=== PATIENT | male | born 1945 | race Caucasian/White ===

== ENCOUNTER 2022-01-02 10:42 | Outpatient (CLI) | payer MEDICARE, BC, SELFPAY ==
[2022-01-02] MEDS: TETRACAINE 0.5% OPHTH 1 DROP EYE-BOTH ×3 (11:01→11:33)
[2022-01-02] MEDS: BRIMONIDINE TARTRATE 0.2% OPHTH 1 DROP EYE-BOTH ×2 (11:02→11:42)
[2022-01-02 11:13] VITALS: BP 165/79; RESP 16; O2SAT 98
--- NOTE | 2022-01-02 15:15 | PM.PROC ---
Procedure Note Will [facility] bill your pro fee for this procedure?: Yes Procedure: SURGEON: Kia Mendenhall MD PREOPERATIVE DIAGNOSIS: Posterior capsular opacity, right and left eye POSTOPERATIVE DIAGNOSIS: Posterior capsular opacity, right and left eye PROCEDURE: YAG laser capsulotomy, both eyes ANESTHESIA: Topical. ESTIMATED BLOOD LOSS: None PATHOLOGY SPECIMEN: None COMPLICATIONS: None INDICATIONS: See consult note for details. The risks, benefits and alternatives of the procedure were explained to the patient, who elected to proceed and signed informed consent to do so. PROCEDURE: The patient was brought to the pre-holding area where the right and left eyes were identified as the operative eyes. I placed my initials above the eyes. The following was given in both eyes: The patient received 2 sets of 1 drop of 0.5% tetracaine and 1 drop of 1% tropicamide. They also received 1 drop of 0.2% brimonidine. They received 1 drop of 0.5% tetracaine immediately prior to bringing them back for the procedure. The patient was then brought to the procedure room where the right and left eyes were again identified as the operative eyes. A YAG Daniel capsulotomy lens was placed on the right eye. The laser was administered using a total number of 8 shots with an energy of 2.4 mJ per shot for a total energy of 19 mJ. The patient tolerated the procedure well. A YAG Daniel capsulotomy lens was placed on the left eye. The laser was administered using a total number of 11 shots with an energy of 2.4 mJ per shot for a total energy of 26 mJ. The patient tolerated the procedure well. DISPOSITION: The patient was taken back to the pre-holding area and given 1 drop of 0.2% brimonidine in both eyes. They were discharged to home in stable condition. The patient was instructed to call me or go to the emergency department with any sudden change, including dramatic loss of vision, severe pain in the eye or eyebrow region, nausea, or vomiting. The patient was instructed to use the 0.2% brimonidine 1 drop 2 times a day in both eyes for 1 week. The patient will follow up in the clinic in 1-2 weeks.
== END 2022-01-02 11:45 | disposition home or self-care (01) ==
PROVIDERS: Visit Provider Ophthalmology
DX: H26.9 Unspecified cataract (principal)
CPT/HCPCS: 66821; A9270

== ENCOUNTER 2022-07-15 09:20 | Outpatient (CLI) | payer MEDICARE, BC, SELFPAY ==
[2022-07-15 12:37] LABS: Albumin* 4.1 g/dL (3.3-5.0)
[2022-07-15 12:38] LABS: Chloride* 106 mmol/L (96-114); Potassium* 4.5 mmol/L (3.6-5.1); Sodium* 141 mmol/L (135-149)
[2022-07-15 12:40] LABS: Carbon Dioxide* 32 mmol/L (20-32); Cholesterol* 214 mg/dL (90-199); Creatinine* 0.9 mg/dL (0.5-1.5); Estimated Glomerular Filt Rate 87 ml/min; Total Protein* 6.7 g/dL (6.0-8.3)
[2022-07-15 12:41] LABS: Alanine Aminotransferase* 22 U/L (4-50); Alkaline Phosphatase* 67 U/L (40-150); Aspartate Amino Transferase* 22 U/L (12-35); Blood Urea Nitrogen* 25 mg/dL (7-30); Glucose* 110 mg/dL (60-115); HDL Cholesterol* 71 mg/dL (>=40); LDL Cholesterol Calculated 129 mg/dL (<100); Triglycerides* 68 mg/dL (40-149)
[2022-07-15 13:11] LABS: PSA Screen* 3.04 ng/mL (0.10-4.00)
== END 2022-07-15 09:21 | disposition home or self-care (01) ==
PROVIDERS: PCP Internal Medicine; Visit Provider Internal Medicine
DX: Z00.00 Encounter for general adult medical examination without abnormal findings (principal); I42.9 Cardiomyopathy, unspecified; N40.0 Benign prostatic hyperplasia without lower urinary tract symptoms; I10 Essential (primary) hypertension; Z12.5 Encounter for screening for malignant neoplasm of prostate
CPT/HCPCS: 80053; 80061; 84153

== ENCOUNTER 2023-05-07 14:05 | Outpatient (CLI) | payer MEDICARE, BC, SELFPAY | END 2023-05-07 14:06 | disposition home or self-care (01) | PROVIDERS: PCP Internal Medicine; Visit Provider Internal Medicine Cardiovascular Disease | DX: I42.9 Cardiomyopathy, unspecified (principal); I77.810 Thoracic aortic ectasia; I34.0 Nonrheumatic mitral (valve) insufficiency; I51.7 Cardiomegaly; I10 Essential (primary) hypertension; R73.03 Prediabetes | CPT/HCPCS: 80048; 80076; 84443; 93306 ==

== ENCOUNTER 2023-06-14 05:52 | Outpatient (CLI) | payer MEDICARE, BC, SELFPAY | END 2023-06-14 05:53 | disposition home or self-care (01) | LOC: AMB 06-16 09:37 | PROVIDERS: PCP Internal Medicine; Visit Provider Internal Medicine | DX: R10.9 Unspecified abdominal pain (principal) | CPT/HCPCS: A0425; A0427 ==

== ENCOUNTER 2023-06-14 06:36 | Observation (INO) | payer MEDICARE, BC, SELFPAY ==
[2023-06-14] VITALS (56 sets, daily range): BP systolic 121–169; BP diastolic 76–114; PULSE 67–96; RESP 16–18; TEMP 36.1–37.1; O2SAT 92–100
--- NOTE | 2023-06-14 | CRLHL7_ITS ---
For Patients: As a result of the 21st Century Cures Act, medical imaging exams and procedure reports are released immediately into your electronic medical record. You may view this report before your referring provider. If you have questions, please contact your health care provider. Indication: Left-sided temporal mass, right leg weakness Technique: High-resolution sagittal and coronal, pre and postcontrast T1 weighted sequences through the pituitary gland, axial diffusion, T2 FLAIR sequences are provided. A total of 15 mL Dotarem IV contrast was administered. Comparison: Earlier same day CT head and MRA head Findings: There is artifact from patient motion, degrading image quality. Mild prominence of the ventricles and cortical sulci, compatible with generalized cerebral volume loss. Patchy areas of FLAIR hyperintensity throughout the supratentorial white matter, typical of chronic microangiopathy. No acute/subacute ischemic, intracranial hemorrhage or abnormal extra-axial fluid collection. No midline shift, hydrocephalus, or herniation. There is a lobulated homogeneously enhancing extra-axial mass centered along the right anterior clinoid process and extending along the sphenoid wing. Oblique orthogonal dimensions in axial plane are estimated at 2.8 x 1.4 cm (series 23, image 74), and approximately 2.3 cm craniocaudal the coronal plane (series 24 image 117). Allowing for artifact from patient motion, suspect up to 270 degree encasement of the right supraclinoid ICA/terminus, without evidence of luminal narrowing. Also suspect encroachment upon the pre chiasmatic right optic nerve. No evidence suspicious regions of abnormal contrast enhancement within the sella. The optic chiasm and infundibulum are midline and within normal limits. Mild mucosal thickening throughout the maxillary sinuses and ethmoid air cells. No paranasal sinus air-fluid level. Nonspecific right mastoid effusion. Bilateral lens implants. Impression: 1. Lobulated homogeneously enhancing extra-axial mass centered along the right anterior clinoid process and sphenoid wing, most suggestive of meningioma. 2. 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 3. Unremarkable MR appearance of the sella/pituitary gland. No acute intracranial abnormality. 4. Mild generalized cerebral volume loss and moderate chronic microangiopathy changes. Dictated by Jaylin Wooten MD @ 06/14/2023 1:47:42 PM (Electronically Signed)
--- NOTE | 2023-06-14 | CRLHL7_ITS ---
For Patients: As a result of the Century Cures Act, medical imaging exams and procedure reports are released immediately into your electronic medical record. You may view this report before your referring provider. If you have questions, please contact your health care provider. Indication: Left-sided temporal mass, right leg weakness Technique: 3D [id number] MR angiogram of the [id number] with 3-dimensional MIP projections were submitted. Axial DWI/ADC sequences were also obtained through the brain. Comparison: No prior studies available for comparison at this institution. Findings: The visualized first and second order intracranial vessels are unremarkable. No occlusion/filling defect or acquired arterial stenosis identified. No aneurysm or vascular malformation seen. No abnormal restricted diffusion. Impression: 1. Unremarkable MRA of the head as far as visualized. 2. No evidence of acute/subacute ischemia. Dictated by Jaylin Wooten MD @ 06/14/2023 11:52:02 AM (Electronically Signed)
--- NOTE | 2023-06-14 06:57 | CRLHL7_ITS ---
For Patients: As a result of the Century Cures Act, medical imaging exams and procedure reports are released immediately into your electronic medical record. You may view this report before your referring provider. If you have questions, please contact your health care provider. INDICATION: Vertigo. TECHNIQUE: CT head without contrast. COMPARISON: None. FINDINGS: CSF spaces: Within normal limits for age. Brain parenchyma and extra-axial spaces: A 2 cm partially calcified right parasellar mass is seen for example on axial series 2, image 26. No mass seen elsewhere. No intracranial hemorrhage and no sign of acute ischemia. No mass effect or midline shift. There are moderate chronic microvascular changes. Skull base and calvarium: Trace effusion in the right mastoid air cells and middle ear. The visualized orbits are grossly unremarkable. No skull fractures. IMPRESSION: 1. No acute abnormality evident. 2. 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 This should be further evaluated with contrast-enhanced brain MRI. 3. Trace effusion in the right mastoid air cells and middle ear. 4. No other finding to explain vertigo. Please note that all CT scans at this facility use dose modulation, iterative reconstruction, and/or weight-based dosing when appropriate to reduce radiation dose to as low as reasonably achievable. Dictated by Drew Corrales MD @ 06/14/2023 7:29:25 AM (Electronically Signed)
--- NOTE | 2023-06-14 06:59 | ED_ITS ---
HPI - General Adult General Chief complaint: Nausea/Vomiting <Vitaliy Solo MD - Last Filed: 06/14/23 07:07> Stated complaint: nausea, abdominal pain, dizziness <Vitaliy Solo MD - Last Filed: 06/14/23 07:07> Time Seen by Provider: 06/14/23 06:57 <Vitaliy Solo MD - Last Filed: 06/14/23 07:07> History of Present Illness HPI narrative: Patient is a 78-year-old gentleman who woke up during the night to go the restroom and feels like he moved his head too fast. As result he has developed dizziness which is worsened with head movement. He has never had vertigo like this in the past. He has had no other neurologic symptoms. He has had no chest pain shortness a breath orthopnea no PND. He has been up vomiting with tonight but has had no blood in his vomitus. He has had no change in his bowels. He has no pain. Patient id due to his symptoms alerted EMS who brought to the emergency room. <Vitaliy Solo MD - Last Filed: 06/14/23 07:07> Related Data Home medications: Home Medications Medication Instructions Recorded Confirmed amiodarone 200 mg tablet 200 mg PO QDAY 07/15/22 05/21/23 apixaban 5 mg tablet (Eliquis) 5 mg PO BID 07/15/22 05/21/23 metoprolol succinate 50 mg tab PO 07/15/22 05/21/23 tablet,extended release 24 hr lisinopril 20 mg tablet 40 mg PO QDAY 01/03/23 05/21/23 spironolactone 25 mg tablet 25 mg PO QDAY 06/09/23 <Vitaliy Solo MD - Last Filed: 06/14/23 07:07> Allergies/adverse reactions: Allergies Allergy/AdvReac Type Severity Reaction Status Date / Time No Known Drug Allergies Allergy Verified 05/21/23 08:40 <Vitaliy Solo MD - Last Filed: 06/14/23 07:07> Review of Systems Status of ROS: Reports: 10 or more systems reviewed and unremarkable except as noted in History and below <Vitaliy Solo MD - Last Filed: 06/14/23 07:07> PFSH PFSH Medical History: Medical History Nausea ?R11.0 - Nausea (ICD-10) Chronic neck and back pain ?M54.2 - Cervicalgia (ICD-10) ?M54.9 - Dorsalgia, unspecified (ICD-10) ?G89.29 - Other chronic pain (ICD-10) Neck Pain ?M54.2 - Cervicalgia (ICD-10) Lyme disease ?A69.20 - Lyme disease, unspecified (ICD-10) Sciatica ?M54.30 - Sciatica, unspecified side (ICD-10) Prediabetes ?R73.03 - Prediabetes (ICD-10) Ascending aorta dilation ?I77.810 - Thoracic aortic ectasia (ICD-10) Cardiomyopathy ?I42.9 - Cardiomyopathy, unspecified (ICD-10) Prostate enlargement ?N40.0 - Benign prostatic hyperplasia without lower urinary tract symptoms (ICD-10) Adrenal abnormality (09/21/21) ?E27.9 - Disorder of adrenal gland, unspecified (ICD-10) History of nephrolithiasis ?Z87.442 - Personal history of urinary calculi (ICD-10) PAF (paroxysmal atrial fibrillation) ?I48.0 - Paroxysmal atrial fibrillation (ICD-10) Mitral regurgitation ?I34.0 - Nonrheumatic mitral (valve) insufficiency (ICD-10) Memory loss, short term ?R41.3 - Other amnesia (ICD-10) History of elevated prostate specific antigen (PSA) ?Z87.898 - Personal history of other specified conditions (ICD-10) Hypertension ?I10 - Essential (primary) hypertension (ICD-10) <Vitaliy Solo MD - Last Filed: 06/14/23 07:07> Surgical History: Surgical History History of cardioversion ?Z92.89 - Personal history of other medical treatment (ICD-10) History of cataract surgery (2016) ?Z98.49 - Cataract extraction status, unspecified eye (ICD-10) <Vitaliy Solo MD - Last Filed: 06/14/23 07:07> Family History: Family History Father Coronary artery disease High cholesterol Mother Diabetes High cholesterol High blood pressure <Vitaliy Solo MD - Last Filed: 06/14/23 07:07> Social History: Social History Smoking Status: Never smoker Non-prescribed substance use: denies use Little interest or pleasure in doing things: not at all Feeling down, depressed, or hopeless: not at all <Vitaliy Solo MD - Last Filed: 06/14/23 07:07> Exam Narrative: Exam Narrative: EXAM GENERAL: Patient appears comfortable and well. EYES: No scleral icterus. ENT: Tympanic membranes and oropharynx normal. THYROID: no thyroid nodules or thyromegaly. LYMPH: No supraclavicular or cervical lymphadenopathy. SKIN: Visible skin seen during exam normal or with benign process only. EXT: No dependent lower extremity pedal edema. HEART: Regular rate and rhythm with no murmurs, rubs, or gallops. LUNGS: Clear to auscultation bilaterally with no crackles or wheezes. ABD: Soft, non tender, non distended. PSYCH: Good eye contact, speech is not pressured. Neurologic cranial nerves 2-12 grossly intact no focal defects. <Vitaliy Solo MD - Last Filed: 06/14/23 07:07> Const: Vital Signs, click to edit/add: Vital Signs - 24 hr 06/14/23 06:49 06/14/23 06:56 06/14/23 07:00 Temperature 97.0 F L Pulse Rate 71 72 Pulse Rate [Right Pulse Oximeter] 72 Respiratory Rate 16 Blood Pressure Blood Pressure [Ri ght Upper Arm] 121/94 H Pulse Oximetry 100 100 100 Oxygen Delivery Me thod Room Air 06/14/23 07:03 06/14/23 07:27 06/14/23 07:29 Temperature Pulse Rate 68 72 73 Pulse Rate [Right Pulse Oximeter] Respiratory Rate Blood Pressure 161/87 H 163/93 H Blood Pressure [Ri ght Upper Arm] Pulse Oximetry 100 100 100 Oxygen Delivery Me thod 06/14/23 07:30 06/14/23 07:32 06/14/23 07:45 Temperature Pulse Rate 73 70 67 Pulse Rate [Right Pulse Oximeter] Respiratory Rate Blood Pressure 160/105 H Blood Pressure [Ri ght Upper Arm] Pulse Oximetry 100 99 [facility] 07:47 06/14/23 08:00 06/14/23 08:02 Temperature Pulse Rate 70 70 68 Pulse Rate [Right Pulse Oximeter] Respiratory Rate Blood Pressure 142/84 H 148/84 H Blood Pressure [Ri ght Upper Arm] Pulse Oximetry 95 92 94 [facility] 06[facility]23 08:17 06/14/23 08:32 06/14/23 08:47 Temperature Pulse Rate Pulse Rate [Right Pulse Oximeter] Respiratory Rate Blood Pressure 166/94 H 157/95 H 143/80 H Blood Pressure [Ri ght Upper Arm] Pulse Oximetry [facility] 06/[facility]/23 09:02 06/14/23 09:08 06/14/23 09:17 Temperature Pulse Rate 71 Pulse Rate [Right Pulse Oximeter] Respiratory Rate Blood Pressure 137/90 H 146/82 H Blood Pressure [Ri ght Upper Arm] Pulse Oximetry 98 [facility] 06/[facility]/23 09:25 06/14/23 09:30 06/14/23 09:32 Temperature Pulse Rate 76 71 71 Pulse Rate [Right Pulse Oximeter] Respiratory Rate Blood Pressure 153/91 H Blood Pressure [Ri ght Upper Arm] Pulse Oximetry 99 95 96 [facility] 06/14/23 09:45 06/14/23 09:47 06/14/23 09:48 Temperature Pulse Rate 71 74 71 Pulse Rate [Right Pulse Oximeter] Respiratory Rate Blood Pressure 162/99 H Blood Pressure [Ri ght Upper Arm] Pulse Oximetry 98 100 97 [facility] 06/14/23 10:00 06/14/23 12:18 06/14/23 12:30 Temperature Pulse Rate 79 77 72 Pulse Rate [Right Pulse Oximeter] Respiratory Rate Blood Pressure Blood Pressure [Ri ght Upper Arm] Pulse Oximetry 99 99 100 [facility] 06/14/23 12:32 06/14/23 12:45 06/14/23 12:47 Temperature Pulse Rate 71 75 72 Pulse Rate [Right Pulse Oximeter] Respiratory Rate Blood Pressure 158/89 H 153/96 H Blood Pressure [Ri ght Upper Arm] Pulse Oximetry 97 100 96 Oxygen Delivery Me thod 06/14/23 13:00 06/14/23 13:02 06/14/23 13:03 Temperature Pulse Rate 73 74 73 Pulse Rate [Right Pulse Oximeter] Respiratory Rate Blood Pressure 152/86 H Blood Pressure [Ri ght Upper Arm] Pulse Oximetry 99 100 100 Oxygen Delivery Me thod 06/14/23 13:15 06/14/23 13:17 06/14/23 13:30 Temperature Pulse Rate 77 75 73 Pulse Rate [Right Pulse Oximeter] Respiratory Rate Blood Pressure 137/81 Blood Pressure [Ri ght Upper Arm] Pulse Oximetry 99 99 97 Oxygen Delivery Me thod 06/14/23 13:32 06/14/23 13:45 06/14/23 13:47 Temperature Pulse Rate 74 77 74 Pulse Rate [Right Pulse Oximeter] Respiratory Rate Blood Pressure 148/82 H 153/86 H Blood Pressure [Ri ght Upper Arm] Pulse Oximetry 96 100 97 Oxygen Delivery Me thod 06/14/23 14:00 06/14/23 14:02 06/14/23 14:17 Temperature Pulse Rate 72 74 Pulse Rate [Right Pulse Oximeter] Respiratory Rate Blood Pressure 145/84 H 158/95 H Blood Pressure [Ri ght Upper Arm] Pulse Oximetry 97 96 Oxygen Delivery Me thod 06/14/23 14:26 06/14/23 14:30 06/14/23 14:32 Temperature Pulse Rate 79 80 75 Pulse Rate [Right Pulse Oximeter] Respiratory Rate Blood Pressure 169/87 H Blood Pressure [Ri ght Upper Arm] Pulse Oximetry 99 98 98 Oxygen Delivery Me thod 06/14/23 14:45 06/14/23 14:47 06/14/23 15:00 Temperature Pulse Rate 73 76 75 Pulse Rate [Right Pulse Oximeter] Respiratory Rate Blood Pressure 160/86 H Blood Pressure [Ri ght Upper Arm] Pulse Oximetry 98 94 99 Oxygen Delivery Me thod 06/14/23 15:02 06/14/23 15:15 06/14/23 15:17 Temperature Pulse Rate 75 78 79 Pulse Rate [Right Pulse Oximeter] Respiratory Rate Blood Pressure 156/93 H 149/89 H Blood Pressure [Ri ght Upper Arm] Pulse Oximetry 94 98 97 Oxygen Delivery Me thod <Vitaliy Solo MD - Last Filed: 06/14/23 07:07> Vital Signs, click to edit/add: Vital Signs - 24 hr 06/14/23 06:49 06/14/23 06:56 06/14/23 07:00 Temperature 97.0 F L Pulse Rate 71 72 Pulse Rate [Right Pulse Oximeter] 72 Respiratory Rate 16 Blood Pressure Blood Pressure [Ri ght Upper Arm] 121/94 H Pulse Oximetry 100 100 100 Oxygen Delivery Me od Room Air 06/14/23 07:03 06/14/23 07:27 06/14/23 07:29 Temperature Pulse Rate 68 72 73 Pulse Rate [Right Pulse Oximeter] Respiratory Rate Blood Pressure 161/87 H 163/93 H Blood Pressure [Ri ght Upper Arm] Pulse Oximetry 100 100 100 Oxygen Delivery Me thod 06/14/23 07:30 06/14/23 07:32 06/14/23 07:45 Temperature Pulse Rate 73 70 67 Pulse Rate [Right Pulse Oximeter] Respiratory Rate Blood Pressure 160/105 H Blood Pressure [Ri ght Upper Arm] Pulse Oximetry 100 99 98 [facility] 06[facility] 07:47 06/14/23 08:00 06/14/23 08:02 Temperature Pulse Rate 70 70 68 Pulse Rate [Right Pulse Oximeter] Respiratory Rate Blood Pressure 142/84 H 148/84 H Blood Pressure [Ri ght Upper Arm] Pulse Oximetry 95 92 94 [facility] 06[facility]23 08:17 06/14/23 08:32 06/14/23 08:47 Temperature Pulse Rate Pulse Rate [Right Pulse Oximeter] Respiratory Rate Blood Pressure 166/94 H 157/95 H 143/80 H Blood Pressure [Ri ght Upper Arm] Pulse Oximetry Oxygen Delivery Tx thod 06/14/23 09:02 06/14/23 09:08 06/14/23 09:17 Temperature Pulse Rate 71 Pulse Rate [Right Pulse Oximeter] Respiratory Rate Blood Pressure 137/90 H 146/82 H Blood Pressure [Ri ght Upper Arm] Pulse Oximetry 98 Oxygen Delivery Tx thod 06/14/23 09:25 06/14/23 09:30 06/14/23 09:32 Temperature Pulse Rate 76 71 71 Pulse Rate [Right Pulse Oximeter] Respiratory Rate Blood Pressure 153/91 H Blood Pressure [Ri ght Upper Arm] Pulse Oximetry 99 95 96 [facility] 06[facility]/23 09:45 06/14/23 09:47 06/14/23 09:48 Temperature Pulse Rate 71 74 71 Pulse Rate [Right Pulse Oximeter] Respiratory Rate Blood Pressure 162/99 H Blood Pressure [Ri ght Upper Arm] Pulse Oximetry 98 100 97 Oxygen Delivery Me thod 06/14/23 10:00 06/14/23 12:18 06/14/23 12:30 Temperature Pulse Rate 79 77 72 Pulse Rate [Right Pulse Oximeter] Respiratory Rate Blood Pressure Blood Pressure [Ri ght Upper Arm] Pulse Oximetry 99 99 100 Oxygen Delivery Me thod 06/14/23 12:32 06/14/23 12:45 06/14/23 12:47 Temperature Pulse Rate 71 75 72 Pulse Rate [Right Pulse Oximeter] Respiratory Rate Blood Pressure 158/89 H 153/96 H Blood Pressure [Ri ght Upper Arm] Pulse Oximetry 97 100 96 Oxygen Delivery Me thod 06/14/23 13:00 06/14/23 13:02 06/14/23 13:03 Temperature Pulse Rate 73 74 73 Pulse Rate [Right Pulse Oximeter] Respiratory Rate Blood Pressure 152/86 H Blood Pressure [Ri ght Upper Arm] Pulse Oximetry 99 100 100 Oxygen Delivery Me thod 06/14/23 13:15 06/14/23 13:17 06/14/23 13:30 Temperature Pulse Rate 77 75 73 Pulse Rate [Right Pulse Oximeter] Respiratory Rate Blood Pressure 137/81 Blood Pressure [Ri ght Upper Arm] Pulse Oximetry 99 99 97 Oxygen Delivery Me thod 06/14/23 13:32 06/14/23 13:45 06/14/23 13:47 Temperature Pulse Rate 74 77 74 Pulse Rate [Right Pulse Oximeter] Respiratory Rate Blood Pressure 148/82 H 153/86 H Blood Pressure [Ri ght Upper Arm] Pulse Oximetry 96 100 97 Oxygen Delivery Me thod 06/14/23 14:00 06/14/23 14:02 06/14/23 14:17 Temperature Pulse Rate 72 74 Pulse Rate [Right Pulse Oximeter] Respiratory Rate Blood Pressure 145/84 H 158/95 H Blood Pressure [Ri ght Upper Arm] Pulse Oximetry 97 96 Oxygen Delivery Me thod 06/14/23 14:26 06/14/23 14:30 06/14/23 14:32 Temperature Pulse Rate 79 80 75 Pulse Rate [Right Pulse Oximeter] Respiratory Rate Blood Pressure 169/87 H Blood Pressure [Ri ght Upper Arm] Pulse Oximetry 99 98 98 Oxygen Delivery Me thod 06/14/23 14:45 06/14/23 14:47 06/14/23 15:00 Temperature Pulse Rate 73 76 75 Pulse Rate [Right Pulse Oximeter] Respiratory Rate Blood Pressure 160/86 H Blood Pressure [Ri ght Upper Arm] Pulse Oximetry 98 94 99 Oxygen Delivery Me thod 06/14/23 15:02 06/14/23 15:15 06/14/23 15:17 Temperature Pulse Rate 75 78 79 Pulse Rate [Right Pulse Oximeter] Respiratory Rate Blood Pressure 156/93 H 149/89 H Blood Pressure [Ri ght Upper Arm] Pulse Oximetry 94 98 97 Oxygen Delivery Me thod <Leonel Gonzalez MD - Last Filed: 06/14/23 16:13> Course Course ED Course: Patient seen and examined. CT of the head CBC basic metabolic panel UA troponin EKG ordered. Patient given 4 mg of Zofran in route by EMS will give 1 L of normal saline. <Vitaliy Solo MD - Last Filed: 06/14/23 07:07> Reevaluation(s) Time of Reevaluation #1: 08:23 <Leonel Gonzalez MD - Last Filed: 06/14/23 16:13> Reevaluation #1: Patient is signed over to me from going provider. I went in met with the patient, he still feels weak, says he is not really dizzy and unless he moves his head. Denies any numbness tingling weakness in the hands or the feet. Still feels that he may vomit, despite getting Zofran in the ambulance. He is able to smile for me, his vital signs are reasonable. He is able to move all of his extremities, with no evidence of any weakness. Chest is good air entry heart sounds are normal, he does have nystagmus horizontally, a [address], his ears are otherwise normal. And his external canals are normal. Will try some more fluids, along with the some Ativan, he does have a finding on his CT, on the left parasellar region. Consistent with this calcified, abnormality will need an MRI with and without contrast with this can be done as an outpatient if he improves. The outgoing ER physician was actually his primary care physician, and agreed to see him in follow-up. <Leonel Gonzalez MD - Last Filed: 06/14/23 16:13> Time of Reevaluation #2: 10:12 <Leonel Gonzalez MD - Last Filed: 06/14/23 16:13> Reevaluation #2: Patient's was in attendance, I was able to talk to her, he has a history of approximately 4-6 weeks of right-sided proximal leg weakness, to the point now that he normally walk 2 miles that he is unable to walk more than 50 ft. He has fallen a couple times associated with this, they think it might be from her previous skin cancer surgery there. I also have the option of an MRI, MRA of the head, as 1 of my x-ray techs is doubly trained. Given the above findings, I have counseled the family, inpatient that we will proceed with an MRI, MRA of the head with and without contrast, to further delineate what is going on, with the left-sided temporal sellar mass. <Leonel Gonzalez MD - Last Filed: 06/14/23 16:13> Time of Reevaluation #3: 14:43 <Leonel Gonzalez MD - Last Filed: 06/14/23 16:13> Reevaluation #3: I spoke to from Neurology at [facility], she reviewed the MRI, CT, CTA. She does not think that any of this could be causing, vertigo, and agrees with me given the normality of the blood flow of the MRA MRI. That this is unlikely to be stroke. We tried to sit up, and stand Jeronimo, but clearly this is not happening, I think he needs to be admitted to the hospital, his he has had a high risk for falls and injury, for his vertigo and nausea vomiting. I will speak to the hospitalist <Leonel Gonzalez MD - Last Filed: 06/14/23 16:13> Additional Reevaluation(s): Spoke to the hospitalist Soham, I did not connect with Neurosurgery, this will need to be done for this patient, to see which can follow-up and how soon needed. <Leonel Gonzalez MD - Last Filed: 06/14/23 16:13> Vital Signs Vital signs: Initial Vital Signs Temperature 97.0 F L 06/14/23 06:49 Temperature Source Temporal Artery Scan 06/14/23 06:49 Pulse Rate 72 06/14/23 06:49 Pulse Rhythm Regular 06/14/23 06:49 Respiratory Rate 16 06/14/23 06:49 Blood Pressure 121/94 H 06/14/23 06:49 Blood Pressure Mean 103 06/14/23 06:49 Blood Pressure Position Semi-Fowlers 06/14/23 06:49 Pulse Oximetry 100 06/14/23 06:49 Oxygen Delivery Method Room Air 06/14/23 06:49 Vital Signs Temperature 97.0 F L 06/14/23 06:49 Pulse Rate 72 06/14/23 06:49 Respiratory Rate 16 06/14/23 06:49 Blood Pressure 121/94 H 06/14/23 06:49 Pulse Oximetry 100 06/14/23 06:49 Oxygen Delivery Method Room Air 06/14/23 06:49 Temperature 97.0 F L 06/14/23 06:49 Pulse Rate 79 06/14/23 15:17 Respiratory Rate 16 06/14/23 06:49 Blood Pressure 149/89 H 06/14/23 15:17 Pulse Oximetry 97 06/14/23 15:17 Oxygen Delivery Method Room Air 06/14/23 06:49 <Vitaliy Solo MD - Last Filed: 06/14/23 07:07> Initial Vital Signs Temperature 97.0 F L 06/14/23 06:49 Temperature Source Temporal Artery Scan 06/14/23 06:49 Pulse Rate 72 06/14/23 06:49 Pulse Rhythm Regular 06/14/23 06:49 Respiratory Rate 16 06/14/23 06:49 Blood Pressure 121/94 H 06/14/23 06:49 Blood Pressure Mean 103 06/14/23 06:49 Blood Pressure Position Semi-Fowlers 06/14/23 06:49 Pulse Oximetry 100 06/14/23 06:49 Oxygen Delivery Method Room Air 06/14/23 06:49 Vital Signs Temperature 97.0 F L 06/14/23 06:49 Pulse Rate 72 06/14/23 06:49 Respiratory Rate 16 06/14/23 06:49 Blood Pressure 121/94 H 06/14/23 06:49 Pulse Oximetry 100 06/14/23 06:49 Oxygen Delivery Method Room Air 06/14/23 06:49 Temperature 97.0 F L 06/14/23 06:49 Pulse Rate 79 06/14/23 15:17 Respiratory Rate 16 06/14/23 06:49 Blood Pressure 149/89 H 06/14/23 15:17 Pulse Oximetry 97 06/14/23 15:17 Oxygen Delivery Method Room Air 06/14/23 06:49 <Leonel Gonzalez MD - Last Filed: 06/14/23 16:13> Medications Administered Medications: Discontinued Medications Generic Name Dose Route Start Last Admin Trade Name Thaddeusq PRN Reason Stop Dose Admin Acetaminophen 1,000 mg 06/14/23 08:39 06/14/23 08:51 Acetaminophen 500 Mg Tablet PO 06/14/23 08:40 1,000 mg ONCE ONE Administration Sodium Chloride 1,000 mls @ 1,000 mls/hr 06/14/23 06:58 06/14/23 09:47 0.9 % Sodium Chloride 1000 Ml IV 06/14/23 07:57 Infused .Q1H JOSE J Infusion Sodium Chloride 1,000 mls @ 1,000 mls/hr 06/14/23 08:15 06/14/23 08:22 0.9 % Sodium Chloride 1000 Ml IV 06/14/23 09:14 Infused .Q1H JOSE J Infusion Lorazepam 1 mg 06/14/23 08:13 06/14/23 08:35 Lorazepam 2 Mg/Ml Inj IVP 06/14/23 08:14 1 mg ONCE ONE Administration Metoclopramide HCl 5 mg 06/14/23 12:22 06/14/23 12:26 Metoclopramide Hcl 5 Mg/Ml Inj IVP 06/14/23 12:23 5 mg ONCE ONE Administration Ondansetron HCl 4 mg 06/14/23 06:58 06/14/23 15:42 Ondansetron 2 Mg/Ml Inj IVP 06/14/23 06:59 Not Given ONCE ONE Promethazine HCl 12.5 mg 06/14/23 14:55 06/14/23 15:12 Promethazine 25 Mg/Ml Inj IVP 06/14/23 14:56 12.5 mg ONCE ONE Administration <Vitaliy Solo MD - Last Filed: 06/14/23 07:07> Discontinued Medications Generic Name Dose Route Start Last Admin Trade Name Emily PRN Reason Stop Dose Admin Acetaminophen 1,000 mg 06/14/23 08:39 06/14/23 08:51 Acetaminophen 500 Mg Tablet PO 06/14/23 08:40 1,000 mg ONCE ONE Administration Sodium Chloride 1,000 mls @ 1,000 mls/hr 06/14/23 06:58 06/14/23 09:47 0.9 % Sodium Chloride 1000 Ml IV 06/14/23 07:57 Infused .Q1H JOSE J Infusion Sodium Chloride 1,000 mls @ 1,000 mls/hr 06/14/23 08:15 06/14/23 08:22 0.9 % Sodium Chloride 1000 Ml IV 06/14/23 09:14 Infused .Q1H JOSE J Infusion Lorazepam 1 mg 06/14/23 08:13 06/14/23 08:35 Lorazepam 2 Mg/Ml Inj IVP 06/14/23 08:14 1 mg ONCE ONE Administration Metoclopramide HCl 5 mg 06/14/23 12:22 06/14/23 12:26 Metoclopramide Hcl 5 Mg/Ml Inj IVP 06/14/23 12:23 5 mg ONCE ONE Administration Ondansetron HCl 4 mg 06/14/23 06:58 06/14/23 15:42 Ondansetron 2 Mg/Ml Inj IVP 06/14/23 06:59 Not Given ONCE ONE Promethazine HCl 12.5 mg 06/14/23 14:55 06/14/23 15:12 Promethazine 25 Mg/Ml Inj IVP 06/14/23 14:56 12.5 mg ONCE ONE Administration <Leonel Gonzalez MD - Last Filed: 06/14/23 16:13> Medical Decision Making MDM Narrative Medical decision making narrative: Life-threatening differential diagnosis considered include, CVA, other differential diagnosis include BPPV, labyrinthitis, Meniere's disease, vestibular neuronitis, migraine, multiple sclerosis, otitis media, viral syndrome as well as other etiologies <Leonel Gonzalez MD - Last Filed: 06/14/23 16:13> Medical Records Medical records reviewed: Yes I reviewed the patient's medical records <Leonel Gonzalez MD - Last Filed: 06/14/23 16:13> Lab Data Lab results reviewed: Yes I reviewed the patient's lab results <Leonel Gonzlaez MD - Last Filed: 06/14/23 16:13> Labs: Lab Results 06/14/23 06/14/23 06/14/23 Range/Units 06:57 07:50 09:34 WBC 6.27 (4.50-11.00) K/uL RBC 4.57 (4.30-5.90) m/uL Hgb 14.2 (13.5-17.5) gm/dL Hct 42.6 (37.0-53.0) % MCV 93 (80-100) fL MCH 31 (26-34) pg MCHC 33 (32-36) gm/dL RDW Coeff of Shivani 12.2 (11.5-15.5) % Plt Count 185 (140-440) K/uL Neut % (Auto) 87.1 H (42.0-72.0) % Lymph % (Auto) 9.3 L (20-44) % [place] % (Auto) 3.0 (0.0-11.0) % Eos % (Auto) 0.2 (0.0-7.0) % Baso % (Auto) 0.2 (0.0-3.0) % Neut # (Auto) 5.50 (1.7-7.0) K/uL Lymph # (Auto) 0.60 L (0.90-2.90) K/uL [place] # (Auto) 0.20 (0.00-0.90) K/UL Eos # (Auto) 0.01 (0.00-0.50) K/uL Baso # (Auto) 0.01 (0.00-0.30) K/uL Abs Immat Gran (auto) 0.01 (0.00-0.30) K/uL Imm/Tot Granulo (auto) 0.2 % INR 1.07 (0.91-1.10) APTT 28 (23-33) Seconds Sodium 136 (135-149) mmol/L Potassium 4.6 (3.6-5.1) mmol/L Chloride 103 (96-114) mmol/L Carbon Dioxide 24 (20-32) mmol/L Anion Gap 9 (7-15) mEq/L BUN 24 (7-30) mg/dL Creatinine 0.7 (0.5-1.5) mg/dL Estimated GFR 94 ml/min Glucose 196 H (60-115) mg/dL Calcium 8.7 (8.4-10.6) mg/dL Troponin I < 0.01 L (0.01-0.04) ng/mL Urine Color Dark yellow (Yellow) Urine Appearance Clear (Clear) Urine pH 8.0 (5.0-8.5) Ur Specific [place] 1.020 (1.000-1.030) Urine Protein Negative (Negative) Urine Glucose (UA) 1+ A (Negative) Urine Ketones 3+ A (Negative) Urine Blood Negative (Negative) Urine Nitrite Negative (Negative) Urine Bilirubin Negative (Negative) Urine Urobilinogen 2.0 A (0.2-1.0) Ur Leukocyte Esterase Negative (Negative) Urine Opiates Screen Negative (Negative) Ur Oxycodone Screen Negative (Negative) Urine Methadone Screen Negative (Negative) Ur Propoxyphene Screen TNP Ur Barbiturates Screen Negative (Negative) U Tricyclic Antidepress Negative (Negative) Ur Phencyclidine Scrn Negative (Negative) Ur Amphetamines Screen Negative (Negative) U Methamphetamines Scrn Negative (Negative) U Benzodiazepines Scrn Negative (Negative) Urine Cocaine Screen Negative (Negative) U Marijuana (THC) Screen Negative (Negative) Ur Drug Screen Comment See Note SARS-CoV-2 (PCR) Negative SARS-CoV-2 (Negative) Influenza Type A (PCR) Negative PCR FLU A (Negative) Influenza Type B (PCR) Negative PCR FLU B (Negative) RSV (PCR) Negative PCR RSV (Negative) Lab Acknowledgement POC Troponin I (0.01-0.04) ng/ml 06/14/23 06/14/23 Range/Units 09:40 09:45 WBC (4.50-11.00) K/uL RBC (4.30-5.90) m/uL Hgb (13.5-17.5) gm/dL Hct (37.0-53.0) % MCV (80-100) fL MCH (26-34) pg MCHC (32-36) gm/dL RDW Coeff of Shivani (11.5-15.5) % Plt Count (140-440) K/uL Neut % (Auto) (42.0-72.0) % Lymph % (Auto) (20-44) % [place] % (Auto) (0.0-11.0) % Eos % (Auto) (0.0-7.0) % Baso % (Auto) (0.0-3.0) % Neut # (Auto) (1.7-7.0) K/uL Lymph # (Auto) (0.90-2.90) K/uL [place] # (Auto) (0.00-0.90) K/UL Eos # (Auto) (0.00-0.50) K/uL Baso # (Auto) (0.00-0.30) K/uL Abs Immat Gran (auto) (0.00-0.30) K/uL Imm/Tot Granulo (auto) % INR (0.91-1.10) APTT (23-33) Seconds Sodium (135-149) mmol/L Potassium (3.6-5.1) mmol/L Chloride (96-114) mmol/L Carbon Dioxide (20-32) mmol/L Anion Gap (7-15) mEq/L BUN (7-30) mg/dL Creatinine (0.5-1.5) mg/dL Estimated GFR ml/min Glucose (60-115) mg/dL Calcium (8.4-10.6) mg/dL Troponin I (0.01-0.04) ng/mL Urine Color (Yellow) Urine Appearance (Clear) Urine pH (5.0-8.5) Ur Specific [place] (1.000-1.030) Urine Protein (Negative) Urine Glucose (UA) (Negative) Urine Ketones (Negative) Urine Blood (Negative) Urine Nitrite (Negative) Urine Bilirubin (Negative) Urine Urobilinogen (0.2-1.0) Ur Leukocyte Esterase (Negative) Urine Opiates Screen (Negative) Ur Oxycodone Screen (Negative) Urine Methadone Screen (Negative) Ur Propoxyphene Screen Ur Barbiturates Screen (Negative) U Tricyclic Antidepress (Negative) Ur Phencyclidine Scrn (Negative) Ur Amphetamines Screen (Negative) U Methamphetamines Scrn (Negative) U Benzodiazepines Scrn (Negative) Urine Cocaine Screen (Negative) U Marijuana (THC) Screen (Negative) Ur Drug Screen Comment SARS-CoV-2 (PCR) (Negative) Influenza Type A (PCR) (Negative) Influenza Type B (PCR) (Negative) RSV (PCR) (Negative) Lab Acknowledgement Test Added POC Troponin I 0.02 (0.01-0.04) ng/ml <Vitaliy Solo MD - Last Filed: 06/14/23 07:07> Lab Results 06/14/23 06/14/23 06/14/23 Range/Units 06:57 07:50 09:34 WBC 6.27 (4.50-11.00) K/uL RBC 4.57 (4.30-5.90) m/uL Hgb 14.2 (13.5-17.5) gm/dL Hct 42.6 (37.0-53.0) % MCV 93 (80-100) fL MCH 31 (26-34) pg MCHC 33 (32-36) gm/dL RDW Coeff of Shivani 12.2 (11.5-15.5) % Plt Count 185 (140-440) K/uL Neut % (Auto) 87.1 H (42.0-72.0) % Lymph % (Auto) 9.3 L (20-44) % [place] % (Auto) 3.0 (0.0-11.0) % Eos % (Auto) 0.2 (0.0-7.0) % Baso % (Auto) 0.2 (0.0-3.0) % Neut # (Auto) 5.50 (1.7-7.0) K/uL Lymph # (Auto) 0.60 L (0.90-2.90) K/uL [place] # (Auto) 0.20 (0.00-0.90) K/UL Eos # (Auto) 0.01 (0.00-0.50) K/uL Baso # (Auto) 0.01 (0.00-0.30) K/uL Abs Immat Gran (auto) 0.01 (0.00-0.30) K/uL Imm/Tot Granulo (auto) 0.2 % INR 1.07 (0.91-1.10) APTT 28 (23-33) Seconds Sodium 136 (135-149) mmol/L Potassium 4.6 (3.6-5.1) mmol/L Chloride 103 (96-114) mmol/L Carbon Dioxide 24 (20-32) mmol/L Anion Gap 9 (7-15) mEq/L BUN 24 (7-30) mg/dL Creatinine 0.7 (0.5-1.5) mg/dL Estimated GFR 94 ml/min Glucose 196 H (60-115) mg/dL Calcium 8.7 (8.4-10.6) mg/dL Troponin I < 0.01 L (0.01-0.04) ng/mL Urine Color Dark yellow (Yellow) Urine Appearance Clear (Clear) Urine pH 8.0 (5.0-8.5) Ur Specific [place] 1.020 (1.000-1.030) Urine Protein Negative (Negative) Urine Glucose (UA) 1+ A (Negative) Urine Ketones 3+ A (Negative) Urine Blood Negative (Negative) Urine Nitrite Negative (Negative) Urine Bilirubin Negative (Negative) Urine Urobilinogen 2.0 A (0.2-1.0) Ur Leukocyte Esterase Negative (Negative) Urine Opiates Screen Negative (Negative) Ur Oxycodone Screen Negative (Negative) Urine Methadone Screen Negative (Negative) Ur Propoxyphene Screen TNP Ur Barbiturates Screen Negative (Negative) U Tricyclic Antidepress Negative (Negative) Ur Phencyclidine Scrn Negative (Negative) Ur Amphetamines Screen Negative (Negative) U Methamphetamines Scrn Negative (Negative) U Benzodiazepines Scrn Negative (Negative) Urine Cocaine Screen Negative (Negative) U Marijuana (THC) Screen Negative (Negative) Ur Drug Screen Comment See Note SARS-CoV-2 (PCR) Negative SARS-CoV-2 (Negative) Influenza Type A (PCR) Negative PCR FLU A (Negative) Influenza Type B (PCR) Negative PCR FLU B (Negative) RSV (PCR) Negative PCR RSV (Negative) Lab Acknowledgement POC Troponin I (0.01-0.04) ng/ml 06/14/23 06/14/23 Range/Units 09:40 09:45 WBC (4.50-11.00) K/uL RBC (4.30-5.90) m/uL Hgb (13.5-17.5) gm/dL Hct (37.0-53.0) % MCV (80-100) fL MCH (26-34) pg MCHC (32-36) gm/dL RDW Coeff of Shivani (11.5-15.5) % Plt Count (140-440) K/uL Neut % (Auto) (42.0-72.0) % Lymph % (Auto) (20-44) % [place] % (Auto) (0.0-11.0) % Eos % (Auto) (0.0-7.0) % Baso % (Auto) (0.0-3.0) % Neut # (Auto) (1.7-7.0) K/uL Lymph # (Auto) (0.90-2.90) K/uL [place] # (Auto) (0.00-0.90) K/UL Eos # (Auto) (0.00-0.50) K/uL Baso # (Auto) (0.00-0.30) K/uL Abs Immat Gran (auto) (0.00-0.30) K/uL Imm/Tot Granulo (auto) % INR (0.91-1.10) APTT (23-33) Seconds Sodium (135-149) mmol/L Potassium (3.6-5.1) mmol/L Chloride (96-114) mmol/L Carbon Dioxide (20-32) mmol/L Anion Gap (7-15) mEq/L BUN (7-30) mg/dL Creatinine (0.5-1.5) mg/dL Estimated GFR ml/min Glucose (60-115) mg/dL Calcium (8.4-10.6) mg/dL Troponin I (0.01-0.04) ng/mL Urine Color (Yellow) Urine Appearance (Clear) Urine pH (5.0-8.5) Ur Specific [place] (1.000-1.030) Urine Protein (Negative) Urine Glucose (UA) (Negative) Urine Ketones (Negative) Urine Blood (Negative) Urine Nitrite (Negative) Urine Bilirubin (Negative) Urine Urobilinogen (0.2-1.0) Ur Leukocyte Esterase (Negative) Urine Opiates Screen (Negative) Ur Oxycodone Screen (Negative) Urine Methadone Screen (Negative) Ur Propoxyphene Screen Ur Barbiturates Screen (Negative) U Tricyclic Antidepress (Negative) Ur Phencyclidine Scrn (Negative) Ur Amphetamines Screen (Negative) U Methamphetamines Scrn (Negative) U Benzodiazepines Scrn (Negative) Urine Cocaine Screen (Negative) U Marijuana (THC) Screen (Negative) Ur Drug Screen Comment SARS-CoV-2 (PCR) (Negative) Influenza Type A (PCR) (Negative) Influenza Type B (PCR) (Negative) RSV (PCR) (Negative) Lab Acknowledgement Test Added POC Troponin I 0.02 (0.01-0.04) ng/ml <Leonel Gonzalez MD - Last Filed: 06/14/23 16:13> ECG Data Attestation: I personally reviewed and interpreted this ECG as follows: <Leonel Gonzalez MD - Last Filed: 06/14/23 16:13> Interpretation: EKGs x2, reviewed by myself shows sinus rhythm with occasional PVCs. There is some lateral ST wave changes, but these are unchanged from the serial EKGs, and the troponins are negative. I know that he does have a cardiomyopat hy, and decreased EF. <Leonel Gonzalez MD - Last Filed: 06/14/23 16:13> Discharge Plan Discharge Clinical Impression: Suprasellar mass, Vertigo, Weakness <Vitaliy Solo MD - Last Filed: 06/14/23 07:07> Patient Disposition: Admitted As Observation <Vitaliy Solo MD - Last Filed: 06/14/23 07:07>
[2023-06-14 07:23] LABS: Chloride* 103 mmol/L (96-114); Potassium* 4.6 mmol/L (3.6-5.1); Sodium* 136 mmol/L (135-149)
[2023-06-14 07:25] LABS: Basophils Absolute Auto 0.01 K/uL (0.00-0.30); Basophils Percent Auto 0.2 % (0.0-3.0); Eosinophils Absolute Auto 0.01 K/uL (0.00-0.50); Eosinophils Percent Auto 0.2 % (0.0-7.0); Hematocrit 42.6 % (37.0-53.0); Hemoglobin* 14.2 gm/dL (13.5-17.5); Immature Granulocytes Abs Auto 0.01 K/uL (0.00-0.30); Immature Granulocytes Pct Auto 0.2 %; Lymphocytes Percent Auto 9.3 % (20-44); Mean Corpuscular HGB Conc 33 gm/dL (32-36); Mean Corpuscular Hemoglobin 31 pg (26-34); Mean Corpuscular Volume 93 fL (80-100); Neutrophils Percent Auto 87.1 % (42.0-72.0); Platelet Count* 185 K/uL (140-440); RDW Coefficient of Variation % 12.2 % (11.5-15.5); Red Blood Count 4.57 m/uL (4.30-5.90); White Blood Count* 6.27 K/uL (4.50-11.00)
[2023-06-14 07:26] LABS: Anion Gap 9 mEq/L (7-15); Blood Urea Nitrogen* 24 mg/dL (7-30); Carbon Dioxide* 24 mmol/L (20-32); Creatinine* 0.7 mg/dL (0.5-1.5); Estimated Glomerular Filt Rate 94 ml/min; Glucose* 196 mg/dL (60-115); Slide Review Reflex No
[2023-06-14 07:27] LABS: Calcium* 8.7 mg/dL (8.4-10.6)
[2023-06-14 07:41] LABS: Troponin I* < 0.01 ng/mL (0.01-0.04)
[2023-06-14 08:19] LABS: Appearance Urine Clear (Clear); Bilirubin Urine Negative (Negative); Blood Urine Negative (Negative); Color Urine Dark yellow (Yellow); Glucose Urine 1+ (Negative); Ketones Urine 3+ (Negative); Leukocyte Esterase Urine Negative (Negative); Nitrite Urine Negative (Negative); Protein Urine Negative (Negative)
[2023-06-14] MEDS: 0.9 % SODIUM CHLORIDE 1000 ml 1,000 ML IV ×2 (08:20→08:21)
[2023-06-14 08:29] LABS: Amphetamine Screen Urine Negative (Negative); Barbiturate Screen Urine Negative (Negative); Benzodiazepines Screen Urine Negative (Negative); Cannabinoid Screen Urine Negative (Negative); Cocaine Screen Urine Negative (Negative); Methadone Screen Urine Negative (Negative); Methamphetamines Screen Urine Negative (Negative); Opiate Screen Urine Negative (Negative); Oxycodone Screen Urine Negative (Negative); Phencyclidine Screen Urine Negative (Negative); Tricyclic Antidepressant Urine Negative (Negative)
[2023-06-14] MEDS: LORazepam 2 MG/ML inj 1 MG IVP (08:35)
[2023-06-14] MEDS: ACETAMINOPHEN 500 MG TABLET 1000 MG PO (08:51)
--- NOTE | 2023-06-14 09:41 | CRLHL7_ITS ---
For Patients: As a result of the Cures Act, medical imaging exams and procedure reports are released immediately into your electronic medical record. You may view this report before your referring provider. If you have questions, please contact your health care provider. INDICATION: WEAKNESS, COUGH INDICATION: Weakness, cough. TECHNIQUE: Chest 2 views. COMPARISON: 05/07/2023. FINDINGS: Cardiovascular and mediastinum: Heart size and vasculature are normal in caliber and appearance. Mediastinum is within normal limits. Lungs and pleural spaces: Lungs are clear. No sign of infiltrate or mass. No sign of pleural effusion. No pneumothorax. Bones and soft tissues: No significant findings. IMPRESSION: There is no acute airspace disease or significant change. Dictated by Ricardo Lama MD @ 06/14/2023 1:06:43 PM Dictated by: Ricardo Lama MD @ 06/14/2023 13:06:49 (Electronically Signed)
[2023-06-14 09:56] LABS: Troponin, Point-of-Care* 0.02 ng/ml (0.01-0.04)
[2023-06-14 10:05] LABS: INR 1.07 (0.91-1.10); Prothrombin Time 14.6 Seconds
[2023-06-14 10:06] LABS: Partial Thromboplastin Time* 28 Seconds (23-33)
[2023-06-14 10:40] LABS: PCR FLU A Negative PCR FLU A (Negative); PCR FLU B Negative PCR FLU B (Negative); PCR RSV Negative PCR RSV (Negative)
[2023-06-14 10:53] LABS: SARS PCR* Negative SARS-CoV-2 (Negative)
--- NOTE | 2023-06-14 12:15 | ED.NURSE ---
Pt back from MRI
[2023-06-14] MEDS: METOCLOPRAMIDE HCL 5 MG/ML INJ IVP (12:26)
--- NOTE | 2023-06-14 14:27 | ED.NURSE ---
Attempted to ambulate patient. Unsuccessful. Patient was able to stand up at edge of bed but then became dizzy, swaying side to side and had to sit back down in the bed. MD notified. No further orders.
[2023-06-14] MEDS: PROMETHAZINE 25 MG/ML INJ 12.5 MG IVP (15:12)
--- NOTE | 2023-06-14 15:33 | ED.NURSE ---
Pt's daughter states she has noticed increased confusion over the last half hour after this last medication that was administered. Provider is updated.
--- NOTE | 2023-06-14 18:04 | PM.IMHP1 ---
Hospitalist- H&P: HPI History of Present Illness Date Seen: 06/14/23 Chief complaint: nausea, abdominal pain, dizziness Narrative: Justin Mendez is a 78 year old male past medical history significant for hypertension, paroxysmal atrial fibrillation on chronic anticoagulation status post cardioversion 2020, mitral regurgitation, Lyme disease October 2022, chronic neck and back pain is admitted to the medical floor from the ED for unrelenting vertigo. Patient is seen with , Erin, at bedside. Reports waking in the middle the night to go to the bathroom as is usual for him, believing he sat up too quickly and became very dizzy with the room spinning. He did vomit. Reports otherwise feeling his normal self before bed last night. Reports cold symptoms with runny nose and mild cough approximately 2 weeks ago, mostly now resolved. Denies nasal congestion or ear fullness or pain. Denies headache. Denies recent fevers or chills. Denies chest pain or shortness of breath. Denies abdominal pain, diarrhea, constipation. No change in urination. 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 He has had significant knee pain and weakness causing buckling and falls. He was recently started on spironolactone and his thinks that the falls have increased since this time. He denies hitting his head during any of these falls. He is on anticoagulation for atrial fibrillation. No recent vaccinations. No recent travel, flying, water recreation. In the ED, patient had minimal response to Zofran, Ativan, Reglan, unable to safely sit or stand without recurrence of symptoms. Review of Systems Narrative: REVIEW OF SYSTEMS: Complete review of systems performed and negative unless otherwise stated in HPI or below. [facility] Medical History Nausea ?R11.0 - Nausea (ICD-10) Chronic neck and back pain ?M54.2 - Cervicalgia (ICD-10) ?M54.9 - Dorsalgia, unspecified (ICD-10) ?G89.29 - Other chronic pain (ICD-10) Neck Pain ?M54.2 - Cervicalgia (ICD-10) Lyme disease ?A69.20 - Lyme disease, unspecified (ICD-10) Sciatica ?M54.30 - Sciatica, unspecified side (ICD-10) Prediabetes ?R73.03 - Prediabetes (ICD-10) Ascending aorta dilation ?I77.810 - Thoracic aortic ectasia (ICD-10) Cardiomyopathy ?I42.9 - Cardiomyopathy, unspecified (ICD-10) Prostate enlargement ?N40.0 - Benign prostatic hyperplasia without lower urinary tract symptoms (ICD-10) Adrenal abnormality (09/21/21) ?E27.9 - Disorder of adrenal gland, unspecified (ICD-10) History of nephrolithiasis ?Z87.442 - Personal history of urinary calculi (ICD-10) PAF (paroxysmal atrial fibrillation) ?I48.0 - Paroxysmal atrial fibrillation (ICD-10) Mitral regurgitation ?I34.0 - Nonrheumatic mitral (valve) insufficiency (ICD-10) Memory loss, short term ?R41.3 - Other amnesia (ICD-10) History of elevated prostate specific antigen (PSA) ?Z87.898 - Personal history of other specified conditions (ICD-10) Hypertension ?I10 - Essential (primary) hypertension (ICD-10) Surgical History History of cardioversion ?Z92.89 - Personal history of other medical treatment (ICD-10) History of cataract surgery (2017) ?Z98.49 - Cataract extraction status, unspecified eye (ICD-10) Family History Father Coronary artery disease High cholesterol Mother Diabetes High cholesterol High blood pressure Social History Smoking Status: Never smoker Non-prescribed substance use: denies use Little interest or pleasure in doing things: not at all Feeling down, depressed, or hopeless: not at all Meds Home Medications and Allergies Home Medications Medication Instructions Recorded Confirmed Type amiodarone 200 mg tablet 200 mg PO QDAY 07/15/22 05/21/23 History apixaban 5 mg tablet (Eliquis) 5 mg PO BID 07/15/22 05/21/23 History metoprolol succinate 50 mg tab PO 07/15/22 05/21/23 History tablet,extended release 24 hr lisinopril 20 mg tablet 40 mg PO QDAY 01/03/23 05/21/23 History spironolactone 25 mg tablet 25 mg PO QDAY 06/09/23 History Allergies Allergy/AdvReac Type Severity Reaction Status Date / Time No Known Drug Allergies Allergy Verified 05/21/23 08:40 Exam Narrative: Exam Narrative: PHYSICAL EXAM General: Lying in bed on left side, very pleasant, conversant, NAD HEENT: Normocephalic, atraumatic, sclera white, EOMI, oral mucosa moist. Horizontal nystagmus present Cardiovascular: RRR, S1S2. No pitting edema Pulmonary: CTA bilaterally without rhonchi, rales, expiratory wheezes. No dyspnea Abdominal: Soft, nondistended, NTTP Neurological: Alert, answering questions appropriately, cranial nerves intact, no focal findings Extremities: No gross joint deformity or swelling. AROMI. Neurovascularly intact Skin: Warm, dry. Const: Vital Signs, click to edit/add: Vital Signs - 24 hr 06/14/23 06:49 06/14/23 06:56 06/14/23 07:00 Temperature 97.0 F L Pulse Rate 71 72 Pulse Rate [Pulse Oximeter] Pulse Rate [Right Pulse Oximeter] 72 Respiratory Rate 16 Blood Pressure Blood Pressure [Le ft Arm] Blood Pressure [Ri ght Upper Arm] 121/94 H Pulse Oximetry 100 100 [facility] 06/14/23 07:03 06/14/23 07:27 06/14/23 07:29 Temperature Pulse Rate 68 72 73 Pulse Rate [Pulse Oximeter] Pulse Rate [Right Pulse Oximeter] Respiratory Rate Blood Pressure 161/87 H 163/93 H Blood Pressure [Le ft Arm] Blood Pressure [Ri ght Upper Arm] Pulse Oximetry 100 100 100 [facility] 06/14/23 07:30 06/14/23 07:32 06/14/23 07:45 Temperature Pulse Rate 73 70 67 Pulse Rate [Pulse Oximeter] Pulse Rate [Right Pulse Oximeter] Respiratory Rate Blood Pressure 160/105 H Blood Pressure [Le ft Arm] Blood Pressure [Ri ght Upper Arm] Pulse Oximetry 100 99 98 [facility] 06/14/23 07:47 06/14/23 08:00 06/14/23 08:02 Temperature Pulse Rate 70 70 68 Pulse Rate [Pulse Oximeter] Pulse Rate [Right Pulse Oximeter] Respiratory Rate Blood Pressure 142/84 H 148/84 H Blood Pressure [Le ft Arm] Blood Pressure [Ri ght Upper Arm] Pulse Oximetry 95 92 94 [facility] 06/14/23 08:17 06/14/23 08:32 06/14/23 08:47 Temperature Pulse Rate Pulse Rate [Pulse Oximeter] Pulse Rate [Right Pulse Oximeter] Respiratory Rate Blood Pressure 166/94 H 157/95 H 143/80 H Blood Pressure [Le ft Arm] Blood Pressure [Ri ght Upper Arm] Pulse Oximetry Oxygen Delivery [facility] 06/14/23 09:02 06/14/23 09:08 06/14/23 09:17 Temperature Pulse Rate 71 Pulse Rate [Pulse Oximeter] Pulse Rate [Right Pulse Oximeter] Respiratory Rate Blood Pressure 137/90 H 146/82 H Blood Pressure [Le ft Arm] Blood Pressure [Ri ght Upper Arm] Pulse Oximetry 98 Oxygen Delivery [facility] 06/14/23 09:25 06/14/23 09:30 06/14/23 09:32 Temperature Pulse Rate 76 71 71 Pulse Rate [Pulse Oximeter] Pulse Rate [Right Pulse Oximeter] Respiratory Rate Blood Pressure 153/91 H Blood Pressure [Le ft Arm] Blood Pressure [Ri ght Upper Arm] Pulse Oximetry 99 95 96 Oxygen Delivery [facility] 06/14/23 09:45 06/14/23 09:47 06/14/23 09:48 Temperature Pulse Rate 71 74 71 Pulse Rate [Pulse Oximeter] Pulse Rate [Right Pulse Oximeter] Respiratory Rate Blood Pressure 162/99 H Blood Pressure [Le ft Arm] Blood Pressure [Ri ght Upper Arm] Pulse Oximetry 98 100 97 [facility] 06/14/23 10:00 06/14/23 12:18 06/14/23 12:30 Temperature Pulse Rate 79 77 72 Pulse Rate [Pulse Oximeter] Pulse Rate [Right Pulse Oximeter] Respiratory Rate Blood Pressure Blood Pressure [Le ft Arm] Blood Pressure [Ri ght Upper Arm] Pulse Oximetry 99 99 100 [facility] 06/14/23 12:32 06/14/23 12:45 06/14/23 12:47 Temperature Pulse Rate 71 75 72 Pulse Rate [Pulse Oximeter] Pulse Rate [Right Pulse Oximeter] Respiratory Rate Blood Pressure 158/89 H 153/96 H Blood Pressure [Le ft Arm] Blood Pressure [Ri ght Upper Arm] Pulse Oximetry 97 100 96 Oxygen Delivery [facility] 06/14/23 13:00 06/14/23 13:02 06/14/23 13:03 Temperature Pulse Rate 73 74 73 Pulse Rate [Pulse Oximeter] Pulse Rate [Right Pulse Oximeter] Respiratory Rate Blood Pressure 152/86 H Blood Pressure [Le ft Arm] Blood Pressure [Ri ght Upper Arm] Pulse Oximetry 99 100 100 Oxygen Delivery [facility] 06/14/23 13:15 06/14/23 13:17 06/14/23 13:30 Temperature Pulse Rate 77 75 73 Pulse Rate [Pulse Oximeter] Pulse Rate [Right Pulse Oximeter] Respiratory Rate Blood Pressure 137/81 Blood Pressure [Le ft Arm] Blood Pressure [Ri ght Upper Arm] Pulse Oximetry 99 99 97 [facility] 06/14/23 13:32 06/14/23 13:45 06/14/23 13:47 Temperature Pulse Rate 74 77 74 Pulse Rate [Pulse Oximeter] Pulse Rate [Right Pulse Oximeter] Respiratory Rate Blood Pressure 148/82 H 153/86 H Blood Pressure [Le ft Arm] Blood Pressure [Ri ght Upper Arm] Pulse Oximetry 96 100 97 [facility] 06/14/23 14:00 06/14/23 14:02 06/14/23 14:17 Temperature Pulse Rate 72 74 Pulse Rate [Pulse Oximeter] Pulse Rate [Right Pulse Oximeter] Respiratory Rate Blood Pressure 145/84 H 158/95 H Blood Pressure [Le ft Arm] Blood Pressure [Ri ght Upper Arm] Pulse Oximetry 97 96 [facility] 06/14/23 14:26 06/14/23 14:30 06/14/23 14:32 Temperature Pulse Rate 79 80 75 Pulse Rate [Pulse Oximeter] Pulse Rate [Right Pulse Oximeter] Respiratory Rate Blood Pressure 169/87 H Blood Pressure [Le ft Arm] Blood Pressure [Ri ght Upper Arm] Pulse Oximetry 99 98 98 Oxygen Delivery [facility] 06/14/23 14:45 06/14/23 14:47 06/14/23 15:00 Temperature Pulse Rate 73 76 75 Pulse Rate [Pulse Oximeter] Pulse Rate [Right Pulse Oximeter] Respiratory Rate Blood Pressure 160/86 H Blood Pressure [Le ft Arm] Blood Pressure [Ri ght Upper Arm] Pulse Oximetry 98 94 99 Oxygen Delivery [facility] 06/14/23 15:02 06/14/23 15:15 06/14/23 15:17 Temperature Pulse Rate 75 78 79 Pulse Rate [Pulse Oximeter] Pulse Rate [Right Pulse Oximeter] Respiratory Rate Blood Pressure 156/93 H 149/89 H Blood Pressure [Le ft Arm] Blood Pressure [Ri ght Upper Arm] Pulse Oximetry 94 98 97 Oxygen Delivery [facility] 06/14/23 16:15 Temperature Pulse Rate Pulse Rate [Pulse Oximeter] 96 Pulse Rate [Right Pulse Oximeter] Respiratory Rate 18 Blood Pressure Blood Pressure [Le ft Arm] 132/114 H Blood Pressure [Ri ght Upper Arm] Pulse Oximetry 99 Oxygen Delivery [facility] Room [facility] Hospitalist - H&P: Result Labs Labs: Short CBC 06/14/23 Range/Units 06:57 WBC 6.27 (4.50-11.00) K/uL Hgb 14.2 (13.5-17.5) gm/dL Hct 42.6 (37.0-53.0) % Plt Count 185 (140-440) K/uL BMP 06/14/23 06:57 Sodium 136 Potassium 4.6 Chloride 103 Carbon Dioxide 24 BUN 24 Creatinine 0.7 Glucose 196 H Calcium 8.7 Cardiac Enzymes 06/14/23 Range/Units 06:57 Troponin I < 0.01 L (0.01-0.04) ng/mL Urine 06/14/23 Range/Units 07:50 Urine Color Dark yellow (Yellow) Urine Appearance Clear (Clear) Urine pH 8.0 (5.0-8.5) Ur Specific [place] 1.020 (1.000-1.030) Urine Protein Negative (Negative) Urine Glucose (UA) 1+ A (Negative) Imaging CT scan - head: Attestation: I have reviewed the pertinent imaging results. Radiologist's impression: CT head without contrast. COMPARISON: None. FINDINGS: CSF spaces: Within normal limits for age. Brain parenchyma and extra-axial spaces: A 2 cm partially calcified right parasellar mass is seen for example on axial series 2, image 26. No mass seen elsewhere. No intracranial hemorrhage and no sign of acute ischemia. No mass effect or midline shift. There are moderate chronic microvascular changes. Skull base and calvarium: Trace effusion in the right mastoid air cells and middle ear. The visualized orbits are grossly unremarkable. No skull fractures. IMPRESSION: 1. No acute abnormality evident. 2. 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 This should be further evaluated with contrast-enhanced brain MRI. 3. Trace effusion in the right mastoid air cells and middle ear. 4. No other finding to explain vertigo. MR Brain: Attestation: I have reviewed the pertinent imaging results. Radiologist's impression: 3D [id number] MR angiogram of the [id number] with 3-dimensional MIP projections were submitted. Axial DWI/ADC sequences were also obtained through the brain. Comparison: No prior studies available for comparison at this institution. Findings: The visualized first and second order intracranial vessels are unremarkable. No occlusion/filling defect or acquired arterial stenosis identified. No aneurysm or vascular malformation seen. No abnormal restricted diffusion. Impression: 1. Unremarkable MRA of the head as far as visualized. 2. No evidence of acute/subacute ischemia. MRI - head: Attestation: I have reviewed the pertinent imaging results. Radiologist's impression: Findings: There is artifact from patient motion, degrading image quality. Mild prominence of the ventricles and cortical sulci, compatible with generalized cerebral volume loss. Patchy areas of FLAIR hyperintensity throughout the supratentorial white matter, typical of chronic microangiopathy. No acute/subacute ischemic, intracranial hemorrhage or abnormal extra-axial fluid collection. No midline shift, hydrocephalus, or herniation. There is a lobulated homogeneously enhancing extra-axial mass centered along the right anterior clinoid process and extending along the sphenoid wing. Oblique orthogonal dimensions in axial plane are estimated at 2.8 x 1.4 cm (series 23, image 74), and approximately 2.3 cm craniocaudal the coronal plane (series 24 image 117). Allowing for artifact from patient motion, suspect up to 270 degree encasement of the right supraclinoid ICA/terminus, without evidence of luminal narrowing. Also suspect encroachment upon the pre chiasmatic right optic nerve. No evidence suspicious regions of abnormal contrast enhancement within the sella. The optic chiasm and infundibulum are midline and within normal limits. Mild mucosal thickening throughout the maxillary sinuses and ethmoid air cells. No paranasal sinus air-fluid level. Nonspecific right mastoid effusion. Bilateral lens implants. Impression: 1. Lobulated homogeneously enhancing extra-axial mass centered along the right anterior clinoid process and sphenoid wing, most suggestive of meningioma. 2. 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 3. Unremarkable MR appearance of the sella/pituitary gland. No acute intracranial abnormality. 4. Mild generalized cerebral volume loss and moderate chronic microangiopathy changes. Chest x-ray: Attestation: I have reviewed the pertinent imaging results. Radiologist's impression: Chest 2 views. COMPARISON: 05/07/2023. FINDINGS: Cardiovascular and mediastinum: Heart size and vasculature are normal in caliber and appearance. Mediastinum is within normal limits. Lungs and pleural spaces: Lungs are clear. No sign of infiltrate or mass. No sign of pleural effusion. No pneumothorax. Bones and soft tissues: No significant findings. IMPRESSION: There is no acute airspace disease or significant change Assessment and Plan Assessment and plan (1) Vertigo: Problem comment: -first episode, with vomiting, no previous history. No evidence cerebellar stroke. Labs unremarkable. TSH ordered. CT shows mild mucosal thickening throughout the maxillary sinuses and ethmoid air cells. No paranasal sinus air-fluid level. -recent URI sxs, mostly resolved. Lyme disease was back in October 2022 -recently added spironolactone to medication regimen- will hold and follow up with PCP -in ED, minimal response to zofran, reglan, or ativan. Phenergan caused mild mental status change -trial meclizine, compazine, hydroxyzine -PT consult for eval and treatment -Teleneurology may have further suggestions in follow up tomorrow (for brain mass) Status: Acute (2) Suprasellar mass: Problem comment: -incidental finding as reported in CT/MR -ED provider discussed with [facility], reviewing films, thought not to be cause of current symptoms, unlikely to be a stroke -will need to reconnect with [facility] tomorrow for recommended follow up course Status: Acute (3) PAF (paroxysmal atrial fibrillation): Problem comment: -continue metoprolol -eliquis bid (discussed risks with recent falls) -telemetry Status: Chronic (4) Hypertension: Problem comment: -continue home medications. Hold spironolactone for dizziness Status: Chronic (5) Falls: Problem comment: -thought to be related to knee pain/weakness. Increased with start of spironolactone -hold spironolactone and discuss with PCP -also on anticoagulation. Has not hit head thus far. Will need to discuss with PCP/Cardiology if falls continue Status: Acute Plan CODE: Full as discussed with patient VTE PPX: Torsten holcomb Disposition: Observation
[2023-06-14 18:54] LABS: Thyroid Stimulating Hormone* 0.895 uIU/mL (0.270-4.20)
[2023-06-14] MEDS: MECLIZINE HCL 25 MG TABLET PO (18:59)
[2023-06-14] MEDS: PROCHLORPERAZINE 5 MG/ML VIAL IV (18:59)
[2023-06-14] MEDS: AMIODARONE 200 MG TABLET PO (19:26)
[2023-06-14] MEDS: lisinopriL 20 MG TABLET 40 MG PO (19:30)
[2023-06-14] MEDS: APIXABAN 5 MG TABLET PO (21:25)
[2023-06-14] MEDS: SODIUM CHLORIDE 0.9 % (FLUSH) 10 ML SYRINGE 5 ML IVF (21:25)
--- NOTE | 2023-06-14 22:16 | PC.NURSE ---
Shift [id number]- Patient arrives to unit at approximately 1550 via wheelchair with daughter. He answers most intake questions confidently and seemingly appropriately, though a couple answers trigger input from daughter. After, he was not oriented to place and seemed to be hallucinating (grabbing at things in the air) and disoriented. He was also very impulsive, initially, trying quickly to get out of bed. He is very unsteady in upright or standing positions. He mostly denies nausea throughout, is agreeable to eating. Ate about half of meal after meclizine and Compazine administration- see eMAR. He is also slightly less unsteady this evening, though unsteadiness is still significant. No facial droop, extremity strengths are equal, denies headache. Mentation also seems more clear this evening. He is somnolent between nursing cares. Gait belt, A/2 for pivot to BSC or standing at bedside for urinal use.
[2023-06-15 03:00] VITALS: BP 152/98; PULSE 74; RESP 18; TEMP 36.9; O2SAT 97
[2023-06-15 06:00] VITALS: BP 119/81; BP 122/81; BP 126/85; PULSE 75; PULSE 76
[2023-06-15 06:41] LABS: Hematocrit 41.5 % (37.0-53.0); Hemoglobin* 13.4 gm/dL (13.5-17.5); Mean Corpuscular HGB Conc 32 gm/dL (32-36); Mean Corpuscular Hemoglobin 30 pg (26-34); Mean Corpuscular Volume 94 fL (80-100); Platelet Count* 187 K/uL (140-440); Red Blood Count 4.42 m/uL (4.30-5.90); White Blood Count* 7.99 K/uL (4.50-11.00)
--- NOTE | 2023-06-15 06:55 | PC.NURSE ---
Shift note: Pt has been sleeping very well, only asked to use the BSC 1x. Appears steady on standing but has problem with movement. Orthostatic Bp this morning was done and pt complained of mild dizziness when standing. No pain, neurological deficit observed. Answered questions appropriately. Vitally stable.
[2023-06-15 07:02] LABS: Slide Review Reflex No
[2023-06-15 07:18] LABS: Chloride* 108 mmol/L (96-114); Potassium* 3.8 mmol/L (3.6-5.1); Sodium* 139 mmol/L (135-149)
[2023-06-15 07:20] LABS: Creatinine* 0.9 mg/dL (0.5-1.5); Estimated Glomerular Filt Rate 87 ml/min
[2023-06-15 07:21] LABS: Anion Gap 4 mEq/L (7-15); Blood Urea Nitrogen* 21 mg/dL (7-30); Calcium* 8.6 mg/dL (8.4-10.6); Carbon Dioxide* 27 mmol/L (20-32); Glucose* 115 mg/dL (60-115)
[2023-06-15 07:46] VITALS: PULSE 65
[2023-06-15 08:47] VITALS: BP 140/89; PULSE 81; RESP 18; TEMP 37.4; O2SAT 95
[2023-06-15] MEDS: METOPROLOL SUCCINATE (XL) 50 MG TAB PO (09:26)
[2023-06-15] MEDS: AMIODARONE 200 MG TABLET PO (09:26)
[2023-06-15] MEDS: APIXABAN 5 MG TABLET PO (09:26)
[2023-06-15] MEDS: lisinopriL 20 MG TABLET 40 MG PO (09:26)
[2023-06-15] MEDS: SODIUM CHLORIDE 0.9 % (FLUSH) 10 ML SYRINGE 5 ML IVF (09:27)
--- NOTE | 2023-06-15 16:00 | PM.DS1 ---
DS: Providers Provider Time Seen by Provider: 09:40 Date Seen: 06/15/23 Date of admission: 06/14/23 18:07 Primary care physician: Vitaliy Solo MD Admitting Clinician: Danna Ramirez MD Consults: 06/14/23 17:48 Consult to Physical Therapy [CONS] Routine Comment: Reason(s) for PT Consult:: Evaluate and Treat Any Restrictions?:: No Restrictions Comment: Vertigo - eval and treat please 06/15/23 09:45 Consult to Physical Therapy [CONS] Routine Comment: Reason(s) for PT Consult:: Evaluate and Treat Any Restrictions?:: No Restrictions Attending Physician on discharge: Leonie Pool MD Date of Discharge: 06/15/23 DS: Diagnosis Discharge Diagnosis (1) Vertigo: Status: Acute Problem details: -first episode, with vomiting, no previous history. No evidence cerebellar stroke. Labs unremarkable. TSH ordered. CT shows mild mucosal thickening throughout the maxillary sinuses and ethmoid air cells. No paranasal sinus air-fluid level. -recent URI sxs, mostly resolved. Lyme disease was back in October 2022 -recently added spironolactone to medication regimen- will hold and follow up with PCP -in ED, minimal response to zofran, reglan, or ativan. Phenergan caused mild mental status change -Meclizine, compazine, hydroxyzine worked well overnight -PT evaluated -06/[address] Chester (neuro) and Dr. Roe (neurosurgery) today. 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 Will need outpatient f/u with neurosurgery. (2) Hypertension: Status: Chronic Problem details: -continue home medications. Hold spironolactone for dizziness, f/u with PCP (3) Falls: Status: Acute Problem details: -thought to be related to knee pain/weakness. Increased with start of spironolactone -hold spironolactone and discuss with PCP -also on anticoagulation. Has not hit head thus far. Will need to discuss with PCP/Cardiology if falls continue (4) Suprasellar mass: Status: Acute Problem details: -incidental finding as reported in CT/MR -ED provider discussed with [facility], reviewing films, thought not to be cause of current symptoms, unlikely to be a stroke -f/u with neurosurgery as outpatient. (5) PAF (paroxysmal atrial fibrillation): Status: Chronic Problem details: -continue metoprolol -eliquis bid (discussed risks with recent falls), patient will continue this medication and talk with PCP as he gets further evaluation of right knee weakness, which maybe causing falls. (6) Weakness: Status: Acute Problem details: R knee weakness, giving out. Use walker. Outpatient w/u through PCP - may benefit from lumbar imaging, knee imaging, ortho referral? Continue outpatient PT. DS: Summary Hospital Course Hospital Course: This is a 78-year-old male with a history of hypertension, paroxysmal atrial fibrillation for which he has on chronic anticoagulation with Eliquis, mitral regurgitation, history of Lyme disease in October 2022 who presented with vertigo. He did not have any auditory symptoms. He did feel the room was spinning around and had 1 emesis. He reports a URI with a runny nose and mild cough approximately 2 weeks prior to this. 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 He was started on spironolactone around that time and his thinks this may have contributed to this. In the ER he had a workup including head CT and brain MRI. No stroke was found. 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 The neurologist recommended talking with Neurosurgery and thought that the symptoms the patient is having are not related to this mass. He was given Zofran, Ativan and Reglan in the ER and admitted for further treatment. Overnight he did well and improved on meclizine, Compazine, and hydroxyzine. He is much better today. He was evaluated by PT and does have some right knee weakness. He is doing well with a walker. I spoke with him and his after talking with a neurosurgeon. I gave him the recommendation that he follow up with a neurosurgeon as an outpatient for the suprasellar mass. They demonstrated understanding. Discharged home in stable condition today. Will have him follow-up with his PCP. Time Spent with Patient Time attestation: Total time spent providing and/or coordinating discharge services: Exam Narrative: Exam Narrative: General: No acute distress. Awake, alert, oriented x3. No pallor. No jaundice. No nystagmus. Moves all extremities equally. Oropharynx: Clear. Mucous membranes moist. Cardiovascular: Regular rate and rhythm. No murmurs, gallops, or rubs. Respiratory: Clear to auscultation bilaterally. No wheezes or crackles. Const: Vital Signs, click to edit/add: Vital Signs - 24 hr 06/14/23 16:15 06/14/23 18:38 06/14/23 18:48 Temperature Pulse Rate 96 Pulse Rate [Pulse Oximeter] 96 Pulse Rate [orthos tatic lying Right Pulse Oximeter] Pulse Rate [orthos tatic sitting Righ t Pulse Oximeter] Pulse Rate [orthos tatic standing Rig ht Pulse Oximeter] Respiratory Rate 18 Blood Pressure [Le ft Arm] 132/114 H Blood Pressure [or thostatic lying Le ft Arm] Blood Pressure [or thostatic sitting Left Arm] Blood Pressure [or thostatic standing Left Arm] Pulse Oximetry 99 99 Oxygen Delivery Me thod Room Air Room Air 06/14/23 18:49 06/14/23 23:00 06/14/23 23:00 Temperature 98.5 F 98.7 F Pulse Rate Pulse Rate [Pulse Oximeter] 73 71 Pulse Rate [orthos tatic lying Right Pulse Oximeter] Pulse Rate [orthos tatic sitting Righ t Pulse Oximeter] Pulse Rate [orthos tatic standing Rig ht Pulse Oximeter] Respiratory Rate 18 18 Blood Pressure [Le ft Arm] 156/80 H 126/76 Blood Pressure [or thostatic lying Le ft Arm] Blood Pressure [or thostatic sitting Left Arm] Blood Pressure [or thostatic standing Left Arm] Pulse Oximetry 97 Oxygen Delivery Me thod Room Air 06/15/23 03:00 06/15/23 06:00 06/15/23 07:46 Temperature 98.5 F Pulse Rate 65 Pulse Rate [Pulse Oximeter] 74 Pulse Rate [orthos tatic lying Right Pulse Oximeter] 76 Pulse Rate [orthos tatic sitting Righ t Pulse Oximeter] 76 Pulse Rate [orthos tatic standing Rig ht Pulse Oximeter] 75 Respiratory Rate 18 Blood Pressure [Le ft Arm] 152/98 H Blood Pressure [or thostatic lying Le ft Arm] 122/81 Blood Pressure [or thostatic sitting Left Arm] 126/85 Blood Pressure [or thostatic standing Left Arm] 119/81 Pulse Oximetry 97 Oxygen Delivery Me thod Room Air 06/15/23 08:47 Temperature 99.4 F Pulse Rate Pulse Rate [Pulse Oximeter] 81 Pulse Rate [orthos tatic lying Right Pulse Oximeter] Pulse Rate [orthos tatic sitting Righ t Pulse Oximeter] Pulse Rate [orthos tatic standing Rig ht Pulse Oximeter] Respiratory Rate 18 Blood Pressure [Le ft Arm] 140/89 H Blood Pressure [or thostatic lying Le ft Arm] Blood Pressure [or thostatic sitting Left Arm] Blood Pressure [or thostatic standing Left Arm] Pulse Oximetry 95 Oxygen Delivery Me thod Room Air DS: Data Data Completed and Pending Completed studies during hospitalization: Ordering Physician: Leonel Gonzalez M.D. Date of Service: 06/14/23 Procedure(s): MR head/brain wo/w con Accession Number(s): [id number] cc: Vitaliy Solo M.D.; Leonel Gonzalez M.D.~ For Patients: As a result of the Cures Act, medical imaging exams and procedure reports are released immediately into your electronic medical record. You may view this report before your referring provider. If you have questions, please contact your health care provider. Indication: Left-sided temporal mass, right leg weakness Technique: High-resolution sagittal and coronal, pre and postcontrast T1 weighted sequences through the pituitary gland, axial diffusion, T2 FLAIR sequences are provided. A total of 15 mL Dotarem IV contrast was administered. Comparison: Earlier same day CT head and MRA head Findings: There is artifact from patient motion, degrading image quality. Mild prominence of the ventricles and cortical sulci, compatible with generalized cerebral volume loss. Patchy areas of FLAIR hyperintensity throughout the supratentorial white matter, typical of chronic microangiopathy. No acute/subacute ischemic, intracranial hemorrhage or abnormal extra-axial fluid collection. No midline shift, hydrocephalus, or herniation. There is a lobulated homogeneously enhancing extra-axial mass centered along the right anterior clinoid process and extending along the sphenoid wing. Oblique orthogonal dimensions in axial plane are estimated at 2.8 x 1.4 cm (series 23, image 74), and approximately 2.3 cm craniocaudal the coronal plane (series 24 image 117). Allowing for artifact from patient motion, suspect up to 270 degree encasement of the right supraclinoid ICA/terminus, without evidence of luminal narrowing. Also suspect encroachment upon the pre chiasmatic right optic nerve. No evidence suspicious regions of abnormal contrast enhancement within the sella. The optic chiasm and infundibulum are midline and within normal limits. Mild mucosal thickening throughout the maxillary sinuses and ethmoid air cells. No paranasal sinus air-fluid level. Nonspecific right mastoid effusion. Bilateral lens implants. Impression: 1. Lobulated homogeneously enhancing extra-axial mass centered along the right anterior clinoid process and sphenoid wing, most suggestive of meningioma. 2. 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 3. Unremarkable MR appearance of the sella/pituitary gland. No acute intracranial abnormality. 4. Mild generalized cerebral volume loss and moderate chronic microangiopathy changes. Dictated by Jaylin Wooten MD @ 06/14/2023 1:47:42 PM (Electronically Signed) Ordering Physician: Leonel Gonzalez M.D. Date of Service: 06/14/23 Procedure(s): MR angio head wo con Accession Number(s): [id number] cc: Vitaliy Solo M.D.; Leonel Gonzalez M.D.~ For Patients: As a result of the 21st Century Cures Act, medical imaging exams and procedure reports are released immediately into your electronic medical record. You may view this report before your referring provider. If you have questions, please contact your health care provider. Indication: Left-sided temporal mass, right leg weakness Technique: 3D Fshh-nq-aredvy MR angiogram of the jsalsb-ji-Rrztad with 3-dimensional MIP projections were submitted. Axial DWI/ADC sequences were also obtained through the brain. Comparison: No prior studies available for comparison at this institution. Findings: The visualized first and second order intracranial vessels are unremarkable. No occlusion/filling defect or acquired arterial stenosis identified. No aneurysm or vascular malformation seen. No abnormal restricted diffusion. Impression: 1. Unremarkable MRA of the head as far as visualized. 2. No evidence of acute/subacute ischemia. Dictated by Jaylin Wooten MD @ 06/14/2023 11:52:02 AM (Electronically Signed) Ordering Physician: Vitaliy Solo M.D. Date of Service: 06/14/23 Procedure(s): CT head/brain wo con Accession Number(s): [id number] cc: Vitaliy Solo M.D.~ For Patients: As a result of the Cures Act, medical imaging exams and procedure reports are released immediately into your electronic medical record. You may view this report before your referring provider. If you have questions, please contact your health care provider. INDICATION: Vertigo. TECHNIQUE: CT head without contrast. COMPARISON: None. FINDINGS: CSF spaces: Within normal limits for age. Brain parenchyma and extra-axial spaces: A 2 cm partially calcified right parasellar mass is seen for example on axial series 2, image 26. No mass seen elsewhere. No intracranial hemorrhage and no sign of acute ischemia. No mass effect or midline shift. There are moderate chronic microvascular changes. Skull base and calvarium: Trace effusion in the right mastoid air cells and middle ear. The visualized orbits are grossly unremarkable. No skull fractures. IMPRESSION: 1. No acute abnormality evident. 2. 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 This should be further evaluated with contrast-enhanced brain MRI. 3. Trace effusion in the right mastoid air cells and middle ear. 4. No other finding to explain vertigo. Please note that all CT scans at this facility use dose modulation, iterative reconstruction, and/or weight-based dosing when appropriate to reduce radiation dose to as low as reasonably achievable. Dictated by Drew Corrales MD @ 06/14/2023 7:29:25 AM (Electronically Signed) Ordering Physician: Leonel Gonzalez M.D. Date of Service: 06/14/23 Procedure(s): XR chest 2V Accession Number(s): [id number] cc: Vitaliy Solo M.D.; Leonel Gonzalez M.D.~ For Patients: As a result of the Cures Act, medical imaging exams and procedure reports are released immediately into your electronic medical record. You may view this report before your referring provider. If you have questions, please contact your health care provider. INDICATION: WEAKNESS, COUGH INDICATION: Weakness, cough. TECHNIQUE: Chest 2 views. COMPARISON: 05/07/2023. FINDINGS: Cardiovascular and mediastinum: Heart size and vasculature are normal in caliber and appearance. Mediastinum is within normal limits. Lungs and pleural spaces: Lungs are clear. No sign of infiltrate or mass. No sign of pleural effusion. No pneumothorax. Bones and soft tissues: No significant findings. IMPRESSION: There is no acute airspace disease or significant change. Dictated by Ricardo Lama MD @ 06/14/2023 1:06:43 PM Dictated by: Ricardo Lama MD @ 06/14/2023 13:06:49 (Electronically Signed) Labs on day of discharge: Labs from last 24 hours 06/15/23 06/14/23 06/14/23 06:26 17:55 06:57 WBC 7.99 RBC 4.42 Hgb 13.4 L Hct 41.5 MCV 94 MCH 30 MCHC 32 Plt Count 187 Sodium 139 Potassium 3.8 Chloride 108 Carbon Dioxide 27 Anion Gap 4 L BUN 21 Creatinine 0.9 Estimated GFR 87 Glucose 115 Calcium 8.6 TSH 0.895 Lab Acknowledgement Test Added Discharge Plan Discharge Disposition: Home, Self-Care Date of Admission: 06/14/23 18:07 Attending Provider on Discharge: Leonie Pool Primary Care Provider: Vitaliy Solo Condition: Improved Anticipated Discharge Date/Time: 06/15/23 16:39 Discharge Medications: New meclizine 25 mg Tablet 12.5 - 25 mg PO TID PRN (Reason: dizziness) Qty: 10 0RF Continued amiodarone 200 mg tablet 200 mg PO QDAY Eliquis 5 mg tablet 5 mg PO BID Patient Comments: TAKE 1 TABLET (5 MG) BY MOUTH 2 TIMES DAILY metoprolol succinate 50 mg tablet extended release 24 hr 50 mg PO DAILY lisinopril 40 mg tablet 40 mg PO DAILY Chewable Vitamin C 3 tab PO DAILY Rx Instructions: 3 CHEWABLE VIT C TABLETS DAILY, DOSE UNKNOW CALCIUM+D CHEW 2 tab PO DAILY Rx Instructions: CALCIUM + D - 2 CHEW TABS DAILY, DOSE UNKNOWN Discontinued spironolactone 25 mg tablet 25 mg PO QDAY Discharge Orders: Discharge Order (Routine); Ordered 06/15/23 Ordered By: Leonie Pool Patient Education: Meclizine (By mouth), Vertigo (DC) Additional Instructions: Neurosurgery at [facility] in 2 weeks. Activity Level: No Restrictions Discharge Diet: Regular Follow Up Appointments: Vitaliy Solo MD [Primary Care Provider] - (call for a follow up appointment in 3-5 days) Forms: [facility] Info Instructions
== END 2023-06-15 17:15 | disposition home or self-care (01) ==
LOC: ED 15:29 → MEDSURG 15:52
PROVIDERS: Physician Assistant; Admitting Provider Family Medicine; Emergency Provider Family Medicine; PCP Internal Medicine; Visit Provider Family Medicine
DX: R42 Dizziness and giddiness (principal); R53.1 Weakness; G93.89 Other specified disorders of brain; M25.561 Pain in right knee; I48.0 Paroxysmal atrial fibrillation; I42.9 Cardiomyopathy, unspecified; M54.2 Cervicalgia; M54.9 Dorsalgia, unspecified; G89.29 Other chronic pain; I34.0 Nonrheumatic mitral (valve) insufficiency; H55.00 Unspecified nystagmus; I10 Essential (primary) hypertension; W19.XXXA Unspecified fall, initial encounter; R11.0 Nausea; R11.10 Vomiting, unspecified; R29.6 Repeated falls; R22.0 Localized swelling, mass and lump, head; N40.0 Benign prostatic hyperplasia without lower urinary tract symptoms; Z79.01 Long term (current) use of anticoagulants; Z98.49 Cataract extraction status, unspecified eye; Z86.19 Personal history of other infectious and parasitic diseases; Z87.440 Personal history of urinary (tract) infections; Z87.442 Personal history of urinary calculi; Z87.898 Personal history of other specified conditions; Z92.89 Personal history of other medical treatment
CPT/HCPCS: 36415; 70450; 70544; 70553; 71046; 80048; 80306; 81003; 84443; 84484; 85025; 85027; 85610; 85730; 87631; 93005; 96361; 96374; 96375; 97116; 97161; 99284; 99285; G0378; A9270; A9575; J0780; J2060; J2550; J2765; J7030

== ENCOUNTER 2023-07-30 13:26 | Outpatient (CLI) | payer MEDICARE, BC, SELFPAY ==
--- OUTSIDE RECORDS SUMMARY | 2023-07-30 13:36 | XMS_ITS | Referral Summary ---
Author Name Unknown Organization [facility] Address [address] [place] [address] Care Team Providers Care Spreader Operator Name Role Phone Franny Shrestha PA-C Unavailable Vitaliy Solo MD Primary Care Provider Bryon Bell MD Unavailable [phone] Anyi Broderick MD Unavailable Franny Shrestha PA-C Unavailable Amanda Ibrahim MD Unavailable [phone] Allergies No known active allergies Medications Medication Sig Dispensed Refills Start Date End Date Status vitamin D3 (CHOLECALCIFEROL) 50 mcg (2000 units) tablet Take 1 tablet (50 mcg) by mouth daily 100 tablet 0 03/21/2021 Active vitamin C (ASCORBIC ACID) 1000 MG TABS Take 1 tablet (1,000 mg) by mouth daily 100 tablet 0 03/21/2021 Active zinc gluconate 50 MG tablet Take 1 tablet (50 mg) by mouth daily 100 tablet 0 03/21/2021 Active amiodarone (PACERONE) 200 MG tabletIndications:Atr ial fibrillation, unspecified type (H) Take 1 tablet (200 mg) by mouth daily 90 tablet 3 07/19/2022 Active apixaban ANTICOAGULANT (ELIQUIS) 5 MG tabletIndications:Atr ial fibrillation, unspecified type (H) Take 1 tablet (5 mg) by mouth 2 times daily 180 tablet 3 07/19/2022 Active metoprolol succinate ER (TOPROL XL) 50 MG 24 hr tabletIndications:Atr ial fibrillation, unspecified type (H) Take 1 tablet (50 mg) by mouth daily 90 tablet 3 07/19/2022 Active lisinopril (ZESTRIL) 40 MG tabletIndications:Sec ondary cardiomyopathy (H) Take 1 tablet (40 mg) by mouth daily 90 tablet 3 07/19/2022 Active mupirocin (BACTROBAN) 2 % external ointmentIndications:P ostoperative state Apply topically 4 times daily 22 g 1 10/10/2022 Active sodium chloride (OCEAN) 0.65 % nasal sprayIndications:Nasa l obstruction Tyrone 2 sprays in nostril 4 times daily as needed for congestion 60 mL 4 10/17/2022 Active Active Problems Problem Noted Date Diagnosed Date Paroxysmal atrial fibrillation 12/24/2021 Benign essential hypertension 12/24/2021 Mitral regurgitation 12/24/2021 Memory loss, short term 11/04/2020 Elevated prostate specific antigen (PSA) 019 Resolved Problems Problem Noted Date Diagnosed Date Resolved Date Acute pain of right shoulder 03/26/2021 05/14/2021 Immunizations Name Administration Dates Next Due Influenza (High Dose) 3 [place] nt vaccine 05/16/2016,06/06/2015,2014,2012,04/27/2012,05/02/2011 Influenza (intradermal) 05/12/2017,04/05/2010, Pneumo Conj 13-V (2010&after) 08/21/2018, 015 Pneumococcal 23 valent 05/02/2011 TD,PF 7+ (Tenivac) 11/17/2001 TDAP Vaccine (Adacel) 2014 Zoster vaccine, live 04/27/2012 Social History Tobacco Use Types Packs/Day Years Used Date Smoking Tobacco: Never Smokeless Tobacco: Never Alcohol Use Standard Drinks/Week Comments Yes 0 (1 standard drink = 0.6 oz pur e alcohol) occ PHQ-2 Answer Date Recorded PHQ-2 Score 0 12/24/2021 Adolescent Education Answer Date Record ed Getting School Help Needed Not on file 04/04 Sex and Gender Information Value Date Recorded Sex Assigned at Male 03/03/2021 2:33 PM CDT Gender Identity Male 03/03/2021 2:33 PM CDT Sexual Orientation Straight 03/03/2021 2: 33 PM CDT Last Filed Vital Signs Vital Sign Reading Time Taken Comments Blood Pressure 160/85 11/19/2022 2:07 PM CDT Pulse 63 11/19/2022 2:07 PM CDT Temperature 36 ??C (96.8 ??F) 09/06/2021 10:26 AM PHP WEBSITE DEVELOPER Respiratory Rate 14 09/06/2021 10:26 AM PHP WEBSITE DEVELOPER Oxygen Saturation 98% 07/19/2022 2:28 PM PHP WEBSITE DEVELOPER Inhaled Oxygen Concentration - - Weight 88.9 kg (196 lb) 11/19/2022 2:07 PM CDT Height 182.9 cm (6') 11/19/2022 2:07 PM CDT Body Mass Index 26.58 11/19/2022 2:07 PM CDT Plan of Treatment Not on file Care Teams Spreader Operator Relationship Specialty Start Date End Date Vitaliy Solo MD [facility] [address] [place] [address] PCP - General Emergency Medicine 07/19/22 Franny Shrestha PA-C [address] [place] [address] Physician Shaker Repairer Urology 10/01/21 [place] [address] [place] [address] Family Medicine 08/27/22 [place] [address] [place] [address] Assigned PCP 08/31/22 Franny Shrestha PA-C [address] [place] [address] Assigned Surgical Provider 12/21/22 Amanda Ibrahim MD [address] [facility] [address] [place] [id number] Assigned Heart and Vascular Provider 01/18/23
--- OUTSIDE RECORDS SUMMARY | 2023-07-30 13:36 | XMS_ITS | Encounter Summary ---
Author Name Unknown Organization [facility] Address [address] [place] [address] Care Team Providers Care Leather Production Worker Name Role Phone Laureen Dye APRN ENGINE INSPECTOR Unavailable [phone] Franny Shrestha PA-C Unavailable [phone] Franny Shrestha PA-C Unavailable [phone] Vitaliy Solo MD Primary Care Provider Bryon eBll MD Unavailable [phone] Anyi Broderick MD Unavailable Encounter Details Date Type Department Care Team (Latest Contact Info) Description 11/14/2022 Travel Social History Tobacco Use Types Packs/Day Years Used Date Smoking Tobacco: Never Smokeless Tobacco: Never Alcohol Use Standard Drinks/Week Comments Yes 0 (1 standard drink = 0.6 oz pur e alcohol) occ PHQ-2 Answer Date Recorded PHQ-2 Score 0 12/24/2021 Sex and Gender Information Value Date Recorded Sex Assigned at Male 03/03/2021 2:33 PM CDT Gender Identity Male 03/03/2021 2:33 PM CDT Sexual Orientation Straight 03/03/2021 2: 33 PM CDT COVID-19 Exposure Response Date Recorded In the last 10 days, have yo u been in contact with someone who was confirmed or suspected to have Coronavirus/COVID-19? No / Unsure 11/14/2022 10:31 AM CDT documented as of this encounter Plan of Treatment Not on file documented as of this encounter Visit Diagnoses Not on filedocumented in this encounter Care Teams Leather Production Worker Relationship Specialty Start Date End Date Vitaliy Solo MD [facility] [address] [place] [address] PCP - General Emergency Medicine 07/19/22 Laureen Dye, CLAMP CARRIER OPERATOR ENGINE INSPECTOR [address] [place] [address] Assigned Heart and Vascular Provider 05/27/21 01/17/23 Franny Shrestha PA-C [address] [place] [address] Physician Office Lead Urology 10/01/21 Franny Shrestha PA-C [address] [place] [address] Assigned Surgical Provider 12/29/21 11/22/22 [place] [address] [place] [address] Family Medicine 08/27/22 [place] [address] [place] [address] Assigned PCP 08/31/22 documented as of this encounter
--- OUTSIDE RECORDS SUMMARY | 2023-07-30 13:36 | XMS_ITS | Encounter Summary ---
Author Name Unknown Organization [facility] Address [address] [place] [address]. [place] [address] Care Team Providers Care Tamale Machine Feeder Name Role Phone Laureen Dye APRN INFORMATION ARCHITECT Unavailable [phone] Franny Shrestha PA-C Unavailable Franny Shrestha PA-C Unavailable Vitaliy Solo MD Primary Care Provider Bryon Bell MD Unavailable [phone] Anyi Broderick MD Unavailable Encounter Details Date Type Department Care Team (Late st Contact Info) Description 11/06/2022 Orders Only [facility] Nose [facility] Th[facility] [address] [facility] [address] 4th [place] [address] Aimee Mascorro MD [address], [address] [place] [address] Postoperative state (Primary Dx) Social History Tobacco Use Types Packs/Day Years [...] suspected to have Coronavirus/COVID-19? No / Unsure 10/17/2022 1:08 PM CDT documented as of this encounter Plan of Treatment Not on file documented as of this encounter Visit Diagnoses Diagnosis Postoperative state- Primary Other postprocedural status documented in this encounter Care Teams Tamale Machine Feeder Relationship Specialty Start Date End Date Vitaliy Solo MD [facility] [address] [place] [address] PCP - General Emergency Medicine 07/19/22 Laureen Dye, GUS INFORMATION ARCHITECT [address] [place] [address] Assigned Heart and Vascular Provider 05/27/21 01/17/23 Franny Shrestha PA-C [address] [place] [address] Physician Tray Drier Operator Urology 10/01/21 Franny Shrestha PA-C [address] [place] [address] Assigned Surgical Provider 12/29/21 11/22/22 [place] [address] [place] [address] Family Medicine 08/27/22 [place] [address] [place] [address] Assigned PCP 08/31/22 documented as of this encounter
--- OUTSIDE RECORDS SUMMARY | 2023-07-30 13:36 | XMS_ITS | Encounter Summary ---
Author Name Unknown Organization [place] Address [address] [place] [address] Care Team Providers Care Receptionist/Telephone Operator Name Role Phone Laureen Dye APRN [employer] Unavailable [phone] Franny Shrestha PA-C Unavailable [phone] Franny Shrestha PA-C Unavailable [phone] Vitaliy Solo MD Primary Care Provider Bryon Bell MD Unavailable [phone] Anyi Broderick MD Unavailable Encounter Details Date Type Department Care Team (Latest Contact Info) Description 11/13/2022 Travel Social History Tobacco Use Types Packs/Day [...] suspected to have Coronavirus/COVID-19? No / Unsure 11/13/2022 10:14 AM CDT documented as of this encounter Plan of Treatment Not on file documented as of this encounter Visit Diagnoses Not on filedocumented in this encounter Care Teams Receptionist/Telephone Operator Relationship Specialty Start Date End Date Vitaliy Solo MD [facility] [address] [place] [address] PCP - General Emergency Medicine 07/19/22 Laureen Dye, MEDICAL LAB TECHNOLOGIST [employer] [address] [place] [address] Assigned Heart and Vascular Provider 05/27/21 01/17/23 Franny Shrestha PA-C [address] [place] [address] Physician Funnel Coater Urology 10/01/21 Franny Shrestha PA-C [address] [place] [address] Assigned Surgical Provider 12/29/21 11/22/22 [place] [address] [place] [address] Family Medicine 08/27/22 [place] [address] [place] [address] Assigned PCP 08/31/22 documented as of this encounter
--- OUTSIDE RECORDS SUMMARY | 2023-07-30 13:36 | XMS_ITS | Encounter Summary ---
Author Name Unknown Organization [place] Address [facility] [place] [address] Care Team Providers Care Medical Office Administrator Name Role Phone Laureen Dye APRN SERVICES ADVISOR Unavailable [phone] Franny Shrestha PA-C Unavailable [phone] Franny Shrestha PA-C Unavailable Vitaliy Solo MD Primary Care Provider Bryon Bell MD Unavailable [phone] Anyi Broderick MD Unavailable Reason for Referral * Diagnostic Imaging CT Scan (Routine) - Authorized Specialty Diagnoses / Procedures Referred By Margarita t Referred To Contact Radiology. Diagnoses Microscopic hematuria Lesion of adrenal gland (H24) Procedures CT Abdomen Pelvis w/o & w Contrast [[id number]] Franny Shrestha PA-C [address] [address] Referral ID Status Reason Start Date Expiration Date V isits Requested Visits Authorized [id number] Authorized 11/19/2022 11/19/2023 1 1 Reason for Visit * Reason Comments Microscopic hematuria Encounter Details Date Type Department Care Team ([facility] st Contact Info) Description 11/19/2022 2:00 PM CDT Office Visit [facility] [address] [place] [address] Franny Shrestha PA-C [address] [facility] [address] [place] [address] Microscopic hematuria (Primary Dx); Nocturia; Lesion of adrenal gland (H) Social History Tobacco Use Types Packs/Day Years [...] suspected to have Coronavirus/COVID-19? No / Unsure 11/19/2022 1:53 PM CDT documented as of this encounter Last Filed Vital Signs Vital Sign Reading Time Taken Comments Blood Pressure 160/85 11/19/2022 2:07 PM CDT Pulse 63 11/19/2022 2:07 PM CDT Temperature - - Respiratory Rate - - Oxygen Saturation - - Inhaled Oxygen Concentration - - Weight 88.9 kg (196 lb) 11/19/2022 2:07 PM CDT Height 182.9 cm (6') 11/19/2022 2:07 PM CDT Body Mass Index 26.58 11/19/2022 2:07 PM CDT documented in this encounter Patient Instructions * Patient Instructions* Franny Shrestha PA-C - 11/19/2022 2:00 PM CDT Would recommend cystoscopy to complete microscopic blood in the urine evaluation. CT adrenal to evaluate the adrenal lesion. Continue to restrict fluid prior to bedtime (3-4 hours) Nighttime urination of 2 times is normal atyour age. Will monitor urinary symptoms. If they worsen, would consider trial of Flomax 0.4 mg once daily. Follow up in 1 year with UA, post void residual, and symptom assessment. Contact us in the interim with questions, concerns, or changes in symptomatology. [phone] documented in this encounter Progress Notes * Franny Shrestha PA-C - 11/19/2022 2:00 PM CDT Subjective REQUESTING PROVIDER No ref. provider found REASON FOR CONSULT Microscopic hematuria and nocturia HISTORY OF PRESENT ILLNESS Mr. Mendez is a 77 year old male seen today in the urology clinic in consultation for evaluationof microscopic hematuria. This was first detected in September 2021. Patient denies any gross hematuria, dysuria, or incomplete emptying. He does endorse occasional urge incontinence, urgency, frequency, and nocturia 2-3 times. He stops drinking fluids at approximately 7 PM and goes to bed at 9 PM. He denies any snoring or startling himself awake. He has been told that he talks in his sleep. Postvoid residual today is 54 mL. He does feel like he empties his bladder better when he stands. He does have trouble urinating when he sits. He would categorize his streamis medium to weak. Patient has never smoked. He denies any significant chemical exposure. No history urinary tract infections or nephrolithiasis. He did undergo a CT urogram in September 2021 which showed a 5 mm stone in the right kidney, right renal cyst, which appeared simple, and a 1.3 cm adrenal nodule. PSA up to date: yes Blood thinners: Eliquis Retention or clots: Neither Hematuria Risk Factors: Age >40: Yes Smoking history: No Occupational exposure to chemicals or dyes (ie, benzenes, aromatic amines): no History of urologic disorder or disease: no History of irritative voiding symptoms: yes History of urinary tract infection: no Analgesic abuse: no History of pelvic irradiation: no The following portions of the patient's history were reviewed and updated as appropriate: allergies, current medications, past family history, past medical history, past social history, past surgicalhistory and problem list. REVIEW OF SYSTEMS Review of Systems Constitutional: Negative for chills and fever. Respiratory: Negative for shortness of breath. Cardiovascular: Negative for chest pain. Gastrointestinal: Positive for constipation (Occasional). Negative for nausea and vomiting. Genitourinary: Positive for difficulty urinating, frequency, hematuria and urgency. Musculoskeletal: Positive for arthralgias. Per HPI. Patient Active Problem List Diagnosis ??? Elevated prostate specific antigen (PSA) ??? Memory loss, short term ??? Paroxysmal atrial fibrillation (H) ??? Benign essential hypertension ??? Mitral regurgitation Past Medical History: Diagnosis Date ??? Benign essential hypertension 12/24/2021 ??? Chronic atrial fibrillation (H) 12/24/2021 ??? Palpitations Past Surgical History: Procedure Laterality Date ??? ANESTHESIA CARDIOVERSION N/A 05/10/2021 Procedure: ANESTHESIA, FOR CARDIOVERSION; Surgeon: GENERIC ANESTHESIA PROVIDER; Location: OR ??? ANESTHESIA CARDIOVERSION N/A 06/12/2021 Procedure: ANESTHESIA, FOR CARDIOVERSION; Surgeon: GENERIC ANESTHESIA PROVIDER; Location: OR Social History: . [place]. Family History: No known family history of nephrolithiasis or malignancy. Family history of his father having prostate surgery. He is uncertain if this is for prostate cancer or BPH. Objective PHYSICAL EXAM BP (!) 160/85 Pulse 63 Ht 1.829 m (6') Wt 88.9 kg (196 lb) BMI 26.58 kg/m?? Physical Exam Constitutional: Appearance: Normal appearance. HENT: Head: Normocephalic. Nose: Nose normal. Eyes: General: No scleral icterus. Pulmonary: Effort: Pulmonary effort is normal. Abdominal: General: There is no distension. Musculoskeletal: General: Normal range of motion. Cervical back: Normal range of motion. Right lower leg: No edema. Left lower leg: No edema. Skin: General: Skin is warm and dry. Findings: Rash present. Neurological: General: No focal deficit present. Mental Status: He is alert and oriented to person, place, and time. Psychiatric: Mood and Affect: Mood normal. Behavior: Behavior normal. LABORATORY Recent Labs Lab Test 11/19/22 1403 09/06/21 1020 COLOR Yellow Yellow APPEARANCE Clear Clear URINEGLC Negative Negative URINEBILI Negative Negative URINEKETONE Trace* Negative SG 1.025 1.025 UBLD Negative Trace* URINEPH 6.0 6.0 PROTEIN Negative Negative UROBILINOGEN 2.0* 1.0 NITRITE Negative Negative LEUKEST Negative Negative RBCU -- 5-10* WBCU -- None Seen Lab Results Component Value Date PSA 4.79 (H) 09/06/2021 PSA 5.16 (H) 03/06/2021 PSA 5.06 (H) 02/28/2020 PSA 4.74 (H) 08/21/2018 IMAGING I personally reviewed the images. CT UROGRAM WITHOUT AND WITH CONTRAST 09/21/2021 10:48 AM ?? HISTORY: Microscopic hematuria. ?? TECHNIQUE: CT urogram protocol was performed. Volumetric helical sections were acquired from the lung bases through the ischial tuberosities prior to administration of IV contrast. 98mL Isovue-370 IV were administered using a split bolus technique. After contrast administration, volumetric helical sections were again acquired from the lung bases to the ischial tuberosities. Coronal images were also reconstructed. Radiation dose for this scan was reduced using automated exposure control, adjustment of the mA and/or kV according to patient size, or iterative reconstruction technique. ?? COMPARISON: None. ?? FINDINGS: Right urinary tract: Nonobstructing stone in the lower pole of the right kidney measures 0.5 cm. No ureteral calculi. No hydronephrosis. No solid renal masses. A 3.3 cm cystic lesion in the lower pole of the right kidney contains a small amount of calcified debris layering dependently. A few smaller renal cortical cysts on the right are also noted. These right renal cystic lesions would typically require no routine follow-up. The collecting system and proximal ureter are moderately well opacified, and no filling defects are identified. ?? Left urinary tract: No urinary calculi. No hydronephrosis. No solid renal masses. The collecting system and proximal ureter are moderately well opacified, and no filling defects are identified. ?? Urinary bladder: No bladder stones or masses are identified. Mild prostatic enlargement. ?? Other findings: The visualized lung bases are clear. A small right hepatic cyst would typically require no routine follow-up. There is an indeterminate 1.3 cm left adrenal nodule. The liver, gallbladder, pancreas, spleen, and adrenal glands are otherwise unremarkable. No bowel obstruction. No free fluid in the pelvis. No lymphadenopathy. Moderate atherosclerotic aortoiliac calcification. ?? IMPRESSION: 1. Nonobstructing stone in the lower pole of the right kidney measures 0.5 cm. 2. Mild prostatic enlargement. 3. Indeterminate 1.3 cm left adrenal nodule. Consider adrenal protocol CT for further characterization. ?? LARA MUSA MD TESTING PVR: 54 mL Assessment & Plan 1. Microscopic hematuria 2. Nocturia 3. Lesion of adrenal gland (H) I had the pleasure today of meeting with Mr. Mendez to discuss microscopic hematuria. The differential diagnosis at this point includes stone disease, infection, urothelial malignancy, renal disorder versus another yet unknown diagnosis. Many times, we do not find a cause, but we should rule outbad causes. At this time, recommend proceeding with comprehensive hematuria evaluation to include: - CT urogram for upper tract imaging--already completed and shows a stone and adrenal nodule. - Cystoscopy with the first available urologist to evaluate the interior of the bladder. Follow up for hematuria as recommended by urologist performing cystoscopic evaluation. -PSA up to date-we did discuss that this appears elevated when looking at the labs, but using age-adjusted PSA grading, this is appropriate given his age. Additionally, he is actually out of prostatecancer screening age. -CT adrenal to evaluate the adrenal lesion. -Continue to restrict fluid prior to bedtime (3-4 hours) Nighttime urination of 2 times is normal at your age. -Will monitor urinary symptoms. If they worsen, would consider trial of Flomax 0.4 mg once daily. -Follow up in 1 year with UA, post void residual, and symptom assessment. Contact us in the interim with questions, concerns, or changes in symptomatology. [phone] Signed by: Franny Shrestha PA-C 11/19/2022 2:31 PM documented in this encounter Nursing Notes * Idalia Loyola CMA - 11/19/2022 2:00 PM CDT Chief Complaint Patient presents with ??? Microscopic hematuria Pt states he has not seen visible blood. Pt states he is waking 2-3 times a night to urinate PVR: 54 mL Idalia Loyola CMA documented in this encounter Plan of Treatment Scheduled Orders Name Type Priority Associated Diagnoses Orde r Schedule CT Abdomen Pelvis w/o & w Contrast [[id number]] Imaging Routine Microscopic hematuria Lesion of adrenal gland (H) Expected: 11/19/2022 (Approximate), Expires: 11/20/2023 documented as of this encounter Procedures Procedure Name Priority Date/Time Associated Diagnosis Comments URINALYSIS MACROSCOPIC Routine 11/19/2022 2:03 PM CDT Microscopic hematuria UT MEASURE POST-VOID RESIDUAL URINE/BLADDER CAPACITY, US NON-IMAGING Routine 11/19/2022 Nocturia documented in this encounter Results * (ABNORMAL) UA without Microscopic [[id number]] (11/19/2022 2:03 PM CDT) Color Urine Yellow Colorless, Straw, Light Yellow, Yellow 11/19/2022 2:12 PM CDT [facility] Appearance Urine Clear Clear 11/20/19 23 2:12 PM CDT [facility] Glucose Urine Negative Negative mg/dL 11/19/2022 2:12 PM CDT [facility] Bilirubin Urine Negative Negative 3 2:12 PM CDT [facility] Ketones Urine Trace(A) Negative mg/dL 11/19/2022 2:12 PM CDT [facility] Specific [place] Urine 1.025 1.003 - 1.035 11/19/2022 2:12 PM CDT [facility] Blood Urine Negative Negative 11/19/2022 2:12 PM CDT [facility] pH Urine 6.0 5.0 - 7.0 11/19/2022 2:12 PM CDT [facility] Protein Albumin Urine Negative Negative mg/dL 11/19/2022 2:12 PM CDT [facility] Urobilinogen Urine 2.0(A) 0.2, 1.0 E.U./dL 11/19/2022 2:12 PM CDT [facility] Nitrite Urine Negative Negative 11/19/2022 2:12 PM CDT [facility] Leukocyte Esterase Urine Negative Negative 11/19/2022 2:12 PM CDT [facility] Urine MID-STREAM URINE SPECIMEN / Unknown Non-blood Collection / Unknown 11/19/2022 2:03 PM CDT 11/19/2022 2:04 PM CDT Franny Shrestha PA-C LAB - URINE O RDERABLES [facility] [address] [facility] [place] [address], [facility] [phone] * MEASURE POST-VOID RESIDUAL URINE/BLADDER CAPACITY, US NON-IMAGING ([id number]) (11/19/2022) Residual Volume (RV) (External) 54 Franny Shrestha PA-C PROCEDURES documented in this encounter Visit Diagnoses Diagnosis Microscopic hematuria- Primary Nocturia Lesion of adrenal gland (H24) documented in this encounter Care Teams Medical Office Administrator Relationship Specialty Start Date End Date Vitaliy Solo MD [facility] [address] [place] [address] PCP - General Emergency Medicine 07/19/22 Laureen Dye, SUPERVISOR REFINING SERVICES ADVISOR [address] [place] [address] Assigned Heart and Vascular Provider 05/27/21 01/17/23 Franny Shrestha PA-C [address] [place] [address] Physician Linesperson Urology 10/01/21 Franny Shrestha PA-C [address] [place] [address] Assigned Surgical Provider 12/29/21 11/22/22 [place] [address] [place] [address] Family Medicine 08/27/22 [place] [address] [place] [address] Assigned PCP 08/31/22 documented as of this encounter
--- OUTSIDE RECORDS SUMMARY | 2023-07-30 13:36 | XMS_ITS | Encounter Summary ---
Author Name Unknown Organization [place] Address [address] [place] [address]. [place] [address] Care Team Providers Care Steamboat Captain Name Role Phone Laureen Dye APRN FIELD SERVICE TECHNICIAN POULTRY Unavailable [phone] Franny Shrestha PA-C Unavailable Franny Shrestha PA-C Unavailable [phone] Vitaliy Solo MD Primary Care Provider Bryon Bell MD Unavailable Anyi Broderick MD Unavailable iAmee Mascorro MD Unavailable [phone] Franny Shrestha PA-C Unavailable Amanda Ibrahim MD Unavailable Encounter Details Date Type Department Care Team (Late st Contact Info) Description 11/03/2022 [facility] Medical Advice [facility] [place] [address] [facility] [address] [place] [address] Amanda Ibrahim MD [address] [facility] [address] [place] [address] Social History Tobacco Use Types Packs/Day Years [...] on filedocumented in this encounter Care Teams Steamboat Captain Relationship Specialty Start Date End Date Vitaliy Solo MD [facility] [address] [place] [address] PCP - General Emergency Medicine 07/19/22 Laureen Dye, AIRCRAFT SHEET METAL MECHANIC FIELD SERVICE TECHNICIAN POULTRY [address] [place] [address] Assigned Heart and Vascular Provider 05/27/21 01/17/23 Franny Shrestha PA-C [address] [place] [address] Physician Administrative Supervisor Urology 10/01/21 Franny Shrestha PA-C [address] [place] [address] Assigned Surgical Provider 12/29/21 11/22/22 [place] [address] [place] [address] Family Medicine 08/27/22 [place] [address] [place] [address] Assigned PCP 08/31/22 Aimee Mascorro MD [facility] [address] [place] [address] Assigned Surgical Provider 11/23/22 12/20/22 Franny Shrestha PA-C [address] [place] [id number] Assigned Surgical Provider 12/21/22 Amanda Ibrahim MD [address] [facility] [address] [place] [id number] Assigned Heart and Vascular Provider 01/18/23 documented as of this encounter
--- OUTSIDE RECORDS SUMMARY | 2023-07-30 13:36 | XMS_ITS | Clinical Summary ---
Author Name Unknown Organization [facility] Address [address] [place] [address] Care Team Providers Care Indoor Landscape Architect Name Role Phone Franny Shrestha PA-C Unavailable Vitaliy Solo MD Primary Care Provider Bryon Bell MD Unavailable [phone] Anyi Broderick MD Unavailable Franny Shrestha PA-C Unavailable Amanda Ibrahim MD Unavailable [phone] Allergies No known active allergies Medications Medication [...] (OCEAN) 0.65 % nasal sprayIndications:Nasa l obstruction Winn 2 sprays in nostril 4 times daily [...] Vaccine (Adacel) 2014 Zoster vaccine, live 04/27/2012 Family History Medical History Relation Comments Heart Disease Father Hyperlipidemia Father Diabetes Mother Hyperlipidemia Mother Hypertension Mother Relation Status Comments Father Mother Social History Tobacco Use Types Packs/Day Years [...] 36 ??C (96.8 ??F) 09/06/2021 10:26 AM PLACING JUDGE Respiratory Rate 14 09/06/2021 10:26 AM PLACING JUDGE Oxygen Saturation 98% 07/19/2022 2:28 PM PLACING JUDGE Inhaled Oxygen Concentration - - Weight 88.9 kg (196 lb) 11/19/2022 2:07 PM CDT Height 182.9 cm (6') 11/19/2022 2:07 PM CDT Body Mass Index 26.58 11/19/2022 2:07 PM CDT Plan of Treatment Health Maintenance Due Date Last Done Comments ANNUAL REVIEW OF HM ORDERS 1944 HF ACTION PLAN 1944 RSV VACCINE ( & 60+) (1 - 1-dose 60+ series) 2004 ZOSTER IMMUNIZATION (2 of 3) 06/22/2012 04/27/2012 LIPID 02/27/2021 02/28/2020, 08/07, 08/28/2017, Additional history exists CBC 03/06/2022 03/06/2021 FALL RISK ASSESSMENT 03/06/2022 03/06/2021, 02/28/2020, 08/21/2018 MEDICARE ANNUAL WELLNESS VISIT 03/06/2022 03/06/2021, 02/28/2020, 08/21/2018 BMP 01/29/2023 08/01/2022, 08/08, 05/10/2021, Additional history exists COVID-19 Vaccine ( season) 2023 02/19/2021, 01/22/2021 INFLUENZA VACCINE (#1) 2023 7, 05/16/2016, 06/06/2015, Additional history exists PHQ-2 (once per calendar year) 2023 12/24/2021, 09/06/2021, 08/29/2021, Additional history exists ALT 07/19/2023 07/19/2022, 09/04, 03/06/2021, Additional history exists ADVANCE CARE PLANNING 03/06/2026 03/06/2021, 020 DTAP/TDAP/TD IMMUNIZATION (3 - Td or Tdap) 07/15/2032 07/15/2022, 2014, 11/17/2001 COLONOSCOPY Discontinued 03/10/2014, 03/10/2014 COLORECTAL CANCER SCREENING Discontinued Pneumococcal Vaccine: 65+ Years Completed 08/21/2018, 06/06/2015, 05/02/2011 HEPATITIS C SCREENING Completed 03/06/2021 TSH W/FREE T4 REFLEX Completed 07/19/2022, 09/18/2021, 03/06/2021, Additional history exists CT COLONOGRAPHY Discontinued FIT Discontinued FLEX SIG Discontinued HPV IMMUNIZATION Aged Out No longer e ligible based on patient's age to complete this topic IPV IMMUNIZATION Aged Out No longer e ligible based on patient's age to complete this topic MENINGITIS IMMUNIZATION Aged Out No l onger eligible based on patient's age to complete this topic RSV MONOCLONAL ANTIBODY Aged Out No l onger eligible based on patient's age to complete this topic sDNA (Cologuard) Discontinued Care Teams Indoor Landscape Architect Relationship Specialty Start Date End Date Vitaliy Solo MD [facility] [address] [place] [address] PCP - General Emergency Medicine 07/19/22 Franny Shrestha PA-C [address] [place] [address] Physician Manager Hotel Urology 10/01/21 [place] [address] [place] [place] [address] Family Medicine 08/27/22 [place] [address] [place] [address] Assigned PCP 08/31/22 Franny Shrestha PA-C [address] [place] [address] Assigned Surgical Provider 12/21/22 Amanda Ibrahim MD [address] [facility] [address] [facility] [address] [place] [address] Assigned Heart and Vascular Provider 01/18/23
--- OUTSIDE RECORDS SUMMARY | 2023-07-30 13:36 | XMS_ITS | Encounter Summary ---
Author Name Unknown Organization [place] Address [address] [place] [address] Care Team Providers Care Drawing Machine Operator Name Role Phone Laureen Dye APRN SKIP MINER BLASTING Unavailable [phone] Franny Shrestha PA-C Unavailable [phone] Franny Shrestha PA-C Unavailable [phone] Vitaliy Solo MD Primary Care Provider Bryon Bell MD Unavailable [phone] Anyi Broderick MD Unavailable Encounter Details Date Type Department Care Team (Latest Contact Info) Description 11/19/2022 Travel Social History Tobacco Use Types Packs/Day [...] on filedocumented in this encounter Care Teams Drawing Machine Operator Relationship Specialty Start Date End Date Vitaliy Solo MD [facility] [address] [place] [address] PCP - General Emergency Medicine 07/19/22 Laureen Dye, FLAT LOCK MACHINE OPERATOR SKIP MINER BLASTING [address] [place] [address] Assigned Heart and Vascular Provider 05/27/21 01/17/23 Franny Shrestha PA-C [address] [place] [address] Physician Balance Wheel Facer Urology 10/01/21 Franny Shrestha PA-C [address] [place] [address] Assigned Surgical Provider 12/29/21 11/22/22 [place] [address] [place] [address] Family Medicine 08/27/22 [place] [address] [place] [address] Assigned PCP 08/31/22 documented as of this encounter
--- OUTSIDE RECORDS SUMMARY | 2023-07-30 13:36 | XMS_ITS | Continuity of Care Document ---
Author Name [facility] Organization [facility] Care Team Providers Care Multimedia Designer Name Role Phone [facility] Unavailable Unavailable Problems Combined list of problems from Department of Defense and Veterans Affairs facilities. It does not include entries that were removed or entered in error. Problem Status Onset Date Problem Type Date of Resolution Comments Source Hearing loss Active Condition Oct 30, 2018 Entered By: ANNIE SOTOMAYOR Comment: Right ear [facility] Raised prostate specific antigen Active Condition [facility] Tinea cruris Active Condition [facility] Medications Combined list of outpatient medications from Department of Defense and Veterans Affairs facilities.Medications provided include 1) outpatient medications from the last 15 months, and 2) patient-reported medications. Medication Details Route Status Patient Instructions Prescription Expires Prescription Number Last Dispense Date Ordering Provider Order Date Source CLOTRIMAZOL E 1% CREAM,TOP APPLY THIN LAYER TOPICALL Y TWICE A DAY STEREO PLOTTER OPERATOR AL USE ONLY FOR FUNGAL INFECTIO N TOPICA LLY 06/19/2023 [id number] 3 CAM SOTOMAYOR 2021 [facility] Encounters Combined list of: 1) Encounters from Department of Veterans Affairs facilities going back up to thelast 18 months. 2) Encounters from the Department of Defense facilities going back up to 280 months. Location Location Details Encounter Type Encounter Number Reason For Visit Attending Provider ADM Date DC Date Status Dis[facility] Outpatient Encounter [id number] 03/21 [facility] Outpatient Encounter [id number] 03/13 [facility] Outpatient Encounter [id number] 04/16 [facility] Outpatient Encounter [id number] 04/17 [facility] Outpatient Encounter [id number] 04/18 [place] [facility] [place] [facility] Outpatient Encounter [id number] 05/01 [facility] [place] [facility] Outpatient Encounter [id number] 05/01 [place] [facility] [place] [facility] Outpatient Encounter [id number] 05/12 [facility] Social History Combined list of available smoking, tobacco, and other social history from Department of Defense and Veterans Affairs facilities. Social History Type Response Date Comment [facility] e Tobacco smoking status [facility] NEVER USED 10/21/2018 [facility]
--- OUTSIDE RECORDS SUMMARY | 2023-07-30 13:37 | XMS_ITS | Encounter Summary ---
Author Name Unknown Organization [place] Address [address] [place] [address]. [place] [address] Care Team Providers Care Intelligence Director Name Role Phone Laureen Dye APRN JACK WINDER Unavailable [phone] Franny Shrestha PA-C Unavailable Franny Shrestha PA-C Unavailable Vitaliy Solo MD Primary Care Provider Bryon Bell MD Unavailable [phone] Anyi Broderick MD Unavailable Encounter Details Date Type Department Care Team (Late st Contact Info) Description 10/08/2022 My[facility] Medical Advice [facility] [place] [address] [facility] [address] [place] [address] Amanda Ibrahim MD [address] [facility] [address] [place] [address] Social History Tobacco Use Types [...] Orientation Straight 03/03/2021 2: 33 PM CDT documented as of this encounter Plan of Treatment Not on file documented as of this encounter Visit Diagnoses Not on filedocumented in this encounter Care Teams Intelligence Director Relationship Specialty Start Date End Date Vitaliy Solo MD [facility] [address] [place] [address] PCP - General Emergency Medicine 07/19/22 Laureen Dye, GUS JACK WINDER [address] [place] [address] Assigned Heart and Vascular Provider 05/27/21 01/17/23 Franny Shrestha PA-C [address] [place] [address] Physician Meat Selector Urology 10/01/21 Franny Shrestha PA-C [address] [place] [address] Assigned Surgical Provider 12/29/21 11/22/22 [place] [address] [place] [address] Family Medicine 08/27/22 [place] [address] [place] [address] Assigned PCP 08/31/22 documented as of this encounter
--- OUTSIDE RECORDS SUMMARY | 2023-07-30 13:37 | XMS_ITS | Encounter Summary ---
Author Name Unknown Organization [place] Address [address] [place] [address] Care Team Providers Care Loom Stop Checker Name Role Phone Laureen Dye APRN TRANSPORTATION MAINTENANCE OPERATOR Unavailable [phone] Franny Shrestha PA-C Unavailable Franny Shrestha PA-C Unavailable Vitaliy Solo MD Primary Care Provider Bryon Bell MD Unavailable Anyi Broderick MD Unavailable Aimee Mascorro MD Unavailable [phone] Franny Shrestha PA-C Unavailable Amanda Ibrahim MD Unavailable [phone] Encounter Details Date Type Department Care Team (Late st Contact Info) Description 08/09/2022 [facility] Medical Advice [facility] [address] [place] [phone] Josie Rosa, RN Social History Tobacco Use Types Packs/Day Years [...] suspected to have Coronavirus/COVID-19? No / Unsure 08/01/2022 11:05 AM BRAZER RESISTANCE documented as of this encounter Plan of Treatment Not on file documented as of this encounter Visit Diagnoses Not on filedocumented in this encounter Care Teams Loom Stop Checker Relationship Specialty Start Date End Date Vitaliy Solo MD [facility] [address] [place] [address] PCP - General Emergency Medicine 07/19/22 Laureen Dye, LANDING WORKER TRANSPORTATION MAINTENANCE OPERATOR [address] [place] [address] Assigned Heart and Vascular Provider 05/27/21 01/17/23 Franny Shrestha PA-C [address] [place] [address] Physician Home Health Attendant Urology 10/01/21 Franny Shrestha PA-C [address] [place] [address] Assigned Surgical Provider 12/29/21 11/22/22 [place] [address] [place] [address] Family Medicine 08/27/22 [place] [address] [place] [address] Assigned PCP 08/31/22 Aimee Mascorro MD [facility] [address] [place] [address] Assigned Surgical Provider 11/23/22 12/20/22 Franny Shrestha PA-C [address] [place] [address] Assigned Surgical Provider 12/21/22 Amanda Ibrahim MD [address] [facility] [address] [place] [address] Assigned Heart and Vascular Provider 01/18/23 documented as of this encounter
--- OUTSIDE RECORDS SUMMARY | 2023-07-30 13:37 | XMS_ITS | Encounter Summary ---
Author Name Unknown Organization [place] Address [address] [place] [address] Care Team Providers Care Superintendent Colliery Name Role Phone Laureen Dye APRN TAXATION CONSULTANT Unavailable [phone] Franny Shrestha PA-C Unavailable [phone] Franny Shrestha PA-C Unavailable [phone] Vitaliy Solo MD Primary Care Provider Bryon Bell MD Unavailable [phone] Encounter Details Date Type Department Care Team (Latest Contact Info) Description 08/27/2022 Travel Social History Tobacco Use Types Packs/Day [...] was confirmed or suspected to have Coronavirus/COVID-19? Unable to assess 08/27/2022 1:55 PM PHILOSOPHY FACULTY documented as of this encounter Plan of Treatment Not on file documented as of this encounter Visit Diagnoses Not on filedocumented in this encounter Care Teams Superintendent Colliery Relationship Specialty Start Date End Date Vitaliy Solo MD [facility] [address] [place] [address] PCP - General Emergency Medicine 07/19/22 Laureen Dye APRN TAXATION CONSULTANT [address] [place] [address] Assigned Heart and Vascular Provider 05/27/21 01/17/23 Franny Shrestha PA-C [address] [place] [address] Physician Bottom Polisher Urology 10/01/21 Franny Shrestha PA-C [address] [place] [address] Assigned Surgical Provider 12/29/21 11/22/22 [place] [address] [place] [address] Family Medicine 08/27/22 documented as of this encounter
--- OUTSIDE RECORDS SUMMARY | 2023-07-30 13:37 | XMS_ITS | Encounter Summary ---
Author Name Unknown Organization [place] Address [address] [place] [address] Care Team Providers Care Cold Rolling Supervisor Name Role Phone Laureen Dye APRN SHORT ORDER COOK Unavailable [phone] Franny Shrestha PA-C Unavailable [phone] Franny Shrestha PA-C Unavailable [phone] Vitaliy Solo MD Primary Care Provider Encounter Details Date Type Department Care Team (Late st Contact Info) Description 08/01/2022 11:15 AM TEMPERER [facility] Heart [address] [address] Atrial fibrillation, unspecified type (H) Social History Tobacco Use Types Packs/Day [...] Coronavirus/COVID-19? No / Unsure 08/01/2022 11:05 AM TEMPERER documented as of this encounter Plan of Treatment Not on file documented as of this encounter Procedures Procedure Name Priority Date/Time Associated Diagnosis Comments BASIC METABOLIC PANEL Routine 08/01/2022 11:08 AM TEMPERER Atrial fibrillation, unspecified type (H) documented in this encounter Results * (ABNORMAL) Basic metabolic panel (08/01/2022 11:08 AM TEMPERER) Sodium 140 136 - 145 mmol/L 08/01/2022 11:43 AM [facility] Potassium 4.2 3.4 - 5.3 mmol/L 08/01/2022 11:43 AM [facility] Chloride 103 98 - 107 mmol/L 08/01/2022 11:43 AM [facility] Carbon Dioxide (CO2) 31(H) 22 - 29 mmol/L 08/01/2022 11:43 AM [facility] Anion Gap 6(L) 7 - 15 mmol/L 08/01/2022 11:43 AM [facility] Urea Nitrogen 20.9 8.0 - 23.0 mg/dL 08/01/2022 11:43 AM [facility] Creatinine 0.92 0.67 - 1.17 mg/dL 08/01/2022 11:43 AM [facility] Calcium 8.9 8.8 - 10.2 mg/dL 08/01/2022 11:43 AM [facility] Glucose 187(H) 70 - 99 mg/dL 08/01/2022 11:43 AM [facility] GFR Estimate 85 >60 mL/min/1.7 3m2 08/01/2022 11:43 AM [facility] Comment:eGFR calculated usin g 2020 CKD-EPI equation. Blood STRUCTURE OF LEFT UPPER LIMB / Unknown Venipuncture / Unknown 08/01/2022 11:08 AM TEMPERER 08/01/2022 11:13 AM [facility] Amanda Ibrahim MD LAB - BLOOD ORDERAB LES LABORATORY [facility] Acute Care Lab [address] Lab (1st floor, no room number) [place] [address], [place] [phone] documented in this encounter Visit Diagnoses Diagnosis Atrial fibrillation, unspecified type (H) documented in this encounter Care Teams Cold Rolling Supervisor Relationship Specialty Start Date End Date Vitaliy Solo MD [facility] [address] [facility] [place] [address] PCP - General Emergency Medicine 07/19/22 Laureen Dye, GUS SHORT ORDER COOK [address] [place] [address] Assigned Heart and Vascular Provider 05/27/21 01/17/23 Franny Shrestha PA-C [address] [place] [address] Physician Cupola Melter Helper Urology 10/01/21 Franny Shrestha PA-C [address] [place] [address] Assigned Surgical Provider 12/29/21 11/22/22 documented as of this encounter
--- OUTSIDE RECORDS SUMMARY | 2023-07-30 13:37 | XMS_ITS | Encounter Summary ---
Author Name Unknown Organization [place] Address [facility] [place] [address] Care Team Providers Care Intern Retail Name Role Phone Hardik December DINING ROOM BUSSER Unavailable [phone] Franny Shrestha PA-C Unavailable Franny Shrestha PA-C Unavailable Anyi Broderick MD Unavailable Vitaliy Solo MD Primary Care Provider Bryon Bell MD Unavailable Anyi Broderick MD Unavailable Aimee Mascorro MD Unavailable [phone] Franny Shrestha PA-C Unavailable [phone] Amanda Ibrahim MD Unavailable Encounter Details Date Type Department Care Team (Late st Contact Info) Description 06/20/2022 [facility] [place] [address] [facility] [address] [place] [address] Hardik December, DINING ROOM BUSSER [address] [facility] [address] [place], [place] [address] Social History Tobacco Use Types Packs/Day Years [...] on filedocumented in this encounter Care Teams Intern Retail Relationship Specialty Start Date End Date Vitaliy Solo MD [facility] [address] [place] [address] PCP - General Emergency Medicine 07/19/22 Laureen Dye, OFFICE HELPER CLERICAL DINING ROOM BUSSER [address] [place] [address] Assigned Heart and Vascular Provider 05/27/21 01/17/23 Franny Shretsha PA-C [address] [place] [address] Physician Bellman Captain Urology 10/01/21 Franny Shrestha PA-C [address] [place] [address] Assigned Surgical Provider 12/29/21 11/22/22 [place] [address] [place] [address] Assigned PCP 03/23/22 06/21/22 [place] [address] [place] [address] Family Medicine 08/27/22 [place] [address] [place] [address] Assigned PCP 08/31/22 Aimee Mascorro MD [facility] [address] , [address] [place] [address] Assigned Surgical Provider 11/23/22 12/20/22 Franny Shrestha PA-C [address] [place] [address] Assigned Surgical Provider 12/21/22 Amanda Ibrahim MD [address] [facility] [address] [facility] [address] [place] [address] Assigned Heart and Vascular Provider 01/18/23 documented as of this encounter
--- OUTSIDE RECORDS SUMMARY | 2023-07-30 13:37 | XMS_ITS | Encounter Summary ---
Author Name Unknown Organization [place] Address [address] [place] [address] Care Team Providers Care Pets And Pet Supplies Salesperson Name Role Phone Nikki Pierre RN Unavailable Unavailable Bryon Bell MD Primary Care Provider [phone] Laureen Dye APRN MARINE CARGO SPECIALIST Unavailable [phone] Franny Shrestha PA-C Unavailable [phone] Franny Shrestha PA-C Unavailable Anyi Broderick MD Unavailable Bryon Bell MD Unavailable [phone] Anyi Broderick MD Unavailable Vitaliy Solo MD Primary Care Provider Bryon Bell MD Unavailable [phone] Anyi Broderick MD Unavailable Aimee Mascorro MD Unavailable [phone] Franny Shrestha PA-C Unavailable Amanda Ibrahim MD Unavailable [phone] Encounter Details Date Type Department Care Team (Late st Contact Info) Description 02/06/2022 [facility] Medical Advice [address] [address] Nikki Pierre RN Social History Tobacco Use Types Packs/Day [...] on filedocumented in this encounter Care Teams Pets And Pet Supplies Salesperson Relationship Specialty Start Date End Date Bryon Bell MD PCP - General Family Medicine 03/06/21 05/05/22 Vitaliy Solo MD [facility] [address] [place] [address] PCP - General Emergency Medicine 07/19/22 Nikki Pierre, SHERMAN Personal Advocate & Liaison (PAL) Family Medicine 03/06/21 03/25/22 Laureen Dye APRN MARINE CARGO SPECIALIST [address] [place] [address] Assigned Heart and Vascular Provider 05/27/21 01/17/23 Franny Shrestha PA-C [address] [place] [address] Physician Party Supply Specialist Urology 10/01/21 Franny Shrestha PA-C [address] [place] [address] Assigned Surgical Provider 12/29/21 11/22/22 [place] [address] [place] [address] Assigned PCP 01/19/22 03/08/22 [place] [address] [place] [address] Assigned PCP 03/09/22 03/22/22 [place] [address] [place] [address] Assigned PCP 03/23/22 06/21/22 [place] [address] [place] [address] MD Family Medicine 08/27/22 [place] [address] [place] [address] Assigned PCP 08/31/22 Aimee [facility]ascorro MD [facility] [address] [place] [address] Assigned Surgical Provider 11/23/22 12/20/22 Franny Shrestha PA-C [address] [place] [address] Assigned Surgical Provider 12/21/22 Amanda Ibrahim MD [address] [place] [address] Assigned Heart and Vascular Provider 01/18/23 documented as of this encounter
--- OUTSIDE RECORDS SUMMARY | 2023-07-30 13:37 | XMS_ITS | Encounter Summary ---
Author Name Unknown Organization [place] Address [address] [place] [address]. [place] [address] Care Team Providers Care Culinary Worker Name Role Phone Laureen Dye APRN STAFF OCCUPATIONAL THERAPIST Unavailable [phone] Franny Shrestha PA-C Unavailable Franny Shrestha PA-C Unavailable [phone] Vitaliy Solo MD Primary Care Provider Bryon Bell MD Unavailable [phone] Anyi Broderick MD Unavailable Encounter Details Date Type Department Care Team (Late st Contact Info) Description 10/15/2022 Telephone [facility] [address] [place] [address] [place] [address] [place] [address] Social History Tobacco Use Types Packs/Day Years [...] PM CDT documented as of this encounter Miscellaneous Notes * Telephone Encounter - Katarina Chicas MA - 10/15/2022 10:16 AM CDT Patient Quality Outreach Patient is due for the following: Physical Annual Wellness Visit Next Steps: No follow up needed at this time. The patient is not longer going to be using [facility] at this time. He will be using [facility] with Dr. Solo for is PCP. Type of outreach: Phone, spoke to patient/parent. No further cares unless using Cardiology through [facility]. Next Steps: Reach out within 90 days via do not call.. Max number of attempts reached: Yes. Will try again in 90 days if patient still on fail list. Questions for provider review: None Katarina Chicas MA Chart routed to Care Team. documented in this encounter Plan of Treatment Not on file documented as of this encounter Visit Diagnoses Not on filedocumented in this encounter Care Teams Culinary Worker Relationship Specialty Start Date End Date Vitaliy Solo MD [facility] [address] [place] [address] PCP - General Emergency Medicine 07/19/22 Laureen Dye, GUS STAFF OCCUPATIONAL THERAPIST [address] [place] [address] Assigned Heart and Vascular Provider 05/27/21 01/17/23 Franny Shrestha PA-C [address] [place] [address] Physician Clinic Receptionist Urology 10/01/21 Franny Shrestha PA-C [address] [place] [address] Assigned Surgical Provider 12/29/21 11/22/22 [place] [address] [address] [place], [place] [address] Family Medicine 08/27/22 [place] [address] [address] [place], [place] [address] Assigned PCP 08/31/22 documented as of this encounter
--- OUTSIDE RECORDS SUMMARY | 2023-07-30 13:37 | XMS_ITS | Encounter Summary ---
Author Name Unknown Organization [place] Address [address] [place] [address]. [place] [address] Care Team Providers Care Account Manager Education Name Role Phone Laureen Dye APRN PAPER PATTERN INSPECTOR Unavailable [phone] Franny Shrestha PA-C Unavailable [phone] Franny Shrestha PA-C Unavailable Vitaliy Solo MD Primary Care Provider Bryon Bell MD Unavailable Anyi Broderick MD Unavailable Aimee Mascorro MD Unavailable [phone] Farnny Shrestha PA-C Unavailable Amanda Ibrahim MD Unavailable Encounter Details Date Type Department Care Team (Late st Contact Info) Description 09/15/2022 [facility] [place] [address] [facility] [address] [place] [address] Amanda Ibrahim MD [address] [facility] [address] [place] [address] Social History Tobacco Use Types [...] Coronavirus/COVID-19? Unable to assess 08/27/2022 1:55 PM AGRICULTURAL PURCHASING AGENT documented as of this encounter Plan of Treatment Not on file documented as of this encounter Visit Diagnoses Not on filedocumented in this encounter Care Teams Account Manager Education Relationship Specialty Start Date End Date Vitaliy Solo MD [facility] [address] [place] [address] PCP - General Emergency Medicine 07/19/22 Laureen Dye, PSYCH ASSISTANT PAPER PATTERN INSPECTOR [address] [place] [address] Assigned Heart and Vascular Provider 05/27/21 01/17/23 Franny Shrestha PA-C [address] [place] [address] Physician Registered Respiratory Technician Urology 10/01/21 Franny Shrestha PA-C [address] [place] [address] Assigned Surgical Provider 12/29/21 11/22/22 [place] [address] [place] [address] Family Medicine 08/27/22 [place] [address] [place] [address] Assigned PCP 08/31/22 Aimee Mascorro MD [facility] [address] [place] [address] Assigned Surgical Provider 11/23/22 12/20/22 Franny Shrestha PA-C [address] [place] [address] Assigned Surgical Provider 12/21/22 Amanda Ibrahim MD [address] [facility] [address] [place] [address] Assigned Heart and Vascular Provider 01/18/23 documented as of this encounter
--- OUTSIDE RECORDS SUMMARY | 2023-07-30 13:37 | XMS_ITS | Encounter Summary ---
Author Name Unknown Organization [place] Address [address] [place] [address] Care Team Providers Care Cordage Sales Representative Name Role Phone Laureen Dye APRN MEDICAL SCRIBE Unavailable [phone] Franny Shrestha PA-C Unavailable [phone] Franny Shrestha PA-C Unavailable [phone] Vitaliy Solo MD Primary Care Provider Encounter Details Date Type Department Care Team (Latest Contact Info) Description 08/01/2022 Travel Social History Tobacco Use Types Packs/Day [...] Coronavirus/COVID-19? No / Unsure 08/01/2022 11:05 AM CHROMIUM PLATER documented as of this encounter Plan of Treatment Not on file documented as of this encounter Visit Diagnoses Not on filedocumented in this encounter Care Teams Cordage Sales Representative Relationship Specialty Start Date End Date Vitaliy Solo MD [facility] [address] [place] [address] PCP - General Emergency Medicine 07/19/22 Laureen Dye APRN MEDICAL SCRIBE [address] [place] [address] Assigned Heart and Vascular Provider 05/27/21 01/17/23 Franny Shrestha PA-C [address] [place] [address] Physician Fish Filleter Urology 10/01/21 Franny Shrestha PA-C [address] [place] [address] Assigned Surgical Provider 12/29/21 11/22/22 documented as of this encounter
--- OUTSIDE RECORDS SUMMARY | 2023-07-30 13:37 | XMS_ITS | Encounter Summary ---
Author Name Unknown Organization [place] Address [address] [place] [address]. [place] [address] Care Team Providers Care Information Coder Name Role Phone Laureen Dye APRN HOUSEHOLD REFRIGERATOR MECHANIC Unavailable [phone] Franny Shrestha PA-C Unavailable Franny Shrestha PA-C Unavailable Vitaliy Solo MD Primary Care Provider Bryon Bell MD Unavailable Anyi Broderick MD Unavailable Aimee Mascorro MD Unavailable [phone] Franny Shrestha PA-C Unavailable Amanda Ibrahim MD Unavailable Encounter Details Date Type Department Care Team (Late st Contact Info) Description 10/11/2022 [facility] [place] [address] [facility] [address] [place] [address] Amanda Ibrahim MD [address] [facility] [address] [place] [address] Social History Tobacco Use Types [...] on filedocumented in this encounter Care Teams Information Coder Relationship Specialty Start Date End Date Vitaliy Solo MD [facility] [address] [place] [address] PCP - General Emergency Medicine 07/19/22 Laureen Dye, GUS HOUSEHOLD REFRIGERATOR MECHANIC [address] [place] [address] Assigned Heart and Vascular Provider 05/27/21 01/17/23 Franny Shrestha PA-C [address] [place] [address] Physician Mangle Roller Urology 10/01/21 Franny Shrestha PA-C [address] [place] [address] Assigned Surgical Provider 12/29/21 11/22/22 [place] [address] [place] [address] Family Medicine 08/27/22 [place] [address] [place] [address] Assigned PCP 08/31/22 Aimee Mascorro MD [facility] [address], [address] [place] [address] Assigned Surgical Provider 11/23/22 12/20/22 Franny Shrestha PA-C [address] [place] [address] Assigned Surgical Provider 12/21/22 Amanda Ibrahim MD [address] [facility] [address] [place] [id number] Assigned Heart and Vascular Provider 01/18/23 documented as of this encounter
--- OUTSIDE RECORDS SUMMARY | 2023-07-30 13:37 | XMS_ITS | Encounter Summary ---
Author Name Unknown Organization [place] Address [address] [place] [address]. [place] [address] Care Team Providers Care Rolling Machine Operator Name Role Phone Laureen Dye APRN FORENSIC SCIENCE EXAMINER Unavailable [phone] Franny Shrestha PA-C Unavailable Franny Shrestha PA-C Unavailable Anyi Broderick MD Unavailable Vitaliy Solo MD Primary Care Provider Bryon Bell MD Unavailable Anyi Broderick MD Unavailable Aimee Mascorro MD Unavailable Franny Shrestha PA-C Unavailable Amanda Ibrahim MD Unavailable [phone] Encounter Details Date Type Department Care Team (Late st Contact Info) Description 06/07/2022 [facility] [place] [facility] [address] [place] [address] Franny Shrestha PA-C [address] [facility] [address] [place], [place] [address] Social History Tobacco Use Types Packs/Day Years [...] on filedocumented in this encounter Care Teams Rolling Machine Operator Relationship Specialty Start Date End Date Vitaliy Solo MD [facility] [address] [place] [address] PCP - General Emergency Medicine 07/19/22 Laureen Dye, GUS FORENSIC SCIENCE EXAMINER [address] [place] [address] Assigned Heart and Vascular Provider 05/27/21 01/17/23 Franny Shrestha PA-C [address] [place] [address] Physician Mud Analysis Supervisor Urology 10/01/21 Franny Shrestha PA-C [address] [facility] [address] [place] [address] Assigned Surgical Provider 12/29/21 11/22/22 [place] [address] [place] [address] Assigned PCP 03/23/22 06/21/22 [place] [address] [place] [address] Family Medicine 08/27/22 [place] [address] [place] [address] Assigned PCP 08/31/22 Aimee Mascorro MD [facility] [address] , [address] [place] [address] Assigned Surgical Provider 11/23/22 12/20/22 Franny Shrestha PA-C [address] [place] [address] Assigned Surgical Provider 12/21/22 Amanda Ibrahim MD [address] [facility] [address] [place] [address] Assigned Heart and Vascular Provider 01/18/23 documented as of this encounter
--- OUTSIDE RECORDS SUMMARY | 2023-07-30 13:37 | XMS_ITS | Encounter Summary ---
Author Name Unknown Organization [place] Address [address] [place] [address] Care Team Providers Care Batch Mixer Name Role Phone Laureen Dye APRN PROCESS CONTROL SUPERVISOR Unavailable [phone] Franny Shrestha PA-C Unavailable [phone] Franny Shrestha PA-C Unavailable [phone] Vitaliy Solo MD Primary Care Provider Bryon Bell MD Unavailable [phone] Anyi Broderick MD Unavailable Encounter Details Date Type Department Care Team (Latest Contact Info) Description 10/17/2022 Travel Social History Tobacco Use Types Packs/Day [...] on filedocumented in this encounter Care Teams Batch Mixer Relationship Specialty Start Date End Date Vitaliy Solo MD [facility] [address] [place] [address] PCP - General Emergency Medicine 07/19/22 Laureen Dye, MARKETING ROTATION ASSOCIATE PROCESS CONTROL SUPERVISOR [address] [place] [address] Assigned Heart and Vascular Provider 05/27/21 01/17/23 Franny Shrestha PA-C [address] [place] [address] Physician Hog Ribber Urology 10/01/21 Franny Shrestha PA-C [address] [place] [address] Assigned Surgical Provider 12/29/21 11/22/22 [place] [address] [place] [address] Family Medicine 08/27/22 [place] [address] [place] [address] Assigned PCP 08/31/22 documented as of this encounter
--- OUTSIDE RECORDS SUMMARY | 2023-07-30 13:37 | XMS_ITS | Encounter Summary ---
Author Name Unknown Organization [place] Address [address] [place] [address]. [place] [address] Care Team Providers Care Electric Wheelchair Repairer Name Role Phone Laureen Dye APRN PIPELAYER Unavailable [phone] Franny Shrestha PA-C Unavailable Franny Shrestha PA-C Unavailable Vitaliy Solo MD Primary Care Provider Bryon Bell MD Unavailable [phone] Anyi Broderick MD Unavailable Aimee Mascorro MD Unavailable [phone] Franny Shrestha PA-C Unavailable [phone] Amanda Ibrahim MD Unavailable Encounter Details Date Type Department Care Team (Late st Contact Info) Description 08/01/2022 [facility] Medical Advice [facility] [place] [address] [facility] [address] [place] [address] Amanda Ibrahim MD [address] [facility] [address] [place] [address] Social History Tobacco Use Types [...] Coronavirus/COVID-19? No / Unsure 08/01/2022 11:05 AM COOK DINNER documented as of this encounter Plan of Treatment Not on file documented as of this encounter Visit Diagnoses Not on filedocumented in this encounter Care Teams Electric Wheelchair Repairer Relationship Specialty Start Date End Date Vitaliy Solo MD [facility] [address] [place] [address] PCP - General Emergency Medicine 07/19/22 Laureen Dye, NUTRITION EDUCATOR PIPELAYER [address] [place] [address] Assigned Heart and Vascular Provider 05/27/21 01/17/23 Franny Shrestha PA-C [address] [place] [address] Physician Financial Investigator Urology 10/01/21 Franny Shrestha PA-C [address] [place] [address] Assigned Surgical Provider 12/29/21 11/22/22 [place] [address] [place] [address] Family Medicine 08/27/22 [place] [address] [facility] [place] [address] Assigned PCP 08/31/22 Aimee Mascorro MD [facility] [address] , [address] [place] [address] Assigned Surgical Provider 11/23/22 12/20/22 Franny Shrestha PA-C [address] [place] [address] Assigned Surgical Provider 12/21/22 Amanda Ibrahim MD [address] [facility] [address] [place] [address] Assigned Heart and Vascular Provider 01/18/23 documented as of this encounter
--- OUTSIDE RECORDS SUMMARY | 2023-07-30 13:37 | XMS_ITS | Encounter Summary ---
Author Name Unknown Organization [place] Address [address] [place] [address]. [place] [address] Care Team Providers Care Physician Relations Representative Name Role Phone Laureen Dye APRN PUMP OPERATOR [employer]PRODUCTS Unavailable [phone] Franny Shrestha PA-C Unavailable Franny Shrestha PA-C Unavailable Vitaliy Solo MD Primary Care Provider Bryon Bell MD Unavailable Anyi Broderick MD Unavailable Aimee Mascorro MD Unavailable [phone] Franny Shrestha PA-C Unavailable Amanda Ibrahim MD Unavailable Encounter Details Date Type Department Care Team (Late st Contact Info) Description 10/07/2022 [facility] [place] Adv[facility] [place] [address] [facility] [address] [place] [address] Amanda Ibrahim MD [address] [facility] [address] [place] [address] Social History Tobacco Use Types [...] on filedocumented in this encounter Care Teams Physician Relations Representative Relationship Specialty Start Date End Date Vitaliy Solo MD [facility] [address] [place] [address] PCP - General Emergency Medicine 07/19/22 Laureen Dye, GUS PUMP OPERATOR [employer] [address] [place] [address] Assigned Heart and Vascular Provider 05/27/21 01/17/23 Franny Shrestha PA-C [address] [place] [address] Physician Station Air Traffic Control Specialist Urology 10/01/21 Franny Shrestha PA-C [address] [place] [address] Assigned Surgical Provider 12/29/21 11/22/22 [place] [address] [place] [address] Family Medicine 08/27/22 [place] [address] [place] [address] Assigned PCP 08/31/22 Aimee Mascorro MD [facility] [address], [address] [place] [address] Assigned Surgical Provider 11/23/22 12/20/22 Franny Shrestha PA-C [address] [place] [address] Assigned Surgical Provider 12/21/22 Amanda Ibrahim MD [address] [facility] [address] [place] [address] Assigned Heart and Vascular Provider 01/18/23 documented as of this encounter
--- OUTSIDE RECORDS SUMMARY | 2023-07-30 13:37 | XMS_ITS | Encounter Summary ---
Author Name Unknown Organization [facility] Address [address] [place] [address] Care Team Providers Care Conductor/Brakeman Name Role Phone Page, Nikki Vega RN Unavailable Unavailable Bryon Bell MD Primary Care Provider [phone] Bryon Bell MD Unavailable [phone] Laureen Dye APRN DIRECTOR OF SALES SUPPORT Unavailable [phone] Franny Shrestha PA-C Unavailable Franny Shrestha PA-C Unavailable Anyi Broderick MD Unavailable Bryon Bell MD Unavailable [phone] Anyi Broderick MD Unavailable Vitaliy Solo MD Primary Care Provider Bryon Bell MD Unavailable [phone] Anyi Broderick MD Unavailable Aimee Mascorro MD Unavailable [phone] Franny Shrestha PA-C Unavailable Amanda Ibrahim MD Unavailable [phone] Reason for Visit * Reason Onset Date Comments Outreach 10/10/2021 PAL Encounter Details Date Type Department Care Team (Late st Contact Info) Description 10/10/2021 [facility] Medical [facility] [address] [place] [phone] [place] [address] [place] [address] Outreach (PAL) Social History Tobacco Use Types Packs/Day Years Used Date Smoking Tobacco: Never Smokeless Tobacco: Never Alcohol Use Standard Drinks/Week Comments Yes 0 (1 standard drink = 0.6 oz pur e alcohol) occ PHQ-2 Answer Date Recorded PHQ-2 Score 0 09/06/2021 Sex and Gender Information Value Date Recorded Sex Assigned at Male 03/03/2021 2:33 PM CDT Gender Identity Male 03/03/2021 2:33 PM CDT Sexual Orientation Straight 03/03/2021 2: 33 PM CDT COVID-19 Exposure Response Date Recorded In the last month, have you been in contact with someone who was confirmed or suspected to have Coronavirus / COVID-19? Unable to assess 10/01/2021 9:50 AM CDT documented as of this encounter Plan of Treatment Not on file documented as of this encounter Visit Diagnoses Not on filedocumented in this encounter Care Teams Conductor/Brakeman Relationship Specialty Start Date End Date Bryon Bell MD PCP - General Family Medicine 03/06/21 05/05/22 Vitaliy Solo MD [facility] [address] [place] [address] PCP - General Emergency Medicine 07/19/22 Nikki Pierre, SHERMAN Personal Advocate & Liaison (PAL) Family Medicine 03/06/21 03/25/22 [place] [address] [place] [address] Assigned PCP 03/11/21 01/18/22 Laureen Dye APRN DIRECTOR OF SALES SUPPORT [address] [place] [address] Assigned Heart and Vascular Provider 05/27/21 01/17/23 Franny Shrestha PA-C [address] [place] [address] Physician Superintendent Distribution Urology 10/01/21 Franny Shrestha PA-C [address] [place] [address] Assigned Surgical Provider 12/29/21 11/22/22 [place] [address] [place] [address] Assigned PCP 01/19/22 03/08/22 [place] [address] [place] [address] Assigned PCP 03/09/22 03/22/22 [place] [address] [place] [address] Assigned PCP 03/23/22 06/21/22 [place] [address] [place] [address] Family Medicine 08/27/22 [place] [address] [place] [address] Assigned PCP 08/31/22 Aimee Mascorro MD [facility] [address], [address] [place] [address] Assigned Surgical Provider 11/23/22 12/20/22 Franny Shrestha PA-C [address] [place] [address] Assigned Surgical Provider 12/21/22 Amanda Ibrahim MD [address] [facility] [address] [place] [address] Assigned Heart and Vascular Provider 01/18/23 documented as of this encounter
--- OUTSIDE RECORDS SUMMARY | 2023-07-30 13:37 | XMS_ITS | Encounter Summary ---
Author Name Unknown Organization [place] Address [address] [place] [address] Care Team Providers Care Drug Abuse Worker Name Role Phone Page, Nikki Vega RN Unavailable Unavailable Bryon Bell MD Primary Care Provider [phone] Bryon Bell MD Unavailable [phone] Laureen Dye APRN WRAP TURNER Unavailable [phone] Franny Shretsha PA-C Unavailable Franny Shrestha PA-C Unavailable Anyi Broderick MD Unavailable Bryon Bell MD Unavailable Anyi Broderick MD Unavailable Vitaliy Solo MD Primary Care Provider Bryon Bell MD Unavailable [phone] Anyi Broderick MD Unavailable Aimee Mascorro MD Unavailable [phone] Franny Shrestha PA-C Unavailable Amanda Ibrahim MD Unavailable [phone] Encounter Details Date Type Department Care Team (Late st Contact Info) Description 12/07/2021 [facility] [address] [place] [address] Franny Shrestha PADayan [address] [place] [address] Social History Tobacco Use Types Packs/Day Years [...] on filedocumented in this encounter Care Teams Drug Abuse Worker Relationship Specialty Start Date End Date Bryon Bell MD PCP - General Family Medicine 03/06/21 05/05/22 Vitaliy Solo MD [facility] [place] [address] [place] [address] PCP - General Emergency Medicine 07/19/22 Nikki Pierre, SHERMAN Personal Advocate & Liaison (PAL) Family Medicine 03/06/21 03/25/22 [place] [address] [place] [address] Assigned PCP 03/11/21 01/18/22 Laureen Dye APRN WRAP TURNER [address] [place] [address] Assigned Heart and Vascular Provider 05/27/21 01/17/23 Franny Shrestha PA-C [address] [place] [address] Physician Sinter Press Operator Urology 10/01/21 Franny Shrestha PA-C [address] [place] [address] Assigned Surgical Provider 12/29/21 11/22/22 [place] [address] [place] [address] Assigned PCP 01/19/22 03/08/22 [place] [address] [place] [address] Assigned PCP 03/09/22 03/22/22 [place] [address] [place] [address] Assigned PCP 03/23/22 06/21/22 [place] [address] [place] [address] Family Medicine 08/27/22 [place] [address] [place] [address] Assigned PCP 08/31/22 Aimee Mascorro MD [facility] [address] [place] [address] Assigned Surgical Provider 11/23/22 12/20/22 Franny Shrestha PA-C [address] [place] [address] Assigned Surgical Provider 12/21/22 Amanda Ibrahim MD [address] [place] [address] Assigned Heart and Vascular Provider 01/18/23 documented as of this encounter
--- OUTSIDE RECORDS SUMMARY | 2023-07-30 13:38 | XMS_ITS | Encounter Summary ---
Author Name Unknown Organization [place] Address [address] [place] [address] Care Team Providers Care Nickel Plater Name Role Phone Page, Nikki Vega RN Unavailable Unavailable Bryon Bell MD Primary Care Provider [phone] Bryon Bell MD Unavailable [phone] Amanda Ibrahim MD Unavailable [phone] Laureen Dye APRN ROBOTIC MAINTENANCE TECHNICIAN Unavailable [phone] Franny Shrestha PA-C Unavailable Franny Shrestha PA-C Unavailable Anyi Broderick MD Unavailable Bryon Bell MD Unavailable [phone] Anyi Broderick MD Unavailable Vitaliy Solo MD Primary Care Provider Bryon Bell MD Unavailable Anyi Broderick MD Unavailable Aimee Mascorro MD Unavailable [phone] Franny Shrestha PA-C Unavailable Amanda Ibrahim MD Unavailable [phone] Encounter Details Date Type Department Care Team (Late st Contact Info) Description 05/14/2021 [facility] Medical Advice [facility] [address] [facility] [address] [place] [phone] Amanda Ibrahim MD [address] [facility] [address] [place] [address] Social History Tobacco Use Types Packs/Day Years Used Date Smoking Tobacco: Never Smokeless Tobacco: Never Alcohol Use Standard Drinks/Week Comments Yes 0 (1 standard drink = 0.6 oz pur e alcohol) one or two beers a day PHQ-2 Answer Date Recorded PHQ-2 Score 0 03/29/2021 Sex and Gender Information Value Date Recorded Sex Assigned at Male 03/03/2021 2:33 PM CDT Gender Identity Male 03/03/2021 2:33 PM CDT Sexual Orientation Straight 03/03/2021 2: 33 PM CDT COVID-19 Exposure Response Date Recorded In the last month, have you been in contact with someone who was confirmed or suspected to have Coronavirus / COVID-19? No / Unsure 05/08/2021 11:17 AM CDT documented as of this encounter Plan of Treatment Not on file documented as of this encounter Visit Diagnoses Not on filedocumented in this encounter Care Teams Nickel Plater Relationship Specialty Start Date End Date Bryon Bell MD PCP - General Family Medicine 03/06/21 05/05/22 Vitaliy Solo MD [facility] [address] [place] [address] PCP - General Emergency Medicine 07/19/22 Nikki Pierre, RN Personal Advocate & Liaison (PAL) Family Medicine 03/06/21 03/25/22 [place] [address] [place] [address] Assigned PCP 03/11/21 01/18/22 Amanda Ibrahim MD [address] [place] [address] Assigned Heart and Vascular Provider 04/22/21 05/26/21 Hardik Laureen GUS Bergman ROBOTIC MAINTENANCE TECHNICIAN [address] [place] [address] Assigned Heart and Vascular Provider 05/27/21 01/17/23 Franny Shrestha PA-C [address] [place] [address] Physician White Sugar Supervisor Urology 10/01/21 Franny Shrestha PA-C [address] [place] [address] Assigned Surgical Provider 12/29/21 11/22/22 [place] [address] [place] [address] Assigned PCP 01/19/22 03/08/22 [place] [address] [place] [address] Assigned PCP 03/09/22 03/22/22 [place] [address] [place] [address] Assigned PCP 03/23/22 06/21/22 [place] [address] [address] [place], [place] [address] Family Medicine 08/27/22 [place] [address] [place] [address] Assigned PCP 08/31/22 Aimee Mascorro MD [facility] [address] [place] [address] Assigned Surgical Provider 11/23/22 12/20/22 Franny Shrestha PA-C [address] [place] [address] Assigned Surgical Provider 12/21/22 Amanda Ibrahim MD [address] [facility] [address] [place] [address] Assigned Heart and Vascular Provider 01/18/23 documented as of this encounter
--- OUTSIDE RECORDS SUMMARY | 2023-07-30 13:38 | XMS_ITS | Encounter Summary ---
Author Name Unknown Organization [facility] Address [address] [place] [address] Care Team Providers Care Oncology Radiation Physician Name Role Phone Page, Nikki Vega RN Unavailable Unavailable Bryon Bell MD Primary Care Provider + [phone] Bryon Bell MD Unavailable [phone] Amanda Ibrahim MD Unavailable [phone] Laureen Dye APRN ENFORCEMENT SAFETY OFFICER Unavailable +[phone] Franny Shrestha PA-C Unavailable [phone] Franny Shrestha PA-C Unavailable [phone] Anyi Broderick MD Unavailable Bryon Bell MD Unavailable Anyi Broderick MD Unavailable Vitaliy Solo MD Primary Care Provider Bryon Bell MD Unavailable [phone] Anyi Broderick MD Unavailable Aimee Mascorro MD Unavailable [phone] Franny Shrestha PA-C Unavailable [phone] Amanda Ibrahim MD Unavailable [phone] Reason for Visit * Reason Onset Date Comments Outreach 05/14/2021 PAL Encounter Details Date Type Department Care Team (Late st Contact Info) Description 05/14/2021 [facility] [id number] [place] [phone] Nikki Pierre, RN Outreach ([facility] ) Social History Tobacco Use Types Packs/Day Years [...] on filedocumented in this encounter Care Teams Oncology Radiation Physician Relationship Specialty Start Date End Date Bryon Bell MD PCP - General Family Medicine 03/06/21 05/05/22 Vitaliy Solo MD [facility] & [address] [address] PCP - General Emergency Medicine 07/19/22 Nikki Pierre RN Personal Advocate & Liaison ([facility]) Family Medicine 03/06/21 03/25/22 [place] [address] [place] [address] Assigned PCP 03/11/21 01/18/22 Amanda Ibrahim MD [address] [address] Assigned Heart and Vascular Provider 04/22/21 05/26/21 Laureen Dye APRN ENFORCEMENT SAFETY OFFICER [address] [place] [address] Assigned Heart and Vascular Provider 05/27/21 01/17/23 Franny Shrestha PA-C [address] [place] [address] Physician Shoe Stainer Urology 10/01/21 Franny Shrestha PA-C [address] [place] [address] Assigned Surgical Provider 12/29/21 11/22/22 [place] [address] [place] [address] Assigned PCP 01/19/22 03/08/22 [place] [address] [place] [address] Assigned PCP 03/09/22 03/22/22 [place] [address] [place] [address] Assigned PCP 03/23/22 06/21/22 [place] [address] [place] [address] Family Medicine 08/27/22 [place] [address] [place] [address] Assigned PCP 08/31/22 Aimee Mascorro MD [facility] [address], [address] [place] [address] Assigned Surgical Provider 11/23/22 12/20/22 Franny Shrestha PA-C [address] [place] [address] Assigned Surgical Provider 12/21/22 Amanda Ibrahim MD [address] [facility] [address] [place] [address] Assigned Heart and Vascular Provider 01/18/23 documented as of this encounter
--- OUTSIDE RECORDS SUMMARY | 2023-07-30 13:38 | XMS_ITS | Encounter Summary ---
Author Name Unknown Organization [facility] Address [address] [place] [address] Care Team Providers Care Lpn Rn Hospice Name Role Phone Page, Nikki Vega RN Unavailable Unavailable Bryon Bell MD Primary Care Provider + [phone] Bryon Bell MD Unavailable [phone] Amanda Ibrahim MD Unavailable [phone] Laureen Dye APRN SENIOR FRONT END ENGINEER Unavailable [phone] Franny Shrestha PA-C Unavailable [phone] Franny Shrestha PA-C Unavailable Anyi Broderick MD Unavailable Bryon Bell MD Unavailable Anyi Broderick MD Unavailable Vitaliy Solo MD Primary Care Provider Bryon Bell MD Unavailable [phone] Anyi Broderick MD Unavailable Aimee Mascorro MD Unavailable [phone] Franny Shrestha PA-C Unavailable Amanda Ibrahim MD Unavailable [phone] Reason for Visit * Reason Onset Date Comments MyChart Communication 05/03/2021 Encounter Details Date Type Department Care Team ([facility] st Contact Info) Description 05/03/2021 [facility] [address] [address] [place] [address] [place] [address] MyChart Communication Social History Tobacco Use Types Packs/Day Years [...] have Coronavirus / COVID-19? No / Unsure 04/17/2021 12:01 PM CDT documented as of this encounter Plan of Treatment Not on file documented as of this encounter Visit Diagnoses Not on filedocumented in this encounter Care Teams Lpn Rn Hospice Relationship Specialty Start Date End Date Bryon Bell MD PCP - General Family Medicine 03/06/21 05/05/22 Vitaliy Solo MD [facility] [address] [place] [address] PCP - General Emergency Medicine 07/19/22 Nikki Pierre RN Personal Advocate & Liaison (PAL) Family Medicine 03/06/21 03/25/22 [place] [address] [place] [address] Assigned PCP 03/11/21 01/18/22 Amanda Ibrahim MD [address] [place] [address] Assigned Heart and Vascular Provider 04/22/21 05/26/21 Hardik Laureen Madalyn, SORTING COWS WORKER SENIOR FRONT END ENGINEER [address] [place] [address] Assigned Heart and Vascular Provider 05/27/21 01/17/23 Franny Shrestha PA-C [address] [place] [address] Physician Supply Chain Planner Urology 10/01/21 Franny Shrestha PA-C [address] [place] [address] Assigned Surgical Provider 12/29/21 11/22/22 [place] [address] [place] [address] Assigned PCP 01/19/22 03/08/22 [place] [address] [place] [address] Assigned PCP 03/09/22 03/22/22 [place] [address] [place] [address] Assigned PCP 03/23/22 06/21/22 Bryon Bell [place] [address] [place] [address] Family Medicine 08/27/22 [place] [address] [address] [place] [address] Assigned PCP 08/31/22 Aimee Mascorro MD [facility] [address] , [address] [place] [address] Assigned Surgical Provider 11/23/22 12/20/22 Franny Shrestha PA-C [address] [place] [address] Assigned Surgical Provider 12/21/22 Amanda Ibrahim MD [address] [facility] [address] [place] [address] Assigned Heart and Vascular Provider 01/18/23 documented as of this encounter
--- OUTSIDE RECORDS SUMMARY | 2023-07-30 13:38 | XMS_ITS | Encounter Summary ---
Author Name Unknown Organization [facility] Address [address] [place] [address] Care Team Providers Care Patented Hogshead Assembler Name Role Phone Page, Nikki Vega RN Unavailable Unavailable Bryon Bell MD Primary Care Provider + [phone] Bryon Bell MD Unavailable [phone] Laureen Dye APRN VOCATIONAL ADVISER Unavailable [phone] Franny Shrestha PA-C Unavailable Franny Shrestha PA-C Unavailable Anyi Broderick MD Unavailable Bryon Bell MD Unavailable [phone] Anyi Broderick MD Unavailable Vitaliy Solo MD Primary Care Provider Bryon Bell MD Unavailable [phone] Anyi Broderick MD Unavailable Aimee Mascorro MD Unavailable [phone] Franny Shrestha PA-C Unavailable Amanda Ibrahim MD Unavailable [phone] Encounter Details Date Type Department Care Team (Late st Contact Info) Description 09/11/2021 [facility] [id number] [place] [phone] Nikki Pierre, RN Social History Tobacco Use Types Packs/Day [...] have Coronavirus / COVID-19? No / Unsure 09/13/2021 3:04 PM ADVERTISING COORDINATOR documented as of this encounter Plan of Treatment Not on file documented as of this encounter Visit Diagnoses Not on filedocumented in this encounter Care Teams Patented Hogshead Assembler Relationship Specialty Start Date End Date Bryon Bell MD PCP - General Family Medicine 03/06/21 05/05/22 Vitaliy Solo MD [facility] [address] [place] [address] PCP - General Emergency Medicine 07/19/22 Nikki Pierre, RN Personal Advocate & Liaison (PAL) Family Medicine 03/06/21 03/25/22 [place] [address] [place] [address] Assigned PCP 03/11/21 01/18/22 Laureen Dye APRN VOCATIONAL ADVISER [address] [place] [address] Assigned Heart and Vascular Provider 05/27/21 01/17/23 Franny Shrestha PA-C [address] [place] [address] Physician Snailer Urology 10/01/21 Franny Shrestha PA-C [address] [place] [address] Assigned Surgical Provider 12/29/21 11/22/22 [place] [address] [place] [address] Assigned PCP 01/19/22 03/08/22 [place] [address] [place] [address] Assigned PCP 03/09/22 03/22/22 [place] [address] [place] [address] Assigned PCP 03/23/22 06/21/22 [place] [address] [place] [address] Family Medicine 08/27/22 [place] [address] [place] [address] Assigned PCP 08/31/22 Aimee Mascorro MD [facility] [address] [facility] [place] [address] Assigned Surgical Provider 11/23/22 12/20/22 Franny Shrestha PA-C [address] [place] [address] Assigned Surgical Provider 12/21/22 Amanda Ibrahim MD [address] [place] [address] Assigned Heart and Vascular Provider 01/18/23 documented as of this encounter
--- OUTSIDE RECORDS SUMMARY | 2023-07-30 13:38 | XMS_ITS | Encounter Summary ---
Author Name Unknown Organization [facility] Address [address] [place] [address] Care Team Providers Care Sheep Sticker Name Role Phone Page, Nikki Vega RN Unavailable Unavailable Bryon Bell MD Primary Care Provider + [phone] Bryon Bell MD Unavailable [phone] Laureen Dye APRN CROWN ASSEMBLY MACHINE OPERATOR Unavailable [phone] Franny Shrestha PA-C Unavailable Franny Shrestha PA-C Unavailable Anyi Broderick MD Unavailable Bryon Bell MD Unavailable Anyi Broderick MD Unavailable Vitaliy Solo MD Primary Care Provider Bryon Bell MD Unavailable [phone] Anyi Broderick MD Unavailable Aimee Mascorro MD Unavailable [phone] Franny Shrestha PA-C Unavailable Amanda Ibrahim MD Unavailable [phone] Encounter Details Date Type Department Care Team (Late st Contact Info) Description 09/27/2021 [facility] [address] [place] [phone] [place] [address] [place] [address] Social History Tobacco Use Types Packs/Day Years [...] have Coronavirus / COVID-19? No / Unsure 09/21/2021 10:04 AM CDT documented as of this encounter Plan of Treatment Not on file documented as of this encounter Visit Diagnoses Not on filedocumented in this encounter Care Teams Sheep Sticker Relationship Specialty Start Date End Date Bryon Bell MD PCP - General Family Medicine 03/06/21 05/05/22 Vitaliy Solo MD [facility] [address] [place] [address] PCP - General Emergency Medicine 07/19/22 Nikki Pierre, SHERMAN Personal Advocate & Liaison (PAL) Family Medicine 03/06/21 03/25/22 [place] [address] [place] [address] Assigned PCP 03/11/21 01/18/22 Laureen Dye APRN CROWN ASSEMBLY MACHINE OPERATOR [address] [place] [address] Assigned Heart and Vascular Provider 05/27/21 01/17/23 Franny Shrestha PA-C [address] [place] [address] Physician Industrial Engineering Intern Urology 10/01/21 Franny Shrestha PA-C [address] [place] [address] Assigned Surgical Provider 12/29/21 11/22/22 [place] [address] [place] [address] Assigned PCP 01/19/22 03/08/22 [place] [address] [place] [address] Assigned PCP 03/09/22 03/22/22 [place] [address] [place] [address] Assigned PCP 03/23/22 06/21/22 [place] [address] [place] [address] Family Medicine 08/27/22 [place] [address] [place] [address] Assigned PCP 08/31/22 Aimee Mascorro MD [facility] [address] [place] [address] Assigned Surgical Provider 11/23/22 12/20/22 Franny Shrestha PA-C [address] [place] [address] Assigned Surgical Provider 12/21/22 Amanda Ibrahim MD [address] [facility] [address] [place] [address] Assigned Heart and Vascular Provider 01/18/23 documented as of this encounter
--- OUTSIDE RECORDS SUMMARY | 2023-07-30 13:38 | XMS_ITS | Encounter Summary ---
Author Name Unknown Organization [facility] Address [address] [place] [address] Care Team Providers Care Territory Sales Manager Medical Name Role Phone Page, Nikki Vega RN Unavailable Unavailable Bryon Bell MD Primary Care Provider + [phone] Bryon Bell MD Unavailable [phone] Laureen Dye APRN SENIOR ACCOUNTS PAYABLE SPECIALIST Unavailable [phone] Franny Shrestha PA-C Unavailable [phone] Franny Shrestha PA-C Unavailable [phone] Anyi Broderick MD Unavailable Bryon Bell MD Unavailable [phone] Anyi Broderick MD Unavailable Vitaliy Solo MD Primary Care Provider Bryon Bell MD Unavailable [phone] Anyi Broderick MD Unavailable Aimee Mascorro MD Unavailable [phone] Franny Shrestha PA-C Unavailable Amanda Ibrahim MD Unavailable [phone] Reason for Visit * Reason Onset Date Comments MyChart Communication 06/06/2021 Encounter Details Date Type Department Care Team (Late st Contact Info) Description 06/06/2021 [facility] [phone] [place] [address] [facility] [place] [address] MyChart Communication Social History Tobacco Use Types [...] have Coronavirus / COVID-19? No / Unsure 06/08/2021 1:05 PM FAIRING WORKER documented as of this encounter Plan of Treatment Not on file documented as of this encounter Visit Diagnoses Not on filedocumented in this encounter Care Teams Territory Sales Manager Medical Relationship Specialty Start Date End Date Bryon Bell MD PCP - General Family Medicine 03/06/21 05/05/22 Vitaliy Solo MD [facility] [address] [place] [address] PCP - General Emergency Medicine 07/19/22 Nikki Pierre, SHERMAN Personal Advocate & Liaison (PAL) Family Medicine 03/06/21 03/25/22 [place] [address] [place] [address] Assigned PCP 03/11/21 01/18/22 Laureen Dye APRN SENIOR ACCOUNTS PAYABLE SPECIALIST [address] [place] [address] Assigned Heart and Vascular Provider 05/27/21 01/17/23 Franny Shrestha PA-C [address] [place] [address] Physician Behavioral Health Case Manager Urology 10/01/21 Franny Shrestha PA-C [address] [place] [address] Assigned Surgical Provider 12/29/21 11/22/22 [place] [address] [place] [address] Assigned PCP 01/19/22 03/08/22 [place] [address] [place] [address] Assigned PCP 03/09/22 03/22/22 [place] [address] [place] [address] Assigned PCP 03/23/22 06/21/22 [place] [address] [place] [address] Family Medicine 08/27/22 [place] [address] [place] [address] Assigned PCP 08/31/[address] [facility] [address] [place] [address] Assigned Surgical Provider 11/23/22 12/20/22 Franny Shrestha PA-C [address] [place] [address] Assigned Surgical Provider 12/21/22 Amanda Ibrahim MD [address] [facility] [address] [place] [address] Assigned Heart and Vascular Provider 01/18/23 documented as of this encounter
--- OUTSIDE RECORDS SUMMARY | 2023-07-30 13:38 | XMS_ITS | Encounter Summary ---
Author Name Unknown Organization [facility] Address [address] [place] [address] Care Team Providers Care Traffic Expert Name Role Phone Page, Nikki Vega RN Unavailable Unavailable Bryon Bell MD Primary Care Provider + [phone] Bryon Bell MD Unavailable [phone] Amanda Ibrahim MD Unavailable [phone] Laureen Dye APRN CYLINDER PRESS OPERATOR HELPER Unavailable [phone] Franny Shrestha PA-C Unavailable [phone] Franny Shrestha PA-C Unavailable [phone] Anyi Broderick MD Unavailable Bryon Bell MD Unavailable Anyi Broderick MD Unavailable Vitaliy Solo MD Primary Care Provider Bryon Bell MD Unavailable Anyi Broderick MD Unavailable Aimee Mascorro MD Unavailable [phone] Franny Shrestha PA-C Unavailable Amanda Ibrahim MD Unavailable [phone] Encounter Details Date Type Department Care Team (Late st Contact Info) Description 04/19/2021 [facility] [address] [facility] [address] [place] [id number] Amanda Ibrahim MD [address] [facility] [address] [place] [address] Social History Tobacco Use Types Packs/Day Years [...] on filedocumented in this encounter Care Teams Traffic Expert Relationship Specialty Start Date End Date Bryon Bell MD PCP - General Family Medicine 03/06/21 05/05/22 Vitaliy Solo MD [facility] [address] [place] [address] PCP - General Emergency Medicine 07/19/22 Nikki Pierre, RN Personal Advocate & Liaison (PAL) Family Medicine 03/06/21 03/25/22 [place] [address] [place] [address] Assigned PCP 03/11/21 01/18/22 Amanda Ibrahim MD [address] [place] [address] Assigned Heart and Vascular Provider 04/22/21 05/26/21 Hardik Laureen GUS Bergman CYLINDER PRESS OPERATOR HELPER [address] [place] [address] Assigned Heart and Vascular Provider 05/27/21 01/17/23 Franny Shrestha PA-C [address] [place] [address] Physician Oyster Sorter Urology 10/01/21 Franny Shrestha PA-C [address] [place] [address] Assigned Surgical Provider 12/29/21 11/22/22 [place] [address] [place] [address] Assigned PCP 01/19/22 03/08/22 [place] [address] [place] [address] Assigned PCP 03/09/22 03/22/22 [place] [address] [place] [address] Assigned PCP 03/23/22 06/21/22 [place] [address] [address] [place], [place] [address] Family Medicine 08/27/22 [place] [address] [place] [address] Assigned PCP 08/31/22 Aimee Mascorro MD [facility] [address] [place] [address] Assigned Surgical Provider 11/23/22 12/20/22 Franny Shrestha PA-C [address] [place] [address] Assigned Surgical Provider 12/21/22 Amanda Ibrahim MD [address] [facility] [address] [place] [address] Assigned Heart and Vascular Provider 01/18/23 documented as of this encounter
--- OUTSIDE RECORDS SUMMARY | 2023-07-30 13:38 | XMS_ITS | Encounter Summary ---
Author Name Unknown Organization [place] Address [address] [place] [address] Care Team Providers Care Ticket Printer Name Role Phone Page, Nikki Vega RN Unavailable Unavailable Bryon Bell MD Primary Care Provider + [phone] Bryon Bell MD Unavailable [phone] Amanda Ibrahim MD Unavailable [phone] Laureen Dye APRN RADIO STATION AUDIO ENGINEER Unavailable [phone] Franny Shrestha PA-C Unavailable Franny Shrestha PA-C Unavailable Anyi Broderick MD Unavailable Bryon Bell MD Unavailable Anyi Broderick MD Unavailable Vitaliy Solo MD Primary Care Provider Bryon Bell MD Unavailable Anyi Broderick MD Unavailable Aimee Mascorro MD Unavailable [phone] Franny Shrestha PA-C Unavailable [phone] Amanda Ibrahim MD Unavailable [phone] Encounter Details Date Type Department Care Team (Late st Contact Info) Description 04/18/2021 [facility] [address] [place] [phone] [place] [address] [facility] [place] [address] Social History Tobacco Use Types Packs/Day Years [...] on filedocumented in this encounter Care Teams Ticket Printer Relationship Specialty Start Date End Date Bryon Bell MD PCP - General Family Medicine 03/06/21 05/05/22 Vitaliy Solo MD [facility] [address] [place] [address] PCP - General Emergency Medicine 07/19/22 Nikki Pierre, RN Personal Advocate & Liaison (PAL) Family Medicine 03/06/21 03/25/22 [place] [address] [place] [address] Assigned PCP 03/11/21 01/18/22 Amanda Ibrahim MD [address] [place] [address] Assigned Heart and Vascular Provider 04/22/21 05/26/21 Dye Laureen Bergman CHIEF MEDICAL DIRECTOR RADIO STATION AUDIO ENGINEER [address] [place] [address] Assigned Heart and Vascular Provider 05/27/21 01/17/23 Franny Shrestha PA-C [address] [place] [address] Physician Brown Stock Washer Urology 10/01/21 Franny Shrestha PA-C [address] [place] [address] Assigned Surgical Provider 12/29/21 11/22/22 [place] [address] [place] [address] Assigned PCP 01/19/22 03/08/22 [place] [address] [place] [address] Assigned PCP 03/09/22 03/22/22 [place] [address] [place] [address] Assigned PCP 03/23/22 06/21/22 [place] [address] [place] [address] Family Medicine 08/27/22 [place] [address] [place] [address] Assigned PCP 08/31/22 Aimee Mascorro MD [facility] [address] , [address] [place] [address] Assigned Surgical Provider 11/23/22 12/20/22 Franny Shrestha PA-C [address] [place] [address] Assigned Surgical Provider 12/21/22 Amanda Ibrahim MD [address] [facility] [address] [place] [address] Assigned Heart and Vascular Provider 01/18/23 documented as of this encounter
--- OUTSIDE RECORDS SUMMARY | 2023-07-30 13:38 | XMS_ITS | Encounter Summary ---
Author Name Unknown Organization [place] Address [address] [place] [address] Care Team Providers Care Injection Molder Name Role Phone Page, Nikki Vega RN Unavailable Unavailable Bryon Bell MD Primary Care Provider + [phone] Bryon Bell MD Unavailable [phone] Amanda Ibrahim MD Unavailable [phone] Laureen Dye APRN CONVENTION SERVICES MANAGER Unavailable [phone] Franny Shrestha PA-C Unavailable Franny Shrestha PA-C Unavailable Anyi Broderick MD Unavailable Bryon Bell MD Unavailable Anyi Broderick MD Unavailable Vitaliy Solo MD Primary Care Provider Bryon Bell MD Unavailable Anyi Broderick MD Unavailable Aimee Mascorro MD Unavailable [phone] Franny Shrestha PA-C Unavailable Amanda Ibrahim MD Unavailable [phone] Encounter Details Date Type Department Care Team (Late st Contact Info) Description 05/03/2021 [facility] [address] [facility] [address] [place] [phone] Amanda Ibrahim MD 1571 [facility] [address] [place] [id number] Social History Tobacco Use Types Packs/Day Years [...] on filedocumented in this encounter Care Teams Injection Molder Relationship Specialty Start Date End Date Bryon Bell MD PCP - General Family Medicine 03/06/21 05/05/22 Vitaliy Solo MD [facility] [address] [place] [address] PCP - General Emergency Medicine 07/19/22 Nikki Pierre, RN Personal Advocate & Liaison (PAL) Family Medicine 03/06/21 03/25/22 [place] [address] [place] [address] Assigned PCP 03/11/21 01/18/22 Amanda Ibrahim MD [address] [place] [address] Assigned Heart and Vascular Provider 04/22/21 05/26/21 Hardki Alureen GUS Bergman CONVENTION SERVICES MANAGER [address] [place] [address] Assigned Heart and Vascular Provider 05/27/21 01/17/23 Franny Shrestha PA-C [address] [place] [address] Physician Banking Management Consulting Manager Urology 10/01/21 Franny Shrestha PA-C [address] [place] 177205 Assigned Surgical Provider 12/29/21 11/22/22 [place] [address] [place] [address] Assigned PCP 01/19/22 03/08/22 [place] [address] [place] [address] Assigned PCP 03/09/22 03/22/22 [place] [address] [place] [address] Assigned PCP 03/23/22 06/21/22 [place] [address] [address] [place], [place] [address] Family Medicine 08/27/22 [place] [address] [place] [address] Assigned PCP 08/31/22 Aimee Mascorro MD [facility] [address] [place] [id number] Assigned Surgical Provider 11/23/22 12/20/22 Franny Shrestha PA-C [address] [place] [address] Assigned Surgical Provider 12/21/22 Amanda Ibrahim MD [address] [facility] [address] [place] [address] Assigned Heart and Vascular Provider 01/18/23 documented as of this encounter
--- OUTSIDE RECORDS SUMMARY | 2023-07-30 13:38 | XMS_ITS | Encounter Summary ---
Author Name Unknown Organization [place] Address [address] [place] [address] Care Team Providers Care Layout Designer Name Role Phone Page, Nikki Vega RN Unavailable Unavailable Bryon Bell MD Primary Care Provider + [phone] Bryon Bell MD Unavailable [phone] Laureen Dye APRN HELPDESK MANAGER Unavailable [phone] Franny Shrestha PA-C Unavailable Franny Shrestha PA-C Unavailable Anyi Broderick MD Unavailable Bryon Bell MD Unavailable Anyi Broderick MD Unavailable Vitaliy Solo MD Primary Care Provider Bryon Bell MD Unavailable [phone] Anyi Broderick MD Unavailable Aimee Mascorro MD Unavailable [phone] Franny Shrestha PA-C Unavailable [phone] Amanda Ibrahim MD Unavailable [phone] Reason for Visit * Reason Onset Date Comments Call to schedule test 08/21/2021 orders nee d to be placed Encounter Details Date Type Department Care Team (Late st Contact Info) Description 08/21/2021 Telephone [facility] [address] [facility] [address] [place] [phone] Laureen Dye APRN HELPDESK MANAGER [address] [facility] [address] [place] [address] Call to schedule test (orders need to be placed) Social History Tobacco Use Types Packs/Day Years [...] encounter Miscellaneous Notes * Telephone Encounter - [place] Chapa - 08/21/2021 3:18 PM CST [facility] Phone Message May a detailed message be left on voicemail: yes Reason for Call: Appointment Intake Referring Provider Name: Laureen Dye Diagnosis and/or Symptoms: Secondary cardiomyopathy (H) Benign essential hypertension Action Taken: Message routed to: Other: adult cardiology Travel Screening: Not Applicable Please place orders per dictation so pt can schedule appts IC INFORMATION OFFICER documented in this encounter Plan of Treatment Not on file documented as of this encounter Visit Diagnoses Not on filedocumented in this encounter Care Teams Layout Designer Relationship Specialty Start Date End Date Bryon Bell MD PCP - General Family Medicine 03/06/21 05/05/22 Vitaliy Solo MD [facility] [address] [place] [address] PCP - General Emergency Medicine 07/19/22 Page, Nikki M, RN Personal Advocate & Liaison (PAL) Family Medicine 03/06/21 03/25/22 [place] [address] [place] [address] Assigned PCP 03/11/21 01/18/22 Laureen Dye APRN HELPDESK MANAGER [address] [place] [address] Assigned Heart and Vascular Provider 05/27/21 01/17/23 Franny Shrestha PA-C [address] [place] [address] Physician International Marketing Manager Urology 10/01/21 Franny Shrestha PA-C [address] [place] [address] Assigned Surgical Provider 12/29/21 11/22/22 [place] [address] [place] [address] Assigned PCP 01/19/22 03/08/22 [place] [address] [place] [address] Assigned PCP 03/09/22 03/22/22 [place] [address] [place] [address] Assigned PCP 03/23/22 06/21/22 [place] [address] [place] [address] Family Medicine 08/27/22 [place] [address] [place] [address] Assigned PCP 08/31/22 Aimee Mascorro MD [facility] [address] [place] [address] Assigned Surgical Provider 11/23/22 12/20/22 Franny Shrestha PA-C [address] [place] [address] Assigned Surgical Provider 12/21/22 Amanda Ibrahim MD [address] [facility] [address] [place] [address] Assigned Heart and Vascular Provider 01/18/23 documented as of this encounter
--- OUTSIDE RECORDS SUMMARY | 2023-07-30 13:38 | XMS_ITS | Encounter Summary ---
Author Name Unknown Organization [facility] Address [address] [place] [address] Care Team Providers Care Imaging Analyst Name Role Phone Page, Nikki Vega RN Unavailable Unavailable Bryon Bell MD Primary Care Provider + [phone] Bryon Bell MD Unavailable [phone] Laureen Dye APRN DETAIL TECHNICIAN Unavailable [phone] Franny Shrestha PA-C Unavailable Franny Shrestha PA-C Unavailable Anyi Broderick MD Unavailable Bryon Bell MD Unavailable [phone] Anyi Broderick MD Unavailable Vitaliy Solo MD Primary Care Provider Bryon Bell MD Unavailable [phone] Anyi Broderick MD Unavailable Aimee Mascorro MD Unavailable [phone] Franny Shrestha PA-C Unavailable Amanda Ibrahim MD Unavailable [phone] Reason for Visit * Reason Onset Date Comments MyChart Communication 10/01/2021 KRAIG daley ch - results Encounter Details Date Type Department Care Team (Latest Contact Info) Description 10/01/2021 [facility] [place] [id number] [place] [address] Nikki Pierre RN MyChart Communication (PAL outreach - resu... Social History Tobacco Use Types Packs/Day Years [...] AM CDT documented as of this encounter Miscellaneous Notes * Telephone Encounter - Nikki Pierre RN - 10/10/2021 10:27 AM CDT LM again for call back Pt has not read my chart and several out reach attempts have been made. Letter sent- [facility] will monitor for f/u Nikki Pierre RN * Telephone Encounter - Nikki Pierre RN - 10/05/2021 12:18 PM CDT LM for call back - See below Nikki Pierre RN documented in this encounter Plan of Treatment Not on file documented as of this encounter Visit Diagnoses Not on filedocumented in this encounter Care Teams Imaging Analyst Relationship Specialty Start Date End Date Bryon Bell MD PCP - General Family Medicine 03/06/21 05/05/22 Vitaliy Solo MD [facility] [address] [place] [address] PCP - General Emergency Medicine 07/19/22 Nikki Pierre, RN Personal Advocate & Liaison (PAL) Family Medicine 03/06/21 03/25/22 [place] [address] [place] [address] Assigned PCP 03/11/21 01/18/22 Laureen Dye APRN DETAIL TECHNICIAN [address] [place] [address] Assigned Heart and Vascular Provider 05/27/21 01/17/23 Franny Shrestha PA-C [address] [place] [address] Physician Ethanol Quality Leader Urology 10/01/21 Franny Shrestha PA-C [address] [place] [address] Assigned Surgical Provider 12/29/21 11/22/22 [place] [address] [place] [address] Assigned PCP 01/19/22 03/08/22 [place] [address] [place] [address] Assigned PCP 03/09/22 03/22/22 [place] [address] [place] [address] Assigned PCP 03/23/22 06/21/22 [place] [address] [address] [facility] [place] [address] Family Medicine 08/27/22 [place] [address] [place] [address] Assigned PCP 08/31/22 Aimee Mascorro MD [facility] [address] [place] [address] Assigned Surgical Provider 11/23/22 12/20/22 Franny Shrestha PA-C [address] [place] [address] Assigned Surgical Provider 12/21/22 Amanda Ibrahim MD [address] [facility] [address] [place] [address] Assigned Heart and Vascular Provider 01/18/23 documented as of this encounter
--- OUTSIDE RECORDS SUMMARY | 2023-07-30 13:38 | XMS_ITS | Encounter Summary ---
Author Name Unknown Organization [place] Address [address] [place] [address] Care Team Providers Care Exhibit Designer Name Role Phone Page, Nikki Vega RN Unavailable Unavailable Bryon Bell MD Primary Care Provider + [phone] Bryon Bell MD Unavailable [phone] Amanda Ibrahim MD Unavailable [phone] Laureen Dye APRN WOOD CUT ENGRAVER Unavailable [phone] Franny Shrestha PA-C Unavailable [phone] Franny Shrestha PA-C Unavailable Anyi Broderick MD Unavailable Bryon Bell MD Unavailable Anyi Broderick MD Unavailable Vitaliy Solo MD Primary Care Provider Bryon Bell MD Unavailable Anyi Broderick MD Unavailable Aimee Mascorro MD Unavailable [phone] Franny Shrestha PA-C Unavailable [phone] Amanda Ibrahim MD Unavailable [phone] Reason for Visit * Reason Onset Date Comments MyChart Communication 05/08/2021 Encounter Details Date Type Department Care Team (Late st Contact Info) Description 05/08/2021 [facility] Medical Advice [address] [address] [place] [address] [place] [address] MyChart Communication Social History Tobacco Use Types [...] on filedocumented in this encounter Care Teams Exhibit Designer Relationship Specialty Start Date End Date Bryon Bell MD PCP - General Family Medicine 03/06/21 05/05/22 Vitaliy Solo MD [facility] [address] [place] [address] PCP - General Emergency Medicine 07/19/22 Nikki Pierre RN Personal Advocate & Liaison (PAL) Family Medicine 03/06/21 03/25/22 [place] [address] [place] [address] Assigned PCP 03/11/21 01/18/22 Amanda Ibrahim MD [address] [place] [address] Assigned Heart and Vascular Provider 04/22/21 05/26/21 Hardik Laureen Madalyn, CARDIOLOGY CLINICAL NURSE SPECIALIST WOOD CUT ENGRAVER [address] [place] [address] Assigned Heart and Vascular Provider 05/27/21 01/17/23 Franny Shrestha PA-C [address] [place] [address] Physician Emt I/85 Urology 10/01/21 Franny Shrestha PA-C [address] [place] [address] Assigned Surgical Provider 12/29/21 11/22/22 [place] [address] [place] [address] Assigned PCP 01/19/22 03/08/22 [place] [address] [place] [address] Assigned PCP 03/09/22 03/22/22 [place] [address] [place] [address] Assigned PCP 03/23/22 06/21/22 [place] [address] [place] [address] Family Medicine 08/27/22 [place] [address] [address] [place] [address] Assigned PCP 08/31/22 Aimee Mascorro MD [facility] [address] [place] [address] Assigned Surgical Provider 11/23/22 12/20/22 Franny Shrestha PA-C [address] [place] [address] Assigned Surgical Provider 12/21/22 Amanda Ibrahim MD [address] [facility] [address] [place] [address] Assigned Heart and Vascular Provider 01/18/23 documented as of this encounter
--- OUTSIDE RECORDS SUMMARY | 2023-07-30 13:38 | XMS_ITS | Encounter Summary ---
Author Name Unknown Organization [place] Address [address] [place] [address] Care Team Providers Care Boiling Tub Operator Name Role Phone Page, Nikki Vega RN Unavailable Unavailable Bryon Bell MD Primary Care Provider + [phone] Bryon Bell MD Unavailable [phone] Amanda Ibrahim MD Unavailable [phone] Laureen Dye APRN GRAIN ELEVATOR SUPERINTENDENT Unavailable [phone] Franny Shrestha PA-C Unavailable Franny Shrestha PA-C Unavailable [phone] Anyi Broderick MD Unavailable Bryon Bell MD Unavailable Anyi Broderick MD Unavailable Vitaliy Solo MD Primary Care Provider Bryon Bell MD Unavailable Anyi Broderick MD Unavailable Aimee Mascorro MD Unavailable [phone] Franny Shrestha PA-C Unavailable Amanda Ibrahim MD Unavailable [phone] Encounter Details Date Type Department Care Team (Late st Contact Info) Description 04/19/2021 [facility] Medical Advice [facility] [address] [facility] [address] [place] [phone] Amanda Ibrahim MD [address] [facility] [address] [place] [address] Social History Tobacco Use Types Packs/Day Years [...] on filedocumented in this encounter Care Teams Boiling Tub Operator Relationship Specialty Start Date End Date Bryon Bell MD PCP - General Family Medicine 03/06/21 05/05/22 Vitaliy Solo MD [facility] [address] [place] [address] PCP - General Emergency Medicine 07/19/22 Nikki Pierre, RN Personal Advocate & Liaison (PAL) Family Medicine 03/06/21 03/25/22 [place] [address] [place] [address] Assigned PCP 03/11/21 01/18/22 Amanda Ibrahim MD [address] [place] [address] Assigned Heart and Vascular Provider 04/22/21 05/26/21 Hardik Laureen GUS Bergman GRAIN ELEVATOR SUPERINTENDENT [address] [place] [address] Assigned Heart and Vascular Provider 05/27/21 01/17/23 Franny Shrestha PA-C [address] [place] [address] Physician Retail Event And Sales Assistant Urology 10/01/21 Franny Shrestha PA-C [address] [place] [address] Assigned Surgical Provider 12/29/21 11/22/22 [place] [address] [place] [address] Assigned PCP 01/19/22 03/08/22 [place] [address] [place] [address] Assigned PCP 03/09/22 03/22/22 [place] [address] [place] [address] Assigned PCP 03/23/22 06/21/22 [place] [address] [address] [place], [place] [address] Family Medicine 08/27/22 [place] [address] [place] [address] Assigned PCP 08/31/22 Aimee Mascorro MD [facility] [address] [place] [address] Assigned Surgical Provider 11/23/22 12/20/22 Franny Shrestha PA-C [address] [place] [address] Assigned Surgical Provider 12/21/22 Amanda Ibrahim MD [address] [facility] [address] [place] [address] Assigned Heart and Vascular Provider 01/18/23 documented as of this encounter
--- OUTSIDE RECORDS SUMMARY | 2023-07-30 13:38 | XMS_ITS | Encounter Summary ---
Author Name Unknown Organization [facility] Address [address] [place] [address] Care Team Providers Care Integration Project Manager Name Role Phone Page, Nikki Vega RN Unavailable Unavailable Bryon Bell MD Primary Care Provider + [phone] Bryon Bell MD Unavailable [phone] Laureen Dye APRN BARREL PLANER Unavailable [phone] Franny Shrestha PA-C Unavailable Franny Shrestha PA-C Unavailable Anyi Broderick MD Unavailable Bryon Bell MD Unavailable Anyi Broderick MD Unavailable Vitaliy Solo MD Primary Care Provider Bryon Bell MD Unavailable [phone] Anyi Broderick MD Unavailable Aimee Mascorro MD Unavailable [phone] Franny Shrestha PA-C Unavailable Amanda Ibrahim MD Unavailable [phone] Encounter Details Date Type Department Care Team (Late st Contact Info) Description 08/29/2021 [facility] [id number] [place] [phone] Nikki Pierre RN Social History Tobacco Use Types Packs/Day Years Used Date Smoking Tobacco: Never Smokeless Tobacco: Never Alcohol Use Standard Drinks/Week Comments Yes 0 (1 standard drink = 0.6 oz pur e alcohol) occ PHQ-2 Answer Date Recorded PHQ-2 Total Score (Adult) - Positive if 3 or more points; Administer PHQ-9 if positive 0 08/31/2021 Sex and Gender Information Value Date Recorded Sex Assigned at Male 03/03/2021 2:33 PM CDT Gender Identity Male 03/03/2021 2:33 PM CDT Sexual Orientation Straight 03/03/2021 2: 33 PM CDT COVID-19 Exposure Response Date Recorded In the last month, have you been in contact with someone who was confirmed or suspected to have Coronavirus / COVID-19? No / Unsure 08/29/2021 9:40 AM ACID CONCENTRATOR documented as of this encounter Plan of Treatment Not on file documented as of this encounter Visit Diagnoses Not on filedocumented in this encounter Care Teams Integration Project Manager Relationship Specialty Start Date End Date Bryon Bell MD PCP - General Family Medicine 03/06/21 05/05/22 Vitaliy Solo MD [facility] [address] [place] [address] PCP - General Emergency Medicine 07/19/22 Nikki Pierre RN Personal Advocate & Liaison (PAL) Family Medicine 03/06/21 03/25/22 [place] [address] [place] [address] Assigned PCP 03/11/21 01/18/22 Laureen Dye APRN BARREL PLANER [address] [place] [address] Assigned Heart and Vascular Provider 05/27/21 01/17/23 Franny Shrestha PA-C [address] [place] [address] Physician Mortgage Loan Officer Originator Urology 10/01/21 Franny Shrestha PA-C [address] [place] [address] Assigned Surgical Provider 12/29/21 11/22/22 [place] [address] [place] [address] Assigned PCP 01/19/22 03/08/22 [place] [address] [place] [address] Assigned PCP 03/09/22 03/22/22 [place] [address] [place] [address] Assigned PCP 03/23/22 06/21/22 [place] [address] [place] [address] Family Medicine 08/27/22 [place] [address] [place] [address] Assigned PCP 08/31/22 Aimee Mascorro MD [facility] [address] [place] [address] Assigned Surgical Provider 11/23/22 12/20/22 Franny Shrestha PA-C [address] [facility] [address] [place] [address] Assigned Surgical Provider 12/21/22 Amanda Ibrahim MD [address] [facility] [address] [place] [address] Assigned Heart and Vascular Provider 01/18/23 documented as of this encounter
--- OUTSIDE RECORDS SUMMARY | 2023-07-30 13:39 | XMS_ITS | Clinical Summary ---
Author Name Unknown Organization [employer] [facility] Address [place], [place] [address] Care Team Providers Care Etl Analyst Name Role Phone Pcp, No Primary Care Provider Unavailabl e Allergies No known active allergies Medications Medication Sig Dispensed Refills Start Date End Date Status VITAMIN A/VITAMIN D3 (NATURAL VITAMIN D ORAL) Take by mouth. 0 Activ e clotrimazole-beta methasone cream (LOTRISONE) 1-0.05 % cream Apply small amount to affected area(s) 2 times daily 45 g 1 03/16/2013 Active spironolactone (ALDACTONE) 25 mg tabletIndications :Hypertension Take 1 Tablet (25 mg) by mouth once daily. 90 Tablet 3 05/22/2023 Active Eliquis 5 mg tablet Take 5 mg by mouth two times daily. 0 Active amiodarone (CORDARONE) 200 mg tablet Take 200 mg by mouth once daily. 0 Active lisinopriL (PRINIVIL; ZESTRIL) 40 mg tablet Take 40 mg by mouth once daily. 0 Active metoprolol succinate (TOPROL XL) 50 mg sustained-release tablet Take 50 mg by mouth once daily. 0 Active aspirin chewable 81 mg chewable tablet Take 81 mg by mouth once daily with a meal. 0 07/23/2023 Discontinued( Other - add note to specify (E-cancel not sent)) Active Problems Problem Noted Date Diagnosed Date Chest pain 01/23/2013 Encounters Date Type Department Care Team Description 07/25/2023 10:30 AM TUB TENDER Office Visit [facility] & [address] [phone] Kirit Light MD Arrived 06/15/2023 Orders Only [facility] [address] [place] [phone] Winnie Pagan NP <No scans attached> 05/22/2023 Telephone [facility] [address] [place] [address] Kirit Light MD multi questions 05/12/2023 Telephone [facility] [address] [place] [address] Dr Nunez [address] [place] [address] Kirit Light MD Results (Echo) 05/07/2023 2:00 PM CDT Orders Only [facility] [address] [place] [address] 2 scans: (2-Ord) Amended-ECHO TTE COMPLETE WO CONTRAST ([id number]) from Last 3 Months Social History Tobacco Use Types Packs/Day Years Used Date Smoking Tobacco: Former Comments:at age 17 Alcohol Use Standard Drinks/Week Comments Yes 0 (1 standard drink = 0.6 oz pur e alcohol) Rarely Social Connections Answer Date Recorded Frequency of Communication with Friends and Fami ly Not on file 04/04/2023 Sex and Gender Information Value Date Recorded Sex Assigned at Not on file Gender Identity Not on file Sexual Orientation Not on file Obstetrics History Last Filed Vital Signs Vital Sign Reading Time Taken Comments Blood Pressure 139/75 01/23/2013 1:06 PM CDT Pulse 59 01/23/2013 1:06 PM CDT Temperature 36.6 ??C (97.9 ??F) 01/23/2013 1:06 PM CD T Respiratory Rate 16 01/23/2013 1:06 PM CDT Oxygen Saturation 98% 01/23/2013 1:06 PM CDT Inhaled Oxygen Concentration - - Weight 90.5 kg (199 lb 8 oz) 01/23/2013 5:21 AM CDT Height 182.9 cm (6') 01/22/2013 11:05 PM CDT Body Mass Index 27.06 01/22/2013 11:05 PM CDT Plan of Treatment Health Maintenance Due Date Last Done Comments Tdap 1955 Depression screening for age 12+ 1956 BMI (ht and wt on same day) for age 18+ 1962 Hepatitis C screening for age 18-79 1962 Tetanus booster 1964 Zoster (shingles) series for age 50+ (1 of 2) 1994 Pneumococcal series for age 65+ (1 of 1 - PCV) 2009 COVID-19 vaccine series (3 - 2022- season) 2023 02/19/2021, 01/22/2021 Influenza for age 65+ 03/07/2023 Procedures Procedure Name Priority Date/Time Associated Diagnosis Comments ECHO TTE COMPLETE WO CONTRAST Routine 05/07/2023 2:45 PM CDT Cardiomyopathy (HC) from Last 3 Months Results * ECHO TTE COMPLETE WO CONTRAST (05/07/2023 2:45 PM CDT) AORTIC VALVE MEAN PG 6 mmHg EJECTION FRACTION 47 % LVEDD 5.8 cm MITRAL VALVE MR ERO 10 mm2 Anatomical Region Laterality Modality Ultrasound 05/07/2023 2:16 PM CDT Narrative 05/07/2023 3:27 PM CDT ECHOCARDIOGRAM KWAN MENDEZ ?Accession#: ?? [id number] : ?1945 78 years Study Date: ?? 05/07/2023 2:16:10 PM Gender: M ? BP: ? 172/84 mmHg Height: 183.00 cm ? BSA: ?2.08 m? ? ? Weight: 86.00 kg ?Tech: ? MJW ?Referring MD: KIRIT LIGHT Site: ? [facility] Reading Location: Mobile-OP Patient Location: Outpatient. Procedure: 2D, Color Doppler and Spectral Doppler. Indication for study: Cardiomyopathy Cardiac Rhythm: Regular.Study quality: Final Impressions: 1. Mildly increased left ventricular size, moderately increased wall thickness, mildly reduced global systolic function, calculated EF of 47 %. 2. Mild global hypokinesis with focal basal inferior wall motion abnormality. 3. Right ventricular cavity size is normal, global systolic RV function is normal. 4. Severely enlarged left atrium. 5. There is posterior leaflet tethering allowing for moderate eccentric functional mitral regurgitation. 6. The ascending aorta is dilated with a maximal diameter of 4.3 cm. 7. The aortic sinus is normal sized with a maximal diameter of 3.9 cm. Chamber Sizes and Function Mildly increased left ventricular size, moderately increased wall thickness, mildly reduced global systolic function, calculated EF of 47 %. Left atrial size is severely enlarged. Right ventricular cavity size is normal, global systolic RV function is normal. RV wall thickness is normal. The right atrium is moderately enlarged. Right atrial volume index is 39 ml/m? ? ?. Right atrial area is 24 cm? ? ?. The pulmonary artery is of normal size and origin. The sinus of Valsalva is normal sized. The ascending aorta is dilated. Valves, RV Pressures and Diastolic Function The aortic valve is trileaflet, no stenosis and trivial regurgitation. The mitral valve is normal in structure, moderate mitral regurgitation. Normal diastolic function. The tricuspid valve is normal in structure. Tricuspid regurgitation is trace regurgitation. The pulmonic valve is normal. Trace pulmonary regurgitation. Masses, Effusion, Shunts There is no pericardial effusion. The inferior vena cava is normal sized, respiratory size variation greater than 50%. No left to right shunting was detected by limited color flow Doppler interrogation of the interatrial septum. MEASUREMENTS AND CALCULATIONS 2-D Measurements and LV Function: LVID (d) 5.8 cm Planimetered EF 47 % LVID (s) 4.2 cm LV FS% (2D) ? 29 % IVS (d) ??1.3 cm LVOT diameter ?? 2.5 cm LVPW (d) 1.2 cm HR ?63 bpm Ao Sinus 3.9 cm LA Vol index ?79 ml/m2 Asc Ao ?? 4.3 cm RA Vol index ?39 ml/m2 LA ? 5.0 cm RA area ? 24 cm?RV Max 4C (d) ?? 4.6 cm Diastology: Mitral ?Tissue Doppler E Peak 0.7 m/s ??e', Septum ? 0.06 m/s A Peak 0.4 m/s ??e', Lateral ?0.09 m/s E/A ?1.7 ?E/e' Average ?? 10.17 DT ? 209 msec Aortic Valve: Vmax ? 1.7 m/s ??CALLUM (V) ?? 2.85 cm? AI P 1/2 437 msec VTI ?0.35 m ?? CALLUM (I) ?? 2.88 cm? ? ? LVOT V max ? 1.0 m/s ??Max PG ?12 mmHg LVOT VTI ? 0.20 m ?? Mean PG ?? 6 mmHg SV ? 100 ml ?? Dim Index 0.59 SV index ? 48 ml/m? ? ? CO ?6.3 l/min AV Ejection Time 0.31 sec CI ?3.0 l/min/m? ? ? AV Flow Rate ? 321 ml/s Mitral Valve: MVA ?3.6 cm? ? ? MR ERO ??0.10 cm? ? ? MV P 1/2 61 msec MR Vol. 22 ml ? MR TVI ??2.14 m Tricuspid Valve and estimated PA pressures: TAPSE 2.4 cm . Report modified by Rolando Regalado MD on 05/07/2023 3:27:52 PM. This study was interpreted by an [facility] accredited facility. CC: [facility] (med records) [facility]. ??Final (Updated) ?? Procedure Note Rolando Regalado MD - 05/07/2023 ECHOCARDIOGRAM KWAN MENDEZ : 1945 78 years Study Date: 05/07/2023 2:16:10 PM Gender: M BP: 172/84 mmHg Height: 183.00 cm BSA: 2.08 m? ? ? Weight: 86.00 kg Tech: RAUL Referring MD: KIRIT LIGHT Site: [facility] Reading Location: Mobile-OP Patient Location: Outpatient. Procedure: 2D, Color Doppler and Spectral Doppler. Indication for study: Cardiomyopathy Cardiac Rhythm: Regular.Study quality: Final Impressions: 1. Mildly increased left ventricular size, moderately increased wallthickness, mildly reduced global systolic function, calculated EF of 47%. 2. Mild global hypokinesis with focal basal inferior wall motionabnormality. 3. Right ventricular cavity size is normal, global systolic RV functionis normal. 4. Severely enlarged left atrium. 5. There is posterior leaflet tethering allowing for moderate eccentricfunctional mitral regurgitation. 6. The ascending aorta is dilated with a maximal diameter of 4.3 cm. 7. The aortic sinus is normal sized with a maximal diameter of 3.9 cm. Chamber Sizes and Function Mildly increased left ventricular size, moderately increased wallthickness, mildly reduced global systolic function, calculated EF of 47 %.Left atrial size is severely enlarged. Right ventricular cavity size isnormal, global systolic RV function is normal. RV wall thickness isnormal. The right atrium is moderately enlarged. Right atrial volume indexis 39 ml/m? ? ?. Right atrial area is 24 cm? ? ?. The pulmonary artery is ofnormal size and origin. The sinus of Valsalva is normal sized. Theascending aorta is dilated. Valves, RV Pressures and Diastolic Function The aortic valve is trileaflet, no stenosis and trivial regurgitation. Themitral valve is normal in structure, moderate mitral regurgitation. Normaldiastolic function. The tricuspid valve is normal in structure. Tricuspidregurgitation is trace regurgitation. The pulmonic valve is normal. Tracepulmonary regurgitation. Masses, Effusion, Shunts There is no pericardial effusion. The inferior vena cava is normal sized,respiratory size variation greater than 50%. No left to right shunting wasdetected by limited color flow Doppler interrogation of the interatrialseptum. MEASUREMENTS AND CALCULATIONS 2-D Measurements and LV Function: LVID (d) 5.8 cm Planimetered EF 47 % LVID (s) 4.2 cm LV FS% (2D) 29 % IVS (d) 1.3 cm LVOT diameter 2.5 cm LVPW (d) 1.2 cm HR 63 bpm Ao Sinus 3.9 cm LA Vol index 79 ml/m2 Asc Ao 4.3 cm RA Vol index 39 ml/m2 LA 5.0 cm RA area 24 cm? ? ? RV Max 4C (d) 4.6 cm Diastology: Mitral Tissue Doppler E Peak 0.7 m/s e', Septum 0.06 m/s A Peak 0.4 m/s e', Lateral 0.09 m/s E/A 1.7 E/e' Average 10.17 DT 209 msec Aortic Valve: Vmax 1.7 m/s CALLUM (V) 2.85 cm? ? ? AI P 1/2 437 msec VTI 0.35 m CALLUM (I) 2.88 cm? ? ? LVOT V max 1.0 m/s Max PG 12 mmHg LVOT VTI 0.20 m Mean PG 6 mmHg SV 100 ml Dim Index 0.59 SV index 48 ml/m? ? ? CO 6.3 l/min AV Ejection Time 0.31 sec CI 3.0 l/min/m? ? ? AV Flow Rate 321 ml/s Mitral Valve: MVA 3.6 cm? ? ? MR ERO 0.10 cm? ? ? MV P 1/2 61 msec MR Vol. 22 ml MR TVI 2.14 m Tricuspid Valve and estimated PA pressures: TAPSE 2.4 cm . Report modified by Rolando Regalado MD on 05/07/2023 3:27:52 PM. This study was interpreted by an [facility] accredited facility. CC: [facility] (med records) [facility]. Final (Updated) Kirit Light MD ECHO ORD from Last 3 Months Advance Directives Latest Code Status on File Code Status Date Activated Date Inactivated Comments Full Code 01/23/2013 1:38 AM 01/23/2013 4:48 PM Care Teams Etl Analyst Relationship Specialty Start Date End Date Pcp, No . PCP - General 06/18/23
--- OUTSIDE RECORDS SUMMARY | 2023-07-30 13:39 | XMS_ITS | Encounter Summary ---
Author Name Unknown Organization [facility] Address [address] [place] [address] Care Team Providers Care Radio Engineering Teacher Name Role Phone Anyi Broderick MD Unavailable Nikki Pierre RN Unavailable Unavailable Bryon Bell MD Primary Care Provider [phone] Bryon Bell MD Unavailable [phone] Amanda Ibrahim MD Unavailable [phone] Laureen Dye APRN TICKET PRINTER AND TAGGER Unavailable [phone] Franny Shrestha-C Unavailable Franny Shrestha PA-C Unavailable Anyi Broderick MD Unavailable Bryon Bell MD Unavailable [phone] Anyi Broderick MD Unavailable Vitaliy Solo MD Primary Care Provider Bryon Bell MD Unavailable Anyi Broderick MD Unavailable Aimee Mascorro MD Unavailable [phone] Franny ShresthaC Unavailable [phone] Amanda Ibrahim MD Unavailable [phone] Reason for Visit * Reason Onset Date Comments MyChart Communication 03/07/2021 Encounter Details Date Type Department Care Team (Latest Contact Info) Description 03/07/2021 MyC Medical [facility] [id number] [place] [id number] Nikki Pierre, RN MyChart Communication Social History Tobacco Use Types Packs/Day Years Used Date Smoking Tobacco: Never Smokeless Tobacco: Never Alcohol Use Standard Drinks/Week Comments Yes 0 (1 standard drink = 0.6 oz pur e alcohol) PHQ-2 Answer Date Recorded PHQ-2 Score 0 03/06/2021 Sex and Gender Information Value Date Recorded Sex Assigned at Male 03/03/2021 2:33 PM CDT Gender Identity Male 03/03/2021 2:33 PM CDT Sexual Orientation Straight 03/03/2021 2: 33 PM CDT COVID-19 Exposure Response Date Recorded In the last month, have you been in contact with someone who was confirmed or suspected to have Coronavirus / COVID-19? No / Unsure 03/06/2021 8:05 AM CDT documented as of this encounter Miscellaneous Notes * Telephone Encounter - Nikki Pierre RN - 03/22/2021 8:19 AM CDT Pt is scheduled for echo on 04/05 Nikki Pierre RN * Telephone Encounter - Bryon Bell MD - 03/21/2021 1:19 PM CDT I can see him that day, no need to reschedule. Needs echocardiogram, this is standard of care and sometimes there are structural issues with the heart that are causing A. Fib that we need to know about. If he has questions or concerns about doingthis test then we can refer him to cardiology for follow-up on this issue if he prefers. * Telephone Encounter - Nikki Pierre RN - 03/21/2021 9:40 AM CDT Pt returned call PAL reviewed echo and reason this is needed. He will call to schedule. If he is unable to get this done before 03/29 would you want to have him postpone f/u visit? Nikki Pierre RN * Telephone Encounter - Nikki Pierre RN - 03/21/2021 9:17 AM CDT Pt LM again on [facility] VM LM for call back Nikki Pierre RN * Telephone Encounter - Nikki Pierre RN - 03/16/2021 7:51 AM CDT Pt LM on [facility] VM at 8:15 pm with questions about echo. PAL LM with brief description of testing and why needed. Advised to call back with questions and gave phone number to schedule echo. Will check early next week for appt Nikki Pierre RN * Telephone Encounter - Nikki Pierre RN - 03/08/2021 7:31 AM CDT Pt LM on [facility]'s VM unable to do echo that was scheduled for today. Needs to schedule for next week. LM for cardio to cancel appt and call pt to re schedule for next week PAL will f/u next week to make sure this happens Nikki Pierre RN documented in this encounter Plan of Treatment Not on file documented as of this encounter Visit Diagnoses Not on filedocumented in this encounter Care Teams Radio Engineering Teacher Relationship Specialty Start Date End Date Bryon Bell MD PCP - General Family Medicine 03/06/21 05/05/22 [place] [address] PCP - General Emergency Medicine 07/19/22 [place] [address] [place] [address] Assigned PCP 01/19/21 03/10/21 Nikki Pierre, RN Personal Advocate & Liaison (PAL) Family Medicine 03/06/21 03/25/22 [place] [address] [place] [address] Assigned PCP 03/11/21 01/18/22 Amanda Ibrahim MD [address] [place] [id number] Assigned Heart and Vascular Provider 04/22/21 05/26/21 Laureen Dye, AUTO CLAIM REPRESENTATIVE TICKET PRINTER AND TAGGER [address] [place] [address] Assigned Heart and Vascular Provider 05/27/21 01/17/23 Franny Shrestha PA-C [address] [place] [address] Physician Controls Designer Urology 10/01/21 Franny Shrestha PA-C [address] [place] [id number] Assigned Surgical Provider 12/29/21 11/22/22 [place] [address] [place] [address] Assigned PCP 01/19/22 03/08/22 [place] [address] [place] [address] Assigned PCP 03/09/22 03/22/22 [place] [address] [place] [address] Assigned PCP 03/23/22 06/21/22 [place] [address] [place] [address] Family Medicine 08/27/22 [place] [address] [place] [address] Assigned PCP 08/31/22 Aimee Mascorro MD [facility] [address] [place] [address] Assigned Surgical Provider 11/23/22 12/20/22 Franny Shrestha PA-C [address] [place] [address] Assigned Surgical Provider 12/21/22 Amanda Ibrahim MD [address] [place] [id number] Assigned Heart and Vascular Provider 01/18/23 documented as of this encounter
--- OUTSIDE RECORDS SUMMARY | 2023-07-30 13:39 | XMS_ITS | Encounter Summary ---
Author Name Unknown Organization [facility] Address [address] [place] [address] Care Team Providers Care Video Production Assistant Name Role Phone No Ref-Primary, Physician Primary Care Provider Bryon Bell MD Unavailable Bryon Bell MD Unavailable [phone] Anyi Broderick MD Unavailable Nikki Pierre RN Unavailable Unavailable Bryon Bell MD Primary Care Provider [phone] Bryon Bell MD Unavailable [phone] Amanda Ibrahim MD Unavailable [phone] Laureen Dye APRN [facility] Unavailable [phone] Franny Shrestha-C Unavailable Franny Shrestha-C Unavailable [phone] Anyi Broderick MD Unavailable Bryon Bell MD Unavailable Anyi Broderick MD Unavailable Vitaliy Solo MD Primary Care Provider Bryon Bell MD Unavailable Anyi Broderick MD Unavailable Aimee Mascorro MD Unavailable [phone] Franny Shrestha PA-C Unavailable Amanda Ibrahim MD Unavailable [phone] Reason for Visit * Reason Onset Date Comments MyChart Communication 08/26/2018 Encounter Details Date Type Department Care Team (Late st Contact Info) Description 08/26/2018 MyC Medical Advice [address] [phone] [place] [address] [place] [address] MyChart Communication Social History Tobacco Use Types Packs/Day Years Used Date Smoking Tobacco: Former Smokeless Tobacco: Never Alcohol Use Standard Drinks/Week Comments Yes 0 (1 standard drink = 0.6 oz pur e alcohol) PHQ-2 Answer Date Recorded PHQ-2 Score 0 08/21/2018 Sex and Gender Information Value Date Recorded Sex Assigned at Male 03/03/2021 2:33 PM CDT Gender Identity Male 03/03/2021 2:33 PM CDT Sexual Orientation Straight 03/03/2021 2: 33 PM CDT documented as of this encounter Plan of Treatment Not on file documented as of this encounter Visit Diagnoses Not on filedocumented in this encounter Care Teams Video Production Assistant Relationship Specialty Start Date End Date No Ref-Primary, Physician PCP - General 08/14/18 03/05/21 [place] [address] [place] [address] PCP - Assigned PCP 07/30/18 09/08/18 Bryon Bell MD PCP - General Family Medicine 03/06/21 05/05/22 Vitaliy Solo MD [facility] [address] [place] [address] PCP - General Emergency Medicine 07/19/22 [place] [address] [address] [address] Assigned PCP 07/30/18 01/18/21 [place] [address] [place] [address] Assigned PCP 01/19/21 03/10/21 Nikki Pierre RN Personal Advocate & Liaison (PAL) Family Medicine 03/06/21 03/25/22 [place] [address] [place] [address] Assigned PCP 03/11/21 01/18/22 Amanda Ibrahim MD [address] [place] [address] Assigned Heart and Vascular Provider 04/22/21 05/26/21 Laureen Dye APRN TEACHING FELLOW [address] [place] [address] Assigned Heart and Vascular Provider 05/27/21 01/17/23 Franny Shrestha PA-C [address] [place] [address] Physician Nut Grinder Urology 10/01/21 Franny Shrestha PA-C [address] [place] [address] Assigned Surgical Provider 12/29/21 11/22/22 [place] [address] [place] [address] Assigned PCP 01/19/22 03/08/22 [place] [address] [place] [address] Assigned PCP 03/09/22 03/22/22 [place] [address] [place] [address] Assigned PCP 03/23/22 06/21/22 [place] [address] [place] [address] Family Medicine 08/27/22 [place] [address] [place] [address] Assigned PCP 08/31/22 Aimee Mascorro MD [facility] [address] [place] [address] Assigned Surgical Provider 11/23/22 12/20/22 Franny Shrestha PA-C [address] [place] [address] Assigned Surgical Provider 12/21/22 Amanda Ibrahim MD [address] [place] [address] Assigned Heart and Vascular Provider 01/18/23 documented as of this encounter
--- OUTSIDE RECORDS SUMMARY | 2023-07-30 13:39 | XMS_ITS | Encounter Summary ---
Author Name Unknown Organization [facility] Address [address] [place] [address] Care Team Providers Care Global Director Air And Climate Change Name Role Phone No Ref-Primary, Physician Primary Care Provider Bryon Bell MD Unavailable [phone] Bryon Bell MD Unavailable [phone] Anyi Broderick MD Unavailable Nikki Pierre RN Unavailable Unavailable Bryon Bell MD Primary Care Provider Bryon Blel MD Unavailable Amanda Ibrahim MD Unavailable [phone] Laureen Dye APRN [facility] Unavailable [phone] Franny Shrestha-C Unavailable Franny Shrestha-C Unavailable [phone] Anyi Broderick MD Unavailable Bryon Bell MD Unavailable Anyi Broderick MD Unavailable Vitaliy Solo MD Primary Care Provider Bryon Bell MD Unavailable Anyi Broderick MD Unavailable Aimee Mascorro MD Unavailable [phone] Franny Shrestha PA-C Unavailable Amanda Ibrahim MD Unavailable Encounter Details Date Type Department Care Team (Late st Contact Info) Description 08/21/[address] [facility] [address] [place] [phone] [place] [address] [facility] [address] Social History Tobacco Use Types Packs/Day Years [...] on filedocumented in this encounter Care Teams Global Director Air And Climate Change Relationship Specialty Start Date End Date No Ref-Primary, Physician PCP - General 08/14/18 03/05/21 [place] [address] [place] [address] PCP - Assigned PCP 07/30/18 09/08/18 Bryon Bell MD PCP - General Family Medicine 03/06/21 05/05/22 Vitaliy Solo MD [facility] [address] [place] [address] PCP - General Emergency Medicine 07/19/22 [place] [address] [place] [address] Assigned PCP 07/30/18 01/18/21 [place] [address] [place] [address] Assigned PCP 01/19/21 03/10/21 Nikki Pierre, SHERMAN Personal Advocate & Liaison (PAL) Family Medicine 03/06/21 03/25/22 [place] [address] [place] [address] Assigned PCP 03/11/21 01/18/22 Amanda Ibrahim MD [address] [place] [address] Assigned Heart and Vascular Provider 04/22/21 05/26/21 Laureen Dye APRN CALCULATOR OPERATOR [address] [place] [address] Assigned Heart and Vascular Provider 05/27/21 01/17/23 Franny Shrestha PA-C [address] [place] [address] Physician Entry Rep Urology 10/01/21 Franny Shrestha PA-C [address] [place] [address] Assigned Surgical Provider 12/29/21 11/22/22 [place] [address] [place] [address] Assigned PCP 01/19/22 03/08/22 [place] [address] [place] [address] Assigned PCP 03/09/22 03/22/22 [place] [address] [place] [address] Assigned PCP 03/23/22 06/21/22 [place] [address] [place] [address] Family Medicine 08/27/22 [place] [address] [place] [address] Assigned PCP 08/31/22 Aimee Mascorro MD [facility] [address] [place] [address] Assigned Surgical Provider 11/23/22 12/20/22 Franny Shrestha PA-C [address] [place] [address] Assigned Surgical Provider 12/21/22 Amanda Ibrahim MD [address] [place] [address] Assigned Heart and Vascular Provider 01/18/23 documented as of this encounter
--- OUTSIDE RECORDS SUMMARY | 2023-07-30 13:39 | XMS_ITS | Encounter Summary ---
Author Name Unknown Organization [facility] Address [address] [place] [address] Care Team Providers Care Manager Photo Name Role Phone No Ref-Primary, Physician Primary Care Provider Bryon Bell MD Unavailable [phone] Anyi Broderick MD Unavailable Nikki Pierre RN Unavailable Unavailable Bryon Bell MD Primary Care Provider [phone] Bryon Bell MD Unavailable [phone] Amanda Ibrahim MD Unavailable [phone] Laureen Dye APRN [facility] Unavailable [phone] Franny Shrestha-C Unavailable [phone] rFanny Shrestha-C Unavailable [phone] Anyi Broderick MD Unavailable Bryon Bell MD Unavailable [phone] Anyi Broderick MD Unavailable Vitaliy Solo MD Primary Care Provider Bryon Bell MD Unavailable [phone] Anyi Broderick MD Unavailable Aimee Mascorro MD Unavailable [phone] Franny Shrestha-C Unavailable [phone] Amanda Ibrahim MD Unavailable Reason for Visit * Reason Onset Date Comments MyChart Communication 03/09/2020 Encounter Details Date Type Department Care Team (Late st Contact Info) Description 03/09/[address] [facility] [address] [place] [address] [place] [address] [place] [address] MyChart Communication Social History Tobacco Use Types Packs/Day Years Used Date Smoking Tobacco: Former Cigarettes Q uit: 1953 Smokeless Tobacco: Never Alcohol Use Standard Drinks/Week [...] have Coronavirus / COVID-19? No / Unsure 02/28/2020 10:21 AM CDT documented as of this encounter Plan of Treatment Not on file documented as of this encounter Visit Diagnoses Not on filedocumented in this encounter Care Teams Manager Photo Relationship Specialty Start Date End Date No Ref-Primary, Physician PCP - General 08/14/18 03/05/21 rByon Bell MD PCP - General Family Medicine 03/06/21 05/05/22 Vitaliy Solo MD [facility] [address] [place] [address] PCP - General Emergency Medicine 07/19/22 [place] [address] [place] [address] Assigned PCP 07/30/18 01/18/21 [place] [address] [place] [address] Assigned PCP 01/19/21 03/10/21 Nikki Pierre, [place] Personal Advocate & Liaison (PAL) Family Medicine 03/06/21 03/25/22 [place] [address] [place] [address] Assigned PCP 03/11/21 01/18/22 Amanda Ibrahim MD [address] [place] [address] Assigned Heart and Vascular Provider 04/22/21 05/26/21 Laureen Dye APRN ENGRAVER BLOCK [address] [place] [address] Assigned Heart and Vascular Provider 05/27/21 01/17/23 Franny Shrestha PA-C [address] [place] [address] Physician Packer Urology 10/01/21 Franny Shrestha PA-C [address] [place] [address] Assigned Surgical Provider 12/29/21 11/22/22 [place] [address] [place] [address] Assigned PCP 01/19/22 03/08/22 [place] [address] [place] [address] Assigned PCP 03/09/22 03/22/22 [place] [address] [place] [address] Assigned PCP 03/23/22 06/21/22 [place] [address] [place] [address] MD Family Medicine 08/27/22 [place] [address] [place] [address] Assigned PCP 08/31/22 Aimee Mascorro MD [facility] [address] [place] [address] Assigned Surgical Provider 11/23/22 12/20/22 Franny Shrestha PA-C [address] [place] [address] Assigned Surgical Provider 12/21/22 Amanda Ibrahim MD [address] [place] [id number] Assigned Heart and Vascular Provider 01/18/23 documented as of this encounter
--- OUTSIDE RECORDS SUMMARY | 2023-07-30 13:39 | XMS_ITS | Encounter Summary ---
Author Name Unknown Organization [facility] Address [address] [place] [address] Care Team Providers Care Independent Freight Agent Name Role Phone No Ref-Primary, Physician Primary Care Provider Bryon Bell MD Unavailable Bryon Bell MD Unavailable [phone] Anyi Broderick MD Unavailable Nikki Pierre RN Unavailable Unavailable Bryon Bell MD Primary Care Provider Bryon Bell MD Unavailable Amanda Ibrahim MD Unavailable [phone] Laureen Dye APRN [facility] Unavailable [phone] Franny Shrestha-C Unavailable Franny Shrestha-C Unavailable [phone] Anyi Broderick MD Unavailable Bryon Bell MD Unavailable Anyi Broderick MD Unavailable Vitaliy Solo MD Primary Care Provider Bryon Bell MD Unavailable Anyi Broderick MD Unavailable Aimee Mascorro MD Unavailable [phone] Franny Shrestha PA-C Unavailable Amanda Ibrahim MD Unavailable [phone] Encounter Details Date Type Department Care Team (Late st Contact Info) Description 08/28/2018 MyC Medical Advice [facility] [address] [place] [phone] [place] [address] [facility] [place] [address] Social History Tobacco Use Types Packs/Day Years [...] on filedocumented in this encounter Care Teams Independent Freight Agent Relationship Specialty Start Date End Date No Ref-Primary, Physician PCP - General 08/14/18 03/05/21 [place] [address] [place] [address] PCP - Assigned PCP 07/30/18 09/08/18 Bryon Bell MD PCP - General Family Medicine 03/06/21 05/05/22 Vitaliy Solo MD [facility] [address] [place] [address] PCP - General Emergency Medicine 07/19/22 [place] [address] [place] [address] Assigned PCP 07/30/18 01/18/21 [place] [address] [place] [address] Assigned PCP 01/19/21 03/10/21 Nikki Pierre, [place] Personal Advocate & Liaison (PAL) Family Medicine 03/06/21 03/25/22 [place] [address] [place] [address] Assigned PCP 03/11/21 01/18/22 Amanda Ibrahim MD [address] [place] [address] Assigned Heart and Vascular Provider 04/22/21 05/26/21 Laureen Dye APRN BEAM BUILDER HELPER [address] [place] [address] Assigned Heart and Vascular Provider 05/27/21 01/17/23 Franny Shrestha PA-C [address] [place] [address] Physician Cnmt Urology 10/01/21 Franny Shrestha PA-C [address] [place] [address] Assigned Surgical Provider 12/29/21 11/22/22 [place] [address] [place] [address] Assigned PCP 01/19/22 03/08/22 [place] [address] [place] [address] Assigned PCP 03/09/22 03/22/22 [place] [address] [place] [address] Assigned PCP 03/23/22 06/21/22 [place] [address] [place] [address] Family Medicine 08/27/22 [place] [address] [place] [address] Assigned PCP 08/31/22 Aimee Mascorro MD [facility] [address] [place] [address] Assigned Surgical Provider 11/23/22 12/20/22 Franny Shrestha PA-C [address] [place] [address] Assigned Surgical Provider 12/21/22 Amanda Ibrahim MD [address] [place] [address] Assigned Heart and Vascular Provider 01/18/23 documented as of this encounter
--- OUTSIDE RECORDS SUMMARY | 2023-07-30 13:39 | XMS_ITS | Encounter Summary ---
Author Name Unknown Organization [facility] Address [address] [place] [address] Care Team Providers Care Operations Analyst Name Role Phone No Ref-Primary, Physician Primary Care Provider Bryon Bell MD Unavailable Bryon Bell MD Unavailable [phone] Anyi Broderick MD Unavailable Nikki Pierre RN Unavailable Unavailable Bryon Bell MD Primary Care Provider [phone] Bryon Bell MD Unavailable Amanda Ibrahim MD Unavailable [phone] Laureen Dye APRN [facility] Unavailable [phone] Franny Shrestha-C Unavailable Franny Shrestha-C Unavailable [phone] Anyi Broderick MD Unavailable Bryon Bell MD Unavailable Anyi Broderick MD Unavailable Vitaliy Solo MD Primary Care Provider Bryon Bell MD Unavailable Anyi Broderick MD Unavailable Aimee Mascorro MD Unavailable [phone] Franny Shrestha PA-C Unavailable [phone] Amanda Ibrahim MD Unavailable [phone] Encounter Details Date Type Department Care Team (Late st Contact Info) Description 08/26/2018 MyC Medical Advice [facility] [id number] [place] [phone] [place] [address] [facility] [place] [address] Social History Tobacco Use Types Packs/Day Years [...] on filedocumented in this encounter Care Teams Operations Analyst Relationship Specialty Start Date End Date No Ref-Primary, Physician PCP - General 08/14/18 03/05/21 [place] [address] [place] [address] PCP - Assigned PCP 07/30/18 09/08/18 Bryon Bell MD PCP - General Family Medicine 03/06/21 05/05/22 Vitaliy Solo MD [facility] [address] [place] [address] PCP - General Emergency Medicine 07/19/22 [place] [address] [place] [address] Assigned PCP 07/30/18 01/18/21 [place] [address] [place] [address] Assigned PCP 01/19/21 03/10/21 Nikki Pierre, [place] Personal Advocate & Liaison (PAL) Family Medicine 03/06/21 03/25/22 [place] [address] [address] [place] [address] Assigned PCP 03/11/21 01/18/22 Amanda Ibrahim MD [address] [place] [address] Assigned Heart and Vascular Provider 04/22/21 05/26/21 Laureen Dye APRN CONTACT CENTER ANALYST [address] [place] [address] Assigned Heart and Vascular Provider 05/27/21 01/17/23 Franny Shrestha PA-C [address] [place] [address] Physician Assistant Drafter Urology 10/01/21 Franny Shrestha PA-C [address] [place] [address] Assigned Surgical Provider 12/29/21 11/22/22 [place] [address] [place] [address] Assigned PCP 01/19/22 03/08/22 [place] [address] [place] [address] Assigned PCP 03/09/22 03/22/22 [place] [address] [place] [address] Assigned PCP 03/23/22 06/21/22 [place] [address] [place] [address] Family Medicine 08/27/22 [place] [address] [place] [address] Assigned PCP 08/31/22 Aimee Mascorro MD [facility] [address] [place] [address] Assigned Surgical Provider 11/23/22 12/20/22 Franny Shrestha PA-C [address] [place] [address] Assigned Surgical Provider 12/21/22 Amanda Ibrahim MD [address] [place] [address] Assigned Heart and Vascular Provider 01/18/23 documented as of this encounter
--- OUTSIDE RECORDS SUMMARY | 2023-07-30 13:39 | XMS_ITS | Encounter Summary ---
Author Name Unknown Organization [facility] Address [address] [place] [address] Care Team Providers Care Correctional Therapy Director Name Role Phone Page, Nikki Vega RN Unavailable Unavailable Bryon Bell MD Primary Care Provider [phone] Bryon Bell MD Unavailable [phone] Amanda Ibrahim MD Unavailable [phone] Laureen Dye APRN PAYROLL ADMINISTRATIVE ASSISTANT Unavailable [phone] Franny Shrestha PA-C Unavailable [phone] Franny Shrestha PA-C Unavailable Anyi Broderick MD Unavailable Bryon Bell MD Unavailable Anyi Broderick MD Unavailable Vitaliy Solo MD Primary Care Provider Bryon Bell MD Unavailable Anyi Broderick MD Unavailable Aimee Mascorro MD Unavailable Franny Shrestha PA-C Unavailable Amanda Ibrahim MD Unavailable [phone] Reason for Visit * Reason Onset Date Comments MyChart Communication 04/09/2021 Encounter Details Date Type Department Care Team (Late st Contact Info) Description 04/09/2021 [facility] [address] [phone] [place] [address] [place] [address] MyChart Communication Social History Tobacco Use Types [...] have Coronavirus / COVID-19? No / Unsure 04/05/2021 10:45 AM CDT documented as of this encounter Plan of Treatment Not on file documented as of this encounter Visit Diagnoses Not on filedocumented in this encounter Care Teams Correctional Therapy Director Relationship Specialty Start Date End Date Bryon Bell MD PCP - General Family Medicine 03/06/21 05/05/22 Vitaliy Solo MD [facility] [address] [place] [address] PCP - General Emergency Medicine 07/19/22 Nikki Pierre RN Personal Advocate & Liaison (PAL) Family Medicine 03/06/21 03/25/22 [place] [address] [place] [address] Assigned PCP 03/11/21 01/18/22 Amanda Ibrahim MD [address] [place] [address] Assigned Heart and Vascular Provider 04/22/21 05/26/21 Hardik Laureen Madalyn, SCHOOL ATHLETIC DIRECTOR PAYROLL ADMINISTRATIVE ASSISTANT [address] [place] [address] Assigned Heart and Vascular Provider 05/27/21 01/17/23 Franny Shrestha PA-C [address] [place] [address] Physician Funnel Coater Urology 10/01/21 Franny Shrestha PA-C [address] [place] [address] Assigned Surgical Provider 12/29/21 11/22/22 [place] [address] [place] [address] Assigned PCP 01/19/22 03/08/22 [place] [address] [place] [address] Assigned PCP 03/09/22 03/22/22 [place] [address] [place] [address] Assigned PCP 03/23/22 06/21/22 Bryon Bell [place] [address] [place] [address] Family Medicine 08/27/22 [place] [address] [address] [place] [address] Assigned PCP 08/31/22 Aimee Mascorro MD [facility] [place] [address] [place] [address] Assigned Surgical Provider 11/23/22 12/20/22 Franny Shrestha PA-C [address] [place] [address] Assigned Surgical Provider 12/21/22 Amanda Ibrahim MD [address] [facility] [address] [place] [address] Assigned Heart and Vascular Provider 01/18/23 documented as of this encounter
--- NOTE | 2023-07-30 13:45 | CRLHL7_ITS ---
For Patients: As a result of the Century Cures Act, medical imaging exams and procedure reports are released immediately into your electronic medical record. You may view this report before your referring provider. If you have questions, please contact your health care provider. Indication: Sciatica Technique: Multiplanar, multisequence, MRI of the lumbar spine, obtained without contrast. Comparison: Lumbar spine x-ray 07/16/2023 Findings: Preserved lumbar lordosis. Degenerative grade 1 anterolisthesis at L3-4 and L4-5, grade 1 retrolisthesis at L5-S1. No acute osseus abnormality. Low level articular pillar edema at the right L4-5 facet joint. Otherwise unremarkable bone marrow signal. Conus medullaris terminates at L1. No suspicious findings identified in the paraspinal soft tissues. Multiple presumed right renal cysts. Unremarkable included SI joints. T12-L1, L1-L2: No significant neural foraminal or spinal canal stenosis. L2-L3: Mild diffuse disc bulge. No significant neural foraminal or spinal canal stenosis. L3-L4: Right subarticular cranial disc extrusion, extending 2.3 cm cranial to the disc space, with superimposed moderate facet arthropathy contributing to moderate spinal canal, impinging the right L3 nerve root proximal to exiting the neural foramen, and descending right L4 nerve root. Mild-moderate bilateral neural foraminal narrowing. L4-L5: Left central disc protrusion/annular fissure, with left subarticular cranial migration and moderate facet arthropathy. Moderately severe spinal canal stenosis with potential descending cauda equina nerve root impingement particularly along the left lateral recess. Mild bilateral neural foraminal narrowing. L5-S1: Mild diffuse left eccentric disc-osteophyte complex, mild facet arthropathy. No significant neural foramina stenosis. Mild left lateral recess narrowing without central spinal canal stenosis. Impression: 1. Lumbar spondylosis, with low-grade degenerative spondylolisthesis, as well as articular pillar edema at the right L4-5 facet joint compatible with inflammatory/stress reaction. 2. At L3-4, right subarticular cranial disc extrusion contributes to moderate spinal canal stenosis, impingement of the right L3 nerve root proximal to the neural foramen, and impingement of the descending right L4 nerve root. 3. At L4-5, left central disc protrusion/annular fissure with left subarticular cranial disc migration contributing to moderately severe spinal canal stenosis and potential descending cauda equina nerve root impingement, particularly along the left lateral recess. 4. Mild-moderate bilateral neural foraminal narrowing at L3-4, mild bilateral neural foraminal narrowing at L4-5. Dictated by Jaylin Wooten MD @ 07/31/2023 10:09:02 AM (Electronically Signed)
== END 2023-07-30 13:27 | disposition home or self-care (01) ==
LOC: MRI 13:27
PROVIDERS: PCP Internal Medicine; Visit Provider Internal Medicine
DX: M54.30 Sciatica, unspecified side (principal); M47.896 Other spondylosis, lumbar region; M51.26 Other intervertebral disc displacement, lumbar region; M48.061 Spinal stenosis, lumbar region without neurogenic claudication
CPT/HCPCS: 72148

== ENCOUNTER 2023-08-25 09:15 | Outpatient (RCR) | payer MEDICARE, BC, SELFPAY ==
--- NOTE | 2023-06-06 15:43 | PT.OPEX ---
PT [place] [facility] PT [facility] Outpatient Eval Start: 06/06/23 07:36 Freq: Status: Active Protocol: Document 06/06/23 07:37 CRP (Rec: 06/06/23 15:43 CRP [id number]) E-signed By Ubaldo Morfin PT Physical Therapy Outpatient Evaluation Insurance Information Recert Due Date 09/04/23 Insurance Name Medicare B Medical Diagnosis Chronic Neck and Back pain Treating Diagnosis Bilateral LE pain Back pain Neck pain Neck stiffness Referring MD Dr Solo Subjective Subjective About 3 months ago pain coming up the L calf and whole leg. About a month ago he started having pain and weakness into the R LE. Has had times the R knee has given out on him and he almost has fallen. Pain on R is more at the hip and thigh. Pain is 6/10. L LE pain is more on the mild side like 2/10. When R LE his hurting the L LE is not as much of an issue. Lying down is the most painful for both legs. Sitting is OK. Legs will most likely give out when walking. No numbness or tingling into the legs. Has a hx of low back pain. Is taking Tylenol to manage pain. Pt also c.o R sided neck pain. No specific injury. Pt reports he has lost ROM turning to the R. Painful turning R. Mild/moderate pain noted. Current Work Status Retired Objective Range of Motion Trunk ROM FLex min dec Ext mod dec Bilat SB mod/marsha dec bilat BIlat rot mod/marsha dec bilat Cervical spine ROM Flex WNL Ext min dec with R upper cervical spine pain R rot 50% dec with R upper cervical spine pain L rot WNL Bilat SB marsha dec Bilat UE WNL Strength L hip WNL R hip flex 3-/5 R hip abd 4/5 L knee WNL R knee flex WNL R knee ext 3-/5 Bilat ankle DF WNL L grt toe ext 4-/5 R grt toe ext WNL Bilat UE MMT myotomes WNL Balance & Gait Shows hesitation with wt bearing on R LE Sensation/Reflexes Sensation intact to light touch Other/Pertinent Objective SLR + bilat at 60 deg Functional Test Performed & Score Tinetti - 21/28 Assessment Assessment/Impression Pt presents to the clinic with R sided facet mediated cervical spine pain and lumbar radiculopathy resulting in bilat LE pain and R sided L2-3 weakness. Pts presentation is characterized by painful loss of lumbar spine ROM, adverse neurodynamics, myotomal weakness, neuropathic pain mechanisms and painful hypomobility of lumbar spine segments. Skilled PT is necessary to incorporate ther ex, nm mauro, manual therapy and pt education to decrease pain and improve functional mobility. Primary Functional Limitations Pain with sleep LE weakness LE pain Difficulty walking Plan of Care Rehabilitation Potential Good Physical Therapy Goals 1. Pt will be independent with HEP in 6 weeks. 2. Pt will sleep through the night with 85% decrease in pain in 10 weeks. 3. Pt will walk without c/o in 12 weeks. Coordination/Communication With Referral Source Treatment Plan/Direct Interventions Gait Training,Joint Mobilization,Manual Therapy, Neuromuscular Re-ed,Self-Care/ Home Management,Therapeutic Activities,Therapeutic Exercises,Traction (Mechanical ) Frequency/Duration 1-2x/wk for 12 weeks Patient Will Be Discharged From Therapy Completion of LTG(s),Skills Plateau,Independent w/HEP, Independently Progressing Evaluation Billing Untimed Code Treatment Minutes 30 Complexity Moderate Certification Information Initial Certification Date 06/06/23 Ending Certification Date 09/04/23 Provider Signature Shows Agreement With POC & Medical Necessity Physician Signature & Date Requested Please Sign/Date Here Physician Comment/Change : Physician NPI Number #
== END 2023-12-23 23:59 | disposition home or self-care (01) ==
PROVIDERS: PCP Internal Medicine; Visit Provider Internal Medicine
DX: M54.2 Cervicalgia (principal); M54.9 Dorsalgia, unspecified; Z51.89 Encounter for other specified aftercare; G89.29 Other chronic pain
CPT/HCPCS: 86618; 97110; 97116; 97140; 97162

== ENCOUNTER 2023-09-22 09:09 | Outpatient (CLI) | payer MEDICARE, BC, SELFPAY ==
--- NOTE | 2023-09-22 09:15 | US_ITS ---
Patient: KWAN ARZATE Facility:?[facility] Patient ID:?[id number] Site Patient ID:?[id number] Site :?[id number] Study:?US-Extremity Right LEV-09/22/2023 9:41:55 AM Ordering Physician:MORGAN HAWKINS Final Report: INDICATION: EDEMA COMPARISON: None. TECHNIQUE: A compression venous ultrasound exam was performed of the right lower extremity using mann-scale imaging, color Doppler and spectral Doppler analysis. FINDINGS: Sonographic imaging of the right lower extremity demonstrates normal compressibility and color Doppler venous blood flow within the common femoral vein, deep femoral vein, and the proximal greater saphenous vein. Within the thigh, the femoral vein is patent and compressible. At a lower level, the popliteal and posterior tibial veins also show normal compressibility and color Doppler venous blood flow. Limited imaging of the contralateral groin demonstrates a normal spectral waveform and color Doppler venous blood flow within the left common femoral vein. IMPRESSION: Normal venous ultrasound exam. No evidence of deep vein thrombosis within the right lower extremity. Dictated by Jeramie Laguerre MD @ 09/22/2023 9:44:10 AM Signed by:?Jeramie Laguerre MD @09/22/2023 9:44:10 AM (Electronic Signature)
== END 2023-09-22 09:10 | disposition home or self-care (01) ==
LOC: US 09:10
PROVIDERS: PCP Internal Medicine; Visit Provider Internal Medicine
DX: R60.9 Edema, unspecified (principal)
CPT/HCPCS: 93971

== ENCOUNTER 2024-01-20 09:15 | Outpatient (CLI) | payer MEDICARE, BC, SELFPAY ==
--- OUTSIDE RECORDS SUMMARY | 2024-01-23 01:15 | XMS_ITS | Encounter Summary ---
Author Organization [facility] Address [address] [place] [address] Care Team Providers Care Power Electronics Engineer Name Role Phone Laueren Dye APRN [facility] JUSTICE Unavailable [phone] Franny Shrestha PA-C Unavailable Franny Shrestha PA-C Unavailable Vitaliy Solo MD Primary Care Provider Bryon Bell MD Unavailable [phone] Anyi Broderick MD Unavailable Aimee Mascorro MD Unavailable [phone] Franny Shrestha PA-C Unavailable Amanda Ibrahim MD Unavailable [phone] [facility] Unavailabl e Encounter Details Date Type Department Care Team (Late st Contact Info) Description 08/09/[address] [facility] [place] [address] [facility] [address] [place] [address] Josie Rosa, RN Social History Tobacco Use [...] Coronavirus/COVID-19? No / Unsure 08/01/2022 11:05 AM CAFE HELPER documented as of this encounter Plan of Treatment Not on file documented as of this encounter Visit Diagnoses Not on filedocumented in this encounter Care Teams Power Electronics Engineer Relationship Specialty Start Date End Date Vitaliy Solo MD [facility] [address] [place] [address] PCP - General Emergency Medicine 07/19/22 Laureen Dye, TECHNOLOGY SALES SPECIALIST FAMILY COURT JUSTICE [address] [place] [address] Assigned Heart and Vascular Provider 05/27/21 01/17/23 Franny Shrestha PA-C [address] [place] [address] Physician Restaurant Operations Manager Urology 10/01/21 Franny Shrestha PA-C [address] [place] [address] Assigned Surgical Provider 12/29/21 11/22/22 [place] [address] [place] [address] Family Medicine 08/27/22 [place] [address] [place] [address] Assigned PCP 08/31/22 10/27/23 Aimee Mascorro MD [facility] [address] [place] [address] Assigned Surgical Provider 11/23/22 12/20/22 Franny Shrestha PA-C [address] [place] [address] Assigned Surgical Provider 12/21/22 Amanda Ibrahim MD [address] [facility] [address] [place] [address] Assigned Heart and Vascular Provider 01/18/23 [facility] [address] [place] [id number] Assigned PCP 10/28/23 documented as of this encounter
--- OUTSIDE RECORDS SUMMARY | 2024-01-23 01:15 | XMS_ITS | Encounter Summary ---
Author Organization [facility] Address [address] [place] [address]. [place] [address] Care Team Providers Care Cyber Forensic Specialist Name Role Phone Laureen Dye APRN SPEECH LANGUAGE PATHOLOGIST PRN Unavailable [phone] Franny Shrestha PA-C Unavailable Franny Shrestha PA-C Unavailable Vitaliy Solo MD Primary Care Provider Bryon Bell MD Unavailable Anyi Broderick MD Unavailable Aimee Mascorro MD Unavailable [phone] Franny Shrestha PA-C Unavailable Amanda Ibrahim MD Unavailable [facility] Unavailabl e Encounter Details Date Type Department Care Team (Late st Contact Info) Description 09/15/2022 [facility] Adv[facility] [place] [address] [facility] [address] [place] [address] Amanda Ibrahim MD [address] [facility] [address] [place] [address] Social History Tobacco Use Types [...] Coronavirus/COVID-19? Unable to assess 08/27/2022 1:55 PM LAUNCHING PAD MECHANIC documented as of this encounter Plan of Treatment Not on file documented as of this encounter Visit Diagnoses Not on filedocumented in this encounter Care Teams Cyber Forensic Specialist Relationship Specialty Start Date End Date Vitaliy Solo MD [facility] [place] [address] [place] [address] PCP - General Emergency Medicine 07/19/22 Laureen Dye, HOSPITAL ACCOUNT MANAGER SPEECH LANGUAGE PATHOLOGIST PRN [address] [place] [address] Assigned Heart and Vascular Provider 05/27/21 01/17/23 Franny Shrestha PA-C [address] [place] [address] Physician Gis Software Developer Urology 10/01/21 Franny Shrestha PA-C [address] [place] [address] Assigned Surgical Provider 12/29/21 11/22/22 [place] [address] [place] [address] Family Medicine 2/21/23 [place] [address] [address] [place] [address] Assigned PCP 08/31/22 10/27/23 Aimee Mascorro MD [facility] [address] [place] [address] Assigned Surgical Provider 11/23/22 12/20/22 Franny Shrestha PA-C [address] [place] [address] Assigned Surgical Provider 12/21/22 Amanda Ibrahim MD [address] [facility] [address] [facility] [address] [place] [address] Assigned Heart and Vascular Provider 01/18/23 [facility] [address] [address] [place], [place] [address] Assigned PCP 10/28/23 documented as of this encounter
--- OUTSIDE RECORDS SUMMARY | 2024-01-23 01:15 | XMS_ITS | Continuity of Care Document ---
Author Name [facility] Organization [facility] Care Team Providers Care Quality Control Assistant Name Role Phone [facility] Unavailable Unavailable Problems Combined list of problems from Department of Defense and Veterans Affairs facilities. It does not include entries that were removed or entered in error. Problem Status Onset Date Problem Type Date of Resolution Comments Source Hearing loss Active Condition Oct 30, 2018 Entered By: ANNIE SOTOMAYOR Comment: Right ear [facility] Raised prostate specific antigen Active Condition [facility] Tinea cruris Active Condition [place] [facility] Encounters Combined list of: 1) Encounters from Department of Veterans Affairs facilities going back up to thelast 18 months. 2) Encounters from the Department of Defense facilities going back up to 280 months. Location Location Details Encounter Type Encounter Number Reason For Visit Attending Provider ADM Date DC Date Status Disposition Source [place] [facility] Outpatient Encounter [id number] 08/15 [facility] [place] [facility] Outpatient Encounter [id number] 10/[address] [facility] [place] [facility] Outpatient Encounter [id number] 03/[address] [facility] [place] [facility] Outpatient Encounter [id number] 04/[address] [facility] [place] [facility] Outpatient Encounter [id number] 04/17 [place] [facility] [place] [facility] Outpatient Encounter [id number] 04/[address] [facility] [place] [facility] Outpatient Encounter [id number] 05/[address] [facility] [place] [facility] Outpatient Encounter [id number] 05/01 [facility] [place] [facility] Outpatient Encounter [id number] 05/12 [place] [facility] [place] [facility] Outpatient Encounter [id number] 05/12 [facility] [facility] [place] [facility] Outpatient Encounter [id number] 10/07 [place] [facility] [place] [facility] Outpatient Encounter [id number] 10/07 [place] [facility] [place] [facility] Outpatient Encounter [id number] 01/05 [place] [facility] Social History Combined list of available smoking, tobacco, and other social history from Department of Defense and Veterans Affairs facilities. Social History Type Response Date Comment Sour e Tobacco smoking status [facility] NEVER [facility]ED 10[facility]21/2018 [facility] Plan of Care List of future care activities from Department of Veterans Affairs facilities. Additional future care activities may be listed in the Assessment and Plan section. Date/Time Care Activity Care Activity Detail Facili ty 01/30/2024 AMBULATORY - SURGERY AMBULATORY - SURGERY [facility] 01/30/2024 AMBULATORY - SURGERY AMBULATORY - SURGERY [facility]
--- OUTSIDE RECORDS SUMMARY | 2024-01-23 01:15 | XMS_ITS | Referral Summary ---
Author Organization [place] Address [address] [place] [address] Care Team Providers Care Acoustic Sensor Operator Name Role Phone Franny Shrestha PA-C Unavailable Vitaliy Solo MD Primary Care Provider Bryon Bell MD Unavailable Franny Shrestha PA-C Unavailable [phone] Amanda Ibrahim MD Unavailable [facility] Unavailabl e Encounters Date Type Department Care Team Description 11/13/2023 MyC Medical Advice [facility] [address] [place] [address] Yajaira Cedeño CMA from Last 3 Months Allergies No known active allergies Medications Medication Sig Dispensed Refills Start Date End Date Status vitamin D3 (CHOLECALCIFEROL) 50 mcg (2000 units) tablet Take 1 tablet (50 mcg) by mouth daily 100 tablet 03/21/2021 Active vitamin C (ASCORBIC ACID) 1000 MG TABS Take 1 tablet (1,000 mg) by mouth daily 100 tablet 03/21/2021 Active zinc gluconate 50 MG tablet Take 1 tablet (50 mg) by mouth daily 100 tablet 03/21/2021 Active amiodarone (PACERONE) 200 MG tabletIndications:At rial fibrillation, unspecified type (H) Take 1 tablet (200 mg) by mouth daily 90 tablet 3 07/19/2022 Active apixaban ANTICOAGULANT (ELIQUIS) 5 MG tabletIndications:At rial fibrillation, unspecified type (H) Take 1 tablet (5 mg) by mouth 2 times daily 180 tablet 3 07/19/2022 Active metoprolol succinate ER (TOPROL XL) 50 MG 24 hr tabletIndications:At rial fibrillation, unspecified type (H) Take 1 tablet (50 mg) by mouth daily 90 tablet 3 07/19/2022 Active mupirocin (BACTROBAN) 2 % external ointmentIndications: Postoperative state Apply topically 4 times daily 22 g 1 10/10/2022 Active sodium chloride (OCEAN) 0.65 % nasal sprayIndications:Sumeet al obstruction [place] 2 sprays in nostril 4 times daily as needed for congestion 60 mL 4 10/17/2022 Active lisinopril (ZESTRIL) 40 MG tabletIndications:Se condary cardiomyopathy (H) Take 1 tablet (40 mg) by mouth daily Appointment required for further refills 90 tablet 08/08/2023 Active Active Problems Problem Noted Date Diagnosed [...] 36 ??C (96.8 ??F) 09/06/2021 10:26 AM [facility] Respiratory Rate 14 09/06/2021 10:26 AM [facility] Oxygen Saturation 98% 07/19/2022 2:28 PM [facility] Inhaled Oxygen Concentration - - Weight 88.9 kg (196 lb) 11/19/2022 2:07 PM CDT Height 182.9 cm (6') 11/19/2022 2:07 PM CDT Body Mass Index 26.58 11/19/2022 2:07 PM CDT Plan of Treatment Not on file Procedures Procedure Name Priority Date/Time Associated Diagnosis Comments BASIC METABOLIC PANEL Routine 08/01/2022 11:08 AM [facility] Atrial fibrillation, unspecified type (H) TSH WITH FREE T4 REFLEX Routine 07/19/2022 1:01 PM [facility] Atrial fibrillation (H) HEPATIC FUNCTION PANEL Routine 07/19/2022 1:01 PM [facility] Atrial fibrillation (H) CBC WITH PLATELETS Routine 03/06/2021 10 :17 AM CDT Weight loss, unintentional HEPATITIS C ANTIBODY Routine 03/06/2021 10:17 AM CDT Encounter for hepatitis C screening test for low risk patient LIPID REFLEX TO DIRECT LDL PANEL Routine 02/28/2020 11:36 AM CDT Lipid screening COLONOSCOPY - HIM SCAN 03/10/2014 12:00 AM CDT from Last 3 Months or Most Recently Relevant to Health Maintenance Results * (ABNORMAL) Basic metabolic panel (08/01/2022 11:08 AM [facility]) Sodium 140 136 - 145 mmol/L 08/01/2022 11:43 AM [facility] Potassium 4.2 3.4 - 5.3 mmol/L 08/01/2022 11:43 AM [facility] Chloride 103 98 - 107 mmol/L 08/01/2022 11:43 AM [facility] Carbon Dioxide (CO2) 31(H) 22 - 29 mmol/L 08/01/2022 11:43 AM [facility] Anion Gap 6(L) 7 - 15 mmol/L 08/01/2022 11:43 AM [facility] Urea Nitrogen 20.9 8.0 - 23.0 mg/dL 08/01/2022 11:43 AM [facility] Creatinine 0.92 0.67 - 1.17 mg/dL 08/01/2022 11:43 AM [facility] Calcium 8.9 8.8 - 10.2 mg/dL 08/01/2022 11:43 AM [facility] Glucose 187(H) 70 - 99 mg/dL 08/01/2022 11:43 AM [facility] GFR Estimate 85 >60 mL/min/1.7 3m2 08/01/2022 11:43 AM [facility] Comment:eGFR calculated us2020 CKD-EPI equation. Blood STRUCTURE OF LEFT UPPER LIMB / Unknown Venipuncture / Unknown 08/01/2022 11:08 AM [facility] 08/01/2022 11:13 AM [facility] Amanda Ibrahim MD LAB - BLOOD ORDERAB LES LABORATORY [facility] [address] Lab (1st floor, no room number) [place] [address], [facility] [phone] * TSH with free T4 reflex (07/19/2022 1:01 PM [facility]) TSH 1.91 0.30 - 4.20 uIU/mL 07/19/2022 1:44 PM [facility] Blood STRUCTURE OF LEFT UPPER LIMB / Unknown Venipuncture / Unknown 07/19/2022 1:01 PM [facility] 07/19/2022 1:01 PM [facility] Amanda Ibrahim MD LAB - BLOOD ORDERAB LES Performing Organization Address City/[facility] [address]/ZIP Co de Phone Number LABORATORY [facility] [address] Lab (1st floor, no room number) [place] [address], [facility] [phone] * Hepatic panel (07/19/2022 1:01 PM [facility]) Protein Total 6.8 6.4 - 8.3 g/dL 07/19/2022 1:31 PM [facility] Albumin 4.1 3.5 - 5.2 g/dL 07/19/2022 1:31 PM [facility] Bilirubin Total 0.3 <=1.2 mg/dL 07/19/2022 1:31 PM [facility] Alkaline Phosphatase 78 40 - 129 U/L 07/19/2022 1:31 PM [facility] AST 17 10 - 50 U/L 07/19/2022 1:31 PM [facility] ALT 19 10 - 50 U/L 07/19/2022 1:31 PM [facility] Bilirubin Direct <0.20 0.00 - 0.30 mg/dL 07/19/2022 1:31 PM [facility] Blood STRUCTURE OF LEFT UPPER LIMB / Unknown Venipuncture / Unknown 07/19/2022 1:01 PM [facility] 07/19/2022 1:01 PM [facility] Amanda Ibrahim MD LAB - BLOOD ORDERAB LES LABORATORY [facility] [address] Lab (1st floor, no room number) [place] [address], [facility] [phone] * Hepatitis C antibody (03/06/2021 10:17 AM CDT) Hepatitis C Antibody Nonreactive Nonreactive 03/07/2021 11:24 AM CDT [facility] Blood STRUCTURE OF RIGHT UPPER LIMB / Unknown Venipuncture / Unknown 03/06/2021 10:17 AM CDT 03/06/2021 10:17 AM CDT Narrative [facility] - 03/07/2021 11:24 AM CDT Assay performance characteristics have not been established for newborns, infants, and children. Bryon Bell MD LAB - BLOOD ORDERABL ES [facility] Specialty Core Lab [address] [facility], [address] [place] [address], [facility] [phone] * CBC with platelets (03/06/2021 10:17 AM CDT) [facility] WBC Count 6.2 4.0 - 11.0 10e3/uL 03/06/2021 10:29 AM CDT [facility] RBC Count 5.22 4.40 - 5.90 10e6/uL 03/06/2021 10:29 AM CDT [facility] Hemoglobin 15.8 13.3 - 17.7 g/dL 03/06/2021 10:29 AM CDT [facility] Hematocrit 47.3 40.0 - 53.0 % 03/06/2021 10:29 AM CDT [facility] MCV 91 78 - 100 fL 03/06/2021 10:29 AM CDT [facility] MCH 30.3 26.5 - 33.0 pg 03/06/2021 10:29 AM CDT [facility] MCHC 33.4 31.5 - 36.5 g/dL 03/06/2021 10:29 AM CDT [facility] RDW 13.0 10.0 - 15.0 % 03/06/2021 10:29 AM CDT [facility] Platelet Count 187 150 - 450 10e3/uL 03/06/2021 10:29 AM CDT [facility] Blood STRUCTURE OF RIGHT UPPER LIMB / Unknown Venipuncture / Unknown 03/06/2021 10:17 AM CDT 03/06/2021 10:17 AM CDT Bryon Bell MD LAB - BLOOD ORDERABL ES [facility] [address] [facility] Lab (no room number, 1st floor of clinic) [place] [address], [facility] [phone] * (ABNORMAL) Lipid panel reflex to direct LDL Fasting (02/28/2020 11:36 AM CDT) Cholesterol 188 <200 mg/dL 02/29/2020 8:55 AM CDT [facility] Triglycerides 67 <150 mg/dL 02/29/2020 8:57 AM CDT [facility] Comment:Fasting specimen HDL Cholesterol 69 >39 mg/dL 0 8:55 AM CDT [facility] LDL Cholesterol Calculated 106(H) <100 mg/dL 02/29/2020 8:57 AM CDT [facility] Comment: Above desirable: ??100-129 mg/dl Borderline High: ??130-159 mg/dL High: ? 160-189 mg/dL Very high: ? >189 mg/dl Non HDL Cholesterol 119 <130 mg/dL 02/29/2020 8:55 AM CDT [facility] Blood specimen (specimen) 02/28/2020 11:36 AM CDT 02/28/2020 11:37 AM CDT Bryon Bell MD LAB - BLOOD ORDERABL ES [facility] [address] [place] [address] * COLONOSCOPY - HIM SCAN (03/10/2014 12:00 AM CDT) 03/10/2014 Provider Outside PROCEDURES from Last 3 Months or Most Recently Relevant to Health Maintenance Care Teams Acoustic Sensor Operator Relationship Specialty Start Date End Date Vitaliy Solo MD [facility] [address] [place] [address] PCP - General Emergency Medicine 07/19/22 Franny Shrestha PA-C [address] [facility] [place] [address] Physician Ballistics Professor Urology 10/01/21 [place] [address] [place] [address] Family Medicine 08/27/22 Franny Shrestha PA-C [address] [facility] [place] [address] Assigned Surgical Provider 12/21/22 Amanda Ibrahim MD [address] [facility] [address] [place] [address] Assigned Heart and Vascular Provider 01/18/23 [facility] [address] [place] [address] Assigned PCP 10/28/23
--- OUTSIDE RECORDS SUMMARY | 2024-01-23 01:15 | XMS_ITS | Encounter Summary ---
Author Organization [place] Address [address] [place] [address]. [place] [address] Care Team Providers Care Web Application Developer Name Role Phone Laureen Dye APRN GROUND SUPPORT EQUIPMENT FITTER Unavailable [phone] Franny Shrestha PA-C Unavailable [phone] Franny Shrestha PA-C Unavailable Anyi Broderick MD Unavailable Vitaliy Solo MD Primary Care Provider Bryon Bell MD Unavailable [phone] Anyi Broderick MD Unavailable Aimee Mascorro MD Unavailable [phone] Franny Shrestha PA-C Unavailable [phone] Amanda Ibrahim MD Unavailable [facility] Unavailabl e Encounter Details Date Type Department Care Team (Late st Contact Info) Description 06/07/2022 [facility] [address] [place] [address] Franny Shrestha PA-C [address] [facility] [address] [place], [place] [id number] Social History Tobacco Use Types Packs/Day Years [...] on filedocumented in this encounter Care Teams Web Application Developer Relationship Specialty Start Date End Date Vitaliy Solo MD [facility] [address] [place] [address] PCP - General Emergency Medicine 07/19/22 Laureen Dye, NOZZLE OPERATOR GROUND SUPPORT EQUIPMENT FITTER [address] [place] [address] Assigned Heart and Vascular Provider 05/27/21 01/17/23 Franny Shrestha PA-C [address] [place] [id number] Physician Exhaust And Muffler Repairer Urology 10/01/21 Franny Shrestha PA-C [address] [place] [id number] Assigned Surgical Provider 12/29/21 11/22/22 [place] [address] [place] [address] Assigned PCP 03/23/22 06/21/22 [place] [address] [place] [address] Family Medicine 08/27/22 [place] [address] [place] [address] Assigned PCP 08/31/22 10/27/23 Aimee Mascorro MD [facility] [address] [place] [id number] Assigned Surgical Provider 11/23/22 12/20/22 Franny Shrestha PA-C [address] [place] [address] Assigned Surgical Provider 12/21/22 Amanda Ibrahim MD [address] [facility] [address] [facility] [address] [place] [id number] Assigned Heart and Vascular Provider 01/18/23 [facility] [address] [place] [address] Assigned PCP 10/28/23 documented as of this encounter
--- OUTSIDE RECORDS SUMMARY | 2024-01-23 01:15 | XMS_ITS | Encounter Summary ---
Author Organization [place] Address [address] [place] [address] Care Team Providers Care Event Sales Representative Name Role Phone Franny Shrestha PA-C Unavailable Vitaliy Solo MD Primary Care Provider Bryon Bell MD Unavailable [phone] Franny Shrestha PA-C Unavailable Amanda Ibrahim MD Unavailable [phone] [facility] Unavailabl e Encounter Details Date Type Department Care Team (Late st Contact Info) Description 11/13/2023 MyC Medical Advice [facility] [id number] [place] [address] Yajaira Cedeño, [facility] Social History Tobacco Use Types Packs/Day Years [...] on filedocumented in this encounter Care Teams Event Sales Representative Relationship Specialty Start Date End Date Vitaliy Solo MD [facility] [address] [place] [address] PCP - General Emergency Medicine 07/19/22 Franny Shrestha PA-C [address] [place] [address] Physician Assessment Manager Urology 10/01/21 [place] [address] [facility] [place] [address] Family Medicine 08/27/22 Franny Shrestha PA-C [address] [facility] [address] [place] [address] Assigned Surgical Provider 12/21/22 Amanda Ibrahim MD [address] [facility] [address] [place] [address] Assigned Heart and Vascular Provider 01/18/23 [facility] [address] [place] [address] Assigned PCP 10/28/23 documented as of this encounter
--- OUTSIDE RECORDS SUMMARY | 2024-01-23 01:15 | XMS_ITS | Encounter Summary ---
Author Organization [place] Address [address] [place] [address]. [place] [address] Care Team Providers Care Slat Basket Maker Helper Machine Name Role Phone Franny Shrestha PA-C Unavailable Vitaliy Solo MD Primary Care Provider Bryon Bell MD Unavailable Anyi Broderick MD Unavailable Franny Shrestha PA-C Unavailable [phone] Amanda Ibrahim MD Unavailable [facility] Unavailabl e Reason for Visit * Reason Onset Date Comments Medication Request 08/08/2023 lisinopril (Z ESTRIL) 40 MG tablet Encounter Details Date Type Department Care Team (Late st Contact Info) Description 08/08/2023 [facility] Heart [facility] [address] [facility] [address] [place] [address] Amanda Ibrahim MD [address] [facility] [address] [place] [address] Medication Request (lisinopril (ZESTRIL) 40 MG tablet) Social History Tobacco Use Types Packs/Day Years [...] encounter Miscellaneous Notes * Telephone Encounter - Tari Bourgeois Gary - 08/08/2023 9:09 AM CST [facility] Phone Message May a detailed message be left on voicemail: yes Reason for Call: Medication Refill Request Has the patient contacted the pharmacy for the refill? Yes Name of medication being requested: lisinopril (ZESTRIL) 40 MG tablet Provider who prescribed the medication: Dr. Tolbert Pharmacy: [facility] [address] Date medication is needed: 08/08/23 Pharmacy had not heard back on refill request and the patient is completely out of this prescription Action Taken: Other: cardiology Travel Screening: Not Applicable Thank you! [facility] F COINS INSPECTOR documented in this encounter Plan of Treatment Not on file documented as of this encounter Visit Diagnoses Not on filedocumented in this encounter Care Teams Slat Basket Maker Helper Machine Relationship Specialty Start Date End Date Vitaliy Solo MD [facility] [address] [place] [address] PCP - General Emergency Medicine 07/19/22 Franny Srhestha PA-C [address] [address] Physician Tail Edger Urology 10/01/21 [place] [address] [place] [address] Family Medicine 08/27/22 [place] [address] [place] [address] Assigned PCP 08/31/22 10/27/23 Franny Shrestha PA-C [address] [facility] [address] [place] [address] Assigned Surgical Provider 12/21/22 Amanda Ibrahim MD [address] [facility] [address] [place] [address] Assigned Heart and Vascular Provider 01/18/23 [facility] [address] [place] [id number] Assigned PCP 10/28/23 documented as of this encounter
--- OUTSIDE RECORDS SUMMARY | 2024-01-23 01:15 | XMS_ITS | Encounter Summary ---
Author Organization [place] Address [address] [place] [address]. [place] [address] Care Team Providers Care Lens Coating Technician Name Role Phone Laureen Dye APRN COOK CHEF Unavailable [phone] Franny Shrestha PA-C Unavailable Franny Shrestha PA-C Unavailable [phone] Vitaliy Solo MD Primary Care Provider Bryon Bell MD Unavailable Anyi Broderick MD Unavailable Aimee Mascorro MD Unavailable [phone] Franny Shrestha PA-C Unavailable [phone] Amanda Ibrahim MD Unavailable [facility] Unavailabl e Encounter Details Date Type Department Care Team (Late st Contact Info) Description 08/01/2022 [facility] Medical Advice [facility] [place] [address] [facility] [address] [place] [address] Amanda Ibrahim MD [address] [facility] [address] [place] [address] Social History Tobacco Use Types [...] Coronavirus/COVID-19? No / Unsure 08/01/2022 11:05 AM DECORATING INSPECTOR documented as of this encounter Plan of Treatment Not on file documented as of this encounter Visit Diagnoses Not on filedocumented in this encounter Care Teams Lens Coating Technician Relationship Specialty Start Date End Date Vitaliy Solo MD [facility] [address] [place] [address] PCP - General Emergency Medicine 07/19/22 Laureen Dye, EMBOSSING CALENDER OPERATOR COOK CHEF [address] [place] [address] Assigned Heart and Vascular Provider 05/27/21 01/17/23 Franny Shrestha PA-C [address] [place] [address] Physician Office Helper Urology 10/01/21 Franny Shrestha PA-C [address] [place] [address] Assigned Surgical Provider 12/29/21 11/22/22 [place] [address] [place] [address] Family Medicine 08/27/22 [place] [address] [address] [place] [address] Assigned PCP 08/31/22 10/27/23 Aimee Mascorro MD [facility] [address] [place] [address] Assigned Surgical Provider 11/23/22 12/20/22 Franny Shrestha PA-C [address] [place] [address] Assigned Surgical Provider 12/21/22 Amanda Ibrahim MD [address] [facility] [address] [facility] [address] [place] [address] Assigned Heart and Vascular Provider 01/18/23 [facility] [address] [place] [id number] Assigned PCP 10/28/23 documented as of this encounter
--- OUTSIDE RECORDS SUMMARY | 2024-01-23 01:15 | XMS_ITS | Encounter Summary ---
Author Organization [place] Address [address] [place] [address] Care Team Providers Care Licensed Staff Mft Name Role Phone Franny Shrestha PA-C Unavailable Vitaliy Solo MD Primary Care Provider Bryon Bell MD Unavailable Anyi Broderick MD Unavailable Franny Shrestha PA-C Unavailable Amanda Ibrahim MD Unavailable [phone] [facility] Unavailabl e Encounter Details Date Type Department Care Team (Late st Contact Info) Description 09/30/2023 MyC Medical Advice [facility] [address] [place] [address] Yajaira Cedeño, JUNIOR BUYER Social History Tobacco Use Types Packs/Day Years [...] on filedocumented in this encounter Care Teams Licensed Staff Mft Relationship Specialty Start Date End Date Vitaliy Solo MD [facility] [address] [place] [address] PCP - General Emergency Medicine 07/19/22 Franny Shrestha PA-C [address] [place] [address] Physician Manager Title Urology 10/01/21 [place] [address] [place] [address] Family Medicine 08/27/22 [place] [address] [place] [address] Assigned PCP 08/31/22 10/27/23 Franny Shrestha PA-C [address] [place] [address] Assigned Surgical Provider 12/21/22 Amanda Ibrahim MD [address] [facility] [address] [facility] [address] [place] [address] Assigned Heart and Vascular Provider 01/18/23 [facility] [address] [place] [address] Assigned PCP 10/28/23 documented as of this encounter
--- OUTSIDE RECORDS SUMMARY | 2024-01-23 01:15 | XMS_ITS | Clinical Summary ---
Author Organization [facility] Address [address] [place] [address] Care Team Providers Care Bus Analyst Name Role Phone Franny Shrestha PA-C Unavailable [phone] Vitaliy Solo MD Primary Care Provider Bryon Bell MD Unavailable [phone] Franny Shrestha PA-C Unavailable [phone] Amanda Ibrahim MD Unavailable [phone] [facility] Unavailabl e Allergies No known active allergies [...] (OCEAN) 0.65 % nasal sprayIndications:Sumeet al obstruction [place] 2 sprays in nostril 4 times daily [...] Acute pain of right shoulder 03/26/2021 05/14/2021 Encounters Date Type Department Care Team Description 11/13/2023 MyC Medical Advice [address] [address] Yajaira Cedeño CMA from Last 3 Months Immunizations Name Administration Dates Next Due Influenza [...] 36 ??C (96.8 ??F) 09/06/2021 10:26 AM RADIO STATION ENGINEER Respiratory Rate 14 09/06/2021 10:26 AM RADIO STATION ENGINEER Oxygen Saturation 98% 07/19/2022 2:28 PM RADIO STATION ENGINEER Inhaled Oxygen Concentration - - Weight 88.9 [...] 05/10/2021, Additional history exists COVID-19 Vaccine ( - season) 2023 02/19/2021, 01/22/2021 PHQ-2 (once per calendar year) 2023 12/24/2021, 09/06/2021, 08/29/2021, Additional history exists ALT 07/19/2023 07/19/2022, 09/04, 03/06/2021, Additional history exists INFLUENZA VACCINE (#1) 2024 7, 05/16/2016, 06/06/2015, Additional history exists GLUCOSE 08/01/2025 08/01/2022, 08/08, 05/10/2021, Additional history exists ADVANCE CARE PLANNING 03/06/2026 [...] to complete this topic sDNA (Cologuard) Discontinued Procedures Procedure Name Priority Date/Time Associated Diagnosis Comments BASIC METABOLIC PANEL Routine 08/01/2022 11:08 AM RADIO STATION ENGINEER Atrial fibrillation, unspecified type (H) TSH WITH FREE T4 REFLEX Routine 07/19/2022 1:01 PM RADIO STATION ENGINEER Atrial fibrillation (H) HEPATIC FUNCTION PANEL Routine 07/19/2022 1:01 PM RADIO STATION ENGINEER Atrial fibrillation (H) CBC WITH PLATELETS Routine [...] (ABNORMAL) Basic metabolic panel (08/01/2022 11:08 AM RADIO STATION ENGINEER) Sodium 140 136 - 145 mmol/L 08/01/2022 11:43 AM [facility] Potassium 4.2 3.4 - 5.3 mmol/L 08/01/2022 11:43 AM [facility] Chloride 103 98 - 107 mmol/L 08/01/2022 11:43 AM [facility] Carbon Dioxide (CO2) 31(H) 22 - 29 mmol/L 08/01/2022 11:43 AM [facility] Anion Gap 6(L) 7 - 15 mmol/L 08/01/2022 11:43 AM [facility] Urea Nitrogen 20.9 8.0 - 23.0 mg/dL 08/01/2022 11:43 AM [facility] Creatinine 0.92 0.67 - 1.17 mg/dL 08/01/2022 11:43 AM [facility] Calcium 8.9 8.8 - 10.2 mg/dL 08/01/2022 11:43 AM [facility] Glucose 187(H) 70 - 99 mg/dL 08/01/2022 11:43 AM [facility] GFR Estimate 85 >60 mL/min/1.7 3m2 08/01/2022 11:43 AM [facility] Comment:eGFR calculated us2020 CKD-EPI equation. Blood STRUCTURE OF LEFT UPPER LIMB / Unknown Venipuncture / Unknown 08/01/2022 11:08 AM RADIO STATION ENGINEER 08/01/2022 11:13 AM RADIO STATION ENGINEER Amanda Ibrahim MD LAB - BLOOD ORDERAB LES LABORATORY [facility] [address] Lab (1st floor, no room number) [place] [address], [facility] [phone] * TSH with free T4 reflex (07/19/2022 1:01 PM RADIO STATION ENGINEER) TSH 1.91 0.30 - 4.20 uIU/mL 07/19/2022 1:44 PM RADIO STATION ENGINEER [facility] Blood STRUCTURE OF LEFT UPPER LIMB / Unknown Venipuncture / Unknown 07/19/2022 1:01 PM RADIO STATION ENGINEER 07/19/2022 1:01 PM RADIO STATION ENGINEER Amanda Ibrahim MD LAB - BLOOD ORDERAB LES LABORATORY [facility] [address] Lab (1st floor, no room number) [place] [address], [facility] [phone] * Hepatic panel (07/19/2022 1:01 PM RADIO STATION ENGINEER) Protein Total 6.8 6.4 - 8.3 g/dL 07/19/2022 1:31 PM RADIO STATION ENGINEER [facility] Albumin 4.1 3.5 - 5.2 g/dL 07/19/2022 1:31 PM RADIO STATION ENGINEER [facility] Bilirubin Total 0.3 <=1.2 mg/dL 07/19/2022 1:31 PM RADIO STATION ENGINEER [facility] Alkaline Phosphatase 78 40 - 129 U/L 07/19/2022 1:31 PM RADIO STATION ENGINEER [facility] AST 17 10 - 50 U/L 07/19/2022 1:31 PM RADIO STATION ENGINEER [facility] ALT 19 10 - 50 U/L 07/19/2022 1:31 PM RADIO STATION ENGINEER [facility] Bilirubin Direct <0.20 0.00 - 0.30 mg/dL 07/19/2022 1:31 PM RADIO STATION ENGINEER [facility] Blood STRUCTURE OF LEFT UPPER LIMB / Unknown Venipuncture / Unknown 07/19/2022 1:01 PM RADIO STATION ENGINEER 07/19/2022 1:01 PM RADIO STATION ENGINEER Amanda Ibrahim MD LAB - BLOOD ORDERAB LES LABORATORY [facility] Lab [address] Lab (1st floor, no room number) [place] [address], [facility] [phone] * Hepatitis C antibody (03/06/2021 10:17 AM CDT) Pathologist [facility] Hepatitis C Antibody Nonreactive Nonreactive 03/07/2021 11:24 AM CDT [facility] Blood STRUCTURE OF RIGHT UPPER LIMB / Unknown Venipuncture / Unknown 03/06/2021 10:17 AM CDT 03/06/2021 10:17 AM CDT Narrative [facility] - 03/07/2021 11:24 AM CDT Assay performance characteristics have not been established for newborns, infants, and children. Bryon Bell MD LAB - BLOOD ORDERABL ES [facility] Specialty Core Lab [address] [facility], [address] [place] [address], [place] [phone] * CBC with platelets (03/06/2021 10:17 AM CDT) Pathologist [facility] WBC Count 6.2 4.0 - 11.0 10e3/uL [...] LAB - BLOOD ORDERABL ES LV LABORATORY [facility] [address] [facility] Lab (no room number, 1st floor of [facility]) [place] [address], [facility] [phone] * (ABNORMAL) Lipid panel reflex to direct LDL Fasting (02/28/2020 11:36 AM CDT) Cholesterol 188 <200 mg/dL 02/29/2020 8:[address] [facility] Triglycerides 67 <150 mg/dL 02/29/2020 8:[address] [facility] Comment:Fasting specimen HDL Cholesterol 69 >39 mg/dL 0 8:[address] [facility] LDL Cholesterol Calculated 106(H) <100 mg/dL 02/29/2020 8:[address] [facility] Comment: Above desirable: ??100-129 mg/dl Borderline High: ??130-159 mg/dL High: ? 160-189 mg/dL Very high: ? >189 mg/dl Non HDL Cholesterol 119 <130 mg/dL 02/29/2020 8:[address] [facility] Blood specimen (specimen) 02/28/2020 11:36 AM CDT 02/28/2020 11:37 AM CDT Bryon Bell MD LAB - BLOOD ORDERABL ES [facility] [address] [place] [address] * COLONOSCOPY - HIM SCAN (03/10/2014 12:00 AM CDT) 03/10/2014 Provider Outside PROCEDURES from Last 3 Months or Most Recently Relevant to Health Maintenance Care Teams Bus Analyst Relationship Specialty Start Date End Date Vitaliy Solo MD [facility] [address] [place] [address] PCP - General Emergency Medicine 07/19/22 Franny Shrestha PA-C [address] [address] Physician Auto Mechanics Instructor Urology 10/01/21 [place] [address] [place] [address] Family Medicine 08/27/22 Franny Shrestha PA-C [address] [facility] [address] [place] [address] Assigned Surgical Provider 12/21/22 Amanda Ibrahim MD [address] [facility] [address] [place] [address] Assigned Heart and Vascular Provider 01/18/23 [facility] [address] [place] [address] Assigned PCP 10/28/23
--- OUTSIDE RECORDS SUMMARY | 2024-01-23 01:15 | XMS_ITS | Encounter Summary ---
Author Organization [place] Address [facility] [place] [address] Care Team Providers Care Sales Representative Advertising Name Role Phone Hardik December CHUMMER STORE COORDINATOR Unavailable [phone] Franny Shrestha PA-C Unavailable Franny Shrestha PA-C Unavailable Anyi Broderick MD Unavailable Vitaliy Solo MD Primary Care Provider Bryon Bell MD Unavailable Anyi Broderick MD Unavailable Aimee Mascorro MD Unavailable [phone] Franny Shrestha PA-C Unavailable [phone] Amanda Ibrahim MD Unavailable [facility] Unavailabl e Encounter Details Date Type Department Care Team (Late st Contact Info) Description 06/20/2022 [facility] [place] [address] [place] [address] [address] [place] [address] Hardik December, CHUMMER STORE COORDINATOR [address] [facility] [address] [place], [place] [address] Social History Tobacco Use Types Packs/Day Years [...] on filedocumented in this encounter Care Teams Sales Representative Advertising Relationship Specialty Start Date End Date Vitaliy Solo MD [facility] [address] [place] [address] PCP - General Emergency Medicine 07/19/22 Laureen Dye, CHUMMER STORE COORDINATOR [address] [place] [address] Assigned Heart and Vascular Provider 05/27/21 01/17/23 Franny Shrestha PA-C [address] [place] [address] Physician Registered Radiographer Urology 10/01/21 Franny Shrestha PA-C [address] [facility] [address] [place] [address] Assigned Surgical Provider 12/29/21 11/22/22 [place] [address] [place] [address] Assigned PCP 03/23/22 06/21/22 [place] [address] [place] [address] Family Medicine 08/27/22 [place] [address] [place] [address] Assigned PCP 08/31/22 10/27/23 Aimee Mascorro MD [facility] [address], [address] [place] [address] Assigned Surgical Provider 11/23/22 12/20/22 Franny Shrestha PA-C [address] [place] [address] Assigned Surgical Provider 12/21/22 Amanda Ibrahim MD [address] [facility] [address] [facility] [address] [place] [address] Assigned Heart and Vascular Provider 01/18/23 [facility] [address] [place] [address] Assigned PCP 10/28/23 documented as of this encounter
--- OUTSIDE RECORDS SUMMARY | 2024-01-23 01:15 | XMS_ITS | Encounter Summary ---
Author Organization [place] Address [address] [place] [address]. [place] [address] Care Team Providers Care Quality Assurance Monitor Name Role Phone Laureen Dye APRN LAND ACQUISITION SPECIALIST Unavailable [phone] Franny Shrestha PA-C Unavailable Franny Shrestha PA-C Unavailable Vitaliy Solo MD Primary Care Provider Bryon Bell MD Unavailable Anyi Broderick MD Unavailable Aimee Mascorro MD Unavailable [phone] Franny Shrestha PA-C Unavailable Amanda Ibrahim MD Unavailable [facility] Unavailabl e Encounter Details Date Type Department Care Team (Late st Contact Info) Description 10/07/2022 [facility] [place] [facility] [place] [address] [facility] [address] [place] [address] Amanda Ibrahim MD [address] [facility] [address] [place] [address] Social History Tobacco Use Types [...] on filedocumented in this encounter Care Teams Quality Assurance Monitor Relationship Specialty Start Date End Date Vitaliy Solo MD [facility] [address] [place] [address] PCP - General Emergency Medicine 07/19/22 Laureen Dye, CLINICAL RESEARCH MANAGER LAND ACQUISITION SPECIALIST [address] [place] [address] Assigned Heart and Vascular Provider 05/27/21 01/17/23 Franny Shrestha PA-C [address] [place] [address] Physician Machinery Mechanic Urology 10/01/21 Franny Shrestha PA-C [address] [facility] [address] [place], [place] [address] Assigned Surgical Provider 12/29/21 11/22/22 [place] [address] [address] [place], [place] [address] Family Medicine 08/27/22 [place] [address] [place] [address] Assigned PCP 08/31/22 10/27/23 Aimee Mascorro MD [facility] [address] , [address] [place] [address] Assigned Surgical Provider 11/23/22 12/20/22 Franny Shrestha PA-C [address] [place] [address] Assigned Surgical Provider 12/21/22 Amanda Ibrahim MD [address] [facility] [address] [place] [address] Assigned Heart and Vascular Provider 01/18/23 [facility] [address] [place] [address] Assigned PCP 10/28/23 documented as of this encounter
--- OUTSIDE RECORDS SUMMARY | 2024-01-23 01:15 | XMS_ITS | Encounter Summary ---
Author Organization [place] Address [address] [place] [address]. [place] [address] Care Team Providers Care Wind Energy Systems Installer Name Role Phone Laureen Dye APRN CLINICAL DOCUMENTATION CONSULTANT Unavailable [phone] Franny Shrestha PA-C Unavailable Franny Shrestha PA-C Unavailable [phone] Vitaliy Solo MD Primary Care Provider Bryon Bell MD Unavailable [phone] Anyi Broderick MD Unavailable Aimee Mascorro MD Unavailable [phone] Franny Shrestha PA-C Unavailable Amanda Ibrahim MD Unavailable [facility] Unavailabl e Encounter Details Date Type Department Care Team (Late st Contact Info) Description 11/03/2022 [facility] [place] [facility] [place] [address] [facility] [address] [place] [address] Amanda Ibrahim MD [address] [facility] [address] [place] [address] Social History Tobacco Use Types [...] on filedocumented in this encounter Care Teams Wind Energy Systems Installer Relationship Specialty Start Date End Date Vitaliy Solo MD [facility] [address] [place] [address] PCP - General Emergency Medicine 07/19/22 Laureen Dye E, FLATWORK ASSEMBLER CLINICAL DOCUMENTATION CONSULTANT [address] [place] [address] Assigned Heart and Vascular Provider 05/27/21 01/17/23 Franny Shrestha PA-C [address] [place] [address] Physician Ticketing Agent Urology 10/01/21 Franny Shrestha PA-C [address] [place] [address] Assigned Surgical Provider 12/29/21 11/22/22 [place] [address] [place] [address] MD Family Medicine 08/27/22 [place] [address] [address] [place] [address] Assigned PCP 08/31/22 10/27/23 Aimee Mascorro MD [facility] [address] , [address] [place] [address] Assigned Surgical Provider 11/23/22 12/20/22 Franny Shrestha PA-C [address] [place] [address] Assigned Surgical Provider 12/21/22 Amanda Ibrahim MD [address] [facility] [address] [facility] [address] [place] [address] Assigned Heart and Vascular Provider 01/18/23 [facility] [address] [place] [place] [address] Assigned PCP 10/28/23 documented as of this encounter
--- OUTSIDE RECORDS SUMMARY | 2024-01-23 01:15 | XMS_ITS | Continuity of Care Document ---
Author Organization [facility] Address [address] [place] [address] Phone Care Team Providers Care Quality Cloth Tester Name Role Phone Claudia WHEATLEY, PhD, Alexy Unavailable Unavai lable Allergies, Adverse Reactions, Alerts Substance Reaction Status Criticality No Known Allergies Active No Inform ation Medications Medication Instructions Dosage Effective Dates (start - stop) Status Comments FUROSEMIDE (unknown strength) Not Available - Active AMIODARONE HCL (unknown strength) Not Available - Active CALCIUM 500-VIT D3 (unknown strength) Not Available - Active MECLIZINE HCL (unknown strength) Not Available - Active VITAMIN C (unknown strength) Not Available - Active LISINOPRIL (unknown strength) Not Available - Active ELIQUIS (unknown strength) Not Available - Active METOPROLOL SUCCINATE (unknown strength) Not Available - Active Procedures Procedure Date Office/Outpatient Visit,Est, Mod 2023 Office/Outpatient Visit,New, Mod 2023 Advance Directives Directive Yes / No Effective Date File Name No Information Encounters Encounter Description Practice Location Reason(s) For Visit Diagnoses Date Provider Providers Copied on Encounter [facility], [address], [place], [id number], [place] tel:[phone] [facility] No Information Claudia Tracey. [facility], [address], [place], [address], [place]. tel: [phone] Office/Outpat ient Visit,Est, Mod [facility], [address], [place], [id number], [place] tel:[phone] [facility] Spinal stenosis, lumbar region with neurogenic claudication Claudia Tracey. [facility] [place], [address], [place], [address], [place]. tel:[phone] Referring Provider: [facility] [address] [place], [address]. tel:[phone] Office/Outpat ient Visit,New, Mod [facility], [address], [place], [place], [id number], [place] tel:[phone] [facility] Spinal stenosis, lumbar region with neurogenic claudication Claudia Tracey. [facility], [address], [place], [address], [place]. tel:[phone] Referring Provider: [facility] [address] [place], [address]. tel:[phone] Family History Family Member Type Diagnosis Age At Onset Mother Problem (finding) Stroke Sister Problem (finding) Cancer, unknown type Father Problem (finding) Cardiovascular disease Sister Problem (finding) Stroke Payers Payer name Insurance type Covered green [place] [id number] Medicare [facility] [id number] Social History Type Description Quantity Date Captured Comments Sex Male Smoking Status No Information Chief Complaint And Reason For Visit No Information Reason For Referral Reason For Referral No Information Plan Of Treatment Date Type Action Status Appointment Justin Mendez BOOKED Appointment Justin Mendez BOOKED History Of Present Illness Encounter Date Complaint History Of Prese nt Illness No Information Functional Status Date Functional Assessmen t No Information Instructions Date Instruction Additional Infor mation No Information Assessments Type Assessment Date No Information Patient Care Teams Name Effective Dates (start - stop) Status Members No Information
--- OUTSIDE RECORDS SUMMARY | 2024-01-23 01:15 | XMS_ITS | Continuity of Care Document ---
Author Organization [facility] Address [address] [address] [place] [address] Phone Care Team Providers Care Personnel Counselor Name Role Phone Link Jeb WHEATLEY Unavailable [...] Diagnoses Date Provider Providers Copied on Encounter [facility], [address] [address], [place], [id number], [place] tel:[phone] [facility] No Information 8 Link MD Russ. [address] [facility], [address], [place], [place], [id number] , [place]. tel:[phone] [facility], [address] [address], [facility] [place], [id number], [place] tel:[phone] [facility] Colon polypPersonal history of colon polypsPersonal History Colon PolypsBenign Neoplasm Colon Mar-201 4 Shwetha Sanchez. [address] [facility], [facility] [address], [place], [place], [id number] , [place]. [phone] Referring Provider: Referral Self, USE FOR SELF REFERRALS. [facility], [address] [address], [place], [place], [id number], [place] tel:[phone] Rui [facility] Colon Cancer ScreeningBenign Neoplasm Lg Bowel 200 8 Damon Ramires. [address] [facility], [facility] [address], [place], [place], [id number] , [place]. tel:[phone] Family History Family Member Type Diagnosis Age [...]
--- OUTSIDE RECORDS SUMMARY | 2024-01-23 01:15 | XMS_ITS | Encounter Summary ---
Author Organization [place] Address [address] [place] [address]. [place] [address] Care Team Providers Care Fitter Welder Name Role Phone Laureen Dye APRN SENIOR DEVELOPER Unavailable [phone] Franny Shrestha PA-C Unavailable Franny Shrestha PA-C Unavailable Vitaliy Solo MD Primary Care Provider Bryon Bell MD Unavailable [phone] Anyi Broderick MD Unavailable Aimee Mascorro MD Unavailable [phone] Franny Shrestha PA-C Unavailable Amanda Ibrahim MD Unavailable [facility] Unavailabl e Encounter Details Date Type Department Care Team (Late st Contact Info) Description 10/11/2022 [facility] Adv[facility] [place] [address] [facility] [address] [place] [address] Amanda Irbahim MD [address] [facility] [address] [place] [address] Social History Tobacco Use Types [...] on filedocumented in this encounter Care Teams Fitter Welder Relationship Specialty Start Date End Date Vitaliy Solo MD [facility] [address] [place] [address] PCP - General Emergency Medicine 07/19/22 Laureen Dye, OTOLARYNGOLOGY NURSE SENIOR DEVELOPER [address] [place] [address] Assigned Heart and Vascular Provider 05/27/21 01/17/23 Franny Shrestha PA-C [address] [place] [address] Physician Supervisor Lace Tearing Urology 10/01/21 Franny Shrestha PA-C [address] [facility] [address] [place], [place] [address] Assigned Surgical Provider 12/29/21 11/22/22 [place] [address] [place], [place] [address] Family Medicine 08/27/22 [place] [address] [place] [address] Assigned PCP 08/31/22 10/27/23 Aimee Mascorro MD [facility] [address] , [address] [place] [address] Assigned Surgical Provider 11/23/22 12/20/22 Franny Shrestha PA-C [address] [place] [address] Assigned Surgical Provider 12/21/22 Amanda Ibrahim MD [address] [facility] [address] [place] [address] Assigned Heart and Vascular Provider 01/18/23 [facility] [address] [place] [address] Assigned PCP 10/28/23 documented as of this encounter
--- OUTSIDE RECORDS SUMMARY | 2024-01-23 01:16 | XMS_ITS | Encounter Summary ---
Author Organization [place] Address [address] [place] [address] Care Team Providers Care Quotation Clerk Name Role Phone Page, Nikki Vega RN Unavailable Unavailable Bryon Bell MD Primary Care Provider + [phone] Bryon Bell MD Unavailable [phone] Amanda Ibrahim MD Unavailable [phone] Laureen Dye APRN, CNP Unavailable [phone] Franny Shrestha PA-C Unavailable Franny Shrestha PA-C Unavailable Anyi Broderick MD Unavailable Bryon Bell MD Unavailable [phone] Anyi Broderick MD Unavailable Vitaliy Solo MD Primary Care Provider Bryon Bell MD Unavailable [phone] Anyi Broderick MD Unavailable Aimee Mascorro MD Unavailable [phone] Franny Shrestha PA-C Unavailable [phone] Amanda Ibrahim MD Unavailable [phone] [facility] Unavailabl e Encounter Details Date Type Department Care Team (Late st Contact Info) Description 05/03/2021 My[facility] Medical Advice [facility] Heart [facility] [address] [facility] [address] [place] [address] Amanda Ibrahim MD [address] [facility] [address] [place] [id number] Social History Tobacco Use Types Packs/Day Years [...] on filedocumented in this encounter Care Teams Quotation Clerk Relationship Specialty Start Date End Date Bryon Bell MD PCP - General Family Medicine 03/06/21 05/05/22 Vitaliy Solo MD [facility] [address] [place] [address] PCP - General Emergency Medicine 07/19/22 Nikki Pierre RN Personal Advocate & Liaison (PAL) Family Medicine 03/06/21 03/25/22 [place] [address] [facility] [place] [address] Assigned PCP 03/11/21 01/18/22 Amanda Ibrahim MD [address] [place] [address] Assigned Heart and Vascular Provider 04/22/21 05/26/21 Laureen Dye APRN MEDICAL REFERRAL COORDINATOR [address] [place] [address] Assigned Heart and Vascular Provider 05/27/21 01/17/23 Franny Shrestha PA-C [address] [place] [address] Physician Mixer Attendant Urology 10/01/21 Franny Shrestha PA-C [address] [place] [address] Assigned Surgical Provider 12/29/21 11/22/22 [place] [address] [place] [address] Assigned PCP 01/19/22 03/08/22 [place] [address] [place] [address] Assigned PCP 03/09/22 03/22/22 [place] [address] [place] [address] Assigned PCP 03/23/22 06/21/22 [place] [address] [place] [address] Family Medicine 08/27/22 [place] [address] [place] [address] Assigned PCP 08/31/22 10/27/23 Aimee Mascorro MD [facility] [address] [place] [address] Assigned Surgical Provider 11/23/22 12/20/22 Franny Shrestha PA-C [address] [place] [address] Assigned Surgical Provider 12/21/22 Amanda Ibrahim MD [address] [facility] [address] [place] [address] Assigned Heart and Vascular Provider 01/18/23 [facility] [address] [place] [address] Assigned PCP 10/28/23 documented as of this encounter
--- OUTSIDE RECORDS SUMMARY | 2024-01-23 01:16 | XMS_ITS | Encounter Summary ---
Author Organization [place] Address [address] [place] [address] Care Team Providers Care Medical Radiation Therapist Name Role Phone Anyi Broderick MD Unavailable Nikki Pierre RN Unavailable Unavailable Bryon Bell MD Primary Care Provider + [phone] Bryon Bell MD Unavailable [phone] Amanda Ibrahim MD Unavailable [phone] Laureen Dye APRN [facility] Unavailable [phone] Franny Shrestha-C Unavailable Franny Shrestha-C Unavailable Anyi Broderick MD Unavailable Bryon Bell MD Unavailable [phone] Anyi Broderick MD Unavailable Vitaliy Solo MD Primary Care Provider Bryon Bell MD Unavailable Anyi Broderick MD Unavailable Aimee Mascorro MD Unavailable [phone] Franny Shrestha-C Unavailable Amanda Ibrahim MD Unavailable [phone] [facility] Unavailabl e Reason for Visit * Reason Onset Date Comments MyChart Communication 03/07/2021 Encounter Details Date Type Department Care Team (Latest Contact Info) Description 03/07/2021 [facility] [address] [place] [address] Nikki Pierre RN MyChart Communication Social History Tobacco Use [...] 03/21/2021 9:40 AM CDT Pt returned call [facility] reviewed echo and reason this is needed. He will call to schedule. If he is unable to get this done before 03/29 would you want to have him postpone f/u visit? Nikki Pierre RN * Telephone Encounter - Nikki Pierre RN - 03/21/2021 9:17 AM CDT Pt LM again on PAL VM LM for call back Nikki Pierre RN * Telephone Encounter - Nikki Pierre RN - 03/16/2021 7:51 AM CDT Pt LM on PAL VM at 8:15 pm with questions about echo. PAL LM with brief description of testing and why needed. Advised to call back with questions and gave phone number to schedule echo. Will check early next week for appt Nikki Pierre RN * Telephone Encounter - Nikki Pierre RN - 03/08/2021 7:31 AM CDT Pt LM on PAL's VM unable to do echo that was [...] on filedocumented in this encounter Care Teams Medical Radiation Therapist Relationship Specialty Start Date End Date Bryon Bell MD PCP - General Family Medicine 03/06/21 05/05/22 Vitaliy Solo MD [facility] [address] [place] [address] PCP - General Emergency Medicine 07/19/22 [place] [address] [place] [address] Assigned PCP 01/19/21 03/10/21 Nikki Pierre RN Personal Advocate & Liaison (PAL) Family Medicine 03/06/21 03/25/22 [place] [address] [facility] [place] [address] Assigned PCP 03/11/21 01/18/22 Amanda Ibrahim MD [address] [facility] [address] [place] [address] Assigned Heart and Vascular Provider 04/22/21 05/26/21 Laureen Dye APRN [employer] [address] [place] [address] Assigned Heart and Vascular Provider 05/27/21 01/17/23 Franny Shrestha PA-C [address] [place] [address] Physician Corporate Specialist Urology 10/01/21 Franny Shrestha PA-C [address] [place] [address] Assigned Surgical Provider 12/29/21 11/22/22 [place] [address] [place] [address] Assigned PCP 01/19/22 03/08/22 [place] [address] [place] [address] Assigned PCP 03/09/22 03/22/22 [place] [address] [place] [address] Assigned PCP 03/23/22 06/21/22 [place] [address] [place] [address] Family Medicine 08/27/22 [place] [address] [facility] [place] [place] [address] Assigned PCP 08/31/22 10/27/23 Aimee Mascorro MD [facility] [address], [address] [place] [address] Assigned Surgical Provider 11/23/22 12/20/22 Franny Shrestha PA-C [address] [place] [address] Assigned Surgical Provider 12/21/22 Amanda Ibrahim MD [address] [place] [address] Assigned Heart and Vascular Provider 01/18/23 [facility] [address] [place] [address] Assigned PCP 10/28/23 documented as of this encounter
--- OUTSIDE RECORDS SUMMARY | 2024-01-23 01:16 | XMS_ITS | Encounter Summary ---
Author Organization [place] Address [address] [place] [address] Care Team Providers Care Hack Driver Name Role Phone Page, Nikki Vega RN Unavailable Unavailable Bryon Bell MD Primary Care Provider [phone] Bryon Bell MD Unavailable [phone] Laureen Dye APRN CENTRAL STERILE TECHNICIAN Unavailable [phone] Franny Shrestha PA-C Unavailable Franny Shrestha PA-C Unavailable Anyi Broderick MD Unavailable Bryon Bell MD Unavailable [phone] Anyi Broderick MD Unavailable Vitaliy Solo MD Primary Care Provider Bryon Bell MD Unavailable [phone] Anyi Broderick MD Unavailable Aimee Mascorro MD Unavailable [phone] Franny Shrestha PA-C Unavailable [phone] Amanda Ibrahim MD Unavailable [phone] [facility] Unavailabl e Reason for Visit * Reason Onset Date Comments Call to schedule test 08/21/2021 orders nee d to be placed Encounter Details Date Type Department Care Team (Late st Contact Info) Description 08/21/2021 [facility] Heart [facility] [address] [facility] [address] [place] [address] Laureen Dye APRN CENTRAL STERILE TECHNICIAN [address] [facility] [address] [place] [address] Call to schedule test (orders need to [...] France Chapa - 08/21/2021 3:[address] [facility] Call Center Phone Message May a detailed message be left on voicemail: yes Reason for Call: Appointment Intake Referring Provider Name: Laureen Dye Diagnosis and/or Symptoms: Secondary cardiomyopathy (H) Benign essential hypertension Action Taken: Message routed to: Other: ru adult cardiology Travel Screening: Not Applicable Please place orders per dictation so pt can schedule appts TRUSS DETAILER documented in this encounter Plan of Treatment Not on file documented as of this encounter Visit Diagnoses Not on filedocumented in this encounter Care Teams Hack Driver Relationship Specialty Start Date End Date Bryon Bell MD PCP - General Family Medicine 03/06/21 05/05/22 Vitaliy Solo MD [facility] [address] [place] [address] PCP - General Emergency Medicine 07/19/22 Nikki Pierre, RN Personal Advocate & Liaison (PAL) Family Medicine 03/06/21 03/25/22 [place] [address] [place] [address] Assigned PCP 03/11/21 01/18/22 Laureen Dye, AMBULATORY SERVICES REPRESENTATIVE CENTRAL STERILE TECHNICIAN [address] [place] [address] Assigned Heart and Vascular Provider 05/27/21 01/17/23 Franny Shrestha PA-C [address] [place] [address] Physician Shrimp Trawler Urology 10/01/21 Franny Shrestha PA-C [address] [place] [address] Assigned Surgical Provider 12/29/21 11/22/22 [place] [address] [place] [address] Assigned PCP 01/19/22 03/08/22 [place] [address] [place] [address] Assigned PCP 03/09/22 03/22/22 [place] [address] [place] [address] Assigned PCP 03/23/22 06/21/22 [place] [address] [place] [address] Family Medicine 08/27/22 [place] [address] [place] [address] Assigned PCP 08/31/22 10/27/23 Aimee Mascorro MD [facility] [address], [address] [place] [address] Assigned Surgical Provider 11/23/22 12/20/22 Franny Shrestha PA-C [address] [place] [address] Assigned Surgical Provider 12/21/22 Amanda Ibrahim MD [address] [facility] [address] [facility] [address] [place] [address] Assigned Heart and Vascular Provider 01/18/23 [facility] [address] [place] [address] Assigned PCP 10/28/23 documented as of this encounter
--- OUTSIDE RECORDS SUMMARY | 2024-01-23 01:16 | XMS_ITS | Encounter Summary ---
Author Organization [place] Address [address] [place] [address] Care Team Providers Care Bookbinder Apprentice Name Role Phone Page, Nikki Vega RN Unavailable Unavailable rByon Bell MD Primary Care Provider + [phone] Bryon Bell MD Unavailable [phone] Amanda Ibrahim MD Unavailable [phone] Laureen Dye APRN, CNP Unavailable [phone] Franny Shrestha PA-C Unavailable Franny Shrestha PA-C Unavailable Anyi Broderick MD Unavailable Bryon Bell MD Unavailable [phone] Anyi Broderick MD Unavailable Vitaliy Solo MD Primary Care Provider Bryon Bell MD Unavailable Anyi Broderick MD Unavailable Aimee Mascorro MD Unavailable [phone] Franny Shrestha PA-C Unavailable [phone] Amanda Ibrahim MD Unavailable [phone] [facility] Unavailabl e Encounter Details Date Type Department Care Team (Late st Contact Info) Description 04/19/2021 MyC Medical Advice [facility] Heart [facility] [address] [facility] [employer] [address] [place] [address] Amanda Ibrahim MD [address] [facility] [address] [place] [address] Social History Tobacco Use Types Packs/Day Years [...] on filedocumented in this encounter Care Teams Bookbinder Apprentice Relationship Specialty Start Date End Date Bryon Bell MD PCP - General Family Medicine 03/06/21 05/05/22 Vitaliy Solo MD [facility] [address] [place] [address] PCP - General Emergency Medicine 07/19/22 Nikki Pierre RN Personal Advocate & Liaison (PAL) Family Medicine 03/06/21 03/25/22 [place] [address] [facility] [place] [address] Assigned PCP 03/11/21 01/18/22 Amanda Ibrahim MD [address] [place] [address] Assigned Heart and Vascular Provider 04/22/21 05/26/21 Laureen Dye APRN STRADDLE BUG DRIVER [address] [place] [address] Assigned Heart and Vascular Provider 05/27/21 01/17/23 Franny Shrestha PA-C [address] [place] [address] Physician Human Resource Intern Urology 10/01/21 Franny Shrestha PA-C [address] [place] [address] Assigned Surgical Provider 12/29/21 11/22/22 [place] [address] [place] [address] Assigned PCP 01/19/22 03/08/22 [place] [address] [place] [address] Assigned PCP 03/09/22 03/22/22 [place] [address] [place] [address] Assigned PCP 03/23/22 06/21/22 [place] [address] [place] [address] Family Medicine 08/27/22 [place] [address] [address] Assigned PCP 08/31/22 10/27/23 Aimee Mascorro MD [facility] [address], [address] [place] [address] Assigned Surgical Provider 11/23/22 12/20/22 Franny Shrestha PA-C [address] [place] [address] Assigned Surgical Provider 12/21/22 Amanda Ibrahim MD [address] [facility] [address] [place] [address] Assigned Heart and Vascular Provider 01/18/23 [facility] [address] [place] [address] Assigned PCP 10/28/23 documented as of this encounter
--- OUTSIDE RECORDS SUMMARY | 2024-01-23 01:16 | XMS_ITS | Encounter Summary ---
Author Organization [place] Address [address] [place] [address] Care Team Providers Care Physical Plant Manager Name Role Phone Page, Nikki Vega RN Unavailable Unavailable Bryon Bell MD Primary Care Provider Laureen Dye APRN FIELD SALES MANAGER Unavailable [phone] Franny Shrestha PA-C Unavailable Franny Shrestha PA-C Unavailable Anyi Broderick MD Unavailable Bryon Bell MD Unavailable [phone] Anyi Broderick MD Unavailable Vitaliy Solo MD Primary Care Provider Bryon Bell MD Unavailable [phone] Anyi Broderick MD Unavailable Aimee Mascorro MD Unavailable [phone] Franny Shrestha PA-C Unavailable Amanda Ibrahim MD Unavailable [phone] [facility] Unavailabl e Encounter Details Date Type Department Care Team (Late st Contact Info) Description 02/06/2022 [facility] [address] [place] [phone] Nikki Pierre, RN Social History Tobacco Use [...] on filedocumented in this encounter Care Teams Physical Plant Manager Relationship Specialty Start Date End Date Bryon Bell MD PCP - General Family Medicine 03/06/21 05/05/22 Vitaliy Solo MD [facility] & [address] [address] PCP - General Emergency Medicine 07/19/22 Nikki Pierre, RN Personal Advocate & Liaison (PAL) Family Medicine 03/06/21 03/25/22 Laureen Dye APRN FIELD SALES MANAGER [address] [place] [address] Assigned Heart and Vascular Provider 05/27/21 01/17/23 Franny Shrestha PA-C [address] [place] [address] Physician Geothermal Sheet Metal Worker Urology 10/01/21 Franny Shrestha PA-C [address] [place] [address] Assigned Surgical Provider 12/29/21 11/22/22 [place] [address] [place] [address] Assigned PCP 01/19/22 03/08/22 [place] [address] [place] [address] Assigned PCP 03/09/22 03/22/22 [place] [address] [place] [address] Assigned PCP 03/23/22 06/21/22 [place] [address] [place] [address] Family Medicine 08/27/22 [place] [address] [place] [address] Assigned PCP 08/31/22 10/27/23 Aimee Mascorro MD [facility] [address], [address] [place] [address] Assigned Surgical Provider 11/23/22 12/20/22 Franny Shrestha PA-C [address] [place] [address] Assigned Surgical Provider 12/21/22 Amanda Ibrahim MD [address] [facility] [address] [place] [address] Assigned Heart and Vascular Provider 01/18/23 [facility] [address] [place] [address] Assigned PCP 10/28/23 documented as of this encounter
--- OUTSIDE RECORDS SUMMARY | 2024-01-23 01:16 | XMS_ITS | Encounter Summary ---
Author Organization [place] Address [address] [place] [address] Care Team Providers Care Golf Teacher Name Role Phone Page, Nikki Vega RN Unavailable Unavailable Bryon Bell MD Primary Care Provider [phone] Bryon Bell MD Unavailable [phone] Laureen Dye APRN NIGHT STOCKER Unavailable [phone] Franny Shrestha PA-C Unavailable Franny Shrestha PA-C Unavailable Anyi Broderick MD Unavailable Bryon Bell MD Unavailable Anyi Broderick MD Unavailable Vitaliy Solo MD Primary Care Provider Bryon Bell MD Unavailable [phone] Anyi Broderick MD Unavailable Aimee Mascorro MD Unavailable [phone] Franny Shrestha PA-C Unavailable Amanda Ibrahim MD Unavailable [phone] [facility] Unavailabl e Encounter Details Date Type Department Care Team (Late st Contact Info) Description 12/07/2021 [facility] [address] [place] [phone] Franny Shrestha PA-C [address] [place] [address] Social History Tobacco Use Types Packs/Day Years [...] on filedocumented in this encounter Care Teams Golf Teacher Relationship Specialty Start Date End Date Bryon Bell MD PCP - General Family Medicine 03/06/21 05/05/22 Vitaliy Solo MD [address] [address] PCP - General Emergency Medicine 07/19/22 Nikki Pierre RN Personal Advocate & Liaison (PAL) Family Medicine 03/06/21 03/25/22 [place] [address] [place] [address] Assigned PCP 03/11/21 01/18/22 Laureen Dye APRN NIGHT STOCKER [address] [place] [address] Assigned Heart and Vascular Provider 05/27/21 01/17/23 Franny Shrestha PA-C [address] [place] [address] Physician Manufacturer Representative Urology 10/01/21 Franny Shrestha PA-C [address] [place] [address] Assigned Surgical Provider 12/29/21 11/22/22 [place] [address] [place] [address] Assigned PCP 01/19/22 03/08/22 [place] [address] [place] [address] Assigned PCP 03/09/22 03/22/22 [place] [address] [place] [address] Assigned PCP 03/23/22 06/21/22 [place] [address] [place] [address] Family Medicine 08/27/22 [place] [address] [place] [address] Assigned PCP 08/31/22 10/27/23 Aimee Mascorro MD [facility] [address] [place] [address] Assigned Surgical Provider 11/23/22 12/20/22 Franny Shrestha PA-C [address] [facility] [address] [place] [address] Assigned Surgical Provider 12/21/22 Amanda Ibrahim MD [address] [facility] [address] [facility] [address] [place] [address] Assigned Heart and Vascular Provider 01/18/23 [facility] [address] [place] [address] Assigned PCP 10/28/23 documented as of this encounter
--- OUTSIDE RECORDS SUMMARY | 2024-01-23 01:16 | XMS_ITS | Encounter Summary ---
Author Organization [place] Address [address] [place] [address] Care Team Providers Care Barrel Cap Setter Name Role Phone Page, Nikki Vega RN Unavailable Unavailable Bryon Bell MD Primary Care Provider + [phone] Bryon Bell MD Unavailable [phone] Laureen Dey APRN TOBACCO DIPPER Unavailable [phone] Franny Shrestha PA-C Unavailable Franny Shrestha PA-C Unavailable Anyi Broderick MD Unavailable Bryon Bell MD Unavailable [phone] Anyi Broderick MD Unavailable Vitaliy Solo MD Primary Care Provider Bryon Bell MD Unavailable [phone] Anyi Broderick MD Unavailable Aimee Mascorro MD Unavailable [phone] Franny Shrestha PA-C Unavailable Amanda Ibrahim MD Unavailable [phone] [facility] Unavailabl e Reason for Visit * Reason Onset Date Comments MyChart Communication 10/01/2021 KRAIG daley ch - results Encounter Details Date Type Department Care Team (Latest Contact Info) Description 10/01/2021 [facility] [id number] [place] [id number] Nikki Pierre RN [facility] Communication (PAL outreach - resu... Social History [...] reach attempts have been made. Letter sent- [facility] will monitor for f/u Nikki Pierre RN * Telephone Encounter - Nikki Pierre RN - 10/05/2021 12:18 PM CDT LM for call back - See below Nikki Pierre RN documented in this encounter Plan of Treatment Not on file documented as of this encounter Visit Diagnoses Not on filedocumented in this encounter Care Teams Barrel Cap Setter Relationship Specialty Start Date End Date Bryon Bell MD PCP - General Family Medicine 03/06/21 05/05/22 Vitaliy Solo MD [facility] [address] [place] [address] PCP - General Emergency Medicine 07/19/22 Nikki Pierre, RN Personal Advocate & Liaison (PAL) Family Medicine 03/06/21 03/25/22 [place] [address] [place] [address] Assigned PCP 03/11/21 01/18/22 Laureen Dye APRN [facility] [address] [place] [address] Assigned Heart and Vascular Provider 05/27/21 01/17/23 Franny Shrestha PA-C [address] [place] [address] Physician Anthropological Linguist Urology 10/01/21 Franny Shrestha PA-C [address] [place] [address] Assigned Surgical Provider 12/29/21 11/22/22 [place] [address] [place] [address] Assigned PCP 01/19/22 03/08/22 [place] [address] [place] [address] Assigned PCP 03/09/22 03/22/22 [place] [address] [place] [address] Assigned PCP 03/23/22 06/21/22 [place] [address] [place] [address] Family Medicine 08/27/22 [place] [address] [place] [address] Assigned PCP 08/31/22 10/27/[address] [facility] [address] [place] [address] Assigned Surgical Provider 11/23/22 12/20/22 Franny Shrestha PA-C [address] [place] [address] Assigned Surgical Provider 12/21/22 Amanda Ibrahim MD [address] [facility] [address] [place] [address] Assigned Heart and Vascular Provider 01/18/23 [facility] [address] [place] [address] Assigned PCP 10/28/23 documented as of this encounter
--- OUTSIDE RECORDS SUMMARY | 2024-01-23 01:16 | XMS_ITS | Encounter Summary ---
Author Organization [place] Address [address] [place] [address] Care Team Providers Care It Security Specialist Name Role Phone Page, Nikki Vega RN Unavailable Unavailable Bryon Bell MD Primary Care Provider [phone] Bryon Bell MD Unavailable [phone] Laureen Dye APRN MACHINE ZIPPER TRIMMER Unavailable [phone] Franny Shrestha PA-C Unavailable Franny Shrestha PA-C Unavailable Anyi Broderick MD Unavailable Bryon Bell MD Unavailable Anyi Broderick MD Unavailable Vitaliy Solo MD Primary Care Provider Bryon Bell MD Unavailable [phone] Anyi Broderick MD Unavailable Aimee Mascorro MD Unavailable [phone] Franny Shrestha PA-C Unavailable Amanda Ibrahim MD Unavailable [phone] [facility] Unavailabl e Reason for Visit * Reason Onset Date Comments MyChart Communication 06/06/2021 Encounter Details Date Type Department Care Team ([facility] st Contact Info) Description 06/06/2021 MyC Medical Advice [address] [address] [place] [address] [place] [address] MyChart Communication Social History Tobacco Use Types [...] COVID-19? No / Unsure 06/08/2021 1:05 PM ALMOND HULLER documented as of this encounter Plan of Treatment Not on file documented as of this encounter Visit Diagnoses Not on filedocumented in this encounter Care Teams It Security Specialist Relationship Specialty Start Date End Date Bryon Bell MD PCP - General Family Medicine 03/06/21 05/05/22 Vitaliy Solo MD [facility] [address] [place] [address] PCP - General Emergency Medicine 07/19/22 Nikki Pierre RN Personal Advocate & Liaison (PAL) Family Medicine 03/06/21 03/25/22 [place] [address] [place] [address] Assigned PCP 03/11/21 01/18/22 Dye Laureen Bergman APRN MACHINE ZIPPER TRIMMER [address] [place] [address] Assigned Heart and Vascular Provider 05/27/21 01/17/23 Franny Shrestha PA-C [address] [place] [address] Physician Surveillance Monitor Urology 10/01/21 Franny Shrestha PA-C [address] [place] [address] Assigned Surgical Provider 12/29/21 11/22/22 [place] [address] [place] [address] Assigned PCP 01/19/22 03/08/22 [place] [address] [place] [address] Assigned PCP 03/09/22 03/22/22 [place] [address] [place] [address] Assigned PCP 03/23/22 06/21/22 [place] [address] [place] [address] Family Medicine 08/27/22 [place] [address] [place] [address] Assigned PCP 08/31/22 10/27/[address] [facility] [address] , [address] [place] [address] Assigned Surgical Provider 11/23/22 12/20/22 Franny Shrestha PA-C [address] [place] [address] Assigned Surgical Provider 12/21/22 Amanda Ibrahim MD [address] [facility] [address] [facility] [address] [place] [address] Assigned Heart and Vascular Provider 01/18/23 [facility] [address] [place] [address] Assigned PCP 10/28/23 documented as of this encounter
--- OUTSIDE RECORDS SUMMARY | 2024-01-23 01:16 | XMS_ITS | Encounter Summary ---
Author Organization [place] Address [address] [place] [address] Care Team Providers Care Senior Electrical Design Engineer Name Role Phone Page, Nikki Vega RN Unavailable Unavailable Bryon Bell MD Primary Care Provider + [phone] Bryon Bell MD Unavailable [phone] Laureen Dye APRN LUMBER TRIPPER Unavailable [phone] Franny Shrestha PA-C Unavailable Franny Shrestha PA-C Unavailable [phone] Anyi Broderick MD Unavailable Bryon Bell MD Unavailable [phone] Anyi Broderick MD Unavailable Vitaliy Solo MD Primary Care Provider Bryon Bell MD Unavailable [phone] Anyi Broderick MD Unavailable Aimee Mascorro MD Unavailable [phone] Franny Shrestha PA-C Unavailable Amanda Ibrahim MD Unavailable [phone] [facility] Unavailabl e Encounter Details Date Type Department Care Team (Late st Contact Info) Description 09/27/2021 [facility] [id number] [place] [phone] [place] [address] [place], [place] [id number] Social History Tobacco Use Types Packs/Day Years [...] on filedocumented in this encounter Care Teams Senior Electrical Design Engineer Relationship Specialty Start Date End Date Bryon Bell MD PCP - General Family Medicine 03/06/21 05/05/[address] [facility] [address] [place] [address] PCP - General Emergency Medicine 07/19/22 Nikki Pierre, SHERMAN Personal Advocate & Liaison (PAL) Family Medicine 03/06/21 03/25/22 [place] [address] [place] [address] Assigned PCP 03/11/21 01/18/22 Laureen Dye APRN LUMBER TRIPPER [address] [place] [address] Assigned Heart and Vascular Provider 05/27/21 01/17/23 Franny Shrestha PA-C [address] [place] [address] Physician Horse Show Manager Urology 10/01/21 Franny Shrestha PA-C [address] [place] [address] Assigned Surgical Provider 12/29/21 11/22/22 [place] [address] [place] [address] Assigned PCP 01/19/22 03/08/22 [place] [address] [place] [address] Assigned PCP 03/09/22 03/22/22 [place] [address] [place] [address] Assigned PCP 03/23/22 06/21/22 [place] [address] [place] [address] Family Medicine 08/27/22 [place] [address] [place] [address] Assigned PCP 08/31/22 10/27/23 Aimee Mascorro MD [facility] [address], [address] [place] [address] Assigned Surgical Provider 11/23/22 12/20/22 Franny Shrestha PA-C [address] [place] [address] Assigned Surgical Provider 12/21/22 Amanda Ibrahim MD [address] [facility] [address] [place] [address] Assigned Heart and Vascular Provider 01/18/23 [facility] [address] [place] [address] Assigned PCP 10/28/23 documented as of this encounter
--- OUTSIDE RECORDS SUMMARY | 2024-01-23 01:16 | XMS_ITS | Encounter Summary ---
Author Organization [place] Address [address] [place] [address] Care Team Providers Care Pediatric Critical Care Nurse Name Role Phone Page, Nkiki Vega RN Unavailable Unavailable Bryon Bell MD Primary Care Provider + [phone] Bryon Bell MD Unavailable [phone] Amanda Ibrahim MD Unavailable [phone] Laureen Dye APRN, CNP Unavailable [phone] Franny ShresthaC Unavailable Franny Shrestha PA-C Unavailable [phone] Anyi Broderick MD Unavailable Bryon Bell MD Unavailable Anyi Broderick MD Unavailable Vitaliy Solo MD Primary Care Provider Bryon Bell MD Unavailable [phone] Anyi Broderick MD Unavailable Aimee Mascorro MD Unavailable [phone] Franny ShresthaC Unavailable Amanda Ibrahim MD Unavailable [phone] [facility] Unavailabl e Reason for Visit * Reason Onset Date Comments Outreach 05/14/2021 PAL Encounter Details Date Type Department Care Team (Late st Contact Info) Description 05/14/2021 [facility] Medical Advice [address] [address] Nikki Pierre, RN Outreach ([facility] ) Social History Tobacco Use Types Packs/Day [...] on filedocumented in this encounter Care Teams Pediatric Critical Care Nurse Relationship Specialty Start Date End Date Bryon Bell MD PCP - General Family Medicine 03/06/21 05/05/22 Vitaliy Solo MD [facility] [address] [place] [address] PCP - General Emergency Medicine 07/19/22 Nikki Pierre, RN Personal Advocate & Liaison (PAL) Family Medicine 03/06/21 03/25/22 [place] [address] [place] [address] Assigned PCP 03/11/21 01/18/22 Amanda Ibrahim MD [address] [place] [address] Assigned Heart and Vascular Provider 04/22/21 05/26/21 Hardik Laureen GUS Bergman PIECE HAND [address] [place] [address] Assigned Heart and Vascular Provider 05/27/21 01/17/23 Franny Shrestha PA-C [address] [place] [address] Physician Fiber Optics Supervisor Urology 10/01/21 Franny Shrestha PA-C [address] [place] [address] Assigned Surgical Provider 12/29/21 11/22/22 [place] [address] [place] [address] Assigned PCP 01/19/22 03/08/22 [place] [address] [place] [address] Assigned PCP 03/09/22 03/22/22 [place] [address] [place] [address] Assigned PCP 03/23/22 06/21/22 [place] [address] [address] [place], [place] [address] Family Medicine 08/27/22 [place] [address] [address] [place] [address] Assigned PCP 08/31/22 10/27/23 Aimee Mascorro MD [facility] [address] , [address] [place] [address] Assigned Surgical Provider 11/23/22 12/20/22 Franny Shrestha PA-C [address] [place] [address] Assigned Surgical Provider 12/21/22 Amanda Ibrahim MD [address] [facility] [address] [facility] [address] [place] [address] Assigned Heart and Vascular Provider 01/18/23 [facility] [address] [address] [place] [address] Assigned PCP 10/28/23 documented as of this encounter
--- OUTSIDE RECORDS SUMMARY | 2024-01-23 01:16 | XMS_ITS | Encounter Summary ---
Author Organization [place] Address [address] [place] [address] Care Team Providers Care Bread Slicer Machine Name Role Phone Page, Nikki Vega RN Unavailable Unavailable Bryon Bell MD Primary Care Provider + [phone] Bryon Bell MD Unavailable [phone] Amanda Ibrahim MD Unavailable [phone] Laureen Dye APRN, CNP Unavailable [phone] Franny ShresthaC Unavailable Franny Shrestha PA-C Unavailable Anyi Broderick MD Unavailable Bryon Bell MD Unavailable [phone] Anyi Broderick MD Unavailable Vitaliy Solo MD Primary Care Provider Bryon Bell MD Unavailable Anyi Broderick MD Unavailable Aimee Mascorro MD Unavailable [phone] Franny Shrestha PA-C Unavailable Amanda Ibrahim MD Unavailable [phone] [facility] Unavailabl e Reason for Visit * Reason Onset Date Comments MyChart Communication 04/09/2021 Encounter Details Date Type Department Care Team (Late st Contact Info) Description 04/09/[address] [address] [place] [address] [address] [place], [place] [id number] MyChart Communication Social History Tobacco Use Types [...] on filedocumented in this encounter Care Teams Bread Slicer Machine Relationship Specialty Start Date End Date Bryon Bell MD PCP - General Family Medicine 03/06/21 05/05/22 Vitaliy Solo MD [facility] [address] [place] [address] PCP - General Emergency Medicine 07/19/22 Nikki Pierre RN Personal Advocate & Liaison (PAL) Family Medicine 03/06/21 03/25/22 [place] [address] [place] [address] Assigned PCP 03/11/21 01/18/22 Amanda Ibrahim MD [address] [place] [address] Assigned Heart and Vascular Provider 04/22/21 05/26/21 Laureen Dye, CERTIFIED EMERGENCY VEHICLE TECHNICIAN FLOOR GRINDER [address] [place] [address] Assigned Heart and Vascular Provider 05/27/21 01/17/23 Franny Shrestha PA-C [address] [place] [address] Physician Assistant Department Manager Urology 10/01/21 Franny Shrestha PA-C [address] [place] [address] Assigned Surgical Provider 12/29/21 11/22/22 [place] [address] [place] [address] Assigned PCP 01/19/22 03/08/22 [place] [address] [place] [address] Assigned PCP 03/09/22 03/22/22 [place] [address] [place] [address] Assigned PCP 03/23/22 06/21/22 [place] [address] [place] [address] Family Medicine 08/27/22 [place] [address] [place] [address] Assigned PCP 08/31/22 10/27/23 Aimee Mascorro MD [facility] [address], [address] [place] [address] Assigned Surgical Provider 11/23/22 12/20/22 Franny Shrestha PA-C [address] [place] [address] Assigned Surgical Provider 12/21/22 Amanda Ibrahim MD [address] [facility] [address] [place] [address] Assigned Heart and Vascular Provider 01/18/23 [facility] [address] [address] [address] Assigned PCP 10/28/23 documented as of this encounter
--- OUTSIDE RECORDS SUMMARY | 2024-01-23 01:16 | XMS_ITS | Encounter Summary ---
Author Organization [place] Address [address] [place] [address] Care Team Providers Care Layout Man Name Role Phone Page, Nikki Vega RN Unavailable Unavailable Bryon Bell MD Primary Care Provider + [phone] Bryon Bell MD Unavailable [phone] Amanda Ibrahim MD Unavailable [phone] Laureen Dye APRN, CNP Unavailable [phone] Franny ShresthaC Unavailable Franny Shrestha PA-C Unavailable Anyi Broderick MD Unavailable Bryon Bell MD Unavailable [phone] Anyi Broderick MD Unavailable Vitaliy Solo MD Primary Care Provider Bryon Bell MD Unavailable Anyi Broderick MD Unavailable Aimee Mascorro MD Unavailable [phone] Franny Shrestha PA-C Unavailable Amanda Ibrahim MD Unavailable [phone] [facility] Unavailabl e Reason for Visit * Reason Onset Date Comments MyChart Communication 05/03/2021 Encounter Details Date Type Department Care Team (Late st Contact Info) Description 05/03/[address] [address] [place] [address] [address] [place], [place] [id number] MyChart Communication Social History Tobacco Use Types [...] filedocumented in this encounter Care Teams Layout Man Relationship Specialty Start Date End Date Bryon Bell MD PCP - General Family Medicine 03/06/21 05/05/22 Vitaliy Solo MD [facility] [address] [place] [address] PCP - General Emergency Medicine 07/19/22 Nikki Pierre RN Personal Advocate & Liaison (PAL) Family Medicine 03/06/21 03/25/22 [place] [address] [place] [address] Assigned PCP 03/11/21 01/18/22 Amanda Ibrahim MD [address] [place] [address] Assigned Heart and Vascular Provider 04/22/21 05/26/21 Laureen Dye, SUMO WRESTLER JAVA SUPPORT ENGINEER [address] [place] [address] Assigned Heart and Vascular Provider 05/27/21 01/17/23 Franny Shrestha PA-C [address] [place] [address] Physician Resource Specialist Teacher Urology 10/01/21 Franny Shrestha PA-C [address] [place] [address] Assigned Surgical Provider 12/29/21 11/22/22 [place] [address] [place] [address] Assigned PCP 01/19/22 03/08/22 [place] [address] [place] [address] Assigned PCP 03/09/22 03/22/22 [place] [address] [place] [address] Assigned PCP 03/23/22 06/21/22 [place] [address] [place] [address] Family Medicine 08/27/22 [place] [address] [place] [address] Assigned PCP 08/31/22 10/27/23 Aimee Mascorro MD [facility] [address] [place] [address] Assigned Surgical Provider 11/23/22 12/20/22 Franny Shrestha PA-C [address] [place] [address] Assigned Surgical Provider 12/21/22 Amanda Ibrahim MD [address] [facility] [address] [place] [address] Assigned Heart and Vascular Provider 01/18/23 [facility] [address] [place] [address] Assigned PCP 10/28/23 documented as of this encounter
--- OUTSIDE RECORDS SUMMARY | 2024-01-23 01:16 | XMS_ITS | Encounter Summary ---
Author Organization [place] Address [address] [place] [address] Care Team Providers Care Cutting Table Operator Name Role Phone Page, Nikki Vega RN Unavailable Unavailable Bryon Bell MD Primary Care Provider + [phone] Bryon Bell MD Unavailable [phone] Amanda Ibrahim MD Unavailable [phone] Laureen Dye APRN, CNP Unavailable [phone] Franny Shrestha PA-C Unavailable Franny Shrestha PA-C Unavailable Anyi Broderick MD Unavailable Bryon Bell MD Unavailable [phone] Anyi Broderick MD Unavailable Vitaliy Solo MD Primary Care Provider Bryon Bell MD Unavailable Anyi Broderick MD Unavailable Aimee Mascorro MD Unavailable [phone] Franny Shrestha PA-C Unavailable Amanda Ibrahim MD Unavailable [phone] [facility] Unavailabl e Encounter Details Date Type Department Care Team (Late st Contact Info) Description 04/19/2021 MyC Medical Advice [facility] Heart [facility] [address] [facility] [address] [place] [address] Amanda Ibrahim MD [address] [facility] [address] [place] [address] Social History Tobacco Use Types Packs/Day Years [...] on filedocumented in this encounter Care Teams Cutting Table Operator Relationship Specialty Start Date End Date Bryon Bell MD PCP - General Family Medicine 03/06/21 05/05/22 Vitaliy Solo MD [facility] [address] [place] [address] PCP - General Emergency Medicine 07/19/22 Nikki Pierre RN Personal Advocate & Liaison (PAL) Family Medicine 03/06/21 03/25/22 [place] [address] [facility] [address] Assigned PCP 03/11/21 01/18/22 Amanda Ibrahim MD [address] [place] [address] Assigned Heart and Vascular Provider 04/22/21 05/26/21 Laureen Dye APRN FIELD PROPERTY LOSS SPECIALIST [address] [place] [address] Assigned Heart and Vascular Provider 05/27/21 01/17/23 Franny Shrestha PA-C [address] [place] [address] Physician Fellmongering Machine Operator Urology 10/01/21 Franny Shrestha PA-C [address] [place] [address] Assigned Surgical Provider 12/29/21 11/22/22 [place] [address] [place] [address] Assigned PCP 01/19/22 03/08/22 [place] [address] [place] [address] Assigned PCP 03/09/22 03/22/22 [place] [address] [place] [address] Assigned PCP 03/23/22 06/21/22 [place] [address] [place] [address] Family Medicine 08/27/22 [place] [address] [address] [place] [address] Assigned PCP 08/31/22 10/27/23 Aimee Mascorro MD [facility] [address] [place] [address] Assigned Surgical Provider 11/23/22 12/20/22 Franny Shrestha PA-C [address] [place] [address] Assigned Surgical Provider 12/21/22 Amanda Ibrahim MD [address] [facility] [address] [facility] [address] [place] [address] Assigned Heart and Vascular Provider 01/18/23 [facility] [address] [place] [address] Assigned PCP 10/28/23 documented as of this encounter
--- OUTSIDE RECORDS SUMMARY | 2024-01-23 01:16 | XMS_ITS | Encounter Summary ---
Author Organization [place] Address [address] [place] [address] Care Team Providers Care Bursar Name Role Phone Page, Nikki Vega RN Unavailable Unavailable Bryon Bell MD Primary Care Provider + [phone] Bryon Bell MD Unavailable [phone] Amanda Ibrahim MD Unavailable [phone] Laureen Dye APRN, CNP Unavailable [phone] Franny Shrestha PA-C Unavailable Franny Shrestha PA-C Unavailable Anyi Broderick MD Unavailable Bryon Bell MD Unavailable [phone] Anyi Broderick MD Unavailable Vitaliy Solo MD Primary Care Provider Bryon Bell MD Unavailable Anyi Broderick MD Unavailable Aimee Mascorro MD Unavailable [phone] Franny Shrestha PA-C Unavailable Amanda Ibrahim MD Unavailable [phone] [facility] Unavailabl e Encounter Details Date Type Department Care Team (Late st Contact Info) Description 05/14/2021 MyC Medical Advice [facility] Heart [facility] [address] [facility] [address] [place] [address] Amanda Ibrahim MD [address] [facility] [address] [place] [id number] Social History Tobacco Use Types Packs/Day Years [...] on filedocumented in this encounter Care Teams Bursar Relationship Specialty Start Date End Date Bryon Bell MD PCP - General Family Medicine 03/06/21 05/05/22 Vitaliy Solo MD [facility] [address] [place] [address] PCP - General Emergency Medicine 07/19/22 Nikki Pierre RN Personal Advocate & Liaison (PAL) Family Medicine 03/06/21 03/25/22 [place] [address] [facility] [place] [address] Assigned PCP 03/11/21 01/18/22 Amanda Ibrahim MD [address] [place] [address] Assigned Heart and Vascular Provider 04/22/21 05/26/21 Laureen Dye APRN INTERACTIVE ART DIRECTOR [address] [place] [address] Assigned Heart and Vascular Provider 05/27/21 01/17/23 Franny Shrestha PA-C [address] [place] [address] Physician Retail Merchandising Specialist Urology 10/01/21 Franny Shrestha PA-C [address] [place] [address] Assigned Surgical Provider 12/29/21 11/22/22 [place] [address] [place] [address] Assigned PCP 01/19/22 03/08/22 [place] [address] [place] [address] Assigned PCP 03/09/22 03/22/22 [place] [address] [place] [address] Assigned PCP 03/23/22 06/21/22 [place] [address] [place] [address] Family Medicine 08/27/22 [place] [address] [place] [address] Assigned PCP 08/31/22 10/27/23 Aimee Mascorro MD [facility] [address] [place] [address] Assigned Surgical Provider 11/23/22 12/20/22 Franny Shrestha PA-C [address] [place] [address] Assigned Surgical Provider 12/21/22 Amanda Ibrahim MD [address] [facility] [address] [facility] [address] [place] [address] Assigned Heart and Vascular Provider 01/18/23 [facility] [address] [place] [address] Assigned PCP 10/28/23 documented as of this encounter
--- OUTSIDE RECORDS SUMMARY | 2024-01-23 01:16 | XMS_ITS | Encounter Summary ---
Author Organization [place] Address [address] [place] [address] Care Team Providers Care Systems Analysis Manager Name Role Phone Page, Nikki Vega RN Unavailable Unavailable Bryon Bell MD Primary Care Provider + [phone] Bryon Bell MD Unavailable [phone] Amanda Ibrahim MD Unavailable [phone] Laureen Dye APRN, CNP Unavailable [phone] Franny Shrestha PA-C Unavailable Franny Shrestha PA-C Unavailable Anyi Broderick MD Unavailable Bryon Bell MD Unavailable [phone] Anyi Broderick MD Unavailable Vitaliy Solo MD Primary Care Provider Bryon Bell MD Unavailable Anyi Broderick MD Unavailable Aimee Mascorro MD Unavailable [phone] Franny Shrestha PA-C Unavailable Amanda Ibrahim MD Unavailable [phone] [facility] Unavailabl e Encounter Details Date Type Department Care Team (Late st Contact Info) Description 04/18/2021 [facility] Adv[facility] [address] [address] [place] [address] [place] [address] Social History Tobacco Use Types Packs/Day Years [...] on filedocumented in this encounter Care Teams Systems Analysis Manager Relationship Specialty Start Date End Date Bryon Bell MD PCP - General Family Medicine 03/06/21 05/05/22 Vitaliy Solo MD [facility] [address] [place] [address] PCP - General Emergency Medicine 07/19/22 Nikki Pierre RN Personal Advocate & Liaison (PAL) Family Medicine 03/06/21 03/25/22 [place] [address] [place] [address] Assigned PCP 03/11/21 01/18/22 Amanda Ibrahim MD [address] [place] [address] Assigned Heart and Vascular Provider 04/22/21 05/26/21 Hardik Laureen Madalyn, SCOURING MACHINE OPERATOR CANAL BOAT OPERATOR [address] [place] [address] Assigned Heart and Vascular Provider 05/27/21 01/17/23 Franny Shrestha PA-C [address] [place] [address] Physician Insurance Compliance Analyst Urology 10/01/21 Franny Shrestha PA-C [address] [place] [address] Assigned Surgical Provider 12/29/21 11/22/22 [place] [address] [place] [address] Assigned PCP 01/19/22 03/08/22 [place] [address] [place] [address] Assigned PCP 03/09/22 03/22/22 [place] [address] [place] [address] Assigned PCP 03/23/22 06/21/22 [place] [address] [place] [address] Family Medicine 08/27/22 [place] [address] [place] [address] Assigned PCP 08/31/22 10/27/23 Aimee Mascorro MD [facility] [address] [place] [address] Assigned Surgical Provider 11/23/22 12/20/22 Franny Shrestha PA-C [address] [place] [address] Assigned Surgical Provider 12/21/22 Amanda Ibrahim MD [address] [facility] [address] [place] [address] Assigned Heart and Vascular Provider 01/18/23 [facility] [address] [place] [address] Assigned PCP 10/28/23 documented as of this encounter
--- OUTSIDE RECORDS SUMMARY | 2024-01-23 01:16 | XMS_ITS | Encounter Summary ---
Author Organization [place] Address [address] [place] [address] Care Team Providers Care Deck Mate Name Role Phone Page, Nikki Vega RN Unavailable Unavailable Bryon Bell MD Primary Care Provider [phone] Bryon Bell MD Unavailable [phone] Laureen Dye APRN CAKE FROSTER Unavailable [phone] Franny Shrestha PA-C Unavailable Franny Shrestha PA-C Unavailable Anyi Broderick MD Unavailable Bryon Bell MD Unavailable Anyi Broderick MD Unavailable Vitaliy Solo MD Primary Care Provider Bryon Bell MD Unavailable [phone] Anyi Broderick MD Unavailable Aimee Mascorro MD Unavailable [phone] Franny Shrestha PA-C Unavailable Amanda Ibrahim MD Unavailable [phone] [facility] Unavailabl e Reason for Visit * Reason Onset Date Comments Outreach 10/10/2021 PAL Encounter Details Date Type Department Care Team (Late st Contact Info) Description 10/10/2021 [facility] [address] [place] [address] [place] [address] [place] [address] Outreach (PAL) Social History Tobacco Use Types [...] on filedocumented in this encounter Care Teams Deck Mate Relationship Specialty Start Date End Date Bryon Bell MD PCP - General Family Medicine 03/06/21 05/05/[address] [facility] [address] [place] [address] PCP - General Emergency Medicine 07/19/22 Nikki Pierre RN Personal Advocate & Liaison (PAL) Family Medicine 03/06/21 03/25/22 [place] [address] [place] [address] Assigned PCP 03/11/21 01/18/22 Hardik Laureen GUS Bergman CAKE FROSTER [address] [place] [address] Assigned Heart and Vascular Provider 05/27/21 01/17/23 Franny Shrestha PA-C [address] [place] [address] Physician Senior Analyst Urology 10/01/21 Franny Shrestha PA-C [address] [place] [address] Assigned Surgical Provider 12/29/21 11/22/22 [place] [address] [place] [address] Assigned PCP 01/19/22 03/08/22 [place] [address] [place] [address] Assigned PCP 03/09/22 03/22/22 [place] [address] [place] [address] Assigned PCP 03/23/22 06/21/22 [place] [address] [place] [address] Family Medicine 08/27/22 [place] [address] [place] [address] Assigned PCP 08/31/22 10/27/23 Aimee Mascorro MD [facility] [address] , [address] [place] [address] Assigned Surgical Provider 11/23/22 12/20/22 Franny Shrestha PA-C [address] [place] [address] Assigned Surgical Provider 12/21/22 Amanda Ibrahim MD [address] [facility] [address] [place] [address] Assigned Heart and Vascular Provider 01/18/23 [facility] [address] [place] [address] Assigned PCP 10/28/23 documented as of this encounter
--- OUTSIDE RECORDS SUMMARY | 2024-01-23 01:16 | XMS_ITS | Encounter Summary ---
Author Organization [place] Address [address] [place] [address] Care Team Providers Care Maintenance Services Dispatcher Name Role Phone Page, Nikki Vega RN Unavailable Unavailable Bryon Bell MD Primary Care Provider + [phone] Bryon Bell MD Unavailable [phone] Amanda Ibrahim MD Unavailable [phone] Laureen Dye APRN, CNP Unavailable [phone] Franny ShresthaC Unavailable Franny Shrestha PA-C Unavailable Anyi Broderick MD Unavailable Bryon Bell MD Unavailable [phone] Anyi Broderick MD Unavailable Vitaliy Solo MD Primary Care Provider Bryon Bell MD Unavailable Anyi Broderick MD Unavailable Aimee Mascorro MD Unavailable [phone] Franny Shrestha PA-C Unavailable Amanda Ibrahim MD Unavailable [phone] [facility] Unavailabl e Reason for Visit * Reason Onset Date Comments MyChart Communication 05/08/2021 Encounter Details Date Type Department Care Team (Late st Contact Info) Description 05/08/[address] [address] [place] [address] [address] [place], [place] [phone] MyChart Communication Social History Tobacco Use Types [...] on filedocumented in this encounter Care Teams Maintenance Services Dispatcher Relationship Specialty Start Date End Date Bryon Bell MD PCP - General Family Medicine 03/06/21 05/05/22 Vitaliy Solo MD [facility] [address] [place] [address] PCP - General Emergency Medicine 07/19/22 Nikki Pierer RN Personal Advocate & Liaison (PAL) Family Medicine 03/06/21 03/25/22 [place] [address] [place] [address] Assigned PCP 03/11/21 01/18/22 Amanda Ibrahim MD [address] [place] [address] Assigned Heart and Vascular Provider 04/22/21 05/26/21 Laureen Dye, OPHTHALMIC MEDICAL TECHNOLOGIST STROKE BELT SANDER OPERATOR [address] [place] [address] Assigned Heart and Vascular Provider 05/27/21 01/17/23 Franny Shrestha PA-C [address] [place] [address] Physician Gastroenterology Professor Urology 10/01/21 Franny Shrestha PA-C [address] [place] [address] Assigned Surgical Provider 12/29/21 11/22/22 [place] [address] [place] [address] Assigned PCP 01/19/22 03/08/22 [place] [address] [place] [address] Assigned PCP 03/09/22 03/22/22 [place] [address] [place] [address] Assigned PCP 03/23/22 06/21/22 [place] [address] [place] [address] Family Medicine 08/27/22 [place] [address] [place] [address] Assigned PCP 08/31/22 10/27/23 Aimee Mascorro MD [facility] [address] [place] [address] Assigned Surgical Provider 11/23/22 12/20/22 Franny Shrestha PA-C [address] [place] [address] Assigned Surgical Provider 12/21/22 Amanda Ibrahim MD [address] [facility] [address] [place] [address] Assigned Heart and Vascular Provider 01/18/23 [facility] [address] [address] Assigned PCP 10/28/23 documented as of this encounter
--- OUTSIDE RECORDS SUMMARY | 2024-01-23 01:16 | XMS_ITS | Encounter Summary ---
Author Organization [place] Address [address] [place] [address] Care Team Providers Care Paunch Trimmer Name Role Phone Page, Nikki Vega RN Unavailable Unavailable Bryon Bell MD Primary Care Provider + [phone] Bryon Bell MD Unavailable [phone] Laureen Dye APRN REMOTE SENSING SPECIALIST Unavailable [phone] Franny Shrestha PA-C Unavailable Franny Shrestha PA-C Unavailable Anyi Broderick MD Unavailable Bryon Bell MD Unavailable [phone] Anyi Broderick MD Unavailable Vitaliy Solo MD Primary Care Provider Bryon Bell MD Unavailable [phone] Anyi Broderick MD Unavailable Aimee Macsorro MD Unavailable [phone] Franny Shrestha PA-C Unavailable Amanda Ibrahim MD Unavailable [phone] [facility] Unavailabl e Encounter Details Date Type Department Care Team (Late st Contact Info) Description 09/11/2021 [facility] [address] [place] [phone] Nikki Pierre RN Social History Tobacco Use [...] COVID-19? 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 documented as of this encounter Plan of Treatment Not on file documented as of this encounter Visit Diagnoses Not on filedocumented in this encounter Care Teams Paunch Trimmer Relationship Specialty Start Date End Date Bryon Bell MD PCP - General Family Medicine 03/06/21 05/05/22 Vitaliy Solo MD [facility] [address] [place] [address] PCP - General Emergency Medicine 07/19/22 Nikki Pierre RN Personal Advocate & Liaison (PAL) Family Medicine 03/06/21 03/25/22 [place] [address] [place] [address] Assigned PCP 03/11/21 01/18/22 Laureen Dye APRN REMOTE SENSING SPECIALIST [address] [place] [address] Assigned Heart and Vascular Provider 05/27/21 01/17/23 Franny Shrestha PA-C [address] [place] [address] Physician Sap Fico Architect Urology 10/01/21 Franny Shrestha PA-C [address] [place] [address] Assigned Surgical Provider 12/29/21 11/22/22 [place] [address] [place] [address] Assigned PCP 01/19/22 03/08/22 [place] [address] [place] [address] Assigned PCP 03/09/22 03/22/22 [place] [address] [place] [address] Assigned PCP 03/23/22 06/21/22 [place] [address] [place] [address] Family Medicine 08/27/22 [place] [address] [place] [address] Assigned PCP 08/31/22 10/27/23 Aimee Mascorro MD [facility] [address] [place] [address] Assigned Surgical Provider 11/23/22 12/20/22 Franny Shrestha PA-C [address] [facility] [address] [place] [address] Assigned Surgical Provider 12/21/22 Amanda Ibrahim MD [address] [facility] [address] [facility] [address] [place] [address] Assigned Heart and Vascular Provider 01/18/23 [facility] [address] [place] [address] Assigned PCP 10/28/23 documented as of this encounter
--- OUTSIDE RECORDS SUMMARY | 2024-01-23 01:16 | XMS_ITS | Encounter Summary ---
Author Organization [place] Address [address] [place] [address] Care Team Providers Care Configuration Analyst Name Role Phone Page, Nikki Vega RN Unavailable Unavailable Bryon Bell MD Primary Care Provider + [phone] Bryon Bell MD Unavailable [phone] Laureen Dye APRN SATELLITE PROJECT SITE MONITOR Unavailable [phone] Franny Shrestha PA-C Unavailable [phone] Franny Shrestha PA-C Unavailable [phone] Anyi Broderick MD Unavailable Bryon Bell MD Unavailable Anyi Broderick MD Unavailable Vitaliy Solo MD Primary Care Provider Bryon Bell MD Unavailable [phone] Anyi Broderick MD Unavailable Aimee Mascorro MD Unavailable [phone] Franny Shrestha PA-C Unavailable Amanda Ibrahim MD Unavailable [phone] [facility] Unavailabl e Encounter Details Date Type Department Care Team (Late st Contact Info) Description 08/29/2021 [facility] [address] [place] [address] Nikki Pierre RN Social History Tobacco Use [...] COVID-19? 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 documented as of this encounter Plan of Treatment Not on file documented as of this encounter Visit Diagnoses Not on filedocumented in this encounter Care Teams Configuration Analyst Relationship Specialty Start Date End Date Bryon Bell MD PCP - General Family Medicine 03/06/21 05/05/22 Vitaliy Solo MD [facility] [address] [place] [address] PCP - General Emergency Medicine 07/19/22 Nikki Pierre, RN Personal Advocate & Liaison (PAL) Family Medicine 03/06/21 03/25/22 [place] [address] [place] [address] Assigned PCP 03/11/21 01/18/22 Laureen Dye, PATIENT SUPPORT SPECIALIST SATELLITE PROJECT SITE MONITOR [address] [place] [address] Assigned Heart and Vascular Provider 05/27/21 01/17/23 Franny Shrestha PA-C [address] [place] [address] Physician Beauty Sales Advisor Urology 10/01/21 Franny Shrestha PA-C [address] [place] [address] Assigned Surgical Provider 12/29/21 11/22/22 [place] [address] [place] [address] Assigned PCP 01/19/22 03/08/22 [place] [address] [place] [address] Assigned PCP 03/09/22 03/22/22 [place] [address] [place] [address] Assigned PCP 03/23/22 06/21/22 [place] [address] [place] [address] Family Medicine 08/27/22 [place] [address] [place] [address] Assigned PCP 08/31/22 10/27/23 Aimee Mascorro MD [place] [address] [place] [address] Assigned Surgical Provider 11/23/22 12/20/22 Franny Shrestha PA-C [address] [place] [address] Assigned Surgical Provider 12/21/22 Amanda Ibrahim MD [address] [facility] [address] [place] [address] Assigned Heart and Vascular Provider 01/18/23 [facility] [address] [place] [address] Assigned PCP 10/28/23 documented as of this encounter
--- OUTSIDE RECORDS SUMMARY | 2024-01-23 01:17 | XMS_ITS | Encounter Summary ---
Author Organization [place] Address [address] [place] [address] Care Team Providers Care Housekeeper Manager Name Role Phone No Ref-Primary, Physician Primary Care Provider Bryon Bell MD Unavailable [phone] Bryon Bell MD Unavailable [phone] Anyi Broderick MD Unavailable Nikki Pierre RN Unavailable Unavailable Bryon Bell MD Primary Care Provider + [phone] Bryon Bell MD Unavailable Amanda Ibrahim MD Unavailable [phone] Laureen Dye APRN CORE MAN Unavailable [phone] Franny Shrestha-C Unavailable [phone] Franny Shrestha PA-C Unavailable [phone] Anyi Broderick MD Unavailable Bryon Bell MD Unavailable Anyi Broderick MD Unavailable Vitaliy Solo MD Primary Care Provider Bryon Bell MD Unavailable Anyi Broderick MD Unavailable Aimee Mascorro MD Unavailable [phone] Franny Shrestha PA-C Unavailable Amanda Ibrahim MD Unavailable [facility] Unavailabl e Encounter Details Date Type Department Care Team (Late st Contact Info) Description 08/26/2018 MyC Medical Advice [facility] [address] [place] [phone] [place] [address] [place] [address] Social History Tobacco Use Types Packs/Day Years [...] on filedocumented in this encounter Care Teams Housekeeper Manager Relationship Specialty Start Date End Date No Ref-Primary, Physician PCP - General 08/14/18 03/05/21 [place] [address] [place] [address] PCP - Assigned PCP 07/30/18 09/08/18 Bryon Bell MD PCP - General Family Medicine 03/06/21 05/05/22 Vitaliy Solo MD [facility] [address] [place] [address] PCP - General Emergency Medicine 07/19/22 [place] [address] [place] [address] Assigned PCP 07/30/18 01/18/21 [place] [address] [place] [address] Assigned PCP 01/19/21 03/10/21 Nikki Pierre RN Personal Advocate & Liaison (PAL) Family Medicine 03/06/21 03/25/22 [place] [address] [place] [address] Assigned PCP 03/11/21 01/18/22 Amanda Ibrahim MD [address] [place] [address] Assigned Heart and Vascular Provider 04/22/21 05/26/21 Laureen Dye APRN CORE MAN [address] [place] [address] Assigned Heart and Vascular Provider 05/27/21 01/17/23 Franny Shrestha PA-C [address] [place] [address] Physician Concrete Form Setter And Finisher Urology 10/01/21 Franny Shrestha PA-C [address] [place] [address] Assigned Surgical Provider 12/29/21 11/22/22 [place] [address] [place] [address] Assigned PCP 01/19/22 03/08/22 [place] [address] [place] [address] Assigned PCP 03/09/22 03/22/22 [place] [address] [place] [address] Assigned PCP 03/23/22 06/21/22 [place] [address] [place] [address] Family Medicine 08/27/22 [place] [address] [place] [address] Assigned PCP 08/31/22 10/27/23 Aimee Mascorro MD [facility] [address] [place] [address] Assigned Surgical Provider 11/23/22 12/20/22 Franny Shrestha PA-C [address] [place] [address] Assigned Surgical Provider 12/21/22 Amanda Ibrahim MD [address] [facility] [address] [place] [address] Assigned Heart and Vascular Provider 01/18/23 [facility] [address] [place] [address] Assigned PCP 10/28/23 documented as of this encounter
--- OUTSIDE RECORDS SUMMARY | 2024-01-23 01:17 | XMS_ITS | Encounter Summary ---
Author Organization [place] Address [address] [place] [address] Care Team Providers Care Aviation Boatswain'S Mate Name Role Phone No Ref-Primary, Physician Primary Care Provider Bryon Bell MD Unavailable [phone] Bryon Bell MD Unavailable [phone] Anyi Broderick MD Unavailable Nikki Pierre RN Unavailable Unavailable Bryon Bell MD Primary Care Provider + [phone] Bryon Bell MD Unavailable Amanda Ibrahim MD Unavailable [phone] Laureen Dye APRN [facility] Unavailable [phone] Franny Shrestha-C Unavailable [phone] Franny Shrestha PA-C Unavailable [phone] Anyi Broderick MD Unavailable Bryon Bell MD Unavailable Anyi Broderick MD Unavailable Vitaliy Solo MD Primary Care Provider Bryon Bell MD Unavailable [phone] Anyi Broderick MD Unavailable Aimee Mascorro MD Unavailable [phone] Franny Shrestha PA-C Unavailable Amanda Ibrahim MD Unavailable [facility] Unavailabl e Reason for Visit * Reason Onset Date Comments MyChart Communication 08/26/2018 Encounter Details Date Type Department Care Team (Late st Contact Info) Description 08/26/2018 MyC Medical Advice [facility] [address] [place] [phone] [place] [address] [place], [place] [phone] MyChart Communication Social History Tobacco Use Types [...] on filedocumented in this encounter Care Teams Aviation Boatswain'S Mate Relationship Specialty Start Date End Date No Ref-Primary, Physician PCP - General 08/14/18 03/05/21 [place] [address] [place] [address] PCP - Assigned PCP 07/30/18 09/08/18 Bryon Bell MD PCP - General Family Medicine 03/06/21 05/05/22 Vitaliy Solo MD [facility] [address] [place] [address] PCP - General Emergency Medicine 07/19/22 [place] [address] [place] [address] Assigned PCP 07/30/18 01/18/21 [place] [address] [place] [address] Assigned PCP 01/19/21 03/10/21 Nikki Pierre RN Personal Advocate & Liaison (PAL) Family Medicine 03/06/21 03/25/22 [place] [address] [place] [address] Assigned PCP 03/11/21 01/18/22 Amanda Ibrahim MD [address] [facility] [address] [place] [address] Assigned Heart and Vascular Provider 04/22/21 05/26/21 Laureen Dye APRN [employer] [facility] [address] [place] [address] Assigned Heart and Vascular Provider 05/27/21 01/17/23 Franny Shrestha PA-C [address] [place] [address] Physician Coal Grader Urology 10/01/21 Franny Shrestha PA-C [address] [place] [address] Assigned Surgical Provider 12/29/21 11/22/22 [place] [address] [place] [address] Assigned PCP 01/19/22 03/08/22 [place] [address] [place] [address] Assigned PCP 03/09/22 03/22/22 [place] [address] [place] [address] Assigned PCP 03/23/22 06/21/22 [place] [address] [place] [address] Family Medicine 08/27/22 [place] [address] [place] [address] Assigned PCP 08/31/22 10/27/23 Aimee Mascorro MD [facility] [address] [place] [address] Assigned Surgical Provider 11/23/22 12/20/22 Franny Shrestha PA-C [address] [place] [address] Assigned Surgical Provider 12/21/22 Amanda Ibrahim MD [address] [facility] [address] [place] [address] Assigned Heart and Vascular Provider 01/18/23 [facility] [address] [place] [address] Assigned PCP 10/28/23 documented as of this encounter
--- OUTSIDE RECORDS SUMMARY | 2024-01-23 01:17 | XMS_ITS | Encounter Summary ---
Author Organization [place] Address [address] [place] [address] Care Team Providers Care Provider Contracting Consultant Name Role Phone No Ref-Primary, Physician Primary Care Provider Bryon Bell MD Unavailable [phone] Anyi Broderick MD Unavailable Nikki Pierre RN Unavailable Unavailable Bryon Bell MD Primary Care Provider + [phone] Bryon Bell MD Unavailable [phone] Amanda Ibrahim MD Unavailable [phone] Laureen Dye APRN [facility] Unavailable [phone] Franny Shrestha-C Unavailable [phone] Franny Shrestha-C Unavailable [phone] Anyi Broderick MD Unavailable Bryon Bell MD Unavailable [phone] Anyi Broderick MD Unavailable Vitaliy Solo MD Primary Care Provider Bryon Bell MD Unavailable [phone] Anyi Broderick MD Unavailable Aimee Mascorro MD Unavailable [phone] Franny Shrestha-C Unavailable [phone] Amanda Ibrahim MD Unavailable [phone] [facility] Unavailabl e Reason for Visit * Reason Onset Date Comments MyChart Communication 03/09/2020 Encounter Details Date Type Department Care Team (Late st Contact Info) Description 03/09/2020 MyC Medical Advice [facility] [address] [place] [phone] [place] [address] [place] [address] MyChart Communication Social History Tobacco Use Types [...] on filedocumented in this encounter Care Teams Provider Contracting Consultant Relationship Specialty Start Date End Date No Ref-Primary, Physician PCP - General 08/14/18 03/05/21 Bryon Bell MD PCP - General Family Medicine 03/06/21 05/05/22 Vitaliy Solo MD [facility] [address] [place] [address] PCP - General Emergency Medicine 07/19/22 [place] [address] [place] [address] Assigned PCP 07/30/18 01/18/21 [place] [address] [place] [address] Assigned PCP 01/19/21 03/10/21 Nikki Pierre, RN Personal Advocate & Liaison (PAL) Family Medicine 03/06/21 03/25/22 [place] [address] [place] [address] Assigned PCP 03/11/21 01/18/22 Amanda Ibrahim MD [address] [place] [address] Assigned Heart and Vascular Provider 04/22/21 05/26/21 Laureen Dye, GUS TOWER TRUCK DRIVER [address] [place] [address] Assigned Heart and Vascular Provider 05/27/21 01/17/23 Franny Shrestha PA-C [address] [place] [address] Physician Fuel Tank Sealer And Tester Urology 10/01/21 Franny Shrestha PA-C [address] [place] [address] Assigned Surgical Provider 12/29/21 11/22/22 [place] [address] [place] [address] Assigned PCP 01/19/22 03/08/22 [place] [address] [place] [address] Assigned PCP 03/09/22 03/22/22 [place] [address] [place] [address] Assigned PCP 03/23/22 06/21/22 [place] [address] [place] [address] Family Medicine 08/27/22 [place] [address] [place] [address] Assigned PCP 08/31/22 10/27/23 Aimee Mascorro MD [facility] [address] [place] [address] Assigned Surgical Provider 11/23/22 12/20/22 Franny Shrestha PA-C [address] [place] [address] Assigned Surgical Provider 12/21/22 Amanda Ibrahim MD [address] [facility] [address] [place] [address] Assigned Heart and Vascular Provider 01/18/23 [facility] [address] [place] [address] Assigned PCP 10/28/23 documented as of this encounter
--- OUTSIDE RECORDS SUMMARY | 2024-01-23 01:17 | XMS_ITS | Encounter Summary ---
Author Organization [place] Address [address] [place] [address] Care Team Providers Care Sewage Screen Operator Name Role Phone No Ref-Primary, Physician Primary Care Provider Bryon Bell MD Unavailable [phone] Bryon Bell MD Unavailable [phone] Anyi Brdoerick MD Unavailable Nikki Pierre RN Unavailable Unavailable Bryon Bell MD Primary Care Provider [phone] Bryon Bell MD Unavailable Amanda Ibrahim MD Unavailable [phone] Laureen Dye APRN BINDER STRIPPER HAND Unavailable [phone] Franny Shrestha-C Unavailable Franny Shrestha PA-C Unavailable [phone] Anyi Broderick MD Unavailable Bryon Bell MD Unavailable Anyi Broderick MD Unavailable Vitaliy Solo MD Primary Care Provider Bryon Bell MD Unavailable Anyi Broderick MD Unavailable Aimee Mascorro MD Unavailable [phone] Franny Shrestha PA-C Unavailable Amanda Ibrahim MD Unavailable [facility] Unavailabl e Encounter Details Date Type Department Care Team (Late st Contact Info) Description 08/21/2018 MyC Medical Advice [facility] [address] [place] [phone] [place] [address] [place] [address] Social History Tobacco Use Types Packs/Day Years [...] on filedocumented in this encounter Care Teams Sewage Screen Operator Relationship Specialty Start Date End Date No Ref-Primary, Physician PCP - General 08/14/18 03/05/21 [place] [address] [place] [address] PCP - Assigned PCP 07/30/18 09/08/18 Bryon Bell MD PCP - General Family Medicine 03/06/21 05/05/22 Vitaliy Solo MD [facility] [address] [place] [address] PCP - General Emergency Medicine 07/19/22 [place] [address] [address] [address] Assigned PCP 07/30/18 01/18/21 [place] [address] [place] [address] Assigned PCP 01/19/21 03/10/21 Nikki Pierre RN Personal Advocate & Liaison (PAL) Family Medicine 03/06/21 03/25/22 [place] [address] [place] [address] Assigned PCP 03/11/21 01/18/22 Amanda Ibrahim MD [address] [place] [address] Assigned Heart and Vascular Provider 04/22/21 05/26/21 Laureen Dye APRN BINDER STRIPPER HAND [address] [place] [address] Assigned Heart and Vascular Provider 05/27/21 01/17/23 Franny Shrestha PA-C [address] [place] [address] Physician Dielectric Press Operator Urology 10/01/21 Franny Shrestha PA-C [address] [place] [address] Assigned Surgical Provider 12/29/21 11/22/22 [place] [address] [place] [address] Assigned PCP 01/19/22 03/08/22 [place] [address] [place] [address] Assigned PCP 03/09/22 03/22/22 [place] [address] [place] [address] Assigned PCP 03/23/22 06/21/22 [place] [address] [place] [address] Family Medicine 08/27/22 [place] [address] [place] [address] Assigned PCP 08/31/22 10/27/23 Aimee Mascorro MD [facility] [address] [place] [address] Assigned Surgical Provider 11/23/22 12/20/22 Franny Shrestha PA-C [address] [place] [address] Assigned Surgical Provider 12/21/22 Amanda Ibrahim MD [address] [facility] [address] [place] [address] Assigned Heart and Vascular Provider 01/18/23 [facility] [address] [place] [address] Assigned PCP 10/28/23 documented as of this encounter
--- OUTSIDE RECORDS SUMMARY | 2024-01-23 01:17 | XMS_ITS | Encounter Summary ---
Author Organization [place] Address [address] [place] [address] Care Team Providers Care Boat Tester Name Role Phone No Ref-Primary, Physician Primary Care Provider Bryon Bell MD Unavailable [phone] Bryon Bell MD Unavailable [phone] Anyi Broderick MD Unavailable Nikki Pierre RN Unavailable Unavailable Bryon Bell MD Primary Care Provider [phone] Bryon Bell MD Unavailable Amanda Ibrahim MD Unavailable [phone] Laureen Dye APRN MAINTENANCE CARPENTER Unavailable [phone] Franny Shrestha-C Unavailable [phone] Franny Shrestha PA-C Unavailable [phone] Anyi Broderick MD Unavailable Bryon Bell MD Unavailable Anyi Broderick MD Unavailable Vitaliy Solo MD Primary Care Provider Bryon Bell MD Unavailable Anyi Broderick MD Unavailable Aimee Mascorro MD Unavailable [phone] Franny Shrestha PA-C Unavailable Amanda Ibrahim MD Unavailable [facility] Unavailabl e Encounter Details Date Type Department Care Team (Late st Contact Info) Description 08/28/2018 MyC Medical Advice [facility] [address] [place] [phone] [place] [address] [place] [address] Social History Tobacco Use Types Packs/Day Years [...] on filedocumented in this encounter Care Teams Boat Tester Relationship Specialty Start Date End Date No Ref-Primary, Physician PCP - General 08/14/18 03/05/21 [place] [address] [place] [address] PCP - Assigned PCP 07/30/18 09/08/18 Bryon Bell MD PCP - General Family Medicine 03/06/21 05/05/22 Vitaliy Solo MD [facility] [address] [place] [address] PCP - General Emergency Medicine 07/19/22 [place] [address] [address] [address] Assigned PCP 07/30/18 01/18/21 [place] [address] [place] [address] Assigned PCP 01/19/21 03/10/21 Nikki Pierre RN Personal Advocate & Liaison (PAL) Family Medicine 03/06/21 03/25/22 [place] [address] [place] [address] Assigned PCP 03/11/21 01/18/22 Amanda Ibrahim MD [address] [place] [address] Assigned Heart and Vascular Provider 04/22/21 05/26/21 Laureen Dye APRN MAINTENANCE CARPENTER [address] [place] [address] Assigned Heart and Vascular Provider 05/27/21 01/17/23 Franny Shrestha PA-C [address] [place] [address] Physician Track Supervisor Urology 10/01/21 Franny Shrestha PA-C [address] [place] [address] Assigned Surgical Provider 12/29/21 11/22/22 [place] [address] [place] [address] Assigned PCP 01/19/22 03/08/22 [place] [address] [place] [address] Assigned PCP 03/09/22 03/22/22 [place] [address] [place] [address] Assigned PCP 03/23/22 06/21/22 [place] [address] [place] [address] Family Medicine 08/27/22 [place] [address] [place] [address] Assigned PCP 08/31/22 10/27/23 Aimee Mascorro MD [facility] [address] [place] [address] Assigned Surgical Provider 11/23/22 12/20/22 Franny Shrestha PA-C [address] [place] [address] Assigned Surgical Provider 12/21/22 Amanda Ibrahim MD [address] [facility] [address] [place] [address] Assigned Heart and Vascular Provider 01/18/23 [facility] [address] [place] [address] Assigned PCP 10/28/23 documented as of this encounter
--- OUTSIDE RECORDS SUMMARY | 2024-01-23 01:17 | XMS_ITS | Clinical Summary ---
Author Organization [employer] Address [place], [place] [address] Care Team Providers Care Technical Marketing Consultant Name Role Phone Vitaliy Solo MD Primary Care Provider [phone] Allergies No known active allergies Medications Medication Sig Dispensed Refills Start Date End Date Status VITAMIN A/VITAMIN D3 (NATURAL VITAMIN D ORAL) Take by mouth. Active clotrimazole-betameth asone cream (LOTRISONE) 1-0.05 % cream Apply small amount to affected area(s) 2 times daily 45 g 1 03/16/2013 Active amiodarone (CORDARONE) 200 mg tablet Take 200 mg by mouth once daily. Active apixaban (Eliquis) 5 mg tabletIndications:Per sistent atrial fibrillation (HC) TAKE 1 TABLET (5 MG) BY MOUTH 2 TIMES DAILY 180 Tablet 3 08/21/2023 Active lisinopriL (PRINIVIL; ZESTRIL) 40 mg tabletIndications:Hyp ertension Take 1 Tablet (40 mg) by mouth once daily. 90 Tablet 3 11/24/2023 Active spironolactone (ALDACTONE) 25 mg tabletIndications:Hyp ertension Take 1 Tablet (25 mg) by mouth once daily. 90 Tablet 3 11/24/2023 Active metoprolol succinate (TOPROL XL) 25 mg Sustained-Release tabletIndications:Hyp ertension Take 1 Tablet (25 mg) by mouth once daily. 90 Tablet 3 11/24/2023 Active Active Problems Problem Noted Date Diagnosed Date Chest pain 01/23/2013 Encounters Date Type Department Care Team Description 12/08/2023 Orders Only [facility] Scanner 1 scan: (1-Ord) INCOMING RECORDS-MRI, [facility], 12/08/2023 12/08/2023 Orders Only [facility] Scanner 1 scan: (1-Ord) INCOMING RECORDS-US, [facility], 12/08/2023 12/08/2023 Orders Only [facility] Scanner 1 scan: (1-Ord) INCOMING RECORDS-EKG, [facility], 12/08/2023 12/08/2023 Orders Only [facility] Scanner 1 scan: (1-Ord) INCOMING RECORDS-CT, [facility], 12/08/2023 12/08/2023 Orders Only [facility] Scanner 1 scan: (1-Ord) INCOMING RECORDS-US, [facility], 12/08/2023 12/08/2023 Orders Only [facility] Scanner 1 scan: (1-Ord) INCOMING RECORDS-EKG, [facility], 12/08/2023 12/08/2023 Orders Only [facility] Scanner 1 scan: (1-Ord) INCOMING RECORDS-CT, [facility], 12/08/2023 12/08/2023 Orders Only [facility] Scanner 1 scan: (1-Ord) INCOMING RECORDS-MRI, [facility], 12/08/2023 11/24/2023 Refill [facility] & [address] [address] Kirit Light MD Refill Request (Lisinopril) 11/21/2023 Orders Only [facility] Scanner 1 scan: (1-Ord) LIYA WALLACE BRAIN WWO CONTRAST, 11/21/2023 11/21/2023 Orders Only [facility] Scanner 1 scan: (1-Ord) [place], MRA NECK WWO CONTRAST, 11/21/2023 from Last 3 Months Social History Tobacco [...] 01/22/2013 11:05 PM CDT Plan of Treatment Upcoming Encounters Date Type Department Care Team (Latest Contact Info) Description 02/13/2024 10:00 AM CDT Office Visit [facility] [address] [facility] [address] [place] [address] Andrew Mcginnis MD [address] [facility] [address] [place] [address] 04/29/2024 12:10 PM CDT Hospital Encounter [facility] [address] [place] [address] Alexy Taylor MD [address] [facility] [address] [place] [address] 04/29/2024 12:10 PM CDT - 04/29/2024 5:[address] 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 04/29/2024 12:10 PM CDT Health Maintenance Due Date Last Done Comments Tdap 1955 Depression screening for age 12+ 1956 BMI (ht and wt on same day) for age 18+ 1962 Hepatitis C screening for age 18-79 1962 Tetanus booster 1964 Zoster (shingles) series for age 50+ (1 of 2) 1994 Pneumococcal series for age 65+ (1 of 1 - PCV) 2009 COVID-19 vaccine series (3 - season) 2023 02/19/2021, 01/22/2021 Influenza for age 65+ 03/07/2024 Procedures Procedure Name Priority Date/Time Associated Diagnosis Comments SCAN CORRESP-EKG RESULTS 12/08/2023 12:00 AM CDT SCAN CORRESP-EKG RESULTS 12/08/2023 12:00 AM CDT SCAN CORRESP-IMAGING 12/08/2023 12:00 AM CDT SCAN CORRESP-IMAGING 12/08/2023 12:00 AM CDT SCAN CORRESP-IMAGING 12/08/2023 12:00 AM CDT SCAN CORRESP-IMAGING 12/08/2023 12:00 AM CDT SCAN CORRESP-IMAGING 12/08/2023 12:00 AM CDT SCAN CORRESP-IMAGING 12/08/2023 12:00 AM CDT SCAN-MRI INTERPRETATION 11/21/19 12:00 AM CDT SCAN-ANGIOGRAM 11/21/2023 12:00 AM CDT from Last 3 Months Results * SCAN CORRESP-EKG RESULTS (12/08/2023 12:00 AM CDT) Only the most recent of2 resultswithin the time period is included. Scanner OTHER * SCAN CORRESP-IMAGING (12/08/2023 12:00 AM CDT) Only the most recent of6 resultswithin the time period is included. Anatomical Region Laterality Modality Other Scanner OTHER * SCAN-ANGIOGRAM (11/21/2023 12:00 AM CDT) Anatomical Region Laterality Modality Other Scanner OTHER * SCAN-MRI INTERPRETATION (11/21/2023 12:00 AM CDT) Anatomical Region Laterality Modality Other Scanner OTHER from Last 3 Months Advance Directives * Full Code (Latest Code Status on File) Date Activated Date Inactivated Comments 01/23/2013 1:38 AM 01/23/2013 4:48 PM Care Teams Technical Marketing Consultant Relationship Specialty Start Date End Date Vitaliy Solo MD [address] [place] [address] PCP - General Internal Medicine 11/10/23
== END 2024-01-20 09:16 | disposition home or self-care (01) ==
LOC: NFLDREF 01-23 01:13
PROVIDERS: PCP Internal Medicine; Referring Provider Internal Medicine; Visit Provider Internal Medicine
DX: Z00.00 Encounter for general adult medical examination without abnormal findings (principal); I42.9 Cardiomyopathy, unspecified; R73.03 Prediabetes; I10 Essential (primary) hypertension; N40.0 Benign prostatic hyperplasia without lower urinary tract symptoms
CPT/HCPCS: 80053; 80061; G0103

== ENCOUNTER 2024-04-08 16:25 | Outpatient (CLI) | payer MEDICARE, BC, SELFPAY ==
--- OUTSIDE RECORDS SUMMARY | 2024-04-08 16:28 | XMS_ITS | Continuity of Care Document ---
Author Name [facility] Organization [facility] Care Team Providers Care Evp Marketing Name Role Phone [facility] Unavailable Unavailable Problems Combined list of problems from Department of Defense and [facility] facilities. It does not include entries that were removed or entered in error. Problem Status Onset Date Problem Type Date of Resolution Comments Source Hearing loss Active Condition Oct 30, 2018 Entered By: ANNIE SOTOMAYOR Comment: Right ear [facility] Raised prostate specific antigen Active Condition [facility] Tinea cruris Active Condition [facility] Diagnosis: ICD-10-CM Z01.118 Encntr for exam of ears and hearing w oth abnormal findings Active Diagnosis [facility] Encounters Combined list of: 1) Encounters from Department of Veterans Affairs facilities going back up to thelast 18 months. 2) Encounters from the Department of [facility] facilities going back up to 280 months. Location Location Details Encounter Type Encounter Number Reason For Visit Attending Provider ADM Date DC Date Status Disposition Source [place] [facility] Outpatient Encounter [id number] 10/08 [facility] [place] [facility] Outpatient Encounter [id number] 03/13 [facility] [place] [facility] Outpatient Encounter [id number] 04/16 [facility] [place] [facility] Outpatient Encounter [id number] 04/17 [facility] [place] [facility] Outpatient Encounter [id number] 04/18 [facility] [place] [facility] Outpatient Encounter [id number] 05/01 [facility] [place] [facility] Outpatient Encounter [id number] 05/01 [facility] [place] [facility] Outpatient Encounter [id number] 05/12 [facility] [place] [facility] Outpatient Encounter [id number] 05/12 [facility] [place] [facility] Outpatient Encounter [id number] 10/07 [facility] [place] [facility] Out[facility] Encounter [id number] 10/07 [facility] [place] [facility] Outpatient Encounter [id number] 01/05 [place] [place] [facility] OFF/OP EST NOVEMBER X REQ PHY/QHP [id number] Diagnos is: ICD-10- CM Z01.118 Encntr for exam of ears and hearing w oth abnorma l finding s
CRYSTAL MURRAY AEL F 01/29 [facility] Social History Combined list of available smoking, tobacco, and other social history from Department of Defense and Veterans Affairs facilities. Social History Type Response Date Comment Sourc e Tobacco smoking status [facility] [place] NEVER USED 10/21/[address] [facility]
--- OUTSIDE RECORDS SUMMARY | 2024-04-08 16:28 | XMS_ITS | Continuity of Care Document ---
Author Organization [facility] Address [address] [place] [address] Phone Care Team Providers Care Acid Regenerator Name Role Phone Claudia WHEATLEY, PhD, Alexy [...] on Encounter [facility], [address], [facility] [place], [id number], [place] tel:[phone] [facility] No Information Claudia Tracey. [facility], [address], [facility] [place], [address], [place]. tel: [phone] Office/Outpat ient Visit,Est, Mod [facility], [address], [place], [place], [id number], [place] tel:[phone] [facility] Spinal stenosis, lumbar region with neurogenic claudication Claudia Tracey. [facility] [place], [address], [place], [address], [place]. tel:[phone] Referring Provider: [facility] [address] [place], [address]. tel:[phone] Office/Outpat ient Visit,New, Mod [facility], [address], [place], [place], [id number], [place] tel:[phone] [facility] Spinal stenosis, lumbar region with neurogenic claudication Claudia Tracey. [facility], [address], [place], [address], [place]. tel:[phone] Referring Provider: [facility] [address] [place], [address]. tel:[phone] Family History Family Member Type Diagnosis Age At Onset Mother Problem (finding) Stroke Sister Problem (finding) Cancer, unknown type Father Problem (finding) Cardiovascular disease Sister Problem (finding) Stroke Payers Payer name Insurance type Covered alliance [place] [id number] Medicare [facility] BL [id number] 1 Social History Type Description Quantity Date [...]
--- OUTSIDE RECORDS SUMMARY | 2024-04-08 16:28 | XMS_ITS | Clinical Summary ---
Author Organization [facility] Address [address] [place] [address] Care Team Providers Care Grounds Worker Name Role Phone Franny Shrestha PA-C Unavailable [phone] Vitaliy Solo MD Primary Care Provider Bryon Bell MD Unavailable [phone] Franny Shrestha PA-C Unavailable [phone] [facility] Unavailabl e Allergies No known active allergies [...] (OCEAN) 0.65 % nasal sprayIndications:Sumeet al obstruction Warren 2 sprays in nostril 4 times daily [...] Administration Dates Next Due Influenza (High Dose) Trival ent,PF (Fluzone) 05/16/2016,06/06/2015,2014,2012,04/27/2012,05/02/2011 Influenza (intradermal) 05/12/2017,04/05/2010, Pneumo Conj 13-V [...] 36 ??C (96.8 ??F) 09/06/2021 10:26 AM SIX SIGMA PROJECT MANAGER Respiratory Rate 14 09/06/2021 10:26 AM SIX SIGMA PROJECT MANAGER Oxygen Saturation 98% 07/19/2022 2:28 PM SIX SIGMA PROJECT MANAGER Inhaled Oxygen Concentration - - Weight 88.9 kg (196 lb) 11/19/2022 2:07 PM CDT Height 182.9 cm (6') 11/19/2022 2:07 PM CDT Body Mass Index 26.58 11/19/2022 2:07 PM CDT Plan of Treatment Health Maintenance Due Date Last Done Comments ANNUAL REVIEW OF HM ORDERS 1944 HF ACTION PLAN 1944 ZOSTER IMMUNIZATION (2 of 3) 06/22/2012 04/27/2012 RSV VACCINE (1 - 1-dose 75+ series) 2019 LIPID 02/27/2021 02/28/2020, 08/07, 08/28/2017, Additional history exists CBC 03/06/2022 03/06/2021 FALL RISK ASSESSMENT 03/06/2022 03/06/2021, 02/28/2020, 08/21/2018 MEDICARE ANNUAL WELLNESS VISIT 03/06/2022 03/06/2021, 02/28/2020, 08/21/2018 BMP 01/29/2023 08/01/2022, 08/08, 05/10/2021, Additional history exists PHQ-2 (once per calendar year) 2023 12/24/2021, 09/06/2021, 08/29/2021, Additional history exists ALT 07/19/2023 07/19/2022, 09/04, 03/06/2021, Additional history exists COVID-19 Vaccine ( season) 2024 02/19/2021, 01/22/2021 INFLUENZA VACCINE (#1) 2024 7, 05/16/2016, 06/06/2015, Additional history exists GLUCOSE 08/01/2025 08/01/2022, 2 09/2021, 05/10/2021, Additional history exists ADVANCE CARE PLANNING [...] BASIC METABOLIC PANEL Routine 08/01/2022 11:08 AM SIX SIGMA PROJECT MANAGER Atrial fibrillation, unspecified type (H) TSH WITH FREE T4 REFLEX Routine 07/19/2022 1:01 PM SIX SIGMA PROJECT MANAGER Atrial fibrillation (H) HEPATIC FUNCTION PANEL Routine 07/19/2022 1:01 PM SIX SIGMA PROJECT MANAGER Atrial fibrillation (H) CBC WITH PLATELETS Routine [...] (ABNORMAL) Basic metabolic panel (08/01/2022 11:08 AM SIX SIGMA PROJECT MANAGER) Sodium 140 136 - 145 mmol/L 08/01/2022 11:43 AM [facility] Potassium 4.2 3.4 - 5.3 mmol/L 08/01/2022 11:43 AM [facility] Chloride 103 98 - 107 mmol/L 08/01/2022 11:43 AM [facility] Carbon Dioxide (CO2) 31(H) 22 - 29 mmol/L 08/01/2022 11:43 AM [facility] Anion Gap 6(L) 7 - 15 mmol/L 08/01/2022 11:43 AM [facility] Urea Nitrogen 20.9 8.0 - 23.0 mg/dL 08/01/2022 11:43 AM [facility] Creatinine 0.92 0.67 - 1.17 mg/dL 08/01/2022 11:43 AM [facility] Calcium 8.9 8.8 - 10.2 mg/dL 08/01/2022 11:43 AM [facility] Glucose 187(H) 70 - 99 mg/dL 08/01/2022 11:43 AM [facility] GFR Estimate 85 >60 mL/min/1.7 3m2 08/01/2022 11:43 AM [facility] Comment:eGFR calculated usin 2020 CKD-EPI equation. Blood STRUCTURE OF LEFT UPPER LIMB / Unknown Venipuncture / Unknown 08/01/2022 11:08 AM SIX SIGMA PROJECT MANAGER 08/01/2022 11:13 AM [facility] Amanda Ibrahim MD LAB - BLOOD ORDERAB LES LABORATORY [facility] [address] Lab (1st floor, no room number) [place] [address], [facility] [phone] * TSH with free T4 reflex (07/19/2022 1:01 PM SIX SIGMA PROJECT MANAGER) TSH 1.91 0.30 - 4.20 uIU/mL 07/19/2022 1:44 PM SIX SIGMA PROJECT MANAGER LABORATORY Blood STRUCTURE OF LEFT UPPER LIMB / Unknown Venipuncture / Unknown 07/19/2022 1:01 PM SIX SIGMA PROJECT MANAGER 07/19/2022 1:01 PM SIX SIGMA PROJECT MANAGER Amanda Ibrahim MD LAB - BLOOD ORDERAB LES Performing Organization Address City/[facility]/ZIP Co de Phone Number [facility] Lab [address] Lab (1st floor, no room number) [place] [address], [facility] [phone] * Hepatic panel (07/19/2022 1:01 PM SIX SIGMA PROJECT MANAGER) Protein Total 6.8 6.4 - 8.3 g/dL 07/19/2022 1:31 PM SIX SIGMA PROJECT MANAGER LABORATORY Albumin 4.1 3.5 - 5.2 g/dL 07/19/2022 1:31 PM SIX SIGMA PROJECT MANAGER LABORATORY Bilirubin Total 0.3 <=1.2 mg/dL 07/19/2022 1:31 PM SIX SIGMA PROJECT MANAGER LABORATORY Alkaline Phosphatase 78 40 - 129 U/L 07/19/2022 1:31 PM SIX SIGMA PROJECT MANAGER LABORATORY AST 17 10 - 50 U/L 07/19/2022 1:31 PM SIX SIGMA PROJECT MANAGER LABORATORY ALT 19 10 - 50 U/L 07/19/2022 1:31 PM SIX SIGMA PROJECT MANAGER LABORATORY Bilirubin Direct <0.20 0.00 - 0.30 mg/dL 07/19/2022 1:31 PM SIX SIGMA PROJECT MANAGER LABORATORY Blood STRUCTURE OF LEFT UPPER LIMB / Unknown Venipuncture / Unknown 07/19/2022 1:01 PM SIX SIGMA PROJECT MANAGER 07/19/2022 1:01 PM SIX SIGMA PROJECT MANAGER Amanda Ibrahim MD LAB - BLOOD ORDERAB LES Performing Organization Address City/[facility]/ZIP Co de Phone Number [facility] [address] Lab (1st floor, no room number) [place] [address], [facility] [phone] * Hepatitis C antibody (03/06/2021 10:17 AM CDT) Hepatitis C Antibody Nonreactive Nonreactive 03/07/2021 11:24 AM CDT [facility] Blood STRUCTURE OF RIGHT UPPER LIMB / Unknown Venipuncture / Unknown 03/06/2021 10:17 AM CDT 03/06/2021 10:17 AM CDT Narrative [facility] - 03/07/2021 11:24 AM CDT Assay performance characteristics have not been established for newborns, infants, and children. Bryon Bell MD LAB - BLOOD ORDERABL ES [facility] Special[facility] Core Lab [address] [facility], [address] [place] [address], [facility] [phone] * CBC with platelets (03/06/2021 10:17 AM CDT) WBC Count 6.2 4.0 - 11.0 10e3/uL [...] Bell MD LAB - BLOOD ORDERABL ES Performing Organization Address [facility]/ZIP Co de Phone Number LABORATORY [facility] [address] [facility] Lab (no room number, 1st floor of clinic) [place] [address], [facility] [phone] * (ABNORMAL) Lipid panel reflex to direct LDL Fasting (02/28/2020 11:36 AM CDT) Cholesterol 188 <200 mg/dL 02/29/2020 8:55 AM CDT [facility] Triglycerides 67 <150 mg/dL 02/29/2020 8:57 AM CDT [facility] Comment:Fasting specimen HDL Cholesterol 69 >39 mg/dL 0 8:55 AM CDT [facility] LDL Cholesterol Calculated 106(H) <100 mg/dL 02/29/2020 8:57 AM CDT [facility] Comment: Above desirable: ??100-129 mg/dl Borderline High: ??130-159 mg/dL High: ? 160-189 mg/dL Very high: ? >189 mg/dl Non HDL Cholesterol 119 <130 mg/dL 02/29/2020 8:55 AM CDT [facility] Blood specimen (specimen) 02/28/2020 11:36 AM CDT 02/28/2020 11:37 AM CDT Bryon Bell MD LAB - BLOOD ORDERABL ES [facility] [address] [place] [address] * COLONOSCOPY - HIM SCAN (03/10/2014 12:00 AM CDT) 03/10/2014 Provider Outside PROCEDURES from Last 3 Months or Most Recently Relevant to Health Maintenance Care Teams Grounds Worker Relationship Specialty Start Date End Date Vitaliy Solo MD [facility] [address] [place] [address] PCP - General Emergency Medicine 07/19/22 Franny Shrestha PA-C [address] [place] [address] Physician Sugar Controller Urology 10/01/21 [place] [address] [place] [address] Family Medicine 08/27/22 Franny Shrestha PA-C [address] [place] [address] Assigned Surgical Provider 12/21/22 [facility] [address] [place] [address] Assigned PCP 10/28/23
--- OUTSIDE RECORDS SUMMARY | 2024-04-08 16:29 | XMS_ITS | Encounter Summary ---
Author Organization [facility] Address [address] [place] [address] Care Team Providers Care Auto Service Station Attendant Name Role Phone Page, Nikki Vega RN Unavailable Unavailable Bryon Bell MD Primary Care Provider + [phone] Bryon Bell MD Unavailable [phone] Laureen Dye APRN NUT DEHYDRATOR OPERATOR Unavailable [phone] Franny Shrestha PA-C Unavailable Franny Shrestha PA-C Unavailable Anyi Broderick MD Unavailable Bryon Bell MD Unavailable [phone] Anyi Broderick MD Unavailable Vitaliy Solo MD Primary Care Provider Bryon Bell MD Unavailable [phone] Anyi Broderick MD Unavailable Aimee Mascorro MD Unavailable [phone] Franny Shrestha PA-C Unavailable Amanda Ibrahim MD [facility] Unavailabl e Encounter Details Date Type Department Care Team (Late st Contact Info) Description 09/27/2021 MyC Medical Advice [facility] [address] [place] [address] [place] [address] [place] [address] Social History Tobacco Use Types Packs/Day Years [...] on filedocumented in this encounter Care Teams Auto Service Station Attendant Relationship Specialty Start Date End Date Bryon Bell MD PCP - General Family Medicine 03/06/21 05/05/[address] [facility] [address] [place] [address] PCP - General Emergency Medicine 07/19/22 Nikki Pierre RN Personal Advocate & Liaison (PAL) Family Medicine 03/06/21 03/25/22 [place] [address] [place] [address] Assigned PCP 03/11/21 01/18/22 Laureen Dye, FISH ROD MAKER NUT DEHYDRATOR OPERATOR [address] [place] [address] Assigned Heart and Vascular Provider 05/27/21 01/17/23 Franny Shrestha PA-C [address] [place] [address] Physician Rail Car Unloader Urology 10/01/21 Franny Shrestha PA-C [address] [place] [address] Assigned Surgical Provider 12/29/21 11/22/22 [place] [address] [place] [address] Assigned PCP 01/19/22 03/08/22 [place] [address] [place] [address] Assigned PCP 03/09/22 03/22/22 [place] [address] [place] [address] Assigned PCP 03/23/22 06/21/22 [place] [address] [place] [address] Family Medicine 08/27/22 [place] [address] [place] [address] Assigned PCP 08/31/22 10/27/23 Aimee Mascorro MD [facility]GER [address], [address] [place] [address] Assigned Surgical Provider 11/23/22 12/20/22 Franny Shrestha PA-C [address] [place] [address] Assigned Surgical Provider 12/21/22 Amanda Ibrhaim MD Assigned Heart and Vascular Provider 01/18/23 01/26/24 [facility] [address] [place] [address] Assigned PCP 10/28/23 documented as of this encounter
--- OUTSIDE RECORDS SUMMARY | 2024-04-08 16:29 | XMS_ITS | Encounter Summary ---
Author Organization [facility] Address [address] [place] [address] Care Team Providers Care Accountant Assistant Name Role Phone Page, Nikki Vega RN Unavailable Unavailable Bryon Bell MD Primary Care Provider + [phone] Bryon Bell MD Unavailable [phone] Laureen Dye APRN ASSET RECOVERY SPECIALIST Unavailable [phone] Franny Shrestha PA-C Unavailable [phone] Franny Shrestha PA-C Unavailable Anyi Broderick MD Unavailable Bryon Bell MD Unavailable [phone] Anyi Broderick MD Unavailable Vitaliy Solo MD Primary Care Provider Bryon Bell MD Unavailable [phone] Anyi Broderick MD Unavailable Aimee Mascorro MD Unavailable [phone] Franny Shrestha PA-C Unavailable Amanda Ibrahim MD Unavailable [facility] Unavailabl e Reason for Visit * Reason Onset Date Comments Outreach 10/10/2021 PAL Encounter Details Date Type Department Care Team (Late st Contact Info) Description 10/10/2021 MyC Medical Advice [facility] [address] [place] [phone] [place] [address] [facility] [address] Outreach (PAL) Social History Tobacco Use Types [...] on filedocumented in this encounter Care Teams Accountant Assistant Relationship Specialty Start Date End Date Bryon Bell MD PCP - General Family Medicine 03/06/21 05/05/22 Vitaliy Solo MD [facility] [address] [place] [address] PCP - General Emergency Medicine 07/19/22 Nikki Pierre, RN Personal Advocate & Liaison (PAL) Family Medicine 03/06/21 03/25/22 [place] [address] [place] [address] Assigned PCP 03/11/21 01/18/22 Laureen Dye, DESIGN ASSEMBLER ASSET RECOVERY SPECIALIST [address] [place] [address] Assigned Heart and Vascular Provider 05/27/21 01/17/23 Franny Shrestha PA-C [address] [place] [address] Physician Bradley Linebacker Crewmember Urology 10/01/21 Franny Shrestha PA-C [address] [place] [address] Assigned Surgical Provider 12/29/21 11/22/22 [place] [address] [place] [address] Assigned PCP 01/19/22 03/08/22 [place] [address] [place] [address] Assigned PCP 03/09/22 03/22/22 [place] [address] [place] [address] Assigned PCP 03/23/22 06/21/22 [place] [address] [place] [address] Family Medicine 08/27/22 [place] [address] [place] [address] Assigned PCP 08/31/22 10/27/23 Aimee Mascorro MD [facility] [address], [address] [place] [address] Assigned Surgical Provider 11/23/22 12/20/22 Franny Shrestha PA-C [address] [place] [address] Assigned Surgical Provider 12/21/22 Amanda Ibrahim MD Assigned Heart and Vascular Provider 01/18/23 01/26/24 [facility] [address] [place] [address] Assigned PCP 10/28/23 documented as of this encounter
--- OUTSIDE RECORDS SUMMARY | 2024-04-08 16:29 | XMS_ITS | Referral Summary ---
Author Organization [facility] Address [address] [place] [address] Care Team Providers Care Science Professor Name Role Phone Franny Shrestha PA-C Unavailable [phone] Vitaliy Solo MD Primary Care Provider Bryon Bell MD Unavailable [phone] Franny Shrestha PA-C Unavailable [facility] Unavailabl e Allergies No known active [...] (OCEAN) 0.65 % nasal sprayIndications:Sumeet al obstruction Vergas 2 sprays in nostril 4 times daily [...] 36 ??C (96.8 ??F) 09/06/2021 10:26 AM PEGA DEVELOPER Respiratory Rate 14 09/06/2021 10:26 AM PEGA DEVELOPER Oxygen Saturation 98% 07/19/2022 2:28 PM PEGA DEVELOPER Inhaled Oxygen Concentration - - Weight 88.9 kg (196 lb) 11/19/2022 2:07 PM CDT Height 182.9 cm (6') 11/19/2022 2:07 PM CDT Body Mass Index 26.58 11/19/2022 2:07 PM CDT Plan of Treatment Not on file Procedures Procedure Name Priority Date/Time Associated Diagnosis Comments BASIC METABOLIC PANEL Routine 08/01/2022 11:08 AM PEGA DEVELOPER Atrial fibrillation, unspecified type (H) TSH WITH FREE T4 REFLEX Routine 07/19/2022 1:01 PM PEGA DEVELOPER Atrial fibrillation (H) HEPATIC FUNCTION PANEL Routine 07/19/2022 1:01 PM PEGA DEVELOPER Atrial fibrillation (H) CBC WITH PLATELETS Routine [...] (ABNORMAL) Basic metabolic panel (08/01/2022 11:08 AM PEGA DEVELOPER) Sodium 140 136 - 145 mmol/L 08/01/2022 11:43 AM PEGA DEVELOPER [facility] Potassium 4.2 3.4 - 5.3 mmol/L 08/01/2022 11:43 AM PEGA DEVELOPER [facility] Chloride 103 98 - 107 mmol/L 08/01/2022 11:43 AM PE[facility] DEVEL[facility] Carbon Dioxide (CO2) 31(H) 22 - 29 mmol/L 08/01/2022 11:43 AM [facility] Anion Gap 6(L) 7 - 15 mmol/L 08/01/2022 11:43 AM [facility] Urea Nitrogen 20.9 8.0 - 23.0 mg/dL 08/01/2022 11:43 AM [facility] Creatinine 0.92 0.67 - 1.17 mg/dL 08/01/2022 11:43 AM [facility] Calcium 8.9 8.8 - 10.2 mg/dL 08/01/2022 11:43 AM [facility] Glucose 187(H) 70 - 99 mg/dL 08/01/2022 11:43 AM [facility] GFR Estimate 85 >60 mL/min/1.7 3m2 08/01/2022 11:43 AM [facility] Comment:eGFR calculated usin g 2020 CKD-EPI equation. Blood STRUCTURE OF LEFT UPPER LIMB / Unknown Venipuncture / Unknown 08/01/2022 11:08 AM PEGA DEVELOPER 08/01/2022 11:13 AM PEGA DEVELOPER Amanda Ibrahim MD LAB - BLOOD ORDERAB LES [facility] [address] (1st floor, no room number) [place] [id number], [facility] [phone] * TSH with free T4 reflex (07/19/2022 1:01 PM PEGA DEVELOPER) TSH 1.91 0.30 - 4.20 uIU/mL 07/19/2022 1:44 PM [facility] Blood STRUCTURE OF LEFT UPPER LIMB / Unknown Venipuncture / Unknown 07/19/2022 1:01 PM PEGA DEVELOPER 07/19/2022 1:01 PM PEGA DEVELOPER Amanda Ibrahim MD LAB - BLOOD ORDERAB LES [facility] Acute Care Lab [address] Lab (1st floor, no room number) [place] [address], [facility] [phone] * Hepatic panel (07/19/2022 1:01 PM PEGA DEVELOPER) Pathologist [facility] Protein Total 6.8 6.4 - 8.3 g/dL 07/19/2022 1:31 PM [facility] Albumin 4.1 3.5 - 5.2 g/dL 07/19/2022 1:31 PM [facility] Bilirubin Total 0.3 <=1.2 mg/dL 07/19/2022 1:31 PM [facility]EL[facility] Alkaline Phosphatase 78 40 - 129 U/L 07/19/2022 1:31 PM [facility] DEVEL[facility] AST 17 10 - 50 U/L 07/19/2022 1:31 PM PEGA DEVELOPER [facility] ALT 19 10 - 50 U/L 07/19/2022 1:31 PM PEGA DEVELOPER [facility] Bilirubin Direct <0.20 0.00 - 0.30 mg/dL 07/19/2022 1:31 PM PE[facility] DEVEL[facility] Blood STRUCTURE OF LEFT UPPER LIMB / Unknown Venipuncture / Unknown 07/19/2022 1:01 PM PEGA DEVELOPER 07/19/2022 1:01 PM PEGA DEVELOPER Amanda Ibrahim MD LAB - BLOOD ORDERAB LES LABORAT[facility] Acute Care Lab [address] [facility] Lab (1st floor, no room number) [place] [address], [facility] [phone] * Hepatitis C antibody (03/06/2021 10:17 AM CDT) Pathologist [facility] Hepatitis C Antibody Nonreactive Nonreactive 03/07/2021 11:24 AM CDT [facility] Blood STRUCTURE OF RIGHT UPPER LIMB / Unknown Venipuncture / Unknown 03/06/2021 10:17 AM CDT 03/06/2021 10:17 AM CDT Narrative [facility] CORE - 03/07/2021 11:24 AM CDT Assay performance characteristics have not been established for newborns, infants, and children. Bryon Bell MD LAB - BLOOD ORDERABL ES [facility] SPECIALTY CORE [facility] Specialty Core Lab [address] [facility], [address] [place] [address], [place] [phone] * CBC with platelets (03/06/2021 10:17 AM [...] LAB - BLOOD ORDERABL ES [facility] [address] [facility] Lab (no room number, 1st floor of clinic) [place] [address], [place] [phone] * (ABNORMAL) Lipid panel reflex to direct LDL Fasting (02/28/2020 11:36 AM CDT) Cholesterol 188 <200 mg/dL 02/29/2020 8:55 AM CDT [facility] Triglycerides 67 <150 mg/dL 02/29/2020 8:57 AM CDT [facility] Comment:Fasting specimen HDL Cholesterol 69 >39 mg/dL 0 8:55 AM CDT [facility] LDL Cholesterol Calculated 106(H) <100 mg/dL 02/29/2020 8:57 AM CDT [facility] Comment: Above desirable: ??100-129 mg/dl Borderline High: ??130-159 mg/dL High: ? 160-189 mg/dL Very high: ? >189 mg/dl Non HDL Cholesterol 119 <130 mg/dL 02/29/2020 8:55 AM CDT [facility] Blood specimen (specimen) 02/28/2020 11:36 AM CDT 02/28/2020 11:37 AM CDT Bryon Bell MD LAB - BLOOD ORDERABL ES [facility] [address] [place] [address] * COLONOSCOPY - HIM SCAN (03/10/2014 12:00 AM CDT) 03/10/2014 Provider Outside PROCEDURES from Last 3 Months or Most Recently Relevant to Health Maintenance Care Teams Science Professor Relationship Specialty Start Date End Date Vitaliy Solo MD [facility] [address] [place] [address] PCP - General Emergency Medicine 07/19/22 Franny Shrestha PA-C [address] [facility] [address] [place] [address] Physician Sash Clamp Operator Urology 10/01/21 [place] [address] [place] [address] Family Medicine 08/27/22 Franny Shrestha PA-C [address] [facility] [address] [place] [address] Assigned Surgical Provider 12/21/22 [facility] [address] [place] [address] Assigned PCP 10/28/23
--- OUTSIDE RECORDS SUMMARY | 2024-04-08 16:29 | XMS_ITS | Encounter Summary ---
Author Organization [facility] Address [address] [place] [address] Care Team Providers Care Chemical Blender Name Role Phone Page, Nikki Vega RN Unavailable Unavailable Bryon Bell MD Primary Care Provider [phone] Bryon Bell MD Unavailable [phone] Laureen Dye APRN ENGINE OILER Unavailable [phone] Franny Shrestha PA-C Unavailable Franny Shrestha PA-C Unavailable Anyi Broderick MD Unavailable Bryon Bell MD Unavailable [phone] Aniy Broderick MD Unavailable Vitaliy Solo MD Primary Care Provider Bryon Bell MD Unavailable [phone] Anyi Broderick MD Unavailable Aimee Mascorro MD Unavailable [phone] Franny Shrestha PA-C Unavailable [phone] Amanda Ibrahim MD Unavailable [facility] Unavailabl e Encounter Details Date Type Department Care Team (Late st Contact Info) Description 09/11/2021 MyC Medical Advice [facility] [address] [place] [address] Nikki Pierre, RN Social History Tobacco Use [...] COVID-19? No / Unsure 09/13/2021 3:04 PM ACTIVITY LEADER documented as of this encounter Plan of Treatment Not on file documented as of this encounter Visit Diagnoses Not on filedocumented in this encounter Care Teams Chemical Blender Relationship Specialty Start Date End Date Bryon Bell MD PCP - General Family Medicine 03/06/21 05/05/22 Vitaliy Solo MD [facility] [address] [place] [address] PCP - General Emergency Medicine 07/19/22 Nikki Pierre RN Personal Advocate & Liaison (PAL) Family Medicine 03/06/21 03/25/22 [place] [address] [place] [address] Assigned PCP 03/11/21 01/18/22 Laureen Dye, PRINTED FORMS PROOFREADER ENGINE OILER [address] [place] [address] Assigned Heart and Vascular Provider 05/27/21 01/17/23 Franny Shrestha PA-C [address] [place] [address] Physician Helicopter Technician Urology 10/01/21 Franny Shrestha PA-C [address] [place] [address] Assigned Surgical Provider 12/29/21 11/22/22 [place] [address] [place] [address] Assigned PCP 01/19/22 03/08/22 [place] [address] [place] [address] Assigned PCP 03/09/22 03/22/22 [place] [address] [place] [address] Assigned PCP 03/23/22 06/21/22 [place] [address] [place] [address] Family Medicine 08/27/22 [place] [address] [place] [address] Assigned PCP 08/31/22 10/27/23 Aimee Mascorro MD [facility] [address], [address] [place] [address] Assigned Surgical Provider 11/23/22 12/20/22 Franny Shrestha PA-C [address] [address] Assigned Surgical Provider 12/21/22 Amanda Ibrahim MD Assigned Heart and Vascular Provider 01/18/23 01/26/24 [facility] [address] [place] [address] Assigned PCP 10/28/23 documented as of this encounter
--- OUTSIDE RECORDS SUMMARY | 2024-04-08 16:29 | XMS_ITS | Encounter Summary ---
Author Organization [facility] Address [address] [place] [address] Care Team Providers Care Sap Bpc Architect Name Role Phone Page, Nikki Vega RN Unavailable Unavailable Bryon Bell MD Primary Care Provider + [phone] Bryon Bell MD Unavailable [phone] Laureen Dye APRN HOISTING LABORER Unavailable [phone] Franny Shrestha PA-C Unavailable [phone] Franny Shrestha PA-C Unavailable [phone] Anyi Broderick MD Unavailable Bryon Bell MD Unavailable [phone] Anyi Broderick MD Unavailable Vitaliy Solo MD Primary Care Provider Bryon Bell MD Unavailable [phone] Anyi Broderick MD Unavailable Aimee Mascorro MD Unavailable [phone] Franny Shrestha PA-C Unavailable Amanda Ibrahim MD [facility] Unavailabl e Reason for Visit * Reason Onset Date Comments Call to schedule test 08/21/2021 orders nee d to be placed Encounter Details Date Type Department Care Team ([facility] st Contact Info) Description 08/21/[address] [facility] Heart [facility] [place] [address] [facility] [address] [place] [phone] Laureen Dye APRN CNP [address] [facility] [address] [place] [address] Call to schedule test (orders need to [...] Chapa - 08/21/2021 3:18 PM CST M [facility] Call Center Phone Message May a detailed message be left on voicemail: yes Reason for Call: Appointment Intake Referring Provider Name: Laureen Dye Diagnosis and/or Symptoms: Secondary cardiomyopathy (H) Benign essential hypertension Action Taken: Message routed to: Other: ru adult cardiology Travel Screening: Not Applicable Please place orders per dictation so pt can schedule appts LLMENT PROCESSOR documented in this encounter Plan of Treatment Not on file documented as of this encounter Visit Diagnoses Not on filedocumented in this encounter Care Teams Sap Bpc Architect Relationship Specialty Start Date End Date Bryon Bell MD PCP - General Family Medicine 03/06/21 05/05/22 Vitaliy Solo MD [facility] [address] [place] [address] PCP - General Emergency Medicine 07/19/22 Nikki Pierre, RN Personal Advocate & Liaison (PAL) Family Medicine 03/06/21 03/25/22 [place] [address] [place] [address] Assigned PCP 03/11/21 01/18/22 Laureen Dye APRN HOISTING LABORER [address] [place] [address] Assigned Heart and Vascular Provider 05/27/21 01/17/23 Franny Shrestha PA-C [address] [place] [address] Physician Emulsification Operator Urology 10/01/21 Franny Shrestha PA-C [address] [place] [address] Assigned Surgical Provider 12/29/21 11/22/22 [place] [address] [place] [address] Assigned PCP 01/19/22 03/08/22 [place] [address] [place] [address] Assigned PCP 03/09/22 03/22/22 [place] [address] [place] [address] Assigned PCP 03/23/22 06/21/22 [place] [address] [place] [address] Family Medicine 08/27/22 [place] [address] [place] [address] Assigned PCP 08/31/22 10/27/23 Aimee Mascorro MD [facility] [address] [place] [address] Assigned Surgical Provider 11/23/22 12/20/22 Franny Shrestha PA-C [address] [place] [address] Assigned Surgical Provider 12/21/22 Amanda Ibrahim MD Assigned Heart and Vascular Provider 01/18/23 01/26/24 [facility] [address] [place] [address] Assigned PCP 10/28/23 documented as of this encounter
--- OUTSIDE RECORDS SUMMARY | 2024-04-08 16:29 | XMS_ITS | Encounter Summary ---
Author Organization [facility] Address [address] [place] [address] Care Team Providers Care Health And Nutrition Specialist Name Role Phone Laureen Dye APRN SNOW FENCE ERECTOR Unavailable [phone] Franny Shrestha PA-C Unavailable Franny Shrestha PA-C Unavailable Vitaliy Solo MD Primary Care Provider Bryon Bell MD Unavailable [phone] Anyi Broderick MD Unavailable Aimee Mascorro MD Unavailable [phone] Franny Shrestha PA-C Unavailable Amanda Ibrahim MD Unavailable Unavailabl e [facility] Unavailabl e Encounter Details Date Type Department Care Team (Late st Contact Info) Description 10/11/2022 MyC Medical Advice [facility] [address] [place] [address] Amanda Ibrahim MD Social History Tobacco Use Types Packs/Day Years [...] on filedocumented in this encounter Care Teams Health And Nutrition Specialist Relationship Specialty Start Date End Date Vitaliy Solo MD [facility] [address] [place] [address] PCP - General Emergency Medicine 07/19/22 Laureen Dye, GUS SNOW FENCE ERECTOR [address] [place] [address] Assigned Heart and Vascular Provider 05/27/21 01/17/23 Franny Shrestha PA-C [address] [place] [address] Physician Night Order Selector Urology 10/01/21 Franny Shrestha PA-C [address] [place] [address] Assigned Surgical Provider 12/29/21 11/22/22 [place] [address] [place] [address] Family Medicine 08/27/22 [place] [address] [place] [address] Assigned PCP 08/31/22 10/27/23 Aimee Mascorro MD [facility] [address], [address] [place] [address] Assigned Surgical Provider 11/23/22 12/20/22 Franny Shrestha PA-C [address] [place] [address] Assigned Surgical Provider 12/21/22 Amanda Ibrahim MD Assigned Heart and Vascular Provider 01/18/23 01/26/24 [facility] [address] [place] [address] Assigned PCP 10/28/23 documented as of this encounter
--- OUTSIDE RECORDS SUMMARY | 2024-04-08 16:29 | XMS_ITS | Encounter Summary ---
Author Organization [facility] Address [address] [place] [address] Care Team Providers Care Thermal Surfacing Machine Operator Name Role Phone Laureen Dye APRN ARTIST SUSPECT Unavailable [phone] Franny Shrestha PA-C Unavailable Franny Shrestha PA-C Unavailable [phone] Vitaliy Solo MD Primary Care Provider Bryon Bell MD Unavailable [phone] Anyi Broderick MD Unavailable Aimee Mascorro MD Unavailable [phone] Franny Shrestha PA-C Unavailable Amanda Ibrahim MD Unavailable Unavailabl e [facility] Unavailabl e Encounter Details Date Type Department Care Team (Late st Contact Info) Description 10/07/2022 MyC Medical Advice [facility] [address] [place] [address] Amanda Ibrahim MD Social History [...] on filedocumented in this encounter Care Teams Thermal Surfacing Machine Operator Relationship Specialty Start Date End Date Vitaliy Solo MD [facility] [address] [place] [address] PCP - General Emergency Medicine 07/19/22 Laureen Dye, GUS ARTIST SUSPECT [address] [place] [address] Assigned Heart and Vascular Provider 05/27/21 01/17/23 Franny Shrestha PA-C [address] [place] [address] Physician Eyeglass Cutter Urology 10/01/21 Franny Shrestha PA-C [address] [place] [address] Assigned Surgical Provider 12/29/21 11/22/22 [place] [address] [place] [address] Family Medicine 08/27/22 [place] [address] [place] [address] Assigned PCP 08/31/22 10/27/23 Aimee Mascorro MD [facility] [address], [address] [place] [address] Assigned Surgical Provider 11/23/22 12/20/22 Franny Shrestha PA-C [address] [place] [address] Assigned Surgical Provider 12/21/22 Amanda Ibrahim MD Assigned Heart and Vascular Provider 01/18/23 01/26/24 [facility] [address] [place] [address] Assigned PCP 10/28/23 documented as of this encounter
--- OUTSIDE RECORDS SUMMARY | 2024-04-08 16:29 | XMS_ITS | Encounter Summary ---
Author Organization [place] Address [address] [place] [address] Care Team Providers Care Windows Deployment Technician Name Role Phone Franny Shrestha PA-C Unavailable [phone] Vitaliy Solo MD Primary Care Provider Bryon Bell MD Unavailable [phone] Franny Shrestha PA-C Unavailable Amanda Ibrahim MD Unavailable Unavailabl e [facility] Unavailabl e Encounter Details Date Type Department Care Team (Late st Contact Info) Description 11/13/2023 MyC Medical Advice [facility] [id number] [place] [phone] Yajaira Cedeño, LAMP REPLACER Social History Tobacco Use Types Packs/Day Years [...] on filedocumented in this encounter Care Teams Windows Deployment Technician Relationship Specialty Start Date End Date Vitaliy Solo MD [facility] [address] [place] [address] PCP - General Emergency Medicine 07/19/22 Franny Shrestha PA-C [address] [place] [address] Physician Continuity Person Urology 10/01/21 [place] [address] [facility] [place] [address] Family Medicine 08/27/22 Franny Shrestha PA-C [address] [facility] [address] [place] [address] Assigned Surgical Provider 12/21/22 Amanda Ibrahim MD Assigned Heart and Vascular Provider 01/18/23 01/26/24 [facility] [address] [place] [address] Assigned PCP 10/28/23 documented as of this encounter
--- OUTSIDE RECORDS SUMMARY | 2024-04-08 16:29 | XMS_ITS | Encounter Summary ---
Author Organization [place] Address [address] [place] [address] Care Team Providers Care Construction Person Name Role Phone Franny Shrestha PA-C Unavailable Vitaliy Solo MD Primary Care Provider Bryon Bell MD Unavailable Anyi Broderick MD Unavailable Franny Shrestha PA-C Unavailable [phone] Amanda Ibrahim MD Unavailable Unavailabl e [facility] Unavailabl e Encounter Details Date Type Department Care Team (Late st Contact Info) Description 09/30/[address] [facility] [id number] [place] [phone] Yajaira Cedeño, LIGHT TRUCK DRIVER Social History Tobacco Use Types Packs/Day Years [...] on filedocumented in this encounter Care Teams Construction Person Relationship Specialty Start Date End Date Vitaliy Solo MD [facility] [address] [place] [address] PCP - General Emergency Medicine 07/19/22 Franny Shrestha PA-C [address] [place] [address] Physician Belly Dump Driver Urology 10/01/21 [place] [address] [place] [address] Family Medicine 08/27/22 [place] [address] [place] [address] Assigned PCP 08/31/22 10/27/23 Franny Shrestha PA-C [address] [place] [address] Assigned Surgical Provider 12/21/22 Amanda Ibrahim MD Assigned Heart and Vascular Provider 01/18/23 01/26/24 [facility] [address] [place] [address] Assigned PCP 10/28/23 documented as of this encounter
--- OUTSIDE RECORDS SUMMARY | 2024-04-08 16:29 | XMS_ITS | Encounter Summary ---
Author Organization [place] Address [address] [place] [address] Care Team Providers Care Noteman Name Role Phone Page, Nikki Vega RN Unavailable Unavailable Bryon Bell MD Primary Care Provider + [phone] Bryon Bell MD Unavailable [phone] Amanda Ibrahim MD Unavailable [facility]ailabl [facility] Unavailable [phone] Franny Shrestha PA-C Unavailable [phone] Franny Shrestha PA-C Unavailable [phone] Anyi Broderick MD Unavailable Byron Bell MD Unavailable [phone] Anyi Broderick MD Unavailable Vitaliy Solo MD Primary Care Provider Bryon Bell MD Unavailable [phone] nAyi Broderick MD Unavailable Aimee Mascorro MD Unavailable [phone] Franny Shrestha PA-C Unavailable [phone] Amanda Ibrahim MD Un[facility] Reason for Visit * Reason Onset Date Comments Outreach 05/14/2021 [facility] Encounter Details Date Type Department Care Team (Late st Contact Info) Description 05/14/2021 [facility] Medical Advice [address] [phone] Nikki Pierre, RN Outreach ([facility] ) Social History Tobacco [...] on filedocumented in this encounter Care Teams Noteman Relationship Specialty Start Date End Date Bryon Bell MD PCP - General Family Medicine 03/06/21 05/05/22 Vitaliy Solo MD [facility] [address] [place] [address] PCP - General Emergency Medicine 07/19/22 Nikki Pierre RN Personal Advocate & Liaison ([facility]) Family Medicine 03/06/21 03/25/22 [place] [address] [place] [address] Assigned PCP 03/11/21 01/18/22 Amanda Ibrahim MD Assigned Heart and Vascular Provider 04/22/21 05/26/21 Dye Laureen Bergman COMMERCIAL FINANCE MANAGER WOODWORKER HELPER [address] [place] [address] Assigned Heart and Vascular Provider 05/27/21 01/17/23 Franny Shrestha PA-C [address] [place] [address] Recorder Urology 10/01/21 Franny Shrestha PA-C [address] [place] [address] Assigned Surgical Provider 12/29/21 11/22/22 [place] [address] [place] [address] Assigned PCP 01/19/22 03/08/22 [place] [address] [place] [address] Assigned PCP 03/09/22 03/22/22 [place] [address] [place] [address] Assigned PCP 03/23/22 06/21/22 [place] [address] [place] [address] Family Medicine 08/27/22 [place] [address] [place] [address] Assigned PCP 08/31/22 10/27/23 Aimee Mascorro MD [facility] [address] [place] [address] Assigned Surgical Provider 11/23/22 12/20/22 Franny Shrestha PA-C [address] [place] [address] Assigned Surgical Provider 12/21/22 Amanda Ibrahim MD Assigned Heart and Vascular Provider 01/18/23 01/26/24 [facility] [address] [place] [address] Assigned PCP 10/28/23 documented as of this encounter
--- OUTSIDE RECORDS SUMMARY | 2024-04-08 16:29 | XMS_ITS | Encounter Summary ---
Author Organization [place] Address [address] [place] [address] Care Team Providers Care Senior Director Of [employer] Name Role Phone Page, Nikki Vega RN Unavailable Unavailable Bryon Bell MD Primary Care Provider + [phone] Bryon Bell MD Unavailable [phone] Laureen Dye APRN CORPORATE VP ADVERTISING & ONLINE Unavailable [phone] Franny Shrestha PA-C Unavailable Franny Shrestha PA-C Unavailable Anyi Broderick MD Unavailable Bryon Bell MD Unavailable Anyi Broderick MD Unavailable Vitaliy Solo MD Primary Care Provider Bryon Bell MD Unavailable [phone] Anyi Broderick MD Unavailable Aimee Mascorro MD Unavailable [phone] Franny Shrestha PA-C Unavailable Amanda Ibrahim MD Unavailable Unavailabl e [facility] Unavailabl e Encounter Details Date Type Department Care Team (Late st Contact Info) Description 12/07/2021 [facility] Medical Advice [facility] [address] [place] [phone] Franny Shrestha PA-C [address] [place] [address] Social History Tobacco Use Types Packs/Day Years [...] filedocumented in this encounter Care Teams Senior Director Of [employer] Solutions Relationship Specialty Start Date End Date Bryon Bell MD PCP - General Family Medicine 03/06/21 05/05/22 Vitaliy Solo MD [facility] [address] [address] PCP - General Emergency Medicine 07/19/22 Nikki Pierre RN Personal Advocate & Liaison ([facility]) Family Medicine 03/06/21 03/25/22 [place] [address] [place] [address] Assigned PCP 03/11/21 01/18/22 Laureen Dye, END TRIMMER CORPORATE VP ADVERTISING & ONLINE [address] [place] [address] Assigned Heart and Vascular Provider 05/27/21 01/17/23 Franny Shrestha PA-C [address] [place] [address] Physician President Of [place] Urology 10/01/21 Franny Shrestha PA-C [address] [place] [address] Assigned Surgical Provider 12/29/21 11/22/22 [place] [address] [place] [address] Assigned PCP 01/19/22 03/08/22 [place] [address] [place] [address] Assigned PCP 03/09/22 03/22/22 [place] [address] [place] [address] Assigned PCP 03/23/22 06/21/22 [place] [address] [place] [address] Family Medicine 08/27/22 [place] [address] [place] [address] Assigned PCP 08/31/22 10/27/23 Aimee Mascorro MD [facility] [address] [place] [address] Assigned Surgical Provider 11/23/22 12/20/22 Franny Shrestha PA-C [address] [address] Assigned Surgical Provider 12/21/22 Amanda Ibrahim MD Assigned Heart and Vascular Provider 01/18/23 01/26/24 [facility] [address] [place] [address] Assigned PCP 10/28/23 documented as of this encounter
--- OUTSIDE RECORDS SUMMARY | 2024-04-08 16:29 | XMS_ITS | Encounter Summary ---
Author Organization [place] Address [address] [place] [address] Care Team Providers Care Assembly Associate Name Role Phone Nikki Pierre RN Unavailable Unavailable Bryon Bell MD Primary Care Provider + [phone] Laureen Dye APRN ART HISTORIAN Unavailable [phone] Franny Shrestha PA-C Unavailable Franny Shrestha PA-C Unavailable Anyi Broderick MD Unavailable Bryon Bell MD Unavailable Anyi Broderick MD Unavailable Vitaliy Solo MD Primary Care Provider Bryon Bell MD Unavailable [phone] Anyi Broderick MD Unavailable Aimee Mascorro MD Unavailable [phone] Franny Shrestha PA-C Unavailable Amanda Ibrahim MD Unavailable Unavailabl e [facility] Unavailabl e Encounter Details Date Type Department Care Team (Late st Contact Info) Description 02/06/2022 [place] Medical Advice [facility] [address] [place] [address] Page, Nikki M, RN Social History Tobacco Use Types Packs/Day [...] on filedocumented in this encounter Care Teams Assembly Associate Relationship Specialty Start Date End Date Bryon Bell MD PCP - General Family Medicine 03/06/21 05/05/22 Vitaliy Solo MD [facility] [address] [place] [address] PCP - General Emergency Medicine 07/19/22 Nikki Pierre, RN Personal Advocate & Liaison ([facility]) Family Medicine 03/06/21 03/25/22 Laureen Dye, CLINICAL GENETICS LABORATORY CHIEF ART HISTORIAN [address] [place] [address] Assigned Heart and Vascular Provider 05/27/21 01/17/23 Franny Shrestha PA-C [address] [place] [address] Physician Rip Machine Operator Urology 10/01/21 Franny Shrestha PA-C [address] [place] [address] Assigned Surgical Provider 12/29/21 11/22/22 [place] [address] [place] [address] Assigned PCP 01/19/22 03/08/22 [place] [address] [place] [address] Assigned PCP 03/09/22 03/22/22 [place] [address] [place] [address] Assigned PCP 03/23/22 06/21/22 [place] [address] [place] [address] Family Medicine 08/27/22 [place] [address] [place] [address] Assigned PCP 08/31/22 10/27/23 Aimee Mascorro MD [facility] [address] [place] [address] Assigned Surgical Provider 11/23/22 12/20/22 Franny Shrestha PA-C [address] [place] [address] Assigned Surgical Provider 12/21/22 Amanda Ibrahim MD Assigned Heart and Vascular Provider 01/18/23 01/26/24 [facility] [address] [place] [address] Assigned PCP 10/28/23 documented as of this encounter
--- OUTSIDE RECORDS SUMMARY | 2024-04-08 16:29 | XMS_ITS | Encounter Summary ---
Author Organization [place] Address [address] [place] [address] Care Team Providers Care Local Company Refrigerated Truck Driver Name Role Phone Laureen Dye APRN MANUFACTURING ACCOUNTANT Unavailable [phone] Franny Shrestha PA-C Unavailable Franny Shrestha PA-C Unavailable Vitaliy Solo MD Primary Care Provider Bryon Bell MD Unavailable [phone] Anyi Broderick MD Unavailable Aimee Mascorro MD Unavailable [phone] Franny Shrestha PA-C Unavailable Amanda Ibrahim MD Unavailable Unavailabl e [facility] Unavailabl e Encounter Details Date Type Department Care Team (Late st Contact Info) Description 11/03/2022 MyC Medical Advice [facility] [address] [place] [address] Amanda Ibrahim MD Social History [...] on filedocumented in this encounter Care Teams Local Company Refrigerated Truck Driver Relationship Specialty Start Date End Date Vitaliy Solo MD [facility] [address] [place] [address] PCP - General Emergency Medicine 07/19/22 Laureen Dye, PANEL INSTRUMENT REPAIRER MANUFACTURING ACCOUNTANT [address] [place] [address] Assigned Heart and Vascular Provider 05/27/21 01/17/23 Franny Shrestha PA-C [address] [place] [address] Physician Night Coordinator Urology 10/01/21 Franny Shrestha PA-C [address] [place] [address] Assigned Surgical Provider 12/29/21 11/22/22 [place] [address] [place] [address] Family Medicine 08/27/22 [place] [address] [place] [address] Assigned PCP 08/31/22 10/27/23 Aimee Mascorro MD [facility] [address] [place] [address] Assigned Surgical Provider 11/23/22 12/20/22 Franny Shrestha PA-C [address] [place] [address] Assigned Surgical Provider 12/21/22 Amanda Ibrahim MD Assigned Heart and Vascular Provider 01/18/23 01/26/24 [facility] [address] [place] [address] Assigned PCP 10/28/23 documented as of this encounter
--- OUTSIDE RECORDS SUMMARY | 2024-04-08 16:29 | XMS_ITS | Encounter Summary ---
Author Organization [place] Address [address] [place] [address] Care Team Providers Care Enrollment Management Director Name Role Phone Laureen Dye APRN FIRE PROTECTION FABRICATOR Unavailable [phone] Franny Shrestha PA-C Unavailable Franny Shrestha PA-C Unavailable Vitaliy Solo MD Primary Care Provider Bryon Bell MD Unavailable [phone] Anyi Broderick MD Unavailable Aimee Mascorro MD Unavailable [phone] Franny Shrestha PA-C Unavailable Amanda Ibrahim MD Unavailable Unavailabl e [facility] Unavailabl e Encounter Details Date Type Department Care Team (Late st Contact Info) Description 08/01/2022 MyC Medical Advice [facility] [address] [place] [address] Amanda Ibrahim MD Social History [...] Coronavirus/COVID-19? No / Unsure 08/01/2022 11:05 AM CLINICAL SERVICES DIRECTOR documented as of this encounter Plan of Treatment Not on file documented as of this encounter Visit Diagnoses Not on filedocumented in this encounter Care Teams Enrollment Management Director Relationship Specialty Start Date End Date Vitaliy Solo MD [facility] [address] [place] [address] PCP - General Emergency Medicine 07/19/22 Laureen Dye, LACE WEAVER FIRE PROTECTION FABRICATOR [address] [place] [address] Assigned Heart and Vascular Provider 05/27/21 01/17/23 Franny Shrestha PA-C [address] [place] [address] Physician Hand Presser Urology 10/01/21 Franny Shrestha PA-C [address] [place] [address] Assigned Surgical Provider 12/29/21 11/22/22 [place] [address] [place] [address] Family Medicine 08/27/22 [place] [address] [place] [address] Assigned PCP 08/31/22 10/27/23 Aimee Mascorro MD [facility] [address] [place] [address] Assigned Surgical Provider 11/23/22 12/20/22 Franny Shrestha PA-C [address] [place] [address] Assigned Surgical Provider 12/21/22 Amanda Ibrahim MD Assigned Heart and Vascular Provider 01/18/23 01/26/24 [facility] [address] [place] [address] Assigned PCP 10/28/23 documented as of this encounter
--- OUTSIDE RECORDS SUMMARY | 2024-04-08 16:29 | XMS_ITS | Encounter Summary ---
Author Organization [place] Address [address] [place] [address] Care Team Providers Care Cleaning Porter Name Role Phone Page, Nikki Vega RN Unavailable Unavailable Bryon Bell MD Primary Care Provider + [phone] Bryon Bell MD Unavailable [phone] Laureen Dye APRN SSIS DEVELOPER Unavailable [phone] Franny Shrestha PA-C Unavailable Franny Shrestha PA-C Unavailable Anyi Broderick MD Unavailable Bryon Bell MD Unavailable [phone] Anyi Broderick MD Unavailable Vitaliy Solo MD Primary Care Provider Bryon Bell MD Unavailable [phone] Anyi Broderick MD Unavailable Aimee Mascorro MD Unavailable [phone] Franny Shrestha PA-C Unavailable Amanda Ibrahim MD Un[facility] Unavail[facility] e Encounter Details Date Type Department Care Team (Late st Contact Info) Description 08/29/2021 [facility] [place] [facility] [address] [place] [address] Nikki Pierre, RN Social History Tobacco Use [...] COVID-19? No / Unsure 08/29/2021 9:40 AM PRESIDENT [employer] documented as of this encounter Plan of Treatment Not on file documented as of this encounter Visit Diagnoses Not on filedocumented in this encounter Care Teams Cleaning Porter Relationship Specialty Start Date End Date Bryon Bell MD PCP - General Family Medicine 03/06/21 05/05/22 Vitaliy Solo MD [facility] [address] [place] [address] PCP - General Emergency Medicine 07/19/22 Nikki Pierre RN Personal Advocate & Liaison ([facility]) Family Medicine 03/06/21 03/25/22 [place] [address] [place] [address] Assigned PCP 03/11/21 01/18/22 Laureen Dye, REFRIGERATING ENGINEER SSIS DEVELOPER [address] [place] [address] Assigned Heart and Vascular Provider 05/27/21 01/17/23 Franny Shrestha PA-C [address] [place] [address] Physician Lobster Fisherman Urology 10/01/21 Franny Shrestha PA-C [address] [place] [address] Assigned Surgical Provider 12/29/21 11/22/22 [place] [address] [place] [address] Assigned PCP 01/19/22 03/08/22 [place] [address] [place] [address] Assigned PCP 03/09/22 03/22/22 [place] [address] [place] [address] Assigned PCP 03/23/22 06/21/22 [place] [address] [place] [address] Family Medicine 08/27/22 [place] [address] [place] [address] Assigned PCP 08/31/22 10/27/23 Aimee Mascorro MD [facility] [address] [place] [address] Assigned Surgical Provider 11/23/22 12/20/22 Franny Shrestha PA-C [address] [place] [address] Assigned Surgical Provider 12/21/22 Amanda Ibrahim MD Assigned Heart and Vascular Provider 01/18/23 01/26/24 [facility] [address] [place] [address] Assigned PCP 10/28/23 documented as of this encounter
--- OUTSIDE RECORDS SUMMARY | 2024-04-08 16:29 | XMS_ITS | Encounter Summary ---
Author Organization [place] Address [address] [place] [address] Care Team Providers Care Senior Linux Systems Engineer Name Role Phone Page, Nikki Vega RN Unavailable Unavailable Bryon Bell MD Primary Care Provider + [phone] Bryon Bell MD Unavailable [phone] Laureen Dye APRN NEONATAL PEDIATRIC NURSE Unavailable [phone] Franny Shrestha PA-C Unavailable Franny Shrestha PA-C Unavailable Anyi Broderick MD Unavailable Bryon Bell MD Unavailable Anyi Brodercik MD Unavailable Vitaliy Solo MD Primary Care Provider Bryon Bell MD Unavailable [phone] Anyi Broderick MD Unavailable Aimee Mascorro MD Unavailable [phone] Franny Shrestha PA-C Unavailable Amadna Ibrahim MD Un[facility] Reason for Visit * Reason Onset Date Comments MyChart Communication 06/06/2021 Encounter Details Date Type Department Care Team (Late st Contact Info) Description 06/06/2021 [facility] Medical Advice [facility] [id number] [place] [phone] [place] [address] [place] [address] MyChart Communication Social History Tobacco Use Types [...] COVID-19? No / Unsure 06/08/2021 1:05 PM GENERAL TECHNICIAN documented as of this encounter Plan of Treatment Not on file documented as of this encounter Visit Diagnoses Not on filedocumented in this encounter Care Teams Senior Linux Systems Engineer Relationship Specialty Start Date End Date Bryon Bell MD PCP - General Family Medicine 03/06/21 05/05/22 Vitaliy Solo MD [facility] [address] [place] [address] PCP - General Emergency Medicine 07/19/22 Nikki Pierre RN Personal Advocate & Liaison ([facility]) Family Medicine 03/06/21 03/25/22 [place] [address] [place] [address] Assigned PCP 03/11/21 01/18/22 Laureen Dye APRN NEONATAL PEDIATRIC NURSE [address] [place] [address] Assigned Heart and Vascular Provider 05/27/21 01/17/23 Franny Shrestha PA-C [address] [place] [address] Physician Soda Fountain Manager Urology 10/01/21 Franny Shrestha PA-C [address] [place] [address] Assigned Surgical Provider 12/29/21 11/22/22 [place] [address] [place] [address] Assigned PCP 01/19/22 03/08/22 [place] [address] [place] [address] Assigned PCP 03/09/22 03/22/22 [place] [address] [place] [address] Assigned PCP 03/23/22 06/21/22 [place] [address] [place] [address] Family Medicine 08/27/22 [place] [address] [place] [address] Assigned PCP 08/31/22 10/27/23 Aimee Mascorro MD [facility] [address] [place] [address] Assigned Surgical Provider 11/23/22 12/20/22 Franny Shrestha PA-C [address] [place] [address] Assigned Surgical Provider 12/21/22 Amanda Ibrahim MD Assigned Heart and Vascular Provider 01/18/23 01/26/24 [facility] [address] [place] [address] Assigned PCP 10/28/23 documented as of this encounter
--- OUTSIDE RECORDS SUMMARY | 2024-04-08 16:29 | XMS_ITS | Encounter Summary ---
Author Organization [place] Address [facility] [place] [address] Care Team Providers Care Credit Processor Name Role Phone Laureen Dye HARDNESS TESTER CREATIVE RECRUITER Unavailable [phone] Franny Shrestha PA-C Unavailable Franny Shrestha PA-C Unavailable Anyi Broderick MD Unavailable Vitaliy Solo MD Primary Care Provider Bryon Bell MD Unavailable [phone] Anyi Broderick MD Unavailable Aimee Mascorro MD Unavailable Franny Shrestha PA-C Unavailable Amanda Ibrahim MD Unavailable Unavailabl e [facility] Unavailabl e Encounter Details Date Type Department Care Team (Late st Contact Info) Description 06/20/2022 [facility] [place] [address] [place] [address] Laureen Dye, HARDNESS TESTER CREATIVE RECRUITER [address] [facility] [address] [place], [place] [address] Social History Tobacco Use Types Packs/Day Years [...] on filedocumented in this encounter Care Teams Credit Processor Relationship Specialty Start Date End Date Vitaliy Solo MD [facility] [address] [place] [address] PCP - General Emergency Medicine 07/19/22 Laureen Dye, HARDNESS TESTER CREATIVE RECRUITER [address] [place] [address] Assigned Heart and Vascular Provider 05/27/21 01/17/23 Franny Shrestha PA-C [address] [place] [address] Physician Production Cook Urology 10/01/21 Franny Shrestha PA-C [address] [facility] [address] [place] [address] Assigned Surgical Provider 12/29/21 11/22/22 [place] [address] [place] [address] Assigned PCP 03/23/22 06/21/22 [place] [address] [place] [address] Family Medicine 08/27/22 [place] [address] [address] [address] Assigned PCP 08/31/22 10/27/23 Aimee Mascorro MD [facility] [address] [place] [address] Assigned Surgical Provider 11/23/22 12/20/22 Franny Shrestha PA-C [address] [place] [address] Assigned Surgical Provider 12/21/22 Amanda Ibrahim MD Assigned Heart and Vascular Provider 01/18/23 01/26/24 [facility] [address] [address] Assigned PCP 10/28/23 documented as of this encounter
--- OUTSIDE RECORDS SUMMARY | 2024-04-08 16:29 | XMS_ITS | Encounter Summary ---
Author Organization [place] Address [address] [place] [address] Care Team Providers Care Product Ambassador Name Role Phone Laureen Dye APRN METER AND SERVICE LINE INSPECTOR Unavailable [phone] Franny Shrestha PA-C Unavailable Franny Shrestha PA-C Unavailable Vitaliy Solo MD Primary Care Provider Bryon Bell MD Unavailable [phone] Anyi Broderick MD Unavailable Aimee Mascorro MD Unavailable [phone] Franny Shrestha PA-C Unavailable Amanda Ibrahim MD Unavailable Unavailabl e [facility] Unavailabl e Encounter Details Date Type Department Care Team (Late st Contact Info) Description 09/15/2022 MyC Medical Advice [facility] [address] [place] [address] Amanda Ibrahim MD Social History [...] Coronavirus/COVID-19? Unable to assess 08/27/2022 1:55 PM PRINT BUYER documented as of this encounter Plan of Treatment Not on file documented as of this encounter Visit Diagnoses Not on filedocumented in this encounter Care Teams Product Ambassador Relationship Specialty Start Date End Date Vitaliy Solo MD [facility] [address] [place] [address] PCP - General Emergency Medicine 07/19/22 Laureen Dye, BOOK CRITIC METER AND SERVICE LINE INSPECTOR [address] [place] [address] Assigned Heart and Vascular Provider 05/27/21 01/17/23 Franny Shrestha PA-C [address] [place] [address] Physician Mine Deputy Urology 10/01/21 Franny Shrestha PA-C [address] [place] [address] Assigned Surgical Provider 12/29/21 11/22/22 [place] [address] [place] [address] Family Medicine 08/27/22 [place] [address] [place] [address] Assigned PCP 08/31/22 10/27/23 Aimee Mascorro MD [facility] [address] [place] [address] Assigned Surgical Provider 11/23/22 12/20/22 Franny Shrestha PA-C [address] [place] [address] Assigned Surgical Provider 12/21/22 Amanda Ibrahim MD Assigned Heart and Vascular Provider 01/18/23 01/26/24 [facility] [address] [place] [address] Assigned PCP 10/28/23 documented as of this encounter
--- OUTSIDE RECORDS SUMMARY | 2024-04-08 16:29 | XMS_ITS | Encounter Summary ---
Author Organization Agency Address [address] [place] [address] Care Team Providers Care Restorer Lace And Textiles Name Role Phone Page, Nikki Vega RN Unavailable Unavailable Bryon Bell MD Primary Care Provider [phone] Bryon Bell MD Unavailable [phone] Laureen Dye APRN ELECTRICAL MECHANIC Unavailable [phone] Franny Shrestha PA-C Unavailable [phone] Franny Shrestha PA-C Unavailable Anyi Broderick MD Unavailable Bryon Bell MD Unavailable Anyi Broderick MD Unavailable Vitaliy Solo MD Primary Care Provider Bryon Bell MD Unavailable [phone] Anyi Broderick MD Unavailable Aimee Mascorro MD Unavailable [phone] Franny Shrestha PA-C Unavailable Amanda Ibrahim MD Unavailable [facility] Unavailabl e Reason for Visit * Reason Onset Date Comments MyChart Communication 10/01/2021 KRAIG daley ch - results Encounter Details Date Type Department Care Team (Latest Contact Info) Description 10/01/2021 MyC Medical Advice [facility] [address] [place] [address] Nikki Pierre RN [facility] (PAL outreach - resu... Social History [...] reach attempts have been made. Letter sent- [facility] will monitor for f/u Nikki Pierre RN * Telephone Encounter - Nikki Pierre RN - 10/05/2021 12:18 PM CDT LM for call back - See below Nikki Pierre RN documented in this encounter Plan of Treatment Not on file documented as of this encounter Visit Diagnoses Not on filedocumented in this encounter Care Teams Restorer Lace And Textiles Relationship Specialty Start Date End Date Bryon Bell MD PCP - General Family Medicine 03/06/21 05/05/22 Vitaliy Solo MD [facility] [address] [place] [address] PCP - General Emergency Medicine 07/19/22 Nikki Pierre, RN Personal Advocate & Liaison (PAL) Family Medicine 03/06/21 03/25/22 [place] [address] [place] [address] Assigned PCP 03/11/21 01/18/22 Laureen Dye APRN ELECTRICAL MECHANIC [address] [place] [address] Assigned Heart and Vascular Provider 05/27/21 01/17/23 Franny Shrestha PA-C [address] [place] [address] Physician Neonatal Doctor Urology 10/01/21 Franny Shrestha PA-C [address] [place] [address] Assigned Surgical Provider 12/29/21 11/22/22 [place] [address] [place] [address] Assigned PCP 01/19/22 03/08/22 [place] [address] [place] [address] Assigned PCP 03/09/22 03/22/22 [place] [address] [place] [address] Assigned PCP 03/23/22 06/21/22 [place] [address] [place] [address] Family Medicine 08/27/22 [place] [address] [place] [address] Assigned PCP 08/31/22 10/27/23 Aimee Mascorro MD [facility] [address], [address] [place] [address] Assigned Surgical Provider 11/23/22 12/20/22 Franny Shrestha PA-C [address] [place] [address] Assigned Surgical Provider 12/21/22 Amanda Ibrahim MD Assigned Heart and Vascular Provider 01/18/23 01/26/24 [facility] [address] [place] [address] Assigned PCP 10/28/23 documented as of this encounter
--- OUTSIDE RECORDS SUMMARY | 2024-04-08 16:29 | XMS_ITS | Encounter Summary ---
Author Organization [facility] Address [address] [place] [address]. [place] [address] Care Team Providers Care Meal Temperer Name Role Phone Laureen Dye APRN FOIL OPERATOR Unavailable [phone] Franny Shrestha PA-C Unavailable Franny Shrestha PA-C Unavailable Anyi Broderick MD Unavailable Vitaliy Solo MD Primary Care Provider Bryon Bell MD Unavailable Anyi Broderick MD Unavailable Aimee Mascorro MD Unavailable [phone] Franny Shrestha PA-C Unavailable Amanda Ibrahim MD Unavailable Unavailabl e [facility] Unavailabl e Encounter Details Date Type Department Care Team (Late st Contact Info) Description 06/07/2022 MyC Medical Advice [facility] [address] [place] [address] Franny Shrestha PA-C [address] [facility] [address] [place] [address] Social History Tobacco Use Types Packs/Day Years [...] on filedocumented in this encounter Care Teams Meal Temperer Relationship Specialty Start Date End Date Vitaliy Solo MD [facility] [address] [place] [address] PCP - General Emergency Medicine 07/19/22 Laureen Dye, GUS FOIL OPERATOR [address] [place] [address] Assigned Heart and Vascular Provider 05/27/21 01/17/23 Franny Shrestha PA-C [address] [place] [address] Physician Quality Manager Urology 10/01/21 Franny Shrestha PA-C [address] [facility] [address] [place] [address] Assigned Surgical Provider 12/29/21 11/22/22 [place] [address] [place] [address] Assigned PCP 03/23/22 06/21/22 [place] [address] [place] [address] Family Medicine 08/27/22 [place] [address] [place] [address] Assigned PCP 08/31/22 10/27/23 Aimee Mascorro MD [facility] [address] [place] [address] Assigned Surgical Provider 11/23/22 12/20/22 Franny Shrestha PA-C [address] [place] [address] Assigned Surgical Provider 12/21/22 Amanda Ibrahim MD Assigned Heart and Vascular Provider 01/18/23 01/26/24 [facility] [address] [place] [address] Assigned PCP 10/28/23 documented as of this encounter
--- OUTSIDE RECORDS SUMMARY | 2024-04-08 16:29 | XMS_ITS | Encounter Summary ---
Author Organization [place] Address [address] [place] [address] Care Team Providers Care Bundling Machine Operator Name Role Phone Franny Shrestha PA-C Unavailable [phone] Vitaliy Solo MD Primary Care Provider Bryon Bell MD Unavailable Anyi Broderick MD Unavailable Franny Shrestha PA-C Unavailable Amanda Ibrahim MD [facility] [place] [facility] Reason for Visit * Reason Onset Date Comments Medication Request 08/08/2023 lisinopril (Z ESTRIL) 40 MG tablet Encounter Details Date Type Department Care Team (Late st Contact Info) Description 08/08/2023 [facility] [address] [address] Amanda Ibrahim MD Medication Request (lisinopril (ZESTRIL) 40 MG tablet) [...] Notes * Telephone Encounter - Tari Bourgeois - 08/08/2023 9:09 AM CST [facility] Phone Message May a detailed message be left on voicemail: yes Reason for Call: Medication Refill Request Has the patient contacted the pharmacy for the refill? Yes Name of medication being requested: lisinopril (ZESTRIL) 40 MG tablet Provider who prescribed the medication: Dr. Tolbert Pharmacy: [facility] - [address] Date medication is needed: 08/08/23 Pharmacy had not heard back on refill request and the patient is completely out of this prescription Action Taken: Other: cardiology Travel Screening: Not Applicable Thank you! [facility] CTOR MEETINGS documented in this encounter Plan of Treatment Not on file documented as of this encounter Visit Diagnoses Not on filedocumented in this encounter Care Teams Bundling Machine Operator Relationship Specialty Start Date End Date Vitaliy Solo MD [facility] [address] [place] [address] PCP - General Emergency Medicine 07/19/22 Franny Shrestha PA-C [address] [address] Physician Can Feeder Urology 10/01/21 [place] [address] [place] [address] Family Medicine 08/27/22 [place] [address] [place] [address] Assigned PCP 08/31/22 10/27/23 Franny Shrestha PA-C [address] [place] [address] Assigned Surgical Provider 12/21/22 Amanda Ibrahim MD Assigned Heart and Vascular Provider 01/18/23 01/26/24 [facility] [address] [place] [address] Assigned PCP 10/28/23 documented as of this encounter
--- OUTSIDE RECORDS SUMMARY | 2024-04-08 16:29 | XMS_ITS | Encounter Summary ---
Author Organization [facility] Address [address] [place] [address] Care Team Providers Care Grounds Person Name Role Phone Laureen Dye APRN ASSOCIATE JAVA DEVELOPER Unavailable [phone] Franny Shrestha PA-C Unavailable Franny Shrestha PA-C Unavailable [phone] Vitaliy Solo MD Primary Care Provider Bryon Bell MD Unavailable [phone] Anyi Broderick MD Unavailable Aimee Mascorro MD Unavailable [phone] Franny Shrestha PA-C Unavailable [phone] Amanda Ibrahim MD Unavailable Unavailabl e [facility] Unavailabl e Encounter Details Date Type Department Care Team (Late st Contact Info) Description 08/09/2022 MyC Medical Advice [facility] [address] [place] [address] Josie Rosa, RN Social History [...] In the last 10 days, have yo silas been in contact with someone who was confirmed or suspected to have Coronavirus/COVID-19? No / Unsure 08/01/2022 11:05 AM EMERGENCY RESPONSE COORDINATOR documented as of this encounter Plan of Treatment Not on file documented as of this encounter Visit Diagnoses Not on filedocumented in this encounter Care Teams Grounds Person Relationship Specialty Start Date End Date Vitaliy Solo MD [facility] [address] [place] [address] PCP - General Emergency Medicine 07/19/22 Laureen Dye, RESEARCH PROFESSIONAL ASSOCIATE JAVA DEVELOPER [address] [place] [address] Assigned Heart and Vascular Provider 05/27/21 01/17/23 Franny Shrestha PA-C [address] [place] [address] Physician Containers Sales Representative Urology 10/01/21 Franny Shrestha PA-C [address] [place] [address] Assigned Surgical Provider 12/29/21 11/22/22 [place] [address] [place] [address] Family Medicine 08/27/22 [place] [address] [place] [address] Assigned PCP 08/31/22 10/27/23 Aimee Mascorro MD [facility] [address], [address] [place] [address] Assigned Surgical Provider 11/23/22 12/20/22 Franny Shrestha PA-C [address] [place] [address] Assigned Surgical Provider 12/21/22 Amanda Ibrahim MD Assigned Heart and Vascular Provider 01/18/23 01/26/24 [facility] [address] [place] [address] Assigned PCP 10/28/23 documented as of this encounter
--- OUTSIDE RECORDS SUMMARY | 2024-04-08 16:30 | XMS_ITS | Encounter Summary ---
Author Organization [place] Address [address] [place] [address] Care Team Providers Care Dusting And Brushing Machine Operator Name Role Phone Page, Nikki Vega RN Unavailable Unavailable Bryon Bell MD Primary Care Provider [phone] Bryon Bell MD Unavailable [phone] Amanda Ibrahim MD Unavailable Unavailabl Laureen Dye APRN [facility] Unavailable [phone] Franny Shrestha PA-C Unavailable [phone] Franny Shrestha PA-C Unavailable [phone] Anyi Broderick MD Unavailable Bryon Bell MD Unavailable [phone] Anyi Broderick MD Unavailable Vitaliy Solo MD Primary Care Provider Bryon Bell MD Unavailable [phone] Anyi Broderick MD Unavailable Aimee Mascorro MD Unavailable [phone] Franny Shrestha PA-C Unavailable [phone] Amanda Ibrahim MD Un[facility] Encounter Details Date Type Department Care Team (Late st Contact Info) Description 05/03/2021 [facility] Medical Advice [facility] [place] [address] [facility] [address] [place] [phone] Amanda Ibrahim MD Social History Tobacco Use [...] on filedocumented in this encounter Care Teams Dusting And Brushing Machine Operator Relationship Specialty Start Date End Date Bryon Bell MD PCP - General Family Medicine 03/06/21 05/05/22 Vitaliy Solo MD [facility] [address] [address] PCP - General Emergency Medicine 07/19/22 Nikki Pierre, RN Personal Advocate & Liaison (PAL) Family Medicine 03/06/21 03/25/22 [place] [address] [place] [address] Assigned PCP 03/11/21 01/18/22 Amanda Ibrahim MD Assigned Heart and Vascular Provider 04/22/21 05/26/21 Laureen Dye, CLOTH EDGE SINGER TIRE INSPECTOR [address] [place] [address] Assigned Heart and Vascular Provider 05/27/21 01/17/23 Franny Shrestha PA-C [address] [place] [address] Physician South Asian History Professor Urology 10/01/21 Franny Shrestha PA-C [address] [place] [address] Assigned Surgical Provider 12/29/21 11/22/22 [place] [address] [place] [address] Assigned PCP 01/19/22 03/08/22 [place] [address] [place] [address] Assigned PCP 03/09/22 03/22/22 [place] [address] [place] [address] Assigned PCP 03/23/22 06/21/22 [place] [address] [place] [address] Family Medicine 08/27/22 [place] [address] [place] [address] Assigned PCP 08/31/22 10/27/23 Aimee Mascorro MD [facility] [address] [place] [address] Assigned Surgical Provider 11/23/22 12/20/22 Franny Shrestha PA-C [address] [place] [address] Assigned Surgical Provider 12/21/22 Amanda Ibrahim MD Assigned Heart and Vascular Provider 01/18/23 01/26/24 [facility] [address] [place] [address] Assigned PCP 10/28/23 documented as of this encounter
--- OUTSIDE RECORDS SUMMARY | 2024-04-08 16:30 | XMS_ITS | Encounter Summary ---
Author Organization [place] Address [address] [place] [address] Care Team Providers Care Branch Specialist Name Role Phone Page, Nikki Vega RN Unavailable Unavailable Bryon Bell MD Primary Care Provider [phone] Bryon Bell MD Unavailable [phone] Amanda Ibrahim MD Unavailable Unavailabl [facility] Unavailable [phone] Franny Shrestha PA-C Unavailable [phone] Franny Shrestha PA-C Unavailable [phone] Anyi Broderick MD Unavailable Bryon Bell MD Unavailable [phone] Anyi Broderick MD Unavailable Vitaliy Solo MD Primary Care Provider Bryon Bell MD Unavailable [phone] Anyi Broderick MD Unavailable Aimee Mascorro MD Unavailable [phone] Franny Shrestha PA-C Unavailable [phone] Amanda Ibrahim MD Un[facility] Unavail[facility] e Reason for Visit * Reason Onset Date Comments MyChart Communication 04/09/2021 Encounter Details Date Type Department Care Team (Late st Contact Info) Description 04/09/2021 [facility] [address] [place] [address] [place] [address] [place] [address] MyChart Communication Social History Tobacco Use Types [...] on filedocumented in this encounter Care Teams Branch Specialist Relationship Specialty Start Date End Date Bryon Bell MD PCP - General Family Medicine 03/06/21 05/05/22 Vitaliy Solo MD [facility] [address] [place] [address] PCP - General Emergency Medicine 07/19/22 Nikki Pierre RN Personal Advocate & Liaison (PAL) Family Medicine 03/06/21 03/25/22 [place] [address] [place] [address] Assigned PCP 03/11/21 01/18/22 Amanda Ibrahim MD Assigned Heart and Vascular Provider 04/22/21 05/26/21 Hardik Laureen GUS Bergman DENTAL SERVICES DIRECTOR [address] [place] [address] Assigned Heart and Vascular Provider 05/27/21 01/17/23 Franny Shrestha PA-C [address] [place], [place] [address] Physician Sightseeing Guide Urology 10/01/21 Franny Shrestha PA-C [address] [place] [address] Assigned Surgical Provider 12/29/21 11/22/22 [place] [address] [place] [address] Assigned PCP 01/19/22 03/08/22 [place] [address] [place] [address] Assigned PCP 03/09/22 03/22/22 [place] [address] [place] [address] Assigned PCP 03/23/22 06/21/22 [place] [address] [place] [address] Family Medicine 08/27/22 [place] [address] [place] [address] Assigned PCP 08/31/22 10/27/23 Aimee Mascorro MD [facility] [address] [place] [address] Assigned Surgical Provider 11/23/22 12/20/22 Franny Shrestha PA-C [address] [place] [address] Assigned Surgical Provider 12/21/22 Amanda Ibrahim MD Assigned Heart and Vascular Provider 01/18/23 01/26/24 [facility] [address] [address] [address] Assigned PCP 10/28/23 documented as of this encounter
--- OUTSIDE RECORDS SUMMARY | 2024-04-08 16:30 | XMS_ITS | Encounter Summary ---
Author Organization [place] Address [address] [place] [address] Care Team Providers Care Dynamometer Tester Name Role Phone Page, Nikki Vega RN Unavailable Unavailable Bryon Bell MD Primary Care Provider + [phone] Bryon Bell MD Unavailable [phone] Amanda Ibrahim MD Unavailable Unavailabl Laureen Dye APRN [facility] Unavailable [phone] Franny Shrestha PA-C Unavailable [phone] Franny Shrestha PA-C Unavailable [phone] Anyi Broderick MD Unavailable Bryon Bell MD Unavailable [phone] Anyi Broderick MD Unavailable Vitaliy Solo MD Primary Care Provider Bryon Bell MD Unavailable [phone] Anyi Broderick MD Unavailable Aimee Mascorro MD Unavailable [phone] Franny Shrestha PA-C Unavailable [phone] Amanda Ibrahim MD Un[facility] e Encounter Details Date Type Department Care Team (Late st Contact Info) Description 05/14/2021 [facility] Medical Advice [facility] [place] [address] [facility] [address] [place] [phone] Amanda Ibrahim MD Social History Tobacco Use [...] on filedocumented in this encounter Care Teams Dynamometer Tester Relationship Specialty Start Date End Date Bryon Bell MD PCP - General Family Medicine 03/06/21 05/05/22 Vitaliy Solo MD [facility] [address] [place] [address] PCP - General Emergency Medicine 07/19/22 Nikki Pierre, RN Personal Advocate & Liaison (PAL) Family Medicine 03/06/21 03/25/22 [place] [address] [place] [address] Assigned PCP 03/11/21 01/18/22 Amanda Ibrahim MD Assigned Heart and Vascular Provider 04/22/21 05/26/21 Laureen Dye, DAIRY HUSBANDMAN WOLF HUNTER [address] [place] [address] Assigned Heart and Vascular Provider 05/27/21 01/17/23 Franny Shrestha PA-C [address] [place] [address] Physician Skip Miner Blasting Urology 10/01/21 Franny Shrestha PA-C [address] [place] [address] Assigned Surgical Provider 12/29/21 11/22/22 [place] [address] [place] [address] Assigned PCP 01/19/22 03/08/22 [place] [address] [place] [address] Assigned PCP 03/09/22 03/22/22 [place] [address] [place] [address] Assigned PCP 03/23/22 06/21/22 [place] [address] [place] [address] Family Medicine 08/27/22 [place] [address] [place] [address] Assigned PCP 08/31/22 10/27/23 Aimee Mascorro MD [facility] [address], [address] [place] [address] Assigned Surgical Provider 11/23/22 12/20/22 Franny Shrestha PA-C [address] [place] [address] Assigned Surgical Provider 12/21/22 Amanda Ibrahim MD Assigned Heart and Vascular Provider 01/18/23 01/26/24 [facility] [address] [place] [address] Assigned PCP 10/28/23 documented as of this encounter
--- OUTSIDE RECORDS SUMMARY | 2024-04-08 16:30 | XMS_ITS | Encounter Summary ---
Author Organization [place] Address [address] [place] [address] Care Team Providers Care Hand Glass Cutter Name Role Phone No Ref-Primary, Physician Primary Care Provider Bryon Bell MD Unavailable [phone] Bryon Bell MD Unavailable [phone] Anyi Broderick MD Unavailable Nikki Pierre RN Unavailable Unavailable Bryon Bell MD Primary Care Provider + [phone] Bryon Bell MD Unavailable [phone] Amanda Ibrahim MD Unavailable UnavailLaureen Doe APRN PERISHABLE FRUIT INSPECTOR Unavailable [phone] Franny Shrestha PA-C Unavailable [phone] Franny Shrestha PA-C Unavailable Anyi Broderick MD Unavailable Bryon Bell MD Unavailable Anyi Broderick MD Unavailable Vitaliy Solo MD Primary Care Provider Bryon Bell MD Unavailable [phone] Anyi Broderick MD Unavailable Aimee Mascorro MD Unavailable [phone] Franny Shrestha PA-C Unavailable Amanda Ibrahim MD Un[facility] Reason for Visit * Reason Onset Date Comments MyChart Communication 08/26/2018 Encounter Details Date Type Department Care Team (Late st Contact Info) Description 08/26/2018 MyC Medical Advice [facility] [address] [place] [address] [place] [address] [facility] [place] [address] MyChart Communication Social History Tobacco Use Types [...] on filedocumented in this encounter Care Teams Hand Glass Cutter Relationship Specialty Start Date End Date No Ref-Primary, Physician PCP - General 08/14/18 03/05/21 [place] [address] [place] [address] PCP - Assigned PCP 07/30/18 09/08/18 Bryon Bell MD PCP - General Family Medicine 03/06/21 05/05/22 Vitaliy Solo MD [facility] [address] [place] [address] PCP - General Emergency Medicine 07/19/22 [place] [address] [place] [address] Assigned PCP 07/30/18 01/18/21 [place] [address] [place] [address] Assigned PCP 01/19/21 03/10/21 Nikki Pierre RN Personal Advocate & Liaison (PAL) Family Medicine 03/06/21 03/25/22 [place] [address] [place] [address] Assigned PCP 03/11/21 01/18/22 Amanda Ibrahim MD Assigned Heart and Vascular Provider 04/22/21 05/26/21 Laureen Dye APRN PERISHABLE FRUIT INSPECTOR [address] [place] [address] Assigned Heart and Vascular Provider 05/27/21 01/17/23 Franny Shrestha PA-C [address] [place] [address] Physician Cigarette Maker Urology 10/01/21 Franny Shrestha PA-C [address] [place] [address] Assigned Surgical Provider 12/29/21 11/22/22 [place] [address] [address] [address] Assigned PCP 01/19/22 03/08/22 [place] [address] [place] [address] Assigned PCP 03/09/22 03/22/22 [place] [address] [place] [address] Assigned PCP 03/23/22 06/21/22 [place] [address] [place] [address] Family Medicine 08/27/22 [place] [address] [place] [address] Assigned PCP 08/31/22 10/27/23 Aimee Mascorro MD [facility] [address], [address] [place] [address] Assigned Surgical Provider 11/23/22 12/20/22 Franny Shrestha PA-C [address] [place] [address] Assigned Surgical Provider 12/21/22 Amanda Ibrahim MD Assigned Heart and Vascular Provider 01/18/23 01/26/24 [facility] [address] [place] [address] Assigned PCP 10/28/23 documented as of this encounter
--- OUTSIDE RECORDS SUMMARY | 2024-04-08 16:30 | XMS_ITS | Encounter Summary ---
Author Organization [place] Address [address] [place] [address] Care Team Providers Care Director Fixed Income Name Role Phone No Ref-Primary, Physician Primary Care Provider Bryon Bell MD Unavailable [phone] Bryon Bell MD Unavailable [phone] Anyi Broderick MD Unavailable Nikki Pierre RN Unavailable Unavailable Bryon Bell MD Primary Care Provider + [phone] Bryon Bell MD Unavailable [phone] Amanda Ibrahim MD Unavailable UnavailLaureen Doe APRN HYDROGRAPHIC SURVEYOR Unavailable [phone] Franny Shrestha PA-C Unavailable Franny Shrestha PA-C Unavailable Anyi Broderick MD Unavailable Bryon Bell MD Unavailable Anyi Broderick MD Unavailable Vitaliy Solo MD Primary Care Provider Bryon Bell MD Unavailable [phone] Anyi Broderick MD Unavailable Aimee Mascorro MD Unavailable [phone] Franny Shrestha PA-C Unavailable [phone] Amanda Ibrahim MD Unavailable Unavailabl e [facility] e Encounter Details Date Type Department Care Team (Late st Contact Info) Description 08/21/2018 MyC Medical Advice [facility] [address] [place] [phone] [place] [address] [facility] [place] [address] Social History Tobacco Use Types Packs/Day Years [...] on filedocumented in this encounter Care Teams Director Fixed Income Relationship Specialty Start Date End Date No Ref-Primary, Physician PCP - General 08/14/18 03/05/21 [place] [address] [place] [address] PCP - Assigned PCP 07/30/18 09/08/18 Bryon Bell MD PCP - General Family Medicine 03/06/21 05/05/22 Vitaliy Solo MD [facility] [address] [place] [address] PCP - General Emergency Medicine 07/19/22 [place] [address] [place] [address] Assigned PCP 07/30/18 01/18/21 [place] [address] [place] [address] Assigned PCP 01/19/21 03/10/21 Nikki Pierre, SHREMAN Personal Advocate & Liaison (PAL) Family Medicine 03/06/21 03/25/22 [place] [address] [place] [address] Assigned PCP 03/11/21 01/18/22 Amanda Ibrahim MD Assigned Heart and Vascular Provider 04/22/21 05/26/21 Laureen Dye APRN HYDROGRAPHIC SURVEYOR [address] [place] [address] Assigned Heart and Vascular Provider 05/27/21 01/17/23 Franny Shrestha PA-C [address] [place] [address] Physician Stock Drier Tender Urology 10/01/21 Franny Shrestha PA-C [address] [place] [address] Assigned Surgical Provider 12/29/21 11/22/22 [place] [address] [place] [address] Assigned PCP 01/19/22 03/08/22 [place] [address] [place] [address] Assigned PCP 03/09/22 03/22/22 [place] [address] [place] [address] Assigned PCP 03/23/22 06/21/22 [place] [address] [place] [address] Family Medicine 08/27/22 [place] [address] [place] [address] Assigned PCP 08/31/22 10/27/23 Aimee Mascorro MD [facility] [address], [address] [place] [address] Assigned Surgical Provider 11/23/22 12/20/22 Franny Shrestha PA-C [address] [place] [address] Assigned Surgical Provider 12/21/22 Amanda Ibrahim MD Assigned Heart and Vascular Provider 01/18/23 01/26/24 [facility] [address] [place] [address] Assigned PCP 10/28/23 documented as of this encounter
--- OUTSIDE RECORDS SUMMARY | 2024-04-08 16:30 | XMS_ITS | Encounter Summary ---
Author Organization [place] Address [address] [place] [address] Care Team Providers Care Rouge Presser Name Role Phone Page, Nikki Vega RN Unavailable Unavailable Bryon Bell MD Primary Care Provider + [phone] Bryon Bell MD Unavailable [phone] Amanda Ibrahim MD Unavailable Unavailabl Laureen Dye APRN [facility] Unavailable [phone] Franny Shrestha PA-C Unavailable [phone] Franny Shrestha PA-C Unavailable [phone] Anyi Broderick MD Unavailable Bryon Bell MD Unavailable [phone] Anyi Broderick MD Unavailable Vitaliy Solo MD Primary Care Provider Bryon Bell MD Unavailable [phone] Anyi Broderick MD Unavailable Aimee Mascorro MD Unavailable [phone] Franny Shrestha PA-C Unavailable Amanda Ibrahim MD Un[facility] e Encounter Details Date Type Department Care Team (Late st Contact Info) Description 04/19/2021 [facility] Medical Advice [facility] [place] [address] [facility] [address] [place] [phone] Amanda Ibrahim MD Social History Tobacco Use [...] on filedocumented in this encounter Care Teams Rouge Presser Relationship Specialty Start Date End Date Bryon Bell MD PCP - General Family Medicine 03/06/21 05/05/22 Vitaliy Solo MD [facility] & [address] [address] PCP - General Emergency Medicine 07/19/22 Nikki Pierre, RN Personal Advocate & Liaison (PAL) Family Medicine 03/06/21 03/25/22 [place] [address] [place] [address] Assigned PCP 03/11/21 01/18/22 Amanda Ibrahim MD Assigned Heart and Vascular Provider 04/22/21 05/26/21 Laureen Dye, HEALTH AND SAFETY INSTRUCTOR NYLON MACHINE OPERATOR [address] [place] [address] Assigned Heart and Vascular Provider 05/27/21 01/17/23 Franny Shrestha PA-C [address] [place] [address] Physician Museum Specialist Urology 10/01/21 Franny Shrestha PA-C [address] [place] [address] Assigned Surgical Provider 12/29/21 11/22/22 [place] [address] [place] [address] Assigned PCP 01/19/22 03/08/22 [place] [address] [place] [address] Assigned PCP 03/09/22 03/22/22 [place] [address] [place] [address] Assigned PCP 03/23/22 06/21/22 [place] [address] [place] [address] Family Medicine 08/27/22 [place] [address] [place] [address] Assigned PCP 08/31/22 10/27/23 Aimee Mascorro MD [facility] [address], [address] [place] [address] Assigned Surgical Provider 11/23/22 12/20/22 Franny Shrestha PA-C [address] [place] [address] Assigned Surgical Provider 12/21/22 Amanda Ibrahim MD Assigned Heart and Vascular Provider 01/18/23 01/26/24 [facility] [address] [place] [address] Assigned PCP 10/28/23 documented as of this encounter
--- OUTSIDE RECORDS SUMMARY | 2024-04-08 16:30 | XMS_ITS | Encounter Summary ---
Author Organization [facility] Address [address] [place] [address] Care Team Providers Care Car Installations Supervisor Name Role Phone Page, Nikki Vega RN Unavailable Unavailable Bryon Bell MD Primary Care Provider + [phone] Bryon Bell MD Unavailable [phone] Amanda Ibrahim MD Unavailable Unavailabl Laureen Dye APRN [facility] Unavailable [phone] Franny Shrestha PA-C Unavailable [phone] Franny Shrestha PA-C Unavailable [phone] Anyi Broderick MD Unavailable Bryon Bell MD Unavailable [phone] Anyi Broderick MD Unavailable Vitaliy Solo MD Primary Care Provider Bryon Bell MD Unavailable [phone] Anyi Broderick MD Unavailable Aimee Mascorro MD Unavailable [phone] Franny Shrestha PA-C Unavailable Amanda Ibrahim MD Unavailable [facility] Unavail[facility] e Encounter Details Date Type Department Care Team (Late st Contact Info) Description 04/19/2021 [facility] Adv[facility] [place] [address] [facility] [address] [place] [phone] Amanda Ibrahim MD Social History Tobacco Use [...] on filedocumented in this encounter Care Teams Car Installations Supervisor Relationship Specialty Start Date End Date Bryon Bell MD PCP - General Family Medicine 03/06/21 05/05/22 Vitaliy Solo MD [facility] & [address] [address] PCP - General Emergency Medicine 07/19/22 Nikki Pierre, RN Personal Advocate & Liaison (PAL) Family Medicine 03/06/21 03/25/22 [place] [address] [place] [address] Assigned PCP 03/11/21 01/18/22 Amanda Ibrahim MD Assigned Heart and Vascular Provider 04/22/21 05/26/21 Laureen Dye, ENERGY CROP FARMER FACULTY I ON CALL MEDICAL ASSISTANT [address] [place] [address] Assigned Heart and Vascular Provider 05/27/21 01/17/23 Franny Shrestha PA-C [address] [place] [address] Physician Semiautomatic Stitcher Operator Urology 10/01/21 Franny Shrestha PA-C [address] [place] [address] Assigned Surgical Provider 12/29/21 11/22/22 [place] [address] [place] [address] Assigned PCP 01/19/22 03/08/22 [place] [address] [place] [address] Assigned PCP 03/09/22 03/22/22 [place] [address] [place] [address] Assigned PCP 03/23/22 06/21/22 [place] [address] [place] [address] Family Medicine 08/27/22 [place] [address] [place] [address] Assigned PCP 08/31/22 10/27/23 Aimee Mascorro MD [facility] [address] [place] [address] Assigned Surgical Provider 11/23/22 12/20/22 Franny Shrestha PA-C [address] [place] [address] Assigned Surgical Provider 12/21/22 Amanda Ibrahim MD Assigned Heart and Vascular Provider 01/18/23 01/26/24 [facility] [address] [place] [address] Assigned PCP 10/28/23 documented as of this encounter
--- OUTSIDE RECORDS SUMMARY | 2024-04-08 16:30 | XMS_ITS | Encounter Summary ---
Author Organization [place] Address [address] [place] [address] Care Team Providers Care Seal Delivery Vehicle Team Technician Name Role Phone Page, Nikki Vega RN Unavailable Unavailable Bryon Bell MD Primary Care Provider + [phone] Bryon Bell MD Unavailable [phone] Amanda Ibrahim MD Unavailable Unavailabl Laureen Dye APRN [facility] Unavailable [phone] Franny Shrestha PA-C Unavailable [phone] Franny Shrestha PA-C Unavailable [phone] Anyi Broderick MD Unavailable rByon Bell MD Unavailable [phone] Anyi Broderick MD Unavailable Vitaliy Solo MD Primary Care Provider Bryon Bell MD Unavailable [phone] Anyi Broderick MD Unavailable Aimee Mascorro MD Unavailable [phone] Franny Shrestha PA-C Unavailable [phone] Amanda Ibrahim MD Un[facility] e Encounter Details Date Type Department Care Team (Late st Contact Info) Description 04/18/2021 [facility] [address] [place] [address] [place] [address] [facility] [place] [address] Social History Tobacco Use Types Packs/Day Years [...] on filedocumented in this encounter Care Teams Seal Delivery Vehicle Team Technician Relationship Specialty Start Date End Date Bryon Bell MD PCP - General Family Medicine 03/06/21 05/05/22 Vitaliy Solo MD [facility] [address] [place] [address] PCP - General Emergency Medicine 07/19/22 Nikki Pierre, RN Personal Advocate & Liaison (PAL) Family Medicine 03/06/21 03/25/22 [place] [address] [place] [address] Assigned PCP 03/11/21 01/18/22 Amanda Ibrahim MD Assigned Heart and Vascular Provider 04/22/21 05/26/21 Hardik Laureen GUS Bergman FOLDER TAPER OPERATOR [address] [place] [address] Assigned Heart and Vascular Provider 05/27/21 01/17/23 Franny Shrestha PA-C [address] [place] [address] Physician Solderer Urology 10/01/21 Franny Shrestha PA-C [address] [place] [address] Assigned Surgical Provider 12/29/21 11/22/22 [place] [address] [place] [address] Assigned PCP 01/19/22 03/08/22 [place] [address] [place] [address] Assigned PCP 03/09/22 03/22/22 [place] [address] [place] [address] Assigned PCP 03/23/22 06/21/22 [place] [address] [place] [address] Family Medicine 08/27/22 [place] [address] [address] [place] [place] [address] Assigned PCP 08/31/22 10/27/23 Aimee Mascorro MD [facility] [address], [address] [place] [address] Assigned Surgical Provider 11/23/22 12/20/22 Franny Shrestha PA-C [address] [place] [address] Assigned Surgical Provider 12/21/22 Amanda Ibrahim MD Assigned Heart and Vascular Provider 01/18/23 01/26/24 [facility] [address] [place] [address] Assigned PCP 10/28/23 documented as of this encounter
--- OUTSIDE RECORDS SUMMARY | 2024-04-08 16:30 | XMS_ITS | Clinical Summary ---
Author Organization [facility] Address [place], [place] [address] Care Team Providers Care Reiki Practitioner Name Role Phone Vitaliy Solo MD Primary Care Provider Allergies No known active allergies Medications Medication [...] Noted Date Diagnosed Date Chest pain 01/23/2013 Social History Tobacco Use Types Packs/Day Years [...] 65+ (1 of 1 - PCV) 2009 RSV vaccine for adults or pr egnancy (1 - 1-dose 75+ series) 2019 COVID-19 vaccine series ( season) 2024 02/19/2021, 01/22/2021 Influenza for age 65+ 03/07/2024 Advance Directives * Full Code (Latest Code Status on File) Date Activated Date Inactivated Comments 01/23/2013 1:38 AM 01/23/2013 4:48 PM Care Teams Reiki Practitioner Relationship Specialty Start Date End Date Vitaliy Solo MD [address] [place] [address] PCP - General Internal Medicine 11/10/23
--- OUTSIDE RECORDS SUMMARY | 2024-04-08 16:30 | XMS_ITS | Encounter Summary ---
Author Organization [place] Address [address] [place] [address] Care Team Providers Care Broadcast Chief Engineer Name Role Phone Page, Nikki Vega RN Unavailable Unavailable Bryon Bell MD Primary Care Provider + [phone] Bryon Bell MD Unavailable [phone] Amanda Ibrahim MD Unavailable Unavailabl [facility] Hospital[facility]N [facility] Unavailable [phone] Franny Shrestha PA-C Unavailable [phone] Franny Shrestha PA-C Unavailable [phone] Anyi Broderick MD Unavailable Bryon Bell MD Unavailable [phone] Anyi Broderick MD Unavailable Vitaliy Solo MD Primary Care Provider Bryon Bell MD Unavailable [phone] Anyi Broderick MD Unavailable Aimee Mascorro MD Unavailable [phone] Franny Shrestha PA-C Unavailable [phone] Amanda Ibrahim MD Un[facility]ail[facility] e Reason for Visit * Reason Onset Date Comments MyChart Communication 05/03/2021 Encounter Details Date Type Department Care Team (Late st Contact Info) Description 05/03/2021 [facility] [address] [place] [phone] [place] [address] [place] [address] MyChart Communication Social History Tobacco Use Types [...] on filedocumented in this encounter Care Teams Broadcast Chief Engineer Relationship Specialty Start Date End Date Bryon Bell MD PCP - General Family Medicine 03/06/21 05/05/22 Vitaliy Solo MD [facility] [address] [place] [address] PCP - General Emergency Medicine 07/19/22 Nikki Pierre RN Personal Advocate & Liaison (PAL) Family Medicine 03/06/21 03/25/22 [place] [address] [place] [address] Assigned PCP 03/11/21 01/18/22 Amanda Ibrahim MD Assigned Heart and Vascular Provider 04/22/21 05/26/21 Hardik Laureen GUS Bergman CAR DISPATCHER [address] [place] [address] Assigned Heart and Vascular Provider 05/27/21 01/17/23 Franny Shrestha PA-C [address] [place], [place] [address] Physician Inside Polisher Urology 10/01/21 Franny Shrestha PA-C [address] [place] [address] Assigned Surgical Provider 12/29/21 11/22/22 [place] [address] [place] [address] Assigned PCP 01/19/22 03/08/22 [place] [address] [place] [address] Assigned PCP 03/09/22 03/22/22 [place] [address] [place] [address] Assigned PCP 03/23/22 06/21/22 [place] [address] [place] [address] Family Medicine 08/27/22 [place] [address] [place] [address] Assigned PCP 08/31/22 10/27/23 Aimee Mascorro MD [facility] [address] [place] [address] Assigned Surgical Provider 11/23/22 12/20/22 Franny Shrestha PA-C [address] [place] [address] Assigned Surgical Provider 12/21/22 Amanda Ibrahim MD Assigned Heart and Vascular Provider 01/18/23 01/26/24 [facility] [address] [address] [address] Assigned PCP 10/28/23 documented as of this encounter
--- OUTSIDE RECORDS SUMMARY | 2024-04-08 16:30 | XMS_ITS | Encounter Summary ---
Author Organization [place] Address [address] [place] [address] Care Team Providers Care Link Knitting Machine Operator Name Role Phone No Ref-Primary, Physician Primary Care Provider Bryon Bell MD Unavailable [phone] Bryon Bell MD Unavailable [phone] Anyi Broderick MD Unavailable Nikki Pierre RN Unavailable Unavailable Bryon Bell MD Primary Care Provider + [phone] Bryon Bell MD Unavailable [phone] Amanda Ibrahim MD Unavailable UnavailLaureen Doe APRN SERVICES COORDINATOR Unavailable [phone] Franny Shrestha PA-C Unavailable Franny Shrestha PA-C Unavailable Anyi Broderick MD Unavailable Bryon Bell MD Unavailable [phone] Anyi Broderick MD Unavailable Vitaliy Solo MD Primary Care Provider Bryon Bell MD Unavailable [phone] Anyi Broderick MD Unavailable Aimee Mascorro MD Unavailable Franny Shrestha PA-C Unavailable Amanda Ibrahim MD Unavailable Unavailabl e [facility] Encounter Details Date Type Department Care Team (Late st Contact Info) Description 08/28/2018 MyC Medical Advice [facility] [address] [place] [phone] [place] [address] [facility] [place] [address] Social History Tobacco Use Types Packs/Day Years [...] on filedocumented in this encounter Care Teams Link Knitting Machine Operator Relationship Specialty Start Date End Date No Ref-Primary, Physician PCP - General 08/14/18 03/05/21 [place] [address] [place] [address] PCP - Assigned PCP 07/30/18 09/08/18 Bryon Bell MD PCP - General Family Medicine 03/06/21 05/05/22 Vitaliy Solo MD [facility] [address] [place] [address] PCP - General Emergency Medicine 07/19/22 [place] [address] [place] [address] Assigned PCP 07/30/18 01/18/21 [place] [address] [place] [address] Assigned PCP 01/19/21 03/10/21 Nikki Pierre, SHERMAN Personal Advocate & Liaison (PAL) Family Medicine 03/06/21 03/25/22 [place] [address] [place] [address] Assigned PCP 03/11/21 01/18/22 Amanda Ibrahim MD Assigned Heart and Vascular Provider 04/22/21 05/26/21 Laureen Dye APRN SERVICES COORDINATOR [address] [place] [address] Assigned Heart and Vascular Provider 05/27/21 01/17/23 Franny Shrestha PA-C [address] [place] [address] Physician Compactor Driver Urology 10/01/21 Franny Shrestha PA-C [address] [place] [address] Assigned Surgical Provider 12/29/21 11/22/22 [place] [address] [place] [address] Assigned PCP 01/19/22 03/08/22 [place] [address] [place] [address] Assigned PCP 03/09/22 03/22/22 [place] [address] [place] [address] Assigned PCP 03/23/22 06/21/22 [place] [address] [place] [address] Family Medicine 08/27/22 [place] [address] [place] [address] Assigned PCP 08/31/22 10/27/23 Aimee Mascorro MD [facility] [address] [place] [address] Assigned Surgical Provider 11/23/22 12/20/22 Franny Shrestha PA-C [address] [place] [address] Assigned Surgical Provider 12/21/22 Amanda Ibrahim MD Assigned Heart and Vascular Provider 01/18/23 01/26/24 [facility] [address] [place] [address] Assigned PCP 10/28/23 documented as of this encounter
--- OUTSIDE RECORDS SUMMARY | 2024-04-08 16:30 | XMS_ITS | Encounter Summary ---
Author Organization [place] Address [address] [place] [address] Care Team Providers Care Male Infertility Specialist Name Role Phone Page, Nikki Vega RN Unavailable Unavailable Bryon Bell MD Primary Care Provider + [phone] Bryon Bell MD Unavailable [phone] Amanda Ibrahim MD Unavailable Unavailabl [facility]N [facility] Unavailable [phone] Franny Shrestha PA-C Unavailable [phone] Franny Shrestha PA-C Unavailable [phone] Anyi Broderick MD Unavailable Bryon Bell MD Unavailable [phone] Anyi Broderick MD Unavailable Vitaliy Solo MD Primary Care Provider Bryon Bell MD Unavailable [phone] Anyi Broderick MD Unavailable Aimee Mascorro MD Unavailable [phone] Franny Shrestha PA-C Unavailable [phone] Amanda Ibrahim MD Un[facility] Reason for Visit * Reason Onset Date Comments MyChart Communication 05/08/2021 Encounter Details Date Type Department Care Team (Late st Contact Info) Description 05/08/2021 [facility] [address] [place] [phone] [place] [address] [place] [address] MyChart Communication Social History Tobacco Use Types [...] on filedocumented in this encounter Care Teams Male Infertility Specialist Relationship Specialty Start Date End Date Bryon Bell MD PCP - General Family Medicine 03/06/21 05/05/22 Vitaliy Solo MD [facility] [address] [place] [address] PCP - General Emergency Medicine 07/19/22 Nikki Pierre RN Personal Advocate & Liaison (PAL) Family Medicine 03/06/21 03/25/22 [place] [address] [place] [address] Assigned PCP 03/11/21 01/18/22 Amanda Ibrahim MD Assigned Heart and Vascular Provider 04/22/21 05/26/21 Hardik Laureen GUS Bergman CONCEPT ARTIST [address] [place] [address] Assigned Heart and Vascular Provider 05/27/21 01/17/23 Franny Shrestha PA-C [address] [place], [place] [address] Physician Help Desk Specialist Urology 10/01/21 Franny Shrestha PA-C [address] [place] [address] Assigned Surgical Provider 12/29/21 11/22/22 [place] [address] [place] [address] Assigned PCP 01/19/22 03/08/22 [place] [address] [place] [address] Assigned PCP 03/09/22 03/22/22 [place] [address] [place] [address] Assigned PCP 03/23/22 06/21/22 [place] [address] [place] [address] Family Medicine 08/27/22 [place] [address] [place] [address] Assigned PCP 08/31/22 10/27/23 Aimee Mascorro MD [facility] [address] [place] [address] Assigned Surgical Provider 11/23/22 12/20/22 Franny Shrestha PA-C [address] [place] [address] Assigned Surgical Provider 12/21/22 Amanda Ibrahim MD Assigned Heart and Vascular Provider 01/18/23 01/26/24 [facility] [address] [address] Assigned PCP 10/28/23 documented as of this encounter
--- OUTSIDE RECORDS SUMMARY | 2024-04-08 16:30 | XMS_ITS | Encounter Summary ---
Author Organization [place] Address [address] [place] [address] Care Team Providers Care Band Straightener Name Role Phone No Ref-Primary, Physician Primary Care Provider Bryon Bell MD Unavailable [phone] Bryon Bell MD Unavailable [phone] Anyi Broderick MD Unavailable Nikki Pierre RN Unavailable Unavailable Bryon Bell MD Primary Care Provider + [phone] Bryon Bell MD Unavailable [phone] Amanda Ibrahim MD Unavailable UnavailLaureen Doe APRN PRINTED CIRCUIT BOARDS PLASMA ETCHER Unavailable [phone] Franny Shrestha PA-C Unavailable [phone] Franny Shrestha PA-C Unavailable [phone] Anyi Broderick MD Unavailable Bryon Bell MD Unavailable Anyi Broderick MD Unavailable Vitaliy Solo MD Primary Care Provider Bryon Bell MD Unavailable [phone] Anyi Broderick MD Unavailable Aimee Mascorro MD Unavailable [phone] Franny Shrestha PA-C Unavailable Amanda Ibrahim MD Unavailable Unavailabl e [facility] Encounter Details Date Type Department Care Team (Late st Contact Info) Description 08/26/[address] [facility] [address] [place] [phone] [place] [address] [facility] [place] [address] Social History Tobacco Use Types Packs/Day Years [...] on filedocumented in this encounter Care Teams Band Straightener Relationship Specialty Start Date End Date No Ref-Primary, Physician PCP - General 08/14/18 03/05/21 [place] [address] [place] [address] PCP - Assigned PCP 07/30/18 09/08/18 Bryon Bell MD PCP - General Family Medicine 03/06/21 05/05/22 Vitaliy Solo MD [facility] [address] [place] [address] PCP - General Emergency Medicine 07/19/22 [place] [address] [place] [address] Assigned PCP 07/30/18 01/18/21 [place] [address] [place] [address] Assigned PCP 01/19/21 03/10/21 Nikki Pierre, SHERMAN Personal Advocate & Liaison (PAL) Family Medicine 03/06/21 03/25/22 [place] [address] [place] [address] Assigned PCP 03/11/21 01/18/22 Amanda Ibrahim MD Assigned Heart and Vascular Provider 04/22/21 05/26/21 Laureen Dye APRN PRINTED CIRCUIT BOARDS PLASMA ETCHER [address] [place] [address] Assigned Heart and Vascular Provider 05/27/21 01/17/23 Franny Shrestha PA-C [address] [place] [address] Physician Relay Adjuster Urology 10/01/21 Franny Shrestha PA-C [address] [place] [address] Assigned Surgical Provider 12/29/21 11/22/22 [place] [address] [place] [address] Assigned PCP 01/19/22 03/08/22 [place] [address] [place] [address] Assigned PCP 03/09/22 03/22/22 [place] [address] [place] [address] Assigned PCP 03/23/22 06/21/22 [place] [address] [place] [address] Family Medicine 08/27/22 [place] [address] [place] [address] Assigned PCP 08/31/22 10/27/23 Aimee Mascorro MD [facility] [address] [place] [address] Assigned Surgical Provider 11/23/22 12/20/22 Franny Shrestha PA-C [address] [place] [address] Assigned Surgical Provider 12/21/22 Amanda Ibrahim MD Assigned Heart and Vascular Provider 01/18/23 01/26/24 [facility] [address] [place] [address] Assigned PCP 10/28/23 documented as of this encounter
--- OUTSIDE RECORDS SUMMARY | 2024-04-08 16:30 | XMS_ITS | Encounter Summary ---
Author Organization [place] Address [address] [place] [address] Care Team Providers Care Extrusion Press Operator Name Role Phone No Ref-Primary, Physician Primary Care Provider Bryon Bell MD Unavailable [phone] Anyi Broderick MD Unavailable Nikki Pierre RN Unavailable Unavailable Bryon Bell MD Primary Care Provider + [phone] Bryon Bell MD Unavailable [phone] Amanda Ibrahim MD Unavailable UnavailLaureen oDe APRN FILTER MACHINE OPERATOR Unavailable [phone] Franny Shrestha PA-C Unavailable [phone] Franny Shrestha PA-C Unavailable [phone] Anyi Broderick MD Unavailable Bryon Bell MD Unavailable [phone] Anyi Broderick MD Unavailable Vitaliy Solo MD Primary Care Provider Bryno Bell MD Unavailable [phone] Anyi Broderick MD Unavailable Aimee Mascorro MD Unavailable [phone] Franny Shrestha PA-C Unavailable [phone] Amanda Ibrahim MD [facility] Unavailabl e [facility] e Reason for Visit * Reason Onset Date Comments MyChart Communication 03/09/2020 Encounter Details Date Type Department Care Team (Late st Contact Info) Description 03/09/2020 MyC Medical Advice [facility] [address] [place] [address] [place] [address] [place] [address] MyChart Communication Social History Tobacco Use Types [...] on filedocumented in this encounter Care Teams Extrusion Press Operator Relationship Specialty Start Date End Date No Ref-Primary, Physician PCP - General 08/14/18 03/05/21 Bryon Bell MD PCP - General Family Medicine 03/06/21 05/05/22 Vitaliy Solo MD [facility] [address] [place] [address] PCP - General Emergency Medicine 07/19/22 [place] [address] [place] [address] Assigned PCP 07/30/18 01/18/21 [place] [address] [place] [address] Assigned PCP 01/19/21 03/10/21 Nikki Pierre, RN Personal Advocate & Liaison (PAL) Family Medicine 03/06/21 03/25/22 [place] [address] [place] [address] Assigned PCP 03/11/21 01/18/22 Amanda Ibrahim MD Assigned Heart and Vascular Provider 04/22/21 05/26/21 Laureen Dye APRN FILTER MACHINE OPERATOR [address] [place] [address] Assigned Heart and Vascular Provider 05/27/21 01/17/23 Franny Shrestha PA-C [address] [place] [address] Physician Forest Economist Urology 10/01/21 Franny Shrestha PA-C [address] [place] [address] Assigned Surgical Provider 12/29/21 11/22/22 [place] [address] [place] [address] Assigned PCP 01/19/22 03/08/22 [place] [address] [place] [address] Assigned PCP 03/09/22 03/22/22 [place] [address] [place] [address] Assigned PCP 03/23/22 06/21/22 [place] [address] [place] [address] Family Medicine 08/27/22 [place] [address] [place] [address] Assigned PCP 08/31/22 10/27/23 Aimee Mascorro MD [facility] [address] [place] [address] Assigned Surgical Provider 11/23/22 12/20/22 Franny Shrestha PA-C [address] [place] [address] Assigned Surgical Provider 12/21/22 Amanda Ibrahim MD Assigned Heart and Vascular Provider 01/18/23 01/26/24 [facility] [address] [place] [address] Assigned PCP 10/28/23 documented as of this encounter
--- OUTSIDE RECORDS SUMMARY | 2024-04-08 16:30 | XMS_ITS | Encounter Summary ---
Author Organization [place] Address [address] [place] [address] Care Team Providers Care Scada Engineer Name Role Phone Anyi Broderick MD Unavailable Nikki Pierre RN Unavailable Unavailable Bryon Bell MD Primary Care Provider + [phone] Bryon Bell MD Unavailable [phone] Amanda Ibrahim MD Unavailable Unavailabl [facility] Unavailable [phone] Franny Shrestha PA-C Unavailable [phone] Franny Shrestha PA-C Unavailable [phone] Anyi Broderick MD Unavailable Bryon Bell MD Unavailable [phone] Anyi Broderick MD Unavailable Vitaliy Solo MD Primary Care Provider Bryon Bell MD Unavailable [phone] Anyi Broderick MD Unavailable Aimee Mascorro MD Unavailable [phone] Franny ShresthaC Unavailable [phone] Amanda Ibrahim MD Un[facility] e Reason for Visit * Reason Onset Date Comments MyChart Communication 03/07/2021 Encounter Details Date Type Department Care Team (Latest Contact Info) Description 03/07/2021 [facility] [address] [place] [phone] Nikki Pierre RN MyChart Communication Social History [...] 9:17 AM CDT Pt LM again on [facility] VM LM for call back Nikki Pierre RN * Telephone Encounter - Nikki Pierre RN - 03/16/2021 7:51 AM CDT Pt LM on [facility] VM at 8:15 pm with [...] on filedocumented in this encounter Care Teams Scada Engineer Relationship Specialty Start Date End Date Bryon Bell MD PCP - General Family Medicine 03/06/21 05/05/22 Vitaliy Solo MD [address] [address] PCP - General Emergency Medicine 07/19/22 [place] [address] [place] [address] Assigned PCP 01/19/21 03/10/21 Nikki Pierre RN Personal Advocate & Liaison (PAL) Family Medicine 03/06/21 03/25/22 [place] [address] [place] [address] Assigned PCP 03/11/21 01/18/22 Amanda Ibrahim MD Assigned Heart and Vascular Provider 04/22/21 05/26/21 Laureen Dye APRN AUDIO PRODUCTION INSTRUCTOR [address] [place] [address] Assigned Heart and Vascular Provider 05/27/21 01/17/23 Franny Shrestha PA-C [address] [place] [address] Physician Banking Services Clerk Urology 10/01/21 Franny Shrestha PA-C [address] [place] [address] Assigned Surgical Provider 12/29/21 11/22/22 [place] [address] [place] [address] Assigned PCP 01/19/22 03/08/22 [place] [address] [place] [address] Assigned PCP 03/09/22 03/22/22 [place] [address] [address] [place] [address] Assigned PCP 03/23/22 06/21/22 [place] [address] [place] [address] Family Medicine 08/27/22 [place] [address] [address] [place] [address] Assigned PCP 08/31/22 10/27/23 Aimee Mascorro MD [facility] [address] [place] [address] Assigned Surgical Provider 11/23/22 12/20/22 Franny Shrestha PA-C [address] [place] [address] Assigned Surgical Provider 12/21/22 Amanda Ibrahim MD Assigned Heart and Vascular Provider 01/18/23 01/26/24 [facility] [address] [place] [address] Assigned PCP 10/28/23 documented as of this encounter
== END 2024-04-08 16:26 | disposition home or self-care (01) ==
LOC: NFLDREF 16:26
PROVIDERS: PCP Internal Medicine; Visit Provider Internal Medicine
DX: R42 Dizziness and giddiness (principal)
CPT/HCPCS: 80048; 87086

== ENCOUNTER 2024-05-20 15:10 | Emergency (ER) | payer MEDICARE, BC, SELFPAY ==
[2024-05-20 15:14] VITALS: BP 180/91; PULSE 69; RESP 18; TEMP 37.2; O2SAT 99; BMI 25.4
--- NOTE | 2024-05-20 16:44 | CRLHL7_ITS ---
For Patients: As a result of the Century Cures Act, medical imaging exams and procedure reports are released immediately into your electronic medical record. You may view this report before your referring provider. If you have questions, please contact your health care provider. INDICATION: Pain and swelling TECHNIQUE: Ultrasound venous duplex lower right extremity. Compression venous exam was performed using mann-scale, color Doppler, and spectral Doppler imaging. COMPARISON: None FINDINGS: Sonographic imaging demonstrates the right common femoral, deep femoral, superficial femoral, popliteal, posterior tibial and greater saphenous and the contralateral left common femoral veins to be fully compressible with normal color Doppler blood flow. IMPRESSION: No convincing radiographic evidence of deep vein thrombosis within the visualized right lower extremity. Dictated by Lele Singer MD @ 05/20/2024 6:05:20 PM (Electronically Signed)
--- NOTE | 2024-05-20 16:48 | ED_ITS ---
HPI - General Adult General Date Seen: 05/20/24 Chief complaint: Lower Extremity Swelling Stated complaint: Sent by [facility]-swollen feet Time Seen by Provider: 05/20/24 16:28 Source: patient Mode of arrival: ambulatory Limitations: no limitations History of Present Illness HPI narrative: Patient is a 79-year-old male presenting to emergency department for right lower ankle swelling. He has no history of blood clots that he is aware of. States he has been having issues with this ankle swelling for the past few months. Does have a history of paroxysmal AFib and some mild CHF. He has been on and of Lasix for the past 5 months due to this right leg swelling. He states when he is on Lasix the swelling improves but they can make him dizzy he has not taken them for the past 6 months. Has not noticed any swelling left lower extremity. States the most swelling is localized just around the ankle. No associated pain. Denies fevers, chills, weakness, numbness, headache, chest pain, shortness of breath, diarrhea, constipation. Has not had dizziness and lightheadedness since he stopped the Lasix. Spoke to nursing staff at his primary care provider's office about appointment to restart the Lasix but was told to come to the emergency department for the unilateral leg swelling. No other concerns noted. Related Data Home Medications ?Medication ?Instructions ?Recorded ?Confirmed CALCIUM+D CHEW 2 tab PO DAILY 06/15/23 04/08/24 Chewable Vitamin C 3 tab PO DAILY 06/15/23 04/08/24 Previous Rx's ?Medication ?Instructions ?Recorded amiodarone 200 mg tablet 200 mg PO QDAY #90 tabs 08/15/23 metoprolol succinate 50 mg 50 mg PO DAILY #90 tabs 08/15/23 tablet,extended release 24 hr apixaban 5 mg tablet (Eliquis) 5 mg PO BID #60 tabs 08/25/23 lisinopril 40 mg tablet 40 mg PO DAILY #90 tabs 11/24/23 Allergies Allergy/AdvReac Type Severity Reaction Status Date / Time No Known Drug Allergies Allergy Verified 05/20/24 15:21 Review of Systems Status of ROS: Reports: 10 or more systems reviewed and unremarkable except as noted in History and below [facility] Medical History Dizziness ?R42 - Dizziness and giddiness (ICD-10) Swelling ?R60.9 - Edema, unspecified (ICD-10) Weakness ?R53.1 - Weakness (ICD-10) Brain mass ?G93.89 - Other specified disorders of brain (ICD-10) Nausea ?R11.0 - Nausea (ICD-10) Chronic neck and back pain ?M54.2 - Cervicalgia (ICD-10) ?M54.9 - Dorsalgia, unspecified (ICD-10) ?G89.29 - Other chronic pain (ICD-10) Neck Pain ?M54.2 - Cervicalgia (ICD-10) Lyme disease ?A69.20 - Lyme disease, unspecified (ICD-10) Sciatica ?M54.30 - Sciatica, unspecified side (ICD-10) Prediabetes ?R73.03 - Prediabetes (ICD-10) Ascending aorta dilation ?I77.810 - Thoracic aortic ectasia (ICD-10) Cardiomyopathy ?I42.9 - Cardiomyopathy, unspecified (ICD-10) Prostate enlargement ?N40.0 - Benign prostatic hyperplasia without lower urinary tract symptoms (ICD-10) Adrenal abnormality (09/21/21) ?E27.9 - Disorder of adrenal gland, unspecified (ICD-10) History of nephrolithiasis ?Z87.442 - Personal history of urinary calculi (ICD-10) PAF (paroxysmal atrial fibrillation) ?I48.0 - Paroxysmal atrial fibrillation (ICD-10) Mitral regurgitation ?I34.0 - Nonrheumatic mitral (valve) insufficiency (ICD-10) Memory loss, short term ?R41.3 - Other amnesia (ICD-10) History of elevated prostate specific antigen (PSA) ?Z87.898 - Personal history of other specified conditions (ICD-10) Hypertension ?I10 - Essential (primary) hypertension (ICD-10) Surgical History History of cardioversion ?Z92.89 - Personal history of other medical treatment (ICD-10) History of cataract surgery (2016) ?Z98.49 - Cataract extraction status, unspecified eye (ICD-10) Family History Father Coronary artery disease High cholesterol Mother Diabetes High cholesterol High blood pressure Social History What is your current living situation?: I presently have a place to live Problems where you live: no known problems Problems where you live details: NA In the past 12 months, utilities in danger of being shut off: no In the past 12 mos, have been you worried that your food would run out before you had money to buy more?: never true In the past 12 mos, the food you bought just didn't last and you didn't have money to buy more?: never true Smoking Status: Never smoker How often do you have a drink containing alcohol: 2-3 times a week How many standard drinks containing alcohol do you have on a typical day: 1 or 2 AUDIT-C Alcohol total score: 3 Non-prescribed substance use: denies use Caffeine: No How often does anyone, including family, friends and others, physically hurt you : never How often does anyone, including family, friends and others, insult or talk down to you: never How often does anyone, including family, friends and others, threaten you with harm: never How often does anyone, including family, friends and others, scream or curse at you: never service: Yes Exam Narrative: Exam Narrative: Const: Well-nourished, Well-developed, in no distress Eyes: PERRL, no conjunctival injection, and symmetrical lids HENT: Atraumatic external nose and ears. Moist mucous membranes. Neck: Symmetric, trachea midline, No thyromegaly. CVS: RRR, No murmurs or gallops. Peripheral pulses 2+ and equal in all extremities, very mild swelling noted around the right ankle with no pitting edema RESP: Unlabored respiratory effort. Clear to auscultation bilaterally. GI: Nontender/Nondistended, No rebound or guarding. MSK:Extremities w/o deformity, Normal Active ROM Skin: Warm, Dry. No rashes or lesions. Neuro: Normal Muscle tone, No focal neurological deficits. Psych: Awake, Alert, & Oriented x3. Appropriate mood and affect. Const: Vital Signs, click to edit/add: Vital Signs - 24 hr 05/20/24 15:14 Temperature 99.0 F Pulse Rate [Right Pulse Oximeter] 69 Respiratory Rate 18 Blood Pressure [Ri ght Upper Arm] 180/91 H Pulse Oximetry 99 Oxygen Delivery Me thod Room Air Course Vital Signs Vital signs: Initial Vital Signs Temperature 99.0 F 05/20/24 15:14 Temperature Source Temporal Artery Scan 05/20/24 15:14 Pulse Rate 69 05/20/24 15:14 Pulse Rhythm Regular 05/20/24 15:14 Pulse Strength 3+ Normal 05/20/24 15:14 Respiratory Rate 18 05/20/24 15:14 Blood Pressure 180/91 H 05/20/24 15:14 Blood Pressure Mean 120 H 05/20/24 15:14 Blood Pressure Position Sitting 05/20/24 15:14 Pulse Oximetry 99 05/20/24 15:14 Oxygen Delivery Method Room Air 05/20/24 15:14 Vital Signs Temperature 99.0 F 05/20/24 15:14 Pulse Rate 69 05/20/24 15:14 Respiratory Rate 18 05/20/24 15:14 Blood Pressure 180/91 H 05/20/24 15:14 Pulse Oximetry 99 05/20/24 15:14 Oxygen Delivery Method Room Air 05/20/24 15:14 Temperature 99.0 F 05/20/24 15:14 Pulse Rate 69 05/20/24 15:14 Respiratory Rate 18 05/20/24 15:14 Blood Pressure 180/91 H 05/20/24 15:14 Pulse Oximetry 99 05/20/24 15:14 Oxygen Delivery Method Room Air 05/20/24 15:14 Medical Decision Making MDM Narrative Medical decision making narrative: Patient is an 79-year-old male presenting for unilateral leg swelling. Will do an ultrasound to rule out blood clot. Based on his history this is most likely related to his CHF. Is not having any other symptoms of CHF right now but not believe a full workup is necessary. He is feeling well and the swelling is mild. Ultrasound showed no signs of a DVT. He can follow-up outpatient with his primary care provider about restarting the Lasix. He is agreeable to this plan. Imaging Data Venous US: Radiologist's impression: No convincing radiographic evidence of deep vein thrombosis within the visualized right lower extremity. Dictated by Lele Singer MD @ 05/20/2024 6:05:20 PM Discharge Plan Discharge Clinical Impression: Edema of right lower extremity Instructions: Leg Edema (ED) Additional Instructions: Follow-up with your primary care doctor about restarting your Lasix. Return to emergency department for new or worsening symptoms. Prescriptions: No Action Chewable Vitamin C 3 tab PO DAILY Rx Instructions: 3 CHEWABLE VIT C TABLETS DAILY, DOSE UNKNOW CALCIUM+D CHEW 2 tab PO DAILY Rx Instructions: CALCIUM + D - 2 CHEW TABS DAILY, DOSE UNKNOWN amiodarone 200 mg tablet 200 mg PO QDAY Qty: 90 3RF metoprolol succinate 50 mg tablet extended release 24 hr 50 mg PO DAILY Qty: 90 3RF Eliquis 5 mg tablet 5 mg PO BID Qty: 60 2RF lisinopril 40 mg tablet 40 mg PO DAILY Qty: 90 3RF Follow Up/Referrals: Vitaliy Solo MD [Primary Care Provider] - Stand Alone Forms: [employer] Info Instructions
--- OUTSIDE RECORDS SUMMARY | 2024-05-20 17:02 | XMS_ITS | Encounter Summary ---
Author Organization [facility] Address [address] [place] [address] Care Team Providers Care Clearing Inspector Name Role Phone Nikki Pierre RN Unavailable Unavailable Bryon Bell MD Primary Care Provider Laureen Dye APRN LETTER SORTING MACHINE OPERATOR Unavailable [phone] Franny ShresthaC Unavailable [phone] Franny Shrestha PA-C Unavailable [phone] Anyi Broderick MD Unavailable Bryon Bell MD Unavailable Anyi Broderick MD Unavailable Vitaliy Solo MD Primary Care Provider Bryon Bell MD Unavailable [phone] Anyi Broderick MD Unavailable Aimee Mascorro MD Unavailable [phone] Franny Shrestha PA-C Unavailable Amanda Ibrahim MD Unavailable Unavailabl e [facility] Unavailabl e Encounter Details Date Type Department Care Team (Late st Contact Info) Description 02/06/2022 [facility] Medical Advice [facility] [address] [place] [address] Page, Nikki M, RN Social History Tobacco Use Types Packs/Day Years Used Date Smoking Tobacco: Never Smokeless Tobacco: Never Alcohol Use Standard Drinks/Week Comments Yes 0 (1 standard drink = 0.6 oz pur e alcohol) occ PHQ-2 Answer Date Recorded PHQ-2 Score 0 12/24/2021 Sex and Gender Information Value Date Recorded Sex Assigned at Male 03/03/2021 2:33 PM CDT 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 GUMMING MACHINE OPERATOR Gender Identity Male 03/03/2021 2:33 PM CDT Sexual Orientation Straight 03/03/2021 2: 33 PM CDT documented as of this encounter Plan of Treatment Not on file documented as of this encounter Visit Diagnoses Not on filedocumented in this encounter Care Teams Clearing Inspector Relationship Specialty Start Date End Date Bryon Bell MD PCP - General Family Medicine 03/06/21 05/05/22 Vitaliy Solo MD [facility] [address] [address] PCP - General Emergency Medicine 07/19/22 Nikki Pierre, RN Personal Advocate & Liaison (PAL) Family Medicine 03/06/21 03/25/22 Laureen Dye APRN LETTER SORTING MACHINE OPERATOR [address] [place] [address] Assigned Heart and Vascular Provider 05/27/21 01/17/23 Franny Shrestha PA-C [address] [place] [address] Physician Rn Birthing Urology 10/01/21 Franny Shrestha PA-C [address] [place] [address] Assigned Surgical Provider 12/29/21 11/22/22 [place] [address] [place] [address] Assigned PCP 01/19/22 03/08/22 [place] [address] [place] [address] Assigned PCP 03/09/22 03/22/22 [place] [address] [place] [address] Assigned PCP 03/23/22 06/21/22 [place] [address] [place] [address] Family Medicine 08/27/22 [place] [address] [place] [address] Assigned PCP 08/31/22 10/27/23 Aimee Mascorro MD [facility] [address], [address] [place] [address] Assigned Surgical Provider 11/23/22 12/20/22 Franny Shrestha PA-C [address] [place] [address] Assigned Surgical Provider 12/21/22 Amanda Ibrahim MD Assigned Heart and Vascular Provider 01/18/23 01/26/24 Clinic - [facility] [address] [place] [address] Assigned PCP 10/28/23 documented as of this encounter
--- OUTSIDE RECORDS SUMMARY | 2024-05-20 17:02 | XMS_ITS | Encounter Summary ---
Author Organization [facility] Address [address] [place] [address] Care Team Providers Care Diet Counselor Name Role Phone Laureen Dye APRN AT RISK SPECIALIST Unavailable [phone] Franny Shrestha PA-C Unavailable [phone] Franny Shrestha PA-C Unavailable Vitaliy Solo MD Primary Care Provider Bryon Bell MD Unavailable Anyi Broderick MD Unavailable Aimee Mascorro MD Unavailable [phone] Franny Shrestha PA-C Unavailable Amanda Ibrahim MD Unavailable Unavailabl e [facility] Unavailabl e Encounter Details Date Type Department Care Team (Late st Contact Info) Description 08/09/2022 MyC Medical Advice [facility] [address] [place] [address] Josie Rosa, RN Social History [...] PM CDT 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 MENTAL HEALTH SOCIAL WORKER Gender Identity Male 03/03/2021 2:33 PM CDT Sexual Orientation Straight 03/03/2021 2: 33 PM CDT COVID-19 Exposure Response Date Recorded In the last 10 days, have yo u been in contact with someone who was confirmed or suspected to have Coronavirus/COVID-19? No / Unsure 08/01/2022 11:05 AM MENTAL HEALTH SOCIAL WORKER documented as of this encounter Plan of Treatment Not on file documented as of this encounter Visit Diagnoses Not on filedocumented in this encounter Care Teams Diet Counselor Relationship Specialty Start Date End Date Vitaliy Solo MD [facility] [address] [place] [address] PCP - General Emergency Medicine 07/19/22 Laureen Dye, BASEBALL GLOVE SHAPER AT RISK SPECIALIST [address] [place] [address] Assigned Heart and Vascular Provider 05/27/21 01/17/23 Franny Shrestha PA-C [address] [place] [address] Physician Feeder Catcher Urology 10/01/21 Franny Shrestha PA-C [address] [place] [address] Assigned Surgical Provider 12/29/21 11/22/22 [place] [address] [place] [address] Family Medicine 08/27/22 [place] [address] [place] [address] Assigned PCP 08/31/22 10/27/23 Aimee Mascorro MD [facility] [address], [address] [place] [address] Assigned Surgical Provider 11/23/22 12/20/22 Franny Shrestha PA-C [address] [place] [address] Assigned Surgical Provider 12/21/22 Amanda Ibrahim MD Assigned Heart and Vascular Provider 01/18/23 01/26/24 [facility] [address] [place] [address] Assigned PCP 10/28/23 documented as of this encounter
--- OUTSIDE RECORDS SUMMARY | 2024-05-20 17:02 | XMS_ITS | Encounter Summary ---
Author Organization [facility] Address [address] [place] [address] Care Team Providers Care Knowledge Engineer Name Role Phone Page, Nikki Vega RN Unavailable Unavailable Bryon Bell MD Primary Care Provider [phone] Bryon Bell MD Unavailable [phone] Laureen Dye APRN LEATHER SKINNER Unavailable [phone] Franny Shrestha PA-C Unavailable [phone] Franny Shrestha PA-C Unavailable Anyi Broderick MD Unavailable Bryon Bell MD Unavailable [phone] Anyi Broderick MD Unavailable Vitaliy Solo MD Primary Care Provider Bryon Bell MD Unavailable [phone] Anyi Broderick MD Unavailable Aimee Mascorro MD Unavailable [phone] Franny Shrestha PA-C Unavailable [phone] Amanda Ibrahim MD Un[facility] Unavailabl e Reason for Visit * Reason Onset Date Comments Outreach 10/10/2021 PAL Encounter Details Date Type Department Care Team (Late st Contact Info) Description 10/10/2021 MyC Medical [facility] [address] [place] [phone] [place] [address] [place] [address] Outreach (PAL) Social History Tobacco Use Types Packs/Day Years Used Date Smoking Tobacco: Never Smokeless Tobacco: Never Alcohol Use Standard Drinks/Week Comments Yes 0 (1 standard drink = 0.6 oz pur e alcohol) occ PHQ-2 Answer Date Recorded PHQ-2 Score 0 09/06/2021 Sex and Gender Information Value Date Recorded Sex Assigned at Male 03/03/2021 2:33 PM CDT 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 Gender Identity Male 03/03/2021 2:33 PM CDT [...] on filedocumented in this encounter Care Teams Knowledge Engineer Relationship Specialty Start Date End Date Bryon Bell MD PCP - General Family Medicine 03/06/21 05/05/22 Vitaliy Solo MD [facility] [address] [place] [address] PCP - General Emergency Medicine 07/19/22 Nikki Pierre, SHERMAN Personal Advocate & Liaison (PAL) Family Medicine 03/06/21 03/25/22 [place] [address] [place] [address] Assigned PCP 03/11/21 01/18/22 Hardik Laureen Madalyn CREDIT CONTROL MANAGER LEATHER SKINNER [address] [place] [address] Assigned Heart and Vascular Provider 05/27/21 01/17/23 Franny Shrestha PA-C [address] [place] [address] Physician Respiratory Assistant Urology 10/01/21 Franny Shrestha PA-C [address] [place] [address] Assigned Surgical Provider 12/29/21 11/22/22 [place] [address] [place] [address] Assigned PCP 01/19/22 03/08/22 [place] [address] [place] [address] Assigned PCP 03/09/22 03/22/22 [place] [address] [place] [address] Assigned PCP 03/23/22 06/21/22 [place] [address] [place] [address] Family Medicine 08/27/22 [place] [address] [place] [address] Assigned PCP 08/31/22 10/27/23 Aimee Mascorro MD [facility] [address] [place] [address] Assigned Surgical Provider 11/23/22 12/20/22 Franny Shrestha PA-C [address] [place] [address] Assigned Surgical Provider 12/21/22 Amanda Ibrahim MD Assigned Heart and Vascular Provider 01/18/23 01/26/24 [facility] [address] [place] [address] Assigned PCP 10/28/23 documented as of this encounter
--- OUTSIDE RECORDS SUMMARY | 2024-05-20 17:02 | XMS_ITS | Encounter Summary ---
Author Organization [facility] Address [address] [place] [address] Care Team Providers Care Drafter Geophysical Name Role Phone Laureen Dye APRN TIRE BUSTER Unavailable [phone] Franny Shrestha PA-C Unavailable [phone] Franny Shrestha PA-C Unavailable [phone] Vitaliy Solo MD Primary Care Provider Bryon Bell MD Unavailable Anyi Broderick MD Unavailable Aimee Mascorro MD Unavailable [phone] Franny Shrestha PA-C Unavailable [phone] Amanda Ibrahim MD Unavailable Unavailabl e [facility] Unavailabl e Encounter Details Date Type Department Care Team (Late st Contact Info) Description 09/15/2022 MyC Medical Advice [facility] [address] [place] [phone] Amanda Ibrahim MD Social History Tobacco Use Types Packs/Day Years Used Date Smoking Tobacco: Never Smokeless Tobacco: Never Alcohol Use Standard Drinks/Week Comments Yes 0 (1 standard drink = 0.6 oz pur e alcohol) occ PHQ-2 Answer Date Recorded PHQ-2 Score 0 12/24/2021 Sex and Gender Information Value Date Recorded Sex Assigned at Male 03/03/2021 2:33 PM CDT 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 ACCESS NURSE Gender Identity Male 03/03/2021 2:33 PM CDT Sexual Orientation Straight 03/03/2021 2: 33 PM CDT COVID-19 Exposure Response Date Recorded In the last 10 days, have yo u been in contact with someone who was confirmed or suspected to have Coronavirus/COVID-19? Unable to assess 08/27/2022 1:55 PM ACCESS NURSE documented as of this encounter Plan of Treatment Not on file documented as of this encounter Visit Diagnoses Not on filedocumented in this encounter Care Teams Drafter Geophysical Relationship Specialty Start Date End Date Vitaliy Solo MD [facility] [address] [place] [address] PCP - General Emergency Medicine 07/19/22 Laureen Dye, FOLDER INSPECTOR TIRE BUSTER [address] [place] [address] Assigned Heart and Vascular Provider 05/27/21 01/17/23 Franny Shrestha PA-C [address] [place] [address] Physician Cardiopulmonary Technologist Urology 10/01/21 Franny Shrestha PA-C [address] [place] [address] Assigned Surgical Provider 12/29/21 11/22/22 [place] [address] [place] [address] Family Medicine 08/27/22 [place] [address] [place] [address] Assigned PCP 08/31/22 10/27/23 Aimee Mascorro MD [facility] [address], [address] [place] [address] Assigned Surgical Provider 11/23/22 12/20/22 Franny Shrestha PA-C [address] [place] [address] Assigned Surgical Provider 12/21/22 Amanda Ibrahim MD Assigned Heart and Vascular Provider 01/18/23 01/26/24 [facility] [address] [place] [address] Assigned PCP 10/28/23 documented as of this encounter
--- OUTSIDE RECORDS SUMMARY | 2024-05-20 17:02 | XMS_ITS | Encounter Summary ---
Author Organization [facility] Address [address] [place] [address] Care Team Providers Care Camper Assembler Name Role Phone Laureen Dye APRN ARMHOLE PRESSER Unavailable [phone] Franny Shrestha PA-C Unavailable [phone] Franny Shrestha PA-C Unavailable Vitaliy Solo MD Primary Care Provider Bryon Bell MD Unavailable Anyi Broderick MD Unavailable Aimee Mascorro MD Unavailable [phone] Franny Shrestha PA-C Unavailable Amanda Ibrahim MD Unavailable Unavailabl e [facility] Unavailabl e Encounter Details Date Type Department Care Team (Late st Contact Info) Description 10/11/2022 MyC Medical Advice [facility] [address] [place] [phone] Amanda Ibrahim MD Social History Tobacco Use Types Packs/Day Years Used Date Smoking Tobacco: Never Smokeless Tobacco: Never Alcohol Use Standard Drinks/Week Comments Yes 0 (1 standard drink = 0.6 oz pur e alcohol) occ PHQ-2 Answer Date Recorded PHQ-2 Score 0 12/24/2021 Sex and Gender Information Value Date Recorded Sex Assigned at Male 03/03/2021 2:33 PM CDT 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 Gender Identity Male 03/03/2021 2:33 PM CDT Sexual Orientation Straight 03/03/2021 2: 33 PM CDT documented as of this encounter Plan of Treatment Not on file documented as of this encounter Visit Diagnoses Not on filedocumented in this encounter Care Teams Camper Assembler Relationship Specialty Start Date End Date Vitaliy Solo MD [facility] [address] [place] [address] PCP - General Emergency Medicine 07/19/22 Laureen Dye, DIRECTOR COMMUNITY ORGANIZATION ARMHOLE PRESSER [address] [place] [address] Assigned Heart and Vascular Provider 05/27/21 01/17/23 Franny Shrestha PA-C [address] [place] [address] Physician Hospital Sales Representative Urology 10/01/21 Franny Shrestha PA-C [address] [place] [address] Assigned Surgical Provider 12/29/21 11/22/22 [place] [address] [place] [address] Family Medicine 08/27/22 [place] [address] [place] [address] Assigned PCP 08/31/22 10/27/23 Aimee Mascorro MD [facility] [address], [address] [place] [address] Assigned Surgical Provider 11/23/22 12/20/22 Franny Shrestha PA-C [address] [place] [address] Assigned Surgical Provider 12/21/22 Amanda Ibrahim MD Assigned Heart and Vascular Provider 01/18/23 01/26/24 [facility] [address] [place] [address] Assigned PCP 10/28/23 documented as of this encounter
--- OUTSIDE RECORDS SUMMARY | 2024-05-20 17:02 | XMS_ITS | Encounter Summary ---
Author Organization [place] Address [address] [place] [address] Care Team Providers Care Hourly Team Members Name Role Phone Page, Nikki Vega RN Unavailable Unavailable Bryon Bell MD Primary Care Provider [phone] Bryon Bell MD Unavailable [phone] Laureen Dye APRN REDYE HAND Unavailable [phone] Franny Shrestha PA-C Unavailable Franny Shrestha PA-C Unavailable Anyi Broderick MD Unavailable Bryon Bell MD Unavailable [phone] Anyi Broderick MD Unavailable Vitaliy Solo MD Primary Care Provider Bryon Bell MD Unavailable [phone] Anyi Broderick MD Unavailable Aimee Mascorro MD Unavailable [phone] Franny Shrestha PA-C Unavailable [phone] Amanda Ibrahim MD Unavailable [facility] Unavailabl e Encounter Details Date Type Department Care Team (Late st Contact Info) Description 09/27/2021 MyC Medical Advice [facility] [address] [place] [address] [place] [address] [address] [facility] [place] [address] Social History Tobacco Use Types Packs/Day Years Used Date Smoking Tobacco: Never Smokeless Tobacco: Never Alcohol Use Standard Drinks/Week Comments Yes 0 (1 standard drink = 0.6 oz pur e alcohol) occ PHQ-2 Answer Date Recorded PHQ-2 Score 0 09/06/2021 Sex and Gender Information Value Date Recorded Sex Assigned at Male 03/03/2021 2:33 PM CDT 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 MANAGEMENT SPECIALIST Gender Identity Male 03/03/2021 2:33 PM CDT [...] on filedocumented in this encounter Care Teams Hourly Team Members Relationship Specialty Start Date End Date Bryon Bell MD PCP - General Family Medicine 03/06/21 05/05/22 Vitaliy Solo MD [facility] [address] [place] [address] PCP - General Emergency Medicine 07/19/22 Nikki Pierre, SHERMAN Personal Advocate & Liaison (PAL) Family Medicine 03/06/21 03/25/22 [place] [address] [place] [address] Assigned PCP 03/11/21 01/18/22 Laureen Dye APRN REDYE HAND [address] [place] [address] Assigned Heart and Vascular Provider 05/27/21 01/17/23 Franny Shrestha PA-C [address] [place] [address] Physician Doweler Urology 10/01/21 Franny Shrestha PA-C [address] [place] [address] Assigned Surgical Provider 12/29/21 11/22/22 [place] [address] [place] [address] Assigned PCP 01/19/22 03/08/22 [place] [address] [place] [address] Assigned PCP 03/09/22 03/22/22 [place] [address] [place] [address] Assigned PCP 03/23/22 06/21/22 [place] [address] [place] [address] Family Medicine 08/27/22 [place] [address] [place] [address] Assigned PCP 08/31/22 10/27/23 Aimee Mascorro MD [facility] [address] [place] [address] Assigned Surgical Provider 11/23/22 12/20/22 Franny Shrestha PA-C [address] [place] [address] Assigned Surgical Provider 12/21/22 Amanda Ibrahim MD Assigned Heart and Vascular Provider 01/18/23 01/26/24 [facility] [address] [place] [address] Assigned PCP 10/28/23 documented as of this encounter
--- OUTSIDE RECORDS SUMMARY | 2024-05-20 17:02 | XMS_ITS | Clinical Summary ---
Author Organization [facility] Address [address] [place] [address] Care Team Providers Care Enlisted Aircrew/Aerial Observer/Gunner Name Role Phone Franny Shrestha PA-C Unavailable [phone] Vitaliy Solo MD Primary Care Provider Bryon Bell MD Unavailable [phone] Franny Shrestha PA-C Unavailable [phone] [facility] Unavailabl e Allergies No known active allergies Medications * This document contains information received from the source organization and may not represent a complete record from that organization. vitamin D3 (CHOLECALCIFEROL) 50 mcg (2000 units) tablet Take 1 tablet (50 mcg) by mouth daily 100 tablet 03/21/20 21 Active vitamin C (ASCORBIC ACID) 1000 MG TABS Take 1 tablet (1,000 mg) by mouth daily 100 tablet 03/21/20 21 Active zinc gluconate 50 MG tablet Take 1 tablet (50 mg) by mouth daily 100 tablet 03/21/20 21 Active amiodarone (PACERONE) 200 MG tabletIndications: Atrial fibrillation, unspecified type (H) Take 1 tablet (200 mg) by mouth daily 90 tablet 3 07/19/19 23 Active apixaban ANTICOAGULANT (ELIQUIS) 5 MG tabletIndications: Atrial fibrillation, unspecified type (H) Take 1 tablet (5 mg) by mouth 2 times daily 180 tablet 3 07/19/19 23 Active metoprolol succinate ER (TOPROL XL) 50 MG 24 hr tabletIndications: Atrial fibrillation, unspecified type (H) Take 1 tablet (50 mg) by mouth daily 90 tablet 3 07/19/19 23 Active mupirocin (BACTROBAN) 2 % external ointmentIndication s:Postoperative state Apply topically 4 times daily 22 g 1 10/11/19 23 Active sodium chloride (OCEAN) 0.65 % nasal sprayIndications:N srinivasa obstruction [place] 2 sprays in nostril 4 times daily as needed for congestion 60 mL 4 10/18/19 23 Active lisinopril (ZESTRIL) 40 MG tabletIndications: Secondary cardiomyopathy (H) Take 1 tablet (40 mg) by mouth daily Appointment required for further refills 90 tablet 08/08/19 24 Active Active Problems Problem Noted Date Diagnosed [...] PM CDT 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 RESEARCH QUALITY ASSURANCE ANALYST Gender Identity Male 03/03/2021 2:33 PM CDT Sexual Orientation Straight 03/03/2021 2: 33 PM CDT Last Filed Vital Signs Vital Sign Reading Time Taken Comments Blood Pressure 160/85 11/19/2022 2:07 PM CDT Pulse 63 11/19/2022 2:07 PM CDT Temperature 36 ??C (96.8 ??F) 09/06/2021 10:26 AM RESEARCH QUALITY ASSURANCE ANALYST Respiratory Rate 14 09/06/2021 10:26 AM RESEARCH QUALITY ASSURANCE ANALYST Oxygen Saturation 98% 07/19/2022 2:28 PM RESEARCH QUALITY ASSURANCE ANALYST Inhaled Oxygen Concentration - - Weight 88.9 kg (196 lb) 11/19/2022 2:07 PM CDT Height 182.9 cm (6') 11/19/2022 2:07 PM CDT Body Mass Index 26.58 11/19/2022 2:07 PM CDT Plan of Treatment Health Maintenance Due Date Last Done Comments ANNUAL REVIEW OF HM ORDERS 1944 ZOSTER IMMUNIZATION (2 of 3) 06/22/2012 04/27/2012 RSV VACCINE (1 - 1-dose 75+ series) 2019 FALL RISK ASSESSMENT 03/06/2022 03/06/2021, 02/28/2020, 08/21/2018 MEDICARE ANNUAL WELLNESS VISIT 03/06/2022 03/06/2021, 02/28/2020, 08/21/2018 PHQ-2 (once per calendar year) 2023 12/24/2021, 09/06/2021, 08/29/2021, Additional history exists BMP 08/01/2023 08/01/2022, 08/08, 05/10/2021, Additional history exists COVID-19 Vaccine ( season) 2024 02/19/2021, 01/22/2021 INFLUENZA VACCINE (#1) 2024 7, 05/16/2016, 06/06/2015, Additional history exists LIPID 02/27/2025 02/28/2020, 08/07, 08/28/2017, Additional history exists GLUCOSE 08/01/2025 08/01/2022, 08/08, 05/10/2021, Additional history exists ADVANCE CARE PLANNING 03/06/2026 03/06/2021, 020 DTAP/TDAP/TD IMMUNIZATION (3 - Td or Tdap) 07/15/2032 07/15/2022, 2014, 11/17/2001 COLONOSCOPY Discontinued 03/10/2014, 03/10/2014 COLORECTAL CANCER SCREENING Discontinued Pneumococcal Vaccine: 65+ Years Completed 08/21/2018, 06/06/2015, 05/02/2011 TSH W/FREE T4 REFLEX Discontinued 07/19/2022, 09/18/2021, 03/06/2021, Additional history exists CT [...] BASIC METABOLIC PANEL Routine 08/01/2022 11:08 AM RESEARCH QUALITY ASSURANCE ANALYST Atrial fibrillation, unspecified type (H) TSH WITH FREE T4 REFLEX Routine 07/19/2022 1:01 PM RESEARCH QUALITY ASSURANCE ANALYST Atrial fibrillation (H) LIPID REFLEX TO DIRECT LDL PANEL Routine 02/28/2020 11:36 AM CDT Lipid screening COLONOSCOPY - HIM SCAN 03/10/2014 12:00 AM CDT from Last 3 Months or Most Recently Relevant to Health Maintenance Results * (ABNORMAL) Basic metabolic panel (08/01/2022 11:08 AM RESEARCH QUALITY ASSURANCE ANALYST) Sodium 140 136 - 145 mmol/L 08/01/2022 11:43 AM RESEARCH QUALITY ASSURANCE ANALYST [facility] Potassium 4.2 3.4 - 5.3 mmol/L 08/01/2022 11:43 AM RESEARCH QUALITY ASSURANCE ANALYST [facility] Chloride 103 98 - 107 mmol/L 08/01/2022 11:43 AM RESEARCH QUALITY ASSURANCE ANALYST [facility] Carbon Dioxide (CO2) 31(H) 22 - 29 mmol/L 08/01/2022 11:43 AM [facility] Anion Gap 6(L) 7 - 15 mmol/L 08/01/2022 11:43 AM [facility] Urea Nitrogen 20.9 8.0 - 23.0 mg/dL 08/01/2022 11:43 AM [facility] Creatinine 0.92 0.67 - 1.17 mg/dL 08/01/2022 11:43 AM [facility] Calcium 8.9 8.8 - 10.2 mg/dL 08/01/2022 11:43 AM [facility] Glucose 187(H) 70 - 99 mg/dL 08/01/2022 11:43 AM [facility] GFR Estimate 85 >60 mL/min/1.7 3m2 08/01/2022 11:43 AM [facility] Comment:[facility]GFR [facility] CKD-EPI equation. Blood STRUCTURE OF LEFT UPPER LIMB / Unknown Venipuncture / Unknown 08/01/2022 11:08 AM RESEARCH QUALITY ASSURANCE ANALYST 08/01/2022 11:13 AM RESEARCH QUALITY ASSURANCE ANALYST Amanda Ibrahim MD LAB - BLOOD ORDERABLES Christina l Result [facility] [address] (1st floor, no room number) [place] [address], [facility] [phone] * TSH with free T4 reflex (07/19/2022 1:01 PM RESEARCH QUALITY ASSURANCE ANALYST) TSH 1.91 0.30 - 4.20 uIU/mL 07/19/2022 1:44 PM RESEARCH QUALITY ASSURANCE ANALYST [facility] Blood STRUCTURE OF LEFT UPPER LIMB / Unknown Venipuncture / Unknown 07/19/2022 1:01 PM RESEARCH QUALITY ASSURANCE ANALYST 07/19/2022 1:01 PM RESEARCH QUALITY ASSURANCE ANALYST Amanda Ibrahim MD LAB - BLOOD ORDERABLES Christina l Result [facility] [address] [employer] Lab (1st floor, no room number) [place] [address], [facility] [phone] * (ABNORMAL) Lipid panel reflex to direct LDL Fasting (02/28/2020 11:36 AM CDT) Cholesterol 188 <200 mg/dL 02/29/2020 8:55 AM CDT [facility] Triglycerides 67 <150 mg/dL 02/29/2020 8:57 AM CDT [facility] Comment:Fasting specimen HDL Cholesterol 69 >39 mg/dL 0 8:55 AM CDT [facility] LDL Cholesterol Calculated 106(H) <100 mg/dL 02/29/2020 8:57 AM CDT [facility] Comment: Above desirable: ??100-129 mg/dl Borderline High: ??130-159 mg/dL High: ? 160-189 mg/dL Very high: ? >189 mg/dl Non HDL Cholesterol 119 <130 mg/dL 02/29/2020 8:55 AM CDT [facility] Blood specimen (specimen) 02/28/2020 11:36 AM CDT 02/28/2020 11:37 AM CDT us Bryon Bell MD LAB - BLOOD ORDERABLES Final Result [facility] [address] [place] [address] * COLONOSCOPY - HIM SCAN (03/10/2014 12:00 AM CDT) 03/10/2014 us Provider Outside PROCEDURES Final Result from Last 3 Months or Most Recently Relevant to Health Maintenance Insurance BCBS [place] MEDICARE [facility] MEDICARE [facility] [place] Care Teams Enlisted Aircrew/Aerial Observer/Gunner Relationship Specialty Start Date End Date Vitaliy Solo MD [facility] [address] [place] [address] PCP - General Emergency Medicine 07/19/22 Franny Shrestha PA-C [address] [place] [address] Physician Architecture Internship Urology 10/01/21 [place] [address] [place] [address] Family Medicine 08/27/22 Franny Shrestha PA-C [address] [place] [address] Assigned Surgical Provider 12/21/22 [facility] [address] [place] [address] Assigned PCP 10/28/23
--- OUTSIDE RECORDS SUMMARY | 2024-05-20 17:02 | XMS_ITS | Encounter Summary ---
Author Organization [place] Address [address] [place] [address] Care Team Providers Care Hotel Or Motel Room Service Supervisor Name Role Phone Page, Nikki Vega RN Unavailable Unavailable Bryon Bell MD Primary Care Provider [phone] Bryon Bell MD Unavailable [phone] Laureen Dye APRN ARCHIVIST MILITARY HISTORY Unavailable [phone] Franny Shrestha PA-C Unavailable Franny Shrestha PA-C Unavailable Anyi Broderick MD Unavailable Bryon Bell MD Unavailable [phone] Anyi Broderick MD Unavailable Vitaliy Solo MD Primary Care Provider Bryon Bell MD Unavailable [phone] Anyi Broderick MD Unavailable Aimee Mascorro MD Unavailable [phone] Franny Shrestha PA-C Unavailable Amanda Ibrahim MD Unavailable [facility] Unavailabl e Reason for Visit * Reason Onset Date Comments MyChart Communication 10/01/2021 KRAIG daley ch - results Encounter Details Date Type Department Care Team (Latest Contact Info) Description 10/01/2021 MyC Medical Advice [facility] [address] [place] [phone] Nikki Pierre RN MyChart Communication (PAL outreach [...] PM CDT 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 SUPERVISOR PLATE FORMING Gender Identity Male 03/03/2021 2:33 PM CDT [...] reach attempts have been made. Letter sent- [facility] will monitor for f/u Nikki Pierre RN * Telephone Encounter - Nikki Pierre RN - 10/05/2021 12:18 PM CDT LM for call back - See below Nikki Pierre RN documented in this encounter Plan of Treatment Not on file documented as of this encounter Visit Diagnoses Not on filedocumented in this encounter Care Teams Hotel Or Motel Room Service Supervisor Relationship Specialty Start Date End Date Bryon Bell MD PCP - General Family Medicine 03/06/21 05/05/[address] [facility] [address] [place] [address] PCP - General Emergency Medicine 07/19/22 Nikki Pierre, RN Personal Advocate & Liaison (PAL) Family Medicine 03/06/21 03/25/22 [place] [address] [place] [address] Assigned PCP 03/11/21 01/18/22 Laureen Dye APRN ARCHIVIST MILITARY HISTORY [address] [place] [address] Assigned Heart and Vascular Provider 05/27/21 01/17/23 Franny Shrestha PA-C [address] [place] [address] Physician Business Banking Relationship Manager Urology 10/01/21 Franny Shrestha PA-C [address] [place] [address] Assigned Surgical Provider 12/29/21 11/22/22 [place] [address] [place] [address] Assigned PCP 01/19/22 03/08/22 [place] [address] [place] [address] Assigned PCP 03/09/22 03/22/22 [place] [address] [place] [address] Assigned PCP 03/23/22 06/21/22 [place] [address] [place] [address] Family Medicine 08/27/22 [place] [address] [place] [address] Assigned PCP 08/31/22 10/27/23 Aimee Mascorro MD [facility] [address], [address] [place] [address] Assigned Surgical Provider 11/23/22 12/20/22 Franny Shrestha PA-C [address] [place] [address] Assigned Surgical Provider 12/21/22 Amanda Ibrahim MD Assigned Heart and Vascular Provider 01/18/23 01/26/24 [facility] [address] [address] Assigned PCP 10/28/23 documented as of this encounter
--- OUTSIDE RECORDS SUMMARY | 2024-05-20 17:02 | XMS_ITS | Encounter Summary ---
Author Organization [facility] Address [address] [place] [address] Care Team Providers Care Forms Designer Name Role Phone Laureen Dye APRN GOLF COURSE PATROLLER Unavailable [phone] Franny Shrestha PA-C Unavailable Franny Shrestha PA-C Unavailable Vitaliy Solo MD Primary Care Provider Bryon Bell MD Unavailable Anyi Broderick MD Unavailable Aimee Mascorro MD Unavailable [phone] Franny Shrestha PA-C Unavailable Amanda Ibrahim MD Unavailable Unavailabl e [facility] Unavailabl e Encounter Details Date Type Department Care Team (Late st Contact Info) Description 10/07/2022 MyC Medical Advice [facility] [address] [place] [address] Amanda Ibrahim MD Social History [...] PM CDT 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 DISPLAY DESIGNER Gender Identity Male 03/03/2021 2:33 PM CDT Sexual Orientation Straight 03/03/2021 2: 33 PM CDT documented as of this encounter Plan of Treatment Not on file documented as of this encounter Visit Diagnoses Not on filedocumented in this encounter Care Teams Forms Designer Relationship Specialty Start Date End Date Vitaliy Solo MD [facility] [address] [place] [address] PCP - General Emergency Medicine 07/19/22 Laureen Dye, ASSET PROTECTION MANAGER GOLF COURSE PATROLLER [address] [place] [address] Assigned Heart and Vascular Provider 05/27/21 01/17/23 Franny Shrestha PA-C [address] [place] [address] Physician Blueprint Processor Urology 10/01/21 Franny Shrestha PA-C [address] [place] [address] Assigned Surgical Provider 12/29/21 11/22/22 [place] [address] [place] [address] Family Medicine 08/27/22 [place] [address] [place] [address] Assigned PCP 08/31/22 10/27/23 Aimee Mascorro MD [facility] [address] [place] [address] Assigned Surgical Provider 11/23/22 12/20/22 Franny Shrestha PA-C [address] [place] [address] Assigned Surgical Provider 12/21/22 Amanda Ibrahim MD Assigned Heart and Vascular Provider 01/18/23 01/26/24 [facility] [address] [place] [address] Assigned PCP 10/28/23 documented as of this encounter
--- OUTSIDE RECORDS SUMMARY | 2024-05-20 17:02 | XMS_ITS | Encounter Summary ---
Author Organization [facility] Address [address] [place] [address] Care Team Providers Care Gerontological Nurse Practitioner Name Role Phone Laureen Dye APRN DIRECTOR OF MAINTENANCE Unavailable [phone] Franny Shrestha PA-C Unavailable [phone] Franny Shrestha PA-C Unavailable Vitaliy Solo MD Primary Care Provider Bryon Bell MD Unavailable [phone] Anyi Broderick MD Unavailable Aimee Mascorro MD Unavailable [phone] Franny Shrestha PA-C Unavailable Amanda Ibrahim MD Unavailable Unavailabl e [facility] Unavailabl e Encounter Details Date Type Department Care Team (Late st Contact Info) Description 08/01/2022 MyC Medical Advice [facility] [address] [place] [address] Amanda Ibrahim MD Social History [...] PM CDT 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 No / Unsure 08/01/2022 11:05 AM SLIDE MACHINE TENDER documented as of this encounter Plan of Treatment Not on file documented as of this encounter Visit Diagnoses Not on filedocumented in this encounter Care Teams Gerontological Nurse Practitioner Relationship Specialty Start Date End Date Vitaliy Solo MD [facility] [address] [place] [address] PCP - General Emergency Medicine 07/19/22 Laureen Dye, ETHNOLOGY PROFESSOR DIRECTOR OF MAINTENANCE [address] [place] [address] Assigned Heart and Vascular Provider 05/27/21 01/17/23 Franny Shrestha PA-C [address] [facility] [address] [place] [address] Physician Environmental Lawyer Urology 10/01/21 Franny Shrestha PA-C [address] [facility] [address] [place] [address] Assigned Surgical Provider 12/29/21 11/22/22 [place] [address] [place] [address] Family Medicine 08/27/22 [place] [address] [place] [address] Assigned PCP 08/31/22 10/27/23 Aimee Mascorro MD [facility] [address], [address] [place] [address] Assigned Surgical Provider 11/23/22 12/20/22 Franny Shrestha PA-C [address] [place] [address] Assigned Surgical Provider 12/21/22 Amanda Ibrahim MD Assigned Heart and Vascular Provider 01/18/23 01/26/24 [facility] [address] [place] [address] Assigned PCP 10/28/23 documented as of this encounter
--- OUTSIDE RECORDS SUMMARY | 2024-05-20 17:02 | XMS_ITS | Encounter Summary ---
Author Organization [place] Address [address] [place] [address] Care Team Providers Care Skin Former Name Role Phone Laureen Dye APRN PNEUMATIC TUBE OPERATOR Unavailable [phone] Franny Shrestha PA-C Unavailable [phone] Franny Shrestha PA-C Unavailable Vitaliy Solo MD Primary Care Provider Bryon Bell MD Unavailable [phone] Anyi Broderick MD Unavailable Aimee Mascorro MD Unavailable [phone] Franny Shrestha PA-C Unavailable Amanda Ibrahim MD Unavailable Unavailabl e [facility] Unavailabl e Encounter Details Date Type Department Care Team (Late st Contact Info) Description 11/03/2022 MyC Medical Advice [facility] [address] [place] [address] Amanda Ibrahim MD Social History [...] PM CDT 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 CONSULTANT Gender Identity Male 03/03/2021 2:33 PM CDT [...] on filedocumented in this encounter Care Teams Skin Former Relationship Specialty Start Date End Date Vitaliy Solo MD [facility] [address] [place] [address] PCP - General Emergency Medicine 07/19/22 Laureen Dye, STEAM CONDITIONER OPERATOR PNEUMATIC TUBE OPERATOR [address] [place] [address] Assigned Heart and Vascular Provider 05/27/21 01/17/23 Franny Shrestha PA-C [address] [place] [address] Physician New Car Make Ready Mechanic Urology 10/01/21 Franny Shrestha PA-C [address] [facility] [address] [place] [address] Assigned Surgical Provider 12/29/21 11/22/22 [place] [address] [place] [address] Family Medicine 08/27/22 [place] [address] [place] [address] Assigned PCP 08/31/22 10/27/23 Aimee Mascorro MD [facility] [address] [place] [address] Assigned Surgical Provider 11/23/22 12/20/22 Franny Shrestha PA-C [address] [place] [address] Assigned Surgical Provider 12/21/22 Amanda Ibrahim MD Assigned Heart and Vascular Provider 01/18/23 01/26/24 [facility] [address] [place] [address] Assigned PCP 10/28/23 documented as of this encounter
--- OUTSIDE RECORDS SUMMARY | 2024-05-20 17:02 | XMS_ITS | Continuity of Care Document ---
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 It does not include entries that were removed or entered in error. Problem Status Onset Date Problem Type Date of Resolution Comments Source Hearing loss Active Condition Oct 30, 2018 Entered By: ANNIE SOTOMAYOR Comment: Right ear [facility] Raised prostate specific antigen Active Condition [facility] Tinea cruris Active Condition [facility] Diagnosis: ICD-10-CM Z01.118 Encntr for exam of ears and hearing w oth abnormal findings Active Diagnosis [facility] Encounters Combined list of: 1) Encounters from Department of Veterans Affairs facilities going back up to thelast 18 months. 2) Encounters from the Department of [facility] facilities going back up to 280 months. Location Location Details Encounter Type Encounter Number Reason For Visit Attending Provider ADM Date DC Date Status Disposition Source [place] [facility] Outpatient Encounter [id number] 03/13 [facility] [place] [facility] Outpatient Encounter [id number] 04/16 [facility] [place] [facility] Outpatient Encounter [id number] 04/17 [facility] [place] [facility] Outpatient Encounter [id number] 04/18 [facility] [place] [facility] Outpatient Encounter [id number] 05/01 [facility] [place] [facility] Outpatient Encounter [id number] 05/01 [facility] [place] [facility] Outpatient Encounter [id number] 05/12 [facility] [place] [facility] Outpatient Encounter [id number] 05/12 [place] [facility] [place] [facility] Outpatient Encounter [id number] 10/07 [place] [facility] [place] [facility] Outpatient Encounter [id number] 10/07 [place] [facility] [place] [facility] Outpatient Encounter [id number] 01/05 [place] [facility] [place] [facility] OFF/OP EST NOVEMBER X REQ PHY/QHP [id number] Diagnos is: ICD-10- CM Z01.118 Encntr for exam of ears and hearing w oth abnorma l finding s
CRYSTAL MURRAY AEL F 01/29 [place] [facility] Social History Combined list of available smoking, tobacco, and other social history from Department of Defense and Veterans Affairs facilities. Social History Type Response Date Comment Sourc e Tobacco smoking status [facility] NEVER USED 10/21/2018 [facility] [facility]
--- OUTSIDE RECORDS SUMMARY | 2024-05-20 17:02 | XMS_ITS | Encounter Summary ---
Author Organization [place] Address [address] [place] [address] Care Team Providers Care Electronic Warfare Specialist Name Role Phone Franny Shrestha PA-C Unavailable Vitaliy Solo MD Primary Care Provider Bryon Bell MD Unavailable [phone] Anyi Broderick MD Unavailable Franny Shrestha PA-C Unavailable Amanda Ibrahim MD Unavailable Unavailabl e [facility] Unavailabl e Encounter Details Date Type Department Care Team (Late st Contact Info) Description 09/30/2023 MyC Medical Advice [facility] [address] [place] [id number] Yajaira Cedeño, MARKETING COMMUNICATIONS LEADER Social History Tobacco Use Types Packs/Day Years [...] PM CDT 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 [address] Family Medicine 08/27/22 [place] [address] [place] [address] Assigned PCP 08/31/22 10/27/23 Franny Shrestha PA-C [address] [place] [address] Assigned Surgical Provider 12/21/22 Amanda Ibrahim MD Assigned Heart and Vascular Provider 01/18/23 01/26/24 [facility] [address] [place] [address] Assigned PCP 10/28/23 documented as of this encounter
--- OUTSIDE RECORDS SUMMARY | 2024-05-20 17:02 | XMS_ITS | Encounter Summary ---
Author Organization [facility] Address [address] [place] [address] Care Team Providers Care Program Developer Name Role Phone Page, Nikki Vega RN Unavailable Unavailable Bryon Bell MD Primary Care Provider [phone] Bryon Bell MD Unavailable [phone] Laureen Dye APRN TRANSACTIONAL ATTORNEY Unavailable [phone] Franny Shrestha PA-C Unavailable [phone] Franny Shrestha PA-C Unavailable [phone] Anyi Broderick MD Unavailable Bryon Bell MD Unavailable [phone] Anyi Broderick MD Unavailable Vitaliy Solo MD Primary Care Provider Bryon Bell MD Unavailable [phone] Anyi Broderick MD Unavailable Aimee Mascorro MD Unavailable [phone] Franny Shrestha PA-C Unavailable Amanda Ibrahim MD Unavailable [facility] Unavailabl e Encounter Details Date Type Department Care Team (Late st Contact Info) Description 12/07/2021 [facility] [place] [address] [place] [phone] Franny Shrestha PA-C [address] [place] [address] Social History Tobacco Use Types Packs/Day Years Used Date Smoking Tobacco: Never Smokeless Tobacco: Never Alcohol Use Standard Drinks/Week Comments Yes 0 (1 standard drink = 0.6 oz pur e alcohol) occ PHQ-2 Answer Date Recorded PHQ-2 Score 0 09/06/2021 Sex and Gender Information Value Date Recorded Sex Assigned at Male 03/03/2021 2:33 PM CDT 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 Gender Identity Male 03/03/2021 2:33 PM CDT Sexual Orientation Straight 03/03/2021 2: 33 PM CDT documented as of this encounter Plan of Treatment Not on file documented as of this encounter Visit Diagnoses Not on filedocumented in this encounter Care Teams Program Developer Relationship Specialty Start Date End Date Bryon Bell MD PCP - General Family Medicine 03/06/21 05/05/22 Vitaliy Solo MD [facility] [address] [place] [address] PCP - General Emergency Medicine 07/19/22 Nikki Pierre RN Personal Advocate & Liaison (PAL) Family Medicine 03/06/21 03/25/22 [place] [address] [place] [address] Assigned PCP 03/11/21 01/18/22 Laureen Dye APRN TRANSACTIONAL ATTORNEY [address] [place] [address] Assigned Heart and Vascular Provider 05/27/21 01/17/23 Franny Shrestha PA-C [address] [place] [address] Physician Hand Sole Sewer Urology 10/01/21 Franny Shrestha PA-C [address] [place] [address] Assigned Surgical Provider 12/29/21 11/22/22 [place] [address] [place] [address] Assigned PCP 01/19/22 03/08/22 [place] [address] [place] [address] Assigned PCP 03/09/22 03/22/22 [place] [address] [place] [address] Assigned PCP 03/23/22 06/21/22 [place] [address] [place] [address] Family Medicine 08/27/22 [place] [address] [place] [address] Assigned PCP 08/31/22 10/27/23 Aimee Mascorro MD [facility] [address] [place] [address] Assigned Surgical Provider 11/23/22 12/20/22 Franny Shrestha PA-C [address] [place] [address] Assigned Surgical Provider 12/21/22 Amanda Ibrahim MD Assigned Heart and Vascular Provider 01/18/23 01/26/24 [facility] [address] [place] [address] Assigned PCP 10/28/23 documented as of this encounter
--- OUTSIDE RECORDS SUMMARY | 2024-05-20 17:02 | XMS_ITS | Encounter Summary ---
Author Organization [place] Address [address] [place] [address] Care Team Providers Care Rn Acute Name Role Phone Franny Shrestha PA-C Unavailable [phone] Vitaliy Solo MD Primary Care Provider Bryon Bell MD Unavailable [phone] Franny Shrestha PA-C Unavailable [phone] Amanda Ibrahim MD Unavailable Unavailabl e [facility] Unavailabl e Encounter Details Date Type Department Care Team (Late st Contact Info) Description 11/13/2023 MyC Medical Advice [facility] [address] [place] [phone] Yajaira Cedeño, OUTSOLE ROUNDER Social History Tobacco Use Types Packs/Day Years [...] PM CDT 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 Gender Identity Male 03/03/2021 2:33 PM CDT Sexual Orientation Straight 03/03/2021 2: 33 PM CDT documented as of this encounter Plan of Treatment Not on file documented as of this encounter Visit Diagnoses Not on filedocumented in this encounter Care Teams Rn Acute Relationship Specialty Start Date End Date Vitaliy Solo MD [facility] [address] [place] [address] PCP - General Emergency Medicine 07/19/22 Franny Shrestha PA-C [address] [facility] [address] [place] [address] Physician Manager Switch Urology 10/01/21 [place] [address] [facility] [place] [address] Family Medicine 08/27/22 Franny Shrestha PA-C [address] [facility] [address] [address] [place] [address] Assigned Surgical Provider 12/21/22 Amanda Ibrahim MD Assigned Heart and Vascular Provider 01/18/23 01/26/24 [facility] [id number] [place] [address] Assigned PCP 10/28/23 documented as of this encounter
--- OUTSIDE RECORDS SUMMARY | 2024-05-20 17:02 | XMS_ITS | Referral Summary ---
Author Organization [facility] Address [address] [place] [address] Care Team Providers Care Engineering Technologist Name Role Phone Franny Shrestha PA-C Unavailable [phone] Vitaliy Solo MD Primary Care Provider Bryon Bell MD Unavailable [phone] Franny Shrestha PA-C Unavailable [phone] [facility] Unavailabl e Allergies No known [...] (OCEAN) 0.65 % nasal sprayIndications:N srinivasa obstruction Clayton 2 sprays in nostril 4 times daily [...] PM CDT 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 MEDICAL PARASITOLOGIST Gender Identity Male 03/03/2021 2:33 PM CDT Sexual Orientation Straight 03/03/2021 2: 33 PM CDT Last Filed Vital Signs Vital Sign Reading Time Taken Comments Blood Pressure 160/85 11/19/2022 2:07 PM CDT Pulse 63 11/19/2022 2:07 PM CDT Temperature 36 ??C (96.8 ??F) 09/06/2021 10:26 AM MEDICAL PARASITOLOGIST Respiratory Rate 14 09/06/2021 10:26 AM MEDICAL PARASITOLOGIST Oxygen Saturation 98% 07/19/2022 2:28 PM MEDICAL PARASITOLOGIST Inhaled Oxygen Concentration - - Weight 88.9 kg (196 lb) 11/19/2022 2:07 PM CDT Height 182.9 cm (6') 11/19/2022 2:07 PM CDT Body Mass Index 26.58 11/19/2022 2:07 PM CDT Plan of Treatment Not on file Procedures Procedure Name Priority Date/Time Associated Diagnosis Comments BASIC METABOLIC PANEL Routine 08/01/2022 11:08 AM MEDICAL PARASITOLOGIST Atrial fibrillation, unspecified type (H) TSH WITH FREE T4 REFLEX Routine 07/19/2022 1:01 PM MEDICAL PARASITOLOGIST Atrial fibrillation (H) LIPID REFLEX TO DIRECT LDL PANEL Routine 02/28/2020 11:36 AM CDT Lipid screening COLONOSCOPY - HIM SCAN 03/10/2014 12:00 AM CDT from Last 3 Months or Most Recently Relevant to Health Maintenance Results * (ABNORMAL) Basic metabolic panel (08/01/2022 11:08 AM [facility]) Sodium 140 136 - 145 mmol/L 08/01/2022 11:43 AM [facility] Potassium 4.2 3.4 - 5.3 mmol/L 08/01/2022 11:43 AM [facility] Chloride 103 98 - 107 mmol/L 08/01/2022 11:43 AM [facility] Carbon Dioxide (CO2) 31(H) 22 - 29 mmol/L 08/01/2022 11:43 AM [facility] Anion Gap 6(L) 7 - 15 mmol/L 08/01/2022 11:43 AM [facility] Urea Nitrogen 20.9 8.0 - 23.0 mg/dL 08/01/2022 11:43 AM [facility] Creatinine 0.92 0.67 - 1.17 mg/dL 08/01/2022 11:43 AM [facility] Calcium 8.9 8.8 - 10.2 mg/dL 08/01/2022 11:43 AM [facility] Glucose 187(H) 70 - 99 mg/dL 08/01/2022 11:43 AM [facility] GFR Estimate 85 >60 mL/min/1.7 3m2 08/01/2022 11:43 AM [facility] Comment:eGFR calculated usin g 2020 CKD-EPI equation. Blood STRUCTURE OF LEFT UPPER LIMB / Unknown Venipuncture / Unknown 08/01/2022 11:08 AM MEDICAL PARASITOLOGIST 08/01/2022 11:13 AM MEDICAL PARASITOLOGIST Amanda Ibrahim MD LAB - BLOOD ORDERABLES Christina l Result [facility] [address] (1st floor, no room number) [place] [address], [facility] [[email or web address]] [phone] * TSH with free T4 reflex (07/19/2022 1:01 PM MEDICAL PARASITOLOGIST) TSH 1.91 0.30 - 4.20 uIU/mL 07/19/2022 1:44 PM MEDICAL PARASITOLOGIST LABORATORY Blood STRUCTURE OF LEFT UPPER LIMB / Unknown Venipuncture / Unknown 07/19/2022 1:01 PM MEDICAL PARASITOLOGIST 07/19/2022 1:01 PM MEDICAL PARASITOLOGIST Amanda Ibrahim MD LAB - BLOOD ORDERABLES Christina l Result [facility] [address] (1st floor, no room number) [place] [address], [facility] [[email or web address]] [phone] * (ABNORMAL) Lipid panel reflex to direct [...] MD LAB - BLOOD ORDERABLES Final Result [facility] [address] [place] [address] * COLONOSCOPY - HIM SCAN (03/10/2014 12:00 AM CDT) 03/10/2014 us Provider Outside PROCEDURES Final Result from Last 3 Months or Most Recently Relevant to Health Maintenance Insurance [facility] [place] [employer] MEDICARE [facility] MEDICARE BCBS [place] Care Teams Engineering Technologist Relationship Specialty Start Date End Date Vitaliy Solo MD [facility] [address] [place] [address] PCP - General Emergency Medicine 07/19/22 Franny Shrestha PA-C [address] [facility] [address] [place] [address] Physician Cash Reconciliation Specialist Urology 10/01/21 [place] [address] [place] [address] Family Medicine 08/27/22 Franny Shrestha PA-C [address] [facility] [address] [place] [address] Assigned Surgical Provider 12/21/22 [facility] [address] [place] [address] Assigned PCP 10/28/23
--- OUTSIDE RECORDS SUMMARY | 2024-05-20 17:02 | XMS_ITS | Encounter Summary ---
Author Organization [place] Address [facility] [place] [address] Care Team Providers Care Surgical Clinical Reviewer Name Role Phone Laureen Dye COMBATANT DIVER QUALIFIED CATCHER HELPER Unavailable [phone] Franny Shrestha PA-C Unavailable Franny Shrestha PA-C Unavailable Anyi Broderick MD Unavailable Vitaliy Solo MD Primary Care Provider Bryon Bell MD Unavailable [phone] Anyi Broderick MD Unavailable Aimee Mascorro MD Unavailable [phone] Franny Shrestha PA-C Unavailable Amanda Ibrahim MD Unavailable Unavailabl e [facility] Unavailabl e Encounter Details Date Type Department Care Team (Late st Contact Info) Description 06/20/2022 [facility] [place] [facility] [address] [facility] [address] [place] [address] Laureen Dye, COMBATANT DIVER QUALIFIED CATCHER HELPER [address] [facility] [address] [place], [place] [address] Social History Tobacco Use Types Packs/Day Years Used Date Smoking Tobacco: Never Smokeless Tobacco: Never Alcohol Use Standard Drinks/Week Comments Yes 0 (1 standard drink = 0.6 oz pur e alcohol) occ PHQ-2 Answer Date Recorded PHQ-2 Score 0 12/24/2021 Sex and Gender Information Value Date Recorded Sex Assigned at Male 03/03/2021 2:33 PM CDT 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 ENGINEER Gender Identity Male 03/03/2021 2:33 PM CDT Sexual Orientation Straight 03/03/2021 2: 33 PM CDT documented as of this encounter Plan of Treatment Not on file documented as of this encounter Visit Diagnoses Not on filedocumented in this encounter Care Teams Surgical Clinical Reviewer Relationship Specialty Start Date End Date Vitaliy Solo MD [facility] [address] [place] [address] PCP - General Emergency Medicine 07/19/22 Laureen Dye, COMBATANT DIVER QUALIFIED CATCHER HELPER [address] [place] [address] Assigned Heart and Vascular Provider 05/27/21 01/17/23 Franny Shrestha PA-C [address] [place] [address] Physician Clinic Director Urology 10/01/21 Franny Shrestha PA-C [address] [facility] [address] [place] [address] Assigned Surgical Provider 12/29/21 11/22/22 [place] [address] [place] [address] Assigned PCP 03/23/22 06/21/22 [place] [address] [place] [address] Family Medicine 08/27/22 [place] [address] [address] [place] [address] Assigned PCP 08/31/22 10/27/23 Aimee Mascorro MD [facility] [address] [place] [address] Assigned Surgical Provider 11/23/22 12/20/22 Franny Shrestha PA-C [address] [place] [address] Assigned Surgical Provider 12/21/22 Amanda Ibrahim MD Assigned Heart and Vascular Provider 01/18/23 01/26/24 [facility] [address] [address] [place] [address] Assigned PCP 10/28/23 documented as of this encounter
--- OUTSIDE RECORDS SUMMARY | 2024-05-20 17:02 | XMS_ITS | Encounter Summary ---
Author Organization [facility] Address [address] [place] [address] Care Team Providers Care Analytic Programmer Name Role Phone Franny Shrestha PA-C Unavailable [phone] Vitaliy Solo MD Primary Care Provider Bryon Bell MD Unavailable [phone] Anyi Broderick MD Unavailable Franny Shrestha PA-C Unavailable [phone] Amanda Ibrahim MD Un[facility] Reason for Visit * Reason Onset Date Comments Medication Request 08/08/2023 lisinopril (Z ESTRIL) 40 MG tablet Encounter Details Date Type Department Care Team (Late st Contact Info) Description 08/08/2023 [facility] [address] [address] Amanda Ibrahim MD Medication Request [...] PM CDT 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 Tolbert Pharmacy: [facility] - [address] Date medication is needed: 08/08/23 Pharmacy had not heard back on refill request and the patient is completely out of this prescription Action Taken: Other: cardiology Travel Screening: Not Applicable Thank you! [facility] ACE SUPPLY BREATHING APPARATUS documented in this encounter Plan of Treatment Not on file documented as of this encounter Visit Diagnoses Not on filedocumented in this encounter Care Teams Analytic Programmer Relationship Specialty Start Date End Date Vitaliy Solo MD [facility] [address] [place] [address] PCP - General Emergency Medicine 07/19/22 Franny Shrestha PA-C [address] [facility] [address] [place] [address] Physician Rn New Grad Urology 10/01/21 [place] [address] [place] [address] Family Medicine 08/27/22 [place] [address] [place] [address] Assigned PCP 08/31/22 10/27/23 Franny Shrestha PA-C [address] [place] [address] Assigned Surgical Provider 12/21/22 Amanda Ibrahim MD Assigned Heart and Vascular Provider 01/18/23 01/26/24 [facility] [address] [place] [address] Assigned PCP 10/28/23 documented as of this encounter
--- OUTSIDE RECORDS SUMMARY | 2024-05-20 17:03 | XMS_ITS | Encounter Summary ---
Author Organization [facility] Address [address] [place] [address] Care Team Providers Care Front Desk Manager Name Role Phone No Ref-Primary, Physician Primary Care Provider Bryon Bell MD Unavailable [phone] Bryon Bell MD Unavailable [phone] Anyi Broderick MD Unavailable Nikki Pierre RN Unavailable Unavailable Bryon Bell MD Primary Care Provider + [phone] Bryon Bell MD Unavailable [phone] Amanda Ibrahim MD Unavailable UnavailLaureen Doe APRN QUALITY CONTROL ASSISTANT Unavailable [phone] Franny Shrestha PA-C Unavailable [phone] Franny Shrestha PA-C Unavailable Anyi Broderick MD Unavailable Bryon Bell MD Unavailable Anyi Broderick MD Unavailable Vitaliy Solo MD Primary Care Provider Bryon Bell MD Unavailable [phone] Anyi Broderick MD Unavailable Aimee Mascorro MD Unavailable [phone] Franny Shrestha PA-C Unavailable Amanda Ibrahim MD Unavailable Unavailabl e [facility] Encounter Details Date Type Department Care Team (Late st Contact Info) Description 08/28/2018 MyC Medical Advice [facility] [address] [place] [phone] [place] [address] [place] [address] Social History Tobacco Use Types Packs/Day Years Used Date Smoking Tobacco: Former Smokeless Tobacco: Never Alcohol Use Standard Drinks/Week Comments Yes 0 (1 standard drink = 0.6 oz pur e alcohol) PHQ-2 Answer Date Recorded PHQ-2 Score 0 08/21/2018 Sex and Gender Information Value Date Recorded Sex Assigned at Male 03/03/2021 2:33 PM CDT 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 Gender Identity Male 03/03/2021 2:33 PM CDT Sexual Orientation Straight 03/03/2021 2: 33 PM CDT documented as of this encounter Plan of Treatment Not on file documented as of this encounter Visit Diagnoses Not on filedocumented in this encounter Care Teams Front Desk Manager Relationship Specialty Start Date End Date No Ref-Primary, Physician PCP - General 08/14/18 03/05/21 [place] [address] [place] [address] PCP - Assigned PCP 07/30/18 09/08/18 Bryon Bell MD PCP - General Family Medicine 03/06/21 05/05/22 Vitaliy Solo MD [facility] [place] [address] [place] [address] PCP - General Emergency Medicine 07/19/22 [place] [address] [place] [address] Assigned PCP 07/30/18 01/18/21 [place] [address] [place] [address] Assigned PCP 01/19/21 03/10/21 Nikki Pierre RN Personal Advocate & Liaison (PAL) Family Medicine 03/06/21 03/25/22 [place] [address] [place] [address] Assigned PCP 03/11/21 01/18/22 Amanda Ibrahim MD Assigned Heart and Vascular Provider 04/22/21 05/26/21 Laureen Dye APRN QUALITY CONTROL ASSISTANT [address] [place] [address] Assigned Heart and Vascular Provider 05/27/21 01/17/23 Franny Shrestha PA-C [address] [place] [address] Physician Interactive Designer Urology 10/01/21 Franny Shrestha PA-C [address] [place] [address] Assigned Surgical Provider 12/29/21 11/22/22 [place] [address] [place] [address] Assigned PCP 01/19/22 03/08/22 [place] [address] [place] [address] Assigned PCP 03/09/22 03/22/22 [place] [address] [place] [address] Assigned PCP 03/23/22 06/21/22 [place] [address] [place] [address] Family Medicine 08/27/22 [place] [address] [place] [address] Assigned PCP 08/31/22 10/27/23 Aimee Mascorro MD [facility] [address] [place] [address] Assigned Surgical Provider 11/23/22 12/20/22 Franny Shrestha PA-C [address] [place] [address] Assigned Surgical Provider 12/21/22 Amanda Ibrahim MD Assigned Heart and Vascular Provider 01/18/23 01/26/24 [facility] [address] [place] [address] Assigned PCP 10/28/23 documented as of this encounter
--- OUTSIDE RECORDS SUMMARY | 2024-05-20 17:03 | XMS_ITS | Encounter Summary ---
Author Organization [facility] Address [address] [place] [address] Care Team Providers Care Business Sales Consultant Name Role Phone Page, Nikki Vega RN Unavailable Unavailable Bryon Bell MD Primary Care Provider + [phone] Bryon Bell MD Unavailable [phone] Amanda Ibrahim MD Unavailable Unavailabl [facility] Unavailable [phone] Franny Shrestha PA-C Unavailable [phone] Franny Shrestha PA-C Unavailable [phone] Anyi Broderick MD Unavailable Bryon Bell MD Unavailable [phone] Anyi Broderick MD Unavailable Vitaliy Solo MD Primary Care Provider Bryon Bell MD Unavailable [phone] Anyi Broderick MD Unavailable Aimee Mascorro MD Unavailable [phone] Franny Shrestha PA-C Unavailable [phone] Amanda Ibrahim MD Un[facility] e Reason for Visit * Reason Onset Date Comments MyChart Communication 04/09/2021 Encounter Details Date Type Department Care Team (Late st Contact Info) Description 04/09/2021 [facility] [id number] [place] [phone] [place] [address] [address] [place], [place] [phone] MyChart Communication Social History Tobacco Use Types [...] PM CDT 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 Gender Identity Male 03/03/2021 2:33 PM CDT [...] on filedocumented in this encounter Care Teams Business Sales Consultant Relationship Specialty Start Date End Date Bryon Bell MD PCP - General Family Medicine 03/06/21 05/05/22 Vitaliy Solo MD [facility] [address] [place] [address] PCP - General Emergency Medicine 07/19/22 Nikki Pierre RN Personal Advocate & Liaison (PAL) Family Medicine 03/06/21 03/25/22 [place] [address] [place] [address] Assigned PCP 03/11/21 01/18/22 Amanda Ibrahim MD Assigned Heart and Vascular Provider 04/22/21 05/26/21 Hardik Laureen BergmanGUS AIRCRAFT ENGINE MECHANIC SUPERVISOR [address] [place] [address] Assigned Heart and Vascular Provider 05/27/21 01/17/23 Franny Shrestha PA-C [address] [place] [address] Physician Environmental Technical Officer Urology 10/01/21 Franny Shrestha PA-C [address] [place] [address] Assigned Surgical Provider 12/29/21 11/22/22 [place] [address] [place] [address] Assigned PCP 01/19/22 03/08/22 [place] [address] [place] [address] Assigned PCP 03/09/22 03/22/22 [place] [address] [place] [address] Assigned PCP 03/23/22 06/21/22 [place] [address] [place] [address] Family Medicine 08/27/22 [place] [address] [place] [address] Assigned PCP 08/31/22 10/27/23 Aimee Mascorro MD [facility] [address] [place] [address] Assigned Surgical Provider 11/23/22 12/20/22 Franny Shrestha PA-C [address] [place] [address] Assigned Surgical Provider 12/21/22 Amanda Ibrahim MD Assigned Heart and Vascular Provider 01/18/23 01/26/24 [facility] [address] [place] [address] Assigned PCP 10/28/23 documented as of this encounter
--- OUTSIDE RECORDS SUMMARY | 2024-05-20 17:03 | XMS_ITS | Encounter Summary ---
Author Organization [facility] Address [address] [place] [address] Care Team Providers Care Business Solutions Director Name Role Phone Page, Nikki Vega RN Unavailable Unavailable Bryon Bell MD Primary Care Provider + [phone] Bryon Bell MD Unavailable [phone] Amanda Ibrahim MD Unavailable Unavailabl [facility] Unavailable [phone] Franny Shrestha PA-C Unavailable [phone] Franny Shrestha PA-C Unavailable [phone] Anyi Broderick MD Unavailable Bryon Bell MD Unavailable [phone] Anyi Broderick MD Unavailable Vitaliy Solo MD Primary Care Provider Bryon Bell MD Unavailable [phone] Anyi Broderick MD Unavailable Aimee Mascorro MD Unavailable [phone] Franny Shrestha PA-C Unavailable [phone] Amanda Ibrahim MD Unavailable [facility] Unavail[facility] e Reason for Visit * Reason Onset Date Comments MyChart Communication 05/08/2021 Encounter Details Date Type Department Care Team (Late st Contact Info) Description 05/08/2021 [facility] [id number] [place] [phone] [place] [address] [address] [place], [place] [phone] MyChart Communication Social History Tobacco Use Types [...] PM CDT 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 [address] [place] [address] PCP - General Emergency Medicine 07/19/22 Nikki Pierre RN Personal Advocate & Liaison (PAL) Family Medicine 03/06/21 03/25/22 [place] [address] [place] [address] Assigned PCP 03/11/21 01/18/22 Amanda Ibrahim MD Assigned Heart and Vascular Provider 04/22/21 05/26/21 Hardik Laureen BergmanGUS RIGHT OF WAY MAINTENANCE SUPERVISOR [address] [place] [address] Assigned Heart and Vascular Provider 05/27/21 01/17/23 Franny Shrestha PA-C [address] [place] [address] Physician Videotape Sales Representative Urology 10/01/21 Franny Shrestha PA-C [address] [place] [address] Assigned Surgical Provider 12/29/21 11/22/22 [place] [address] [place] [address] Assigned PCP 01/19/22 03/08/22 [place] [address] [place] [address] Assigned PCP 03/09/22 03/22/22 [place] [address] [place] [address] Assigned PCP 03/23/22 06/21/22 [place] [address] [place] [address] Family Medicine 08/27/22 [place] [address] [place] [address] Assigned PCP 08/31/22 10/27/23 Aimee Mascorro MD [facility] [address] [place] [address] Assigned Surgical Provider 11/23/22 12/20/22 Franny Shrestha PA-C [address] [place] [address] Assigned Surgical Provider 12/21/22 Amanda Ibrahim MD Assigned Heart and Vascular Provider 01/18/23 01/26/24 [facility] [address] [place] [address] Assigned PCP 10/28/23 documented as of this encounter
--- OUTSIDE RECORDS SUMMARY | 2024-05-20 17:03 | XMS_ITS | Clinical Summary ---
Author Organization [employer] [facility] Address [place], [place] [address] Care Team Providers Care Rn Forensic Name Role Phone Vitaliy Solo MD Primary Care Provider [phone] Allergies No known active allergies Medications Medication [...] on same day) for age 18+ 1962 Tetanus booster 1964 Zoster (shingles) series for age 50+ (1 of 2) 1994 Pneumococcal series for age 65+ (1 of 1 - PCV) 2009 RSV vaccine for adults or pr egnancy (1 - 1-dose 75+ series) 2019 COVID-19 vaccine series (2023- season) 2024 02/19/2021, 01/22/2021 Influenza for age 65+ 03/07/2024 Advance Directives * Full Code (Latest Code Status on File) Date Activated Date Inactivated Comments 01/23/2013 1:38 AM 01/23/2013 4:48 PM Care Teams Rn Forensic Relationship Specialty Start Date End Date Vitaliy Solo MD [address] [place] [address] PCP - General Internal Medicine 11/10/23
--- OUTSIDE RECORDS SUMMARY | 2024-05-20 17:03 | XMS_ITS | Encounter Summary ---
Author Organization [facility] Address [address] [place] [address] Care Team Providers Care Greek Professor Name Role Phone Page, Nikki Vega RN Unavailable Unavailable Bryon Bell MD Primary Care Provider + [phone] Bryon Bell MD Unavailable [phone] Laureen Dye APRN RESPIRATORY PHYSICIAN Unavailable [phone] Franny Shrestha PA-C Unavailable Franny Shrestha PA-C Unavailable Anyi Broderick MD Unavailable Bryon Bell MD Unavailable [phone] Anyi Broderick MD Unavailable Vitaliy Solo MD Primary Care Provider Bryon Bell MD Unavailable [phone] Anyi Broderick MD Unavailable Aimee Mascorro MD Unavailable [phone] Franny Shrestha PA-C Unavailable [phone] Amanda Ibrahim MD Un[facility] Unavailabl e Reason for Visit * Reason Onset Date Comments Call to schedule test 08/21/2021 orders nee d to be placed Encounter Details Date Type Department Care Team ([facility] st Contact Info) Description 08/21/[address] 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 Gender Identity Male 03/03/2021 2:33 PM CDT Sexual Orientation Straight 03/03/2021 2: 33 PM CDT documented as of this encounter Miscellaneous Notes * Telephone Encounter - [place] - 08/21/2021 3:18 PM CST [facility] Call Center Phone Message May a detailed message be left on voicemail: yes Reason for Call: Appointment Intake Referring Provider Name: Laureen Dye Diagnosis and/or Symptoms: Secondary cardiomyopathy (H) Benign essential hypertension Action Taken: Message routed to: Other: [facility] Travel Screening: Not Applicable Please place orders per dictation so pt can schedule appts RER MARINE TERMINAL documented in this encounter Plan of Treatment Not on file documented as of this encounter Visit Diagnoses Not on filedocumented in this encounter Care Teams Greek Professor Relationship Specialty Start Date End Date Bryon Bell MD PCP - General Family Medicine 03/06/21 05/05/22 Vitaliy Solo MD [facility] [address] [place] [address] PCP - General Emergency Medicine 07/19/22 Nikki Pierre, RN Personal Advocate & Liaison (PAL) Family Medicine 03/06/21 03/25/22 [place] [address] [place] [address] Assigned PCP 03/11/21 01/18/22 Laureen Dye APRN RESPIRATORY PHYSICIAN [address] [place] [address] Assigned Heart and Vascular Provider 05/27/21 01/17/23 Franny Shrestha PA-C [address] [place] [address] Physician Dolphin Trainer Urology 10/01/21 Franny Shrestha PA-C [address] [place] [address] Assigned Surgical Provider 12/29/21 11/22/22 [place] [address] [place] [address] Assigned PCP 01/19/22 03/08/22 [place] [address] [place] [address] Assigned PCP 03/09/22 03/22/22 [place] [address] [place] [address] Assigned PCP 03/23/22 06/21/22 [place] [address] [place] [address] Family Medicine 08/27/22 [place] [address] [place] [address] Assigned PCP 08/31/22 10/27/23 Aimee Mascorro MD [facility] [address] [place] [address] Assigned Surgical Provider 11/23/22 12/20/22 Franny Shrestha PA-C [address] [place] [address] Assigned Surgical Provider 12/21/22 Amanda Ibrahim MD Assigned Heart and Vascular Provider 01/18/23 01/26/24 [facility] [address] [place] [address] Assigned PCP 10/28/23 documented as of this encounter
--- OUTSIDE RECORDS SUMMARY | 2024-05-20 17:03 | XMS_ITS | Encounter Summary ---
Author Organization [facility] Address [address] [place] [address] Care Team Providers Care Slurry Plant Operator Name Role Phone Page, Nikki Vega RN Unavailable Unavailable Bryon Bell MD Primary Care Provider + [phone] Bryon Bell MD Unavailable [phone] Amanda Ibrahim MD Unavailable Unavailabl Laureen Dye APRN [facility] Unavailable [phone] Franny Shrestha PA-C Unavailable [phone] Franny Shrestha PA-C Unavailable [phone] Anyi Broderick MD Unavailable Bryon Bell MD Unavailable [phone] Anyi Broderick MD Unavailable Vitaliy Solo MD Primary Care Provider Bryon Bell MD Unavailable [phone] Anyi Broderick MD Unavailable Aimee Mascorro MD Unavailable [phone] Franny Shrestha PA-C Unavailable [phone] Amanda Ibrahim MD Un[facility] Unavail[facility] e Encounter Details Date Type Department Care Team (Late st Contact Info) Description 05/14/2021 [facility] Medical Advice [facility] Heart [facility] [address] 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 Gender Identity Male 03/03/2021 2:33 PM CDT [...] on filedocumented in this encounter Care Teams Slurry Plant Operator Relationship Specialty Start Date End Date Bryon Bell MD PCP - General Family Medicine 03/06/21 05/05/22 Vitaliy Solo MD [facility] [address] [place] [address] PCP - General Emergency Medicine 07/19/22 Nikki Pierre, RN Personal Advocate & Liaison (PAL) Family Medicine 03/06/21 03/25/22 [place] [address] [place] [address] Assigned PCP 03/11/21 01/18/22 Amanda Ibrahim MD Assigned Heart and Vascular Provider 04/22/21 05/26/21 Hardik Laureen GUS Bergman FOREPART REDUCER [address] [place] [address] Assigned Heart and Vascular Provider 05/27/21 01/17/23 Franny Shrestha PA-C [address] [place] [address] Physician Costumed Character Urology 10/01/21 Franny Shrestha PA-C [address] [place] [address] Assigned Surgical Provider 12/29/21 11/22/22 [place] [address] [place] [address] Assigned PCP 01/19/22 03/08/22 [place] [address] [place] [address] Assigned PCP 03/09/22 03/22/22 [place] [address] [place] [address] Assigned PCP 03/23/22 06/21/22 [place] [address] [place] [address] Family Medicine 08/27/22 [place] [address] [place] [address] Assigned PCP 08/31/22 10/27/23 Aimee Mascorro MD [facility] [address] [place] [address] Assigned Surgical Provider 11/23/22 12/20/22 Franny Shrestha PA-C [address] [place] [address] Assigned Surgical Provider 12/21/22 Amanda Ibrahim MD Assigned Heart and Vascular Provider 01/18/23 01/26/24 [facility] [address] [place] [address] Assigned PCP 10/28/23 documented as of this encounter
--- OUTSIDE RECORDS SUMMARY | 2024-05-20 17:03 | XMS_ITS | Encounter Summary ---
Author Organization [facility] Address [address] [place] [address] Care Team Providers Care Product Test Engineer Name Role Phone Page, Nikki Vega RN Unavailable Unavailable Bryon Bell MD Primary Care Provider [phone] Bryon Bell MD Unavailable [phone] Laureen Dye APRN THICKENER OPERATOR Unavailable [phone] Franny Shrestha PA-C Unavailable Franny Shrestha PA-C Unavailable Anyi Broderick MD Unavailable Bryon Bell MD Unavailable Anyi Broderick MD Unavailable Vitaliy Solo MD Primary Care Provider Bryon Bell MD Unavailable [phone] Anyi Broderick MD Unavailable Aimee Mascorro MD Unavailable [phone] Franny Shrestha PA-C Unavailable Amanda Ibrahim MD Unavailable [facility] Unavailabl e Reason for Visit * Reason Onset Date Comments MyChart Communication 06/06/2021 Encounter Details Date Type Department Care Team (Late st Contact Info) Description 06/06/2021 [facility] Medical Advice [facility] [id number] [place] [phone] [place] [address] [place] [address] MyChart Communication Social History Tobacco Use Types [...] PM CDT 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 No / Unsure 06/08/2021 1:05 PM FOOD WRITER documented as of this encounter Plan of Treatment Not on file documented as of this encounter Visit Diagnoses Not on filedocumented in this encounter Care Teams Product Test Engineer Relationship Specialty Start Date End Date Bryon Bell MD PCP - General Family Medicine 03/06/21 05/05/22 Vitaliy Solo MD [facility] [address] [place] [address] PCP - General Emergency Medicine 07/19/22 Nikki Pierre, SHERMAN Personal Advocate & Liaison (PAL) Family Medicine 03/06/21 03/25/22 [place] [address] [place] [address] Assigned PCP 03/11/21 01/18/22 Laureen Dye APRN THICKENER OPERATOR [address] [place] [address] Assigned Heart and Vascular Provider 05/27/21 01/17/23 Franny Shrestha PA-C [address] [place] [address] Physician Remelt Sugar Boiler Urology 10/01/21 Franny Shrestha PA-C [address] [place] [address] Assigned Surgical Provider 12/29/21 11/22/22 [place] [address] [place] [address] Assigned PCP 01/19/22 03/08/22 [place] [address] [place] [address] Assigned PCP 03/09/22 03/22/22 [place] [address] [place] [address] Assigned PCP 03/23/22 06/21/22 [place] [address] [place] [address] Family Medicine 08/27/22 [place] [address] [place] [address] Assigned PCP 08/31/22 10/27/23 Aimee Mascorro MD [facility] [address] [place] [address] Assigned Surgical Provider 11/23/22 12/20/22 Franny Shrestha PA-C [address] [place] [address] Assigned Surgical Provider 12/21/22 Amanda Ibrahim MD Assigned Heart and Vascular Provider 01/18/23 01/26/24 [facility] [address] [place] [address] Assigned PCP 10/28/23 documented as of this encounter
--- OUTSIDE RECORDS SUMMARY | 2024-05-20 17:03 | XMS_ITS | Encounter Summary ---
Author Organization [facility] Address [address] [place] [address] Care Team Providers Care Email Marketing Intern Name Role Phone No Ref-Primary, Physician Primary Care Provider Bryon Bell MD Unavailable [phone] Anyi Broderick MD Unavailable Nikki Pierre RN Unavailable Unavailable Bryon Bell MD Primary Care Provider + [phone] Bryon Bell MD Unavailable [phone] Amanda Ibrahim MD Unavailable UnavailLaureen Doe APRN, CNP Unavailable [phone] Franny ShresthaC Unavailable [phone] Franny Shrestha PA-C Unavailable [phone] Anyi Broderick MD Unavailable Bryon Bell MD Unavailable [phone] Anyi Broderick MD Unavailable Vitaliy Solo MD Primary Care Provider Bryon Bell MD Unavailable [phone] Anyi Broderick MD Unavailable Aimee Mascorro MD Unavailable [phone] Franny Shrestha PA-C Unavailable [phone] Amanda Ibrahim MD 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 Gender Identity Male 03/03/2021 2:33 PM CDT [...] on filedocumented in this encounter Care Teams Email Marketing Intern Relationship Specialty Start Date End Date No Ref-Primary, Physician PCP - General 08/14/18 03/05/21 Bryon Bell MD PCP - General Family Medicine 03/06/21 05/05/22 Vitaliy Solo MD [facility] [address] [place] [address] PCP - General Emergency Medicine 07/19/22 [place] [address] [place] [address] Assigned PCP 07/30/18 01/18/21 [place] [address] [place] [address] Assigned PCP 01/19/21 03/10/21 Nikki Pierre, RN Personal Advocate & Liaison (PAL) Family Medicine 03/06/21 03/25/22 [place] [address] [place] [address] Assigned PCP 03/11/21 01/18/22 Amanda Ibrahim MD Assigned Heart and Vascular Provider 04/22/21 05/26/21 Laureen Dye APRN CONTRACT TECHNICAL WRITER [address] [place] [address] Assigned Heart and Vascular Provider 05/27/21 01/17/23 Franny Shrestha PA-C [address] [place] [address] Physician Vice President And Portfolio Manager Urology 10/01/21 Franny Shrestha PA-C [address] [place] [address] Assigned Surgical Provider 12/29/21 11/22/22 [place] [address] [place] [address] Assigned PCP 01/19/22 03/08/22 [place] [address] [place] [address] Assigned PCP 03/09/22 03/22/22 [place] [address] [place] [address] Assigned PCP 03/23/22 06/21/22 [place] [address] [place] [address] Family Medicine 08/27/22 [place] [address] [place] [address] Assigned PCP 08/31/22 10/27/23 Aimee Mascorro MD [facility] [address] [place] [address] Assigned Surgical Provider 11/23/22 12/20/22 Franny Shrestha PA-C [address] [place] [address] Assigned Surgical Provider 12/21/22 Amanda Ibrahim MD Assigned Heart and Vascular Provider 01/18/23 01/26/24 [facility] [address] [place] [address] Assigned PCP 10/28/23 documented as of this encounter
--- OUTSIDE RECORDS SUMMARY | 2024-05-20 17:03 | XMS_ITS | Encounter Summary ---
Author Organization [facility] Address [address] [place] [address] Care Team Providers Care Machinist Linotype Name Role Phone No Ref-Primary, Physician Primary Care Provider Bryon Bell MD Unavailable [phone] Bryon Bell MD Unavailable [phone] Anyi Broderick MD Unavailable Nikki Pierre RN Unavailable Unavailable Bryon Bell MD Primary Care Provider + [phone] Bryon Bell MD Unavailable [phone] Amanda Ibrahim MD Unavailable UnavailLaureen Doe APRN CHIEF SPECIALIST LEED Unavailable [phone] Franny Shrestha PA-C Unavailable [phone] Franny Shrestha PA-C Unavailable Anyi Broderick MD Unavailable Bryon Bell MD Unavailable [phone] Anyi Broderick MD Unavailable Vitaliy Solo MD Primary Care Provider Bryon Bell MD Unavailable [phone] Anyi Broderick MD Unavailable Aimee Mascorro MD Unavailable [phone] Franny Shrestha PA-C Unavailable Amanda Ibrahim MD Unavailable Unavailabl e [facility] Encounter Details Date Type Department Care Team (Late st Contact Info) Description 08/26/2018 MyC Medical Advice [facility] [address] [place] [phone] [place] [address] [facility] [place] [place] [address] Social History Tobacco Use Types Packs/Day Years Used Date Smoking Tobacco: Former Smokeless Tobacco: Never Alcohol Use Standard Drinks/Week Comments Yes 0 (1 standard drink = 0.6 oz pur e alcohol) PHQ-2 Answer Date Recorded PHQ-2 Score 0 08/21/2018 Sex and Gender Information Value Date Recorded Sex Assigned at Male 03/03/2021 2:33 PM CDT 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 Gender Identity Male 03/03/2021 2:33 PM CDT Sexual Orientation Straight 03/03/2021 2: 33 PM CDT documented as of this encounter Plan of Treatment Not on file documented as of this encounter Visit Diagnoses Not on filedocumented in this encounter Care Teams Machinist Linotype Relationship Specialty Start Date End Date No Ref-Primary, Physician PCP - General 08/14/18 03/05/21 [place] [address] [place] [address] PCP - Assigned PCP 07/30/18 09/08/18 Bryon Bell MD PCP - General Family Medicine 03/06/21 05/05/22 Vitaliy Solo MD [facility] [address] [place] [address] PCP - General Emergency Medicine 07/19/22 [place] [address] [place] [address] Assigned PCP 07/30/18 01/18/21 [place] [address] [place] [address] Assigned PCP 01/19/21 03/10/21 Nikki Pierre RN Personal Advocate & Liaison (PAL) Family Medicine 03/06/21 03/25/22 [place] [address] [place] [address] Assigned PCP 03/11/21 01/18/22 Amanda Ibrahim MD Assigned Heart and Vascular Provider 04/22/21 05/26/21 Laureen Dye APRN CHIEF SPECIALIST LEED [address] [place] [address] Assigned Heart and Vascular Provider 05/27/21 01/17/23 Franny Shrestha PA-C [address] [place] [address] Physician Medical Laboratory Specialist Urology 10/01/21 Franny Shrestha PA-C [address] [place] [address] Assigned Surgical Provider 12/29/21 11/22/22 [place] [address] [place] [address] Assigned PCP 01/19/22 03/08/22 [place] [address] [place] [address] Assigned PCP 03/09/22 03/22/22 [place] [address] [place] [address] Assigned PCP 03/23/22 06/21/22 [place] [address] [place] [address] Family Medicine 08/27/22 [place] [address] [place] [address] Assigned PCP 08/31/22 10/27/23 Aimee Mascorro MD [facility] [address] [place] [address] Assigned Surgical Provider 11/23/22 12/20/22 Franny Shrestha PA-C [address] [place] [address] Assigned Surgical Provider 12/21/22 Amanda Ibrahim MD Assigned Heart and Vascular Provider 01/18/23 01/26/24 [facility] [address] [place] [address] Assigned PCP 10/28/23 documented as of this encounter
--- OUTSIDE RECORDS SUMMARY | 2024-05-20 17:03 | XMS_ITS | Encounter Summary ---
Author Organization [facility] Address [address] [place] [address] Care Team Providers Care Inside Contractor Sales Name Role Phone Anyi Broderick MD Unavailable Nikki Pierre RN Unavailable Unavailable Bryon Bell MD Primary Care Provider + [phone] Bryon Bell MD Unavailable [phone] Amanda Ibrahim MD Unavailable Unavailabl [facility] Unavailable [phone] Franny Shrestha PA-C Unavailable [phone] Franny Shrestha PA-C Unavailable [phone] Anyi Broderick MD Unavailable Bryon Bell MD Unavailable [phone] Anyi Broderick MD Unavailable Vitaliy Solo MD Primary Care Provider Bryon Bell MD Unavailable [phone] Anyi Broderick MD Unavailable Aimee Mascorro MD Unavailable [phone] Franny Shrestha-C Unavailable [phone] Amanda Ibrahim MD Un[facility] Reason for Visit * Reason Onset Date Comments MyChart Communication 03/07/2021 Encounter Details Date Type Department Care Team (Latest Contact Info) Description 03/07/2021 [facility] [id number] [place] [phone] Nikki Pierre RN MyChart Communication Social [...] PM CDT 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 [...] on filedocumented in this encounter Care Teams Inside Contractor Sales Relationship Specialty Start Date End Date Bryon Bell MD PCP - General Family Medicine 03/06/21 05/05/22 Vitaliy Solo MD [facility] [address] [facility] [place] [address] PCP - General Emergency Medicine 07/19/22 [place] [address] [place] [address] Assigned PCP 01/19/21 03/10/21 Nikki Pierre RN Personal Advocate & Liaison (PAL) Family Medicine 03/06/21 03/25/22 [place] [address] [place] [address] Assigned PCP 03/11/21 01/18/22 Amanda Ibrahim MD Assigned Heart and Vascular Provider 04/22/21 05/26/21 Laureen Dye, SUPERVISOR BUFFING AND PASTING BATTERY CONTAINER TESTER [employer] [address] [place] [address] Assigned Heart and Vascular Provider 05/27/21 01/17/23 Franny Shrestha PA-C [address] [place] [address] Physician Veneer Repairer Machine Urology 10/01/21 Franny Shrestha PA-C [address] [place] [address] Assigned Surgical Provider 12/29/21 11/22/22 [place] [address] [place] [address] Assigned PCP 01/19/22 03/08/22 [place] [address] [place] [address] Assigned PCP 03/09/22 03/22/22 [place] [address] [place] [address] Assigned PCP 03/23/22 06/21/22 [place] [address] [place] [address] Family Medicine 08/27/22 [place] [address] [place] [address] Assigned PCP 08/31/22 10/27/23 Aimee Mascorro MD [facility] [address] [place] [address] Assigned Surgical Provider 11/23/22 12/20/22 Franny Shrestha PA-C [address] [place] [address] Assigned Surgical Provider 12/21/22 Amanda Ibrahim MD Assigned Heart and Vascular Provider 01/18/23 01/26/24 [facility] [address] [place] [address] Assigned PCP 10/28/23 documented as of this encounter
--- OUTSIDE RECORDS SUMMARY | 2024-05-20 17:03 | XMS_ITS | Encounter Summary ---
Author Organization [facility] Address [address] [place] [address] Care Team Providers Care Housing Officer Name Role Phone Page, Nikki Vega RN Unavailable Unavailable Bryon Bell MD Primary Care Provider + [phone] Bryon Bell MD Unavailable [phone] Amanda Ibrahim MD Unavailable Unavailabl Laureen Dye APRN [facility] Unavailable [phone] Franny Shrestha PA-C Unavailable [phone] Franny Shrestha PA-C Unavailable [phone] Anyi Broderick MD Unavailable Bryon Bell MD Unavailable [phone] Anyi Broderick MD Unavailable Vitaliy Solo MD Primary Care Provider Bryon Bell MD Unavailable Anyi Broderick MD Unavailable Aimee Mascorro MD Unavailable Franny Shrestha PA-C Unavailable [phone] Amanda Ibrahim MD Un[facility] Encounter Details Date Type Department Care Team (Late st Contact Info) Description 04/19/2021 [facility] Medical Advice [facility] Heart [facility] [address] [facility] [address] [place] [address] Amanda Ibrahim MD Social History Tobacco [...] PM CDT 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 Gender Identity Male 03/03/2021 2:33 PM CDT [...] on filedocumented in this encounter Care Teams Housing Officer Relationship Specialty Start Date End Date Bryon Bell MD PCP - General Family Medicine 03/06/21 05/05/22 Vitaliy Solo MD [facility] [address] [place] [address] PCP - General Emergency Medicine 07/19/22 Nikki Pierre, RN Personal Advocate & Liaison (PAL) Family Medicine 03/06/21 03/25/22 [place] [address] [place] [address] Assigned PCP 03/11/21 01/18/22 Amanda Ibrahim MD Assigned Heart and Vascular Provider 04/22/21 05/26/21 Hardik Laureen GUS Bergman BENCH ASSEMBLER BATTERY [address] [place] [address] Assigned Heart and Vascular Provider 05/27/21 01/17/23 Franny Shrestha PA-C [address] [place] [address] Physician Truck Safety Inspector Urology 10/01/21 Franny Shrestha PA-C [address] [place] [address] Assigned Surgical Provider 12/29/21 11/22/22 [place] [address] [place] [address] Assigned PCP 01/19/22 03/08/22 [place] [address] [place] [address] Assigned PCP 03/09/22 03/22/22 [place] [address] [place] [address] Assigned PCP 03/23/22 06/21/22 [place] [address] [place] [address] Family Medicine 08/27/22 [place] [address] [place] [address] Assigned PCP 08/31/22 10/27/23 Aimee Mascorro MD [facility] [address] [place] [address] Assigned Surgical Provider 11/23/22 12/20/22 Franny Shrestha PA-C [address] [place] [address] Assigned Surgical Provider 12/21/22 Amanda Ibrahim MD Assigned Heart and Vascular Provider 01/18/23 01/26/24 [facility] [address] [place] [address] Assigned PCP 10/28/23 documented as of this encounter
--- OUTSIDE RECORDS SUMMARY | 2024-05-20 17:03 | XMS_ITS | Encounter Summary ---
Author Organization [facility] Address [address] [place] [address] Care Team Providers Care Cloud Security Architect Name Role Phone Page, Nikki Vega RN Unavailable Unavailable Bryon Bell MD Primary Care Provider + [phone] Bryon Bell MD Unavailable [phone] Laureen Dye APRN SPECIALIST EMPLOYEE LABOR RELATIONS Unavailable [phone] Franny Shrestha PA-C Unavailable Franny Shrestha PA-C Unavailable Anyi Broderick MD Unavailable Bryon Bell MD Unavailable [phone] Anyi Broderick MD Unavailable Vitaliy Solo MD Primary Care Provider Bryon Bell MD Unavailable [phone] Anyi Broderick MD Unavailable Aimee Mascorro MD Unavailable [phone] Franny Shrestha PA-C Unavailable [phone] Amanda Ibrahim MD Unavailable 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 No / Unsure 09/13/2021 3:04 PM BURLAP WORKER documented as of this encounter Plan of Treatment Not on file documented as of this encounter Visit Diagnoses Not on filedocumented in this encounter Care Teams Cloud Security Architect Relationship Specialty Start Date End Date Bryon Bell MD PCP - General Family Medicine 03/06/21 05/05/22 Vitaliy Solo MD [facility] [address] [place] [address] PCP - General Emergency Medicine 07/19/22 Nikki Pierre RN Personal Advocate & Liaison (PAL) Family Medicine 03/06/21 03/25/22 [place] [address] [place] [address] Assigned PCP 03/11/21 01/18/22 Laureen Dye APRN SPECIALIST EMPLOYEE LABOR RELATIONS [address] [place] [address] Assigned Heart and Vascular Provider 05/27/21 01/17/23 Franny Shrestha PA-C [address] [place] [address] Physician Oracle Database Developer Urology 10/01/21 Franny Shrestha PA-C [address] [place] [address] Assigned Surgical Provider 12/29/21 11/22/22 [place] [address] [place] [address] Assigned PCP 01/19/22 03/08/22 [place] [address] [place] [address] Assigned PCP 03/09/22 03/22/22 [place] [address] [place] [address] Assigned PCP 03/23/22 06/21/22 [place] [address] [place] [address] Family Medicine 08/27/22 [place] [address] [place] [address] Assigned PCP 08/31/22 10/27/23 Aimee Mascorro MD [facility] [address] [place] [address] Assigned Surgical Provider 11/23/22 12/20/22 Franny Shrestha PA-C [address] [place] [address] Assigned Surgical Provider 12/21/22 Amanda Ibrahim MD Assigned Heart and Vascular Provider 01/18/23 01/26/24 [facility] [address] [place] [address] Assigned PCP 10/28/23 documented as of this encounter
--- OUTSIDE RECORDS SUMMARY | 2024-05-20 17:03 | XMS_ITS | Encounter Summary ---
Author Organization [facility] Address [address] [place] [address] Care Team Providers Care Cost And Sales Record Supervisor Name Role Phone Page, Nikki Vega RN Unavailable Unavailable Bryon Bell MD Primary Care Provider + [phone] Bryon Bell MD Unavailable [phone] Amanda Ibrahim MD Unavailable Unavailabl Laureen Dye APRN [facility] Unavailable [phone] Franny Shrestha PA-C Unavailable [phone] Franny Shrestha PA-C Unavailable [phone] Anyi Broderick MD Unavailable Bryon Bell MD Unavailable [phone] Anyi Broderick MD Unavailable Vitaliy Solo MD Primary Care Provider Bryon Bell MD Unavailable [phone] Anyi Broderick MD Unavailable Aimee Mascorro MD Unavailable [phone] Franny Shrestha PA-C Unavailable [phone] Amanda Ibrahim MD Un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 Gender Identity Male 03/03/2021 2:33 PM [...] on filedocumented in this encounter Care Teams Cost And Sales Record Supervisor Relationship Specialty Start Date End Date Bryon Bell MD PCP - General Family Medicine 03/06/21 05/05/22 Vitaliy Solo MD [facility] [address] [place] [address] PCP - General Emergency Medicine 07/19/22 Nikki Pierre, RN Personal Advocate & Liaison (PAL) Family Medicine 03/06/21 03/25/22 [place] [address] [place] [address] Assigned PCP 03/11/21 01/18/22 Amanda Ibrahim MD Assigned Heart and Vascular Provider 04/22/21 05/26/21 Hardik Laureen GUS Bergman BOX SPINNER [address] [place] [address] Assigned Heart and Vascular Provider 05/27/21 01/17/23 Franny Shrestha PA-C [address] [place] [address] Physician Welder Tool And Die Urology 10/01/21 Franny Shrestha PA-C [address] [place] [address] Assigned Surgical Provider 12/29/21 11/22/22 [place] [address] [place] [address] Assigned PCP 01/19/22 03/08/22 [place] [address] [place] [address] Assigned PCP 03/09/22 03/22/22 [place] [address] [place] [address] Assigned PCP 03/23/22 06/21/22 [place] [address] [place] [address] Family Medicine 08/27/22 [place] [address] [place] [address] Assigned PCP 08/31/22 10/27/23 Aimee Mascorro MD [facility] [address] [place] [address] Assigned Surgical Provider 11/23/22 12/20/22 Franny Shrestha PA-C [address] [place] [address] Assigned Surgical Provider 12/21/22 Amanda Ibrahim MD Assigned Heart and Vascular Provider 01/18/23 01/26/24 [facility] [address] [place] [address] Assigned PCP 10/28/23 documented as of this encounter
--- OUTSIDE RECORDS SUMMARY | 2024-05-20 17:03 | XMS_ITS | Encounter Summary ---
Author Organization [place] Address [address] [place] [address] Care Team Providers Care Senior Technical Manager Name Role Phone Page, Nikki Vega RN Unavailable Unavailable Bryon Bell MD Primary Care Provider + [phone] Bryon Bell MD Unavailable [phone] Amanda Ibrahim MD Unavailable Unavailabl Laureen Dye APRN [facility] Unavailable [phone] Franny Shrestha PA-C Unavailable [phone] Franny Shrestha PA-C Unavailable [phone] Anyi Broderick MD Unavailable Bryon Bell MD Unavailable [phone] Anyi Broderick MD Unavailable Vitaliy Solo MD Primary Care Provider Bryon Bell MD Unavailable [phone] Anyi Broderick MD Unavailable Aimee Mascorro MD Unavailable [phone] Franny Shrestha PA-C Unavailable [phone] Amanda Ibrahim MD Un[facility] Encounter Details Date Type Department Care Team (Late st Contact Info) Description 04/19/2021 [facility] [place] [facility] [address] [place] [address] Amanda Ibrahim MD Social History Tobacco [...] PM CDT 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 Gender Identity Male 03/03/2021 2:33 PM [...] filedocumented in this encounter Care Teams Senior Technical Manager Relationship Specialty Start Date End Date Bryon Bell MD PCP - General Family Medicine 03/06/21 05/05/22 Vitaliy Solo MD [facility] [address] [place] [address] PCP - General Emergency Medicine 07/19/22 Nikki Pierre, RN Personal Advocate & Liaison (PAL) Family Medicine 03/06/21 03/25/22 [place] [address] [place] [address] Assigned PCP 03/11/21 01/18/22 Amanda Ibrahim MD Assigned Heart and Vascular Provider 04/22/21 05/26/21 Hardik Laureen GUS Bergman SERGER [address] [place] [address] Assigned Heart and Vascular Provider 05/27/21 01/17/23 Franny Shrestha PA-C [address] [place] [address] Physician Financial Services Manager Urology 10/01/21 Franny Shrestha PA-C [address] [place] [address] Assigned Surgical Provider 12/29/21 11/22/22 [place] [address] [place] [address] Assigned PCP 01/19/22 03/08/22 [place] [address] [place] [address] Assigned PCP 03/09/22 03/22/22 [place] [address] [place] [address] Assigned PCP 03/23/22 06/21/22 [place] [address] [place] [address] Family Medicine 08/27/22 [place] [address] [place] [address] Assigned PCP 08/31/22 10/27/23 Aimee Mascorro MD [facility] [address], [address] [place] [address] Assigned Surgical Provider 11/23/22 12/20/22 Franny Shrestha PA-C [address] [place] [address] Assigned Surgical Provider 12/21/22 Amanda Ibrahim MD Assigned Heart and Vascular Provider 01/18/23 01/26/24 [facility] [address] [place] [address] Assigned PCP 10/28/23 documented as of this encounter
--- OUTSIDE RECORDS SUMMARY | 2024-05-20 17:03 | XMS_ITS | Encounter Summary ---
Author Organization [place] Address [address] [place] [address] Care Team Providers Care Integrated Marketing Manager Name Role Phone Page, Nikki Vega RN Unavailable Unavailable Bryon Bell MD Primary Care Provider + [phone] Bryon Bell MD Unavailable [phone] Amanda Ibrahim MD Unavailable Unavailabl [facility]N [employer] Unavailable [phone] Franny Shrestha PA-C Unavailable [phone] Franny Shrestha PA-C Unavailable [phone] Anyi Broderick MD Unavailable Bryon Bell MD Unavailable [phone] Anyi Broderick MD Unavailable Vitaliy Solo MD Primary Care Provider Bryon Bell MD Unavailable [phone] Anyi Broderick MD Unavailable Aimee Mascorro MD Unavailable [phone] Franny Shrestha PA-C Unavailable [phone] Amanda Ibrahim MD Un[facility] e Reason for Visit * Reason Onset Date Comments Outreach 05/14/2021 PAL Encounter Details Date Type Department Care Team (Late st Contact Info) Description 05/14/2021 MyC Medical Advice [facility] [address] [place] [phone] Nikki Pierre RN Outreach ([facility] ) Social History Tobacco Use Types Packs/Day [...] PM CDT 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 BMET Gender Identity Male 03/03/2021 2:33 PM CDT [...] on filedocumented in this encounter Care Teams Integrated Marketing Manager Relationship Specialty Start Date End Date Bryon Bell MD PCP - General Family Medicine 03/06/21 05/05/22 Vitaliy Solo MD [facility] [address] [place] [address] PCP - General Emergency Medicine 07/19/22 Nikki Pierre, SHERMAN Personal Advocate & Liaison (PAL) Family Medicine 03/06/21 03/25/22 [place] [address] [place] [address] Assigned PCP 03/11/21 01/18/22 Amanda Ibrahim MD Assigned Heart and Vascular Provider 04/22/21 05/26/21 Laureen Dye, STRAIGHT SLICING MACHINE OPERATOR RN GYNECOLOGY [address] [place] [address] Assigned Heart and Vascular Provider 05/27/21 01/17/23 Franny Shrestha PA-C [address] [place] [address] Physician Structural Design Engineer Urology 10/01/21 Franny Shrestha PA-C [address] [place] [address] Assigned Surgical Provider 12/29/21 11/22/22 [place] [address] [place] [address] Assigned PCP 01/19/22 03/08/22 [place] [address] [place] [address] Assigned PCP 03/09/22 03/22/22 [place] [address] [place] [address] Assigned PCP 03/23/22 06/21/22 [place] [address] [place] [address] Family Medicine 08/27/22 [place] [address] [place] [address] Assigned PCP 08/31/22 10/27/23 Aimee Mascorro MD [facility] [address], [address] [place] [address] Assigned Surgical Provider 11/23/22 12/20/22 Franny Shrestha PA-C [address] [place] [address] Assigned Surgical Provider 12/21/22 Amanda Ibrahim MD Assigned Heart and Vascular Provider 01/18/23 01/26/24 [facility] [address] [place] [address] Assigned PCP 10/28/23 documented as of this encounter
--- OUTSIDE RECORDS SUMMARY | 2024-05-20 17:03 | XMS_ITS | Encounter Summary ---
Author Organization [place] Address [address] [place] [address] Care Team Providers Care Assistant Manager Quality Management Name Role Phone No Ref-Primary, Physician Primary Care Provider Bryon Bell MD Unavailable [phone] Bryon Bell MD Unavailable [phone] Anyi Broderick MD Unavailable Nikki Pierre RN Unavailable Unavailable Bryon Bell MD Primary Care Provider + [phone] Bryon Bell MD Unavailable [phone] Amanda Ibrahim MD Unavailable UnavailLaureen Doe APRN LAY UP OPERATOR Unavailable [phone] Franny Shrestha PA-C Unavailable [phone] Franny Shrestha PA-C Unavailable Anyi Broderick MD Unavailable Bryon Bell MD Unavailable Anyi Broderick MD Unavailable Vitaliy Solo MD Primary Care Provider Bryon Bell MD Unavailable [phone] Anyi Broderick MD Unavailable Aimee Mascorro MD Unavailable Franny Shrestha PA-C Unavailable [phone] Amanda Ibrahim MD Unavailable Unavailabl e [facility] Encounter Details Date Type Department Care Team (Late st Contact Info) Description 08/21/[address] 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 Gender Identity Male 03/03/2021 2:33 PM CDT Sexual Orientation Straight 03/03/2021 2: 33 PM CDT documented as of this encounter Plan of Treatment Not on file documented as of this encounter Visit Diagnoses Not on filedocumented in this encounter Care Teams Assistant Manager Quality Management Relationship Specialty Start Date End Date No Ref-Primary, Physician PCP - General 08/14/18 03/05/21 [place] [address] [place] [address] PCP - Assigned PCP 07/30/18 09/08/18 Bryon Bell MD PCP - General Family Medicine 03/06/21 05/05/22 Vitaliy Solo MD [facility] [address] [place] [address] PCP - General Emergency Medicine 07/19/22 [place] [address] [place] [address] Assigned PCP 07/30/18 01/18/21 [place] [address] [place] [address] Assigned PCP 01/19/21 03/10/21 Nikki Pierre RN Personal Advocate & Liaison (PAL) Family Medicine 03/06/21 03/25/22 [place] [address] [place] [address] Assigned PCP 03/11/21 01/18/22 Amanda Ibrahim MD Assigned Heart and Vascular Provider 04/22/21 05/26/21 Laureen Dye APRN LAY UP OPERATOR [address] [place] [address] Assigned Heart and Vascular Provider 05/27/21 01/17/23 Franny Shrestha PA-C [address] [place] [address] Physician Hand Fur Cleaner Urology 10/01/21 Franny Shrestha PA-C [address] [place] [address] Assigned Surgical Provider 12/29/21 11/22/22 [place] [address] [place] [address] Assigned PCP 01/19/22 03/08/22 [place] [address] [place] [address] Assigned PCP 03/09/22 03/22/22 [place] [address] [place] [address] Assigned PCP 03/23/22 06/21/22 [place] [address] [place] [address] Family Medicine 08/27/22 [place] [address] [place] [address] Assigned PCP 08/31/22 10/27/[address] [facility] [address] [place] [address] Assigned Surgical Provider 11/23/22 12/20/22 Franny Shrestha PA-C [address] [place] [address] Assigned Surgical Provider 12/21/22 Amanda Ibrahim MD Assigned Heart and Vascular Provider 01/18/23 01/26/24 [facility] [address] [place] [address] Assigned PCP 10/28/23 documented as of this encounter
--- OUTSIDE RECORDS SUMMARY | 2024-05-20 17:03 | XMS_ITS | Encounter Summary ---
Author Organization [place] Address [address] [place] [address] Care Team Providers Care Senior Revenue Accountant Name Role Phone No Ref-Primary, Physician Primary Care Provider Bryon Bell MD Unavailable [phone] Bryon Bell MD Unavailable [phone] Anyi Broderick MD Unavailable Nikki Pierre RN Unavailable Unavailable Bryon Bell MD Primary Care Provider + [phone] Bryon Bell MD Unavailable [phone] Amanda Ibrahim MD Unavailable UnavailLaureen Doe APRN [facility] [employer] Unavailable [phone] Franny Shrestha PA-C Unavailable [phone] Franny Shrestha PA-C Unavailable Anyi Broderick MD Unavailable Bryon Bell MD Unavailable Anyi Broderick MD Unavailable Vitaliy Solo MD Primary Care Provider Bryon Bell MD Unavailable [phone] Anyi Broderick MD Unavailable Aimee Mascorro MD Unavailable Franny Shrestha PA-C Unavailable Amanda Ibrahim MD Unavailable Unavailabl e [facility] Unavailabl e Reason for Visit * Reason Onset Date Comments MyChart Communication 08/26/2018 Encounter Details Date Type Department Care Team (Late st Contact Info) Description 08/26/2018 MyC Medical Advice [facility] [address] [place] [address] [place] [address] [place] [address] MyChart Communication Social History Tobacco Use Types Packs/Day Years Used Date Smoking Tobacco: Former Smokeless Tobacco: Never Alcohol Use Standard Drinks/Week Comments Yes 0 (1 standard drink = 0.6 oz pur e alcohol) PHQ-2 Answer Date Recorded PHQ-2 Score 0 08/21/2018 Sex and Gender Information Value Date Recorded Sex Assigned at Male 03/03/2021 2:33 PM CDT 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 Gender Identity Male 03/03/2021 2:33 PM CDT Sexual Orientation Straight 03/03/2021 2: 33 PM CDT documented as of this encounter Plan of Treatment Not on file documented as of this encounter Visit Diagnoses Not on filedocumented in this encounter Care Teams Senior Revenue Accountant Relationship Specialty Start Date End Date No Ref-Primary, Physician PCP - General 08/14/18 03/05/21 [place] [address] [place] [address] PCP - Assigned PCP 07/30/18 09/08/18 Bryon Bell MD PCP - General Family Medicine 03/06/21 05/05/22 Vitaliy Solo MD [facility] [address] [place] [address] PCP - General Emergency Medicine 07/19/22 [place] [address] [place] [address] Assigned PCP 07/30/18 01/18/21 [place] [address] [place] [address] Assigned PCP 01/19/21 03/10/21 Nikki Pierre RN Personal Advocate & Liaison (PAL) Family Medicine 03/06/21 03/25/22 [place] [address] [place] [address] Assigned PCP 03/11/21 01/18/22 Amanda Ibrahim MD Assigned Heart and Vascular Provider 04/22/21 05/26/21 Laureen Dye, GUS BOBBIN STRIPPER [address] [place] [address] Assigned Heart and Vascular Provider 05/27/21 01/17/23 Franny Shrestha PA-C [address] [place] [address] Physician Track Hoe Operator Urology 10/01/21 Franny Shrestha PA-C [address] [place] [address] Assigned Surgical Provider 12/29/21 11/22/22 [place] [address] [place] [address] Assigned PCP 01/19/22 03/08/22 [place] [address] [place] [address] Assigned PCP 03/09/22 03/22/22 [place] [address] [place] [address] Assigned PCP 03/23/22 06/21/22 [place] [address] [place] [address] Family Medicine 08/27/22 [place] [address] [place] [address] Assigned PCP 08/31/22 10/27/23 Aimee Mascorro MD [facility] [address], [address] [place] [address] Assigned Surgical Provider 11/23/22 12/20/22 Franny Shrestha PA-C [address] [place] [address] Assigned Surgical Provider 12/21/22 Amanda Ibrahim MD Assigned Heart and Vascular Provider 01/18/23 01/26/24 [facility] [address] [place] [address] Assigned PCP 10/28/23 documented as of this encounter
--- OUTSIDE RECORDS SUMMARY | 2024-05-20 17:03 | XMS_ITS | Encounter Summary ---
Author Organization [place] Address [address] [place] [address] Care Team Providers Care Heavy Truck Driver Name Role Phone Page, Nikki Vega RN Unavailable Unavailable Bryon Bell MD Primary Care Provider + [phone] Bryon Bell MD Unavailable [phone] Laureen Dye APRN PHOTOGRAPHY PROFESSOR Unavailable [phone] Franny Shrestha PA-C Unavailable [phone] Franny Shrestha PA-C Unavailable Anyi Broderick MD Unavailable Bryon Bell MD Unavailable [phone] Anyi Broderick MD Unavailable Vitaliy Solo MD Primary Care Provider Bryon Bell MD Unavailable [phone] Anyi Broderick MD Unavailable Aimee Mascorro MD Unavailable [phone] Franny Shrestha PA-C Unavailable [phone] Amanda Ibrahim MD Unavailable [facility] Unavailabl e Encounter Details Date Type Department Care Team (Late st Contact Info) Description 08/29/2021 [facility] [place] [facility] [address] [place] [phone] Nikki Pierre, RN Social History Tobacco Use [...] PM CDT 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 RECEIVABLE CLERK Gender Identity Male 03/03/2021 2:33 PM CDT Sexual Orientation Straight 03/03/2021 2: 33 PM CDT COVID-19 Exposure Response Date Recorded In the last month, have you been in contact with someone who was confirmed or suspected to have Coronavirus / COVID-19? No / Unsure 08/29/2021 9:40 AM RECEIVABLE CLERK documented as of this encounter Plan of Treatment Not on file documented as of this encounter Visit Diagnoses Not on filedocumented in this encounter Care Teams Heavy Truck Driver Relationship Specialty Start Date End Date Bryon Bell MD PCP - General Family Medicine 03/06/21 05/05/22 Vitaliy Solo MD [facility] [address] [place] [address] PCP - General Emergency Medicine 07/19/22 Nikki Pierre, RN Personal Advocate & Liaison (PAL) Family Medicine 03/06/21 03/25/22 [place] [address] [place] [address] Assigned PCP 03/11/21 01/18/22 Laureen Dye, RADIO ASSEMBLER PHOTOGRAPHY PROFESSOR [address] [place] [address] Assigned Heart and Vascular Provider 05/27/21 01/17/23 Franny Shrestha PA-C [address] [place] [address] Physician Computer Scientist Urology 10/01/21 Franny Shrestha PA-C [address] [place] [address] Assigned Surgical Provider 12/29/21 11/22/22 [place] [address] [place] [address] Assigned PCP 01/19/22 03/08/22 [place] [address] [place] [address] Assigned PCP 03/09/22 03/22/22 [place] [address] [place] [address] Assigned PCP 03/23/22 06/21/22 [place] [address] [place] [address] Family Medicine 08/27/22 [place] [address] [place] [address] Assigned PCP 08/31/22 10/27/23 Aimee Mascorro MD [facility] [address] [place] [address] Assigned Surgical Provider 11/23/22 12/20/22 Franny Shrestha PA-C [address] [place] [address] Assigned Surgical Provider 12/21/22 Amanda Ibrahim MD Assigned Heart and Vascular Provider 01/18/23 01/26/24 [facility] [address] [place] [address] Assigned PCP 10/28/23 documented as of this encounter
--- OUTSIDE RECORDS SUMMARY | 2024-05-20 17:03 | XMS_ITS | Encounter Summary ---
Author Organization [place] Address [address] [place] [address] Care Team Providers Care Visual Effects Artist Name Role Phone Page, Nikki Vega RN Unavailable Unavailable Bryon Bell MD Primary Care Provider + [phone] Bryon Bell MD Unavailable [phone] Amanda Ibrahim MD Unavailable Unavailabl Laureen Dye APRN [facility] Unavailable [phone] Franny Shrestha PA-C Unavailable [phone] Franny Shrestha PA-C Unavailable [phone] Anyi Broderick MD Unavailable Bryon Bell MD Unavailable [phone] Anyi Broderick MD Unavailable Vitaliy Solo MD Primary Care Provider Bryon Bell MD Unavailable [phone] Anyi Broderick MD Unavailable Aimee Mascorro MD Unavailable [phone] Franny Shrestha PA-C Unavailable [phone] Amanda Ibrahim MD Un[facility] Encounter Details Date Type Department Care Team (Late st Contact Info) Description 04/18/2021 [facility] [address] [place] [phone] [place] [address] [place] [address] Social History Tobacco Use Types Packs/Day Years [...] PM CDT 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 CUT OFF WORKER Gender Identity Male 03/03/2021 2:33 PM [...] on filedocumented in this encounter Care Teams Visual Effects Artist Relationship Specialty Start Date End Date Bryon Bell MD PCP - General Family Medicine 03/06/21 05/05/22 Vitaliy Solo MD [facility] [address] [place] [address] PCP - General Emergency Medicine 07/19/22 Nikki Pierre RN Personal Advocate & Liaison (PAL) Family Medicine 03/06/21 03/25/22 [place] [address] [place] [address] Assigned PCP 03/11/21 01/18/22 Amanda Ibrahim MD Assigned Heart and Vascular Provider 04/22/21 05/26/21 Hardik Laureen GUS Bergman PRINT SUPPORT SPECIALIST [address] [place] [address] Assigned Heart and Vascular Provider 05/27/21 01/17/23 Franny Shrestha PA-C [address] [place] [address] Physician Ed Manager Urology 10/01/21 Franny Shrestha PA-C [address] [place] [address] Assigned Surgical Provider 12/29/21 11/22/22 [place] [address] [place] [address] Assigned PCP 01/19/22 03/08/22 [place] [address] [place] [address] Assigned PCP 03/09/22 03/22/22 [place] [address] [place] [address] Assigned PCP 03/23/22 06/21/22 [place] [address] [place] [address] Family Medicine 08/27/22 [place] [address] [address] [address] Assigned PCP 08/31/22 10/27/23 Aimee Mascorro MD [facility] [address] [place] [address] Assigned Surgical Provider 11/23/22 12/20/22 Franny Shrestha PA-C [address] [place] [address] Assigned Surgical Provider 12/21/22 Amanda Ibrahim MD Assigned Heart and Vascular Provider 01/18/23 01/26/24 [facility] [address] [place] [address] Assigned PCP 10/28/23 documented as of this encounter
--- OUTSIDE RECORDS SUMMARY | 2024-05-20 17:03 | XMS_ITS | Encounter Summary ---
Author Organization [facility] Address [address] [place] [address] Care Team Providers Care Datacap Developer Name Role Phone Page, Nikki Vega RN Unavailable Unavailable Bryon Bell MD Primary Care Provider + [phone] Bryon Bell MD Unavailable [phone] Amanda Ibrahim MD Unavailable [facility]abl [facility] Unavailable [phone] Franny Shrestha PA-C Unavailable [phone] Franny Shrestha PA-C Unavailable [phone] Anyi Broderick MD Unavailable Bryon Bell MD Unavailable [phone] Anyi Broderick MD Unavailable Vitaliy Solo MD Primary Care Provider Bryon Bell MD Unavailable [phone] Anyi Broderick MD Unavailable Aimee Mascorro MD Unavailable [phone] Franny Shrestha PA-C Unavailable [phone] Amanda Ibrahim MD Un[facility] Reason for Visit * Reason Onset Date Comments MyChart Communication 05/03/2021 Encounter Details Date Type Department Care Team (Late st Contact Info) Description 05/03/2021 [facility] [address] [place] [id number] [place] [address] [address] [place], [place] [id number] MyChart Communication Social History Tobacco Use Types [...] PM CDT 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 HEADSTART TEACHER Gender Identity Male 03/03/2021 2:33 PM CDT [...] on filedocumented in this encounter Care Teams Datacap Developer Relationship Specialty Start Date End Date Bryon Bell MD PCP - General Family Medicine 03/06/21 05/05/22 Vitaliy Solo MD [facility] [address] [place] [address] PCP - General Emergency Medicine 07/19/22 Nikki Pierre RN Personal Advocate & Liaison (PAL) Family Medicine 03/06/21 03/25/22 [place] [address] [place] [address] Assigned PCP 03/11/21 01/18/22 Amanda Ibrahim MD Assigned Heart and Vascular Provider 04/22/21 05/26/21 Hardik Laureen BergmanGUS ENVIRONMENTAL MARKETER [address] [place] [address] Assigned Heart and Vascular Provider 05/27/21 01/17/23 Franny Shrestha PA-C [address] [place] [address] Physician Video Effects Editor Urology 10/01/21 Franny Shrestha PA-C [address] [place] [address] Assigned Surgical Provider 12/29/21 11/22/22 [place] [address] [place] [address] Assigned PCP 01/19/22 03/08/22 [place] [address] [place] [address] Assigned PCP 03/09/22 03/22/22 [place] [address] [place] [address] Assigned PCP 03/23/22 06/21/22 [place] [address] [place] [address] Family Medicine 08/27/22 [place] [address] [place] [address] Assigned PCP 08/31/22 10/27/23 Aimee Mascorro MD [facility] [address], [address] [place] [address] Assigned Surgical Provider 11/23/22 12/20/22 Franny Shrestha PA-C [address] [place] [address] Assigned Surgical Provider 12/21/22 Amanda Ibrahim MD Assigned Heart and Vascular Provider 01/18/23 01/26/24 [facility] [address] [place] [address] Assigned PCP 10/28/23 documented as of this encounter
== END 2024-05-20 18:18 | disposition home or self-care (01) ==
PROVIDERS: Emergency Provider Student in an Organized Health Care Education/Training Program; PCP Internal Medicine
DX: R60.0 Localized edema (principal)
CPT/HCPCS: 93971; 99282; 99283

== ENCOUNTER 2024-07-15 11:03 | Outpatient (CLI) | payer MEDICARE, BC, SELFPAY | END 2024-07-15 11:04 | disposition home or self-care (01) | PROVIDERS: PCP Internal Medicine; Visit Provider Internal Medicine Cardiovascular Disease | DX: I10 Essential (primary) hypertension (principal); I48.0 Paroxysmal atrial fibrillation; I34.0 Nonrheumatic mitral (valve) insufficiency | CPT/HCPCS: 80048; 84443; 84460 ==

== ENCOUNTER 2024-08-02 10:52 | Emergency (ER) | payer MEDICARE, BC, SELFPAY ==
--- OUTSIDE RECORDS SUMMARY | 2024-08-02 10:54 | XMS_ITS | Encounter Summary ---
Author Organization [facility] Address [address] [place] [address] Care Team Providers Care Senior Clinical Project Manager Name Role Phone No Ref-Primary, Physician Primary Care Provider Bryon Bell MD Unavailable [phone] Bryon Bell MD Unavailable [phone] Anyi Broderick MD Unavailable Nikki Pierre RN Unavailable Unavailable Bryon Bell MD Primary Care Provider + [phone] Bryon Bell MD Unavailable [phone] Amanda Ibrahim MD Unavailable UnavailLaureen Doe APRN [employer] Unavailable [phone] Franny Shrestha PA-C Unavailable [phone] Franny Shrestha PA-C Unavailable Anyi Broderick MD Unavailable Bryon Bell MD Unavailable [phone] Anyi Broderick MD Unavailable Vitaliy Solo MD Primary Care Provider Bryon Bell MD Unavailable [phone] Anyi Broderick MD Unavailable Aimee Mascorro MD Unavailable [phone] Franny Shrestha PA-C Unavailable Amanda Ibrahim MD Unavailable Unavailabl e [facility] Unavailabl e Reason for Visit * Reason Onset Date Comments MyChart Communication 08/26/2018 Encounter Details Date Type Department Care Team (Late st Contact Info) Description 08/26/2018 MyC Medical Advice [facility] [address] [place] [address] [place] [address] [place] [address] MyChart Communication Social History Tobacco Use Types Packs/Day Years Used Date Smoking Tobacco: Former Smokeless Tobacco: Never Alcohol Use Standard Drinks/Week Comments Yes 0 (1 standard drink = 0.6 oz pur e alcohol) PHQ-2 Answer Date Recorded PHQ-2 Score 0 08/21/2018 Sex and Gender Information Value Date Recorded Sex Assigned at Male 03/03/2021 2:33 PM CDT 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 CAREER CENTER DIRECTOR Gender Identity Male 03/03/2021 2:33 PM CDT Sexual Orientation Straight 03/03/2021 2: 33 PM CDT documented as of this encounter Plan of Treatment Not on file documented as of this encounter Visit Diagnoses Not on filedocumented in this encounter Care Teams Senior Clinical Project Manager Relationship Specialty Start Date End Date No Ref-Primary, Physician PCP - General 08/14/18 03/05/21 [place] [address] [place] [address] PCP - Assigned PCP 07/30/18 09/08/18 Bryon Bell MD PCP - General Family Medicine 03/06/21 05/05/22 Vitaliy Solo MD [facility] [address] [place] [address] PCP - General Emergency Medicine 07/19/22 [place] [address] [place] [address] Assigned PCP 07/30/18 01/18/21 [place] [address] [place] [address] Assigned PCP 01/19/21 03/10/21 Nikki Pierre RN Personal Advocate & Liaison (PAL) Family Medicine 03/06/21 03/25/22 [place] [address] [place] [address] Assigned PCP 03/11/21 01/18/22 Amanda Ibrahim MD Assigned Heart and Vascular Provider 04/22/21 05/26/21 Laureen Dye, GUS REPAIRER [employer] [address] [place] [address] Assigned Heart and Vascular Provider 05/27/21 01/17/23 Franny Shrestha PA-C [address] [place] [address] Physician Weed Science Research Technician Urology 10/01/21 Franny Shrestha PA-C [address] [place] [address] Assigned Surgical Provider 12/29/21 11/22/22 [place] [address] [place] [address] Assigned PCP 01/19/22 03/08/22 [place] [address] [place] [address] Assigned PCP 03/09/22 03/22/22 [place] [address] [place] [address] Assigned PCP 03/23/22 06/21/22 [place] [address] [place] [address] Family Medicine 08/27/22 [place] [address] [place] [address] Assigned PCP 08/31/22 10/27/23 Aimee Mascorro MD [facility] [address], [address] [place] [address] Assigned Surgical Provider 11/23/22 12/20/22 Franny Shrestha PA-C [address] [place] [address] Assigned Surgical Provider 12/21/22 05/28/24 Amanda Ibrahim MD Assigned Heart and Vascular Provider 01/18/23 01/26/24 [facility] [address] [place] [address] Assigned PCP 10/28/23 documented as of this encounter
--- OUTSIDE RECORDS SUMMARY | 2024-08-02 10:54 | XMS_ITS | Encounter Summary ---
Author Organization [facility] Address [address] [place] [address] Care Team Providers Care Firebreak Cutter Name Role Phone Page, Nikki Vega RN Unavailable Unavailable Bryon Bell MD Primary Care Provider + [phone] Bryon Bell MD Unavailable [phone] Laureen Dye APRN TRY OUT PERSON Unavailable [phone] Franny Shrestha PA-C Unavailable [phone] Franny Shrestha PA-C Unavailable Anyi Broderick MD Unavailable Bryon Bell MD Unavailable [phone] Anyi Broderick MD Unavailable Vitaliy Solo MD Primary Care Provider Bryon Bell MD Unavailable [phone] Anyi Broderick MD Unavailable Aimee Mascorro MD Unavailable [phone] Franny Shrestha PA-C Unavailable [phone] Amanda Ibrahim MD Un[facility] Unavailabl e Encounter Details Date Type Department Care Team (Late st Contact Info) Description 08/29/2021 [facility] [address] [place] [phone] Nikki Pierre, RN Social History Tobacco Use [...] PM CDT 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 No / Unsure 08/29/2021 9:40 AM FLOW TRADER documented as of this encounter Plan of Treatment Not on file documented as of this encounter Visit Diagnoses Not on filedocumented in this encounter Care Teams Firebreak Cutter Relationship Specialty Start Date End Date Bryon Bell MD PCP - General Family Medicine 03/06/21 05/05/22 Vitaliy Solo MD [facility] [address] [place] [address] PCP - General Emergency Medicine 07/19/22 Nikki Pierre, RN Personal Advocate & Liaison (PAL) Family Medicine 03/06/21 03/25/22 [place] [address] [place] [address] Assigned PCP 03/11/21 01/18/22 Laureen Dye, CULTURED MARBLE PRODUCTS MAKER TRY OUT PERSON [address] [place] [address] Assigned Heart and Vascular Provider 05/27/21 01/17/23 Franny Shrestha PA-C [address] [place] [address] Physician Web Applications Architect Urology 10/01/21 Franny Shrestha PA-C [address] [place] [address] Assigned Surgical Provider 12/29/21 11/22/22 [place] [address] [place] [address] Assigned PCP 01/19/22 03/08/22 [place] [address] [place] [address] Assigned PCP 03/09/22 03/22/22 [place] [address] [place] [address] Assigned PCP 03/23/22 06/21/22 [place] [address] [place] [address] Family Medicine 08/27/22 [place] [address] [place] [address] Assigned PCP 08/31/22 10/27/23 Aimee Mascorro MD [facility] [address], [address] [place] [address] Assigned Surgical Provider 11/23/22 12/20/22 Franny Shrestha PA-C [address] [place] [address] Assigned Surgical Provider 12/21/22 05/28/24 Amanda Ibrahim MD Assigned Heart and Vascular Provider 01/18/23 01/26/24 [facility] [address] [place] [address] Assigned PCP 10/28/23 documented as of this encounter
--- OUTSIDE RECORDS SUMMARY | 2024-08-02 10:54 | XMS_ITS | Clinical Summary ---
Author Organization [facility] Address [address] [facility] , [address] [place] [address] Phone Care Team Providers Care Warranty Clerk Name Role Phone 1CareTeamNurse-MA, 1CareTeamNurse-MA Unavailable Unavailable Conditions or Problems Problem Name Problem Code Onset Date Status Entry Date Provider Comment Standard Description Annotate Leg muscle atrophy of quadriceps 55171350 (SNOMED CT) Active Gonzalez Wolf MD Muscle atrophy Lumbar radiculopath y, right 323844026 (SNOMED CT) Active Gonzalez Wolf MD Lumbar radiculopathy Weakness of right leg 336983596 (SNOMED CT) Active Gonzalez Wolf MD Monoparesis of lower limb Vertigo 279862525 (SNOMED CT) Active Gonzalez Wolf MD Vertigo Meningioma, brain 099764171 (SNOMED CT) Active Gonzalez Wolf MD Intracranial meningioma Medications Medication Instructions Start Date Stop Date Generic Name [facility] Provider VITAMIN A/VITAMIN D3 (NATURAL VITAMIN D ORAL) Take by mouth. NATURAL VITAMIN D ORAL QIEUSER QIEUSER SPIRONOLACTONE 25 MG TABS Take 1 Tablet (25 mg) by mouth once daily. spironolactone [id number] QIEUSER QIEUSER METOPROLOL SUCCINATE ER 50 MG [id number] Take 50 mg by mouth once daily. metoprolol succinate [id number] QIEUSER QIEUSER LISINOPRIL 40 MG TABS Take 40 mg by mouth once daily. lisinopril [id number] QIEUSER QIEUSER CLOTRIMAZOLE-BETA METHASONE 1-0.05 % CREA Apply small amount to affected area(s) 2 times daily clotrimazole-bet amethasone [id number] QIEUSER QIEUSER ELIQUIS 5 MG TABS TAKE 1 TABLET (5 MG) BY MOUTH 2 TIMES DAILY apixaban [id number] QIEUSER QIEUSER AMIODARONE HCL 200 MG TABS Take 200 mg by mouth once daily. amiodarone 92143124947 QIEUSER QIEUSER Medications Administered No information available. Allergies, Adverse Reactions, Alerts No information available. Results Date Name Value Unit Range Flag Description Office Visit: Office Visit B rain mass MRI/CT at [facility] Recor MEDS REVIEW Done Documenta tion of current medications (procedure) Internal Other: Authorizatio n - OBS [email or web address] Yes Authoriza tion: Release of Information - Authorize [facility] - Payment and Healthcare Operations ROIAUTHOTHER Yes Authoriz ation: Release of Information - Authorize Others/Insurance - Payment and Healthcare Operations HIECONSENT Yes Consent To Release information to the Health Information Exchange (HIE) [email or web address] Yes Authorizat ion: Authorization for [facility] to leave messages, voicemail, send text messages, send emails AUTHRELHCARE Yes Authoriz ation: Release/Retrieval of Information to/from Healthcare Facilities, Pharmacy Benefit Payers and Providers [email or web address] Yes Authoriz ation: Notice of privacy practices AUTHBENEFIT Yes Authoriza tion: Assignment of Benefits and Payment Agreement Plan of Care Type Date Detail Referral Neurosurgery Ref erral Referral Neurosurgery Ref erral Referral Neurosurgery Ref erral Referral Neurosurgery Ref erral Pending order Follow up with N eurologist or [facility] Pending order Follow up with N eurologist or [facility] Pending order MRI-Brain W/WO Pending order MRA-Neck W/WO Pending order Instructions for Staff Pending order Instructions for Staff Procedures Code Procedure Name Date Entry Date [id number] MRI-Brain W/WO [id number] MRA-Neck W/WO [id number] MultiHance Gadoliniu m-based MR Contrast - 15 ml vial CPT-21561 MRA Neck W/WO CPT-40745 MRI Brain W/WO [id number] Documentation of current medicatio ns Vital Signs Date Name Value Unit Description Weight Measured 194 [lb_av] weight E& M Heart Rate 68 /min pulse rate Immunizations No information available. Advance Directives No information available.
--- OUTSIDE RECORDS SUMMARY | 2024-08-02 10:54 | XMS_ITS | Encounter Summary ---
Author Organization [facility] Address [address] [place] [address] Care Team Providers Care Clinical Nutritionist Name Role Phone No Ref-Primary, Physician Primary Care Provider Bryon Bell MD Unavailable [phone] Bryon Bell MD Unavailable [phone] Anyi Broderick MD Unavailable Nikki Pierre RN Unavailable Unavailable Bryon Bell MD Primary Care Provider + [phone] Bryon Bell MD Unavailable [phone] Amanda Ibrahim MD Unavailable UnavailLaureen Doe APRN PROJECT DESIGN ENGINEER Unavailable [phone] Franny Shrestha PA-C Unavailable [phone] Franny Shrestha PA-C Unavailable Anyi Broderick MD Unavailable Bryon Bell MD Unavailable [phone] Anyi Broderick MD Unavailable Vitaliy Solo MD Primary Care Provider Bryon Bell MD Unavailable [phone] Anyi Broderick MD Unavailable Aimee Mascorro MD Unavailable [phone] Franny Shrestha PA-C Unavailable Amanda Ibrahim MD Unavailable Unavailabl e [facility] Encounter Details Date Type Department Care Team (Late st Contact Info) Description 08/21/2018 MyC Medical Advice [facility] [address] [place] [phone] [place] [address] [place] [address] Social History Tobacco Use Types Packs/Day Years Used Date Smoking Tobacco: Former Smokeless Tobacco: Never Alcohol Use Standard Drinks/Week Comments Yes 0 (1 standard drink = 0.6 oz pur e alcohol) PHQ-2 Answer Date Recorded PHQ-2 Score 0 08/21/2018 Sex and Gender Information Value Date Recorded Sex Assigned at Male 03/03/2021 2:33 PM CDT 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 DOCTOR OF NURSING PRACTICE Gender Identity Male 03/03/2021 2:33 PM CDT Sexual Orientation Straight 03/03/2021 2: 33 PM CDT documented as of this encounter Plan of Treatment Not on file documented as of this encounter Visit Diagnoses Not on filedocumented in this encounter Care Teams Clinical Nutritionist Relationship Specialty Start Date End Date No Ref-Primary, Physician PCP - General 08/14/18 03/05/21 [place] [address] [place] [address] PCP - Assigned PCP 07/30/18 09/08/18 Bryon Bell MD PCP - General Family Medicine 03/06/21 05/05/22 Vitaliy Solo MD [facility] [address] [place] [address] PCP - General Emergency Medicine 07/19/22 [place] [address] [place] [address] Assigned PCP 07/30/18 01/18/21 [place] [address] [place] [address] Assigned PCP 01/19/21 03/10/21 Nikki Pierre RN Personal Advocate & Liaison (PAL) Family Medicine 03/06/21 03/25/22 [place] [address] [place] [address] Assigned PCP 03/11/21 01/18/22 Amanda Ibrahim MD Assigned Heart and Vascular Provider 04/22/21 05/26/21 Laureen Dye APRN PROJECT DESIGN ENGINEER [address] [place] [address] Assigned Heart and Vascular Provider 05/27/21 01/17/23 Franny Shrestha PA-C [address] [place] [address] Physician Chest Painting Leader Urology 10/01/21 Franny Shrestha PA-C [address] [place] [address] Assigned Surgical Provider 12/29/21 11/22/22 [place] [address] [place] [address] Assigned PCP 01/19/22 03/08/22 [place] [address] [place] [address] Assigned PCP 03/09/22 03/22/22 [place] [address] [place] [address] Assigned PCP 03/23/22 06/21/22 [place] [address] [place] [address] Family Medicine 08/27/22 [place] [address] [place] [address] Assigned PCP 08/31/22 10/27/23 Aimee Mascorro MD [facility] [address] [place] [address] Assigned Surgical Provider 11/23/22 12/20/22 Franny Shrestha PA-C [address] [place] [address] Assigned Surgical Provider 12/21/22 05/28/24 Amanda Ibrahim MD Assigned Heart and Vascular Provider 01/18/23 01/26/24 [facility] [address] [place] [address] Assigned PCP 10/28/23 documented as of this encounter
--- OUTSIDE RECORDS SUMMARY | 2024-08-02 10:54 | XMS_ITS | Encounter Summary ---
Author Organization [place] Address [address] [place] [address] Care Team Providers Care Transformation Coach Name Role Phone No Ref-Primary, Physician Primary Care Provider Bryon Bell MD Unavailable [phone] Bryon Bell MD Unavailable [phone] Aniy Broderick MD Unavailable Nikki Pierre RN Unavailable Unavailable Bryon Bell MD Primary Care Provider + [phone] Bryno Bell MD Unavailable [phone] Amanda Ibrahim MD Unavailable UnavailLaureen Doe APRN [employer] BPM DEVELOPER Unavailable [phone] Franny Shrestha PA-C Unavailable [phone] Franny Shrestha PA-C Unavailable Anyi Broderick MD Unavailable Bryon Bell MD Unavailable [phone] Anyi Broderick MD Unavailable Vitaliy Solo MD Primary Care Provider Bryon Bell MD Unavailable [phone] Anyi Broderick MD Unavailable Aimee Mascorro MD Unavailable [phone] Franny Shrestha PA-C Unavailable Amanda Ibrahim MD Unavailable Unavailabl e [facility] Encounter Details Date Type Department Care Team (Late st Contact Info) Description 08/26/2018 MyC Medical Advice [facility] [address] [place] [phone] [place] [address] [facility] [place] [address] Social History Tobacco Use Types Packs/Day Years Used Date Smoking Tobacco: Former Smokeless Tobacco: Never Alcohol Use Standard Drinks/Week Comments Yes 0 (1 standard drink = 0.6 oz pur e alcohol) PHQ-2 Answer Date Recorded PHQ-2 Score 0 08/21/2018 Sex and Gender Information Value Date Recorded Sex Assigned at Male 03/03/2021 2:33 PM CDT 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 EXPANSION JOINT FINISHER Gender Identity Male 03/03/2021 2:33 PM CDT Sexual Orientation Straight 03/03/2021 2: 33 PM CDT documented as of this encounter Plan of Treatment Not on file documented as of this encounter Visit Diagnoses Not on filedocumented in this encounter Care Teams Transformation Coach Relationship Specialty Start Date End Date No Ref-Primary, Physician PCP - General 08/14/18 03/05/21 [place] [address] [place] [address] PCP - Assigned PCP 07/30/18 09/08/18 Bryon Bell MD PCP - General Family Medicine 03/06/21 05/05/22 Vitaliy Solo MD [facility] [address] [place] [address] PCP - General Emergency Medicine 07/19/22 [place] [address] [place] [address] Assigned PCP 07/30/18 01/18/21 [place] [address] [place] [address] Assigned PCP 01/19/21 03/10/21 Nikki Pierre RN Personal Advocate & Liaison (PAL) Family Medicine 03/06/21 03/25/22 [place] [address] [place] [address] Assigned PCP 03/11/21 01/18/22 Amanda Ibrahim MD Assigned Heart and Vascular Provider 04/22/21 05/26/21 Laureen Dye APRN [employer] BPM DEVELOPER [address] [place] [address] Assigned Heart and Vascular Provider 05/27/21 01/17/23 Franny Shrestha PA-C [address] [place] [address] Physician Senior Producer Urology 10/01/21 Franny Shrestha PA-C [address] [place] [address] Assigned Surgical Provider 12/29/21 11/22/22 [place] [address] [place] [address] Assigned PCP 01/19/22 03/08/22 [place] [address] [place] [address] Assigned PCP 03/09/22 03/22/22 [place] [address] [place] [address] Assigned PCP 03/23/22 06/21/22 [place] [address] [place] [address] Family Medicine 08/27/22 [place] [address] [place] [address] Assigned PCP 08/31/22 10/27/23 Aimee Mascorro MD [facility] [address] [place] [address] Assigned Surgical Provider 11/23/22 12/20/22 Franny Shrestha PA-C [address] [place] [address] Assigned Surgical Provider 12/21/22 05/28/24 Amanda Ibrahim MD Assigned Heart and Vascular Provider 01/18/23 01/26/24 [facility] [address] [place] [address] Assigned PCP 10/28/23 documented as of this encounter
--- OUTSIDE RECORDS SUMMARY | 2024-08-02 10:54 | XMS_ITS | Encounter Summary ---
Author Organization [place] Address [address] [place] [address] Care Team Providers Care Customs Investigator Name Role Phone Page, Nikki Vega RN Unavailable Unavailable Bryon Bell MD Primary Care Provider + [phone] Bryon Bell MD Unavailable [phone] Laureen Dye APRN ACCOUNT MANAGER B2B Unavailable [phone] Franny Shrestha PA-C Unavailable rFanny Shrestha PA-C Unavailable Anyi Broderick MD Unavailable Bryon Bell MD Unavailable [phone] Anyi Broderick MD Unavailable Vitaliy Solo MD Primary Care Provider Bryon Bell MD Unavailable [phone] Anyi Broderick MD Unavailable Aimee Mascorro MD Unavailable [phone] Franny Shrestha PA-C Unavailable [phone] Amanda Ibrahim MD Un[facility] Un[facility] e Encounter Details Date Type Department Care Team (Late st Contact Info) Description 09/11/[address] [facility] [address] [place] [address] Nikki Pierre RN Social History Tobacco Use Types Packs/Day Years Used Date Smoking Tobacco: Never Smokeless Tobacco: Never Alcohol Use Standard Drinks/Week Comments Yes 0 (1 standard drink = 0.6 oz pur e alcohol) occ PHQ-2 Answer Date Recorded PHQ-2 Score 0 09/06/2021 Sex and Gender Information Value Date Recorded Sex Assigned at Male 03/03/2021 2:33 PM CDT 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 CONSULTING SENIOR PRACTICE DIRECTOR Gender Identity Male 03/03/2021 2:33 PM CDT Sexual Orientation Straight 03/03/2021 2: 33 PM CDT COVID-19 Exposure Response Date Recorded In the last month, have you been in contact with someone who was confirmed or suspected to have Coronavirus / COVID-19? No / Unsure 09/13/2021 3:04 PM CONSULTING SENIOR PRACTICE DIRECTOR documented as of this encounter Plan of Treatment Not on file documented as of this encounter Visit Diagnoses Not on filedocumented in this encounter Care Teams Customs Investigator Relationship Specialty Start Date End Date Bryon Bell MD PCP - General Family Medicine 03/06/21 05/05/22 Vitaliy Solo MD [facility] [address] [place] [address] PCP - General Emergency Medicine 07/19/22 Nikki Pierre RN Personal Advocate & Liaison (PAL) Family Medicine 03/06/21 03/25/22 [place] [address] [place] [address] Assigned PCP 03/11/21 01/18/22 Laureen Dye APRN ACCOUNT MANAGER B2B [address] [place] [address] Assigned Heart and Vascular Provider 05/27/21 01/17/23 Franny Shrestha PA-C [address] [place] [address] Physician Benzol Operator Urology 10/01/21 Franny Shrestha PA-C [address] [place] [address] Assigned Surgical Provider 12/29/21 11/22/22 [place] [address] [place] [address] Assigned PCP 01/19/22 03/08/22 [place] [address] [place] [address] Assigned PCP 03/09/22 03/22/22 [place] [address] [place] [address] Assigned PCP 03/23/22 06/21/22 [place] [address] [place] [address] Family Medicine 08/27/22 [place] [address] [place] [address] Assigned PCP 08/31/22 10/27/23 Aimee Mascorro MD [facility] [address] [place] [address] Assigned Surgical Provider 11/23/22 12/20/22 Franny Shrestha PA-C [address] [place] [address] Assigned Surgical Provider 12/21/22 05/28/24 Amanda Ibrahim MD Assigned Heart and Vascular Provider 01/18/23 01/26/24 [facility] [address] [place] [address] Assigned PCP 10/28/23 documented as of this encounter
--- OUTSIDE RECORDS SUMMARY | 2024-08-02 10:54 | XMS_ITS | Encounter Summary ---
Author Organization [place] Address [address] [place] [address] Care Team Providers Care Ward Helper Name Role Phone Page, Nikki Vega RN Unavailable Unavailable Bryon Bell MD Primary Care Provider + [phone] Bryon Bell MD Unavailable [phone] Laureen Dye APRN MECHANICAL STRIPER Unavailable [phone] Franny Shrestha PA-C Unavailable Franny Shrestha PA-C Unavailable Anyi Broderick MD Unavailable Bryon Bell MD Unavailable [phone] Anyi Broderick MD Unavailable Vitaliy Solo MD Primary Care Provider Bryon Bell MD Unavailable [phone] Anyi Broderick MD Unavailable Aimee Mascorro MD Unavailable [phone] Franny Shrestha PA-C Unavailable [phone] Amanda Ibrahim MD Un[facility] Unavail[facility] e Encounter Details Date Type Department Care Team (Late st Contact Info) Description 09/27/2021 [facility] Medical Advice [facility] [address] [place] [address] [place] [address] [facility] [place] [address] Social History Tobacco Use Types Packs/Day Years Used Date Smoking Tobacco: Never Smokeless Tobacco: Never Alcohol Use Standard Drinks/Week Comments Yes 0 (1 standard drink = 0.6 oz pur e alcohol) occ PHQ-2 Answer Date Recorded PHQ-2 Score 0 09/06/2021 Sex and Gender Information Value Date Recorded Sex Assigned at Male 03/03/2021 2:33 PM CDT 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 PLASTIC FABRICATOR Gender Identity Male 03/03/2021 2:33 PM CDT [...] on filedocumented in this encounter Care Teams Ward Helper Relationship Specialty Start Date End Date Bryon Bell MD PCP - General Family Medicine 03/06/21 05/05/22 Vitaliy Solo MD [facility] [address] [place] [address] PCP - General Emergency Medicine 07/19/22 Nikki Pierre, SHERMAN Personal Advocate & Liaison (PAL) Family Medicine 03/06/21 03/25/22 [place] [address] [place] [address] Assigned PCP 03/11/21 01/18/22 Laureen Dye APRN MECHANICAL STRIPER [address] [place] [address] Assigned Heart and Vascular Provider 05/27/21 01/17/23 Franny Shrestha PA-C [address] [place] [address] Physician Belt Fixer Urology 10/01/21 Franny Shrestha PA-C [address] [place] [address] Assigned Surgical Provider 12/29/21 11/22/22 [place] [address] [place] [address] Assigned PCP 01/19/22 03/08/22 [place] [address] [place] [address] Assigned PCP 03/09/22 03/22/22 [place] [address] [place] [address] Assigned PCP 03/23/22 06/21/22 [place] [address] [place] [address] Family Medicine 08/27/22 [place] [address] [place] [address] Assigned PCP 08/31/22 10/27/23 Aimee Mascorro MD [facility] [address] [place] [address] Assigned Surgical Provider 11/23/22 12/20/22 Franny Shrestha PA-C [address] [place] [address] Assigned Surgical Provider 12/21/22 05/28/24 Amanda Ibrahim MD Assigned Heart and Vascular Provider 01/18/23 01/26/24 [facility] [address] [place] [address] Assigned PCP 10/28/23 documented as of this encounter
--- OUTSIDE RECORDS SUMMARY | 2024-08-02 10:55 | XMS_ITS | Encounter Summary ---
Author Organization [place] Address [address] [place] [address] Care Team Providers Care Piggery Worker Name Role Phone Page, Nikki Vega RN Unavailable Unavailable Bryon Bell MD Primary Care Provider + [phone] Bryon Bell MD Unavailable [phone] Laureen Dye APRN MAILROOM ASSISTANT Unavailable [phone] Franny Shrestha PA-C Unavailable [phone] Franny Shrestha PA-C Unavailable Anyi Broderick MD Unavailable Bryon Bell MD Unavailable Anyi Broderick MD Unavailable Vitaliy Solo MD Primary Care Provider Bryon Bell MD Unavailable [phone] Anyi Broderick MD Unavailable Aimee Mascorro MD Unavailable [phone] Franny Shrestha PA-C Unavailable Amanda Ibrahim MD [facility] Reason for Visit * Reason Onset Date Comments MyChart Communication 06/06/2021 Encounter Details Date Type Department Care Team (Late st Contact Info) Description 06/06/2021 [facility] Medical Advice [facility] [id number] [place] [phone] [place] [address] [place] [address] MyChart Communication Social History Tobacco Use Types [...] PM CDT 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 FACT CHECKER Gender Identity Male 03/03/2021 2:33 PM CDT Sexual Orientation Straight 03/03/2021 2: 33 PM CDT COVID-19 Exposure Response Date Recorded In the last month, have you been in contact with someone who was confirmed or suspected to have Coronavirus / COVID-19? No / Unsure 06/08/2021 1:05 PM FACT CHECKER documented as of this encounter Plan of Treatment Not on file documented as of this encounter Visit Diagnoses Not on filedocumented in this encounter Care Teams Piggery Worker Relationship Specialty Start Date End Date Bryon Bell MD PCP - General Family Medicine 03/06/21 05/05/22 Vitaliy Solo MD [facility] [address] [place] [address] PCP - General Emergency Medicine 07/19/22 Nikki Pierre, SHERMAN Personal Advocate & Liaison (PAL) Family Medicine 03/06/21 03/25/22 [place] [address] [place] [address] Assigned PCP 03/11/21 01/18/22 Laureen Dye APRN MAILROOM ASSISTANT [address] [place] [address] Assigned Heart and Vascular Provider 05/27/21 01/17/23 Franny Shrestha PA-C [address] [place] [address] Physician Emergency Planning And Response Manager Urology 10/01/21 Franny Shrestha PA-C [address] [place] [address] Assigned Surgical Provider 12/29/21 11/22/22 [place] [address] [place] [address] Assigned PCP 01/19/22 03/08/22 [place] [address] [place] [address] Assigned PCP 03/09/22 03/22/22 [place] [address] [place] [address] Assigned PCP 03/23/22 06/21/22 [place] [address] [place] [address] Family Medicine 08/27/22 [place] [address] [place] [address] Assigned PCP 08/31/22 10/27/23 Aimee Mascorro MD [facility] [address], [address] [place] [address] Assigned Surgical Provider 11/23/22 12/20/22 Franny Shrestha PA-C [address] [place] [address] Assigned Surgical Provider 12/21/22 05/28/24 Amanda Ibrahim MD Assigned Heart and Vascular Provider 01/18/23 01/26/24 [facility] [address] [place] [address] Assigned PCP 10/28/23 documented as of this encounter
--- OUTSIDE RECORDS SUMMARY | 2024-08-02 10:55 | XMS_ITS | Encounter Summary ---
Author Organization [place] Address [address] [place] [address] Care Team Providers Care Illuminating Engineer Name Role Phone Page, Nikki Vega RN Unavailable Unavailable Bryon Bell MD Primary Care Provider + [phone] Bryon Bell MD Unavailable [phone] Amanda Ibrahim MD Unavailable Unavailabl [facility] Unavailable [phone] Franny Shrestha PA-C Unavailable [phone] Franny Shrestha PA-C Unavailable [phone] Anyi Broderick MD Unavailable Bryon Bell MD Unavailable [phone] Anyi Broderick MD Unavailable Vitaliy Solo MD Primary Care Provider Bryon Bell MD Unavailable [phone] nAyi Broderick MD Unavailable Aimee Mascorro MD Unavailable [phone] Franny Shrestha PA-C Unavailable [phone] Amanda Ibrahim MD Un[facility] Reason for Visit * Reason Onset Date Comments Outreach 05/14/2021 PAL Encounter Details Date Type Department Care Team (Late st Contact Info) Description 05/14/2021 MyC Medical Advice [facility] [address] [place] [address] Nikki Pierre RN Outreach ([facility] ) Social History Tobacco Use [...] PM CDT 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 PREVENTIVE MAINTENANCE COORDINATOR Gender Identity Male 03/03/2021 2:33 PM CDT [...] on filedocumented in this encounter Care Teams Illuminating Engineer Relationship Specialty Start Date End Date Bryon Bell MD PCP - General Family Medicine 03/06/21 05/05/22 Vitaliy Solo MD [facility] [address] [place] [address] PCP - General Emergency Medicine 07/19/22 Nikki Pierre, SHERMAN Personal Advocate & Liaison (PAL) Family Medicine 03/06/21 03/25/22 [place] [address] [place] [address] Assigned PCP 03/11/21 01/18/22 Amanda Ibrahim MD Assigned Heart and Vascular Provider 04/22/21 05/26/21 Laureen Dye, DRAGLINE OPERATOR TESTING SPECIALIST [address] [place] [address] Assigned Heart and Vascular Provider 05/27/21 01/17/23 Franny Shrestha PA-C [address] [place] [address] Physician Oracle Consultant Urology 10/01/21 Franny Shrestha PA-C [address] [place] [address] Assigned Surgical Provider 12/29/21 11/22/22 [place] [address] [place] [address] Assigned PCP 01/19/22 03/08/22 [place] [address] [place] [address] Assigned PCP 03/09/22 03/22/22 [place] [address] [place] [address] Assigned PCP 03/23/22 06/21/22 [place] [address] [place] [address] Family Medicine 08/27/22 [place] [address] [place] [address] Assigned PCP 08/31/22 10/27/23 Aimee Mascorro MD [facility] [address] [place] [address] Assigned Surgical Provider 11/23/22 12/20/22 Franny Shrestha PA-C [address] [place] [address] Assigned Surgical Provider 12/21/22 05/28/24 Amanda Ibrahim MD Assigned Heart and Vascular Provider 01/18/23 01/26/24 [facility] [address] [place] [address] Assigned PCP 10/28/23 documented as of this encounter
--- OUTSIDE RECORDS SUMMARY | 2024-08-02 10:55 | XMS_ITS | Encounter Summary ---
Author Organization [place] Address [address] [place] [address] Care Team Providers Care Life Coach Name Role Phone Page, Nikki Vega RN Unavailable Unavailable Bryon Bell MD Primary Care Provider + [phone] Bryon Bell MD Unavailable [phone] Amanda Ibrahim MD Unavailable Unavailabl Laureen Dye APRN [facility] Unavailable [phone] Franny Shrestha PA-C Unavailable [phone] Franny Shrestha PA-C Unavailable [phone] Anyi Broderick MD Unavailable Bryon Bell MD Unavailable [phone] Anyi Broderick MD Unavailable Vitaliy Solo MD Primary Care Provider Bryon Bell MD Unavailable [phone] Anyi Broderick MD Unavailable Aimee Mascorro MD Unavailable Franny Shrestha PA-C Unavailable [phone] Amanda Ibrahim MD Un[facility] Encounter Details Date Type Department Care Team (Late st Contact Info) Description 05/14/2021 [facility] Medical Advice [facility] Heart [facility] [address] [facility] [address] [place] [address] Amanda Ibrahim MD Social History Tobacco [...] PM CDT 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 [facility] Gender Identity Male 03/03/2021 2:33 PM CDT [...] on filedocumented in this encounter Care Teams Life Coach Relationship Specialty Start Date End Date Bryon Bell MD PCP - General Family Medicine 03/06/21 05/05/22 Vitaliy Solo MD [facility] [address] [place] [address] PCP - General Emergency Medicine 07/19/22 Nikki Pierre, RN Personal Advocate & Liaison (PAL) Family Medicine 03/06/21 03/25/22 [place] [address] [place] [address] Assigned PCP 03/11/21 01/18/22 Amanda Ibrahim MD Assigned Heart and Vascular Provider 04/22/21 05/26/21 Hardik Laureen GUS Bergman RAD TECHNOLOGIST [address] [place] [address] Assigned Heart and Vascular Provider 05/27/21 01/17/23 Franny Shrestha PA-C [address] [place] [address] Physician Tool Coordinator Urology 10/01/21 Franny Shrestha PA-C [address] [place] [address] Assigned Surgical Provider 12/29/21 11/22/22 [place] [address] [place] [address] Assigned PCP 01/19/22 03/08/22 [place] [address] [place] [address] Assigned PCP 03/09/22 03/22/22 [place] [address] [place] [address] Assigned PCP 03/23/22 06/21/22 [place] [address] [place] [address] Family Medicine 08/27/22 [place] [address] [place] [address] Assigned PCP 08/31/22 10/27/23 Aimee Mascorro MD [facility] [address] [place] [address] Assigned Surgical Provider 11/23/22 12/20/22 Franny Shrestha PA-C [address] [place] [address] Assigned Surgical Provider 12/21/22 05/28/24 Amanda Ibrahim MD Assigned Heart and Vascular Provider 01/18/23 01/26/24 [facility] [address] [place] [address] Assigned PCP 10/28/23 documented as of this encounter
--- OUTSIDE RECORDS SUMMARY | 2024-08-02 10:55 | XMS_ITS | Encounter Summary ---
Author Organization [place] Address [address] [place] [address] Care Team Providers Care Developmental Therapist Name Role Phone Franny Shrestha PA-C Unavailable Vitaliy Solo MD Primary Care Provider Bryon Bell MD Unavailable [phone] Anyi Broderick MD Unavailable Franny Shrestha PA-C Unavailable [phone] Amanda Ibrahim MD Unavailable Unavailabl e [facility] Unavailabl e Encounter Details Date Type Department Care Team (Late st Contact Info) Description 09/30/2023 MyC Medical Advice [facility] [address] [place] [phone] Yajaira Cedeño, NUCLEAR TEST TECHNICIAN Social History Tobacco Use Types Packs/Day Years [...] PM CDT 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 [address] [place] [address] PCP - General Emergency Medicine 07/19/22 Franny Shrestha PA-C [address] [place] [address] Physician Tool Trouble Shooter Urology 10/01/21 [place] [address] [facility] [place] [address] Family Medicine 08/27/22 [place] [address] [place] [address] Assigned PCP 08/31/22 10/27/23 Franny Shrestha PA-C [address] [place] [address] Assigned Surgical Provider 12/21/22 05/28/24 Amanda Ibrahim MD Assigned Heart and Vascular Provider 01/18/23 01/26/24 [facility] [address] [place] [address] Assigned PCP 10/28/23 documented as of this encounter
--- OUTSIDE RECORDS SUMMARY | 2024-08-02 10:55 | XMS_ITS | Encounter Summary ---
Author Organization [place] Address [address] [place] [address] Care Team Providers Care Maintenance Service Technician Name Role Phone Page, Nikki Vega RN Unavailable Unavailable Bryon Bell MD Primary Care Provider + [phone] Bryon Bell MD Unavailable [phone] Amanda Ibrahim MD Unavailable Unavailabl Laureen Dye APRN [facility] Unavailable [phone] Franny Shrestha PA-C Unavailable [phone] Franny Shrestha PA-C Unavailable [phone] Anyi Broderick MD Unavailable Bryon Bell MD Unavailable [phone] Anyi Broderick MD Unavailable Vitaliy Solo MD Primary Care Provider Bryon Bell MD Unavailable [phone] Anyi Broderick MD Unavailable Aimee Mascorro MD Unavailable [phone] Franny Shrestha PA-C Unavailable [phone] Amanda Ibrahim MD Un[facility] e Encounter Details Date Type Department Care Team (Late st Contact Info) Description 05/03/2021 [facility] [place] Heart [facility] [address] [facility] [address] [place] [address] Amanda Ibrahim [...] PM CDT 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 Gender Identity Male 03/03/2021 2:33 PM CDT [...] filedocumented in this encounter Care Teams Maintenance Service Technician Relationship Specialty Start Date End Date Bryon Bell MD PCP - General Family Medicine 03/06/21 05/05/22 Vitaliy Solo MD [facility] [address] [place] [address] PCP - General Emergency Medicine 07/19/22 Nikki Pierre, RN Personal Advocate & Liaison (PAL) Family Medicine 03/06/21 03/25/22 [place] [address] [place] [address] Assigned PCP 03/11/21 01/18/22 Amanda Ibrahim MD Assigned Heart and Vascular Provider 04/22/21 05/26/21 Hardik Laureen GUS Bergman APPLICATION DEVELOPMENT DIRECTOR [address] [place] [address] Assigned Heart and Vascular Provider 05/27/21 01/17/23 Franny Shrestha PA-C [address] [place] [address] Physician Food Safety Specialist Urology 10/01/21 Franny Shrestha PA-C [address] [place] [address] Assigned Surgical Provider 12/29/21 11/22/22 [place] [address] [place] [address] Assigned PCP 01/19/22 03/08/22 [place] [address] [place] [address] Assigned PCP 03/09/22 03/22/22 [place] [address] [place] [address] Assigned PCP 03/23/22 06/21/22 [place] [address] [place] [address] Family Medicine 08/27/22 [place] [address] [place] [address] Assigned PCP 08/31/22 10/27/23 Aimee Mascorro MD [facility] [address] [place] [address] Assigned Surgical Provider 11/23/22 12/20/22 Franny Shrestha PA-C [address] [place] [address] Assigned Surgical Provider 12/21/22 05/28/24 Amanda Ibrahim MD Assigned Heart and Vascular Provider 01/18/23 01/26/24 [facility] [address] [place] [address] Assigned PCP 10/28/23 documented as of this encounter
--- OUTSIDE RECORDS SUMMARY | 2024-08-02 10:55 | XMS_ITS | Referral Summary ---
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 Gender Identity Male 03/03/2021 2:33 PM CDT Sexual Orientation Straight 03/03/2021 2: 33 PM CDT Last Filed Vital Signs Vital Sign Reading Time Taken Comments Blood Pressure 160/85 11/19/2022 2:07 PM CDT Pulse 63 11/19/2022 2:07 PM CDT Temperature 36 C (96.8 F) 09/06/2021 10:26 AM ENVIRONMENTAL CONSERVATION PROFESSOR Respiratory Rate 14 09/06/2021 10:26 AM ENVIRONMENTAL CONSERVATION PROFESSOR Oxygen Saturation 98% 07/19/2022 2:28 PM ENVIRONMENTAL CONSERVATION PROFESSOR Inhaled Oxygen Concentration - - Weight 88.9 kg (196 lb) 11/19/2022 2:07 PM CDT Height 182.9 cm (6') 11/19/2022 2:07 PM CDT Body Mass Index 26.58 11/19/2022 2:07 PM CDT Plan of Treatment Not on file Procedures Procedure Name Priority Date/Time Associated Diagnosis Comments BASIC METABOLIC PANEL Routine 08/01/2022 11:08 AM ENVIRONMENTAL CONSERVATION PROFESSOR Atrial fibrillation, unspecified type (H) TSH WITH FREE T4 REFLEX Routine 07/19/2022 1:01 PM ENVIRONMENTAL CONSERVATION PROFESSOR Atrial fibrillation (H) LIPID REFLEX TO DIRECT LDL PANEL Routine 02/28/2020 11:36 AM CDT Lipid screening COLONOSCOPY - HIM SCAN 03/10/2014 12:00 AM CDT from Last 3 Months or Most Recently Relevant to Health Maintenance Results * (ABNORMAL) Basic metabolic panel (08/01/2022 11:08 AM ENVIRONMENTAL CONSERVATION PROFESSOR) Sodium 140 136 - 145 mmol/L 08/01/2022 [...] 70 - 99 mg/dL 08/01/2022 11:43 AM ENVIRONMENTAL CONSERVATION PROFESSOR LABORATORY GFR Estimate 85 >60 mL/min/1.7 3m2 08/01/2022 11:43 AM ENVIRONMENTAL CONSERVATION PROFESSOR LABORATORY Comment:eGFR calculated [facility] CKD-EPI equation. Blood STRUCTURE OF LEFT UPPER LIMB / Unknown Venipuncture / Unknown 08/01/2022 11:08 AM ENVIRONMENTAL CONSERVATION PROFESSOR 08/01/2022 11:13 AM ENVIRONMENTAL CONSERVATION PROFESSOR Amanda Ibrahim MD LAB - BLOOD ORDERABLES Christina l Result LABORATORY [facility] [address] (1st floor, no room number) [place] [id number], [facility] [phone] * TSH with free T4 reflex (07/19/2022 1:01 PM ENVIRONMENTAL CONSERVATION PROFESSOR) TSH 1.91 0.30 - 4.20 uIU/mL 07/19/2022 1:44 PM ENVIRONMENTAL CONSERVATION PROFESSOR LABORATORY Blood STRUCTURE OF LEFT UPPER LIMB / Unknown Venipuncture / Unknown 07/19/2022 1:01 PM ENVIRONMENTAL CONSERVATION PROFESSOR 07/19/2022 1:01 PM ENVIRONMENTAL CONSERVATION PROFESSOR Amanda Ibrahim MD LAB - BLOOD ORDERABLES Christina l Result LABORATORY [facility] [address] (1st floor, no room number) [place] [address], [facility] [phone] * (ABNORMAL) Lipid panel reflex to direct LDL Fasting (02/28/2020 11:36 AM CDT) Cholesterol 188 <200 mg/dL 02/29/2020 8:55 AM CDT [facility] Triglycerides 67 <150 mg/dL 02/29/2020 8:57 AM CDT [facility] Comment:Fasting specimen HDL Cholesterol 69 >39 mg/dL 0 8:55 AM CDT [facility] LDL Cholesterol Calculated 106(H) <100 mg/dL 02/29/2020 8:57 AM CDT [facility] Comment: Above desirable: 100-129 mg/dl Borderline High: 130-159 mg/dL High: 160-189 mg/dL Very high: >189 mg/dl Non HDL Cholesterol 119 <130 mg/dL 02/29/2020 8:55 AM CDT [facility] Blood specimen (specimen) 02/28/2020 11:36 AM CDT 02/28/2020 11:37 AM CDT us Bryon Bell MD LAB - BLOOD ORDERABLES Final Result [facility] [address] [place] [address] * COLONOSCOPY - HIM SCAN (03/10/2014 12:00 AM CDT) 03/10/2014 us Provider Outside PROCEDURES Final Result from Last 3 Months or Most Recently Relevant to Health Maintenance Insurance [facility] [place] BLUE MEDICARE [facility] [place] MEDIC[facility] [place]UE Care Teams Site Operations Manager Relationship Specialty Start Date End Date Vitaliy Solo MD [facility] [address] [place] [address] PCP - General Emergency Medicine 07/19/22 Franny Shrestha PA-C [address] [facility] [address] [place] [address] Physician Notch Grinder Urology 10/01/21 [place] [address] [place] [address] Family Medicine 08/27/22 [facility] [address] [place] [address] Assigned PCP 10/28/23
--- OUTSIDE RECORDS SUMMARY | 2024-08-02 10:55 | XMS_ITS | Clinical Summary ---
Author Organization [employer] Address [place], [place] [address] Care Team Providers Care Banquet Steward Name Role Phone Vitaliy Solo MD Primary Care Provider Allergies No known active allergies Medications VITAMIN A/VITAMIN D3 (NATURAL VITAMIN D ORAL) Take by mouth. Active clotrimazole-beta methasone cream (LOTRISONE) 1-0.05 % cream Apply small amount to affected area(s) 2 times daily 45 g 1 03/18/2013 6:10 PM CDT 3 Active amiodarone (CORDARONE) 200 mg tablet Take 200 mg by mouth once daily. Active apixaban (Eliquis) 5 mg tabletIndications :Persistent atrial fibrillation (HC) TAKE 1 TABLET (5 MG) BY MOUTH 2 TIMES DAILY 180 Tablet 3 4 Active lisinopriL (PRINIVIL; ZESTRIL) 40 mg tabletIndications :Hypertension Take 1 Tablet (40 mg) by mouth once daily. 90 Tablet 3 4 Active spironolactone (ALDACTONE) 25 mg tabletIndications :Hypertension Take 1 Tablet (25 mg) by mouth once daily. 90 Tablet 3 4 Active metoprolol succinate (TOPROL XL) 25 mg Sustained-Release tabletIndications :Hypertension Take 1 Tablet (25 mg) by mouth once daily. 90 Tablet 3 4 Active carvediloL (COREG) 6.25 mg tabletIndications :Cardiomyopathy, unspecified type (HC) Take 1 Tablet (6.25 mg) by mouth two times daily with meals. 60 Tablet 11 5 Active Active Problems Problem Noted Date Diagnosed Date Chest pain 01/23/2013 Encounters Date Type Department Care Team Description 07/15/2024 10:30 AM DAG COATER Office Visit [facility] & [address] [address] Kirit Light MD from Last 3 Months Social History Tobacco [...] Recorded Sex Assigned at Not on file Legal Sex Male 8:17 PM DAG COATER Gender Identity Not on file Sexual Orientation Not on file Obstetrics History Last Filed Vital Signs Vital Sign Reading Time Taken Comments Blood Pressure 139/75 01/23/2013 1:06 PM CDT Pulse 59 01/23/2013 1:06 PM CDT Temperature 36.6 C (97.9 F) 01/23/2013 1:06 PM CDT Respiratory Rate 16 01/23/2013 1:06 PM CDT [...] on same day) for age 18+ 1962 Pneumococcal series for age 50+ (1 of 2 - PCV) 1963 Tetanus booster 1964 Zoster (shingles) series for age 50+ (1 of 2) 1994 Medicare Wellness for age 65+ 2009 RSV vaccine for adults or pr egnancy (1 - 1-dose 75+ series) 2019 COVID-19 vaccine series (2023- season) 2024 02/19/2021, 01/22/2021 Influenza for age 65+ 03/07/2024 Insurance [place] MR PB ONLY [place] HB ONLY MEDICARE PART A HB ONLY MEDICARE PART B HB ONLY Advance Directives * Full Code (Latest Code Status on File) Date Activated Date Inactivated Comments 01/23/2013 1:38 AM 01/23/2013 4:48 PM Care Teams Banquet Steward Relationship Specialty Start Date End Date Vitaliy Solo MD [address] [place] [address] PCP - General Internal Medicine 11/10/23
--- OUTSIDE RECORDS SUMMARY | 2024-08-02 10:55 | XMS_ITS | Encounter Summary ---
Author Organization [place] Address [address] [place] [address] Care Team Providers Care Inhalation Therapy Aides Teacher Name Role Phone Franny Shrestha PA-C Unavailable [phone] Vitaliy Solo MD Primary Care Provider Bryon Bell MD Unavailable [phone] Franny Shrestha PA-C Unavailable [phone] Amanda Ibrahim MD Unavailable Unavailabl e [facility] Unavailabl e Encounter Details Date Type Department Care Team (Late st Contact Info) Description 11/13/2023 MyC Medical Advice [facility] [id number] [place] [phone] Yajaira Cedeño, MANAGER REQUIREMENTS Social History Tobacco Use Types Packs/Day Years [...] PM CDT 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 Gender Identity Male 03/03/2021 2:33 PM CDT Sexual Orientation Straight 03/03/2021 2: 33 PM CDT documented as of this encounter Plan of Treatment Not on file documented as of this encounter Visit Diagnoses Not on filedocumented in this encounter Care Teams Inhalation Therapy Aides Teacher Relationship Specialty Start Date End Date Vitaliy Solo MD [facility] [address] [place] [address] PCP - General Emergency Medicine 07/19/22 Franny Shrestha PA-C [address] [facility] [address] [place] [address] Physician Coal Gasification Technician Urology 10/01/21 [place] [address] [facility] [place] [place] [address] Family Medicine 08/27/22 Franny Shrestha PA-C [address] [facility] [address] [place] [address] Assigned Surgical Provider 12/21/22 05/28/24 Amanda Ibrahim MD Assigned Heart and Vascular Provider 01/18/23 01/26/24 [facility] [address] [place] [address] Assigned PCP 10/28/23 documented as of this encounter
--- OUTSIDE RECORDS SUMMARY | 2024-08-02 10:55 | XMS_ITS | Encounter Summary ---
Author Name [facility] Organization [facility] [place] [facility] [place] Address [address] [place] [address] Care Team Providers Care Airplane Electrical Repairer Name Role Phone CARLYN SOTOMAYOR Primary Care [...] Tobar's Name Patient's Relationship to Policy Tobar [facility] (WNR) MEDICARE ADVANTAGE [facility] (WNR) Jul 07, 2016 [id number] [phone] KWAN ARZATE PATIENT Selected Encounter This section includes the information on record at [place] for the Encounter. Date/Time Encounter Type Encounter Description Reason Provider Source Jan 30, 2024 08:45 AM OFF/OP EST NOVEMBER X REQ PHY/QHP AUDIOLOGY ICD-10-CM Z01.118 Encntr for exam of ears and hearing w oth abnormal findings LARA MURRAY IHMadalyn Encounter Template Text not used by [place] Assessments - Encounter Diagnoses This section includes the primary and secondary diagnoses documented for the Encounter. Date/Time Primary/Secondary Diagnosis Diagnosis Name Provider Source Jan 30, 2024 11:25 AM PRIMARY Encntr for exam of ears and hearing w oth abnormal findings SHELL SNOWDEN [facility] Jan 30, 2024 11:25 AM SECONDARY Encounter for fitting and adjustment of hearing aid SHELL SNOWDEN [facility] Jan 30, 2024 11:25 AM SECONDARY Foreign body in left ear, initial encounter SANDI OCHOA [facility] Jan 30, 2024 11:25 AM SECONDARY Impacted cerumen, bilateral RUSANDI BAUER [facility] Jan 30, 2024 11:25 AM SECONDARY Sensorineural hearing loss, bilateral SHELL SNOWDEN [facility] Social History: Smoking Status (Most current) and Tobacco Use (All prior to encounter date) This section includes the most current, and the historical, smoking and tobacco- related health factors from the [place] facility where the Encounter took place. Current Smoking Status This section includes the most current smoking, or tobacco-related health factor, from the [place] facility where the Encounter took place. Date/Time Current Smoking Status Comment Facil ity Oct 21, 2018 09:57 AM VA-TOBACCO NEVER USED [facility] Encounter Notes: All associated encounter notes This [...] VISIT: THERAPEUTIC:HEARING AID EVALUATION, 60 minutes: HISTORY: was seen in the clinic today for [...] is NOT Service Connected for Hearing Loss/Tinnitus. Priddy was unaccompanied. The currently wears the follow hearing aids: Hearing Aids (right and left): Fit on 05/21/2023 Make: Oticon Model: Real 1 miniRITE-R (L), CROS PX (R) Acoustics: 2(60) receivers, 8mm open schafer domes Serial #s: [id number] (L), [id number] (R) Accessories: EduMic (ordered 01/30/2024) [...] headphones Reliability: good RIGHT EAR (Hz) 250 300 776 4341 1500 2000 3000 4000 6000 8000 Air: see Audiogram display under Tools->Audiology->ROES or see GINA database. Bone: see Audiogram display under Tools->Audiology->ROES or see GINA database. LEFT EAR (Hz) 250 845 681 0931 1500 2000 3000 4000 6000 8000 Air: see Audiogram display under Tools->Audiology->ROES or see GINA database. Bone: see Audiogram display under Tools->Audiology->ROES or see GINA database. - All thresholds are in dB HL * = Masked Threshold SPEECH RECOGNITION THRESHOLD (SRT): Spondees Right: 65 dB HL Left: 15 dB HL Pure tone results were consistent with speech bus person dishwasher thresholds. WORD RECOGNITION: /W-22 word list Right [...] Hz, mild sloping to moderate SNHL from 3863-4716 Hz. NEEDS ASSESSMENT FOR ASSISTIVE LISTENING DEVICE (ALD): Given the 's degree/severity of hearing loss, discussed incorporating an accessory device to improve hearing and communication abilities in adverse listening environments. A needs assessment for an ALD was completed today. The Priddy would benefit from a remote microphone to [...] open schafer domes, modifications to hearing aids [id number] (L), [id number] (R) FITTING/ORIENTATION/REPROGRA MMING: - The 's aids were connected to the software and a firmware update was completed for the left (no update for right CROS). - The endorsed good sound quality. PLAN: - 8mm Oticon domes were ordered for the Priddy in [facility]. - An EduMic was ordered for the Priddy and can be mailed to his address. - Regular follow up recommended to monitor for changes in hearing, or as medically indicated. - Priddy is in agreement with this plan. TECH NOTE: - Please mail EduMic to the when it arrives. /donnell/ Ronald Hawkins Ph.D. Water Reuse Program Manager Chief, Audiology Signed: 01/30/2024 12:20 for SHELL SNOWDEN Audiology Student /donnell/ Ronald Hawkins Ph.D. Water Reuse Program Manager Chief, Audiology Cosigned: 01/30/2024 12:20 LARA MURRAY [facility] Jan 30, 2024 09:10 AM AUDIOLOGY NOTE: [...] PRACTICAL NURSE Signed: 01/30/2024 15:43 SANDI OCHOA [facility]
--- OUTSIDE RECORDS SUMMARY | 2024-08-02 10:55 | XMS_ITS | Encounter Summary ---
Author Organization [place] Address [address] [place] [address] Care Team Providers Care Food Science Professor Name Role Phone Page, Nikki Vega RN Unavailable Unavailable Bryon Bell MD Primary Care Provider [phone] Bryon Bell MD Unavailable [phone] Laureen Dye APRN FIELD SALES MANAGER Unavailable [phone] Franny Shrestha PA-C Unavailable Franny Shrestha PA-C Unavailable Anyi Broderick MD Unavailable Bryon Bell MD Unavailable Anyi Broderick MD Unavailable Vitaliy Solo MD Primary Care Provider Bryon Bell MD Unavailable [phone] Anyi Broderick MD Unavailable Aimee Mascorro MD Unavailable [phone] Franny Shrestha PA-C Unavailable Amanda Ibrahim MD [facility] Unavailabl e Reason for Visit * Reason Onset Date Comments MyChart Communication 10/01/2021 KRAIG daley ch - results Encounter Details Date Type Department Care Team (Latest Contact Info) Description 10/01/[address] 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 Letter sent- [facility] will monitor for f/u Nikki Pierre RN * Telephone Encounter - Nikki Pierre RN - 10/05/2021 12:18 PM CDT LM for call back - See below Nikki Pierre RN documented in this encounter Plan of Treatment Not on file documented as of this encounter Visit Diagnoses Not on filedocumented in this encounter Care Teams Food Science Professor Relationship Specialty Start Date End Date Bryon Bell MD PCP - General Family Medicine 03/06/21 05/05/22 Vitaliy Solo MD [facility] & [facility] [address] [place] [address] PCP - General Emergency Medicine 07/19/22 Nikki Pierre, RN Personal Advocate & Liaison (PAL) Family Medicine 03/06/21 03/25/22 [place] [address] [place] [address] Assigned PCP 03/11/21 01/18/22 Laureen Dye APRN FIELD SALES MANAGER [address] [place] [address] Assigned Heart and Vascular Provider 05/27/21 01/17/23 Franny Shrestha PA-C [address] [place] [address] Physician Water Treatment Operator Urology 10/01/21 Franny Shrestha PA-C [address] [place] [address] Assigned Surgical Provider 12/29/21 11/22/22 [place] [address] [place] [address] Assigned PCP 01/19/22 03/08/22 [place] [address] [place] [address] Assigned PCP 03/09/22 03/22/22 [place] [address] [place] [address] Assigned PCP 03/23/22 06/21/22 [place] [address] [place] [address] Family Medicine 08/27/22 [place] [address] [place] [address] Assigned PCP 08/31/22 10/27/23 Aimee Mascorro MD [facility] HILGER [address], [address] [place] [address] Assigned Surgical Provider 11/23/22 12/20/22 Franny Shrestha PA-C [address] [place] [address] Assigned Surgical Provider 12/21/22 05/28/24 Amanda Ibrahim MD Assigned Heart and Vascular Provider 01/18/23 01/26/24 [facility] [address] [place] [address] Assigned PCP 10/28/23 documented as of this encounter
--- OUTSIDE RECORDS SUMMARY | 2024-08-02 10:55 | XMS_ITS | Encounter Summary ---
Author Organization [place] Address [address] [place] [address] Care Team Providers Care Stock Sorter Name Role Phone Page, Nikki Vega RN Unavailable Unavailable Bryon Bell MD Primary Care Provider [phone] Bryon Bell MD Unavailable [phone] Laureen Dye APRN BOARD CERTIFIED BEHAVIORAL ANALYST Unavailable [phone] Franny Shrestha PA-C Unavailable Franny Shrestha PA-C Unavailable Anyi Broderick MD Unavailable Bryon Bell MD Unavailable [phone] Anyi Broderick MD Unavailable Vitaliy Solo MD Primary Care Provider Bryon Bell MD Unavailable [phone] Anyi Broderick MD Unavailable Aimee Mascorro MD Unavailable [phone] Franny Shrestha PA-C Unavailable Amanda Ibrahim MD 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 SPECIALIST Gender Identity Male 03/03/2021 2:33 PM CDT Sexual Orientation Straight 03/03/2021 2: 33 PM CDT documented as of this encounter Miscellaneous Notes * Telephone Encounter - [place] Chapa - 08/21/2021 3:18 PM CST [facility] Call Center Phone Message May a detailed message be left on voicemail: yes Reason for Call: Appointment Intake Referring Provider Name: Laureen Dye Diagnosis and/or Symptoms: Secondary cardiomyopathy (H) Benign essential hypertension Action Taken: Message routed to: Other: [facility] adult cardiology Travel Screening: Not Applicable Please place orders per dictation so pt can schedule appts CARE SPECIALIST documented in this encounter Plan of Treatment Not on file documented as of this encounter Visit Diagnoses Not on filedocumented in this encounter Care Teams Stock Sorter Relationship Specialty Start Date End Date Bryon Bell MD PCP - General Family Medicine 03/06/21 05/05/22 Vitaliy Solo MD [facility] [address] [place] [address] PCP - General Emergency Medicine 07/19/22 Nikki Pierre, RN Personal Advocate & Liaison (PAL) Family Medicine 03/06/21 03/25/22 [place] [address] [place] [address] Assigned PCP 03/11/21 01/18/22 Laureen Dye APRN BOARD CERTIFIED BEHAVIORAL ANALYST [address] [place] [address] Assigned Heart and Vascular Provider 05/27/21 01/17/23 Franny Shrestha PA-C [address] [place] [address] Physician Historiography Teacher Urology 10/01/21 Franny Shrestha PA-C [address] [place] [address] Assigned Surgical Provider 12/29/21 11/22/22 [place] [address] [place] [address] Assigned PCP 01/19/22 03/08/22 [place] [address] [place] [address] Assigned PCP 03/09/22 03/22/22 [place] [address] [place] [address] Assigned PCP 03/23/22 06/21/22 [place] [address] [place] [address] Family Medicine 08/27/22 [place] [address] [place] [address] Assigned PCP 08/31/22 10/27/23 Aimee Mascorro MD [facility] [address], [address] [place] [address] Assigned Surgical Provider 11/23/22 12/20/22 Franny Shrestha PA-C [address] [place] [address] Assigned Surgical Provider 12/21/22 05/28/24 Amanda Ibrahim MD Assigned Heart and Vascular Provider 01/18/23 01/26/24 [facility] [address] [place] [address] Assigned PCP 10/28/23 documented as of this encounter
--- OUTSIDE RECORDS SUMMARY | 2024-08-02 10:56 | XMS_ITS | Continuity of Care Document ---
Author Organization [facility] Address [address] [place] [address] Phone Care Team Providers Care Civil Division Commander Deputy Sheriff Name Role Phone Claudia WHEATLEY, PhD, Alexy Unavailable Unavai lable Allergies, Adverse Reactions, Alerts Substance Reaction Status Criticality No Known Allergies Active No Inform ation Medications Medication Instructions Dosage Effective Dates (start - stop) Status Comments FUROSEMIDE (unknown strength) Not Available - Active METOPROLOL SUCCINATE (unknown strength) Not Available - Active ELIQUIS (unknown strength) Not Available - Active LISINOPRIL (unknown strength) Not Available - Active VITAMIN C (unknown strength) Not Available - Active MECLIZINE HCL (unknown strength) Not Available - Active CALCIUM 500-VIT D3 (unknown strength) Not Available - Active AMIODARONE HCL (unknown strength) Not Available - Active Procedures Procedure Date Office/Outpatient Visit,Est, Mod 2023 Office/Outpatient Visit,New, Mod 2023 Advance Directives Directive Yes / No Effective Date File Name No Information Encounters Encounter Description Practice Location Reason(s) For Visit Diagnoses Date Provider Providers Copied on Encounter [facility], [address], [place], [id number], [place] tel:[phone] [facility] No Information Claudia Tracey. [facility], [address], [employer], [address], [place]. tel: [phone] Office/Outpat ient Visit,Est, Mod [facility], [address], [place], [id number], [place] tel:[phone] [facility] Spinal stenosis, lumbar region with neurogenic claudication Claudia Tracey. [facility], [address], [place], [address], [place]. tel:[phone] Referring Provider: [facility] [address] [place], [address]. tel:[phone] Office/Outpat ient Visit,New, Mod [facility], [address], [place], [place], [id number], [place] tel:[phone] [facility] Spinal stenosis, lumbar region with neurogenic claudication Claudia Tracey. [facility], [address], [place], [address], [place]. tel:[phone] Referring Provider: [facility] [address] [place], [address]. tel:[phone] Family History Family Member Type Diagnosis Age At Onset Mother Problem (finding) Stroke Sister Problem (finding) Cancer, unknown type Father Problem (finding) Cardiovascular disease Sister Problem (finding) Stroke Payers Payer name Insurance type Covered libertarian ID Mauricio rivers(s) [facility] [id number] Medicare [facility] [id number] 1 Social History Type Description Quantity Date [...]
--- OUTSIDE RECORDS SUMMARY | 2024-08-02 10:56 | XMS_ITS | Encounter Summary ---
Author Organization [place] Address [address] [place] [address] Care Team Providers Care C Developer Name Role Phone Franny Shrestha PA-C Unavailable [phone] Vitaliy Solo MD Primary Care Provider Bryon Bell MD Unavailable [phone] Anyi Broderick MD Unavailable Franny Shrestha PA-C Unavailable [phone] Amanda Ibrahim MD Un[facility]avail[facility] e Reason for Visit * Reason Onset Date Comments Medication Request 08/08/2023 lisinopril (Z ESTRIL) 40 MG tablet Encounter Details Date Type Department Care Team (Late st Contact Info) Description 08/08/2023 [facility] [address] [address] Amanda Ibrahim MD Medication Request [...] PM CDT 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 Tolbert Pharmacy: [facility] - [address] Date medication is needed: 08/08/23 Pharmacy had not heard back on refill request and the patient is completely out of this prescription Action Taken: Other: cardiology Travel Screening: Not Applicable Thank you! [facility] ESS ASSISTANT documented in this encounter Plan of Treatment Not on file documented as of this encounter Visit Diagnoses Not on filedocumented in this encounter Care Teams C Developer Relationship Specialty Start Date End Date Vitaliy Solo MD [facility] [address] [place] [address] PCP - General Emergency Medicine 07/19/22 Franny Shrestha PA-C [address] [facility] [address] [place] [address] Physician Test Fixture Designer Urology 10/01/21 [place] [address] [place] [address] Family Medicine 08/27/22 [place] [address] [address] [address] Assigned PCP 08/31/22 10/27/23 Franny Shrestha PA-C [address] [place] [address] [place] [address] Assigned Surgical Provider 12/21/22 05/28/24 Amanda Ibrahim MD Assigned Heart and Vascular Provider 01/18/23 01/26/24 [facility] [address] [place] [address] Assigned PCP 10/28/23 documented as of this encounter
--- OUTSIDE RECORDS SUMMARY | 2024-08-02 10:56 | XMS_ITS | Encounter Summary ---
Author Organization [facility] Address [address] [place] [address] Care Team Providers Care Lozenge Maker Helper Name Role Phone Laureen Dye APRN TECHNICIANS AND TRADES WORKERS Unavailable [phone] Franny Shrestha PA-C Unavailable [phone] Franny Shrestha PA-C Unavailable [phone] Vitaliy Solo MD Primary Care Provider Bryon Bell MD Unavailable [phone] Anyi Broderick MD Unavailable Aimee Mascorro MD Unavailable [phone] Franny Shrestha PA-C Unavailable Amanda Ibrahim MD Unavailable Unavailabl e [facility] Unavailabl e Encounter Details Date Type Department Care Team (Late st Contact Info) Description 11/03/2022 MyC Medical Advice [facility] [address] [place] [phone] Amanda Ibrahim MD Social History Tobacco Use Types Packs/Day Years Used Date Smoking Tobacco: Never Smokeless Tobacco: Never Alcohol Use Standard Drinks/Week Comments Yes 0 (1 standard drink = 0.6 oz pur e alcohol) occ PHQ-2 Answer Date Recorded PHQ-2 Score 0 12/24/2021 Sex and Gender Information Value Date Recorded Sex Assigned at Male 03/03/2021 2:33 PM CDT 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 DIRECTOR OF CONSTRUCTION Gender Identity Male 03/03/2021 2:33 PM CDT [...] on filedocumented in this encounter Care Teams Lozenge Maker Helper Relationship Specialty Start Date End Date Vitaliy Solo MD [facility] [address] [place] [address] PCP - General Emergency Medicine 07/19/22 Laureen Dye, HEALTH SCREENER TECHNICIANS AND TRADES WORKERS [address] [place] [address] Assigned Heart and Vascular Provider 05/27/21 01/17/23 Franny Shrestha PA-C [address] [place] [address] Physician Shipping And Receiving Operator Urology 10/01/21 Franny Shrestha PA-C [address] [facility] [address] [place] [address] Assigned Surgical Provider 12/29/21 11/22/22 [place] [address] [place] [address] Family Medicine 08/27/22 [place] [address] [place] [address] Assigned PCP 08/31/22 10/27/23 Aimee Mascorro MD [facility] [address], [address] [place] [address] Assigned Surgical Provider 11/23/22 12/20/22 Franny Shrestha PA-C [address] [place] [address] Assigned Surgical Provider 12/21/22 05/28/24 Amanda Ibrahim MD Assigned Heart and Vascular Provider 01/18/23 01/26/24 [facility] [address] [place] [address] Assigned PCP 10/28/23 documented as of this encounter
--- OUTSIDE RECORDS SUMMARY | 2024-08-02 10:56 | XMS_ITS | Encounter Summary ---
Author Organization [place] Address [address] [place] [address] Care Team Providers Care Saw Feeder Name Role Phone Laureen Dye APRN DIRECTOR OF SPORTS MEDICINE Unavailable [phone] Franny Shrestha PA-C Unavailable [phone] Franny Shrestha PA-C Unavailable [phone] Vitaliy Solo MD Primary Care Provider Bryon Bell MD Unavailable [phone] Anyi Broderick MD Unavailable Aimee Mascorro MD Unavailable [phone] Franny Shrestha PA-C Unavailable Amanda Ibrahim MD Unavailable Unavailabl e [facility] Unavailabl e Encounter Details Date Type Department Care Team (Late st Contact Info) Description 10/11/2022 MyC Medical Advice [facility] [address] [place] [phone] Amanda Ibrahim MD Social History Tobacco Use Types Packs/Day Years Used Date Smoking Tobacco: Never Smokeless Tobacco: Never Alcohol Use Standard Drinks/Week Comments Yes 0 (1 standard drink = 0.6 oz pur e alcohol) occ PHQ-2 Answer Date Recorded PHQ-2 Score 0 12/24/2021 Sex and Gender Information Value Date Recorded Sex Assigned at Male 03/03/2021 2:33 PM CDT 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 Gender Identity Male 03/03/2021 2:33 PM CDT Sexual Orientation Straight 03/03/2021 2: 33 PM CDT documented as of this encounter Plan of Treatment Not on file documented as of this encounter Visit Diagnoses Not on filedocumented in this encounter Care Teams Saw Feeder Relationship Specialty Start Date End Date Vitaliy Solo MD [facility] [address] [place] [address] PCP - General Emergency Medicine 07/19/22 Laureen Dye, EMBROIDERY SUPERVISOR DIRECTOR OF SPORTS MEDICINE [address] [place] [address] Assigned Heart and Vascular Provider 05/27/21 01/17/23 Franny Shrestha PA-C [address] [place] [address] Physician Manager Compensation Urology 10/01/21 Franny Shrestha PA-C [address] [place] [address] Assigned Surgical Provider 12/29/21 11/22/22 [place] [address] [place] [address] Family Medicine 08/27/22 [place] [address] [place] [address] Assigned PCP 08/31/22 10/27/23 Aimee Mascorro MD [facility] [address], [address] [place] [address] Assigned Surgical Provider 11/23/22 12/20/22 Franny Shrestha PA-C [address] [place] [address] Assigned Surgical Provider 12/21/22 05/28/24 Amanda Ibrahim MD Assigned Heart and Vascular Provider 01/18/23 01/26/24 [facility] [address] [place] [address] Assigned PCP 10/28/23 documented as of this encounter
--- OUTSIDE RECORDS SUMMARY | 2024-08-02 10:56 | XMS_ITS | Encounter Summary ---
Author Organization [facility] Address [address] [place] [address] Care Team Providers Care Landscape And Yardwork Laborer Name Role Phone Page, Nikki Vega RN Unavailable Unavailable Bryon Bell MD Primary Care Provider + [phone] Bryon Bell MD Unavailable [phone] Amanda Ibrahim MD Unavailable Unavailabl [facility] APRN [facility] Unavailable [phone] Franny Shrestha PA-C Unavailable [phone] Franny Shrestha PA-C Unavailable [phone] Anyi Broderick MD Unavailable Bryon Bell MD Unavailable [phone] Anyi Broderick MD Unavailable Vitaliy Solo MD Primary Care Provider Bryon Bell MD Unavailable [phone] Anyi Broderick MD Unavailable Aimee Mascorro MD Unavailable [phone] Franny Shrestha PA-C Unavailable [phone] Amanda Ibrahim MD Un[facility] Reason for Visit * Reason Onset Date Comments MyChart Communication 05/08/2021 Encounter Details Date Type Department Care Team (Late st Contact Info) Description 05/08/2021 [facility] [id number] [place] [phone] [place] [address] [place], [place] [phone] MyChart Communication Social History Tobacco Use Types [...] PM CDT 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 CLINICAL TEAM LEAD Gender Identity Male 03/03/2021 2:33 PM CDT [...] on filedocumented in this encounter Care Teams Landscape And Yardwork Laborer Relationship Specialty Start Date End Date Bryon Bell MD PCP - General Family Medicine 03/06/21 05/05/22 Vitaliy Solo MD [facility] [address] [place] [address] PCP - General Emergency Medicine 07/19/22 Nikki Pierre RN Personal Advocate & Liaison (PAL) Family Medicine 03/06/21 03/25/22 [place] [address] [place] [address] Assigned PCP 03/11/21 01/18/22 Amanda Ibrahim MD Assigned Heart and Vascular Provider 04/22/21 05/26/21 Hardik Laureen BergmanGUS AMORTIZATION CLERK [address] [place] [address] Assigned Heart and Vascular Provider 05/27/21 01/17/23 Franny Shrestha PA-C [address] [place] [address] Physician Dividend Clerk Urology 10/01/21 Franny Shrestha PA-C [address] [place] [address] Assigned Surgical Provider 12/29/21 11/22/22 [place] [address] [place] [address] Assigned PCP 01/19/22 03/08/22 [place] [address] [place] [address] Assigned PCP 03/09/22 03/22/22 [place] [address] [place] [address] Assigned PCP 03/23/22 06/21/22 [place] [address] [place] [address] Family Medicine 08/27/22 [place] [address] [address] [place] [address] Assigned PCP 08/31/22 10/27/23 Aimee Mascorro MD [facility] [address], [address] [place] [address] Assigned Surgical Provider 11/23/22 12/20/22 Franny Shrestha PA-C [address] [place] [address] Assigned Surgical Provider 12/21/22 05/28/24 Amanda Ibrahim MD Assigned Heart and Vascular Provider 01/18/23 01/26/24 [facility] [address] [place] [address] Assigned PCP 10/28/23 documented as of this encounter
--- OUTSIDE RECORDS SUMMARY | 2024-08-02 10:56 | XMS_ITS | Encounter Summary ---
Author Organization [facility] Address [address] [place] [address] Care Team Providers Care Infirmary Attendant Name Role Phone Page, Nikki Vega RN Unavailable Unavailable Bryon Bell MD Primary Care Provider + [phone] Bryon Bell MD Unavailable [phone] Amanda Ibrahim MD Unavailable Unavailabl [facility]N [facility] Unavailable [phone] Franny Shrestha PA-C Unavailable [phone] Franny Shrestha PA-C Unavailable [phone] Anyi Broderick MD Unavailable Bryon Bell MD Unavailable [phone] Anyi Broderick MD Unavailable Vitaliy Solo MD Primary Care Provider Bryon Bell MD Unavailable [phone] Anyi Broderick MD Unavailable Aimee Mascorro MD Unavailable [phone] Franny Shrestha PA-C Unavailable [phone] Amanda Ibrahim MD Un[facility] e Reason for Visit * Reason Onset Date Comments MyChart Communication 05/03/2021 Encounter Details Date Type Department Care Team (Late st Contact Info) Description 05/03/2021 [facility] [address] [place] [phone] [place] [address] [address] [place], [place] [phone] MyChart Communication Social History Tobacco Use Types [...] PM CDT 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 FINANCIAL SERVICES MANAGER Gender Identity Male 03/03/2021 2:33 PM CDT [...] on filedocumented in this encounter Care Teams Infirmary Attendant Relationship Specialty Start Date End Date Bryon Bell MD PCP - General Family Medicine 03/06/21 05/05/[address] [facility] [address] [place] [address] PCP - General Emergency Medicine 07/19/22 Nikki Pierre RN Personal Advocate & Liaison (PAL) Family Medicine 03/06/21 03/25/22 [place] [address] [place] [address] Assigned PCP 03/11/21 01/18/22 Amanda Ibrahim MD Assigned Heart and Vascular Provider 04/22/21 05/26/21 Hardik Laureen BergmanGUS LOGGING EQUIPMENT MECHANIC [address] [place] [address] Assigned Heart and Vascular Provider 05/27/21 01/17/23 Franny Shrestha PA-C [address] [place] [address] Physician Shop Teacher Urology 10/01/21 Franny Shrestha PA-C [address] [place] [address] Assigned Surgical Provider 12/29/21 11/22/22 [place] [address] [place] [address] Assigned PCP 01/19/22 03/08/22 [place] [address] [place] [address] Assigned PCP 03/09/22 03/22/22 [place] [address] [place] [address] Assigned PCP 03/23/22 06/21/22 [place] [address] [place] [address] Family Medicine 08/27/22 [place] [address] [address] [place] [address] Assigned PCP 08/31/22 10/27/23 Aimee Mascorro MD [facility] [address], [address] [place] [address] Assigned Surgical Provider 11/23/22 12/20/22 Franny Shrestha PA-C [address] [place] [address] Assigned Surgical Provider 12/21/22 05/28/24 Amanda Ibrahim MD Assigned Heart and Vascular Provider 01/18/23 01/26/24 [facility] [address] [place] [address] Assigned PCP 10/28/23 documented as of this encounter
--- OUTSIDE RECORDS SUMMARY | 2024-08-02 10:56 | XMS_ITS | Encounter Summary ---
Author Organization [place] Address [address] [place] [address] Care Team Providers Care Magazine Hand Name Role Phone Laureen Dye APRN INTERNATIONAL ACCOUNTING MANAGER Unavailable [phone] Franny Shrestha PA-C Unavailable Franny Shrestha PA-C Unavailable [phone] Vitaliy Solo MD Primary Care Provider Bryon Bell MD Unavailable Anyi Broderick MD Unavailable Aimee Mascorro MD Unavailable [phone] Franny Shrestha PA-C Unavailable [phone] Amanda Ibrahim MD Unavailable Unavailabl e [facility] Unavailabl e Encounter Details Date Type Department Care Team (Late st Contact Info) Description 08/09/2022 MyC Medical Advice [facility] [address] [place] [address] Josie Rosa, RN Social History [...] CDT 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 DIRECTOR TELEVISION NEWS Gender Identity Male 03/03/2021 2:33 PM CDT Sexual Orientation Straight 03/03/2021 2: 33 PM CDT COVID-19 Exposure Response Date Recorded In the last 10 days, have yo u been in contact with someone who was confirmed or suspected to have Coronavirus/COVID-19? No / Unsure 08/01/2022 11:05 AM DIRECTOR TELEVISION NEWS documented as of this encounter Plan of Treatment Not on file documented as of this encounter Visit Diagnoses Not on filedocumented in this encounter Care Teams Magazine Hand Relationship Specialty Start Date End Date Vitaliy Solo MD [facility] [address] [place] [address] PCP - General Emergency Medicine 07/19/22 Laureen Dye, MANAGER EXCHANGE INTERNATIONAL ACCOUNTING MANAGER [address] [place] [address] Assigned Heart and Vascular Provider 05/27/21 01/17/23 Franny Shrestha PA-C [address] [place] [address] Physician Drywall Worker Urology 10/01/21 Franny Shrestha PA-C [address] [place] [address] Assigned Surgical Provider 12/29/21 11/22/22 [place] [address] [place] [address] Family Medicine 08/27/22 [place] [address] [place] [address] Assigned PCP 08/31/22 10/27/[address] [facility] [address], [address] [place] [address] Assigned Surgical Provider 11/23/22 12/20/22 Franny Shrestha PA-C [address] [place] [address] Assigned Surgical Provider 12/21/22 05/28/24 Amanda Ibrahim MD Assigned Heart and Vascular Provider 01/18/23 01/26/24 [facility] [address] [address] [address] Assigned PCP 10/28/23 documented as of this encounter
--- OUTSIDE RECORDS SUMMARY | 2024-08-02 10:56 | XMS_ITS | Encounter Summary ---
Author Organization [facility] Address [address] [place] [address] Care Team Providers Care Scratch Brusher Name Role Phone No Ref-Primary, Physician Primary Care Provider Bryon Bell MD Unavailable [phone] Bryon Bell MD Unavailable [phone] Anyi Broderick MD Unavailable Nikki Pierre RN Unavailable Unavailable Bryon Bell MD Primary Care Provider + [phone] Bryon Bell MD Unavailable [phone] Amanda Ibrahim MD Unavailable UnavailLaureen Doe APRN CREATIVE MANAGER Unavailable [phone] Franny Shrestha PA-C Unavailable [phone] Franny Shrestha PA-C Unavailable Anyi Broderick MD Unavailable Bryon Bell MD Unavailable [phone] Anyi Broderick MD Unavailable Vitaliy Solo MD Primary Care Provider Bryon Bell MD Unavailable [phone] Anyi Broderick MD Unavailable Aimee Mascorro MD Unavailable [phone] Franny Shrestha PA-C Unavailable Amanda Ibrahim MD Unavailable Unavailabl e [facility] e Encounter Details Date Type Department Care Team (Late st Contact Info) Description 08/28/2018 MyC Medical Advice [facility] [address] [place] [phone] [place] [address] [place] [address] Social History Tobacco Use Types Packs/Day Years Used Date Smoking Tobacco: Former Smokeless Tobacco: Never Alcohol Use Standard Drinks/Week Comments Yes 0 (1 standard drink = 0.6 oz pur e alcohol) PHQ-2 Answer Date Recorded PHQ-2 Score 0 08/21/2018 Sex and Gender Information Value Date Recorded Sex Assigned at Male 03/03/2021 2:33 PM CDT 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 Gender Identity Male 03/03/2021 2:33 PM CDT Sexual Orientation Straight 03/03/2021 2: 33 PM CDT documented as of this encounter Plan of Treatment Not on file documented as of this encounter Visit Diagnoses Not on filedocumented in this encounter Care Teams Scratch Brusher Relationship Specialty Start Date End Date No Ref-Primary, Physician PCP - General 08/14/18 03/05/21 [place] [address] [place] [address] PCP - Assigned PCP 07/30/18 09/08/18 Bryon Bell MD PCP - General Family Medicine 03/06/21 05/05/22 Vitaliy Solo MD [facility] [address] [place] [address] PCP - General Emergency Medicine 07/19/22 [place] [address] [place] [address] Assigned PCP 07/30/18 01/18/21 [place] [address] [place] [address] Assigned PCP 01/19/21 03/10/21 Nikki Pierre RN Personal Advocate & Liaison (PAL) Family Medicine 03/06/21 03/25/22 [place] [address] [place] [address] Assigned PCP 03/11/21 01/18/22 Amanda Ibrahim MD Assigned Heart and Vascular Provider 04/22/21 05/26/21 Laureen Dye APRN CREATIVE MANAGER [address] [place] [address] Assigned Heart and Vascular Provider 05/27/21 01/17/23 Franny Shrestha PA-C [address] [place] [address] Physician Project Developer Urology 10/01/21 Franny Shrestha PA-C [address] [place] [address] Assigned Surgical Provider 12/29/21 11/22/22 [place] [address] [place] [address] Assigned PCP 01/19/22 03/08/22 [place] [address] [place] [address] Assigned PCP 03/09/22 03/22/22 [place] [address] [place] [address] Assigned PCP 03/23/22 06/21/22 [place] [address] [place] [address] Family Medicine 08/27/22 [place] [address] [place] [address] Assigned PCP 08/31/22 10/27/23 Aimee Mascorro MD [facility] [address] [place] [address] Assigned Surgical Provider 11/23/22 12/20/22 Franny Shrestha PA-C [address] [place] [address] Assigned Surgical Provider 12/21/22 05/28/24 Amanda Ibrahim MD Assigned Heart and Vascular Provider 01/18/23 01/26/24 [facility] [address] [place] [address] Assigned PCP 10/28/23 documented as of this encounter
--- OUTSIDE RECORDS SUMMARY | 2024-08-02 10:56 | XMS_ITS | Encounter Summary ---
Author Organization [place] Address [address] [place] [address] Care Team Providers Care Public Records Officer Name Role Phone Laureen Dye APRN TOUR BUS DRIVER Unavailable [phone] Franny Shrestha PA-C Unavailable [phone] Franny Shrestha PA-C Unavailable Vitaliy Solo MD Primary Care Provider Bryon Bell MD Unavailable [phone] Anyi Broderick MD Unavailable Aimee Mascorro MD Unavailable [phone] Franny Shrestha PA-C Unavailable [phone] Amanda Ibrahim MD Unavailable Unavailabl e [facility] Unavailabl e Encounter Details Date Type Department Care Team (Late st Contact Info) Description 10/07/2022 MyC Medical Advice [facility] [address] [place] [phone] Amanda Ibrahim MD Social History Tobacco Use [...] 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 Gender Identity Male 03/03/2021 2:33 PM CDT Sexual Orientation Straight 03/03/2021 2: 33 PM CDT documented as of this encounter Plan of Treatment Not on file documented as of this encounter Visit Diagnoses Not on filedocumented in this encounter Care Teams Public Records Officer Relationship Specialty Start Date End Date Vitaliy Solo MD FORMERLY NAMED [facility] [address] [place] [address] PCP - General Emergency Medicine 07/19/22 Laureen Dye, RECHECKER TOUR BUS DRIVER [address] [place] [address] Assigned Heart and Vascular Provider 05/27/21 01/17/23 Franny Shrestha PA-C [address] [place] [address] Physician Manager Universal Urology 10/01/21 Franny Shrestha PA-C [address] [place] [address] Assigned Surgical Provider 12/29/21 11/22/22 [place] [address] [place] [address] Family Medicine 08/27/22 [place] [address] [place] [address] Assigned PCP 08/31/22 10/27/23 Aimee Mascorro MD [facility] [address], [address] [place] [address] Assigned Surgical Provider 11/23/22 12/20/22 Franny Shrestha PA-C [address] [place] [address] Assigned Surgical Provider 12/21/22 05/28/24 Amanda Ibrahim MD Assigned Heart and Vascular Provider 01/18/23 01/26/24 [facility] [address] [place] [address] Assigned PCP 10/28/23 documented as of this encounter
--- OUTSIDE RECORDS SUMMARY | 2024-08-02 10:56 | XMS_ITS | Encounter Summary ---
Author Organization [place] Address [address] [place] [address] Care Team Providers Care Career Manager Name Role Phone Laureen Dye APRN FAMILY PHYSICIAN Unavailable [phone] Franny Shrestha PA-C Unavailable [phone] Franny Shrestha PA-C Unavailable Vitaliy Solo MD Primary Care Provider Bryon Bell MD Unavailable [phone] Anyi Broderick MD Unavailable Aimee Mascorro MD Unavailable [phone] Franny Shrestha PA-C Unavailable Amanda Ibrahim MD Unavailable Unavailabl e [facility] Unavailabl e Encounter Details Date Type Department Care Team (Late st Contact Info) Description 09/15/2022 MyC Medical Advice [facility] [address] [place] [phone] Amanda Ibrahim MD Social History Tobacco Use [...] CDT 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 Unable to assess 08/27/2022 1:55 PM FOOD SERVICE documented as of this encounter Plan of Treatment Not on file documented as of this encounter Visit Diagnoses Not on filedocumented in this encounter Care Teams Career Manager Relationship Specialty Start Date End Date Vitaliy Solo MD [facility] [address] [place] [address] PCP - General Emergency Medicine 07/19/22 Laureen Dye, MEDICAL INSURANCE VERIFIER FAMILY PHYSICIAN [address] [place] [address] Assigned Heart and Vascular Provider 05/27/21 01/17/23 Franny Shrestha PA-C [address] [place] [address] Physician Director Internal Audit Urology 10/01/21 Franny Shrestha PA-C [address] [place] [address] Assigned Surgical Provider 12/29/21 11/22/22 [place] [address] [place] [address] Family Medicine 08/27/22 [place] [address] [place] [address] Assigned PCP 08/31/22 10/27/23 Aimee Mascorro MD [facility] [address], [address] [place] [address] Assigned Surgical Provider 11/23/22 12/20/22 Franny Shrestha PA-C [address] [place] [address] Assigned Surgical Provider 12/21/22 05/28/24 Amanda Ibrahim MD Assigned Heart and Vascular Provider 01/18/23 01/26/24 [facility] [address] [place] [address] Assigned PCP 10/28/23 documented as of this encounter
--- OUTSIDE RECORDS SUMMARY | 2024-08-02 10:56 | XMS_ITS | Continuity of Care Document ---
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 It does not include entries that were removed or entered in error. Problem Status Onset Date Problem Type Date of Resolution Comments Source Hearing loss Active Condition Oct 30, 2018 Entered By: ANNIE SOTOMAYOR Comment: Right ear [facility] Raised prostate specific antigen Active Condition [facility] Tinea cruris Active Condition [facility] Diagnosis: ICD-10-CM Z01.118 Encntr for exam of ears and hearing w oth abnormal findings Active Diagnosis [facility] Encounters Combined list of: 1) Encounters from Department of Veterans Affairs facilities going back up to thelast 18 months. 2) Encounters from the Department of [facility] facilities going back up to 280 months. Location Location Details Encounter Type Encounter Number Reason For Visit Attending Provider ADM Date DC Date Status Disposition Source [place] [facility] Outpatient Encounter [id number] 03/13 [facility] [place] [facility] Outpatient Encounter [id number] 04/16 [facility] [place] [facility] Outpatient Encounter [id number] 04/17 [facility] [place] [facility] Outpatient Encounter [id number] 04/18 [facility] [place] [facility] Outpatient Encounter [id number] 05/01 [facility] [place] [facility] Outpatient Encounter [id number] 05/01 [facility] [place] [facility] Outpatient Encounter [id number] 05/12 [facility] [place] [facility] Outpatient Encounter [id number] 05/12 [place] [facility] [place] [facility] Out[place] Encounter [id number] 10/07 [place] [facility] [place] [facility] Outpatient Encounter [id number] 10/07 [place] [facility] [place] [facility] Outpatient Encounter [id number] 01/05 [place] [facility] [place] [facility] OFF/OP EST NOVEMBER X REQ PHY/QHP [id number] Diagnos is: ICD-10- CM Z01.118 Encntr for exam of ears and hearing w oth abnorma l finding s
[facility] M[facility] AEL F 01/29 [place] [facility] Social History Combined list of available smoking, tobacco, and other social history from Department of Defense and Veterans Affairs facilities. Social History Type Response Date Comment Sourc e Tobacco smoking status [facility] NEVER USED 10/21/2018 [place] [facility]
--- OUTSIDE RECORDS SUMMARY | 2024-08-02 10:56 | XMS_ITS | Encounter Summary ---
Author Organization [place] Address [address] [place] [address] Care Team Providers Care Educational Assistant Teacher Name Role Phone Page, Nikki Vega RN Unavailable Unavailable Bryon Bell MD Primary Care Provider + [phone] Bryon Bell MD Unavailable [phone] Amanda Ibrahim MD Unavailable Unavailabl Laureen Dye APRN [facility] Unavailable [phone] Franny Shrestha PA-C Unavailable [phone] Franny Shrestha PA-C Unavailable [phone] Anyi Broderick MD Unavailable Bryon Bell MD Unavailable [phone] Anyi Broderick MD Unavailable Vitaliy Solo MD Primary Care Provider Bryon Bell MD Unavailable [phone] Anyi Broderick MD Unavailable Aimee Mascorro MD Unavailable [phone] Franny Shrestha PA-C Unavailable [phone] Amanda Ibrahim MD Un[facility] Encounter Details Date Type Department Care Team (Late st Contact Info) Description 04/19/2021 [facility] Medical Advice [facility] Heart [facility] [address] [facility] [address] [place] [address] Amanda [...] CDT 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 Gender Identity Male 03/03/2021 2:33 PM CDT [...] on filedocumented in this encounter Care Teams Educational Assistant Teacher Relationship Specialty Start Date End Date Bryon Bell MD PCP - General Family Medicine 03/06/21 05/05/22 Vitaliy Solo MD [facility] [address] [place] [address] PCP - General Emergency Medicine 07/19/22 Nikki Pierre, RN Personal Advocate & Liaison (PAL) Family Medicine 03/06/21 03/25/22 [place] [address] [place] [address] Assigned PCP 03/11/21 01/18/22 Amanda Ibrahim MD Assigned Heart and Vascular Provider 04/22/21 05/26/21 Hardik Laureen GUS Bergman GORE CUTTER [address] [place] [address] Assigned Heart and Vascular Provider 05/27/21 01/17/23 Franny Shrestha PA-C [address] [place] [address] Physician Triage Technician Urology 10/01/21 Franny Shrestha PA-C [address] [place] [address] Assigned Surgical Provider 12/29/21 11/22/22 [place] [address] [place] [address] Assigned PCP 01/19/22 03/08/22 [place] [address] [place] [address] Assigned PCP 03/09/22 03/22/22 [place] [address] [place] [address] Assigned PCP 03/23/22 06/21/22 [place] [address] [place] [address] Family Medicine 08/27/22 [place] [address] [place] [address] Assigned PCP 08/31/22 10/27/23 Aimee Mascorro MD [facility] [address], [address] [place] [address] Assigned Surgical Provider 11/23/22 12/20/22 Franny Shrestha PA-C [address] [place] [address] Assigned Surgical Provider 12/21/22 05/28/24 Amanda Ibrahim MD Assigned Heart and Vascular Provider 01/18/23 01/26/24 [facility] [address] [place] [address] Assigned PCP 10/28/23 documented as of this encounter
--- OUTSIDE RECORDS SUMMARY | 2024-08-02 10:56 | XMS_ITS | Encounter Summary ---
Author Organization [place] Address [address] [place] [address] Care Team Providers Care Wax Pattern Coater Name Role Phone Page, Nikki Vega RN Unavailable Unavailable Bryon Bell MD Primary Care Provider + [phone] Bryon Bell MD Unavailable [phone] Amanda Ibrahim MD Unavailable Unavailabl Laureen Dye APRN [facility] Unavailable [phone] Franny Shrestha PA-C Unavailable [phone] Franny Shrestha PA-C Unavailable [phone] Anyi Broderick MD Unavailable Bryon Bell MD Unavailable [phone] Anyi Broderick MD Unavailable Vitaliy Solo MD Primary Care Provider Bryon Bell MD Unavailable [phone] Anyi Broderick MD Unavailable Aimee Mascorro MD Unavailable [phone] Franny Shrestha PA-C Unavailable [phone] Amanda Ibrahim MD Un[facility] Encounter Details Date Type Department Care Team (Late st Contact Info) Description 04/19/2021 [facility] Medical Advice [facility] Heart [facility] [address] [facility] [address] [place] [address] Amanda Ibrahim MD Social History Tobacco [...] PM CDT 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 Gender Identity Male 03/03/2021 2:33 PM CDT [...] on filedocumented in this encounter Care Teams Wax Pattern Coater Relationship Specialty Start Date End Date Bryon Bell MD PCP - General Family Medicine 03/06/21 05/05/22 Vitaliy Solo MD [facility] [address] [place] [address] PCP - General Emergency Medicine 07/19/22 Nikki Pierre, RN Personal Advocate & Liaison (PAL) Family Medicine 03/06/21 03/25/22 [place] [address] [place] [address] Assigned PCP 03/11/21 01/18/22 Amanda Ibrahim MD Assigned Heart and Vascular Provider 04/22/21 05/26/21 Hardik Laureen GUS Bergman BASIN CLEANER [address] [place] [address] Assigned Heart and Vascular Provider 05/27/21 01/17/23 Franny Shrestha PA-C [address] [place] [address] Physician Photo Finish Photographer Urology 10/01/21 Franny Shrestha PA-C [address] [place] [address] Assigned Surgical Provider 12/29/21 11/22/22 [place] [address] [place] [address] Assigned PCP 01/19/22 03/08/22 [place] [address] [place] [address] Assigned PCP 03/09/22 03/22/22 [place] [address] [place] [address] Assigned PCP 03/23/22 06/21/22 [place] [address] [place] [address] Family Medicine 08/27/22 [place] [address] [place] [address] Assigned PCP 08/31/22 10/27/23 Aimee Mascorro MD [facility] [address] [place] [address] Assigned Surgical Provider 11/23/22 12/20/22 Franny Shrestha PA-C [address] [place] [address] Assigned Surgical Provider 12/21/22 05/28/24 Amanda Ibrahim MD Assigned Heart and Vascular Provider 01/18/23 01/26/24 [facility] [address] [place] [address] Assigned PCP 10/28/23 documented as of this encounter
--- OUTSIDE RECORDS SUMMARY | 2024-08-02 10:57 | XMS_ITS | Encounter Summary ---
Author Organization [place] Address [address] [place] [address] Care Team Providers Care Senior Drupal Developer Name Role Phone Page, Nikki Vega RN Unavailable Unavailable Bryon Bell MD Primary Care Provider + [phone] Bryon Bell MD Unavailable [phone] Amanda Ibrahim MD Unavailable Unavailabl [facility] APRN [facility] Unavailable [phone] Franny Shrestha PA-C Unavailable [phone] Franny Shrestha PA-C Unavailable [phone] Anyi Broderick MD Unavailable Bryon Bell MD Unavailable [phone] Anyi Broderick MD Unavailable Vitaliy Solo MD Primary Care Provider Bryon Bell MD Unavailable [phone] Anyi Broderick MD Unavailable Aimee Mascorro MD Unavailable [phone] Franny Shrestha PA-C Unavailable [phone] Amanda Ibrahim MD Un[facility] e Reason for Visit * Reason Onset Date Comments MyChart Communication 04/09/2021 Encounter Details Date Type Department Care Team (Late st Contact Info) Description 04/09/2021 [facility] [id number] [place] [phone] [place] [address] [address] [place], [place] [phone] MyChart Communication Social History Tobacco Use Types [...] PM CDT 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 Gender Identity Male 03/03/2021 2:33 PM CDT [...] filedocumented in this encounter Care Teams Senior Drupal Developer Relationship Specialty Start Date End Date Bryon Bell MD PCP - General Family Medicine 03/06/21 05/05/22 Vitaliy Solo MD [facility] [address] [place] [address] PCP - General Emergency Medicine 07/19/22 Nikki Pierre RN Personal Advocate & Liaison (PAL) Family Medicine 03/06/21 03/25/22 [place] [address] [place] [address] Assigned PCP 03/11/21 01/18/22 Amanda Ibrahim MD Assigned Heart and Vascular Provider 04/22/21 05/26/21 Hardik Laureen BergmanGUS SCRAP METAL PROCESSING WORKER [address] [place] [address] Assigned Heart and Vascular Provider 05/27/21 01/17/23 Franny Shrestha PA-C [address] [place] [address] Physician Slabber Light Urology 10/01/21 Franny Shrestha PA-C [address] [place] [address] Assigned Surgical Provider 12/29/21 11/22/22 [place] [address] [place] [address] Assigned PCP 01/19/22 03/08/22 [place] [address] [place] [address] Assigned PCP 03/09/22 03/22/22 [place] [address] [place] [address] Assigned PCP 03/23/22 06/21/22 [place] [address] [place] [address] Family Medicine 08/27/22 [place] [address] [place] [address] Assigned PCP 08/31/22 10/27/23 Aimee Mascorro MD [facility] [address] [place] [address] Assigned Surgical Provider 11/23/22 12/20/22 Franny Shrestha PA-C [address] [place] [address] Assigned Surgical Provider 12/21/22 05/28/24 Amanda Ibrahim MD Assigned Heart and Vascular Provider 01/18/23 01/26/24 [facility] [address] [place] [address] Assigned PCP 10/28/23 documented as of this encounter
--- OUTSIDE RECORDS SUMMARY | 2024-08-02 10:57 | XMS_ITS | Encounter Summary ---
Author Organization [place] Address [address] [place] [address] Care Team Providers Care Retention Representative Name Role Phone Page, Nikki Vega RN Unavailable Unavailable Bryon Bell MD Primary Care Provider + [phone] Bryon Bell MD Unavailable [phone] Laureen Dye APRN BOARD WINDER Unavailable [phone] Franyn Shrestha PA-C Unavailable [phone] Franny Shrestha PA-C Unavailable Anyi Broderick MD Unavailable Bryon Bell MD Unavailable Anyi Broderick MD Unavailable Vitaliy Solo MD Primary Care Provider Bryon Bell MD Unavailable [phone] Anyi Broderick MD Unavailable Aimee Mascorro MD Unavailable [phone] Franny Shrestha PA-C Unavailable Amanda Ibrahim MD Un[facility] Unavailabl e Encounter Details Date Type Department Care Team (Late st Contact Info) Description 12/07/2021 [place] Medical Advice [facility] Clinic [address] [place] [phone] Franny Shrestha PA-C [address] [place] [address] Social History Tobacco Use Types Packs/Day Years Used Date Smoking Tobacco: Never Smokeless Tobacco: Never Alcohol Use Standard Drinks/Week Comments Yes 0 (1 standard drink = 0.6 oz pur e alcohol) occ PHQ-2 Answer Date Recorded PHQ-2 Score 0 09/06/2021 Sex and Gender Information Value Date Recorded Sex Assigned at Male 03/03/2021 2:33 PM CDT 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 Gender Identity Male 03/03/2021 2:33 PM CDT Sexual Orientation Straight 03/03/2021 2: 33 PM CDT documented as of this encounter Plan of Treatment Not on file documented as of this encounter Visit Diagnoses Not on filedocumented in this encounter Care Teams Retention Representative Relationship Specialty Start Date End Date Bryon Bell MD PCP - General Family Medicine 03/06/21 05/05/22 Vitaliy Solo MD [facility] [address] [place] [address] PCP - General Emergency Medicine 07/19/22 Nikki Pierre RN Personal Advocate & Liaison (PAL) Family Medicine 03/06/21 03/25/22 [place] [address] [place] [address] Assigned PCP 03/11/21 01/18/22 Laureen Dye APRN BOARD WINDER [address] [place] [address] Assigned Heart and Vascular Provider 05/27/21 01/17/23 Franny hSrestha PA-C [address] [place] [address] Physician Mountain Services Manager Urology 10/01/21 Franny Shrestha PA-C [address] [place] [address] Assigned Surgical Provider 12/29/21 11/22/22 [place] [address] [place] [address] Assigned PCP 01/19/22 03/08/22 [place] [address] [place] [address] Assigned PCP 03/09/22 03/22/22 [place] [address] [place] [address] Assigned PCP 03/23/22 06/21/22 [place] [address] [place] [address] Family Medicine 08/27/22 [place] [address] [place] [address] Assigned PCP 08/31/22 10/27/23 Aimee Mascorro MD [facility] [address] [place] [address] Assigned Surgical Provider 11/23/22 12/20/22 Franny Shrestha PA-C [address] [place] [address] Assigned Surgical Provider 12/21/22 05/28/24 Amanda Ibrahim MD Assigned Heart and Vascular Provider 01/18/23 01/26/24 [facility] [address] [place] [address] Assigned PCP 10/28/23 documented as of this encounter
--- OUTSIDE RECORDS SUMMARY | 2024-08-02 10:57 | XMS_ITS | Encounter Summary ---
Author Organization [place] Address [address] [place] [address] Care Team Providers Care Shift Coordinator Name Role Phone No Ref-Primary, Physician Primary Care Provider Bryon Bell MD Unavailable [phone] Anyi Broderick MD Unavailable Nikki Pierre RN Unavailable Unavailable Bryon Bell MD Primary Care Provider + [phone] Bryon Bell MD Unavailable [phone] Amanda Ibrahim MD Unavailable UnavailLaureen Doe APRN, CNP Unavailable [phone] Franny ShresthaC Unavailable [phone] Franny Shrestha PA-C Unavailable [phone] Anyi Broderick MD Unavailable Bryon Bell MD Unavailable [phone] Anyi Broderick MD Unavailable Vitaliy Solo MD Primary Care Provider Bryon Bell MD Unavailable [phone] Anyi Broderick MD Unavailable Aimee Mascorro MD Unavailable [phone] Franny Shrestha PA-C Unavailable [phone] Amanda Ibrahim MD [facility] Reason for Visit * Reason Onset Date Comments MyChart Communication 03/09/2020 Encounter Details Date Type Department Care Team (Late st Contact Info) Description 03/09/2020 MyC Medical Advice [facility] [address] [place] [address] [place] [address] [facility] [place] [address] MyChart Communication Social History Tobacco Use Types [...] PM CDT 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 Gender Identity Male 03/03/2021 2:33 PM CDT [...] on filedocumented in this encounter Care Teams Shift Coordinator Relationship Specialty Start Date End Date No Ref-Primary, Physician PCP - General 08/14/18 03/05/21 Bryon Bell MD PCP - General Family Medicine 03/06/21 05/05/22 Vitaliy Solo MD [facility] [address] [place] [address] PCP - General Emergency Medicine 07/19/22 [place] [address] [place] [address] Assigned PCP 07/30/18 01/18/21 [place] [address] [place] [address] Assigned PCP 01/19/21 03/10/21 Nikki Pierre, RN Personal Advocate & Liaison (PAL) Family Medicine 03/06/21 03/25/22 [place] [address] [place] [address] Assigned PCP 03/11/21 01/18/22 Amanda Ibrahim MD Assigned Heart and Vascular Provider 04/22/21 05/26/21 Laureen Dye APRN LIFE ADVISOR [address] [place] [address] Assigned Heart and Vascular Provider 05/27/21 01/17/23 Franny Shrestha PA-C [address] [place] [address] Physician Software Licensing Executive Urology 10/01/21 Franny Shrestha PA-C [address] [place] [address] Assigned Surgical Provider 12/29/21 11/22/22 [place] [address] [place] [address] Assigned PCP 01/19/22 03/08/22 [place] [address] [place] [address] Assigned PCP 03/09/22 03/22/22 [place] [address] [place] [address] Assigned PCP 03/23/22 06/21/22 [place] [address] [place] [address] Family Medicine 08/27/22 [place] [address] [place] [address] Assigned PCP 08/31/22 10/27/23 Aimee Mascorro MD [facility] [address] [place] [address] Assigned Surgical Provider 11/23/22 12/20/22 Franny Shrestha PA-C [address] [place] [address] Assigned Surgical Provider 12/21/22 05/28/24 Amanda Ibrahim MD Assigned Heart and Vascular Provider 01/18/23 01/26/24 [facility] [address] [place] [address] Assigned PCP 10/28/23 documented as of this encounter
--- OUTSIDE RECORDS SUMMARY | 2024-08-02 10:57 | XMS_ITS | Encounter Summary ---
Author Organization [place] Address [address] [place] [address] Care Team Providers Care Assembly Person Name Role Phone Anyi Broderick MD Unavailable Nikki Pierre RN Unavailable Unavailable Bryon Bell MD Primary Care Provider + [phone] Bryon Bell MD Unavailable [phone] Amanda Ibrahim MD Unavailable Unavailabl [facility] Unavailable [phone] Franny Shrestha PA-C Unavailable [phone] Franny Shrestha PA-C Unavailable [phone] Anyi Broderick MD Unavailable Bryon Bell MD Unavailable [phone] Anyi Broderick MD Unavailable Vitaliy Solo MD Primary Care Provider Bryon Bell MD Unavailable [phone] Anyi Broderick MD Unavailable Aimee Mascorro MD Unavailable [phone] Franny ShresthaC Unavailable [phone] Amanda Ibrahim MD Un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 [...] filedocumented in this encounter Care Teams Assembly Person Relationship Specialty Start Date End Date Bryon Bell MD PCP - General Family Medicine 03/06/21 05/05/22 Vitaliy Solo MD [facility] [address] [facility] [place] [address] PCP - General Emergency Medicine 07/19/22 [place] [address] [place] [address] Assigned PCP 01/19/21 03/10/21 Nikki Pierre RN Personal Advocate & Liaison (PAL) Family Medicine 03/06/21 03/25/22 [place] [address] [place] [address] Assigned PCP 03/11/21 01/18/22 Amanda Ibrahim MD Assigned Heart and Vascular Provider 04/22/21 05/26/21 Laureen Dye, GOLDSMITH APPRENTICE GARNETT MECHANIC [address] [place] [address] Assigned Heart and Vascular Provider 05/27/21 01/17/23 Franny Shrestha PA-C [address] [place] [address] Physician Crate Icer Urology 10/01/21 Franny Shrestha PA-C [address] [place] [address] Assigned Surgical Provider 12/29/21 11/22/22 [place] [address] [place] [address] Assigned PCP 01/19/22 03/08/22 [place] [address] [place] [address] Assigned PCP 03/09/22 03/22/22 [place] [address] [place] [place] [address] Assigned PCP 03/23/22 06/21/22 [place] [address] [place] [address] Family Medicine 08/27/22 [place] [address] [place] [address] Assigned PCP 08/31/22 10/27/23 Aimee Mascorro MD [facility] [address], [address] [place] [address] Assigned Surgical Provider 11/23/22 12/20/22 Franny Shrestha PA-C [address] [place] [address] Assigned Surgical Provider 12/21/22 05/28/24 Amanda Ibrahim MD Assigned Heart and Vascular Provider 01/18/23 01/26/24 [facility] [address] [place] [address] Assigned PCP 10/28/23 documented as of this encounter
--- OUTSIDE RECORDS SUMMARY | 2024-08-02 10:57 | XMS_ITS | Encounter Summary ---
Author Organization [place] Address [address] [place] [address] Care Team Providers Care Dietary Manager Name Role Phone Laureen Dye APRN SOLAR PHOTOVOLTAIC DESIGNER Unavailable [phone] Franny Shrestha PA-C Unavailable [phone] Franny Shrestha PA-C Unavailable Anyi Broderick MD Unavailable Vitaliy Solo MD Primary Care Provider Bryon Bell MD Unavailable Anyi Broderick MD Unavailable Aimee Mascorro MD Unavailable [phone] Franny Shrestha PA-C Unavailable Amanda Ibrahim MD Unavailable Unavailabl e [facility] Unavailabl e Encounter Details Date Type Department Care Team (Late st Contact Info) Description 06/07/2022 MyC Medical Advice [facility] [address] [place] [address] Franny Shrestha PA-C [address] [facility] [address] [place], [place] [address] Social History Tobacco Use Types Packs/Day Years Used Date Smoking Tobacco: Never Smokeless Tobacco: Never Alcohol Use Standard Drinks/Week Comments Yes 0 (1 standard drink = 0.6 oz pur e alcohol) occ PHQ-2 Answer Date Recorded PHQ-2 Score 0 12/24/2021 Sex and Gender Information Value Date Recorded Sex Assigned at Male 03/03/2021 2:33 PM CDT 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 Gender Identity Male 03/03/2021 2:33 PM CDT Sexual Orientation Straight 03/03/2021 2: 33 PM CDT documented as of this encounter Plan of Treatment Not on file documented as of this encounter Visit Diagnoses Not on filedocumented in this encounter Care Teams Dietary Manager Relationship Specialty Start Date End Date Vitaliy Solo MD [facility] [address] [place] [address] PCP - General Emergency Medicine 07/19/22 Laureen Dye, JAVASCRIPT SOFTWARE ENGINEER SOLAR PHOTOVOLTAIC DESIGNER [address] [place] [address] Assigned Heart and Vascular Provider 05/27/21 01/17/23 Franny Shrestha PA-C [address] [place] [address] Physician Contact Lens Curve Grinder Urology 10/01/21 Franny Shrestha PA-C [address] [place] [address] Assigned Surgical Provider 12/29/21 11/22/22 [place] [address] [place] [address] Assigned PCP 03/23/22 06/21/22 [place] [address] [place] [address] Family Medicine 08/27/22 [place] [address] [place] [address] Assigned PCP 08/31/22 10/27/23 Aimee Mascorro MD [facility] [address] [place] [address] Assigned Surgical Provider 11/23/22 12/20/22 Franny Shrestha PA-C [address] [place] [address] Assigned Surgical Provider 12/21/22 05/28/24 Amanda Ibrahim MD Assigned Heart and Vascular Provider 01/18/23 01/26/24 [facility] [address] [place] [address] Assigned PCP 10/28/23 documented as of this encounter
--- OUTSIDE RECORDS SUMMARY | 2024-08-02 10:57 | XMS_ITS | Encounter Summary ---
Author Organization [place] Address [facility] [place] [address] Care Team Providers Care Bond Clerk Name Role Phone Laureen Dye ADZING AND BORING MACHINE FEEDER GEAR KEEPER Unavailable [phone] Franny Shrestha PA-C Unavailable Franny Shrestha PA-C Unavailable Anyi Broderick MD Unavailable Vitaliy Solo MD Primary Care Provider Bryon Bell MD Unavailable [phone] Anyi Broderick MD Unavailable Aimee Mascorro MD Unavailable [phone] Franny Shrestha PA-C Unavailable [phone] Amanda Ibrahim MD Unavailable Unavailabl e [facility] Unavailabl e Encounter Details Date Type Department Care Team (Late st Contact Info) Description 06/20/2022 [facility] [place] [address] [facility] [address] [place] [address] Laureen Dye, ADZING AND BORING MACHINE FEEDER GEAR KEEPER [address] [facility] [address] [place], [place] [address] Social History Tobacco Use Types Packs/Day Years Used Date Smoking Tobacco: Never Smokeless Tobacco: Never Alcohol Use Standard Drinks/Week Comments Yes 0 (1 standard drink = 0.6 oz pur e alcohol) occ PHQ-2 Answer Date Recorded PHQ-2 Score 0 12/24/2021 Sex and Gender Information Value Date Recorded Sex Assigned at Male 03/03/2021 2:33 PM CDT 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 Gender Identity Male 03/03/2021 2:33 PM CDT Sexual Orientation Straight 03/03/2021 2: 33 PM CDT documented as of this encounter Plan of Treatment Not on file documented as of this encounter Visit Diagnoses Not on filedocumented in this encounter Care Teams Bond Clerk Relationship Specialty Start Date End Date Vitaliy Solo MD [facility] [address] [place] [address] PCP - General Emergency Medicine 07/19/22 Laureen Dye, ADZING AND BORING MACHINE FEEDER GEAR KEEPER [address] [place] [address] Assigned Heart and Vascular Provider 05/27/21 01/17/23 Franny Shrestha PA-C [address] [place] [address] Physician Engineer Assistant Urology 10/01/21 Franny Shrestha PA-C [address] [facility] [address] [place] [address] Assigned Surgical Provider 12/29/21 11/22/22 [place] [address] [place] [address] Assigned PCP 03/23/22 06/21/22 [place] [address] [place] [address] Family Medicine 08/27/22 [place] [address] [place] [address] Assigned PCP 08/31/22 10/27/23 Aimee aMscorro MD [facility] [address] [place] [address] Assigned Surgical Provider 11/23/22 12/20/22 Franny Shrestha PA-C [address] [place] [address] Assigned Surgical Provider 12/21/22 05/28/24 Amanda Ibrahim MD Assigned Heart and Vascular Provider 01/18/23 01/26/24 [facility] [address] [address] Assigned PCP 10/28/23 documented as of this encounter
--- OUTSIDE RECORDS SUMMARY | 2024-08-02 10:57 | XMS_ITS | Encounter Summary ---
Author Organization [place] Address [address] [place] [address] Care Team Providers Care Automotive Worker Name Role Phone Page, Nikki Vega RN Unavailable Unavailable Bryon Bell MD Primary Care Provider [phone] Bryon Bell MD Unavailable [phone] Amanda Ibrahim MD Unavailable Unavailabl Laureen Dye APRN [facility] Unavailable [phone] Franny Shrestha PA-C Unavailable [phone] Franny Shrestha PA-C Unavailable [phone] Anyi Broderick MD Unavailable Bryon Bell MD Unavailable [phone] Anyi Broderick MD Unavailable Vitaliy Solo MD Primary Care Provider Bryon Bell MD Unavailable [phone] Anyi Broderick MD Unavailable Aimee Mascorro MD Unavailable [phone] Franny Shrestha PA-C Unavailable [phone] Amanda Ibrahim MD Un[facility] e Encounter Details Date Type Department Care Team (Late st Contact Info) Description 04/18/2021 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 Gender Identity Male 03/03/2021 2:33 PM [...] on filedocumented in this encounter Care Teams Automotive Worker Relationship Specialty Start Date End Date Bryon Bell MD PCP - General Family Medicine 03/06/21 05/05/22 Vitaliy Solo MD [facility] [address] [place] [address] PCP - General Emergency Medicine 07/19/22 Nikki Pierre RN Personal Advocate & Liaison (PAL) Family Medicine 03/06/21 03/25/22 [place] [address] [place] [address] Assigned PCP 03/11/21 01/18/22 Amanda Ibrahim MD Assigned Heart and Vascular Provider 04/22/21 05/26/21 Hardik Laureen GUS Bergman EDUCATIONAL PROGRAM ASSISTANT [address] [place] [address] Assigned Heart and Vascular Provider 05/27/21 01/17/23 Franny Shrestha PA-C [address] [place] [address] Physician Sales Advisor Urology 10/01/21 Franny Shrestha PA-C [address] [place] [address] Assigned Surgical Provider 12/29/21 11/22/22 [place] [address] [place] [address] Assigned PCP 01/19/22 03/08/22 [place] [address] [place] [address] Assigned PCP 03/09/22 03/22/22 [place] [address] [place] [address] Assigned PCP 03/23/22 06/21/22 [place] [address] [place] [address] Family Medicine 08/27/22 [place] [address] [address] [place] [address] Assigned PCP 08/31/22 10/27/23 Aimee Mascorro MD [facility] [address], [address] [place] [address] Assigned Surgical Provider 11/23/22 12/20/22 Franny Srhestha PA-C [address] [place] [address] Assigned Surgical Provider 12/21/22 05/28/24 Amanda Ibrahim MD Assigned Heart and Vascular Provider 01/18/23 01/26/24 [facility] [address] [place] [address] Assigned PCP 10/28/23 documented as of this encounter
--- OUTSIDE RECORDS SUMMARY | 2024-08-02 10:57 | XMS_ITS | Encounter Summary ---
Author Organization [place] Address [address] [place] [address] Care Team Providers Care Stranner Name Role Phone Nikki Pierre RN Unavailable Unavailable Bryon Bell MD Primary Care Provider [phone] Laureen Dye APRN INDUSTRIAL PARAMEDIC Unavailable [phone] Franny ShresthaC Unavailable [phone] Franny Shrestha PA-C Unavailable Anyi Broderick MD Unavailable Bryon Bell MD Unavailable Anyi Broderick MD Unavailable Vitaliy Solo MD Primary Care Provider Bryon Bell MD Unavailable [phone] Anyi Broderick MD Unavailable Aimee Mascorro MD Unavailable [phone] Franny Shrestha PA-C Unavailable Amanda Ibrahim MD Unavailable Unavailabl e [facility] Unavailabl e Encounter Details Date Type Department Care Team (Late st Contact Info) Description 02/06/2022 [facility] [address] [place] [address] Page, Nikki M, RN Social [...] PM CDT 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 Gender Identity Male 03/03/2021 2:33 PM CDT Sexual Orientation Straight 03/03/2021 2: 33 PM CDT documented as of this encounter Plan of Treatment Not on file documented as of this encounter Visit Diagnoses Not on filedocumented in this encounter Care Teams Stranner Relationship Specialty Start Date End Date Bryon Bell MD PCP - General Family Medicine 03/06/21 05/05/22 Vitaliy Solo MD [facility] [address] [address] PCP - General Emergency Medicine 07/19/22 Nikki Pierre, RN Personal Advocate & Liaison (PAL) Family Medicine 03/06/21 03/25/22 Laureen Dye APRN INDUSTRIAL PARAMEDIC [address] [place] [address] Assigned Heart and Vascular Provider 05/27/21 01/17/23 Franny Shrestha PA-C [address] [place] [address] Physician Hand Gluer And Slicer Urology 10/01/21 Franny Shrestha PA-C [address] [place] [address] Assigned Surgical Provider 12/29/21 11/22/22 [place] [address] [address] [place] [address] Assigned PCP 01/19/22 03/08/22 [place] [address] [place] [address] Assigned PCP 03/09/22 03/22/22 [place] [address] [place] [address] Assigned PCP 03/23/22 06/21/22 [place] [address] [place] [address] Family Medicine 08/27/22 [place] [address] [place] [address] Assigned PCP 08/31/22 10/27/23 Aimee Mascorro MD [facility] [address] [place] [address] Assigned Surgical Provider 11/23/22 12/20/22 Franny Shrestha PA-C [address] [place] [address] Assigned Surgical Provider 12/21/22 05/28/24 Amanda Ibrahim MD Assigned Heart and Vascular Provider 01/18/23 01/26/24 [facility] [address] [place] [address] Assigned PCP 10/28/23 documented as of this encounter
--- OUTSIDE RECORDS SUMMARY | 2024-08-02 10:57 | XMS_ITS | Encounter Summary ---
Author Organization [place] Address [address] [place] [address] Care Team Providers Care Distribution Operation Supervisor Name Role Phone Laureen Dye APRN LEGAL AIDE Unavailable [phone] Franny Shrestha PA-C Unavailable [phone] Franny Shrestha PA-C Unavailable Vitaliy Solo MD Primary Care Provider Bryon Bell MD Unavailable [phone] Anyi Broderick MD Unavailable Aimee Mascorro MD Unavailable [phone] Franny Shrestha PA-C Unavailable Amanda Ibrahim MD Unavailable Unavailabl e [facility] Unavailabl e Encounter Details Date Type Department Care Team (Late st Contact Info) Description 08/01/2022 MyC Medical Advice [facility] [address] [place] [phone] Amanda Ibrahim MD Social History Tobacco Use Types Packs/Day Years Used Date Smoking Tobacco: Never Smokeless Tobacco: Never Alcohol Use Standard Drinks/Week Comments Yes 0 (1 standard drink = 0.6 oz pur e alcohol) occ PHQ-2 Answer Date Recorded PHQ-2 Score 0 12/24/2021 Sex and Gender Information Value Date Recorded Sex Assigned at Male 03/03/2021 2:33 PM CDT 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 No / Unsure 08/01/2022 11:05 AM ROLL TRUCKER documented as of this encounter Plan of Treatment Not on file documented as of this encounter Visit Diagnoses Not on filedocumented in this encounter Care Teams Distribution Operation Supervisor Relationship Specialty Start Date End Date Vitaliy Solo MD [facility] [address] [place] [address] PCP - General Emergency Medicine 07/19/22 Laureen Dye, RECOATER LEGAL AIDE [address] [place] [address] Assigned Heart and Vascular Provider 05/27/21 01/17/23 Franny Shrestha PA-C [address] [place] [address] Physician Epic Analyst Urology 10/01/21 Franny Shrestha PA-C [address] [facility] [address] [place] [address] Assigned Surgical Provider 12/29/21 11/22/22 [place] [address] [place] [address] Family Medicine 08/27/22 [place] [address] [place] [address] Assigned PCP 08/31/22 10/27/[address] [facility] [address] [place] [address] Assigned Surgical Provider 11/23/22 12/20/22 Franny Shrestha PA-C [address] [place] [address] Assigned Surgical Provider 12/21/22 05/28/24 Amanda Ibrahim MD Assigned Heart and Vascular Provider 01/18/23 01/26/24 [facility] [address] [place] [address] Assigned PCP 10/28/23 documented as of this encounter
--- OUTSIDE RECORDS SUMMARY | 2024-08-02 10:57 | XMS_ITS | Encounter Summary ---
Author Organization [facility] Address [address] [place] [address] Care Team Providers Care Switchboard Wire Worker Helper Name Role Phone Page, Nikki Vega RN Unavailable Unavailable Bryon Bell MD Primary Care Provider [phone] Bryon Bell MD Unavailable [phone] Laureen Dye APRN SECURITY INCIDENT RESPONSE SPECIALIST Unavailable [phone] Franny Shrestha PA-C Unavailable Franny Shrestha PA-C Unavailable Anyi Broderick MD Unavailable Bryon Bell MD Unavailable [phone] Anyi Broderick MD Unavailable Vitaliy Solo MD Primary Care Provider Bryon Bell MD Unavailable [phone] Anyi Broderick MD Unavailable Aimee Mascorro MD Unavailable [phone] Franny Shrestha PA-C Unavailable Amanda Ibrahim MD [facility]available [facility] Unavail[facility] e Reason for Visit * Reason Onset Date Comments Outreach 10/10/2021 PAL Encounter Details Date Type Department Care Team (Late st Contact Info) Description 10/10/2021 MyC Medical [facility] [address] [place] [id number] [place] [address] [place] [address] Outreach (PAL) Social History Tobacco Use Types Packs/Day Years Used Date Smoking Tobacco: Never Smokeless Tobacco: Never Alcohol Use Standard Drinks/Week Comments Yes 0 (1 standard drink = 0.6 oz pur e alcohol) occ PHQ-2 Answer Date Recorded PHQ-2 Score 0 09/06/2021 Sex and Gender Information Value Date Recorded Sex Assigned at Male 03/03/2021 2:33 PM CDT 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 Gender Identity Male 03/03/2021 2:33 PM CDT [...] on filedocumented in this encounter Care Teams Switchboard Wire Worker Helper Relationship Specialty Start Date End Date Bryon Bell MD PCP - General Family Medicine 03/06/21 05/05/22 Vitaliy Solo MD [facility] [address] [place] [address] PCP - General Emergency Medicine 07/19/22 Nikki Pierre, SHERMAN Personal Advocate & Liaison (PAL) Family Medicine 03/06/21 03/25/22 [place] [address] [place] [address] Assigned PCP 03/11/21 01/18/22 Hardik Laureen Madalyn RN DIGESTIVE SECURITY INCIDENT RESPONSE SPECIALIST [address] [place] [address] Assigned Heart and Vascular Provider 05/27/21 01/17/23 Franny Shrestha PA-C [address] [place] [address] Physician Slime Plant Operator Helper Urology 10/01/21 Franny Shrestha PA-C [address] [place] [address] Assigned Surgical Provider 12/29/21 11/22/22 [place] [address] [place] [address] Assigned PCP 01/19/22 03/08/22 [place] [address] [place] [address] Assigned PCP 03/09/22 03/22/22 [place] [address] [place] [address] Assigned PCP 03/23/22 06/21/22 [place] [address] [place] [address] Family Medicine 08/27/22 [place] [address] [place] [address] Assigned PCP 08/31/22 10/27/23 Aimee Mascorro MD [facility] [address], [address] [place] [address] Assigned Surgical Provider 11/23/22 12/20/22 Franny Shrestha PA-C [address] [place] [address] Assigned Surgical Provider 12/21/22 05/28/24 Amanda Ibrahim MD Assigned Heart and Vascular Provider 01/18/23 01/26/24 [facility] [address] [place] [address] Assigned PCP 10/28/23 documented as of this encounter
--- OUTSIDE RECORDS SUMMARY | 2024-08-02 10:57 | XMS_ITS | Clinical Summary ---
Author Organization [facility] Address [address] [place] [address] Care Team Providers Care Stretching Machine Tender Frame Name Role Phone Franny Shrestha PA-C Unavailable [phone] Vitaliy Solo MD Primary Care Provider Bryon Bell MD Unavailable [phone] [facility] Unavailabl e Allergies No known active allergies [...] (OCEAN) 0.65 % nasal sprayIndications:N srinivasa obstruction [place] 2 sprays in nostril 4 times daily [...] PM CDT 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 CIRCULAR SAW FILER Gender Identity Male 03/03/2021 2:33 PM CDT Sexual Orientation Straight 03/03/2021 2: 33 PM CDT Last Filed Vital Signs Vital Sign Reading Time Taken Comments Blood Pressure 160/85 11/19/2022 2:07 PM CDT Pulse 63 11/19/2022 2:07 PM CDT Temperature 36 C (96.8 F) 09/06/2021 10:26 AM CIRCULAR SAW FILER Respiratory Rate 14 09/06/2021 10:26 AM CIRCULAR SAW FILER Oxygen Saturation 98% 07/19/2022 2:28 PM CIRCULAR SAW FILER Inhaled Oxygen Concentration - - Weight 88.9 [...] WELLNESS VISIT 03/06/2022 03/06/2021, 02/28/2020, 08/21/2018 BMP 08/01/2023 08/01/2022, 08/08, 05/10/2021, Additional history exists COVID-19 Vaccine ( season) 2024 02/19/2021, 01/22/2021 INFLUENZA VACCINE (#1) 2024 7, 05/16/2016, 06/06/2015, Additional history exists PHQ-2 (once per calendar year) 2024 12/24/2021, 09/06/2021, 08/29/2021, Additional history exists LIPID 02/27/2025 02/28/2020, 08/07, 08/28/2017, Additional history exists GLUCOSE 08/01/2025 08/01/2022, 2 09/2021, 05/10/2021, Additional history exists ADVANCE CARE PLANNING 03/06/2026 03/06/2021, 020 DTAP/TDAP/TD IMMUNIZATION (3 - Td or Tdap) 07/15/2032 07/15/2022, 2014, 11/17/2001 COLONOSCOPY Discontinued 03/10/2014, 03/10/2014 COLORECTAL CANCER SCREENING Discontinued Pneumococcal Vaccine: 50+ Years Completed 08/21/2018, 06/06/2015, 05/02/2011 TSH W/FREE [...] BASIC METABOLIC PANEL Routine 08/01/2022 11:08 AM CIRCULAR SAW FILER Atrial fibrillation, unspecified type (H) TSH WITH FREE T4 REFLEX Routine 07/19/2022 1:01 PM CIRCULAR SAW FILER Atrial fibrillation (H) LIPID REFLEX TO DIRECT LDL PANEL Routine 02/28/2020 11:36 AM CDT Lipid screening COLONOSCOPY - HIM SCAN 03/10/2014 12:00 AM CDT from Last 3 Months or Most Recently Relevant to Health Maintenance Results * (ABNORMAL) Basic metabolic panel (08/01/2022 11:08 AM CIRCULAR SAW FILER) Sodium 140 136 - 145 mmol/L 08/01/2022 11:43 AM CIRCULAR SAW FILER [facility] Potassium 4.2 3.4 - 5.3 mmol/L 08/01/2022 11:43 AM CIRCULAR SAW FILER [facility] Chloride 103 98 - 107 mmol/L 08/01/2022 11:43 AM [facility] Carbon Dioxide (CO2) 31(H) 22 - 29 mmol/L 08/01/2022 11:43 AM [facility] Anion Gap 6(L) 7 - 15 mmol/L 08/01/2022 11:43 AM [facility] Urea Nitrogen 20.9 8.0 - 23.0 mg/dL 08/01/2022 11:43 AM [facility] Creatinine 0.92 0.67 - 1.17 mg/dL 08/01/2022 11:43 AM [facility] Calcium 8.9 8.8 - 10.2 mg/dL 08/01/2022 11:43 AM [facility] Glucose 187(H) 70 - 99 mg/dL 08/01/2022 11:43 AM [facility] GFR Estimate 85 >60 mL/min/1.7 3m2 08/01/2022 11:43 AM [facility] Comment:eGFR calculated usva g 2020 CKD-EPI equation. Blood STRUCTURE OF LEFT UPPER LIMB / Unknown Venipuncture / Unknown 08/01/2022 11:08 AM CIRCULAR SAW FILER 08/01/2022 11:13 AM CIRCULAR SAW FILER Amanda Ibrahim MD LAB - BLOOD ORDERABLES Christina l Result [facility] [address] (1st floor, no room number) [place] [address], [facility] [phone] * TSH with free T4 reflex (07/19/2022 1:01 PM CIRCULAR SAW FILER) TSH 1.91 0.30 - 4.20 uIU/mL 07/19/2022 1:44 PM CIRC[facility] SAW [facility] Blood STRUCTURE OF LEFT UPPER LIMB / Unknown Venipuncture / Unknown 07/19/2022 1:01 PM CIRCULAR SAW FILER 07/19/2022 1:01 PM CIRCULAR SAW FILER Amanda Ibrahim MD LAB - BLOOD ORDERABLES Christina l Result [facility] [address] (1st floor, no room number) [place] [address], [facility] [phone] * (ABNORMAL) Lipid panel reflex to direct LDL Fasting (02/28/2020 11:36 AM CDT) Cholesterol 188 <200 mg/dL 02/29/2020 8:55 AM CDT [facility] Triglycerides 67 <150 mg/dL 02/29/2020 8:57 AM CDT [facility] Comment:Fasting specimen HDL Cholesterol 69 >39 mg/dL 0 8:55 AM CDT [facility] LDL Cholesterol Calculated 106(H) <100 mg/dL 02/29/2020 8:57 AM CDT [facility] Comment: Above desirable: 100-129 mg/dl Borderline High: 130-159 mg/dL High: 160-189 mg/dL Very high: >189 mg/dl Non HDL Cholesterol 119 <130 mg/dL 02/29/2020 8:55 AM CDT [facility] Blood specimen (specimen) 02/28/2020 11:36 AM CDT 02/28/2020 11:37 AM CDT us Bryon Bell MD LAB - BLOOD ORDERABLES Final Result [facility] [address] [place] [address] * COLONOSCOPY - HIM SCAN (03/10/2014 12:00 AM CDT) 03/10/2014 us Provider Outside PROCEDURES Final Result from Last 3 Months or Most Recently Relevant to Health Maintenance Insurance [facility] [place] [employer] MEDIC[place] [facility] [place] [address] [employer] Care Teams Stretching Machine Tender Frame Relationship Specialty Start Date End Date Vitaliy Solo MD [facility] [address] [place] [address] PCP - General Emergency Medicine 07/19/22 Franny Shrestha PA-C [address] [facility] [address] [address] Physician White Lead Grinder Urology 10/01/21 [place] [address] [place] [address] Family Medicine 08/27/22 [facility] [address] [place] [address] Assigned PCP 10/28/23
[2024-08-02 11:08] VITALS: BP 184/83; PULSE 72; RESP 18; TEMP 37.1; O2SAT 98; BMI 25.4
--- NOTE | 2024-08-02 11:26 | CRLHL7_ITS ---
For Patients: As a result of the Century Cures Act, medical imaging exams and procedure reports are released immediately into your electronic medical record. You may view this report before your referring provider. If you have questions, please contact your health care provider. INDICATION: Syncope. On anticoagulation. TECHNIQUE: CT head without contrast. COMPARISON: None. FINDINGS: Mild generalized volume loss. Ill-defined low-attenuation in the periventricular and subcortical white matter. Intracranial atherosclerosis. Heterogeneous rounded calcification is present about the right clinoid and terminal internal carotid artery. There is minimal vehwa-or-betl midline shift. No hydrocephalus. No CT evidence of acute hemorrhage or infarction. No abnormal extra-axial fluid collection. Bone windows show no acute calvarial fracture. Paranasal sinuses and orbits as imaged are unremarkable. IMPRESSION: 1. No acute intracranial hemorrhage. 2. Heterogeneous rounded calcification about the right clinoid/terminal internal carotid artery is concerning for lesion such as meningioma or possible aneurysm. Follow-up MRI of the brain without and with contrast and MRA is recommended if the etiology of this finding is not known. 3. Minimal ublut-ri-zigq midline shift may be related to the above lesion. 4. Generalized volume loss and changes of chronic small vessel ischemic disease. Dictated by Isidoro Porras MD @ 08/02/2024 12:02:20 PM Please note that all CT scans at this facility use dose modulation, iterative reconstruction, and/or weight-based dosing when appropriate to reduce radiation dose to as low as reasonably achievable. Dictated by: Isidoro Porras MD @ 08/02/2024 12:03:05 (Electronically Signed)
--- NOTE | 2024-08-02 11:28 | ED.GENADULT ---
HPI - General Adult General Chief complaint: Syncope/Fainted Stated complaint: syncope/hit head Time Seen by Provider: 08/02/24 11:16 History of Present Illness HPI narrative: This 79-year-old male comes in reporting a syncopal event prior to arrival. He states that he has been feeling lightheaded recently and started a new medicine for bit is blood pressure. He is now taking carvedilol in addition to hydrochlorothiazide and lisinopril. Since starting this new medicine he has been feeling lightheaded and he states he has been taking half the dose yet still feeling lightheaded. Today he was lightheaded and went down in the garage. He does not report any injury. He states that he woke up with a headache but this went away after taking Tylenol. He does not have any headache currently and does not report any injury. He is on Eliquis for paroxysmal atrial fibrillation. Related Data Home Medications ?Medication ?Instructions ?Recorded ?Confirmed CALCIUM+D CHEW 2 tab PO DAILY 06/15/23 08/02/24 Chewable Vitamin C 3 tab PO DAILY 06/15/23 08/02/24 carvedilol 6.25 mg tablet 6.25 mg PO BID 07/15/24 08/02/24 Previous Rx's ?Medication ?Instructions ?Recorded amiodarone 200 mg tablet 200 mg PO QDAY #90 tabs 08/15/23 apixaban 5 mg tablet (Eliquis) 5 mg PO BID #60 tabs 08/25/23 lisinopril 40 mg tablet 40 mg PO DAILY #90 tabs 11/24/23 hydrochlorothiazide 12.5 mg tablet 12.5 mg PO QAM #90 tabs 05/25/24 Allergies Allergy/AdvReac Type Severity Reaction Status Date / Time No Known Drug Allergies Allergy Verified 07/15/24 10:19 Review of Systems Status of ROS: Reports: 10 or more systems reviewed and unremarkable except as noted in History and below Narrative: Constitutional: No fevers, no weight gain or loss. Eyes: No discharge. No vision changes. HENT: No congestion, no sore throat, no ear pain. Cardiovascular: No chest pain, no palpitations. Respiratory: No shortness of breath, no wheezes, no cough. Gastrointestinal: No abdominal pain, no vomiting, no diarrhea. Genitourinary: No dysuria, no hematuria. Musculoskeletal: Normal range of motion. Skin: No rashes, no pruritis. Neurological: No weakness, sensory change, speech change. He reports lightheadedness recently. Endo/Heme/Allergies: No bruising or bleeding. No polydipsia. Pysch: no suicidality, no anxiety, no insomnia. All other systems reviewed and are negative. [facility] Medical History (Updated 08/02/24 @ 15:15 by Pedro Apple MD) Weakness ?R53.1 - Weakness (ICD-10) Lyme disease ?A69.20 - Lyme disease, unspecified (ICD-10) Sciatica ?M54.30 - Sciatica, unspecified side (ICD-10) Prediabetes ?R73.03 - Prediabetes (ICD-10) Ascending aorta dilation ?I77.810 - Thoracic aortic ectasia (ICD-10) Cardiomyopathy ?I42.9 - Cardiomyopathy, unspecified (ICD-10) Prostate enlargement ?N40.0 - Benign prostatic hyperplasia without lower urinary tract symptoms (ICD-10) Adrenal abnormality (09/21/21) ?E27.9 - Disorder of adrenal gland, unspecified (ICD-10) History of nephrolithiasis ?Z87.442 - Personal history of urinary calculi (ICD-10) PAF (paroxysmal atrial fibrillation) ?I48.0 - Paroxysmal atrial fibrillation (ICD-10) Mitral regurgitation ?I34.0 - Nonrheumatic mitral (valve) insufficiency (ICD-10) Memory loss, short term ?R41.3 - Other amnesia (ICD-10) History of elevated prostate specific antigen (PSA) ?Z87.898 - Personal history of other specified conditions (ICD-10) Hypertension ?I10 - Essential (primary) hypertension (ICD-10) Surgical History History of cardioversion ?Z92.89 - Personal history of other medical treatment (ICD-10) History of cataract surgery (2016) ?Z98.49 - Cataract extraction status, unspecified eye (ICD-10) Family History Father Coronary artery disease High cholesterol Mother Diabetes High cholesterol High blood pressure Social History What is your current living situation?: I presently have a place to live Problems where you live: no known problems Problems where you live details: NA In the past 12 months, utilities in danger of being shut off: no In past 12 months, lack of transportation kept you from medical appts, meetings, work, or getting things needed for daily living: no In the past 12 mos, have been you worried that your food would run out before you had money to buy more?: never true In the past 12 mos, the food you bought just didn't last and you didn't have money to buy more?: never true Smoking Status: Never smoker How often do you have a drink containing alcohol: 2-3 times a week How many standard drinks containing alcohol do you have on a typical day: 1 or 2 AUDIT-C Alcohol total score: 3 Non-prescribed substance use: denies use Caffeine: No How often does anyone, including family, friends and others, physically hurt you: never How often does anyone, including family, friends and others, insult or talk down to you: never How often does anyone, including family, friends and others, threaten you with harm: never How often does anyone, including family, friends and others, scream or curse at you: never service: Yes Exam Narrative: Exam Narrative: Constitutional: Well-developed, well-nourished, no acute distress. HEENT: Normocephalic, atraumatic. Neck: Normal range of motion. Nontender. Supple. Heart: Regular. No murmurs. Normal rate. Intact distal pulses. Lungs: Clear to auscultation. No chest discomfort. No wheezes, rhonchi, or rales. Abdomen: Normal bowel sounds. Nontender. No rebound tenderness. Genitalia: Deferred. Back: No midline tenderness. Normal range of motion. Extremities: Normal range of motion. No injury. Skin: Intact. No rash. Warm. No erythema or pallor. Neurologic: No altered sensation. No weakness. Alert and oriented. No facial asymmetry. Tongue is midline. Ormvij-fu-fxzh is normal. No pronator drift. Melter Supervisor Electric Arc Furnace strength is equal bilaterally. Able to raise each leg from the bed. Psychiatric: No suicidality. No anxiety or depression. No insomnia. Nursing notes and vitals signs are reviewed. Const: Vital Signs, click to edit/add: Vital Signs - 24 hr 08/02/24 11:08 08/02/24 13:34 Temperature 98.7 F 97.7 F Pulse Rate [Left P ulse Oximeter] 72 75 Respiratory Rate 18 18 Blood Pressure [Ri ght Upper Arm] 184/83 H 136/108 H Pulse Oximetry 98 97 Oxygen Delivery Me thod Room Air Room Air Course Vital Signs Vital signs: Initial Vital Signs Temperature 98.7 F 08/02/24 11:08 Temperature Source Temporal Artery Scan 08/02/24 11:08 Pulse Rate 72 08/02/24 11:08 Respiratory Rate 18 08/02/24 11:08 Blood Pressure 184/83 H 08/02/24 11:08 Blood Pressure Mean 116 H 08/02/24 11:08 Blood Pressure Position Sitting 08/02/24 11:08 Pulse Oximetry 98 08/02/24 11:08 Oxygen Delivery Method Room Air 08/02/24 11:08 Vital Signs Temperature 98.7 F 08/02/24 11:08 Pulse Rate 72 08/02/24 11:08 Respiratory Rate 18 08/02/24 11:08 Blood Pressure 184/83 H 08/02/24 11:08 Pulse Oximetry 98 08/02/24 11:08 Oxygen Delivery Method Room Air 08/02/24 11:08 Temperature 97.7 F 08/02/24 13:34 Pulse Rate 75 08/02/24 13:34 Respiratory Rate 18 08/02/24 13:34 Blood Pressure 136/108 H 08/02/24 13:34 Pulse Oximetry 97 08/02/24 13:34 Oxygen Delivery Method Room Air 08/02/24 13:34 Medical Decision Making [facility] Narrative Medical decision making narrative: This patient comes in for evaluation of a syncopal event that occurred just prior to arrival. He is on anticoagulants an a CT scan of the head is obtained. There was a suspicious finding that may have indicated an aneurysm. This was followed up with an MRI MRA of the head. There is no finding of aneurysm, rather it is a meningioma that when compared with previous study is unchanged. This patient did start a new blood pressure medicine a few weeks ago and it is likely that he became lightheaded secondary to those affects. I advised him to discontinue this medicine for now and follow up with his regular doctors for ongoing management. He is okay to be discharged home. Lab Data Labs: Lab Results 08/02/24 Range/Units 13:40 WBC 8.37 (4.50-11.00) K/uL RBC 4.65 (4.30-5.90) m/uL Hgb 14.0 (13.5-17.5) gm/dL Hct 43.1 (37.0-53.0) % MCV 93 (80-100) fL MCH 30 (26-34) pg MCHC 33 (32-36) gm/dL RDW Coeff of Shivani 12.6 (11.5-15.5) % Plt Count 154 (140-440) K/uL Neut % (Auto) 77.9 H (42.0-72.0) % Lymph % (Auto) 14.7 L (20-44) % Cameron % (Auto) 5.9 (0.0-11.0) % Eos % (Auto) 1.0 (0.0-7.0) % Baso % (Auto) 0.4 (0.0-3.0) % Neut # (Auto) 6.50 (1.7-7.0) K/uL Lymph # (Auto) 1.20 (0.90-2.90) K/uL Cameron # (Auto) 0.50 (0.00-0.90) K/UL Eos # (Auto) 0.08 (0.00-0.50) K/uL Baso # (Auto) 0.03 (0.00-0.30) K/uL Abs Immat Gran (auto) 0.01 (0.00-0.30) K/uL Imm/Tot Granulo (auto) 0.1 % Sodium 140 (135-149) mmol/L Potassium 4.3 (3.6-5.1) mmol/L Chloride 105 (96-114) mmol/L Carbon Dioxide 29 (20-32) mmol/L Anion Gap 6 L (7-15) mEq/L BUN 31 H (7-30) mg/dL Creatinine 0.8 (0.5-1.5) mg/dL Estimated Creat Clear 64.67 Estimated GFR 89 ml/min Glucose 106 (60-115) mg/dL Calcium 9.0 (8.4-10.6) mg/dL Troponin I < 0.01 L (0.01-0.04) ng/mL Imaging Data CT scan - head: Radiologist's impression: 1. No acute intracranial hemorrhage. 2. Heterogeneous rounded calcification about the right clinoid/terminal internal carotid artery is concerning for lesion such as meningioma or possible aneurysm. Follow-up MRI of the brain without and with contrast and MRA is recommended if the etiology of this finding is not known. 3. Minimal qzwpc-nu-lobl midline shift may be related to the above lesion. 4. Generalized volume loss and changes of chronic small vessel ischemic disease. MR Brain: Radiologist's impression: 1. No acute intracranial abnormality, extensive age-related and chronic small vessel disease changes of the white matter. 2. Previously seen calcified lesion adjacent to the right orbital apex represents a calcified 3.0 x 1.4 centimeter meningioma centered at the orbital apex with partial encasement of the right carotid terminus and A1 segment of the right anterior cerebral artery without evidence of significant effacement or occlusion of the overlying blood vessels. No evidence of aneurysm is identified. Dictated by Edmund White MD @ 08/02/2024 2:24:43 PM ----- ADDENDUM ----- Additional comparison studies were made available and comparison is made to MRI brain with and without contrast November 21, 2023 and June 14, 2023. Overall, previously seen enhancing meningioma at the right orbital apex is stable in size and configuration from previous exam with partial encasement of the orbital apex and carotid terminus. Otherwise, no new acute intracranial abnormalities from previous exam. ECG Data Attestation: I personally reviewed and interpreted this ECG as follows: Interpretation: Sinus rhythm with PVCs, rate is 71 beats per minute. There are no specific ST or T-wave abnormalities. Right bundle branch block. Discharge Plan Discharge Clinical Impression: Syncope Clinical Impression: (Ruled Out): Syncope due to orthostatic hypotension Patient Disposition: Home, Self-Care Condition: Stable Additional Instructions: Hold carvedilol and follow-up with primary physicians for ongoing management of blood pressure. Return if symptoms are recurrent or worsening. Prescriptions: No Action hydrochlorothiazide 12.5 mg tablet 12.5 mg PO QAM Qty: 90 0RF carvedilol 6.25 mg tablet 6.25 mg PO BID Rx Instructions: must administer with a meal/food Chewable Vitamin C 3 tab PO DAILY Rx Instructions: 3 CHEWABLE VIT C TABLETS DAILY, DOSE UNKNOW CALCIUM+D CHEW 2 tab PO DAILY Rx Instructions: CALCIUM + D - 2 CHEW TABS DAILY, DOSE UNKNOWN amiodarone 200 mg tablet 200 mg PO QDAY Qty: 90 3RF Eliquis 5 mg tablet 5 mg PO BID Qty: 60 2RF lisinopril 40 mg tablet 40 mg PO DAILY Qty: 90 3RF Follow Up/Referrals: Vitaliy Solo MD [Primary Care Provider] - Stand Alone Forms: GIVVER Info Instructions
--- OUTSIDE RECORDS SUMMARY | 2024-08-02 11:58 | XMS_ITS | Continuity of Care Document ---
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 It does not include entries that were removed or entered in error. Problem Status Onset Date Problem Type Date of Resolution Comments Source Hearing loss Active Condition Oct 30, 2018 Entered By: ANNIE SOTOMAYOR Comment: Right ear [facility] Raised prostate specific antigen Active Condition [facility] Tinea cruris Active Condition [facility] Diagnosis: ICD-10-CM Z01.118 Encntr for exam of ears and hearing w oth abnormal findings Active Diagnosis [facility] Encounters Combined list of: 1) Encounters from Department of Veterans Affairs facilities going back up to thelast 18 months. 2) Encounters from the Department of [facility] facilities going back up to 280 months. Location Location Details Encounter Type Encounter Number Reason For Visit Attending Provider ADM Date DC Date Status Disposition [place] [facility] Outpatient Encounter [id number] 03/13 [facility] [place] [facility] Outpatient Encounter [id number] 04/16 [facility] [place] [facility] Outpatient Encounter [id number] 04/17 [facility] [place] [facility] Outpatient Encounter [id number] 04/18 [facility] [place] [facility] Outpatient Encounter [id number] 05/01 [facility] [place] [facility] Outpatient Encounter [id number] 05/01 [facility] [place] [facility] Outpatient Encounter [id number] 05/12 [facility] [place] [facility] Outpatient Encounter [id number] 05/12 [place] [facility] [place] [facility] Outpatient Encounter [id number] 10/07 [place] [facility] [place] [facility] Outpatient Encounter [id number] 10/07 [place] [facility] [place] [facility] Outpatient Encounter [id number] 01/05 [place] [facility] [place] [facility] [place]/OP EST NOVEMBER X REQ PHY/QHP [id number] Diagnos is: ICD-10- CM Z01.118 Encntr for exam of ears and hearing w oth abnorma l finding s
CRYSTAL MURRAY AEL F 01/29 [place] [facility] Social History Combined list of available smoking, tobacco, and other social history from Department of Defense and Veterans Affairs facilities. Social History Type Response Date Comment Sourc e Tobacco smoking status [facility] NEVER [facility]ED 10/21/2018 [place] [facility]
--- NOTE | 2024-08-02 12:25 | CRLHL7_ITS ---
For Patients: As a result of the Century Cures Act, medical imaging exams and procedure reports are released immediately into your electronic medical record. You may view this report before your referring provider. If you have questions, please contact your health care provider. Indication: Follow-up questionable right orbital apex aneurysm/calcified mass lesion Technique: Multiplanar, multisequence MR images of the brain were obtained before and after the administration of intravenous gadolinium. 20 cc Dotarem intravenous gadolinium Comparison: CT head August 02, 2024 Findings: On midline sagittal T1 images, there are preserved flow voids and sagittal sinuses. The corpus callosum is preserved in signal and contour. The pituitary gland is unremarkable without evidence of remodeling of the sella turcica. There is no significant cerebellar tonsillar ectopia. On diffusion-weighted sequences, there is no evidence of acute or subacute infarct. On blood sensitive sequences, there is no evidence of or chronic hemorrhage. There is age-related global cortical atrophy with sulcal widening and minimal ex vacuo dilatation of the lateral ventricles. There is moderate to severe chronic small vessel disease change within the subcortical and periventricular white matter with extensive T2/FLAIR hyperintensities. Otherwise, the brain parenchyma is preserved in signal intensity for age. Corresponding to the area of clinical concern just at the right orbital apex is demonstration of a dural-based enhancing exophytic extra-axial mass with partial encasement of the right orbital apex and adjacent distal internal carotid artery without evidence of flow void to suggest aneurysm. Overall, mass measures 3.0 x 1.4 x 1.4 centimeters. The right A1 portion of the right anterior cerebral artery is partially encased as well. No other additional abnormal contrast enhancement. The flow voids at the skull base are unremarkable. The orbits and their contents are within normal limits. There is mild chronic mucosal thickening within the paranasal sinuses. There is minimal fluid within the bilateral mastoid air cells. Impression: 1. No acute intracranial abnormality, extensive age-related and chronic small vessel disease changes of the white matter. 2. Previously seen calcified lesion adjacent to the right orbital apex represents a calcified 3.0 x 1.4 centimeter meningioma centered at the orbital apex with partial encasement of the right carotid terminus and A1 segment of the right anterior cerebral artery without evidence of significant effacement or occlusion of the overlying blood vessels. No evidence of aneurysm is identified. Dictated by Edmund White MD @ 08/02/2024 2:24:43 PM (Electronically Signed)
--- NOTE | 2024-08-02 12:33 | CRLHL7_ITS ---
For Patients: As a result of the Century Cures Act, medical imaging exams and procedure reports are released immediately into your electronic medical record. You may view this report before your referring provider. If you have questions, please contact your health care provider. Indication: Follow-up CT findings, possible aneurysm Technique: 3-D [id number] MRA images of the [place] of [place] were obtained without the administration of intravenous gadolinium. Maximum intensity projections and 3-D reconstructions were performed. Comparison: CT head August 02, 2024 and MRI brain August 02, 2024 Findings: Motion artifact markedly limits evaluation of the skull base internal carotid arteries at the area of concern. The anterior cerebral arteries are patent without significant atherosclerotic disease or aneurysm. The bilateral proximal middle cerebral arteries demonstrate extensive motion artifact. The distal bilateral middle cerebral artery segments are otherwise unremarkable. Motion limited evaluation of the posterior cerebral arteries. There is a dominant left and likely hypoplastic right vertebral artery. Extensive motion artifact limited evaluation of the basilar artery. Impression: 1. Overall partially nondiagnostic exam due to motion artifact at the level of the skull base which obscures the area of interest. No obvious internal flow or flow signal is appreciated at the right orbital apex. Recently acquired MR brain demonstrates uniform enhancement commensurate with meningioma. Dictated by Edmund White MD @ 08/02/2024 2:30:15 PM (Electronically Signed)
[2024-08-02 13:34] VITALS: BP 136/108; PULSE 75; RESP 18; TEMP 36.5; O2SAT 97
[2024-08-02 14:05] LABS: Basophils Absolute Auto 0.03 K/uL (0.00-0.30); Basophils Percent Auto 0.4 % (0.0-3.0); Eosinophils Absolute Auto 0.08 K/uL (0.00-0.50); Hematocrit 43.1 % (37.0-53.0); Immature Granulocytes Abs Auto 0.01 K/uL (0.00-0.30); Immature Granulocytes Pct Auto 0.1 %; Lymphocytes Percent Auto 14.7 % (20-44); Mean Corpuscular HGB Conc 33 gm/dL (32-36); Mean Corpuscular Hemoglobin 30 pg (26-34); Mean Corpuscular Volume 93 fL (80-100); Monocytes Percent Auto 5.9 % (0.0-11.0); Neutrophils Percent Auto 77.9 % (42.0-72.0); Platelet Count* 154 K/uL (140-440); RDW Coefficient of Variation % 12.6 % (11.5-15.5); Red Blood Count 4.65 m/uL (4.30-5.90); White Blood Count* 8.37 K/uL (4.50-11.00)
[2024-08-02 14:07] LABS: Slide Review Reflex No
[2024-08-02 14:15] LABS: Chloride* 105 mmol/L (96-114)
[2024-08-02 14:16] LABS: Potassium* 4.3 mmol/L (3.6-5.1); Sodium* 140 mmol/L (135-149)
[2024-08-02 14:18] LABS: Creatinine* 0.8 mg/dL (0.5-1.5); Est. Creatinine Clearance* 64.67; Estimated Glomerular Filt Rate 89 ml/min
[2024-08-02 14:19] LABS: Anion Gap 6 mEq/L (7-15); Blood Urea Nitrogen* 31 mg/dL (7-30); Carbon Dioxide* 29 mmol/L (20-32); Glucose* 106 mg/dL (60-115)
[2024-08-02 15:17] LABS: Troponin I* < 0.01 ng/mL (0.01-0.04)
== END 2024-08-02 15:28 | disposition home or self-care (01) ==
PROVIDERS: Emergency Provider Emergency Medicine Emergency Medical Services; PCP Internal Medicine
DX: I95.1 Orthostatic hypotension (principal)
CPT/HCPCS: 36415; 70450; 70544; 70553; 80048; 84484; 85025; 93005; 99284; 99285; A9575

== ENCOUNTER 2024-12-14 05:25 | Emergency (ER) | payer MEDICARE, BC, SELFPAY ==
--- OUTSIDE RECORDS SUMMARY | 2018-04-02 06:03 | XMS_ITS | Continuity of Care Document ---
Author Organization [facility] Address [address] [address] [place] [address] Phone Care Team Providers Care [employer] Name Role Phone Link Jeb WHEATLEY Unavailable Unavailable Allergies, Adverse Reactions, Alerts Substance Reaction Status Criticality No Known allergies Medications Medication Instructions Dosage Effective Dates (start - stop) Status Comments aspirin 81 mg chewable tablet chew 1 tablet by oral route every day 81 MG - Active Vitamin D3 1,000 unit capsule take 1 Capsule by Oral route once 1 Capsule - Active Procedures Procedure Date Colonoscopy Flex; W/bx 1/mx Level Iv-surg Path Gross/micro 14 Colonoscopy Flex; W/remov Les- 08 Level Iv-surg Path Gross/micro 08 Advance Directives Directive Yes / No Effective Date File Name No Information Encounters Encounter Description Practice Location Reason(s) For Visit Diagnoses Date Provider Providers Copied on Encounter [facility], [address] [address], [place], [place], [id number], [place] tel:[phone] [facility] No Information 8 Link MD Russ. [address] [facility], [facility] [address], [place], [place], [id number], [place]. tel:[phone] [facility], [address] [address], [place], [place], [id number], [place] tel:[phone] [facility] Colon polypPersonal history of colon polypsPersonal History Colon PolypsBenign Neoplasm Colon Mar-201 4 Shwetha Sanchez. [address] [facility], [address], [place], [place], [id number], [place]. tel:[phone] Referring Provider: Referral Self, USE FOR SELF REFERRALS. [facility] [address] [address], [place], [place], [id number], [place] tel:[phone] Rui [facility] Colon Cancer ScreeningBenig n Neoplasm Lg Bowel 200 8 No Information Family History Family Member Type Diagnosis Age At Onset No Information Payers Payer name Insurance type Covered constitution party ID Authoriza tion(s) No Information Social History Type Description Quantity Date Captured Comments Sex Male Smoking Status No Information Chief Complaint And Reason For Visit No Information Reason For Referral Reason For Referral No Information History Of Present Illness Encounter Date Complaint History Of Prese nt Illness No Information Functional Status Date Functional Assessmen t No Information Instructions Date Instruction Additional Infor mation Colon Cancer Prevention Related to Colon polyp Colon Polyps Related to Colon polyp Assessments Type Assessment Date No Information Patient Care Teams Name Effective Dates (start - stop) Status Members No Information
--- OUTSIDE RECORDS SUMMARY | 2018-04-02 06:03 | XMS_ITS | Continuity of Care Document ---
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, [address] [address], [place], [place], [address], [place] tel:[phone] [facility] No Information 8 Link MD Russ. [address] [facility], [facility] [address], [place], [place], [address], [place]. tel:[phone] [facility], [address] [address], [place], [place], [address], [place] tel:[phone] [facility] Colon polypPersonal history of colon polypsPersonal History Colon PolypsBenign Neoplasm Colon Mar-201 4 Shwetha Sanchez. [address] [facility], [address], [place], [place], [address], [place]. tel:[phone] Referring Provider: Referral Self, USE FOR SELF REFERRALS. [facility] [address] [address], [place], [place], [address], [place] tel:[phone] Rui [facility] Colon Cancer ScreeningBenig n [...]
--- OUTSIDE RECORDS SUMMARY | 2024-01-30 03:45 | XMS_ITS | Encounter Summary ---
Author Name [facility] [place] [facility] [place] [facility] [place] Address [address] [place] [address] Care Team Providers Care Profile Saw Operator Name Role Phone CARLYN SOTOMAYOR Primary Care Provider Unav ailable Insurance Providers: All historical and current Section Date Range: From patient's date of to the date document was created. This section includes the names of all active insurance providers for the patient. Insurance Provider Type of Coverage Plan Name Start of Policy Coverage End of Policy Coverage Group Number Member ID Insurance Provider's Telephone Number Policy Tobar's Name Patient's Relationship to Policy Tobar [facility] (WNR) MEDICARE ADVANTAGE [facility] (WNR) Jul 07, 2016 [id number] [phone] KWAN ARZATE PATIENT Selected Encounter This section includes the information on record at [place] for the Encounter. Date/Time Encounter Type Encounter Description Reason Provider Source Jan 30, 2024 08:45 AM OFF/OP EST NOVEMBER X REQ PHY/QHP AUDIOLOGY ICD-10-CM Z01.118 Encntr for exam of ears and hearing w oth abnormal findings LARA MURRAY IHMadalyn Encounter Template Text not used by [place] Assessments - Encounter Diagnoses This section includes the primary and secondary diagnoses documented for the Encounter. Date/Time Primary/Secondary Diagnosis Diagnosis Name Provider Source Jan 30, 2024 11:25 AM PRIMARY Encntr for exam of ears and hearing w oth abnormal findings SHELL SNOWDEN [facility] Jan 30, 2024 11:25 AM SECONDARY Encounter for fitting and adjustment of hearing aid SHELL SNOWDEN [facility] Jan 30, 2024 11:25 AM SECONDARY Foreign body in left ear, initial encounter SANDI OCHOA [facility] Jan 30, 2024 11:25 AM SECONDARY Impacted cerumen, bilateral RUSADNI BAUER [facility] Jan 30, 2024 11:25 AM SECONDARY Sensorineural hearing loss, bilateral SHELL SNOWDEN [facility] Social History: Smoking Status (Most current) and Tobacco Use (All prior to encounter date) This section includes the most current, and the historical, smoking and tobacco- related health factors from the [place] facility where the Encounter took place. Current Smoking Status This section includes the most current smoking, or tobacco-related health factor, from the [place] facility where the Encounter took place. Date/Time Current Smoking Status Comment Facil ity Oct 21, 2018 09:57 AM [place]-TOBACCO NEVER USED [facility] Encounter Notes: All associated encounter notes This section contains the clinical notes associated to the Encounter. Date/Time Encounter Note(s) Provider Source Jan 30, 2024 11:26 AM AUDIOLOGY NOTE: LOCAL TITLE: AUDIOLOGY CLINIC NOTE STANDARD TITLE: AUDIOLOGY NOTE DATE OF NOTE: JAN 30, 2024@11:26 ENTRY DATE: JAN 30, 2024@11:26:29 AUTHOR: SHELL SNOWDEN COSIGNER: LARA MURRAY URGENCY: STATUS: COMPLETED SUBJECT: Hearing exam and hearing aid follow up DIAGNOSIS: Encounter for exam of ears and hearing with other abnormal findings Sensorineural hearing loss, bilateral Encounter for fitting and adjustment of hearing aid REASON FOR VISIT: THERAPEUTIC:HEARING AID EVALUATION, 60 minutes: HISTORY: [place] was seen in the clinic today for a hearing evaluation. He shared that he has been having more difficulty hearing recently, especially when in noisier environments and hearing his when he is driving. He feels pressure in his ears when he wakes up, but reported that this usually clears up within a couple of hours. The denied any other significant otologic symptoms today. The was last seen in this clinic on 01/02/2019 The is NOT Service Connected for Hearing Loss/Tinnitus. [place] was unaccompanied. The currently wears the follow hearing aids: Hearing Aids (right and left): Fit on 05/21/2023 Make: Oticon Model: Real 1 miniRITE-R (L), CROS PX (R) Acoustics: 2(60) receivers, 8mm open schafer domes Serial #s: [id number] (L), [id number] (R) Accessories: EduMic (ordered 01/30/2024) PROCEDURES: OTOSCOPY Bilaterally: Cerumen removed by nurse in both ears. Three domes were removed from the left ear. Normal anatomy post-removal. TYMPANOMETRY: RIGHT EAR: Type C Pressure: Negative Compliance: Normal Volume: Normal LEFT EAR: Type A Pressure: Normal Compliance: Normal Volume: Normal The was informed that the negative pressure in his right ear could be due to congestion or allergies. He was urged to reach out to primary care if symptoms of congestion worsen or if new ear symptoms arise. AUDIOMETRICS: Air conduction, Bone conduction, Speech testing Transducer: Insert phones, Circumaural headphones Reliability: good RIGHT EAR (Hz) 250 752 302 0360 1500 2000 3000 4000 6000 8000 Air: see Audiogram display under Tools->Audiology->ROES or see GINA database. Bone: see Audiogram display under Tools->Audiology->ROES or see GINA database. LEFT EAR (Hz) 250 171 724 2736 1500 2000 3000 4000 6000 8000 Air: see Audiogram display under Tools->Audiology->ROES or see GINA database. Bone: see Audiogram display under Tools->Audiology->ROES or see GINA database. - All thresholds are in dB HL * = Masked Threshold SPEECH RECOGNITION THRESHOLD (SRT): Spondees Right: 65 dB HL Left: 15 dB HL Pure tone results were consistent with speech equine pharmacology technician thresholds. WORD RECOGNITION: /W-22 word list Right Ear: 28% Level: 90* dB Left Ear: 96% Level: 65* dB SUMMARY: Hearing is worse compared to the last examination. Pure tone results are overall stable, but word recognition in the right ear showed a borderline significant decrease. RIGHT EAR: Type C tympanogram. Moderately severe to profound SNHL with very poor word recognition. LEFT EAR: Type A tympanogram. Hearing WNL from 250-2000 Hz, mild sloping to moderate SNHL from 0855-5796 Hz. NEEDS ASSESSMENT FOR ASSISTIVE LISTENING DEVICE (ALD): Given the 's degree/severity of hearing loss, discussed incorporating an accessory device to improve hearing and communication abilities in adverse listening environments. A needs assessment for an ALD was completed today. The would benefit from a remote microphone to use while driving so that he can hear his , and to use in noisy environments. The following accessory was ordered: - EduMic HEARING AID REPAIR/MODIFY X 2: - The arrived with Phonak domes on his Oticon hearing aids, which do not fit securely on the receivers and likely contributed to the domes coming off in his ears. - Both hearing aids were cleaned and checked and the domes were switched to Oticon 8mm open schafer domes, modifications to hearing aids [id number] (L), [id number] (R) FITTING/ORIENTATION/REPROGRA MMING: - The 's aids were connected to the software and a firmware update was completed for the left (no update for right CROS). - The endorsed good sound quality. PLAN: - 8mm Oticon domes were ordered for the in [facility]. - An EduMic was ordered for the and can be mailed to his address. - Regular follow up recommended to monitor for changes in hearing, or as medically indicated. - is in agreement with this plan. TECH NOTE: - Please mail EduMic to the [place] when it arrives. /donnell/ Ronald Hawkins Ph.D. Hardware Supplies Sales Representative Chief, Audiology Signed: 01/30/2024 12:20 for SHELL SNOWDEN Audiology Student /donnell/ Ronald Hawkins Ph.D. Hardware Supplies Sales Representative Chief, Audiology Cosigned: 01/30/2024 12:20 LARA MURRAY [facility] Jan 30, 2024 09:10 AM AUDIOLOGY NOTE: LOCAL TITLE: AUDIOLOGY CLINIC NURSING NOTE STANDARD TITLE: AUDIOLOGY NOTE DATE OF NOTE: JAN 30, 2024@09:10 ENTRY DATE: JAN 30, 2024@09:10:42 AUTHOR: SANDI OCHOA COSIGNER: URGENCY: STATUS: COMPLETED Reason for visit: Examination of hearing. Cerumen/dome removal. Effusion (drainage) in ear canals: No Recent Otalgia (pain) in ear canals: No Pruritus (itching) in ear canals: No History of ear surgery: No History/Currently wears hearing aids: Yes MARTIN's Right/Left Cerumen Removed: Yes AD soft impaction removed soft impaction removed and three domes Patient tolerated procedure. Nurse Patient Education: Barriers to Learning/Special Needs:Hearing Limitations Participant(s) can repeat instructions to Continue with current ear hygiene Refrain from using cotton swabs in ears Ear Care handout provided. PLAN: Follow up in: PRN (as needed) /donnell/ SANDI OCHOA LPN LICENSED PRACTICAL NURSE Signed: 01/30/2024 15:43 SANDI OCHOA [facility]
--- OUTSIDE RECORDS SUMMARY | 2024-12-14 00:26 | XMS_ITS | Continuity of Care Document ---
Author Name [facility] Organization [facility] Care Team Providers Care Screen Printing Stencil Preparer Name Role Phone [facility] Unavailable Unavailable Problems Combined list of problems from Department of Defense and [facility] facilities. It does not include entries that were removed or entered in error. Problem Status Onset Date Problem Type Date of Resolution Comments Source Hearing loss Active Condition Oct 30, 2018 Entered By: ANNIE SOTOMAYOR Comment: Right ear [facility] Raised prostate specific antigen Active Condition [facility] Tinea cruris Active Condition [facility] Diagnosis: ICD-10-CM Z01.118 Encntr for exam of ears and hearing w oth abnormal findings Active Diagnosis [facility] Encounters Combined list of: 1) Encounters from Department of Veterans Affairs facilities going backup to the last 18 months, not all [place] inpatient encounters are included; 2) Encounters from the Department of [facility] facilities going backup to 280 months. Location Location Details Encounter Type Encounter Number Reason For Visit Attending Provider ADM Date DC Date Status Disposition Source [facility] Outpatient Encounter [id number] 10/07 [facility] [place] [facility] Outpatient Encounter [id number] 10/07 [facility] [place] [facility] Outpatient Encounter [id number] 01/05 [facility] [place] [facility] [place]/OP EST NOVEMBER X REQ PHY/QHP [id number] Diagnos is: ICD-10- CM Z01.118 Encntr for exam of ears and hearing w oth abnorma l finding s CRYSTAL MURRAY AEL F 01/29 [facility] [place] [facility] Outpatient Encounter [id number] 10/19 [facility] [place] [facility] Outpatient Encounter [id number] 10/20 [facility] [place] [facility] Outpatient Encounter [id number] 10/27 [place] [facility] [place] [facility] Out[place] Encounter [id number] 10/29 [facility] Social History Combined list of available smoking, tobacco, and other social history from Department of Defense and Veterans Affairs facilities. Social History Type Response Date Comment [facility] e Tobacco smoking status [facility] NEVER USED 10/21/2018 [facility]
--- OUTSIDE RECORDS SUMMARY | 2024-12-14 00:26 | XMS_ITS | Continuity of Care Document ---
Author Name [facility] Organization [facility] Care Team Providers Care Safety Compliance Specialist Name Role Phone [facility] Unavailable Unavailable Problems Combined list of problems from Department of Defense and [facility] facilities. It does not include entries that were removed or entered in error. Problem Status Onset Date Problem Type Date of Resolution Comments Source Hearing loss Active Condition Oct 30, 2018 Entered By: ANNIE SOTOMAYOR Comment: Right ear [facility] Raised prostate specific antigen Active Condition [facility] Tinea cruris Active Condition [facility] Diagnosis: ICD-10-CM Z01.118 Encntr for exam of ears and hearing w oth abnormal findings Active Diagnosis [facility] Encounters Combined list of: 1) Encounters from Department of Veterans Affairs facilities going backup to the last 18 months, not all [place] inpatient encounters are included; 2) Encounters from the Department of [facility] facilities going backup to 280 months. Location Location Details Encounter Type Encounter Number Reason For Visit Attending Provider ADM Date DC Date Status Disposition Source [facility] Outpatient Encounter [id number] 10/07 [facility] [place] [facility] Outpatient Encounter [id number] 10/07 [facility] [place] [facility] Outpatient Encounter [id number] 01/05 [facility] [place] [facility] OFF/OP EST NOVEMBER X REQ PHY/QHP [id number] Diagnos is: ICD-10- CM Z01.118 Encntr for exam of ears and hearing w oth abnorma l finding s CRYSTAL MURRAY AEL F 01/29 [facility] [place] [facility] Outpatient Encounter [id number] 10/19 [facility] [place] [facility] Outpatient Encounter [id number] 10/20 [facility] [place] [facility] Outpatient Encounter [id number] 10/27 [facility] [place] [facility] Outpatient Encounter [id number] 10/29 [facility] Social History Combined list of available smoking, tobacco, and other social history from Department of Defense and Veterans Affairs facilities. Social History Type Response Date Comment [facility] e Tobacco smoking status [facility] NEVER USED 10/21/2018 [facility]
--- OUTSIDE RECORDS SUMMARY | 2024-12-14 05:27 | XMS_ITS | Encounter Summary ---
Author Organization [facility] Address [address] [place] [address] Care Team Providers Care Event Sales Manager Name Role Phone No Ref-Primary, Physician Primary Care Provider Bryon Bell MD Unavailable [phone] Bryon Bell MD Unavailable [phone] Anyi Broderick MD Unavailable Nikki Pierre RN Unavailable Unavailable Bryon Bell MD Primary Care Provider [phone] Bryon Bell MD Unavailable [phone] Amanda Ibrahim MD Unavailable UnavailLaureen Doe APRN DIRECTOR SALES SUPPORT Unavailable [phone] Franny Shrestha-C Unavailable [phone] Franny Shrestha-C Unavailable [phone] Anyi Broderick MD Unavailable Bryon Bell MD Unavailable [phone] Anyi Broderick MD Unavailable Vitaliy Solo MD Primary Care Provider Bryon Bell MD Unavailable [phone] Anyi Broderick MD Unavailable Aimee Mascorro MD Unavailable [phone] Franny ShresthaC Unavailable [phone] Amanda Ibrahim MD Unavailable Unavailabl joni [facility] Encounter Details Date Type Department Care Team (Late st Contact Info) Description 08/26/2018 MyC Medical Advice [facility] [address] [place] [address] [place] [address] [facility] [place] [address] Social History Tobacco Use Types Packs/Day Years Used Date Smoking Tobacco: Former Smokeless Tobacco: Never Alcohol Use Standard Drinks/Week Comments Yes 0 (1 standard drink = 0.6 oz pur e alcohol) PHQ-2 Answer Date Recorded PHQ-2 Score 0 08/21/2018 Sex and Gender Information Value Date Recorded Sex Assigned at Male 03/03/2021 2:33 PM CDT 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 Gender Identity Male 03/03/2021 2:33 PM CDT Sexual Orientation Straight 03/03/2021 2: 33 PM CDT documented as of this encounter Plan of Treatment Not on file documented as of this encounter Visit Diagnoses Not on filedocumented in this encounter Care Teams Event Sales Manager Relationship Specialty Start Date End Date No Ref-Primary, Physician PCP - General 08/14/18 03/05/21 [place] [address] [place] [address] PCP - Assigned PCP 07/30/18 09/08/18 Bryon Bell MD PCP - General Family Medicine 03/06/21 05/05/22 Vitaliy Solo MD [facility] [address] [place] [address] PCP - General Emergency Medicine 07/19/22 [place] [address] [place] [address] Assigned PCP 07/30/18 01/18/21 [place] [address] [place] [address] Assigned PCP 01/19/21 03/10/21 Nikki Pierre, RN Personal Advocate & Liaison (PAL) Family Medicine 03/06/21 03/25/22 [place] [address] [place] [address] Assigned PCP 03/11/21 01/18/22 Amanda Ibrahim MD Assigned Heart and Vascular Provider 04/22/21 05/26/21 Laureen Dye APRN DIRECTOR SALES SUPPORT [address] [place] [address] Assigned Heart and Vascular Provider 05/27/21 01/17/23 Franny Shrestha PA-C [address] [place] [address] Physician Transplant Surgeon Urology 10/01/21 Franny Shrestha PA-C [address] [place] [address] Assigned Surgical Provider 12/29/21 11/22/22 [place] [address] [place] [address] Assigned PCP 01/19/22 03/08/22 [place] [address] [place] [address] Assigned PCP 03/09/22 03/22/22 [place] [address] [place] [address] Assigned PCP 03/23/22 06/21/22 [place] [address] [place] [address] Family Medicine 08/27/22 [place] [address] [place] [address] Assigned PCP 08/31/22 10/27/23 Aimee Msacorro MD [address] [place] [address] Assigned Surgical Provider 11/23/22 12/20/22 Franny Shrestha PA-C [address] [place] [address] Assigned Surgical Provider 12/21/22 05/28/24 Amanda Ibrahim MD Assigned Heart and Vascular Provider 01/18/23 01/26/24 [facility] [address] [place] [address] Assigned PCP 10/28/23 10/26/24 documented as of this encounter
--- OUTSIDE RECORDS SUMMARY | 2024-12-14 05:27 | XMS_ITS | Encounter Summary ---
Author Organization [place] Address [address] [place] [address] Care Team Providers Care Athletic Scout Name Role Phone No Ref-Primary, Physician Primary Care Provider Bryon Bell MD Unavailable [phone] Bryon Bell MD Unavailable [phone] Anyi Broderick MD Unavailable Nikki Pierre RN Unavailable Unavailable Bryon Bell MD Primary Care Provider + [phone] Bryon Bell MD Unavailable [phone] Amanda Ibrahim MD Unavailable UnavailLaureen Doe APRN TIMBER MILL WORKER Unavailable [phone] Franny Shrestha-C Unavailable [phone] Franny Shrestha-C Unavailable [phone] Anyi Broderick MD Unavailable Bryon Bell MD Unavailable [phone] Anyi Broderick MD Unavailable Vitaliy Solo MD Primary Care Provider Bryon Bell MD Unavailable [phone] Anyi Broderick MD Unavailable Aimee Mascorro MD Unavailable [phone] Franny ShresthaC Unavailable [phone] Amanda Ibrahim MD Unavailable Unavailabl joni [facility] Encounter Details Date Type Department Care Team (Late st Contact Info) Description 08/21/2018 MyC Medical Advice [facility] [address] [place] [address] [place] [address] [place] [address] Social History Tobacco Use Types Packs/Day Years Used Date Smoking Tobacco: Former Smokeless Tobacco: Never Alcohol Use Standard Drinks/Week Comments Yes 0 (1 standard drink = 0.6 oz pur e alcohol) PHQ-2 Answer Date Recorded PHQ-2 Score 0 08/21/2018 Sex and Gender Information Value Date Recorded Sex Assigned at Male 03/03/2021 2:33 PM CDT 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 Gender Identity Male 03/03/2021 2:33 PM CDT Sexual Orientation Straight 03/03/2021 2: 33 PM CDT documented as of this encounter Plan of Treatment Not on file documented as of this encounter Visit Diagnoses Not on filedocumented in this encounter Care Teams Athletic Scout Relationship Specialty Start Date End Date No Ref-Primary, Physician PCP - General 08/14/18 03/05/21 [place] [address] [place] [address] PCP - Assigned PCP 07/30/18 09/08/18 Bryon Bell MD PCP - General Family Medicine 03/06/21 05/05/22 Vitaliy Solo MD [facility] [address] [place] [address] PCP - General Emergency Medicine 07/19/22 [place] [address] [place] [address] Assigned PCP 07/30/18 01/18/21 [place] [address] [place] [address] Assigned PCP 01/19/21 03/10/21 Nikki Pierre, RN Personal Advocate & Liaison (PAL) Family Medicine 03/06/21 03/25/22 [place] [address] [place] [address] Assigned PCP 03/11/21 01/18/22 Amanda Ibrahim MD Assigned Heart and Vascular Provider 04/22/21 05/26/21 Laureen Dye APRN TIMBER MILL WORKER [address] [place] [address] Assigned Heart and Vascular Provider 05/27/21 01/17/23 Franny Shrestha PA-C [address] [place] [address] Physician Parking Lot Signaler Urology 10/01/21 Franny Shrestha PA-C [address] [place] [address] Assigned Surgical Provider 12/29/21 11/22/22 [place] [address] [place] [address] Assigned PCP 01/19/22 03/08/22 [place] [address] [place] [address] Assigned PCP 03/09/22 03/22/22 [place] [address] [place] [address] Assigned PCP 03/23/22 06/21/22 [place] [address] [place] [address] Family Medicine 08/27/22 [place] [address] [place] [address] Assigned PCP 08/31/22 10/27/23 Aimee Mascorro MD [address] [place] [address] Assigned Surgical Provider 11/23/22 12/20/22 Franny Shrestha PA-C [address] [place] [address] Assigned Surgical Provider 12/21/22 05/28/24 Amanda Ibrahim MD Assigned Heart and Vascular Provider 01/18/23 01/26/24 [facility] [address] [place] [address] Assigned PCP 10/28/23 10/26/24 documented as of this encounter
--- OUTSIDE RECORDS SUMMARY | 2024-12-14 05:27 | XMS_ITS | Clinical Summary ---
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 NATURAL VITAMIN D ORAL QIEUSER QIEUSER SPIRONOLACTONE 25 MG TABS Take 1 Tablet (25 mg) by mouth once daily. spironolactone [id number] QIEUSER QIEUSER METOPROLOL SUCCINATE ER 50 MG [id number] Take 50 mg by mouth once daily. metoprolol succinate 28936941299 QIEUSER QIEUSER LISINOPRIL 40 MG TABS Take 40 mg by mouth once daily. lisinopril [id number] QIEUSER QIEUSER CLOTRIMAZOLE-BETA METHASONE 1-0.05 % CREA Apply small amount to affected area(s) 2 times daily clotrimazole-bet amethasone 15220399876 QIEUSER QIEUSER ELIQUIS 5 MG TABS TAKE 1 TABLET (5 MG) BY MOUTH 2 TIMES DAILY apixaban [id number] QIEUSER QIEUSER AMIODARONE HCL 200 MG TABS Take 200 mg by mouth once daily. amiodarone 65383062237 QIEUSER QIEUSER Medications Administered No information available. Allergies, Adverse Reactions, Alerts No information available. Results Date Name Value Unit Range Flag Description Office Visit: Office Visit B rain mass MRI/CT at [facility] Recor MEDS REVIEW Done Documenta tion of [...] Procedures Code Procedure Name Date Entry Date [id number] MRI-Brain W/WO [id number] MRA-Neck W/WO CPT-B1582B MultiHance Gadoliniu m-based MR Contrast - 15 ml vial CPT-96467 MRA Neck W/WO CPT-04887 MRI Brain W/WO [id number] Documentation of current medicatio ns Vital Signs Date Name Value Unit Description Weight Measured 194 [lb_av] weight E& M Weight Measured 194 [lb_av] weight E& M Heart Rate 68 /min pulse rate Immunizations No information available. Advance Directives No information available.
--- OUTSIDE RECORDS SUMMARY | 2024-12-14 05:28 | XMS_ITS | Encounter Summary ---
Author Organization [place] [facility] Address [address] [place] [address] Care Team Providers Care Perinatal Instructor Name Role Phone Page, Nikki Vega RN Unavailable Unavailable Bryon Bell MD Primary Care Provider + [phone] Bryon Bell MD Unavailable [phone] Laureen Dye APRN FORMING OPERATOR Unavailable [phone] Franny Shrestha-C Unavailable [phone] Franny Shrestha-C Unavailable [phone] Anyi Broderick MD Unavailable Bryon Bell MD Unavailable [phone] Anyi Broderikc MD Unavailable Vitaliy Solo MD Primary Care Provider Bryon Bell MD Unavailable [phone] Anyi Broderick MD Unavailable Aimee Mascorro MD Unavailable [phone] Franny Shrestha-C Unavailable [phone] Amanda Ibrahim MD Un[facility] Reason for Visit * Reason Onset Date Comments MyChart Communication 10/01/2021 KRAIG daley ch - results Encounter Details Date Type Department Care Team (Latest Contact Info) Description 10/01/2021 [place] Medical Advice [facility] [address] [place] [address] Nikki Pierre RN MyChart Communication (PAL outreach [...] PM CDT 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 Letter sent- [facility] will monitor for f/u Nikki Pierre RN * Telephone Encounter - Nikki Pierre RN - 10/05/2021 12:18 PM CDT LM for call back - See below Nikki Pierre RN documented in this encounter Plan of Treatment Not on file documented as of this encounter Visit Diagnoses Not on filedocumented in this encounter Care Teams Perinatal Instructor Relationship Specialty Start Date End Date Bryon Bell MD PCP - General Family Medicine 03/06/21 05/05/22 Vitaliy Solo MD [facility] [address] [place] [address] PCP - General Emergency Medicine 07/19/22 Nikki Pierre, RN Personal Advocate & Liaison (PAL) Family Medicine 03/06/21 03/25/22 [place] [address] [place] [address] Assigned PCP 03/11/21 01/18/22 Laureen Dye APRN FORMING OPERATOR [address] [place] [address] Assigned Heart and Vascular Provider 05/27/21 01/17/23 Franny Shrestha PA-C [address] [place] [address] Physician Shelter Supervisor Urology 10/01/21 Franny Shrestha PA-C [address] [place] [address] Assigned Surgical Provider 12/29/21 11/22/22 [place] [address] [place] [address] Assigned PCP 01/19/22 03/08/22 [place] [address] [place] [address] Assigned PCP 03/09/22 03/22/22 [place] [address] [place] [address] Assigned PCP 03/23/22 06/21/22 [place] [address] [place] [address] Family Medicine 08/27/22 [place] [address] [place] [address] Assigned PCP 08/31/22 10/27/23 Aimee Mascorro MD [address] [place] [address] Assigned Surgical Provider 11/23/22 12/20/22 Franny Shrestha PA-C [address] [place] [address] Assigned Surgical Provider 12/21/22 05/28/24 Amanda Ibrahim MD Assigned Heart and Vascular Provider 01/18/23 01/26/24 [facility] [address] [place] [address] Assigned PCP 10/28/23 10/26/24 documented as of this encounter
--- OUTSIDE RECORDS SUMMARY | 2024-12-14 05:28 | XMS_ITS | Encounter Summary ---
Author Organization [facility] Address [address] [place] [address] Care Team Providers Care Assembler Sandal Parts Name Role Phone Page, Nikki Vega RN Unavailable Unavailable Bryon Bell MD Primary Care Provider + [phone] Bryon Bell MD Unavailable [phone] Laureen Dye APRN KITCHEN PORTER Unavailable [phone] Franny Shrestha-C Unavailable [phone] Franny Shrestha-C Unavailable [phone] Anyi Broderick MD Unavailable Bryon Bell MD Unavailable Anyi Broderick MD Unavailable Vitaliy Solo MD Primary Care Provider Bryon Bell MD Unavailable Anyi Broderick MD Unavailable Aimee Mascorro MD Unavailable [phone] Franny Shrestha-C Unavailable Amanda Ibrahim MD Unavailable [facility] Unavailabl e Encounter Details Date Type Department Care Team (Late st Contact Info) Description 09/27/2021 MyC Medical Advice [facility] [address] [place] [address] [place] [address] [place] [address] Social History Tobacco Use Types Packs/Day Years Used Date Smoking Tobacco: Never Smokeless Tobacco: Never Alcohol Use Standard Drinks/Week Comments Yes 0 (1 standard drink = 0.6 oz pur e alcohol) occ PHQ-2 Answer Date Recorded PHQ-2 Score 0 09/06/2021 Sex and Gender Information Value Date Recorded Sex Assigned at Male 03/03/2021 2:33 PM CDT 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 Gender Identity Male 03/03/2021 2:33 PM CDT [...] on filedocumented in this encounter Care Teams Assembler Sandal Parts Relationship Specialty Start Date End Date Bryon Bell MD PCP - General Family Medicine 03/06/21 05/05/22 Vitaliy Solo MD [facility] [address] [place] [address] PCP - General Emergency Medicine 07/19/22 Nikki Pierre, SHERMAN Personal Advocate & Liaison (PAL) Family Medicine 03/06/21 03/25/22 [place] [address] [place] [address] Assigned PCP 03/11/21 01/18/22 Laureen Dye APRN KITCHEN PORTER [address] [place] [address] Assigned Heart and Vascular Provider 05/27/21 01/17/23 Franny Shrestha PA-C [address] [place] [address] Physician Glass Polisher Urology 10/01/21 Franny Shrestha PA-C [address] [place] [address] Assigned Surgical Provider 12/29/21 11/22/22 [place] [address] [place] [address] Assigned PCP 01/19/22 03/08/22 [place] [address] [place] [address] Assigned PCP 03/09/22 03/22/22 [place] [address] [place] [address] Assigned PCP 03/23/22 06/21/22 [place] [address] [place] [address] Family Medicine 08/27/22 [place] [address] [place] [address] Assigned PCP 08/31/22 10/27/23 Aimee Mascorro MD [address], [address] [place] [address] Assigned Surgical Provider 11/23/22 12/20/22 Franny Shrestha PA-C [address] [place] [address] Assigned Surgical Provider 12/21/22 05/28/24 Amanda Ibrahim MD Assigned Heart and Vascular Provider 01/18/23 01/26/24 [facility] [address] [place] [address] Assigned PCP 10/28/23 10/26/24 documented as of this encounter
--- OUTSIDE RECORDS SUMMARY | 2024-12-14 05:28 | XMS_ITS | Encounter Summary ---
Author Organization [facility] Address [address] [place] [address] Care Team Providers Care Supervisor Bit And Shank Department Name Role Phone No Ref-Primary, Physician Primary Care Provider Bryon Bell MD Unavailable [phone] Anyi Broderick MD Unavailable Nikki Pierre RN Unavailable Unavailable Bryon Bell MD Primary Care Provider + [phone] Bryon Bell MD Unavailable [phone] Amanda Ibrahim MD Unavailable Unavailabl [facility] Unavailable [phone] Franny Shrestha-C Unavailable [phone] Franny Shrestha-C Unavailable [phone] Anyi Broderick MD Unavailable Bryon Bell MD Unavailable [phone] Anyi Broderick MD Unavailable Vitaliy Solo MD Primary Care Provider Bryon Bell MD Unavailable [phone] Anyi Broderick MD Unavailable Aimee Mascorro MD Unavailable [phone] Franny Shrestha-C Unavailable [phone] Amanda Ibrahim MD Un[facility] Reason for Visit * Reason Onset Date Comments MyChart Communication 03/09/2020 Encounter Details Date Type Department Care Team (Late st Contact Info) Description 03/09/2020 MyC Medical Advice [facility] [address] [place] [address] [place] [address] [place] [address] MyChart Communication Social History Tobacco Use Types [...] PM CDT 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 METAL NEUTRALIZER Gender Identity Male 03/03/2021 2:33 PM CDT [...] on filedocumented in this encounter Care Teams Supervisor Bit And Shank Department Relationship Specialty Start Date End Date No Ref-Primary, Physician PCP - General 08/14/18 03/05/21 Bryon Bell MD PCP - General Family Medicine 03/06/21 05/05/22 Vitaliy Solo MD [facility] [address] [place] [address] PCP - General Emergency Medicine 07/19/22 [place] [address] [place] [address] Assigned PCP 07/30/18 01/18/21 [place] [address] [place] [address] Assigned PCP 01/19/21 03/10/21 Nikki Pierre, SHERMAN Personal Advocate & Liaison (PAL) Family Medicine 03/06/21 03/25/22 [place] [address] [place] [address] Assigned PCP 03/11/21 01/18/22 Amanda Ibrahim MD Assigned Heart and Vascular Provider 04/22/21 05/26/21 Laureen Dye APRN WWE WRESTLER [address] [place] [address] Assigned Heart and Vascular Provider 05/27/21 01/17/23 Franny Shrestha PA-C [address] [place] [address] Physician Restaurant Mgr Urology 10/01/21 Franny Shrestha PA-C [address] [place] [address] Assigned Surgical Provider 12/29/21 11/22/22 [place] [address] [place] [address] Assigned PCP 01/19/22 03/08/22 [place] [address] [address] [place] [address] Assigned PCP 03/09/22 03/22/22 [place] [address] [place] [address] Assigned PCP 03/23/22 06/21/22 [place] [address] [place] [address] Family Medicine 08/27/22 [place] [address] [place] [address] Assigned PCP 08/31/22 10/27/23 Aimee Mascorro MD [address] [place] [address] Assigned Surgical Provider 11/23/22 12/20/22 Franny Shrestha PA-C [address] [place] [address] Assigned Surgical Provider 12/21/22 05/28/24 Amanda Ibrahim MD Assigned Heart and Vascular Provider 01/18/23 01/26/24 [facility] [address] [place] [address] Assigned PCP 10/28/23 10/26/24 documented as of this encounter
--- OUTSIDE RECORDS SUMMARY | 2024-12-14 05:28 | XMS_ITS | Encounter Summary ---
Author Organization [place] Address [address] [place] [address] Care Team Providers Care Accounts Clerk Name Role Phone Page, Nikki Vega RN Unavailable Unavailable Bryon Bell MD Primary Care Provider + [phone] Bryon Bell MD Unavailable [phone] Laureen Dye APRN WIRE FENCE ERECTOR Unavailable [phone] Franny Shrestha-C Unavailable [phone] Franny Shrestha-C Unavailable [phone] Anyi Broderick MD Unavailable Bryon Bell MD Unavailable Anyi Broderick MD Unavailable Vitaliy Solo MD Primary Care Provider Bryon Bell MD Unavailable [phone] Anyi Broderick MD Unavailable Aimee Mascorro MD Unavailable [phone] Franny Shrestha-C Unavailable Amanda Ibrahim MD Un[facility] Reason for Visit * Reason Onset Date Comments MyChart Communication 06/06/2021 Encounter Details Date Type Department Care Team (Late st Contact Info) Description 06/06/2021 [place]ora Medical Advice [facility] [address] [place] [address] [place] [address] [place] [address] MyChart Communication Social History Tobacco Use Types [...] PM CDT 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 LIEUTENANT/DEPUTY Gender Identity Male 03/03/2021 2:33 PM CDT Sexual Orientation Straight 03/03/2021 2: 33 PM CDT COVID-19 Exposure Response Date Recorded In the last month, have you been in contact with someone who was confirmed or suspected to have Coronavirus / COVID-19? No / Unsure 06/08/2021 1:05 PM LIEUTENANT/DEPUTY documented as of this encounter Plan of Treatment Not on file documented as of this encounter Visit Diagnoses Not on filedocumented in this encounter Care Teams Accounts Clerk Relationship Specialty Start Date End Date Bryon Bell MD PCP - General Family Medicine 03/06/21 05/05/22 Vitaliy Solo MD [facility] [address] [place] [address] PCP - General Emergency Medicine 07/19/22 Nikki Pierre, SHERMAN Personal Advocate & Liaison (PAL) Family Medicine 03/06/21 03/25/22 [place] [address] [place] [address] Assigned PCP 03/11/21 01/18/22 Laureen Dye APRN WIRE FENCE ERECTOR [address] [place] [address] Assigned Heart and Vascular Provider 05/27/21 01/17/23 Franny Shrestha PA-C [address] [place] [address] Physician Networking Specialist Urology 10/01/21 Franny Shrestha PA-C [address] [place] [address] Assigned Surgical Provider 12/29/21 11/22/22 [place] [address] [place] [address] Assigned PCP 01/19/22 03/08/22 [place] [address] [place] [address] Assigned PCP 03/09/22 03/22/22 [place] [address] [place] [address] Assigned PCP 03/23/22 06/21/22 [place] [address] [place] [address] Family Medicine 08/27/22 [place] [address] [place] [address] Assigned PCP 08/31/22 10/27/23 Aimee Mascorro MD [address], [address] [place] [address] Assigned Surgical Provider 11/23/22 12/20/22 Franny Shrestha PA-C [address] [place] [address] Assigned Surgical Provider 12/21/22 05/28/24 Amanda Ibrahim MD Assigned Heart and Vascular Provider 01/18/23 01/26/24 [facility] [address] [place] [address] Assigned PCP 10/28/23 10/26/24 documented as of this encounter
--- OUTSIDE RECORDS SUMMARY | 2024-12-14 05:28 | XMS_ITS | Encounter Summary ---
Author Organization [facility] Address [address] [place] [address] Care Team Providers Care Plate Take Out Worker Name Role Phone Nikki Pierre RN Unavailable Unavailable Bryon Bell MD Primary Care Provider + [phone] Bryon Bell MD Unavailable Laureen Dye APRN CLINICAL RN MANAGER Unavailable [phone] Franny Shrestha-C Unavailable [phone] Franny Shrestha-C Unavailable [phone] Anyi Broderick MD Unavailable Bryon Bell MD Unavailable [phone] Anyi Broderick MD Unavailable Vitaliy Solo MD Primary Care Provider Bryon Bell MD Unavailable [phone] Anyi Broderick MD Unavailable Aimee Mascorro MD Unavailable [phone] Franny Shrestha-C Unavailable Amanda Ibrahim MD Un[facility] Unavailabl e Encounter Details Date Type Department Care Team (Late st Contact Info) Description 09/11/2021 MyC Medical Advice [facility] [address] [place] [address] Nikki Pierre RN Social History Tobacco [...] CDT 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 CLINICAL PROJECT MANAGER Gender Identity Male 03/03/2021 2:33 PM CDT Sexual Orientation Straight 03/03/2021 2: 33 PM CDT COVID-19 Exposure Response Date Recorded In the last month, have you been in contact with someone who was confirmed or suspected to have Coronavirus / COVID-19? No / Unsure 09/13/2021 3:04 PM CLINICAL PROJECT MANAGER documented as of this encounter Plan of Treatment Not on file documented as of this encounter Visit Diagnoses Not on filedocumented in this encounter Care Teams Plate Take Out Worker Relationship Specialty Start Date End Date Bryon Bell MD PCP - General Family Medicine 03/06/21 05/05/22 Vitaliy Solo MD [facility] [address] [place] [address] PCP - General Emergency Medicine 07/19/22 Nikki Pierre RN Personal Advocate & Liaison (PAL) Family Medicine 03/06/21 03/25/22 [place] [address] [place] [address] Assigned PCP 03/11/21 01/18/22 Laureen Dye APRN CLINICAL RN MANAGER [address] [place] [address] Assigned Heart and Vascular Provider 05/27/21 01/17/23 Franny Shrestha PA-C [address] [place] [address] Physician Developer Designer Urology 10/01/21 Franny Shrestha PA-C [address] [place] [address] Assigned Surgical Provider 12/29/21 11/22/22 [place] [address] [place] [address] Assigned PCP 01/19/22 03/08/22 [place] [address] [place] [address] Assigned PCP 03/09/22 03/22/22 [place] [address] [place] [address] Assigned PCP 03/23/22 06/21/22 [place] [address] [place] [address] Family Medicine 08/27/22 [place] [address] [place] [address] Assigned PCP 08/31/22 10/27/23 Aimee Mascorro MD [address], [address] [place] [address] Assigned Surgical Provider 11/23/22 12/20/22 Franny Shrestha PA-C [address] [place] [address] Assigned Surgical Provider 12/21/22 05/28/24 Amanda Ibrahim MD Assigned Heart and Vascular Provider 01/18/23 01/26/24 [facility] [address] [place] [address] Assigned PCP 10/28/23 10/26/24 documented as of this encounter
--- OUTSIDE RECORDS SUMMARY | 2024-12-14 05:28 | XMS_ITS | Encounter Summary ---
Author Organization [facility] Address [address] [place] [address] Care Team Providers Care Environmental Educator Name Role Phone Laureen Dye ENTERPRISE INTEGRATION ARCHITECT INDUSTRIAL TWISTING MACHINE OPERATOR Unavailable [phone] Franny Shrestha PA-C Unavailable [phone] Franny Shrestha PA-C Unavailable [phone] Vitaliy Solo MD Primary Care Provider Bryon Bell MD Unavailable [phone] Anyi Broderick MD Unavailable Amiee Mascorro MD Unavailable [phone] Franny Shrestha PA-C Unavailable [phone] Amanda Ibrahim MD Unavailable Unavailabl e [facility] Unavailabl e Encounter Details Date Type Department Care Team (Late st Contact Info) Description 09/15/2022 [facility] Medical Advice [facility] [place] [address] [place] [address] Amanda Ibrahim MD Social History [...] PM CDT 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 DEVELOPER EVANGELIST Gender Identity Male 03/03/2021 2:33 PM CDT Sexual Orientation Straight 03/03/2021 2: 33 PM CDT COVID-19 Exposure Response Date Recorded In the last 10 days, have yo u been in contact with someone who was confirmed or suspected to have Coronavirus/COVID-19? Unable to assess 08/27/2022 1:55 PM DEVELOPER EVANGELIST documented as of this encounter Plan of Treatment Not on file documented as of this encounter Visit Diagnoses Not on filedocumented in this encounter Care Teams Environmental Educator Relationship Specialty Start Date End Date Vitaliy Solo MD [facility] [address] [place] [address] PCP - General Emergency Medicine 07/19/22 Laureen Dye, ENTERPRISE INTEGRATION ARCHITECT INDUSTRIAL TWISTING MACHINE OPERATOR [address] [place] [address] Assigned Heart and Vascular Provider 05/27/21 01/17/23 Franny Shrestha PA-C [address] [place] [address] Physician Automatic Grinding Machine Operator Urology 10/01/21 Franny Shrestha PA-C [address] [place] [address] Assigned Surgical Provider 12/29/21 11/22/22 [place] [address] [address] [place], [place] [address] Family Medicine 08/27/22 [place] [address] [place] [address] Assigned PCP 08/31/22 10/27/23 Aimee Mascorro MD [address] [place] [address] Assigned Surgical Provider 11/23/22 12/20/22 Franny Shrestha PA-C [address] [place] [address] Assigned Surgical Provider 12/21/22 05/28/24 Amanda Ibrahim MD Assigned Heart and Vascular Provider 01/18/23 01/26/24 [facility] [address] [place] [address] Assigned PCP 10/28/23 10/26/24 documented as of this encounter
--- OUTSIDE RECORDS SUMMARY | 2024-12-14 05:28 | XMS_ITS | Encounter Summary ---
Author Organization [place] Address [address] [place] [address] Care Team Providers Care Fishing Vessel Operator Name Role Phone Page, Nikki Vega RN Unavailable Unavailable Bryon Bell MD Primary Care Provider + [phone] Bryon Bell MD Unavailable [phone] Amanda Ibrahim MD Unavailable UnavailSamaritan [facility] HospitalLaureen APRN [facility] Unavailable [phone] Franny ShresthaC Unavailable [phone] Franny Shrestha-Gayatri Unavailable [phone] Anyi Broderick MD Unavailable Bryon Bell MD Unavailable [phone] Anyi Broderick MD Unavailable Vitaliy Solo MD Primary Care Provider Bryon Bell MD Unavailable [phone] Anyi Broderick MD Unavailable Aimee Mascorro MD Unavailable [phone] Franny ShresthaC Unavailable [phone] Amanda Ibrahim MD Un[facility] e Encounter Details Date Type Department Care Team (Late st Contact Info) Description 04/19/2021 [place] Medical Advice [facility] [address] [place] [address] Amanda Ibrahim MD Social History Tobacco Use [...] PM CDT 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 ATLASSIAN ADMINISTRATOR Gender Identity Male 03/03/2021 2:33 PM [...] on filedocumented in this encounter Care Teams Fishing Vessel Operator Relationship Specialty Start Date End Date Bryon Bell MD PCP - General Family Medicine 03/06/21 05/05/[address] [facility] [address] [place] [address] PCP - General Emergency Medicine 07/19/22 Nikki Pierre RN Personal Advocate & Liaison (PAL) Family Medicine 03/06/21 03/25/22 [place] [address] [place] [address] Assigned PCP 03/11/21 01/18/22 Amanda Ibrahim MD Assigned Heart and Vascular Provider 04/22/21 05/26/21 Laureen Dye APRN PETROLEUM INSPECTOR SUPERVISOR [address] [place] [address] Assigned Heart and Vascular Provider 05/27/21 01/17/23 Franny Shrestha PA-C [address] [place] [address] Physician Vp Of Global Marketing Urology 10/01/21 Franny Shrestha PA-C [address] [place] [address] Assigned Surgical Provider 12/29/21 11/22/22 [place] [address] [place] [address] Assigned PCP 01/19/22 03/08/22 [place] [address] [place] [address] Assigned PCP 03/09/22 03/22/22 [place] [address] [place] [address] Assigned PCP 03/23/22 06/21/22 [place] [address] [place] [address] Family Medicine 08/27/22 [place] [address] [place] [address] Assigned PCP 08/31/22 10/27/23 Aimee Mascorro MD [address], [address] [place] [address] Assigned Surgical Provider 11/23/22 12/20/22 Franny Shrestha PA-C [address] [place] [address] Assigned Surgical Provider 12/21/22 05/28/24 Amanda Ibrahim MD Assigned Heart and Vascular Provider 01/18/23 01/26/24 [facility] [address] [place] [address] Assigned PCP 10/28/23 10/26/24 documented as of this encounter
--- OUTSIDE RECORDS SUMMARY | 2024-12-14 05:28 | XMS_ITS | Encounter Summary ---
Author Organization [place] Address [address] [place] [address] Care Team Providers Care Script Manager Name Role Phone Laureen Dye WEIR FISHER MATERIAL CLERK Unavailable [phone] Franny Shrestha PA-C Unavailable [phone] Franny Shrestha PA-C Unavailable [phone] Vitaliy Solo MD Primary Care Provider Bryon Bell MD Unavailable [phone] Anyi Broderick MD Unavailable Aimee Mascorro MD Unavailable [phone] Franny Shrestha PA-C Unavailable [phone] Amanda Ibrahim MD Unavailable Unavailabl e [facility] Unavailabl e Encounter Details Date Type Department Care Team (Late st Contact Info) Description 11/03/2022 [facility] [id number] [place] [address] Amanda Ibrahim MD Social History [...] PM CDT 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 BUSINESS DEVELOPMENT Gender Identity Male 03/03/2021 2:33 PM CDT [...] on filedocumented in this encounter Care Teams Script Manager Relationship Specialty Start Date End Date Vitaliy Solo MD [facility] [address] [place] [address] PCP - General Emergency Medicine 07/19/22 Laureen Dye, WEIR FISHER MATERIAL CLERK [address] [place] [address] Assigned Heart and Vascular Provider 05/27/21 01/17/23 Franny Shrestha PA-C [address] [place] [address] Physician V Belt Mold Assembler And Curer Urology 10/01/21 Franny Shrestha PA-C [address] [place] [address] Assigned Surgical Provider 12/29/21 11/22/22 [place] [address] [address] [place], [place] [address] Family Medicine 08/27/22 [place] [address] [place] [address] Assigned PCP 08/31/22 10/27/23 Aimee Mascorro MD [address] [place] [address] Assigned Surgical Provider 11/23/22 12/20/22 Franny Shrestha PA-C [address] [place] [address] Assigned Surgical Provider 12/21/22 05/28/24 Amanda Ibrahim MD Assigned Heart and Vascular Provider 01/18/23 01/26/24 [facility] [address] [place] [address] Assigned PCP 10/28/23 10/26/24 documented as of this encounter
--- OUTSIDE RECORDS SUMMARY | 2024-12-14 05:28 | XMS_ITS | Clinical Summary ---
Author Organization [place] Address [address] [place] [address] Care Team Providers Care Laborer Landscape Name Role Phone Franny Shrestha PA-C Unavailable [phone] Vitaliy Solo MD Primary Care Provider Bryon Bell MD Unavailable [phone] Allergies No known active allergies Medications * [...] (OCEAN) 0.65 % nasal sprayIndications:N srinivasa obstruction [place] 2 sprays in nostril 4 times daily [...] pain of right shoulder 03/26/2021 05/14/2021 Immunizations Immunization Administration Dates Next Due Influenza (High Dose) [...] PM CDT 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 SECURITY PROGRAM MANAGER Gender Identity Male 03/03/2021 2:33 PM CDT Sexual Orientation Straight 03/03/2021 2: 33 PM CDT Last Filed Vital Signs Vital Sign Reading Time Taken Comments Blood Pressure 160/85 11/19/2022 2:07 PM CDT Pulse 63 11/19/2022 2:07 PM CDT Temperature 36 C (96.8 F) 09/06/2021 10:26 AM SECURITY PROGRAM MANAGER Respiratory Rate 14 09/06/2021 10:26 AM SECURITY PROGRAM MANAGER Oxygen Saturation 98% 07/19/2022 2:28 PM SECURITY PROGRAM MANAGER Inhaled Oxygen Concentration - - Weight 88.9 kg (196 lb) 11/19/2022 2:07 PM CDT Height 182.9 cm (6') 11/19/2022 2:07 PM CDT Body Mass Index 26.58 11/19/2022 2:07 PM CDT Plan of Treatment Health Maintenance Due Date Last Done Comments ANNUAL REVIEW OF HM ORDERS 1944 ZOSTER VACCINE (2 of 3) 06/22/2012 04/27/2012 RSV VACCINE (1 - 1-dose 75+ series) 2019 FALL RISK ASSESSMENT 03/06/2022 03/06/2021, 02/28/2020, 08/21/2018 MEDICARE ANNUAL WELLNESS VISIT 03/06/2022 03/06/2021, 02/28/2020, 08/21/2018 BMP 08/01/2023 08/01/2022, 08/08, 05/10/2021, Additional history exists COVID-19 VACCINE ( season) 2024 02/19/2021, 01/22/2021 PHQ-2 (once per calendar year) 2024 12/24/2021, 09/06/2021, 08/29/2021, Additional history exists LIPID 02/27/2025 02/28/2020, 08/07, 08/28/2017, Additional history exists INFLUENZA VACCINE (Season Ended) 2025 05/12/2017, 05/16/2016, 06/06/2015, Additional history exists DIABETES SCREENING 08/01/2025 08/01/2022, 0 08/29/2021, 05/10/2021, Additional history exists ADVANCE CARE PLANNING 03/06/2026 03/06/2021, 020 DTAP/TDAP/TD VACCINE (3 - Td or Tdap) 07/15/2032 07/15/2022, 2014, 11/17/2001 COLONOSCOPY Discontinued 03/10/2014, 03/10/2014 COLORECTAL CANCER SCREENING Discontinued PNEUMOCOCCAL VACCINE 50+ YEARS Completed 08/21/2018, 06/06/2015, 05/02/2011 TSH W/FREE T4 REFLEX Discontinued 07/19/2022, 09/18/2021, 03/06/2021, Additional history exists CT COLONOGRAPHY Discontinued FIT Discontinued FLEX SIG Discontinued HPV VACCINE Aged Out No longer eligi ble based on patient's age to complete this topic MENINGITIS VACCINE Aged Out No longer eligible based on patient's age to complete this topic sDNA (Cologuard) Discontinued Procedures Procedure Name Priority Date/Time Associated Diagnosis Comments BASIC METABOLIC PANEL Routine 08/01/2022 11:08 AM SECURITY PROGRAM MANAGER Atrial fibrillation, unspecified type (H) TSH WITH FREE T4 REFLEX Routine 07/19/2022 1:01 PM SECURITY PROGRAM MANAGER Atrial fibrillation (H) LIPID REFLEX TO DIRECT LDL PANEL Routine 02/28/2020 11:36 AM CDT Lipid screening COLONOSCOPY - HIM SCAN 03/10/2014 12:00 AM CDT from Last 3 Months or Most Recently Relevant to Health Maintenance Results * (ABNORMAL) Basic metabolic panel (08/01/2022 11:08 AM SECURITY PROGRAM MANAGER) Sodium 140 136 - 145 mmol/L 08/01/2022 11:43 AM [facility] Potassium 4.2 3.4 - 5.3 mmol/L 08/01/2022 11:43 AM [facility] Chloride 103 98 - 107 mmol/L 08/01/2022 11:43 AM [facility] Carbon Dioxide (CO2) 31(H) 22 - 29 mmol/L 08/01/2022 11:43 AM [facility] Anion Gap 6(L) 7 - 15 mmol/L 08/01/2022 11:43 AM [facility] Urea Nitrogen 20.9 8.0 - 23.0 mg/dL 08/01/2022 11:43 AM [facility] Creatinine 0.92 0.67 - 1.17 mg/dL 08/01/2022 11:43 AM [facility] Calcium 8.9 8.8 - 10.2 mg/dL 08/01/2022 11:43 AM [facility] Glucose 187(H) 70 - 99 mg/dL 08/01/2022 11:43 AM [facility] GFR Estimate 85 >60 mL/min/1.7 3m2 08/01/2022 11:43 AM [facility] Comment:eGFR calculated usin g 2020 CKD-EPI equation. Blood STRUCTURE OF LEFT UPPER LIMB / Unknown Venipuncture / Unknown 08/01/2022 11:08 AM SECURITY PROGRAM MANAGER 08/01/2022 11:13 AM SECURITY PROGRAM MANAGER Amanda Ibrahim MD LAB - BLOOD ORDERABLES Christina l Result [facility] [address] Lab (1st floor, no room number) [place] [address], [place] [phone] * TSH with free T4 reflex (07/19/2022 1:01 PM SECURITY PROGRAM MANAGER) TSH 1.91 0.30 - 4.20 uIU/mL 07/19/2022 1:44 PM SECURITY PROGRAM MANA[facility] LABOR[facility] Blood STRUCTURE OF LEFT UPPER LIMB / Unknown Venipuncture / Unknown 07/19/2022 1:01 PM SECURITY PROGRAM MANAGER 07/19/2022 1:01 PM SECURITY PROGRAM MANAGER Amanda Ibrahim MD LAB - BLOOD ORDERABLES Christina l Result [facility] [address] Lab (1st floor, no room number) [place] [address], [place] [phone] * (ABNORMAL) Lipid panel reflex to direct LDL Fasting (02/28/2020 11:36 AM CDT) Cholesterol 188 <200 mg/dL 02/29/2020 8:55 AM CDT [facility] Triglycerides 67 <150 mg/dL 02/29/2020 8:57 AM CDT [facility] Comment:Fasting specimen HDL Cholesterol 69 >39 mg/dL 0 8:55 AM CDT [facility] LDL Cholesterol Calculated 106(H) <100 mg/dL 02/29/2020 8:57 AM CDT [facility] Comment: Above desirable: 100-129 mg/dl Borderline High: 130-159 mg/dL High: 160-189 mg/dL Very high: >189 mg/dl Non HDL Cholesterol 119 <130 mg/dL 02/29/2020 8:55 AM CDT [facility] Blood specimen (specimen) 02/28/2020 11:36 AM CDT 02/28/2020 11:37 AM CDT us Bryon Bell MD LAB - BLOOD ORDERABLES Final Result [facility] [address] [place] [address] * COLONOSCOPY - HIM SCAN (03/10/2014 12:00 AM CDT) 03/10/2014 us Provider Outside PROCEDURES Final Result from Last 3 Months or Most Recently Relevant to Health Maintenance Insurance [facility] [place] [address] MEDICARE [facility] [place] MEDIC[place] [facility] [place] [address] Care Teams Laborer Landscape Relationship Specialty Start Date End Date Vitaliy Solo MD [facility] [address] [place] [address] PCP - General Emergency Medicine 07/19/22 Franny Shrestha PA-C [address] [address] Physician Adoption Specialist Urology 10/01/21 [place] [address] [place] [address] Family Medicine 08/27/22
--- OUTSIDE RECORDS SUMMARY | 2024-12-14 05:28 | XMS_ITS | Encounter Summary ---
Author Organization [place] Address [address] [place] [address] Care Team Providers Care Wig Comber Name Role Phone Page, Nikki Vega RN Unavailable Unavailable Bryon Bell MD Primary Care Provider + [phone] Bryon Bell MD Unavailable [phone] Amanda Ibrahim MD Unavailable UnavailProvidence Seaside HospitalLaureen APRN [facility] Unavailable [phone] Franny Shrestha PA-C Unavailable [phone] Franny Shrestha-Gayatri Unavailable [phone] Anyi Broderick MD Unavailable Bryon Bell MD Unavailable [phone] Anyi Broderick MD Unavailable Vitaliy Solo MD Primary Care Provider Bryon Bell MD Unavailable [phone] Anyi Broderick MD Unavailable Aimee Mascorro MD Unavailable Franny ShresthaC Unavailable [phone] Amanda Ibrahim MD Un[facility] Reason for Visit * Reason Onset Date Comments MyChart Communication 05/03/2021 Encounter Details Date Type Department Care Team (Late st Contact Info) Description 05/03/[address] 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 Gender Identity Male 03/03/2021 2:33 PM CDT [...] on filedocumented in this encounter Care Teams Wig Comber Relationship Specialty Start Date End Date Bryon Bell MD PCP - General Family Medicine 03/06/21 05/05/22 Vitaliy Solo MD [facility] [address] [place] [address] PCP - General Emergency Medicine 07/19/22 Nikki Pierre RN Personal Advocate & Liaison (PAL) Family Medicine 03/06/21 03/25/22 [place] [address] [place] [address] Assigned PCP 03/11/21 01/18/22 Amanda Ibrahim MD Assigned Heart and Vascular Provider 04/22/21 05/26/21 Dye Laureen GUS Bergman HAND MOLDER MEAT [address] [place] [address] Assigned Heart and Vascular Provider 05/27/21 01/17/23 Franny Shrestha PA-C [address] [place] [address] Physician Residential Service Technician Urology 10/01/21 Franny Shrestha PA-C [address] [place] [address] Assigned Surgical Provider 12/29/21 11/22/22 [place] [address] [place] [address] Assigned PCP 01/19/22 03/08/22 [place] [address] [place] [address] Assigned PCP 03/09/22 03/22/22 [place] [address] [place] [address] Assigned PCP 03/23/22 06/21/22 [place] [address] [place] [address] Family Medicine 08/27/22 [place] [address] [place] [address] Assigned PCP 08/31/22 10/27/23 Aimee Mascorro MD [address] [place] [address] Assigned Surgical Provider 11/23/22 12/20/22 Franny Shrestha PA-C [address] [place] [address] Assigned Surgical Provider 12/21/22 05/28/24 Amanda Ibrahim MD Assigned Heart and Vascular Provider 01/18/23 01/26/24 [facility] [address] [place] [address] Assigned PCP 10/28/23 10/26/24 documented as of this encounter
--- OUTSIDE RECORDS SUMMARY | 2024-12-14 05:28 | XMS_ITS | Encounter Summary ---
Author Organization [place] Address [address] [place] [address] Care Team Providers Care Trimmer Meat Name Role Phone Page, Nikki Vega RN Unavailable Unavailable Bryon Bell MD Primary Care Provider + [phone] Bryon Bell MD Unavailable Laureen Dye APRN WATER PIPE INSTALLER Unavailable [phone] Franny Shrestha-C Unavailable [phone] Franny Shrestha-C Unavailable [phone] Anyi Broderick MD Unavailable Bryon Bell MD Unavailable [phone] Anyi Broderick MD Unavailable Vitaliy Solo MD Primary Care Provider Bryon Bell MD Unavailable [phone] Anyi Broderick MD Unavailable Aimee Mascorro MD Unavailable [phone] Franny Shrestha-C Unavailable Amanda Ibrahim MD Unavailable [facility] Unavailabl e Encounter Details Date Type Department Care Team (Late st Contact Info) Description 12/07/[address] 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 Gender Identity Male 03/03/2021 2:33 PM CDT Sexual Orientation Straight 03/03/2021 2: 33 PM CDT documented as of this encounter Plan of Treatment Not on file documented as of this encounter Visit Diagnoses Not on filedocumented in this encounter Care Teams Trimmer Meat Relationship Specialty Start Date End Date Bryon Bell MD PCP - General Family Medicine 03/06/21 05/05/22 Vitaliy Solo MD [facility] [address] [place] [address] PCP - General Emergency Medicine 07/19/22 Nikki Pierre RN Personal Advocate & Liaison (PAL) Family Medicine 03/06/21 03/25/22 [place] [address] [place] [address] Assigned PCP 03/11/21 01/18/22 Laureen Dye APRN WATER PIPE INSTALLER [address] [place] [address] Assigned Heart and Vascular Provider 05/27/21 01/17/23 Franny Shrestha PA-C [address] [place] [address] Physician Hardwood Sawyer Urology 10/01/21 Franny Shrestha PA-C [address] [place] [address] Assigned Surgical Provider 12/29/21 11/22/22 [place] [address] [place] [address] Assigned PCP 01/19/22 03/08/22 [place] [address] [place] [address] Assigned PCP 03/09/22 03/22/22 [place] [address] [place] [address] Assigned PCP 03/23/22 06/21/22 [place] [address] [place] [address] Family Medicine 08/27/22 [place] [address] [place] [address] Assigned PCP 08/31/22 10/27/23 Aimee Mascorro MD [address] [place] [address] Assigned Surgical Provider 11/23/22 12/20/22 Franny Shrestha PA-C [address] [address] Assigned Surgical Provider 12/21/22 05/28/24 Amanda Ibrahim MD Assigned Heart and Vascular Provider 01/18/23 01/26/24 [facility] [address] [place] [address] Assigned PCP 10/28/23 10/26/24 documented as of this encounter
--- OUTSIDE RECORDS SUMMARY | 2024-12-14 05:28 | XMS_ITS | Encounter Summary ---
Author Organization [place] Address [address] [place] [address] Care Team Providers Care Rock Star Name Role Phone Page, Nikki Vega RN Unavailable Unavailable Bryon Bell MD Primary Care Provider + [phone] Bryon Bell MD Unavailable [phone] Amanda Ibrahim MD Unavailable UnavailProvidence Willam[facility] Falls Medical CenterLaureen CHIEF PORT DIRECTOR [facility] Unavailable [phone] Franny ShresthaC Unavailable [phone] Franny Shrestha-C Unavailable [phone] Anyi Broderick MD Unavailable Bryon Bell MD Unavailable [phone] Anyi Broderick MD Unavailable Vitaliy Solo MD Primary Care Provider Bryon Bell MD Unavailable [phone] Anyi Broderick MD Unavailable Aimee Mascorro MD Unavailable [phone] Franny ShresthaC Unavailable [phone] Amanda Ibrahim MD Un[facility] Unavailabl e Encounter Details Date Type Department Care Team (Late st Contact Info) Description 05/14/2021 MyC Medical Advice [facility] Clinic [address] [place] [address] Amanda Ibrahim MD Social History Tobacco Use [...] PM CDT 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 Gender Identity Male 03/03/2021 2:33 PM CDT [...] on filedocumented in this encounter Care Teams Rock Star Relationship Specialty Start Date End Date Bryon Bell MD PCP - General Family Medicine 03/06/21 05/05/22 Vitaliy Solo MD [facility] [address] [place] [address] PCP - General Emergency Medicine 07/19/22 Nikki Pierre RN Personal Advocate & Liaison (PAL) Family Medicine 03/06/21 03/25/22 [place] [address] [facility] [place] [address] Assigned PCP 03/11/21 01/18/22 Amanda Ibrahim MD Assigned Heart and Vascular Provider 04/22/21 05/26/21 Laureen Dye APRN TRAFFIC CONTROL OFFICER [address] [place] [address] Assigned Heart and Vascular Provider 05/27/21 01/17/23 Franny Shrestha PA-C [address] [place] [address] Physician Admissions Manager Rn Urology 10/01/21 Franny Shrestha PA-C [address] [place] [address] Assigned Surgical Provider 12/29/21 11/22/22 [place] [address] [place] [address] Assigned PCP 01/19/22 03/08/22 [place] [address] [place] [address] Assigned PCP 03/09/22 03/22/22 [place] [address] [place] [address] Assigned PCP 03/23/22 06/21/22 [place] [address] [place] [address] Family Medicine 08/27/22 [place] [address] [place] [address] Assigned PCP 08/31/22 10/27/23 Aimee Mascorro MD [address] [place] [address] Assigned Surgical Provider 11/23/22 12/20/22 Franny Shrestha PA-C [address] [place] [address] Assigned Surgical Provider 12/21/22 05/28/24 Amanda Ibrahim MD Assigned Heart and Vascular Provider 01/18/23 01/26/24 [facility] [address] [place] [address] Assigned PCP 10/28/23 10/26/24 documented as of this encounter
--- OUTSIDE RECORDS SUMMARY | 2024-12-14 05:28 | XMS_ITS | Encounter Summary ---
Author Organization [place] Address [address] [place] [address] Care Team Providers Care Director Stars Name Role Phone Franny Shrestha PA-C Unavailable [phone] Vitaliy Solo MD Primary Care Provider Bryon Bell MD Unavailable [phone] Franny Shrestha PA-C Unavailable [phone] Amanda Ibrahim MD Unavailable Unavailabl e [facility] Unavailabl e Encounter Details Date Type Department Care Team (Late st Contact Info) Description 11/13/2023 MyC Medical Advice [facility] [address] [place] [address] Yajaira Cedeño, PAD CUTTER Social History Tobacco Use Types Packs/Day Years [...] PM CDT 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 Gender Identity Male 03/03/2021 2:33 PM CDT Sexual Orientation Straight 03/03/2021 2: 33 PM CDT documented as of this encounter Plan of Treatment Not on file documented as of this encounter Visit Diagnoses Not on filedocumented in this encounter Care Teams Director Stars Relationship Specialty Start Date End Date Reister, Burks Kristopher, MD [facility] [address] [place] [address] PCP - General Emergency Medicine 07/19/22 Franny Shrestha PA-C [address] [facility] [address] [place] [address] Physician Manager Environmental Services Urology 10/01/21 [place] [address] [facility] [place] [address] Family Medicine 08/27/22 Franny Shrestha PA-C [address] [facility] [address] [place] [address] Assigned Surgical Provider 12/21/22 05/28/24 Amanda Ibrahim MD Assigned Heart and Vascular Provider 01/18/23 01/26/24 [facility] [address] [place] [address] Assigned PCP 10/28/23 10/26/24 documented as of this encounter
--- OUTSIDE RECORDS SUMMARY | 2024-12-14 05:28 | XMS_ITS | Encounter Summary ---
Author Organization [place] Address [address] [place] [address] Care Team Providers Care Army Manager Name Role Phone Page, Nikki Vega RN Unavailable Unavailable Bryon Bell MD Primary Care Provider + [phone] Bryon Bell MD Unavailable [phone] Amanda Ibrahim MD Unavailable UnavailProvidence [facility]berg Medical CenterLaureen APRN [facility] Unavailable [phone] Franny Shrestha PA-C Unavailable [phone] Franny Shrestha-Gayatri Unavailable [phone] Anyi Broderick MD Unavailable Bryon Bell MD Unavailable [phone] Anyi Broderick MD Unavailable Vitaliy Solo MD Primary Care Provider Bryon Bell MD Unavailable [phone] Anyi Broderick MD Unavailable Aimee Mascorro MD Unavailable [phone] Franny ShresthaC Unavailable [phone] Amanda Ibrahim MD Un[facility] Reason for Visit * Reason Onset Date Comments Outreach 05/14/2021 PAL Encounter Details Date Type Department Care Team (Late st Contact Info) Description 05/14/2021 MyC [facility]ice [facility] [place] [address] Nikki Pierre, RN Outreach ([facility] ) Social History Tobacco Use Types [...] PM CDT 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 Gender Identity Male 03/03/2021 2:33 PM CDT [...] on filedocumented in this encounter Care Teams Army Manager Relationship Specialty Start Date End Date Bryon Bell MD PCP - General Family Medicine 03/06/21 05/05/22 Vitaliy Solo MD [facility] [address] [place] [address] PCP - General Emergency Medicine 07/19/22 Nikki Pierre RN Personal Advocate & Liaison (PAL) Family Medicine 03/06/21 03/25/22 [place] [address] [place] [address] Assigned PCP 03/11/21 01/18/22 Amanda Ibrahim MD Assigned Heart and Vascular Provider 04/22/21 05/26/21 Laureen Dye APRN DIRECTOR OF INDUSTRIAL RELATIONS [address] [place] [address] Assigned Heart and Vascular Provider 05/27/21 01/17/23 Franny Shrestha PA-C [address] [place] [address] Physician Apartment Locator Urology 10/01/21 Franny Shrestha PA-C [address] [place] [address] Assigned Surgical Provider 12/29/21 11/22/22 [place] [address] [place] [address] Assigned PCP 01/19/22 03/08/22 [place] [address] [place] [address] Assigned PCP 03/09/22 03/22/22 [place] [address] [place] [address] Assigned PCP 03/23/22 06/21/22 [place] [address] [place] [address] Family Medicine 08/27/22 [place] [address] [place] [address] Assigned PCP 08/31/22 10/27/23 Aimee Mascorro MD [address], [address] [place] [address] Assigned Surgical Provider 11/23/22 12/20/22 Franny Shrestha PA-C [address] [place] [address] Assigned Surgical Provider 12/21/22 05/28/24 Amanda Ibrahim MD Assigned Heart and Vascular Provider 01/18/23 01/26/24 [facility] [address] [place] [address] Assigned PCP 10/28/23 10/26/24 documented as of this encounter
--- OUTSIDE RECORDS SUMMARY | 2024-12-14 05:28 | XMS_ITS | Encounter Summary ---
Author Organization [place] Address [address] [place] [address] Care Team Providers Care Paper Folder Name Role Phone Page, Nikki Vega RN Unavailable Unavailable Bryon Bell MD Primary Care Provider + [phone] Bryon Bell MD Unavailable Laureen Dye APRN CARE TRANSITIONS MANAGER Unavailable [phone] Franny Shrestha-C Unavailable [phone] Franny Shrestha-C Unavailable Anyi Broderick MD Unavailable Bryon Bell MD Unavailable [phone] Anyi Broderick MD Unavailable Vitaliy Solo MD Primary Care Provider Bryon Bell MD Unavailable [phone] Anyi Broderick MD Unavailable Aimee Mascorro MD Unavailable [phone] Franny Sherstha-C Unavailable Amanda Ibrahim MD Unavailable [facility] e Reason for Visit * Reason Onset Date Comments Outreach 10/10/2021 PAL Encounter Details Date Type Department Care Team (Late st Contact Info) Description 10/10/2021 MyC Medical Advice [facility] [address] [place] [address] [place] [address] [place] [address] Outreach (PAL) Social History Tobacco Use Types Packs/Day Years Used Date Smoking Tobacco: Never Smokeless Tobacco: Never Alcohol Use Standard Drinks/Week Comments Yes 0 (1 standard drink = 0.6 oz pur e alcohol) occ PHQ-2 Answer Date Recorded PHQ-2 Score 0 09/06/2021 Sex and Gender Information Value Date Recorded Sex Assigned at Male 03/03/2021 2:33 PM CDT 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 Gender Identity Male 03/03/2021 2:33 PM CDT [...] on filedocumented in this encounter Care Teams Paper Folder Relationship Specialty Start Date End Date Bryon Bell MD PCP - General Family Medicine 03/06/21 05/05/22 Vitaliy Solo MD [facility] [address] [place] [address] PCP - General Emergency Medicine 07/19/22 Nikki Pierre, SHERMAN Personal Advocate & Liaison (PAL) Family Medicine 03/06/21 03/25/22 [place] [address] [place] [address] Assigned PCP 03/11/21 01/18/22 Laureen Dye APRN CARE TRANSITIONS MANAGER [address] [place] [address] Assigned Heart and Vascular Provider 05/27/21 01/17/23 Franny Shrestha PA-C [address] [place] [address] Physician Oral And Maxillofacial Pathologist Urology 10/01/21 Franny Shrestha PA-C [address] [place] [address] Assigned Surgical Provider 12/29/21 11/22/22 [place] [address] [place] [address] Assigned PCP 01/19/22 03/08/22 [place] [address] [place] [address] Assigned PCP 03/09/22 03/22/22 [place] [address] [place] [address] Assigned PCP 03/23/22 06/21/22 [place] [address] [place] [address] Family Medicine 08/27/22 [place] [address] [place] [address] Assigned PCP 08/31/22 10/27/23 Aimee Mascorro MD [address], [address] [place] [address] Assigned Surgical Provider 11/23/22 12/20/22 Franny Shrestha PA-C [address] [place] [address] Assigned Surgical Provider 12/21/22 05/28/24 Amanda Ibrahim MD Assigned Heart and Vascular Provider 01/18/23 01/26/24 [facility] [address] [place] [address] Assigned PCP 10/28/23 10/26/24 documented as of this encounter
--- OUTSIDE RECORDS SUMMARY | 2024-12-14 05:28 | XMS_ITS | Encounter Summary ---
Author Organization [place] Address [address] [place] [address] Care Team Providers Care Evaluation Analyst Name Role Phone Nikki Pierre RN Unavailable Unavailable Bryon Bell MD Primary Care Provider + [phone] Bryon Bell MD Unavailable Laureen Dye APRN PIPE CLEANING MACHINE OPERATOR Unavailable [phone] Franny Shrestha-C Unavailable [phone] Franny Shrestha-C Unavailable [phone] Anyi Broderick MD Unavailable Bryon Bell MD Unavailable [phone] Anyi Broderick MD Unavailable Vitaliy Solo MD Primary Care Provider Bryon Bell MD Unavailable [phone] Anyi Broderick MD Unavailable Aimee Mascorro MD Unavailable Franny Shrestha-C Unavailable Amanda Ibrahim MD Unavailable [facility] Unavailabl e Encounter Details Date Type Department Care Team (Late st Contact Info) Description 08/29/2021 MyC Medical Advice [facility] [address] [place] [address] Nikki Pierre RN Social History [...] PM CDT 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 No / Unsure 08/29/2021 9:40 AM SPECIAL EDUCATION AIDE documented as of this encounter Plan of Treatment Not on file documented as of this encounter Visit Diagnoses Not on filedocumented in this encounter Care Teams Evaluation Analyst Relationship Specialty Start Date End Date Bryon Bell MD PCP - General Family Medicine 03/06/21 05/05/22 Vitaliy Solo MD [facility] [address] [place] [address] PCP - General Emergency Medicine 07/19/22 Nikki Pierre RN Personal Advocate & Liaison (PAL) Family Medicine 03/06/21 03/25/22 [place] [address] [place] [address] Assigned PCP 03/11/21 01/18/22 Laureen Dye APRN PIPE CLEANING MACHINE OPERATOR [address] [place] [address] Assigned Heart and Vascular Provider 05/27/21 01/17/23 Franny Shrestha PA-C [address] [place] [address] Physician Nut Roaster Helper Urology 10/01/21 Franny Shrestha PA-C [address] [place] [address] Assigned Surgical Provider 12/29/21 11/22/22 [place] [address] [place] [address] Assigned PCP 01/19/22 03/08/22 [place] [address] [place] [address] Assigned PCP 03/09/22 03/22/22 [place] [address] [place] [address] Assigned PCP 03/23/22 06/21/22 [place] [address] [place] [address] Family Medicine 08/27/22 [place] [address] [place] [address] Assigned PCP 08/31/22 10/27/23 Aimee Mascorro MD [address], [address] [place] [address] Assigned Surgical Provider 11/23/22 12/20/22 Franny Shrestha PA-C [address] [place] [address] Assigned Surgical Provider 12/21/22 05/28/24 Amanda Ibrahim MD Assigned Heart and Vascular Provider 01/18/23 01/26/24 [facility] [address] [place] [address] Assigned PCP 10/28/23 10/26/24 documented as of this encounter
--- OUTSIDE RECORDS SUMMARY | 2024-12-14 05:28 | XMS_ITS | Encounter Summary ---
Author Organization [place] Address [address] [place] [address] Care Team Providers Care Adjunct Teacher Name Role Phone Laureen Dye ZIPPER SETTER LOCKSTITCH RN COMPLEX [facility]ARE Unavailable [phone] Franny Shrestha PA-C Unavailable [phone] Franny Shrestha PA-C Unavailable [phone] Vitaliy Solo MD Primary Care Provider Bryon Bell MD Unavailable [phone] Anyi Broderick MD Unavailable Aimee Mascorro MD Unavailable [phone] Franny Shrestha PA-C Unavailable Amanda Ibrahim MD Unavailable Unavailabl e [facility] Unavailabl e Encounter Details Date Type Department Care Team (Late st Contact Info) Description 08/09/2022 MyC Medical Advice [facility] [place] [id number] [place] [address] Josie Rosa, RN Social History [...] PM CDT 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 No / Unsure 08/01/2022 11:05 AM SLOT EDITOR documented as of this encounter Plan of Treatment Not on file documented as of this encounter Visit Diagnoses Not on filedocumented in this encounter Care Teams Adjunct Teacher Relationship Specialty Start Date End Date Vitaliy Solo MD [facility] [address] [place] [address] PCP - General Emergency Medicine 07/19/22 Laureen Dye, ZIPPER SETTER LOCKSTITCH RN COMPLEX CARE [address] [place] [address] Assigned Heart and Vascular Provider 05/27/21 01/17/23 Franny Shrestha PA-C [address] [place] [address] Physician Car Repairer Pullman Urology 10/01/21 Franny Shrestha PA-C [address] [place] [address] Assigned Surgical Provider 12/29/21 11/22/22 [place] [address] [place] [address] Family Medicine 08/27/22 [place] [address] [place] [address] Assigned PCP 08/31/22 10/27/23 Aimee Mascorro MD [address], [address] [place] [address] Assigned Surgical Provider 11/23/22 12/20/22 Franny Shrestha PA-C [address] [place] [address] Assigned Surgical Provider 12/21/22 05/28/24 Amanda Ibrahim MD Assigned Heart and Vascular Provider 01/18/23 01/26/24 [facility] [address] [place] [address] Assigned PCP 10/28/23 10/26/24 documented as of this encounter
--- OUTSIDE RECORDS SUMMARY | 2024-12-14 05:28 | XMS_ITS | Encounter Summary ---
Author Organization [place] Address [address] [place] [address] Care Team Providers Care Motor Expert Name Role Phone Anyi Broderick MD Unavailable Nikki Pierre RN Unavailable Unavailable Bryon Bell MD Primary Care Provider + [phone] Bryon Bell MD Unavailable [phone] Amanda Ibrahim MD Unavailable [facility] Laureen Madalyn [facility] Unavailable [phone] Franny Shrestha PA-C Unavailable [phone] Franny Shrestha PA-C Unavailable [phone] Anyi Broderick MD Unavailable Bryon Bell MD Unavailable [phone] Anyi Broderick MD Unavailable Vitaliy Solo MD Primary Care Provider Bryon Bell MD Unavailable [phone] Anyi Broderick MD Unavailable Aimee Mascorro MD Unavailable [phone] Franny Shrestha PA-C Unavailable [phone] Amanda Ibrahim MD Un[facility] Reason for Visit * Reason Onset Date Comments MyChart Communication 03/07/2021 Encounter Details Date Type Department Care Team (Latest Contact Info) Description 03/07/2021 [facility] Medical Advice 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 Gender Identity Male 03/03/2021 2:33 PM CDT [...] on filedocumented in this encounter Care Teams Motor Expert Relationship Specialty Start Date End Date Bryon Bell MD PCP - General Family Medicine 03/06/21 05/05/22 [place] [address] PCP - General Emergency Medicine 07/19/22 [place] [address] [place] [address] Assigned PCP 01/19/21 03/10/21 Nikki Pierre RN Personal Advocate & Liaison (PAL) Family Medicine 03/06/21 03/25/22 [place] [address] [place] [address] Assigned PCP 03/11/21 01/18/22 Amanda Ibrahim MD Assigned Heart and Vascular Provider 04/22/21 05/26/21 Laureen Dye, WATER CONSERVATIONIST AUTHOR'S AGENT [address] [place] [address] Assigned Heart and Vascular Provider 05/27/21 01/17/23 Franny Shrestha PA-C [address] [place] [address] Physician Director Athletic Urology 10/01/21 Franny Shrestha PA-C [address] [place] [address] Assigned Surgical Provider 12/29/21 11/22/22 [place] [address] [place] [address] Assigned PCP 01/19/22 03/08/22 [place] [address] [place] [address] Assigned PCP 03/09/22 03/22/22 [place] [address] [place] [address] Assigned PCP 03/23/22 06/21/22 [place] [address] [place] [address] Family Medicine 08/27/22 [place] [address] [place] [address] Assigned PCP 08/31/22 10/27/23 Aimee Mascorro MD [address] [place] [address] Assigned Surgical Provider 11/23/22 12/20/22 Franny Shrestha PA-C [address] [place] [address] Assigned Surgical Provider 12/21/22 05/28/24 Amanda Ibrahim MD Assigned Heart and Vascular Provider 01/18/23 01/26/24 [facility] [address] [place] [address] Assigned PCP 10/28/23 10/26/24 documented as of this encounter
--- OUTSIDE RECORDS SUMMARY | 2024-12-14 05:28 | XMS_ITS | Encounter Summary ---
Author Organization [place] Address [address] [place] [address] Care Team Providers Care Link Fabric Machine Operator Name Role Phone Franny Shrestha PA-C Unavailable Vitaliy Solo MD Primary Care Provider Bryon Bell MD Unavailable [phone] Anyi Broderick MD Unavailable Franny Shrestha PA-C Unavailable Amanda Ibrahim MD Unavailable Unavailabl e [facility] Unavailabl e Encounter Details Date Type Department Care Team (Late st Contact Info) Description 09/30/2023 MyC Medical Advice [facility] [address] [place] [address] Yajaira Cedeño, LINING FELLER Social History Tobacco Use Types Packs/Day Years [...] PM CDT 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 Gender Identity Male 03/03/2021 2:33 PM CDT Sexual Orientation Straight 03/03/2021 2: 33 PM CDT documented as of this encounter Plan of Treatment Not on file documented as of this encounter Visit Diagnoses Not on filedocumented in this encounter Care Teams Link Fabric Machine Operator Relationship Specialty Start Date End Date Vitaliy Solo MD [facility] [address] [place] [address] PCP - General Emergency Medicine 07/19/22 Franny Shrestha PA-C [address] [place] [address] Physician Fire Equipment Inspector Helper Urology 10/01/21 [place] [address] [facility] [place] [address] Family Medicine 08/27/22 [place] [address] [place] [address] Assigned PCP 08/31/22 10/27/23 Franny Shrestha PA-C [address] [place] [address] Assigned Surgical Provider 12/21/22 05/28/24 Amanda Ibrahim MD Assigned Heart and Vascular Provider 01/18/23 01/26/24 [facility] [address] [place] [address] Assigned PCP 10/28/23 10/26/24 documented as of this encounter
--- OUTSIDE RECORDS SUMMARY | 2024-12-14 05:28 | XMS_ITS | Encounter Summary ---
Author Organization [place] Address [address] [place] [address] Care Team Providers Care Casting Tester Name Role Phone Nikki Pierre RN Unavailable Unavailable Bryon Bell MD Primary Care Provider Laureen Dye APRN [facility] Unavailable [phone] Franny Shrestha PA-C Unavailable Franny Shrestha PA-C Unavailable Anyi Broderick MD Unavailable Bryon Bell MD Unavailable Anyi Broderick MD Unavailable Vitaliy Solo MD Primary Care Provider Bryon Bell MD Unavailable Anyi Broderick MD Unavailable Aimee Mascorro MD Unavailable [phone] Franny ShresthaC Unavailable Amanda Ibrahim MD Unavailable Unavailabl e [facility] Unavailabl e Encounter Details Date Type Department Care Team (Late st Contact Info) Description 02/06/2022 [place] Medical Advice [facility] [address] [place] [address] Nikki Pierre RN Social History [...] PM CDT 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 [address] [place] [address] PCP - General Emergency Medicine 07/19/22 Nikki Pierre, SHERMAN Personal Advocate & Liaison (PAL) Family Medicine 03/06/21 03/25/22 Laureen Dye APRN ROUTE PROCESS ADMINISTRATOR [address] [place] [address] Assigned Heart and Vascular Provider 05/27/21 01/17/23 Franny Shrestha PA-C [address] [place] [address] Physician Television Repair Teacher Urology 10/01/21 Franny Shrestha PA-C [address] [place] [address] Assigned Surgical Provider 12/29/21 11/22/22 [place] [address] [place] [address] Assigned PCP 01/19/22 03/08/22 [place] [address] [place] [address] Assigned PCP 03/09/22 03/22/22 [place] [address] [place] [address] Assigned PCP 03/23/22 06/21/22 [place] [address] [place] [address] Family Medicine 08/27/22 [place] [address] [place] [address] Assigned PCP 08/31/22 10/27/23 Aimee Mascorro MD [address] [place] [address] Assigned Surgical Provider 11/23/22 12/20/22 Franny Shrestha PA-C [address] [place] [address] Assigned Surgical Provider 12/21/22 05/28/24 Amanda Ibrahim MD Assigned Heart and Vascular Provider 01/18/23 01/26/24 [facility] [address] [place] [address] Assigned PCP 10/28/23 10/26/24 documented as of this encounter
--- OUTSIDE RECORDS SUMMARY | 2024-12-14 05:28 | XMS_ITS | Encounter Summary ---
Author Organization [place] Address [address] [place] [address] Care Team Providers Care Sole Tacker Name Role Phone Page, Nikki Vega RN Unavailable Unavailable Bryon Bell MD Primary Care Provider + [phone] Bryon Bell MD Unavailable [phone] Amanda Ibrahim MD Unavailable UnavailSt[facility]rasLaureen APRN [facility] Unavailable [phone] Franny ShresthaC Unavailable [phone] Franny Shrestha-Gayatri Unavailable [phone] Anyi Broderick MD Unavailable Bryon Bell MD Unavailable [phone] Anyi Broderick MD Unavailable Vitaliy Solo MD Primary Care Provider Bryon Bell MD Unavailable [phone] Anyi Broderick MD Unavailable Aimee Mascorro MD Unavailable [phone] Franny ShresthaC Unavailable [phone] Amanda Ibrahim MD Unavailable [facility] Unavail[facility] e Encounter Details Date Type Department Care Team (Late st Contact Info) Description 04/19/2021 [place] Medical Advice [facility] [address] [place] [address] Amanda Ibrahim MD Social History Tobacco Use [...] PM CDT 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 Gender Identity Male 03/03/2021 2:33 PM CDT [...] on filedocumented in this encounter Care Teams Sole Tacker Relationship Specialty Start Date End Date Bryon Bell MD PCP - General Family Medicine 03/06/21 05/05/22 Vitaliy Solo MD [facility] [address] [place] [address] PCP - General Emergency Medicine 07/19/22 Nikki Pierre RN Personal Advocate & Liaison (PAL) Family Medicine 03/06/21 03/25/22 [place] [address] [facility] [place] [address] Assigned PCP 03/11/21 01/18/22 Amanda Ibrahim MD Assigned Heart and Vascular Provider 04/22/21 05/26/21 Laureen Dye APRN HAND DRAWER IN HELPER [address] [place] [address] Assigned Heart and Vascular Provider 05/27/21 01/17/23 Franny Shrestha PA-C [address] [place] [address] Physician Senior Attorney Urology 10/01/21 Franny Shrestha PA-C [address] [place] [address] Assigned Surgical Provider 12/29/21 11/22/22 [place] [address] [place] [address] Assigned PCP 01/19/22 03/08/22 [place] [address] [place] [address] Assigned PCP 03/09/22 03/22/22 [place] [address] [place] [address] Assigned PCP 03/23/22 06/21/22 [place] [address] [place] [address] Family Medicine 08/27/22 [place] [address] [place] [address] Assigned PCP 08/31/22 10/27/23 Aimee Mascorro MD [address] [place] [address] Assigned Surgical Provider 11/23/22 12/20/22 Franny Shrestha PA-C [address] [place] [address] Assigned Surgical Provider 12/21/22 05/28/24 Amanda Ibrahim MD Assigned Heart and Vascular Provider 01/18/23 01/26/24 [facility] [address] [place] [address] Assigned PCP 10/28/23 10/26/24 documented as of this encounter
--- OUTSIDE RECORDS SUMMARY | 2024-12-14 05:28 | XMS_ITS | Clinical Summary ---
Author Organization [facility] Address [address] [place] [address] Care Team Providers Care Project Accountant Name Role Phone Vitaliy Solo MD Primary [...] 200 mg by mouth once daily. Active lisinopriL (PRINIVIL; ZESTRIL) 40 mg tabletIndications [...] with meals. 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 Gender Identity Not on file Sexual Orientation [...] 65+ 2009 RSV vaccine for adults or (1 - 1-dose 75+ series) 2019 COVID-19 vaccine series ( season) 2024 02/19/2021, 01/22/2021 Influenza Vaccine (Season Ended) 2025 Hepatitis B series for 19+ Aged Out N o longer eligible based on patient's age to complete this topic Insurance BLUE CROSS TANACROSS BLUE MR PB ONLY BLUE CROSS TANACROSS BLUE HB ONLY MEDICARE PART A HB ONLY MEDICARE PART B HB ONLY Advance Directives * Full Code (Latest Code Status on File) Date Activated Date Inactivated Comments 01/23/2013 1:38 AM 01/23/2013 4:48 PM Care Teams Project Accountant Relationship Specialty Start Date End Date Vitaliy Solo MD [address] [place], [place] [address] PCP - General Internal Medicine 11/10/23
--- OUTSIDE RECORDS SUMMARY | 2024-12-14 05:28 | XMS_ITS | Encounter Summary ---
Author Organization [place] Address [address] [place] [address] Care Team Providers Care Motor Coach Operator Name Role Phone Page, Nikki Vega RN Unavailable Unavailable Bryon Bell MD Primary Care Provider + [phone] Bryon Bell MD Unavailable [phone] Amanda Ibrahim MD Unavailable UnavailOregon [facility] HospitalLaureen APRN [facility] Unavailable [phone] Franny Shrestha PA-C Unavailable [phone] Franny Shrestha-Gayatri Unavailable [phone] Anyi Broderick MD Unavailable Bryon Bell MD Unavailable [phone] Anyi Broderick MD Unavailable Vitaliy Solo MD Primary Care Provider Bryon Bell MD Unavailable [phone] Anyi Broderick MD Unavailable Aimee Mascorro MD Unavailable [phone] Franny ShresthaC Unavailable [phone] Amanda Ibrahim MD Un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 Gender Identity Male 03/03/2021 2:33 PM [...] filedocumented in this encounter Care Teams Motor Coach Operator Relationship Specialty Start Date End Date Bryon Bell MD PCP - General Family Medicine 03/06/21 05/05/22 Vitaliy Solo MD [facility] [address] [place] [address] PCP - General Emergency Medicine 07/19/22 Nikki Pierre RN Personal Advocate & Liaison (PAL) Family Medicine 03/06/21 03/25/22 [place] [address] [place] [address] Assigned PCP 03/11/21 01/18/22 Amanda Ibrahim MD Assigned Heart and Vascular Provider 04/22/21 05/26/21 Dye Laureen GUS Bergman AQUACULTURE FARM MANAGER [address] [place] [address] Assigned Heart and Vascular Provider 05/27/21 01/17/23 Franny Shrestha PA-C [address] [place] [address] Physician Boom Tender Urology 10/01/21 Franny Shrestha PA-C [address] [place] [address] Assigned Surgical Provider 12/29/21 11/22/22 [place] [address] [place] [address] Assigned PCP 01/19/22 03/08/22 [place] [address] [place] [address] Assigned PCP 03/09/22 03/22/22 [place] [address] [place] [address] Assigned PCP 03/23/22 06/21/22 [place] [address] [place] [address] Family Medicine 08/27/22 [place] [address] [place] [address] Assigned PCP 08/31/22 10/27/23 Aimee Mascorro MD [address] [place] [address] Assigned Surgical Provider 11/23/22 12/20/22 Franny Shrestha PA-C [address] [place] [address] Assigned Surgical Provider 12/21/22 05/28/24 Amanda Ibrahim MD Assigned Heart and Vascular Provider 01/18/23 01/26/24 [facility] [address] [place] [address] Assigned PCP 10/28/23 10/26/24 documented as of this encounter
--- OUTSIDE RECORDS SUMMARY | 2024-12-14 05:28 | XMS_ITS | Encounter Summary ---
Author Organization [place] Address [address] [place] [address] Care Team Providers Care Chop Saw Operator Name Role Phone Laureen Dye ANESTHESIOLOGY TEACHER Unavailable [phone] Franny Shrestha PA-C Unavailable [phone] Franny Shrestha PA-C Unavailable [phone] Vitaliy Solo MD Primary Care Provider Bryon Bell MD Unavailable [phone] Anyi Broderick MD Unavailable Aimee Mascorro MD Unavailable [phone] Franny Shrestha PA-C Unavailable Amanda Ibrahim MD Unavailable Unavailabl e [facility] Unavailabl e Encounter Details Date Type Department Care Team (Late st Contact Info) Description 10/07/2022 MyC Medical Advice [facility] [place] [id number] [place] [address] Amanda Ibrahim MD Social History [...] CDT 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 Gender Identity Male 03/03/2021 2:33 PM CDT Sexual Orientation Straight 03/03/2021 2: 33 PM CDT documented as of this encounter Plan of Treatment Not on file documented as of this encounter Visit Diagnoses Not on filedocumented in this encounter Care Teams Chop Saw Operator Relationship Specialty Start Date End Date Vitaliy Solo MD [facility] [address] [place] [address] PCP - General Emergency Medicine 07/19/22 Laureen Dye E, ASSIGNMENT DESK EDITOR ANESTHESIOLOGY TEACHER [address] [place] [address] Assigned Heart and Vascular Provider 05/27/21 01/17/23 Franny Shrestha PA-C [address] [place] [address] Physician Molder Shoulder Pad Urology 10/01/21 Franny Shrestha PA-C [address] [place] [address] Assigned Surgical Provider 12/29/21 11/22/22 [place] [address] [place] [address] Family Medicine 08/27/22 [place] [address] [place] [address] Assigned PCP 08/31/22 10/27/23 Aimee Mascorro MD [address] [place] [address] Assigned Surgical Provider 11/23/22 12/20/22 Franny Shrestha PA-C [address] [place] [place] [address] Assigned Surgical Provider 12/21/22 05/28/24 Amanda Ibrahim MD Assigned Heart and Vascular Provider 01/18/23 01/26/24 [facility] [address] [place] [address] Assigned PCP 10/28/23 10/26/24 documented as of this encounter
--- OUTSIDE RECORDS SUMMARY | 2024-12-14 05:28 | XMS_ITS | Encounter Summary ---
Author Organization [facility] Address [address] [place] [address] Care Team Providers Care Commercial Roofer Name Role Phone Page, Nikki Vega RN Unavailable Unavailable Bryon Bell MD Primary Care Provider + [phone] Bryon Bell MD Unavailable [phone] Amanda Ibrahim MD Unavailable UnavailHarney District HospitalLaureen APRN [facility] Unavailable [phone] Franny ShresthaC Unavailable [phone] Franny Shrestha-Gayatri Unavailable [phone] Anyi Broderick MD Unavailable Bryon Bell MD Unavailable [phone] Anyi Broderick MD Unavailable Vitaliy Solo MD Primary Care Provider Bryon Bell MD Unavailable [phone] Anyi Broderick MD Unavailable Aimee Mascorro MD Unavailable [phone] Franny ShresthaC Unavailable [phone] Amanda Ibrahim MD Un[facility] Unavail[facility] e Encounter Details Date Type Department Care Team (Late st Contact Info) Description 05/03/2021 [place] Medical Advice [facility] [address] [place] [address] Amanda Ibrahim MD Social History Tobacco Use [...] PM CDT 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 [address] [place] [address] PCP - General Emergency Medicine 07/19/22 Nikki Pierre RN Personal Advocate & Liaison (PAL) Family Medicine 03/06/21 03/25/22 [place] [address] [facility] [place] [address] Assigned PCP 03/11/21 01/18/22 Amanda Ibrahim MD Assigned Heart and Vascular Provider 04/22/21 05/26/21 Laureen Dye APRN CARD TENDER [address] [place] [address] Assigned Heart and Vascular Provider 05/27/21 01/17/23 Franny Shrestha PA-C [address] [place] [address] Physician Freelance Recruiter Urology 10/01/21 Franny Shrestha PA-C [address] [place] [address] Assigned Surgical Provider 12/29/21 11/22/22 [place] [address] [place] [address] Assigned PCP 01/19/22 03/08/22 [place] [address] [place] [address] Assigned PCP 03/09/22 03/22/22 [place] [address] [place] [address] Assigned PCP 03/23/22 06/21/22 [place] [address] [place] [address] Family Medicine 08/27/22 [place] [address] [place] [address] Assigned PCP 08/31/22 10/27/23 Aimee Mascorro MD [address] [place] [address] Assigned Surgical Provider 11/23/22 12/20/22 Franny Shrestha PA-C [address] [place] [address] Assigned Surgical Provider 12/21/22 05/28/24 Amanda Ibrahim MD Assigned Heart and Vascular Provider 01/18/23 01/26/24 [facility] [address] [place] [address] Assigned PCP 10/28/23 10/26/24 documented as of this encounter
--- OUTSIDE RECORDS SUMMARY | 2024-12-14 05:28 | XMS_ITS | Encounter Summary ---
Author Organization [place] Address [address] [place] [address] Care Team Providers Care Nut Packer Name Role Phone Laureen Dye KILN FURNITURE CASTER RESEARCH MANAGER Unavailable [phone] Franny Shrestha PA-C Unavailable [phone] Franny Shrestha PA-C Unavailable [phone] Vitaliy Solo MD Primary Care Provider Bryon Bell MD Unavailable [phone] Anyi Broderick MD Unavailable Aimee Mascorro MD Unavailable [phone] Franny Shrestha PA-C Unavailable [phone] Amanda Ibrahim MD Unavailable Unavailabl e [facility] Unavailabl e Encounter Details Date Type Department Care Team (Late st Contact Info) Description 10/11/2022 MyC Medical Advice [facility] [place] [id number] [place] [address] Amanda Ibrahim MD Social History [...] PM CDT 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 Gender Identity Male 03/03/2021 2:33 PM CDT Sexual Orientation Straight 03/03/2021 2: 33 PM CDT documented as of this encounter Plan of Treatment Not on file documented as of this encounter Visit Diagnoses Not on filedocumented in this encounter Care Teams Nut Packer Relationship Specialty Start Date End Date Vitaliy Solo MD [facility] [address] [place] [address] PCP - General Emergency Medicine 07/19/22 Laureen Dye E, KILN FURNITURE CASTER RESEARCH MANAGER [address] [place] [address] Assigned Heart and Vascular Provider 05/27/21 01/17/23 Franny Shrestha PA-C [address] [place] [address] Physician Dye Weigher Helper Urology 10/01/21 Franny Shrestha PA-C [address] [place] [address] Assigned Surgical Provider 12/29/21 11/22/22 [place] [address] [place] [address] Family Medicine 08/27/22 [place] [address] [place] [address] Assigned PCP 08/31/22 10/27/23 Aimee Mascorro MD [address] [place] [address] Assigned Surgical Provider 11/23/22 12/20/22 Franny Shrestha PA-C [address] [place] [address] Assigned Surgical Provider 12/21/22 05/28/24 Amanda Ibrahim MD Assigned Heart and Vascular Provider 01/18/23 01/26/24 [facility] [address] [place] [address] Assigned PCP 10/28/23 10/26/24 documented as of this encounter
--- OUTSIDE RECORDS SUMMARY | 2024-12-14 05:28 | XMS_ITS | Encounter Summary ---
Author Organization [facility] Address [address] [place] [address] Care Team Providers Care Milk Pickup Driver Name Role Phone No Ref-Primary, Physician Primary Care Provider Bryon Bell MD Unavailable [phone] Bryon Bell MD Unavailable [phone] Anyi Broderick MD Unavailable Nikki Pierre RN Unavailable Unavailable Bryon Bell MD Primary Care Provider + [phone] Bryon Bell MD Unavailable [phone] Amanda Ibrahim MD Unavailable UnavailLaureen Doe APRN RADIOACTIVE WASTE DISPOSAL DISPATCHER Unavailable [phone] Franny Shrestha-C Unavailable [phone] Franny Shrestha-C Unavailable [phone] Anyi Broderick MD Unavailable Bryon Bell MD Unavailable [phone] Anyi Broderick MD Unavailable Vitaliy Solo MD Primary Care Provider Broyn Bell MD Unavailable [phone] Anyi Broderick MD Unavailable Aimee Mascorro MD Unavailable [phone] Franny ShresthaC Unavailable [phone] Amanda Ibrahim MD Unavailable Unavailabl joni [facility] Encounter Details Date Type Department Care Team (Late st Contact Info) Description 08/28/2018 MyC Medical Advice [facility] [address] [place] [address] [place] [address] [place] [address] Social History Tobacco Use Types Packs/Day Years Used Date Smoking Tobacco: Former Smokeless Tobacco: Never Alcohol Use Standard Drinks/Week Comments Yes 0 (1 standard drink = 0.6 oz pur e alcohol) PHQ-2 Answer Date Recorded PHQ-2 Score 0 08/21/2018 Sex and Gender Information Value Date Recorded Sex Assigned at Male 03/03/2021 2:33 PM CDT 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 Gender Identity Male 03/03/2021 2:33 PM CDT Sexual Orientation Straight 03/03/2021 2: 33 PM CDT documented as of this encounter Plan of Treatment Not on file documented as of this encounter Visit Diagnoses Not on filedocumented in this encounter Care Teams Milk Pickup Driver Relationship Specialty Start Date End Date No Ref-Primary, Physician PCP - General 08/14/18 03/05/21 [place] [address] [place] [address] PCP - Assigned PCP 07/30/18 09/08/18 Bryon Bell MD PCP - General Family Medicine 03/06/21 05/05/22 Vitaliy Solo MD [facility] [address] [place] [address] PCP - General Emergency Medicine 07/19/22 [place] [address] [place] [address] Assigned PCP 07/30/18 01/18/21 [place] [address] [place] [address] Assigned PCP 01/19/21 03/10/21 Nikki Pierre, RN Personal Advocate & Liaison (PAL) Family Medicine 03/06/21 03/25/22 [place] [address] [place] [address] Assigned PCP 03/11/21 01/18/22 Amanda Ibrahim MD Assigned Heart and Vascular Provider 04/22/21 05/26/21 Laureen Dye APRN RADIOACTIVE WASTE DISPOSAL DISPATCHER [address] [place] [address] Assigned Heart and Vascular Provider 05/27/21 01/17/23 Franny Shrestha PA-C [address] [place] [address] Physician Accounting Clerk Urology 10/01/21 Franny Shrestha PA-C [address] [place] [address] Assigned Surgical Provider 12/29/21 11/22/22 [place] [address] [place] [address] Assigned PCP 01/19/22 03/08/22 [place] [address] [place] [address] Assigned PCP 03/09/22 03/22/22 [place] [address] [place] [address] Assigned PCP 03/23/22 06/21/22 [place] [address] [place] [address] Family Medicine 08/27/22 [place] [address] [place] [address] Assigned PCP 08/31/22 10/27/23 Aimee Mascorro MD [address] [place] [address] Assigned Surgical Provider 11/23/22 12/20/22 Franny Shrestha PA-C [address] [place] [address] Assigned Surgical Provider 12/21/22 05/28/24 Amanda Ibrahim MD Assigned Heart and Vascular Provider 01/18/23 01/26/24 [facility] [address] [place] [address] Assigned PCP 10/28/23 10/26/24 documented as of this encounter
--- OUTSIDE RECORDS SUMMARY | 2024-12-14 05:28 | XMS_ITS | Encounter Summary ---
Author Organization [place] Address [address] [place] [address] Care Team Providers Care Real Estate Assistant Name Role Phone No Ref-Primary, Physician Primary Care Provider Bryon Bell MD Unavailable [phone] Bryon Bell MD Unavailable [phone] Anyi Broderick MD Unavailable Nikki Pierre RN Unavailable Unavailable Bryon Bell MD Primary Care Provider + [phone] Bryon Bell MD Unavailable [phone] Amanda Ibrahim MD Unavailable UnavailLaureen Doe APRN AUTO BATTERY BUILDER Unavailable [phone] Franny Shrestha-C Unavailable [phone] Franny Shrestha-C Unavailable [phone] Anyi Broderick MD Unavailable Bryon Bell MD Unavailable [phone] Anyi Broderick MD Unavailable Vitaliy Solo MD Primary Care Provider Bryon Bell MD Unavailable [phone] Anyi Broderick MD Unavailable Aimee Mascorro MD Unavailable [phone] Franny ShresthaC Unavailable [phone] Amanda Ibrahim MD Unavailable Unavailabl e [facility] Reason for Visit * Reason Onset Date Comments MyChart Communication 08/26/2018 Encounter Details Date Type Department Care Team (Late st Contact Info) Description 08/26/2018 MyC Medical Advice 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 Gender Identity Male 03/03/2021 2:33 PM CDT Sexual Orientation Straight 03/03/2021 2: 33 PM CDT documented as of this encounter Plan of Treatment Not on file documented as of this encounter Visit Diagnoses Not on filedocumented in this encounter Care Teams Real Estate Assistant Relationship Specialty Start Date End Date No Ref-Primary, Physician PCP - General 08/14/18 03/05/21 [place] [address] [place] [address] PCP - Assigned PCP 07/30/18 09/08/18 Bryon Bell MD PCP - General Family Medicine 03/06/21 05/05/22 Vitaliy Solo MD [facility] [address] [place] [address] PCP - General Emergency Medicine 07/19/22 [place] [address] [place] [address] Assigned PCP 07/30/18 01/18/21 [place] [address] [place] [address] Assigned PCP 01/19/21 03/10/21 Nikki Pierre RN Personal Advocate & Liaison (PAL) Family Medicine 03/06/21 03/25/22 [place] [address] [place] [address] Assigned PCP 03/11/21 01/18/22 Amanda Ibrahim MD Assigned Heart and Vascular Provider 04/22/21 05/26/21 Laureen Dye APRN AUTO BATTERY BUILDER [address] [place] [address] Assigned Heart and Vascular Provider 05/27/21 01/17/23 Franny Shrestha PA-C [address] [place] [address] Physician Laboratory Tester Urology 10/01/21 Franny Shrestha PA-C [address] [place] [address] Assigned Surgical Provider 12/29/21 11/22/22 [place] [address] [place] [address] Assigned PCP 01/19/22 03/08/22 [place] [address] [place] [address] Assigned PCP 03/09/22 03/22/22 [place] [address] [place] [address] Assigned PCP 03/23/22 06/21/22 [place] [address] [place] [address] Family Medicine 08/27/22 [place] [address] [place] [address] Assigned PCP 08/31/22 10/27/23 Aimee Mascorro MD [address] [place] [address] Assigned Surgical Provider 11/23/22 12/20/22 Franny Shrestha PA-C [address] [place] [address] Assigned Surgical Provider 12/21/22 05/28/24 Amanda Ibrahim MD Assigned Heart and Vascular Provider 01/18/23 01/26/24 [facility] [address] [place] [address] Assigned PCP 10/28/23 10/26/24 documented as of this encounter
--- OUTSIDE RECORDS SUMMARY | 2024-12-14 05:29 | XMS_ITS | Encounter Summary ---
Author Organization [place] Address [address] [place] [address]. [place] [address] Care Team Providers Care Receiving And Processing Supervisor Name Role Phone Hardik December DOOR OPERATOR Unavailable [phone] Franny Shrestha PA-C Unavailable [phone] Franny Shrestha PA-C Unavailable Anyi Brodeirck MD Unavailable Vitaliy Solo MD Primary Care Provider Bryon Bell MD Unavailable Anyi Broderick MD Unavailable Aimee Mascorro MD Unavailable [phone] Franny Shrestha PA-C Unavailable Amanda Ibrahim MD Unavailable Unavailabl e Clinic [facility] Unavailabl e Encounter Details Date Type Department Care Team (Late st Contact Info) Description 06/20/2022 [facility] Medical Advice [facility] [place] [address] [facility] [address] [place] [address] Hardik December, CURBER DOOR OPERATOR [address] [facility] [address] [place], [place] [address] Social History Tobacco Use Types Packs/Day Years Used Date Smoking Tobacco: Never Smokeless Tobacco: Never Alcohol Use Standard Drinks/Week Comments Yes 0 (1 standard drink = 0.6 oz pur e alcohol) occ PHQ-2 Answer Date Recorded PHQ-2 Score 0 12/24/2021 Sex and Gender Information Value Date Recorded Sex Assigned at Male 03/03/2021 2:33 PM CDT 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 Gender Identity Male 03/03/2021 2:33 PM CDT Sexual Orientation Straight 03/03/2021 2: 33 PM CDT documented as of this encounter Plan of Treatment Not on file documented as of this encounter Visit Diagnoses Not on filedocumented in this encounter Care Teams Receiving And Processing Supervisor Relationship Specialty Start Date End Date Vitaliy Solo MD [facility] [address] [place] [address] PCP - General Emergency Medicine 07/19/22 Laureen Dye, CURBER DOOR OPERATOR [address] [place] [address] Assigned Heart and Vascular Provider 05/27/21 01/17/23 Franny Shrestha PA-C [address] [place] [address] Physician National Stormwater Leader Urology 10/01/21 Franny Shrestha PA-C [address] [place], [place] [address] Assigned Surgical Provider 12/29/21 11/22/22 [place] [address] [place] [address] Assigned PCP 03/23/22 06/21/22 [place] [address] [place] [address] Family Medicine 08/27/22 [place] [address] [place] [address] Assigned PCP 08/31/22 10/27/23 Aimee Mascorro MD [address] [place] [address] Assigned Surgical Provider 11/23/22 12/20/22 Franny Shrestha PA-C [address] [place] [address] Assigned Surgical Provider 12/21/22 05/28/24 Amanda Ibrahim MD Assigned Heart and Vascular Provider 01/18/23 01/26/24 [facility] [address] [place] [address] Assigned PCP 10/28/23 10/26/24 documented as of this encounter
--- OUTSIDE RECORDS SUMMARY | 2024-12-14 05:29 | XMS_ITS | Encounter Summary ---
Author Organization [place] Address [address] [place] [address] Care Team Providers Care Hebrew Teacher Name Role Phone Page, Nikki Vega RN Unavailable Unavailable Bryon Bell MD Primary Care Provider + [phone] Bryon Bell MD Unavailable [phone] Amanda Ibrahim MD Unavailable [facility]ail[facility]ras[facility]N [facility] Unavailable [phone] Franny Shrestha PA-C Unavailable [phone] Franny Shrestha-Gayatri Unavailable [phone] Anyi Broderick MD Unavailable Bryon Bell MD Unavailable [phone] Anyi Broderick MD Unavailable Vitaliy Solo MD Primary Care Provider Bryon Bell MD Unavailable [phone] Anyi Broderick MD Unavailable Aimee Mascorro MD Unavailable [phone] Franny ShresthaC Unavailable [phone] Amanda Ibrahim MD Un[facility] Reason for Visit * Reason Onset Date Comments MyChart Communication 04/09/2021 Encounter Details Date Type Department Care Team (Late st Contact Info) Description 04/09/2021 MyC Medical Advice [facility] [id number] [place] [phone] [place] [address] [place] [address] MyChart Communication Social History Tobacco Use Types [...] CDT 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 Gender Identity Male 03/03/2021 2:33 PM [...] on filedocumented in this encounter Care Teams Hebrew Teacher Relationship Specialty Start Date End Date Bryon Bell MD PCP - General Family Medicine 03/06/21 05/05/22 Vitaliy Solo MD [facility] [address] [place] [address] PCP - General Emergency Medicine 07/19/22 Nikki Pierre RN Personal Advocate & Liaison (PAL) Family Medicine 03/06/21 03/25/22 [place] [address] [place] [address] Assigned PCP 03/11/21 01/18/22 Amanda Ibrahim MD Assigned Heart and Vascular Provider 04/22/21 05/26/21 Dye Laureen GUS Bergman RECRUITING TEAM LEAD [address] [place] [address] Assigned Heart and Vascular Provider 05/27/21 01/17/23 Franny Shrestha PA-C [address] [place] [address] Physician Coal Briquette Machine Operator Urology 10/01/21 Franny Shrestha PA-C [address] [place] [address] Assigned Surgical Provider 12/29/21 11/22/22 [place] [address] [place] [address] Assigned PCP 01/19/22 03/08/22 [place] [address] [place] [address] Assigned PCP 03/09/22 03/22/22 [place] [address] [place] [address] Assigned PCP 03/23/22 06/21/22 [place] [address] [place] [address] Family Medicine 08/27/22 [place] [address] [place] [address] Assigned PCP 08/31/22 10/27/23 Aimee Mascorro MD [address], [address] [place] [address] Assigned Surgical Provider 11/23/22 12/20/22 Franny Shrestha PA-C [address] [place] [address] Assigned Surgical Provider 12/21/22 05/28/24 Amanda Ibrahim MD Assigned Heart and Vascular Provider 01/18/23 01/26/24 [facility] [address] [place] [address] Assigned PCP 10/28/23 10/26/24 documented as of this encounter
--- OUTSIDE RECORDS SUMMARY | 2024-12-14 05:29 | XMS_ITS | Encounter Summary ---
Author Organization [place] Address [address] [place] [address] Care Team Providers Care Technical Planner Name Role Phone Page, Nikki Vega RN Unavailable Unavailable Bryon Bell MD Primary Care Provider + [phone] Bryon Bell MD Unavailable [phone] Amanda Ibrahim MD Unavailable [facility]ailMer[facility] CenteraL[facility] ELECTORAL OFFICER [facility] Unavailable [phone] Frnany ShresthaC Unavailable [phone] Franny Shrestha-Gayatri Unavailable [phone] Anyi Broderick MD Unavailable Bryon Bell MD Unavailable [phone] Anyi Broderick MD Unavailable Vitaliy Solo MD Primary Care Provider Bryon Bell MD Unavailable [phone] Anyi Broderick MD Unavailable Aimee Mascorro MD Unavailable [phone] Franny ShresthaC Unavailable [phone] Amanda Ibrahim MD Un[facility] e Encounter Details Date Type Department Care Team (Late st Contact Info) Description 04/18/2021 MyC Medical Advice [facility] [address] [place] [phone] [place] [address] [place] [address] Social History Tobacco Use Types Packs/Day Years [...] PM CDT 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 CITRUS FRUIT 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 Gender Identity Male 03/03/2021 2:33 PM CDT [...] on filedocumented in this encounter Care Teams Technical Planner Relationship Specialty Start Date End Date Bryon Bell MD PCP - General Family Medicine 03/06/21 05/05/22 Vitaliy Solo MD [facility] [address] [place] [address] PCP - General Emergency Medicine 07/19/22 Nikki Pierre, SHERMAN Personal Advocate & Liaison (PAL) Family Medicine 03/06/21 03/25/22 [place] [address] [place] [address] Assigned PCP 03/11/21 01/18/22 Amanda Ibrahim MD Assigned Heart and Vascular Provider 04/22/21 05/26/21 Laureen Dye APRN SOLID GLASS ROD DOWEL MACHINE OPERATOR [address] [place] [address] Assigned Heart and Vascular Provider 05/27/21 01/17/23 Franny Shrestha PA-C [address] [place] [address] Physician Photoengraving Sketch Maker Urology 10/01/21 Franny Shrestha PA-C [address] [place] [address] Assigned Surgical Provider 12/29/21 11/22/22 [place] [address] [place] [address] Assigned PCP 01/19/22 03/08/22 [place] [address] [place] [address] Assigned PCP 03/09/22 03/22/22 [place] [address] [place] [address] Assigned PCP 03/23/22 06/21/22 [place] [address] [place] [address] Family Medicine 08/27/22 [place] [address] [place] [address] Assigned PCP 08/31/22 10/27/23 Aimee Mascorro MD [address], [address] [place] [address] Assigned Surgical Provider 11/23/22 12/20/22 Franny Shrestha PA-C [address] [place] [address] Assigned Surgical Provider 12/21/22 05/28/24 Amanda Ibrahim MD Assigned Heart and Vascular Provider 01/18/23 01/26/24 [facility] [address] [place] [address] Assigned PCP 10/28/23 10/26/24 documented as of this encounter
--- OUTSIDE RECORDS SUMMARY | 2024-12-14 05:29 | XMS_ITS | Encounter Summary ---
Author Organization [place] Address [address] [place] [address] Care Team Providers Care Small Products Ii Assembler Name Role Phone Laureen Dye SAMPLE BOOK MAKER Unavailable [phone] Franny Shrestha PA-C Unavailable [phone] Franny Shrestha PA-C Unavailable [phone] Vitaliy Solo MD Primary Care Provider Bryon Bell MD Unavailable [phone] Anyi Broderick MD Unavailable Aimee Mascorro MD Unavailable [phone] Franny Shrestha PA-C Unavailable [phone] Amanda Ibrahim MD Unavailable Unavailabl e [facility] Unavailabl e Encounter Details Date Type Department Care Team (Late st Contact Info) Description 08/01/2022 [facility] Medical Advice [facility] [place] [id number] [place] [address] Amanda Ibrahim MD Social History [...] PM CDT 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 CREATIVE RESOURCE MANAGER Gender Identity Male 03/03/2021 2:33 PM CDT Sexual Orientation Straight 03/03/2021 2: 33 PM CDT COVID-19 Exposure Response Date Recorded In the last 10 days, have yo u been in contact with someone who was confirmed or suspected to have Coronavirus/COVID-19? No / Unsure 08/01/2022 11:05 AM CREATIVE RESOURCE MANAGER documented as of this encounter Plan of Treatment Not on file documented as of this encounter Visit Diagnoses Not on filedocumented in this encounter Care Teams Small Products Ii Assembler Relationship Specialty Start Date End Date Vitaliy Solo MD [facility] [address] [place] [address] PCP - General Emergency Medicine 07/19/22 Laureen Dye, GUS SAMPLE BOOK MAKER [address] [place] [address] Assigned Heart and Vascular Provider 05/27/21 01/17/23 Franny Shrestha PA-C [address] [place] [address] Physician Senior Courtroom Clerk Urology 10/01/21 Franny Shrestha PA-C [address] [place] [address] Assigned Surgical Provider 12/29/21 11/22/22 [place] [address] [address] [place], [place] [address] Family Medicine 08/27/22 [place] [address] [place] [address] Assigned PCP 08/31/22 10/27/23 Aimee Mascorro MD [address], [address] [place] [address] Assigned Surgical Provider 11/23/22 12/20/22 Franny Shrestha PA-C [address] [place] [address] Assigned Surgical Provider 12/21/22 05/28/24 Amanda Ibrahim MD Assigned Heart and Vascular Provider 01/18/23 01/26/24 [facility] [address] [place] [address] Assigned PCP 10/28/23 10/26/24 documented as of this encounter
--- OUTSIDE RECORDS SUMMARY | 2024-12-14 05:29 | XMS_ITS | Encounter Summary ---
Author Organization [place] Address [address] [place] [address]. [place] [address] Care Team Providers Care Bulker Name Role Phone Laureen Dye APRN INPATIENT SERVICES DIRECTOR Unavailable [phone] Franny Shrestha PA-C Unavailable Franny Shrestha PA-C Unavailable [phone] Anyi Broderick MD Unavailable Vitaliy Solo MD Primary Care Provider Bryon Bell MD Unavailable [phone] Anyi Broderick MD Unavailable Aimee Mascorro MD Unavailable [phone] Franny Shrestha PA-C Unavailable Amanda Ibrahim MD Unavailable Unavailabl e [facility] Unavailabl e Encounter Details Date Type Department Care Team (Late st Contact Info) Description 06/07/2022 MyC Medical Advice [facility] [address] [place] [address] Franny Shrestha PA-C [address] [facility] [address] [place] [address] Social History Tobacco Use Types Packs/Day Years Used Date Smoking Tobacco: Never Smokeless Tobacco: Never Alcohol Use Standard Drinks/Week Comments Yes 0 (1 standard drink = 0.6 oz pur e alcohol) occ PHQ-2 Answer Date Recorded PHQ-2 Score 0 12/24/2021 Sex and Gender Information Value Date Recorded Sex Assigned at Male 03/03/2021 2:33 PM CDT 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 UTILIZATION REVIEW RN Gender Identity Male 03/03/2021 2:33 PM CDT Sexual Orientation Straight 03/03/2021 2: 33 PM CDT documented as of this encounter Plan of Treatment Not on file documented as of this encounter Visit Diagnoses Not on filedocumented in this encounter Care Teams Bulker Relationship Specialty Start Date End Date Vitaliy Solo MD [facility] [address] [place] [address] PCP - General Emergency Medicine 07/19/22 Laureen Dye, AUTO WHEEL ALIGNMENT SPECIALIST INPATIENT SERVICES DIRECTOR [address] [place] [address] Assigned Heart and Vascular Provider 05/27/21 01/17/23 Franny Shrestha PA-C [address] [place] [address] Physician Sheeter Waxer Operator Urology 10/01/21 Franny Shrestha PA-C [address] [facility] [address] [place] [address] Assigned Surgical Provider 12/29/21 11/22/22 [place] [address] [place] [address] Assigned PCP 03/23/22 06/21/22 [place] [address] [place] [address] Family Medicine 08/27/22 [place] [address] [place] [address] Assigned PCP 08/31/22 10/27/23 Aimee Mascorro MD [address] [place] [address] Assigned Surgical Provider 11/23/22 12/20/22 Franny Shrestha PA-C [address] [place] [address] Assigned Surgical Provider 12/21/22 05/28/24 Amanda Ibrahim MD Assigned Heart and Vascular Provider 01/18/23 01/26/24 [facility] [address] [place] [address] Assigned PCP 10/28/23 10/26/24 documented as of this encounter
[2024-12-14 05:30] VITALS: BP 163/101; PULSE 71; RESP 16; TEMP 37; O2SAT 98; BMI 24.4
--- NOTE | 2024-12-14 05:55 | ED.EYEPROB ---
HPI - Eye Problem General Date Seen: 12/14/24 Chief complaint: Eye Problems Stated complaint: left eye possible pink eye, cold Time Seen by Provider: 12/14/24 05:54 Source: patient Mode of arrival: ambulatory Limitations: no limitations History of Present Illness HPI Narrative: Patient is an 79-year-old male presenting to the emergency department for concerns of left eye drainage. He states he is having some viral symptoms for the past few days and noticed some purulent drainage coming from the left eye starting a couple days ago. Has noticed it has been getting worse and his eye will get stuck shut each morning. Hello yellowish drainage coming from the left eye. Has no pain with eye movement. Has minimal pain at baseline he states. Has not noticed any vision changes. Denies fevers, chills, headache, weakness, numbness. No other concerns noted. Does not were contacts. Related Data Home Medications ?Medication ?Instructions ?Recorded ?Confirmed CALCIUM+D CHEW 2 tab PO DAILY 06/15/23 08/02/24 Chewable Vitamin C 3 tab PO DAILY 06/15/23 08/02/24 carvedilol 6.25 mg tablet 6.25 mg PO BID 07/15/24 08/02/24 Previous Rx's ?Medication ?Instructions ?Recorded apixaban 5 mg tablet (Eliquis) 5 mg PO BID #60 tabs 08/25/23 hydrochlorothiazide 12.5 mg tablet 12.5 mg PO QAM #90 tabs 05/25/24 amiodarone 200 mg tablet 200 mg PO QDAY #90 tabs 09/19/24 lisinopril 40 mg tablet 40 mg PO DAILY #90 tabs 12/08/24 Allergies Allergy/AdvReac Type Severity Reaction Status Date / Time No Known Drug Allergies Allergy Verified 12/14/24 05:32 Review of Systems Narrative: Pertinent systems reviewed and were negative unless stated in HPI [facility] Medical History (Updated 12/14/24 @ 06:00 by Mo Nuno DO) Weakness ?R53.1 - Weakness (ICD-10) Lyme disease ?A69.20 - Lyme disease, unspecified (ICD-10) Sciatica ?M54.30 - Sciatica, unspecified side (ICD-10) Prediabetes ?R73.03 - Prediabetes (ICD-10) Ascending aorta dilation ?I77.810 - Thoracic aortic ectasia (ICD-10) Cardiomyopathy ?I42.9 - Cardiomyopathy, unspecified (ICD-10) Prostate enlargement ?N40.0 - Benign prostatic hyperplasia without lower urinary tract symptoms (ICD-10) Adrenal abnormality (09/21/21) ?E27.9 - Disorder of adrenal gland, unspecified (ICD-10) History of nephrolithiasis ?Z87.442 - Personal history of urinary calculi (ICD-10) PAF (paroxysmal atrial fibrillation) ?I48.0 - Paroxysmal atrial fibrillation (ICD-10) Mitral regurgitation ?I34.0 - Nonrheumatic mitral (valve) insufficiency (ICD-10) Memory loss, short term ?R41.3 - Other amnesia (ICD-10) History of elevated prostate specific antigen (PSA) ?Z87.898 - Personal history of other specified conditions (ICD-10) Hypertension ?I10 - Essential (primary) hypertension (ICD-10) Surgical History History of cardioversion ?Z92.89 - Personal history of other medical treatment (ICD-10) History of cataract surgery (2016) ?Z98.49 - Cataract extraction status, unspecified eye (ICD-10) Family History Father Coronary artery disease High cholesterol Mother Diabetes High cholesterol High blood pressure Social History What is your current living situation?: I presently have a place to live Problems where you live: no known problems Problems where you live details: NA In the past 12 months, utilities in danger of being shut off: no In past 12 months, lack of transportation kept you from medical appts, meetings, work, or getting things needed for daily living: no In the past 12 mos, have been you worried that your food would run out before you had money to buy more?: never true In the past 12 mos, the food you bought just didn't last and you didn't have money to buy more?: never true Smoking Status: Never smoker Second hand tobacco smoke exposure: No How often do you have a drink containing alcohol: 2-3 times a week How many standard drinks containing alcohol do you have on a typical day: 1 or 2 AUDIT-C Alcohol total score: 3 Non-prescribed substance use: denies use Caffeine: No How often does anyone, including family, friends and others, physically hurt you: never How often does anyone, including family, friends and others, insult or talk down to you: never How often does anyone, including family, friends and others, threaten you with harm: never How often does anyone, including family, friends and others, scream or curse at you: never service: Yes Exam Narrative: Exam Narrative: Const: Well-nourished, Well-developed, in no distress Eyes: PERRL, conjunctival injection noted to left eye with some purulent drainage from the eye. HENT: Atraumatic external nose and ears. Moist mucous membranes. MSK:Extremities w/o deformity, Normal Active ROM Skin: Warm, Dry. No rashes or lesions. Neuro: Normal Muscle tone, No focal neurological deficits. Psych: Awake, Alert, & Oriented x3. Appropriate mood and affect. Const: Vital Signs, click to edit/add: Vital Signs - 24 hr 12/14/24 05:30 Temperature 98.6 F Pulse Rate [Pulse Oximeter] 71 Respiratory Rate 16 Blood Pressure [Ri ght Upper Arm] 163/101 H Pulse Oximetry 98 Oxygen Delivery Me thod Room Air Course Vital Signs Vital signs: Initial Vital Signs Temperature 98.6 F 12/14/24 05:30 Temperature Source Temporal Artery Scan 12/14/24 05:30 Pulse Rate 71 12/14/24 05:30 Respiratory Rate 16 12/14/24 05:30 Blood Pressure 163/101 H 12/14/24 05:30 Blood Pressure Mean 121 H 12/14/24 05:30 Blood Pressure Position Sitting 12/14/24 05:30 Pulse Oximetry 98 12/14/24 05:30 Oxygen Delivery Method Room Air 12/14/24 05:30 Vital Signs Temperature 98.6 F 12/14/24 05:30 Pulse Rate 71 12/14/24 05:30 Respiratory Rate 16 12/14/24 05:30 Blood Pressure 163/101 H 12/14/24 05:30 Pulse Oximetry 98 12/14/24 05:30 Oxygen Delivery Method Room Air 12/14/24 05:30 Temperature 98.6 F 12/14/24 05:30 Pulse Rate 71 12/14/24 05:30 Respiratory Rate 16 12/14/24 05:30 Blood Pressure 163/101 H 12/14/24 05:30 Pulse Oximetry 98 12/14/24 05:30 Oxygen Delivery Method Room Air 12/14/24 05:30 MDM - Eye Problem MDM Narrative Medical decision making narrative: Patient is an 79-year-old male presenting to the emergency department for conjunctivitis. He appears to have bacterial conjunctivitis. There is some purulent drainage. No periorbital cellulitis or orbital cellulitis noted at this time. No signs of keratitis or iritis as he is having no vision changes and no pain. No signs of other more concerning eye issues. He will be discharged with erythromycin ointment. Does not wear contacts so do not need to cover for Pseudomonas. Minimal concern for gonococcal or chlamydial infection. He is agreeable to this plan Discharge Plan Discharge Clinical Impression: Bacterial conjunctivitis Patient Disposition: Home, Self-Care Condition: Stable Instructions: Conjunctivitis (ED) Additional Instructions: Use the erythromycin ointment every 6 hours for the next 7 days in your left eye. The conjunctivitis is contagious to do not touch your I then touch anyone else. Make sure to wash your hands thoroughly. Return to emergency department or follow-up with your primary care provider for new or worsening symptoms. Prescriptions: No Action hydrochlorothiazide 12.5 mg tablet 12.5 mg PO QAM Qty: 90 0RF carvedilol 6.25 mg tablet 6.25 mg PO BID Rx Instructions: must administer with a meal/food Chewable Vitamin C 3 tab PO DAILY Rx Instructions: 3 CHEWABLE VIT C TABLETS DAILY, DOSE UNKNOW CALCIUM+D CHEW 2 tab PO DAILY Rx Instructions: CALCIUM + D - 2 CHEW TABS DAILY, DOSE UNKNOWN Eliquis 5 mg tablet 5 mg PO BID Qty: 60 2RF amiodarone 200 mg tablet 200 mg PO QDAY Qty: 90 3RF lisinopril 40 mg tablet 40 mg PO DAILY Qty: 90 0RF Follow Up/Referrals: Vitaliy Solo MD [Primary Care Provider, Internal Medicine] Stand Alone Forms: ClearView™ Audio Info Instructions
--- OUTSIDE RECORDS SUMMARY | 2024-12-14 06:08 | XMS_ITS | Clinical Summary ---
Author Organization [facility] Address [address] [facility] [address] [facility] , [address] [place] [address] Phone Care Team Providers Care Water And Fire Technician Name Role Phone 1CareTeamNurse-MA, 1CareTeamNurse-MA Unavailable Unavailable Conditions or Problems Problem Name Problem Code Onset Date Status Entry Date Provider Comment Standard Description Annotate Leg muscle atrophy of quadriceps 92537879 (SNOMED CT) Active Gonzalez Wolf MD Muscle atrophy Lumbar radiculopath y, right 572106370 (SNOMED CT) Active Gonzalez Wolf MD Lumbar radiculopathy Weakness of right leg 391024082 (SNOMED CT) Active Gonzalez Wolf MD Monoparesis of lower limb Vertigo 796339563 (SNOMED CT) Active Gonzalez Wolf MD Vertigo Meningioma, brain 698920839 (SNOMED CT) Active Gonzalez Wolf MD Intracranial meningioma Medications Medication Instructions Start Date Stop Date Generic Name [facility] Provider VITAMIN A/VITAMIN D3 (NATURAL VITAMIN D ORAL) Take by mouth. NATURAL VITAMIN D ORAL QIEUSER QIEUSER SPIRONOLACTONE 25 MG TABS Take 1 Tablet (25 mg) by mouth once daily. spironolactone [id number] QIEUSER QIEUSER METOPROLOL SUCCINATE ER 50 MG RT30N-CQD Take 50 mg by mouth once daily. metoprolol succinate 51958618480 QIEUSER QIEUSER LISINOPRIL 40 MG TABS Take 40 mg by mouth once daily. lisinopril [id number] QIEUSER QIEUSER CLOTRIMAZOLE-BETA METHASONE 1-0.05 % CREA Apply small amount to affected area(s) 2 times daily clotrimazole-bet amethasone 57642830824 QIEUSER QIEUSER ELIQUIS 5 MG TABS TAKE 1 TABLET (5 MG) BY MOUTH 2 TIMES DAILY apixaban [id number] QIEUSER QIEUSER AMIODARONE HCL 200 MG TABS Take 200 mg by mouth once daily. amiodarone 95134974477 QIEUSER QIEUSER Medications Administered No information available. Allergies, Adverse Reactions, Alerts No information available. Results Date Name Value Unit Range Flag Description Office Visit: Office Visit B rain mass MRI/CT at [facility] Recor MEDS REVIEW Done Documenta [...] Procedures Code Procedure Name Date Entry Date [id number] MRI-Brain W/WO [id number] MRA-Neck W/WO [id number] MultiHance Gadoliniu m-based MR Contrast - 15 ml vial CPT-88626 MRA Neck W/WO CPT-33566 MRI Brain W/WO [id number] Documentation of current medicatio ns Vital Signs Date Name Value Unit Description Weight Measured 194 [lb_av] weight E& M Weight Measured 194 [lb_av] weight E& M Heart Rate 68 /min pulse rate Immunizations No information available. Advance Directives No information available.
[2024-12-14 06:09] VITALS: BP 158/84; PULSE 75; RESP 16; TEMP 37; O2SAT 98
[2024-12-14 06:10] VITALS: BP 158/84; PULSE 75; RESP 16; TEMP 37
== END 2024-12-14 06:11 | disposition home or self-care (01) ==
LOC: ED 06:07
PROVIDERS: Emergency Provider Student in an Organized Health Care Education/Training Program; PCP Internal Medicine
DX: H10.89 Other conjunctivitis (principal)
CPT/HCPCS: 99282; 99283; A9270

== ENCOUNTER 2025-01-27 08:59 | Outpatient (CLI) | payer MEDICARE, BC, SELFPAY | END 2025-01-27 09:00 | disposition home or self-care (01) | PROVIDERS: PCP Internal Medicine; Visit Provider Internal Medicine Cardiovascular Disease | DX: I48.0 Paroxysmal atrial fibrillation (principal); I48.19 Other persistent atrial fibrillation; Z13.6 Encounter for screening for cardiovascular disorders | CPT/HCPCS: 80048; 80061; 84443; 84450 ==

== ENCOUNTER 2025-04-18 13:35 | Emergency (ER) | payer MEDICARE, BC, SELFPAY ==
--- OUTSIDE RECORDS SUMMARY | 2025-04-18 13:39 | XMS_ITS | Encounter Summary ---
Author Organization [place] Address [address] [place] [address] Care Team Providers Care Pbx Supervisor Name Role Phone No Ref-Primary, Physician Primary Care Provider Bryon Bell MD Unavailable [phone] Bryon Bell MD Unavailable [phone] Anyi Broderick MD Unavailable Nikki Pierre RN Unavailable Unavailable Bryon Bell MD Primary Care Provider + [phone] Bryon Bell MD Unavailable [phone] Amanda Ibrahim MD Unavailable UnavailLaureen Doe APRN INFECTIOUS DISEASE TECHNICIAN Unavailable [phone] Franny Shrestha PA-C Unavailable [phone] Franny Shrestha PA-C Unavailable [phone] Anyi Broderick MD Unavailable Bryon Bell MD Unavailable Anyi Broderick MD Unavailable Vitaliy Solo MD Primary Care Provider Bryon Bell MD Unavailable [phone] Anyi Broderick MD Unavailable Aimee Mascorro MD Unavailable [phone] Franny Shrestha PA-C Unavailable [phone] Amanda Ibrahim MD Unavailable Unavailabl e [facility] Unavailabl e Reason for Visit * Reason Onset Date Comments MyChart Communication 08/26/2018 Encounter Details Date Type Department Care Team (Late st Contact Info) Description 08/26/2018 MyC Medical Advice [facility] [address] [place] [address] [place] [address] [place] [address] MyChart Communication Social History Tobacco Use Types Packs/Day Years Used Date Smoking Tobacco: Former Smokeless Tobacco: Never Alcohol Use Standard Drinks/Week Comments Yes 0 (1 standard drink = 0.6 oz pur e alcohol) PHQ-2 Answer Date Recorded PHQ-2 Score 0 08/21/2018 Sex and Gender Information Value Date Recorded Sex Assigned at Male 03/03/2021 2:33 PM CDT 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 VAULT 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 Gender Identity Male 03/03/2021 2:33 PM CDT Sexual Orientation Straight 03/03/2021 2: 33 PM CDT documented as of this encounter Plan of Treatment Not on file documented as of this encounter Visit Diagnoses Not on filedocumented in this encounter Care Teams Pbx Supervisor Relationship Specialty Start Date End Date No Ref-Primary, Physician PCP - General 08/14/18 03/05/21 [place] [address] [place] [address] PCP - Assigned PCP 07/30/18 09/08/18 Bryon Bell MD PCP - General Family Medicine 03/06/21 05/05/22 Vitaliy Solo MD [facility] [address] [place] [address] PCP - General Emergency Medicine 07/19/22 [place] [address] [place] [address] Assigned PCP 07/30/18 01/18/21 [place] [address] [place] [address] Assigned PCP 01/19/21 03/10/21 Nikki Pierre RN Personal Advocate & Liaison (PAL) Family Medicine 03/06/21 03/25/22 [place] [address] [place] [address] Assigned PCP 03/11/21 01/18/22 Amanda Ibrahim MD Assigned Heart and Vascular Provider 04/22/21 05/26/21 Laureen Dye, GUS INFECTIOUS DISEASE TECHNICIAN [address] [place] [address] Assigned Heart and Vascular Provider 05/27/21 01/17/23 Franny Shrestha PA-C [address] [place] [address] Physician Business Solutions Analyst Urology 10/01/21 Franny Shrestha PA-C [address] [place] [address] Assigned Surgical Provider 12/29/21 11/22/22 [place] [address] [place] [address] Assigned PCP 01/19/22 03/08/22 [place] [address] [place] [address] Assigned PCP 03/09/22 03/22/22 [place] [address] [place] [address] Assigned PCP 03/23/22 06/21/22 [place] [address] [place] [address] Family Medicine 08/27/22 [place] [address] [place] [address] Assigned PCP 08/31/22 10/27/23 Aimee Mascorro MD [address] [place] [address] Assigned Surgical Provider 11/23/22 12/20/22 Franny Shrestha PA-C [address] [place] [address] Assigned Surgical Provider 12/21/22 05/28/24 Amanda Ibrahim MD Assigned Heart and Vascular Provider 01/18/23 01/26/24 [facility] [address] [place] [address] Assigned PCP 10/28/23 10/26/24 documented as of this encounter
--- OUTSIDE RECORDS SUMMARY | 2025-04-18 13:39 | XMS_ITS | Clinical Summary ---
Author Organization [facility] Address [address] [facility] , [address] [place] [address] Phone Care Team Providers Care Cover Creaser Name Role Phone 1CareTeamNurse-MA, 1CareTeamNurse-MA Unavailable Unavailable Conditions or Problems Problem Name Problem Code Onset Date Status Entry Date Provider Comment Standard Description Annotate Leg muscle atrophy of quadriceps 58319330 (SNOMED CT) Active Gonzalez Wolf MD Muscle atrophy Lumbar radiculopath y, right 624019090 (SNOMED CT) Active Gonzalez Wolf MD Lumbar radiculopathy Weakness of right leg 017434504 (SNOMED CT) Active Gonzalez Wolf MD Monoparesis of lower limb Vertigo 174195371 (SNOMED CT) Active Gonzalez Wolf MD Vertigo Meningioma, brain 211682276 (SNOMED CT) Active Gonzalez Wolf MD Intracranial meningioma Medications Medication Instructions Start Date Stop Date Generic Name [facility] Provider VITAMIN A/VITAMIN D3 (NATURAL VITAMIN D ORAL) Take by mouth. NATURAL VITAMIN D ORAL QIEUSER QIEUSER SPIRONOLACTONE 25 MG TABS Take 1 Tablet (25 mg) by mouth once daily. spironolactone [id number] QIEUSER QIEUSER METOPROLOL SUCCINATE ER 50 MG [id number] Take 50 mg by mouth once daily. metoprolol succinate 73506681718 QIEUSER QIEUSER LISINOPRIL 40 MG TABS Take 40 mg by mouth once daily. lisinopril [id number] QIEUSER QIEUSER CLOTRIMAZOLE-BETA METHASONE 1-0.05 % CREA Apply small amount to affected area(s) 2 times daily clotrimazole-bet amethasone 57075206906 QIEUSER QIEUSER ELIQUIS 5 MG TABS TAKE 1 TABLET (5 MG) BY MOUTH 2 TIMES DAILY apixaban 46263022052 QIEUSER QIEUSER AMIODARONE HCL 200 MG TABS Take 200 mg by mouth once daily. amiodarone [id number] QIEUSER QIEUSER Medications Administered No information available. Allergies, Adverse Reactions, Alerts No information available. Results Date Name Value Unit Range Flag Description Office Visit: Office Visit B rain mass MRI/CT at [facility] Recor MEDS REVIEW Done Documenta tion of [...] Procedures Code Procedure Name Date Entry Date [id number] MRI-Brain W/WO [id number] MRA-Neck W/WO CPT-[id number] MultiHance Gadoliniu m-based MR Contrast - 15 ml vial CPT-68769 MRA Neck W/WO CPT-33772 MRI Brain W/WO [id number] Documentation of current medicatio ns Vital Signs Date Name Value Unit Description Weight Measured 194 [lb_av] weight E& M Weight Measured 194 [lb_av] weight E& M Heart Rate 68 /min pulse rate Immunizations No information available. Advance Directives No information available.
--- OUTSIDE RECORDS SUMMARY | 2025-04-18 13:39 | XMS_ITS | Encounter Summary ---
Author Organization [place] Address [address] [place] [address] Care Team Providers Care Needle Grader Name Role Phone Page, Nikki Vega RN Unavailable Unavailable Bryon Bell MD Primary Care Provider + [phone] Bryon Bell MD Unavailable [phone] Laureen Dye APRN ROLLOFF DRIVER Unavailable [phone] Franny Shrestha PA-C Unavailable Franny Shrestha PA-C Unavailable Anyi Broderick MD Unavailable Bryon Bell MD Unavailable [phone] Anyi Broderick MD Unavailable Vitaliy Solo MD Primary Care Provider Bryon Bell MD Unavailable [phone] Anyi Broderick MD Unavailable Aimee Mascorro MD Unavailable [phone] Franny Shrestha PA-C Unavailable [phone] Amanda Ibrahim MD Unavailable [facility] Unavailabl e Encounter Details Date Type Department Care Team (Late st Contact Info) Description 09/11/2021 MyC Medical Advice [facility] [address] [place] [address] Nikki Pierre RN Social History Tobacco Use Types Packs/Day Years Used Date Smoking Tobacco: Never Smokeless Tobacco: Never Alcohol Use Standard Drinks/Week Comments Yes 0 (1 standard drink = 0.6 oz pur e alcohol) occ PHQ-2 Answer Date Recorded PHQ-2 Score 0 09/06/2021 Sex and Gender Information Value Date Recorded Sex Assigned at Male 03/03/2021 2:33 PM CDT 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 No / Unsure 09/13/2021 3:04 PM VETERINARY PARASITOLOGIST documented as of this encounter Plan of Treatment Not on file documented as of this encounter Visit Diagnoses Not on filedocumented in this encounter Care Teams Needle Grader Relationship Specialty Start Date End Date Bryon Bell MD PCP - General Family Medicine 03/06/21 05/05/22 Vitaliy Solo MD [facility] [address] [place] [address] PCP - General Emergency Medicine 07/19/22 Nikki Pierre RN Personal Advocate & Liaison (PAL) Family Medicine 03/06/21 03/25/22 [place] [address] [place] [address] Assigned PCP 03/11/21 01/18/22 Laureen Dye APRN ROLLOFF DRIVER [address] [place] [address] Assigned Heart and Vascular Provider 05/27/21 01/17/23 Franny Shrestha PA-C [address] [place] [address] Physician Knotting Machine Operator Portable Urology 10/01/21 Franny Shrestha PA-C [address] [place] [address] Assigned Surgical Provider 12/29/21 11/22/22 [place] [address] [place] [address] Assigned PCP 01/19/22 03/08/22 [place] [address] [place] [address] Assigned PCP 03/09/22 03/22/22 [place] [address] [place] [address] Assigned PCP 03/23/22 06/21/22 [place] [address] [place] [address] Family Medicine 08/27/22 [place] [address] [place] [address] Assigned PCP 08/31/22 10/27/23 Aimee Mascorro MD [address], [address] [place] [address] Assigned Surgical Provider 11/23/22 12/20/22 Franny Shrestha PA-C [address] [place] [address] Assigned Surgical Provider 12/21/22 05/28/24 Amanda Ibrahim MD Assigned Heart and Vascular Provider 01/18/23 01/26/24 [facility] [address] [place] [address] Assigned PCP 10/28/23 10/26/24 documented as of this encounter
--- OUTSIDE RECORDS SUMMARY | 2025-04-18 13:39 | XMS_ITS | Encounter Summary ---
Author Organization [facility] Address [address] [place] [address] Care Team Providers Care Cleat Maker Name Role Phone No Ref-Primary, Physician Primary Care Provider Bryon Bell MD Unavailable [phone] Bryon Bell MD Unavailable [phone] Anyi Broderick MD Unavailable Nikki Pierre RN Unavailable Unavailable Bryon Bell MD Primary Care Provider + [phone] Bryon Bell MD Unavailable [phone] Amanda Ibrahim MD Unavailable UnavailLaureen Doe APRN WORKERS COMPENSATION CLAIMS ASSISTANT Unavailable [phone] Franny Shrestha PA-C Unavailable [phone] Franny Shrestha PA-C Unavailable Anyi Broderick MD Unavailable Bryon Bell MD Unavailable Anyi Broderick MD Unavailable Vitaliy Solo MD Primary Care Provider Bryon Bell MD Unavailable [phone] Anyi Broderick MD Unavailable Aimee Mascorro MD Unavailable [phone] Franny Shrestha PA-C Unavailable Amanda Ibrahim MD Unavailable Unavailabl e [facility] e Encounter Details Date Type Department Care Team (Late st Contact Info) Description 08/21/[address] [facility] [address] [place] [id number] [place] [address] [place] [address] Social History Tobacco Use Types Packs/Day Years Used Date Smoking Tobacco: Former Smokeless Tobacco: Never Alcohol Use Standard Drinks/Week Comments Yes 0 (1 standard drink = 0.6 oz pur e alcohol) PHQ-2 Answer Date Recorded PHQ-2 Score 0 08/21/2018 Sex and Gender Information Value Date Recorded Sex Assigned at Male 03/03/2021 2:33 PM CDT 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 IDENTITY MANAGEMENT CONSULTANT Gender Identity Male 03/03/2021 2:33 PM CDT Sexual Orientation Straight 03/03/2021 2: 33 PM CDT documented as of this encounter Plan of Treatment Not on file documented as of this encounter Visit Diagnoses Not on filedocumented in this encounter Care Teams Cleat Maker Relationship Specialty Start Date End Date No Ref-Primary, Physician PCP - General 08/14/18 03/05/21 [place] [address] [place] [address] PCP - Assigned PCP 07/30/18 09/08/18 Bryon Bell MD PCP - General Family Medicine 03/06/21 05/05/22 Vitaliy Solo MD [facility] [address] [place] [address] PCP - General Emergency Medicine 07/19/22 [place] [address] [place] [address] Assigned PCP 07/30/18 01/18/21 [place] [address] [place] [address] Assigned PCP 01/19/21 03/10/21 Nikki Pierre RN Personal Advocate & Liaison (PAL) Family Medicine 03/06/21 03/25/22 [place] [address] [place] [address] Assigned PCP 03/11/21 01/18/22 Amanda Ibrahim MD Assigned Heart and Vascular Provider 04/22/21 05/26/21 Laureen Dye APRN WORKERS COMPENSATION CLAIMS ASSISTANT [address] [place] [address] Assigned Heart and Vascular Provider 05/27/21 01/17/23 Franny Shrestha PA-C [address] [place] [address] Physician Banjo Repair Person Urology 10/01/21 Franny Shrestha PA-C [address] [place] [address] Assigned Surgical Provider 12/29/21 11/22/22 [place] [address] [place] [address] Assigned PCP 01/19/22 03/08/22 [place] [address] [place] [address] Assigned PCP 03/09/22 03/22/22 [place] [address] [place] [address] Assigned PCP 03/23/22 06/21/22 [place] [address] [place] [address] Family Medicine 08/27/22 [place] [address] [place] [address] Assigned PCP 08/31/22 10/27/23 Aimee Mascorro MD [address], [address] [place] [address] Assigned Surgical Provider 11/23/22 12/20/22 Franny Shrestha PA-C [address] [place] [address] Assigned Surgical Provider 12/21/22 05/28/24 Amanda Ibrahim MD Assigned Heart and Vascular Provider 01/18/23 01/26/24 [facility] [address] [place] [address] Assigned PCP 10/28/23 10/26/24 documented as of this encounter
--- OUTSIDE RECORDS SUMMARY | 2025-04-18 13:39 | XMS_ITS | Encounter Summary ---
Author Organization [facility] Address [address] [place] [address] Care Team Providers Care Hot Die Press Operator Name Role Phone No Ref-Primary, Physician Primary Care Provider Bryon Bell MD Unavailable [phone] Bryon Bell MD Unavailable [phone] Anyi Broderick MD Unavailable Nikki Pierre RN Unavailable Unavailable rByon Bell MD Primary Care Provider + [phone] Bryon Bell MD Unavailable [phone] Amanda Ibrahim MD Unavailable UnavailLaureen Doe APRN RAILROAD INSPECTOR Unavailable [phone] Franny Shrestha PA-C Unavailable [phone] Franny Shrestha PA-C Unavailable Anyi Broderick MD Unavailable Bryon Bell MD Unavailable [phone] Anyi Broderick MD Unavailable Vitaliy Solo MD Primary Care Provider Bryon Bell MD Unavailable [phone] Anyi Broderick MD Unavailable Aimee Mascorro MD Unavailable [phone] Franny Shrestha PA-C Unavailable Amanda Ibrahim MD Unavailable Unavailabl e [facility] Encounter Details Date Type Department Care Team (Late st Contact Info) Description 08/26/2018 MyC Medical Advice [facility] [address] [place] [phone] [place] [address] [facility] [address] Social History Tobacco Use Types Packs/Day Years Used Date Smoking Tobacco: Former Smokeless Tobacco: Never Alcohol Use Standard Drinks/Week Comments Yes 0 (1 standard drink = 0.6 oz pur e alcohol) PHQ-2 Answer Date Recorded PHQ-2 Score 0 08/21/2018 Sex and Gender Information Value Date Recorded Sex Assigned at Male 03/03/2021 2:33 PM CDT 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 BUTTON INSPECTOR Gender Identity Male 03/03/2021 2:33 PM CDT Sexual Orientation Straight 03/03/2021 2: 33 PM CDT documented as of this encounter Plan of Treatment Not on file documented as of this encounter Visit Diagnoses Not on filedocumented in this encounter Care Teams Hot Die Press Operator Relationship Specialty Start Date End Date No Ref-Primary, Physician PCP - General 08/14/18 03/05/21 [place] [address] [place] [address] PCP - Assigned PCP 07/30/18 09/08/18 Bryon Bell MD PCP - General Family Medicine 03/06/21 05/05/22 Vitaliy Solo MD [facility] [address] [place] [address] PCP - General Emergency Medicine 07/19/22 [place] [address] [place] [address] Assigned PCP 07/30/18 01/18/21 [place] [address] [place] [address] Assigned PCP 01/19/21 03/10/21 Nikki Pierre RN Personal Advocate & Liaison (PAL) Family Medicine 03/06/21 03/25/22 [place] [address] [place] [address] Assigned PCP 03/11/21 01/18/22 Amanda Ibrahim MD Assigned Heart and Vascular Provider 04/22/21 05/26/21 Laureen Dye APRN RAILROAD INSPECTOR [address] [place] [address] Assigned Heart and Vascular Provider 05/27/21 01/17/23 Franny Shrestha PA-C [address] [place] [address] Physician Railroad Wheels And Axle Inspector Urology 10/01/21 Franny Shrestha PA-C [address] [place] [address] Assigned Surgical Provider 12/29/21 11/22/22 [place] [address] [place] [address] Assigned PCP 01/19/22 03/08/22 [place] [address] [place] [address] Assigned PCP 03/09/22 03/22/22 [place] [address] [place] [address] Assigned PCP 03/23/22 06/21/22 [place] [address] [place] [address] Family Medicine 08/27/22 [place] [address] [place] [address] Assigned PCP 08/31/22 10/27/23 Aimee Mascorro MD [address], [address] [place] [address] Assigned Surgical Provider 11/23/22 12/20/22 Franny Shrestha PA-C [address] [place] [address] Assigned Surgical Provider 12/21/22 05/28/24 Amanda Ibrahim MD Assigned Heart and Vascular Provider 01/18/23 01/26/24 [facility] [address] [place] [address] Assigned PCP 10/28/23 10/26/24 documented as of this encounter
--- OUTSIDE RECORDS SUMMARY | 2025-04-18 13:40 | XMS_ITS | Clinical Summary ---
Author Organization [facility] Address [address] [place] [address] Care Team Providers Care Physician Recruiter Name Role Phone Vitaliy Solo MD Primary Care Provider [phone] Allergies No known active allergies Medications VITAMIN A/VITAMIN D3 (NATURAL VITAMIN D ORAL) Take by mouth. Active clotrimazole-beta methasone cream (LOTRISONE) 1-0.05 % cream Apply small amount to affected area(s) 2 times daily 45 g 1 03/18/2013 6:10 PM CDT 3 Active lisinopriL (PRINIVIL; ZESTRIL) 40 mg tabletIndications :Hypertension Take 1 Tablet (40 mg) by mouth once daily. 90 Tablet 3 4 Active amiodarone (CORDARONE) 200 mg tabletIndications :Paroxysmal atrial fibrillation (HC) Take 0.5 Tablets (100 mg) by mouth once daily. 60 Tablet 5 5 Active apixaban (Eliquis) 5 mg tabletIndications :Persistent atrial fibrillation (HC) Take 1 Tablet (5 mg) by mouth two times daily. 180 Tablet 2 5 Active Active Problems Problem Noted Date Diagnosed Date Chest pain 01/23/2013 Encounters Date Type Department Care Team Description 03/08/2025 Telephone [facility] [address] [place] [address] Sudhakar Ashby MD Referral 01/27/2025 8:30 AM CDT Office Visit [facility] [address] [place] [address] Sylvester Wilson MD 01/27/2025 Orders Only [facility] Scanner 1 scan: (1-Ord) [facility], MULTIPLE RESULTS, 01/27/2025 01/27/2025 Telephone [facility] [address] [facility] [address] [place] [address] Sylvester Wilson MD Results (TSH) from Last 3 Months Social History Tobacco [...] on file Legal Sex Male 8:17 PM TREATMENT SPECIALIST Gender Identity Not on file Sexual Orientation [...] Upcoming Encounters Date Type Department Care Team (Late st Contact Info) Description 05/30/2025 8:20 AM TREATMENT SPECIALIST Office Visit [facility] [address] [place] [address] Sudhakar Ashby MD [address] [place] [address] Health Maintenance Due Date Last Done Comments Tetanus booster 1955 Depression screening for age 12+ 1956 BMI (ht and wt on same day) for age 18+ 1962 Pneumococcal series for age 50+ (1 of 2 - PCV) 1963 Zoster (shingles) series for age 50+ (1 of 2) 1994 Medicare Wellness for age 65+ 2009 RSV vaccine for adults or (1 - 1-dose 75+ series) 2019 COVID-19 vaccine series (3 - 2024- season) 2025 02/19/2021, 01/22/2021 Influenza Vaccine (#1) 2025 Hepatitis B series for 19+ Aged Out N o longer eligible based on patient's age to complete this topic Procedures Procedure Name Priority Date/Time Associated Diagnosis Comments SCAN-LABORATORY REPORT 01/27/2025 12:00 AM CDT from Last 3 Months Results * SCAN-LABORATORY REPORT (01/27/2025 12:00 AM CDT) us Scanner OTHER Final Result from Last 3 Months Insurance BLUE CROSS EEK BLUE MR PB ONLY BLUE CROSS EEK BLUE HB ONLY MEDICARE PART A HB ONLY MEDICARE PART B HB ONLY Advance Directives * Full Code (Latest Code Status on File) Date Activated Date Inactivated Comments 01/23/2013 1:38 AM 01/23/2013 4:48 PM Care Teams Physician Recruiter Relationship Specialty Start Date End Date Vitaliy Solo MD [address] [place] [address] PCP - General Internal Medicine 11/10/23
--- OUTSIDE RECORDS SUMMARY | 2025-04-18 13:40 | XMS_ITS | Encounter Summary ---
Author Organization [place] Address [address] [place] [address] Care Team Providers Care Electrophysiology Nurse Practitioner Name Role Phone Laureen Dye APRN FIELD ADVISOR Unavailable [phone] Franny Shrestha PA-C Unavailable [phone] Franny Shrestha PA-C Unavailable Vitaliy Solo MD Primary Care Provider Bryon Bell MD Unavailable Anyi Broderick MD Unavailable Aimee Mascorro MD Unavailable [phone] Franny Shrestha PA-C Unavailable [phone] Amanda Ibrahim MD Unavailable Unavailabl e [facility] Unavailabl e Encounter Details Date Type Department Care Team (Late st Contact Info) Description 11/03/2022 MyC Medical Advice [facility] [address] [place] [phone] Amanda Ibrahim MD Social History Tobacco Use Types Packs/Day Years Used Date Smoking Tobacco: Never Smokeless Tobacco: Never Alcohol Use Standard Drinks/Week Comments Yes 0 (1 standard drink = 0.6 oz pur e alcohol) occ PHQ-2 Answer Date Recorded PHQ-2 Score 0 12/24/2021 Sex and Gender Information Value Date Recorded Sex Assigned at Male 03/03/2021 2:33 PM CDT 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 OVERNIGHT CAREGIVER Gender Identity Male 03/03/2021 2:33 PM CDT [...] on filedocumented in this encounter Care Teams Electrophysiology Nurse Practitioner Relationship Specialty Start Date End Date Vitaliy Solo MD [facility] [address] [place] [address] PCP - General Emergency Medicine 07/19/22 Laureen Dye, FREIGHT FORWARDER FIELD ADVISOR [address] [place] [address] Assigned Heart and Vascular Provider 05/27/21 01/17/23 Franny Shrestha PA-C [address] [place] [address] Physician Cut Out Worker Urology 10/01/21 Franny Shrestha PA-C [address] [facility] [address] [place] [address] Assigned Surgical Provider 12/29/21 11/22/22 [place] [address] [place] [address] Family Medicine 08/27/22 [place] [address] [place] [address] Assigned PCP 08/31/22 10/27/23 Aimee Mascorro MD [address] [place] [address] Assigned Surgical Provider 11/23/22 12/20/22 Franny Shrestha PA-C [address] [place] [address] Assigned Surgical Provider 12/21/22 05/28/24 Amanda Ibrahim MD Assigned Heart and Vascular Provider 01/18/23 01/26/24 [facility] [address] [place] [address] Assigned PCP 10/28/23 10/26/24 documented as of this encounter
--- OUTSIDE RECORDS SUMMARY | 2025-04-18 13:40 | XMS_ITS | Encounter Summary ---
Author Organization [place] Address [address] [place] [address] Care Team Providers Care Nurse Practitioner Physician Assistant Name Role Phone Page, Nikki Vega RN Unavailable Unavailable Bryon Bell MD Primary Care Provider + [phone] Bryon Bell MD Unavailable [phone] Laureen Dye APRN DIRECTOR OF ENROLLMENT Unavailable [phone] Franny Shrestha PA-C Unavailable Franny Shrestha PA-C Unavailable Anyi Broderick MD Unavailable Bryon Bell MD Unavailable [phone] Anyi Broderick MD Unavailable Vitaliy Solo MD Primary Care Provider Bryon Bell MD Unavailable [phone] Anyi Broderick MD Unavailable Aimee Mascorro MD Unavailable [phone] Franny Shrestha PA-C Unavailable [phone] Amanda Ibrahim MD Unavailable [facility] Unavailabl e Encounter Details Date Type Department Care Team (Late st Contact Info) Description 09/27/2021 MyC Medical Advice [facility] [address] [place] [address] [place] [address] [facility] [place] [place] [address] Social History Tobacco Use Types Packs/Day Years Used Date Smoking Tobacco: Never Smokeless Tobacco: Never Alcohol Use Standard Drinks/Week Comments Yes 0 (1 standard drink = 0.6 oz pur e alcohol) occ PHQ-2 Answer Date Recorded PHQ-2 Score 0 09/06/2021 Sex and Gender Information Value Date Recorded Sex Assigned at Male 03/03/2021 2:33 PM CDT 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 SCHOOL PATROL Gender Identity Male 03/03/2021 2:33 PM CDT [...] on filedocumented in this encounter Care Teams Nurse Practitioner Physician Assistant Relationship Specialty Start Date End Date Bryon Bell MD PCP - General Family Medicine 03/06/21 05/05/22 Vitaliy Solo MD [facility] [place] [facility] [address] [place] [address] PCP - General Emergency Medicine 07/19/22 Nikki Pierre, SHERMAN Personal Advocate & Liaison (PAL) Family Medicine 03/06/21 03/25/22 [place] [address] [place] [address] Assigned PCP 03/11/21 01/18/22 Laureen Dye APRN DIRECTOR OF ENROLLMENT [address] [place] [address] Assigned Heart and Vascular Provider 05/27/21 01/17/23 Franny Shrestha PA-C [address] [place] [address] Physician Rental Manager Urology 10/01/21 Franny Shrestha PA-C [address] [place] [address] Assigned Surgical Provider 12/29/21 11/22/22 [place] [address] [place] [address] Assigned PCP 01/19/22 03/08/22 [place] [address] [place] [address] Assigned PCP 03/09/22 03/22/22 [place] [address] [place] [address] Assigned PCP 03/23/22 06/21/22 [place] [address] [place] [address] Family Medicine 08/27/22 [place] [address] [place] [address] Assigned PCP 08/31/22 10/27/23 Aimee Mascorro MD [address] [place] [address] Assigned Surgical Provider 11/23/22 12/20/22 Franny Shrestha PA-C [address] [place] [address] Assigned Surgical Provider 12/21/22 05/28/24 Amanda Ibrahim MD Assigned Heart and Vascular Provider 01/18/23 01/26/24 [facility] [address] [place] [address] Assigned PCP 10/28/23 10/26/24 documented as of this encounter
--- OUTSIDE RECORDS SUMMARY | 2025-04-18 13:40 | XMS_ITS | Encounter Summary ---
Author Organization [place] Address [address] [place] [address] Care Team Providers Care Security Orderly Name Role Phone Page, Nikki Vega RN Unavailable Unavailable Bryon Bell MD Primary Care Provider + [phone] Bryon Bell MD Unavailable [phone] Laureen Dye APRN OIL PIPELINE DISPATCHER Unavailable [phone] Franny Shrestha PA-C Unavailable Franny Shrestha PA-C Unavailable Anyi Broderick MD Unavailable Bryon Bell MD Unavailable [phone] Anyi Broderick MD Unavailable Vitaliy Solo MD Primary Care Provider Bryon Bell MD Unavailable [phone] Anyi Broderick MD Unavailable Aimee Mascorro MD Unavailable [phone] Franny Shrestha PA-C Unavailable [phone] Amanda Ibrahim MD Unavailable [facility] Unavailabl e Encounter Details Date Type Department Care Team (Late st Contact Info) Description 08/29/2021 [facility] Medical Advice [facility] [address] [place] [phone] Nikki Pierre, RN Social History Tobacco Use [...] CDT 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 BUSINESS LAW PROFESSOR Gender Identity Male 03/03/2021 2:33 PM CDT Sexual Orientation Straight 03/03/2021 2: 33 PM CDT COVID-19 Exposure Response Date Recorded In the last month, have you been in contact with someone who was confirmed or suspected to have Coronavirus / COVID-19? No / Unsure 08/29/2021 9:40 AM BUSINESS LAW PROFESSOR documented as of this encounter Plan of Treatment Not on file documented as of this encounter Visit Diagnoses Not on filedocumented in this encounter Care Teams Security Orderly Relationship Specialty Start Date End Date Bryon Bell MD PCP - General Family Medicine 03/06/21 05/05/22 Vitaliy Solo MD [facility] [address] [place] [address] PCP - General Emergency Medicine 07/19/22 Nikki Pierre, RN Personal Advocate & Liaison (PAL) Family Medicine 03/06/21 03/25/22 [place] [address] [place] [address] Assigned PCP 03/11/21 01/18/22 Laureen Dye, SUPERVISOR LENS GENERATING OIL PIPELINE DISPATCHER [address] [place] [address] Assigned Heart and Vascular Provider 05/27/21 01/17/23 Franny Shrestha PA-C [address] [place] [address] Physician Experience Specialist Urology 10/01/21 Franny Shrestha PA-C [address] [place] [address] Assigned Surgical Provider 12/29/21 11/22/22 [place] [address] [place] [address] Assigned PCP 01/19/22 03/08/22 [place] [address] [place] [address] Assigned PCP 03/09/22 03/22/22 [place] [address] [place] [address] Assigned PCP 03/23/22 06/21/22 [place] [address] [place] [address] Family Medicine 08/27/22 [place] [address] [place] [address] Assigned PCP 08/31/22 10/27/23 Aimee Mascorro MD [address], [address] [place] [address] Assigned Surgical Provider 11/23/22 12/20/22 Franny Shrestha PA-C [address] [place] [address] Assigned Surgical Provider 12/21/22 05/28/24 Amanda Ibrahim MD Assigned Heart and Vascular Provider 01/18/23 01/26/24 [facility] [address] [place] [address] Assigned PCP 10/28/23 10/26/24 documented as of this encounter
--- OUTSIDE RECORDS SUMMARY | 2025-04-18 13:40 | XMS_ITS | Encounter Summary ---
Author Organization [place] Address [address] [place] [address] Care Team Providers Care Wooden Box Maker Name Role Phone Franny Shrestha PA-C Unavailable Vitaliy Solo MD Primary Care Provider Bryon Bell MD Unavailable [phone] Anyi Broderick MD Unavailable Franny Shrestha PA-C Unavailable Amanda Ibrahim MD Unavailable Unavailabl e [facility] Unavailabl e Encounter Details Date Type Department Care Team (Late st Contact Info) Description 09/30/2023 MyC Medical Advice [facility] [address] [place] [phone] Yajaira Cedeño, INDUSTRIAL METHODS CONSULTANT Social History Tobacco Use Types Packs/Day Years [...] PM CDT 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 WIRE SPRING RELAY 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 Gender Identity Male 03/03/2021 2:33 PM CDT Sexual Orientation Straight 03/03/2021 2: 33 PM CDT documented as of this encounter Plan of Treatment Not on file documented as of this encounter Visit Diagnoses Not on filedocumented in this encounter Care Teams Wooden Box Maker Relationship Specialty Start Date End Date Vitaliy Solo MD [facility] [address] [place] [address] PCP - General Emergency Medicine 07/19/22 Franny Shrestha PA-C [address] [place] [address] Physician Tabulating Machine Mechanic Urology 10/01/21 [place] [address] [facility] [place] [address] Family Medicine 08/27/22 [place] [address] [place] [address] Assigned PCP 08/31/22 10/27/23 Franny Shrestha PA-C [address] [place] [address] Assigned Surgical Provider 12/21/22 05/28/24 Amanda Ibrahim MD Assigned Heart and Vascular Provider 01/18/23 01/26/24 [facility] [address] [place] [address] Assigned PCP 10/28/23 10/26/24 documented as of this encounter
--- OUTSIDE RECORDS SUMMARY | 2025-04-18 13:40 | XMS_ITS | Encounter Summary ---
Author Organization [place] Address [address] [place] [address] Care Team Providers Care Blacktop Spreader Name Role Phone Franny Shrestha PA-C Unavailable [phone] Vitaliy Solo MD Primary Care Provider Bryon Bell MD Unavailable [phone] Franny Shrestha PA-C Unavailable [phone] Amanda Ibrahim MD Unavailable Unavailabl e [facility] Unavailabl e Encounter Details Date Type Department Care Team (Late st Contact Info) Description 11/13/2023 MyC Medical Advice [facility] [address] [place] [phone] Yajaira Cedeño, FUR PLUCKER Social History Tobacco Use Types Packs/Day Years [...] PM CDT 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 LICENSED INSURANCE AGENT Gender Identity Male 03/03/2021 2:33 PM CDT Sexual Orientation Straight 03/03/2021 2: 33 PM CDT documented as of this encounter Plan of Treatment Not on file documented as of this encounter Visit Diagnoses Not on filedocumented in this encounter Care Teams Blacktop Spreader Relationship Specialty Start Date End Date Vitaliy Solo MD [facility] [address] [place] [address] PCP - General Emergency Medicine 07/19/22 Franny Shrestha PA-C [address] [facility] [address] [place] [address] Physician Pesticide Applicator Urology 10/01/21 [place] [address] [facility] [place] [address] Family Medicine 08/27/22 Franny Shrestha PA-C [address] [facility] [address] [place] [address] Assigned Surgical Provider 12/21/22 05/28/24 Amanda Ibrahim MD Assigned Heart and Vascular Provider 01/18/23 01/26/24 [facility] [address] [place] [address] Assigned PCP 10/28/23 10/26/24 documented as of this encounter
--- OUTSIDE RECORDS SUMMARY | 2025-04-18 13:40 | XMS_ITS | Encounter Summary ---
Author Organization [place] Address [address] [place] [address] Care Team Providers Care Solar Photovoltaic Systems Engineer Name Role Phone No Ref-Primary, Physician Primary Care Provider Bryon Bell MD Unavailable [phone] Bryon Bell MD Unavailable [phone] Anyi Broderick MD Unavailable Nikki Pierre RN Unavailable Unavailable Bryon Bell MD Primary Care Provider + [phone] Bryon Bell MD Unavailable [phone] Amanda Ibrahim MD Unavailable UnavailLaureen Doe APRN MACHINE HEEL SEAT LASTER Unavailable [phone] Franny Shrestha PA-C Unavailable [phone] Franny Shrestha PA-C Unavailable [phone] Anyi Broderick MD Unavailable Bryon Bell MD Unavailable [phone] Anyi Broderick MD Unavailable iVtaliy Solo MD Primary Care Provider Bryon Bell MD Unavailable [phone] Anyi Broderick MD Unavailable Aimee Mascorro MD Unavailable [phone] Franny Shrestha PA-C Unavailable [phone] Amanda Ibrahim MD Unavailable Unavailabl e [facility] Encounter Details Date Type Department Care Team (Late st Contact Info) Description 08/28/[address] 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 Gender Identity Male 03/03/2021 2:33 PM CDT Sexual Orientation Straight 03/03/2021 2: 33 PM CDT documented as of this encounter Plan of Treatment Not on file documented as of this encounter Visit Diagnoses Not on filedocumented in this encounter Care Teams Solar Photovoltaic Systems Engineer Relationship Specialty Start Date End Date No Ref-Primary, Physician PCP - General 08/14/18 03/05/21 [place] [address] [place] [address] PCP - Assigned PCP 07/30/18 09/08/18 Bryon Bell MD PCP - General Family Medicine 03/06/21 05/05/22 Vitaliy Solo MD [facility] [address] [place] [address] PCP - General Emergency Medicine 07/19/22 [place] [address] [place] [address] Assigned PCP 07/30/18 01/18/21 [place] [address] [place] [address] Assigned PCP 01/19/21 03/10/21 Nikki Pierre RN Personal Advocate & Liaison (PAL) Family Medicine 03/06/21 03/25/22 [place] [address] [place] [address] Assigned PCP 03/11/21 01/18/22 Amanda Ibrahim MD Assigned Heart and Vascular Provider 04/22/21 05/26/21 Laureen Dye APRN MACHINE HEEL SEAT LASTER [address] [place] [address] Assigned Heart and Vascular Provider 05/27/21 01/17/23 Franny Shrestha PA-C [address] [place] [address] Physician Keel Press Operator Urology 10/01/21 Franny Shrestha PA-C [address] [place] [address] Assigned Surgical Provider 12/29/21 11/22/22 [place] [address] [place] [address] Assigned PCP 01/19/22 03/08/22 [place] [address] [place] [address] Assigned PCP 03/09/22 03/22/22 [place] [address] [address] [place] [address] Assigned PCP 03/23/22 06/21/22 [place] [address] [place] [place] [address] Family Medicine 08/27/22 [place] [address] [address] [place] [address] Assigned PCP 08/31/22 10/27/23 Aimee Mascorro MD [address], [address] [place] [address] Assigned Surgical Provider 11/23/22 12/20/22 Franny Shrestha PA-C [address] [place] [address] Assigned Surgical Provider 12/21/22 05/28/24 Amanda Ibrahim MD Assigned Heart and Vascular Provider 01/18/23 01/26/24 [facility] [address] [place] [address] Assigned PCP 10/28/23 10/26/24 documented as of this encounter
--- OUTSIDE RECORDS SUMMARY | 2025-04-18 13:40 | XMS_ITS | Encounter Summary ---
Author Organization [place] Address [address] [place] [address] Care Team Providers Care Human Resources Intern Name Role Phone Anyi Broderick MD Unavailable Nikki Pierre RN Unavailable Unavailable Bryon Bell MD Primary Care Provider + [phone] Bryon Bell MD Unavailable [phone] Amanda Ibrahim MD Unavailable [facility]availabl [facility] Unavailable [phone] Franny Shrestha PA-C Unavailable [phone] Franny Shrestha PA-C Unavailable [phone] Anyi Broderick MD Unavailable Bryon Bell MD Unavailable [phone] Anyi Broderick MD Unavailable Vitaliy Solo MD Primary Care Provider Bryon Bell MD Unavailable [phone] Anyi Broderick MD Unavailable Aimee Mascorro MD Unavailable [phone] Franny Shrestha-C Unavailable [phone] Amanda Ibrahim MD Un[facility] Reason for Visit * Reason Onset Date Comments MyChart Communication 03/07/2021 Encounter Details Date Type Department Care Team (Latest Contact Info) Description 03/07/2021 [facility] [id number] [place] [phone] Nikki Pierre RN MyChart Communication Social [...] PM CDT 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 Gender Identity Male 03/03/2021 2:33 PM CDT [...] 03/21/2021 9:40 AM CDT Pt returned call [facility] reviewed echo and reason this is [...] Will check early next week for appt Nkiki Pierre RN * Telephone Encounter - Nikki [...] on filedocumented in this encounter Care Teams Human Resources Intern Relationship Specialty Start Date End Date Bryon Bell MD PCP - General Family Medicine 03/06/21 05/05/22 Vitaliy Solo MD [facility] [address] [facility] [place] [address] PCP - General Emergency Medicine 07/19/22 [place] [address] [place] [address] Assigned PCP 01/19/21 03/10/21 Nikki Pierre RN Personal Advocate & Liaison (PAL) Family Medicine 03/06/21 03/25/22 [place] [address] [place] [address] Assigned PCP 03/11/21 01/18/22 Amanda Ibrahim MD Assigned Heart and Vascular Provider 04/22/21 05/26/21 Laureen Dye, PARTY PLAN SALES UNIT SALES LEADER RAILCAR CARPENTER [address] [place] [address] Assigned Heart and Vascular Provider 05/27/21 01/17/23 Franny Shrestha PA-C [address] [place] [address] Physician Configuration Specialist Urology 10/01/21 Franny Shrestha PA-C [address] [place] [address] Assigned Surgical Provider 12/29/21 11/22/22 [place] [address] [place] [address] Assigned PCP 01/19/22 03/08/22 [place] [address] [place] [address] Assigned PCP 03/09/22 03/22/22 [place] [address] [address] [place] [address] Assigned PCP 03/23/22 06/21/22 [place] [address] [place] [address] Family Medicine 08/27/22 [place] [address] [place] [address] Assigned PCP 08/31/22 10/27/23 Aimee Mascorro MD [address] [place] [address] Assigned Surgical Provider 11/23/22 12/20/22 Franny Shrestha PA-C [address] [place] [address] Assigned Surgical Provider 12/21/22 05/28/24 Amanda Ibrahim MD Assigned Heart and Vascular Provider 01/18/23 01/26/24 [facility] [address] [place] [address] Assigned PCP 10/28/23 10/26/24 documented as of this encounter
--- OUTSIDE RECORDS SUMMARY | 2025-04-18 13:40 | XMS_ITS | Encounter Summary ---
Author Organization [place] Address [address] [place] [address] Care Team Providers Care Autocad Detailer Name Role Phone Laureen Dye APRN RECAPPER Unavailable [phone] Franny Shrestha PA-C Unavailable [phone] Franny Shrestha PA-C Unavailable Vitaliy Solo MD Primary Care Provider Bryon Bell MD Unavailable Anyi Broderick MD Unavailable Aimee Mascorro MD Unavailable [phone] Franny Shrestha PA-C Unavailable Amanda Ibrahim MD Unavailable Unavailabl e [facility] Unavailabl e Encounter Details Date Type Department Care Team (Late st Contact Info) Description 10/11/2022 MyC Medical Advice [facility] [address] [place] [phone] Amanda Ibrahim MD Social History Tobacco Use Types Packs/Day Years Used Date Smoking Tobacco: Never Smokeless Tobacco: Never Alcohol Use Standard Drinks/Week Comments Yes 0 (1 standard drink = 0.6 oz pur e alcohol) occ PHQ-2 Answer Date Recorded PHQ-2 Score 0 12/24/2021 Sex and Gender Information Value Date Recorded Sex Assigned at Male 03/03/2021 2:33 PM CDT 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 Gender Identity Male 03/03/2021 2:33 PM CDT Sexual Orientation Straight 03/03/2021 2: 33 PM CDT documented as of this encounter Plan of Treatment Not on file documented as of this encounter Visit Diagnoses Not on filedocumented in this encounter Care Teams Autocad Detailer Relationship Specialty Start Date End Date Vitaliy Solo MD [facility] [address] [place] [address] PCP - General Emergency Medicine 07/19/22 Laureen Dye, NERVE SPECIALIST RECAPPER [address] [place] [address] Assigned Heart and Vascular Provider 05/27/21 01/17/23 Franny Shrestha PA-C [address] [place] [address] Physician Public Policy Analyst Urology 10/01/21 Franny Shrestha PA-C [address] [place] [address] Assigned Surgical Provider 12/29/21 11/22/22 [place] [address] [place] [address] Family Medicine 08/27/22 [place] [address] [place] [address] Assigned PCP 08/31/22 10/27/23 Aimee Mascorro MD [address] [place] [address] Assigned Surgical Provider 11/23/22 12/20/22 Franny Shrestha PA-C [address] [place] [address] Assigned Surgical Provider 12/21/22 05/28/24 Amanda Ibrahim MD Assigned Heart and Vascular Provider 01/18/23 01/26/24 [facility] [address] [place] [address] Assigned PCP 10/28/23 10/26/24 documented as of this encounter
--- OUTSIDE RECORDS SUMMARY | 2025-04-18 13:40 | XMS_ITS | Encounter Summary ---
Author Organization [place] Address [address] [place] [address] Care Team Providers Care Steam Drier Operator Name Role Phone Page, Nikki Vega RN Unavailable Unavailable Bryon Bell MD Primary Care Provider + [phone] Bryon Bell MD Unavailable [phone] Amanda Ibrahim MD Unavailable Unavailabl Laureen Dye APRN [facility] Unavailable [phone] Franny Shrestha PA-C Unavailable [phone] Franny Shrestha PA-C Unavailable [phone] Anyi Broderick MD Unavailable Bryon Bell MD Unavailable [phone] Anyi Broderick MD Unavailable Vitaliy Solo MD Primary Care Provider Bryon Bell MD Unavailable Anyi Broderick MD Unavailable Aimee Mascorro MD Unavailable [phone] Franny Shrestha PA-C Unavailable [phone] Amanda Ibrahim MD Un[facility] Encounter Details Date Type Department Care Team (Late st Contact Info) Description 05/03/2021 [facility] Medical Advice [facility] [address] [place] [address] Amanda Ibrahim MD Social History Tobacco [...] PM CDT 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 Gender Identity Male 03/03/2021 2:33 PM CDT [...] on filedocumented in this encounter Care Teams Steam Drier Operator Relationship Specialty Start Date End Date Bryon Bell MD PCP - General Family Medicine 03/06/21 05/05/22 Vitaliy Solo MD [facility] [address] [place] [address] PCP - General Emergency Medicine 07/19/22 Nikki Pierre, RN Personal Advocate & Liaison (PAL) Family Medicine 03/06/21 03/25/22 [place] [address] [place] [address] Assigned PCP 03/11/21 01/18/22 Amanda Ibrahim MD Assigned Heart and Vascular Provider 04/22/21 05/26/21 Hardik Laureen GUS Bergman EDGE TRIMMER MECHANIC [address] [place] [address] Assigned Heart and Vascular Provider 05/27/21 01/17/23 Franny Shrestha PA-C [address] [place] [address] Physician Tobacco Sample Puller Urology 10/01/21 Franny Shrestha PA-C [address] [place] [address] Assigned Surgical Provider 12/29/21 11/22/22 [place] [address] [place] [address] Assigned PCP 01/19/22 03/08/22 [place] [address] [place] [address] Assigned PCP 03/09/22 03/22/22 [place] [address] [place] [address] Assigned PCP 03/23/22 06/21/22 [place] [address] [place] [address] Family Medicine 08/27/22 [place] [address] [place] [address] Assigned PCP 08/31/22 10/27/23 Aimee Mascorro MD [address] [place] [address] Assigned Surgical Provider 11/23/22 12/20/22 Franny Shrestha PA-C [address] [place] [address] Assigned Surgical Provider 12/21/22 05/28/24 Amanda Ibrhaim MD Assigned Heart and Vascular Provider 01/18/23 01/26/24 [facility] [address] [place] [address] Assigned PCP 10/28/23 10/26/24 documented as of this encounter
--- OUTSIDE RECORDS SUMMARY | 2025-04-18 13:40 | XMS_ITS | Encounter Summary ---
Author Organization [place] Address [address] [place] [address] Care Team Providers Care World Designer Name Role Phone Page, Nikki Vega RN Unavailable Unavailable Bryon Bell MD Primary Care Provider + [phone] Bryon Bell MD Unavailable [phone] Amanda Ibrahim MD Unavailable Unavailabl Laureen Dye APRN [facility] Unavailable [phone] Franny Shrestha PA-C Unavailable [phone] Franny Shrestha PA-C Unavailable [phone] Anyi Broderick MD Unavailable Bryon Bell MD Unavailable [phone] Anyi Broderick MD Unavailable Vitaliy Solo MD Primary Care Provider Bryon Bell MD Unavailable [phone] Anyi Broderick MD Unavailable Aimee Mascorro MD Unavailable [phone] Franny Shrestha PA-C Unavailable [phone] Amanda Ibrahim MD Un[facility] Encounter Details Date Type Department Care Team (Late st Contact Info) Description 04/19/2021 [facility] Medical Advice [facility] [address] [place] [address] Amanda Ibrahim MD Social History Tobacco [...] PM CDT 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 Gender Identity Male 03/03/2021 2:33 PM [...] on filedocumented in this encounter Care Teams World Designer Relationship Specialty Start Date End Date Bryon Bell MD PCP - General Family Medicine 03/06/21 05/05/22 Vitaliy Solo MD [facility] [address] [place] [address] PCP - General Emergency Medicine 07/19/22 Nikki Pierre, RN Personal Advocate & Liaison (PAL) Family Medicine 03/06/21 03/25/22 [place] [address] [place] [address] Assigned PCP 03/11/21 01/18/22 Amanda Ibrahim MD Assigned Heart and Vascular Provider 04/22/21 05/26/21 Hardik Laureen GUS Bergman PEDIATRIC AUDIOLOGIST [address] [place] [address] Assigned Heart and Vascular Provider 05/27/21 01/17/23 Franny Shrestha PA-C [address] [place] [address] Physician Business Solutions Architect Urology 10/01/21 Franny Shrestha PA-C [address] [place] [address] Assigned Surgical Provider 12/29/21 11/22/22 [place] [address] [place] [address] Assigned PCP 01/19/22 03/08/22 [place] [address] [place] [address] Assigned PCP 03/09/22 03/22/22 [place] [address] [place] [address] Assigned PCP 03/23/22 06/21/22 [place] [address] [place] [address] Family Medicine 08/27/22 [place] [address] [place] [address] Assigned PCP 08/31/22 10/27/23 Aimee Mascorro MD [address] [place] [address] Assigned Surgical Provider 11/23/22 12/20/22 Franny Shrestha PA-C [address] [place] [address] Assigned Surgical Provider 12/21/22 05/28/24 Amanda Ibrahim MD Assigned Heart and Vascular Provider 01/18/23 01/26/24 [facility] [address] [place] [address] Assigned PCP 10/28/23 10/26/24 documented as of this encounter
--- OUTSIDE RECORDS SUMMARY | 2025-04-18 13:40 | XMS_ITS | Encounter Summary ---
Author Organization [place] Address [address] [place] [address] Care Team Providers Care Trouble Clerk Name Role Phone Page, Nikki Vega RN Unavailable Unavailable Bryon Bell MD Primary Care Provider + [phone] Bryon Bell MD Unavailable [phone] Amanda Ibrahim MD Unavailable Unavailabl [facility] Unavailable [phone] Franny Shrestha PA-C Unavailable [phone] Franny Shrestha PA-C Unavailable [phone] Anyi Broderick MD Unavailable Bryon Bell MD Unavailable [phone] Anyi Broderick MD Unavailable Vitaliy Solo MD Primary Care Provider Bryon Bell MD Unavailable [phone] Anyi Broderick MD Unavailable Aimee Mascorro MD Unavailable [phone] Franny Shrestha PA-C Unavailable [phone] Amanda Ibrahim MD Un[facility] Reason for Visit * Reason Onset Date Comments MyChart Communication 05/03/2021 Encounter Details Date Type Department Care Team (Late st Contact Info) Description 05/03/2021 [facility] [id number] [place] [address] [place] [address] [address] [place], [place] [id number] MyChart Communication Social History Tobacco Use Types [...] CDT 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 Gender Identity Male 03/03/2021 2:33 PM CDT [...] on filedocumented in this encounter Care Teams Trouble Clerk Relationship Specialty Start Date End Date Bryon Bell MD PCP - General Family Medicine 03/06/21 05/05/22 Vitaliy Solo MD [facility] [address] [place] [address] PCP - General Emergency Medicine 07/19/22 Nikki Pierre RN Personal Advocate & Liaison (PAL) Family Medicine 03/06/21 03/25/22 [place] [address] [place] [address] Assigned PCP 03/11/21 01/18/22 Amanda Ibrahim MD Assigned Heart and Vascular Provider 04/22/21 05/26/21 Hardik Laureen BergmanGUS PIG CASTER [address] [place] [address] Assigned Heart and Vascular Provider 05/27/21 01/17/23 Franny Shrestha PA-C [address] [place] [address] Physician Reagent Tender Urology 10/01/21 Franny Shrestha PA-C [address] [place] [address] Assigned Surgical Provider 12/29/21 11/22/22 [place] [address] [place] [address] Assigned PCP 01/19/22 03/08/22 [place] [address] [place] [address] Assigned PCP 03/09/22 03/22/22 [place] [address] [place] [address] Assigned PCP 03/23/22 06/21/22 [place] [address] [place] [address] Family Medicine 08/27/22 [place] [address] [place] [address] Assigned PCP 08/31/22 10/27/23 Aimee Mascorro MD [address] [place] [address] Assigned Surgical Provider 11/23/22 12/20/22 Franny Shrestha PA-C [address] [place] [address] Assigned Surgical Provider 12/21/22 05/28/24 Amanda Ibrahim MD Assigned Heart and Vascular Provider 01/18/23 01/26/24 [facility] [address] [place] [address] Assigned PCP 10/28/23 10/26/24 documented as of this encounter
--- OUTSIDE RECORDS SUMMARY | 2025-04-18 13:40 | XMS_ITS | Encounter Summary ---
Author Organization [place] Address [address] [place] [address] Care Team Providers Care Gristmiller Name Role Phone Page, Nikki Vega RN Unavailable Unavailable Bryon Bell MD Primary Care Provider [phone] Bryon Bell MD Unavailable [phone] Laureen Dye APRN HEALTH CARE LEGAL ASSISTANT Unavailable [phone] Franny Shrestha PA-C Unavailable Franny Shrestha PA-C Unavailable Anyi Broderick MD Unavailable Bryon Bell MD Unavailable Anyi Broderick MD Unavailable Vitaliy Solo MD Primary Care Provider Bryon Bell MD Unavailable [phone] Anyi Broderick MD Unavailable Aimee Mascorro MD Unavailable [phone] Franny Shrestha PA-C Unavailable [phone] Amanda Ibrahim MD Unavailable [facility] Unavailabl e Encounter Details Date Type Department Care Team (Late st Contact Info) Description 12/07/2021 [facility] Medical Advice [facility] [address] [place] [phone] Franny Shrestha PA-C [address] [place] [address] Social History Tobacco Use Types Packs/Day Years Used Date Smoking Tobacco: Never Smokeless Tobacco: Never Alcohol Use Standard Drinks/Week Comments Yes 0 (1 standard drink = 0.6 oz pur e alcohol) occ PHQ-2 Answer Date Recorded PHQ-2 Score 0 09/06/2021 Sex and Gender Information Value Date Recorded Sex Assigned at Male 03/03/2021 2:33 PM CDT 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 Gender Identity Male 03/03/2021 2:33 PM CDT Sexual Orientation Straight 03/03/2021 2: 33 PM CDT documented as of this encounter Plan of Treatment Not on file documented as of this encounter Visit Diagnoses Not on filedocumented in this encounter Care Teams Gristmiller Relationship Specialty Start Date End Date Bryon Bell MD PCP - General Family Medicine 03/06/21 05/05/22 Vitaliy Solo MD [facility] [address] [place] [address] PCP - General Emergency Medicine 07/19/22 Nikki Pierre RN Personal Advocate & Liaison (PAL) Family Medicine 03/06/21 03/25/22 [place] [address] [place] [address] Assigned PCP 03/11/21 01/18/22 Laureen Dye APRN HEALTH CARE LEGAL ASSISTANT [address] [place] [address] Assigned Heart and Vascular Provider 05/27/21 01/17/23 Franny Shrestha PA-C [address] [place] [address] Physician Gold Blower Urology 10/01/21 Franny Shrestha PA-C [address] [place] [address] Assigned Surgical Provider 12/29/21 11/22/22 [place] [address] [place] [address] Assigned PCP 01/19/22 03/08/22 [place] [address] [place] [address] Assigned PCP 03/09/22 03/22/22 [place] [address] [place] [address] Assigned PCP 03/23/22 06/21/22 [place] [address] [place] [address] Family Medicine 08/27/22 [place] [address] [place] [address] Assigned PCP 08/31/22 10/27/23 Aimee Mascorro MD [address] [place] [address] Assigned Surgical Provider 11/23/22 12/20/22 Franny Shrestha PA-C [address] [place] [address] Assigned Surgical Provider 12/21/22 05/28/24 Amanda Ibrahim MD Assigned Heart and Vascular Provider 01/18/23 01/26/24 [facility] [address] [place] [address] Assigned PCP 10/28/23 10/26/24 documented as of this encounter
--- OUTSIDE RECORDS SUMMARY | 2025-04-18 13:40 | XMS_ITS | Encounter Summary ---
Author Organization [place] Address [address] [place] [address] Care Team Providers Care Leaf Coverer Name Role Phone Laureen Dye APRN TRUCK LOADER OVERHEAD CRANE Unavailable [phone] Franny Shrestha PA-C Unavailable [phone] Franny Shrestha PA-C Unavailable Vitaliy Solo MD Primary Care Provider rByon Bell MD Unavailable Anyi Broderick MD Unavailable Aimee Mascorro MD Unavailable [phone] Franny Shrestha PA-C Unavailable Amanda Ibrahim MD Unavailable Unavailabl e [facility] Unavailabl e Encounter Details Date Type Department Care Team (Late st Contact Info) Description 10/07/2022 My[facility] Medical Advice [facility] [address] [place] [phone] Amanda Ibrahim MD Social History Tobacco Use Types Packs/Day Years Used Date Smoking Tobacco: Never Smokeless Tobacco: Never Alcohol Use Standard Drinks/Week Comments Yes 0 (1 standard drink = 0.6 oz pur e alcohol) occ PHQ-2 Answer Date Recorded PHQ-2 Score 0 12/24/2021 Sex and Gender Information Value Date Recorded Sex Assigned at Male 03/03/2021 2:33 PM CDT 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 Gender Identity Male 03/03/2021 2:33 PM CDT Sexual Orientation Straight 03/03/2021 2: 33 PM CDT documented as of this encounter Plan of Treatment Not on file documented as of this encounter Visit Diagnoses Not on filedocumented in this encounter Care Teams Leaf Coverer Relationship Specialty Start Date End Date Vitaliy Solo MD [facility] [address] [place] [address] PCP - General Emergency Medicine 07/19/22 Laureen Dye, UPHOLSTERY AUTO TRIMMER TRUCK LOADER OVERHEAD CRANE [address] [place] [address] Assigned Heart and Vascular Provider 05/27/21 01/17/23 Franny Shrestha PA-C [address] [place] [address] Physician Supervisor Contact Lens Urology 10/01/21 Franny Shrestha PA-C [address] [place] [address] Assigned Surgical Provider 12/29/21 11/22/22 [place] [address] [place] [address] Family Medicine 08/27/22 [place] [address] [place] [address] Assigned PCP 08/31/22 10/27/23 Aimee Mascorro MD [address] [place] [address] Assigned Surgical Provider 11/23/22 12/20/22 Franny Shretsha PA-C [address] [place] [address] Assigned Surgical Provider 12/21/22 05/28/24 Amanda Ibrahim MD Assigned Heart and Vascular Provider 01/18/23 01/26/24 [facility] [address] [place] [address] Assigned PCP 10/28/23 10/26/24 documented as of this encounter
--- OUTSIDE RECORDS SUMMARY | 2025-04-18 13:40 | XMS_ITS | Encounter Summary ---
Author Organization [place] Address [address] [place] [address] Care Team Providers Care Exhibition Carver Name Role Phone No Ref-Primary, Physician Primary Care Provider Bryon Bell MD Unavailable [phone] Anyi Broderick MD Unavailable Nikki Pierre RN Unavailable Unavailable Bryon Bell MD Primary Care Provider + [phone] Bryon Bell MD Unavailable [phone] Amanda Ibrahim MD Unavailable UnavailLaureen Doe APRN, CNP Unavailable [phone] Franny ShresthaC Unavailable [phone] Franny Shrestha PA-C Unavailable [phone] Anyi Broderick MD Unavailable Bryon Bell MD Unavailable [phone] Anyi Broderick MD Unavailable Vitaliy Solo MD Primary Care Provider Bryon Bell MD Unavailable [phone] Anyi Broderick MD Unavailable Aimee Mascorro MD Unavailable [phone] Franny Shrestha PA-C Unavailable [phone] Amanda Ibrahim MD [facility] Reason for Visit * Reason Onset Date Comments MyChart Communication 03/09/2020 Encounter Details Date Type Department Care Team (Late st Contact Info) Description 03/09/2020 MyC Medical Advice [facility] [address] [place] [phone] [place] [address] [place] [address] MyChart Communication Social History Tobacco Use Types [...] PM CDT 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 Gender Identity Male 03/03/2021 2:33 [...] on filedocumented in this encounter Care Teams Exhibition Carver Relationship Specialty Start Date End Date No Ref-Primary, Physician PCP - General 08/14/18 03/05/21 Bryon Bell MD PCP - General Family Medicine 03/06/21 05/05/22 Vitaliy Solo MD [facility] [address] [place] [address] PCP - General Emergency Medicine 07/19/22 [place] [address] [place] [address] Assigned PCP 07/30/18 01/18/21 [place] [address] [place] [address] Assigned PCP 01/19/21 03/10/21 Nikki Pierre, RN Personal Advocate & Liaison (PAL) Family Medicine 03/06/21 03/25/22 [place] [address] [place] [address] Assigned PCP 03/11/21 01/18/22 Amanda Ibrahim MD Assigned Heart and Vascular Provider 04/22/21 05/26/21 Laureen Dye APRN CERTIFIED BENCH JEWELER TECHNICIAN [address] [place] [address] Assigned Heart and Vascular Provider 05/27/21 01/17/23 Franny Shrestha PA-C [address] [place] [address] Physician Senior Education Specialist Urology 10/01/21 Franny Shrestha PA-C [address] [place] [address] Assigned Surgical Provider 12/29/21 11/22/22 [place] [address] [place] [address] Assigned PCP 01/19/22 03/08/22 [place] [address] [place] [address] Assigned PCP 03/09/22 03/22/22 [place] [address] [place] [address] Assigned PCP 03/23/22 06/21/22 [place] [address] [place] [address] Family Medicine 08/27/22 [place] [address] [place] [address] Assigned PCP 08/31/22 10/27/23 Aimee Mascorro MD [address] [place] [address] Assigned Surgical Provider 11/23/22 12/20/22 Franny Shrestha PA-C [address] [place] [address] Assigned Surgical Provider 12/21/22 05/28/24 Amanda Ibrahim MD Assigned Heart and Vascular Provider 01/18/23 01/26/24 [facility] [address] [place] [address] Assigned PCP 10/28/23 10/26/24 documented as of this encounter
--- OUTSIDE RECORDS SUMMARY | 2025-04-18 13:40 | XMS_ITS | Encounter Summary ---
Author Organization [place] Address [address] [place] [address] Care Team Providers Care Bracelet Form Coverer Name Role Phone Page, Nikki Vega RN Unavailable Unavailable Bryon Bell MD Primary Care Provider + [phone] Bryon Bell MD Unavailable [phone] Laureen Dye APRN IT SOFTWARE ENGINEER Unavailable [phone] Franny Shrestha PA-C Unavailable Franny Shrestha PA-C Unavailable [phone] Anyi Broderick MD Unavailable Bryon Bell MD Unavailable [phone] Anyi Broderick MD Unavailable Vitaliy Solo MD Primary Care Provider Bryon Bell MD Unavailable [phone] Anyi Broderick MD Unavailable Aimee Mascorro MD Unavailable [phone] Franny Shrestha PA-C Unavailable Amanda Ibrahim MD Un[facility] Unavailabl e Reason for Visit * Reason Onset Date Comments Outreach 10/10/2021 [facility] Encounter Details Date Type Department Care Team (Late st Contact Info) Description 10/10/2021 MyC Medical [facility] [address] [place] [phone] [place] [address] [place] [address] Outreach (PAL) Social History Tobacco Use Types Packs/Day Years Used Date Smoking Tobacco: Never Smokeless Tobacco: Never Alcohol Use Standard Drinks/Week Comments Yes 0 (1 standard drink = 0.6 oz pur e alcohol) occ PHQ-2 Answer Date Recorded PHQ-2 Score 0 09/06/2021 Sex and Gender Information Value Date Recorded Sex Assigned at Male 03/03/2021 2:33 PM CDT 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 Gender Identity Male 03/03/2021 2:33 PM [...] on filedocumented in this encounter Care Teams Bracelet Form Coverer Relationship Specialty Start Date End Date Bryon Bell MD PCP - General Family Medicine 03/06/21 05/05/22 Vitaliy Solo MD [facility] [address] [place] [address] PCP - General Emergency Medicine 07/19/22 Nikki Pierre, SHERMAN Personal Advocate & Liaison (PAL) Family Medicine 03/06/21 03/25/22 [place] [address] [place] [address] Assigned PCP 03/11/21 01/18/22 Hardik Laureen Madalyn STEM PROCESSING MACHINE OPERATOR IT SOFTWARE ENGINEER [address] [place] [address] Assigned Heart and Vascular Provider 05/27/21 01/17/23 Franny Shrestha PA-C [address] [place] [address] Physician Vamp Seamer Urology 10/01/21 Franny Shrestha PA-C [address] [place] [address] Assigned Surgical Provider 12/29/21 11/22/22 [place] [address] [place] [address] Assigned PCP 01/19/22 03/08/22 [place] [address] [place] [address] Assigned PCP 03/09/22 03/22/22 [place] [address] [place] [address] Assigned PCP 03/23/22 06/21/22 [place] [address] [place] [address] Family Medicine 08/27/22 [place] [address] [place] [address] Assigned PCP 08/31/22 10/27/23 Aimee Mascorro MD [address] [place] [address] Assigned Surgical Provider 11/23/22 12/20/22 Franny Shrestha PA-C [address] [place] [address] Assigned Surgical Provider 12/21/22 05/28/24 Amanda Ibrahim MD Assigned Heart and Vascular Provider 01/18/23 01/26/24 [facility] [address] [place] [address] Assigned PCP 10/28/23 10/26/24 documented as of this encounter
--- OUTSIDE RECORDS SUMMARY | 2025-04-18 13:40 | XMS_ITS | Encounter Summary ---
Author Organization [facility] Address [address] [place] [address] Care Team Providers Care Tank Processor Name Role Phone Page, Nikki Vega RN Unavailable Unavailable Bryon Bell MD Primary Care Provider + [phone] Bryon Bell MD Unavailable [phone] Amanda Ibrahim MD Unavailable Unavailabl Laureen Dye APRN [facility] Unavailable [phone] Franny Shrestha PA-C Unavailable [phone] Franny Shrestha PA-C Unavailable [phone] Anyi Broderick MD Unavailable Bryon Bell MD Unavailable [phone] Anyi Broderick MD Unavailable Vitaliy Solo MD Primary Care Provider Bryon Bell MD Unavailable [phone] Anyi Broderick MD Unavailable Aimee Mascorro MD Unavailable [phone] Franny Shrestha PA-C Unavailable [phone] Amanda Ibrahim MD Un[facility] Encounter Details Date Type Department Care Team (Late st Contact Info) Description 04/19/2021 [facility] [place] [facility] [address] [facility] [address] [place] [address] Amanda Ibrahim MD Social History Tobacco [...] PM CDT 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 Gender Identity Male 03/03/2021 2:33 PM CDT [...] on filedocumented in this encounter Care Teams Tank Processor Relationship Specialty Start Date End Date Bryon Bell MD PCP - General Family Medicine 03/06/21 05/05/22 Vitaliy Solo MD [facility] [address] [place] [address] PCP - General Emergency Medicine 07/19/22 Nikki Pierre, RN Personal Advocate & Liaison (PAL) Family Medicine 03/06/21 03/25/22 [place] [address] [place] [address] Assigned PCP 03/11/21 01/18/22 Amanda Ibrahim MD Assigned Heart and Vascular Provider 04/22/21 05/26/21 Hardik Laureen GUS Bergman CONTROL SYSTEM COMPUTER SCIENTIST [address] [place] [address] Assigned Heart and Vascular Provider 05/27/21 01/17/23 Franny Shrestha PA-C [address] [place] [address] Physician Ophthalmic Lens Inspector Urology 10/01/21 Franny Shrestha PA-C [address] [place] [address] Assigned Surgical Provider 12/29/21 11/22/22 [place] [address] [place] [address] Assigned PCP 01/19/22 03/08/22 [place] [address] [place] [address] Assigned PCP 03/09/22 03/22/22 [place] [address] [place] [address] Assigned PCP 03/23/22 06/21/22 [place] [address] [place] [address] Family Medicine 08/27/22 [place] [address] [place] [address] Assigned PCP 08/31/22 10/27/23 Aimee Mascorro MD [address] [place] [address] Assigned Surgical Provider 11/23/22 12/20/22 Franny Shrestha PA-C [address] [place] [address] Assigned Surgical Provider 12/21/22 05/28/24 Amanda Ibrahim MD Assigned Heart and Vascular Provider 01/18/23 01/26/24 [facility] [address] [place] [address] Assigned PCP 10/28/23 10/26/24 documented as of this encounter
--- OUTSIDE RECORDS SUMMARY | 2025-04-18 13:40 | XMS_ITS | Encounter Summary ---
Author Organization [facility] Address [address] [place] [address] Care Team Providers Care Traffic Engineer Name Role Phone Page, Nikki Vega RN Unavailable Unavailable Bryon Bell MD Primary Care Provider [phone] Bryon Bell MD Unavailable [phone] Laureen Dye APRN MOLDED GOODS CONTROLS OPERATOR Unavailable [phone] Franny Shrestha PA-C Unavailable Franny Shrestha PA-C Unavailable Anyi Broderick MD Unavailable Bryon Bell MD Unavailable Anyi Broderick MD Unavailable Vitaliy Solo MD Primary Care Provider Bryon Bell MD Unavailable [phone] Anyi Broderick MD Unavailable Aimee Mascorro MD Unavailable [phone] Franny Shrestha PA-C Unavailable Amanda Ibrahim MD [facility] Reason for Visit * Reason Onset Date Comments MyChart Communication 06/06/2021 Encounter Details Date Type Department Care Team (Late st Contact Info) Description 06/06/2021 [facility] [place] Medical Advice [facility] [address] [place] [phone] [place] [address] [place] [address] MyChart Communication Social History Tobacco Use Types [...] PM CDT 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 RECOVERY COLLECTOR Gender Identity Male 03/03/2021 2:33 PM CDT Sexual Orientation Straight 03/03/2021 2: 33 PM CDT COVID-19 Exposure Response Date Recorded In the last month, have you been in contact with someone who was confirmed or suspected to have Coronavirus / COVID-19? No / Unsure 06/08/2021 1:05 PM RECOVERY COLLECTOR documented as of this encounter Plan of Treatment Not on file documented as of this encounter Visit Diagnoses Not on filedocumented in this encounter Care Teams Traffic Engineer Relationship Specialty Start Date End Date Bryon Bell MD PCP - General Family Medicine 03/06/21 05/05/22 Vitaliy Solo MD [facility] [address] [place] [address] PCP - General Emergency Medicine 07/19/22 Nikki Pierre, SHERMAN Personal Advocate & Liaison (PAL) Family Medicine 03/06/21 03/25/22 [place] [address] [place] [address] Assigned PCP 03/11/21 01/18/22 Laureen Dye APRN MOLDED GOODS CONTROLS OPERATOR [address] [place] [address] Assigned Heart and Vascular Provider 05/27/21 01/17/23 Franny Shrestha PA-C [address] [place] [address] Physician Consulting Utility Forester Urology 10/01/21 Franny Shrestha PA-C [address] [place] [address] Assigned Surgical Provider 12/29/21 11/22/22 [place] [address] [place] [address] Assigned PCP 01/19/22 03/08/22 [place] [address] [place] [address] Assigned PCP 03/09/22 03/22/22 [place] [address] [place] [address] Assigned PCP 03/23/22 06/21/22 [place] [address] [place] [address] Family Medicine 08/27/22 [place] [address] [place] [address] Assigned PCP 08/31/22 10/27/23 Aimee Mascorro MD [address] [place] [address] Assigned Surgical Provider 11/23/22 12/20/22 Franny Shrestha PA-C [address] [place] [address] Assigned Surgical Provider 12/21/22 05/28/24 Amanda Ibrahim MD Assigned Heart and Vascular Provider 01/18/23 01/26/24 [facility] [address] [place] [address] Assigned PCP 10/28/23 10/26/24 documented as of this encounter
--- OUTSIDE RECORDS SUMMARY | 2025-04-18 13:40 | XMS_ITS | Encounter Summary ---
Author Organization [facility] Address [address] [place] [address] Care Team Providers Care Manager Dairy Name Role Phone Laureen Dye APRN ASSOCIATE PROFESSOR OF COUNSELING Unavailable [phone] Franny Shrestha PA-C Unavailable Franny Shrestha PA-C Unavailable Vitaliy Solo MD Primary Care Provider Bryon Bell MD Unavailable [phone] Anyi Broderick MD Unavailable Aimee Mascorro MD Unavailable [phone] Franny Shrestha PA-C Unavailable Amanda Ibrahim MD Unavailable Unavailabl e [facility] Unavailabl e Encounter Details Date Type Department Care Team (Late st Contact Info) Description 08/09/2022 [facility] Medical Advice [facility] [address] [place] [address] Josie Rosa, RN Social History [...] PM CDT 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 No / Unsure 08/01/2022 11:05 AM FURNITURE BUILDER documented as of this encounter Plan of Treatment Not on file documented as of this encounter Visit Diagnoses Not on filedocumented in this encounter Care Teams Manager Dairy Relationship Specialty Start Date End Date Vitaliy Solo MD [facility] [address] [place] [address] PCP - General Emergency Medicine 07/19/22 Laureen Dye, LOWERATOR OPERATOR ASSOCIATE PROFESSOR OF COUNSELING [address] [place] [address] Assigned Heart and Vascular Provider 05/27/21 01/17/23 Franny Shrestha PA-C [address] [place] [address] Physician Chiropractor Sole Practitioner Urology 10/01/21 Franny Shrestha PA-C [address] [place] [address] Assigned Surgical Provider 12/29/21 11/22/22 [place] [address] [place] [address] Family Medicine 08/27/22 [place] [address] [place] [address] Assigned PCP 08/31/22 10/27/23 Aimee Mascorro MD [address] [place] [address] Assigned Surgical Provider 11/23/22 12/20/22 Franny Shrestha PA-C [address] [place] [address] Assigned Surgical Provider 12/21/22 05/28/24 Amanda Ibrahim MD Assigned Heart and Vascular Provider 01/18/23 01/26/24 [facility] [address] [place] [address] Assigned PCP 10/28/23 10/26/24 documented as of this encounter
--- OUTSIDE RECORDS SUMMARY | 2025-04-18 13:40 | XMS_ITS | Encounter Summary ---
Author Organization [facility] Address [address] [place] [address] Care Team Providers Care Tester [employer] Packages Name Role Phone Page, Nikki Veag RN Unavailable Unavailable Bryon Bell MD Primary Care Provider [phone] Bryon Bell MD Unavailable [phone] Amanda Ibrahim MD Unavailable Unavailabl [facility]N [facility] Unavailable [phone] Franny Shrestha PA-C Unavailable [phone] Franny Shrestha PA-C Unavailable [phone] Anyi Broderick MD Unavailable Bryon Bell MD Unavailable [phone] Anyi Broderick MD Unavailable Vitaliy Solo MD Primary Care Provider Bryon Bell MD Unavailable [phone] Anyi Broderick MD Unavailable Aimee Mascorro MD Unavailable [phone] Franny Shrestha PA-C Unavailable [phone] Amanda Ibrahim MD Un[facility] Reason for Visit * Reason Onset Date Comments MyChart Communication 05/08/2021 Encounter Details Date Type Department Care Team (Late st Contact Info) Description 05/08/2021 [facility] [id number] [place] [phone] [place] [address] [address] [place], [place] [id number] MyChart Communication Social History Tobacco Use Types [...] PM CDT 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 Gender Identity Male 03/03/2021 2:33 PM CDT [...] on filedocumented in this encounter Care Teams Tester Semiconductor Packages Relationship Specialty Start Date End Date Bryon Bell MD PCP - General Family Medicine 03/06/21 05/05/22 Vitaliy Solo MD [facility] [address] [place] [address] PCP - General Emergency Medicine 07/19/22 Nikki Pierre RN Personal Advocate & Liaison (PAL) Family Medicine 03/06/21 03/25/22 [place] [address] [place] [address] Assigned PCP 03/11/21 01/18/22 Amanda Ibrahim MD Assigned Heart and Vascular Provider 04/22/21 05/26/21 Hardik Laureen BergmanGUS BEAM DYER RECESSED VAT [address] [place] [address] Assigned Heart and Vascular Provider 05/27/21 01/17/23 Franny Shrestha PA-C [address] [place] [address] Physician Pelt Inspector Urology 10/01/21 Franny Shrestha PA-C [address] [place] [address] Assigned Surgical Provider 12/29/21 11/22/22 [place] [address] [place] [address] Assigned PCP 01/19/22 03/08/22 [place] [address] [place] [address] Assigned PCP 03/09/22 03/22/22 [place] [address] [place] [address] Assigned PCP 03/23/22 06/21/22 [place] [address] [place] [address] Family Medicine 08/27/22 [place] [address] [place] [address] Assigned PCP 08/31/22 10/27/23 Aimee Mascorro MD [address] [place] [address] Assigned Surgical Provider 11/23/22 12/20/22 Franny Shrestha PA-C [address] [place] [address] Assigned Surgical Provider 12/21/22 05/28/24 Amanda Ibrahim MD Assigned Heart and Vascular Provider 01/18/23 01/26/24 [facility] [address] [place] [address] Assigned PCP 10/28/23 10/26/24 documented as of this encounter
--- OUTSIDE RECORDS SUMMARY | 2025-04-18 13:40 | XMS_ITS | Encounter Summary ---
Author Organization [facility] Address [address] [place] [address] Care Team Providers Care Advertising Strategist Name Role Phone Laureen Dye APRN ACCOUNTS PAYABLES CLERK Unavailable [phone] Franny Shrestha PA-C Unavailable [phone] Franny Shrestha PA-C Unavailable Vitaliy Solo MD Primary Care Provider Bryon Bell MD Unavailable Anyi Broderick MD Unavailable Aimee Mascorro MD Unavailable [phone] Franny Shrestha PA-C Unavailable Amanda Ibrahim MD Unavailable Unavailabl e [facility] Unavailabl e Encounter Details Date Type Department Care Team (Late st Contact Info) Description 09/15/2022 My[facility] Medical Advice [facility] [address] [place] [phone] Amanda Ibrahim MD Social History Tobacco Use Types Packs/Day Years Used Date Smoking Tobacco: Never Smokeless Tobacco: Never Alcohol Use Standard Drinks/Week Comments Yes 0 (1 standard drink = 0.6 oz pur e alcohol) occ PHQ-2 Answer Date Recorded PHQ-2 Score 0 12/24/2021 Sex and Gender Information Value Date Recorded Sex Assigned at Male 03/03/2021 2:33 PM CDT 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 EXECUTIVE ADMINISTRATIVE ASSISTANT Gender Identity Male 03/03/2021 2:33 PM CDT Sexual Orientation Straight 03/03/2021 2: 33 PM CDT COVID-19 Exposure Response Date Recorded In the last 10 days, have yo u been in contact with someone who was confirmed or suspected to have Coronavirus/COVID-19? Unable to assess 08/27/2022 1:55 PM EXECUTIVE ADMINISTRATIVE ASSISTANT documented as of this encounter Plan of Treatment Not on file documented as of this encounter Visit Diagnoses Not on filedocumented in this encounter Care Teams Advertising Strategist Relationship Specialty Start Date End Date Vitaliy Solo MD [facility] [address] [place] [address] PCP - General Emergency Medicine 07/19/22 Laureen Dye, STIFF NECK LOADER ACCOUNTS PAYABLES CLERK [address] [place] [address] Assigned Heart and Vascular Provider 05/27/21 01/17/23 Franny Shrestha PA-C [address] [place] [address] Physician Hygiene Assistant Urology 10/01/21 Franny Shrestha PA-C [address] [place] [address] Assigned Surgical Provider 12/29/21 11/22/22 [place] [address] [place] [address] Family Medicine 08/27/22 [place] [address] [place] [address] Assigned PCP 08/31/22 10/27/23 Aimee Mascorro MD [address] [place] [address] Assigned Surgical Provider 11/23/22 12/20/22 Franny Shrestha PA-C [address] [place] [address] Assigned Surgical Provider 12/21/22 05/28/24 Amanda Ibrahim MD Assigned Heart and Vascular Provider 01/18/23 01/26/24 [facility] [address] [place] [address] Assigned PCP 10/28/23 10/26/24 documented as of this encounter
--- OUTSIDE RECORDS SUMMARY | 2025-04-18 13:40 | XMS_ITS | Encounter Summary ---
Author Organization [facility] Address [address] [place] [address] Care Team Providers Care Digital Computer Operator Name Role Phone Nikki Pierre RN Unavailable Unavailable Bryon Bell MD Primary Care Provider [phone] Laureen Dye APRN TUBE DRAWER Unavailable [phone] Franny ShresthaC Unavailable [phone] Franny Shrestha PA-C Unavailable Anyi Broderick MD Unavailable Bryon Bell MD Unavailable [phone] Anyi Broderick MD Unavailable Vitaliy Solo MD Primary Care Provider Bryon Bell MD Unavailable [phone] Anyi Broderick MD Unavailable Aimee Mascorro MD Unavailable [phone] Franny Shrestha PA-C Unavailable Amanda Ibrahim MD Unavailable Unavailabl e [facility] Unavailabl e Encounter Details Date Type Department Care Team (Late st Contact Info) Description 02/06/2022 [facility] Medical Advice [facility] [address] [place] [address] Page, Nikki M, RN Social [...] PM CDT 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 Gender Identity Male 03/03/2021 2:33 PM CDT Sexual Orientation Straight 03/03/2021 2: 33 PM CDT documented as of this encounter Plan of Treatment Not on file documented as of this encounter Visit Diagnoses Not on filedocumented in this encounter Care Teams Digital Computer Operator Relationship Specialty Start Date End Date Bryon Bell MD PCP - General Family Medicine 03/06/21 05/05/22 Vitaliy Solo MD [facility] [address] [address] PCP - General Emergency Medicine 07/19/22 Nikki Pierre, RN Personal Advocate & Liaison (PAL) Family Medicine 03/06/21 03/25/22 Laureen Dye APRN TUBE DRAWER [address] [place] [address] Assigned Heart and Vascular Provider 05/27/21 01/17/23 Franny Shrestha PA-C [address] [place] [address] Physician Salvage Mechanic Urology 10/01/21 Franny Shrestha PA-C [address] [place] [address] Assigned Surgical Provider 12/29/21 11/22/22 [place] [address] [place] [address] Assigned PCP 01/19/22 03/08/22 [place] [address] [place] [address] Assigned PCP 03/09/22 03/22/22 [place] [address] [place] [address] Assigned PCP 03/23/22 06/21/22 [place] [address] [place] [address] Family Medicine 08/27/22 [place] [address] [place] [address] Assigned PCP 08/31/22 10/27/23 Aimee Mascorro MD [address] [place] [address] Assigned Surgical Provider 11/23/22 12/20/22 Franny Shrestha PA-C [address] [place] [address] Assigned Surgical Provider 12/21/22 05/28/24 Amanda Ibrahim MD Assigned Heart and Vascular Provider 01/18/23 01/26/24 [facility] [address] [place] [address] Assigned PCP 10/28/23 10/26/24 documented as of this encounter
--- OUTSIDE RECORDS SUMMARY | 2025-04-18 13:40 | XMS_ITS | Encounter Summary ---
Author Organization [facility] Address [address] [place] [address] Care Team Providers Care Manager Valuation Name Role Phone Page, Nikki Vega RN Unavailable Unavailable Bryon Bell MD Primary Care Provider [phone] Bryon Bell MD Unavailable [phone] Amanda Ibrahim MD Unavailable Unavailabl Laureen Dye APRN [facility] Unavailable [phone] Franny Shrestha PA-C Unavailable [phone] Franny Shrestha PA-C Unavailable [phone] Anyi Broderick MD Unavailable Bryon Bell MD Unavailable [phone] Anyi Broderick MD Unavailable Vitaliy Solo MD Primary Care Provider Bryon Bell MD Unavailable [phone] Anyi Broderick MD Unavailable Aimee Mascorro MD Unavailable [phone] Franny Shrestha PA-C Unavailable [phone] Amanda Ibrahim MD Un[facility] Encounter Details Date Type Department Care Team (Late st Contact Info) Description 05/14/2021 [facility] Medical Advice [facility] Heart [facility] [address] [facility] [address] [place] [address] Amanda Ibrahim MD Social History Tobacco [...] CDT 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 Gender Identity Male 03/03/2021 2:33 PM [...] filedocumented in this encounter Care Teams Manager Valuation Relationship Specialty Start Date End Date Bryon Bell MD PCP - General Family Medicine 03/06/21 05/05/22 Vitaliy Solo MD [facility] [address] [place] [address] PCP - General Emergency Medicine 07/19/22 Nikki Pierre, RN Personal Advocate & Liaison (PAL) Family Medicine 03/06/21 03/25/22 [place] [address] [place] [address] Assigned PCP 03/11/21 01/18/22 Amanda Ibrahim MD Assigned Heart and Vascular Provider 04/22/21 05/26/21 Hardik Laureen GUS Bergman PIT CREW SUPPORT WORKER [address] [place] [address] Assigned Heart and Vascular Provider 05/27/21 01/17/23 Franny Shrestha PA-C [address] [place] [address] Physician Customer Sales Advisor Urology 10/01/21 Franny Shrestha PA-C [address] [place] [address] Assigned Surgical Provider 12/29/21 11/22/22 [place] [address] [place] [address] Assigned PCP 01/19/22 03/08/22 [place] [address] [place] [address] Assigned PCP 03/09/22 03/22/22 [place] [address] [place] [address] Assigned PCP 03/23/22 06/21/22 [place] [address] [place] [address] Family Medicine 08/27/22 [place] [address] [place] [address] Assigned PCP 08/31/22 10/27/23 Aimee Mascorro MD [address] [place] [address] Assigned Surgical Provider 11/23/22 12/20/22 Franny Shrestha PA-C [address] [place] [address] Assigned Surgical Provider 12/21/22 05/28/24 Amanda Ibrahim MD Assigned Heart and Vascular Provider 01/18/23 01/26/24 [facility] [address] [place] [address] Assigned PCP 10/28/23 10/26/24 documented as of this encounter
--- OUTSIDE RECORDS SUMMARY | 2025-04-18 13:40 | XMS_ITS | Encounter Summary ---
Author Organization [facility] Address [address] [place] [address] Care Team Providers Care Forms Builder Name Role Phone Page, Nikki Vega RN Unavailable Unavailable Bryon Bell MD Primary Care Provider + [phone] Bryon Bell MD Unavailable [phone] Amanda Ibrahim MD Unavailable [facility]availabl [facility] APRN [facility] Unavailable [phone] Franny Shrestha PA-C Unavailable [phone] Franny Shrestha PA-C Unavailable [phone] Anyi Broderick MD Unavailable Bryon Bell MD Unavailable [phone] Anyi Broderick MD Unavailable Vitaliy Solo MD Primary Care Provider Bryon Bell MD Unavailable [phone] Anyi Broderick MD Unavailable Aimee Mascorro MD Unavailable [phone] Franny Shrestha PA-C Unavailable [phone] Amanda Ibrahim MD Un[facility] e Reason for Visit * Reason Onset Date Comments Outreach 05/14/2021 PAL Encounter Details Date Type Department Care Team (Late st Contact Info) Description 05/14/2021 MyC Medical Advice [facility] [id number] [place] [phone] Nikki Pierre RN Outreach ([facility] ) Social History Tobacco Use Types [...] PM CDT 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 Gender Identity Male 03/03/2021 2:33 PM CDT [...] filedocumented in this encounter Care Teams Forms Builder Relationship Specialty Start Date End Date Bryon Bell MD PCP - General Family Medicine 03/06/21 05/05/22 Vitaliy Solo MD [facility] [address] [place] [address] PCP - General Emergency Medicine 07/19/22 Nikki Pierre, SHERMAN Personal Advocate & Liaison (PAL) Family Medicine 03/06/21 03/25/22 [place] [address] [place] [address] Assigned PCP 03/11/21 01/18/22 Amanda Ibarhim MD Assigned Heart and Vascular Provider 04/22/21 05/26/21 Laureen Dye, REMEDY DEVELOPER WASH RACK OPERATOR [address] [place] [address] Assigned Heart and Vascular Provider 05/27/21 01/17/23 Franny Shrestha PA-C [address] [place] [address] Physician Recruiting Specialist Urology 10/01/21 Franny Shrestha PA-C [address] [place] [address] Assigned Surgical Provider 12/29/21 11/22/22 [place] [address] [place] [address] Assigned PCP 01/19/22 03/08/22 [place] [address] [place] [address] Assigned PCP 03/09/22 03/22/22 [place] [address] [place] [address] Assigned PCP 03/23/22 06/21/22 [place] [address] [place] [address] Family Medicine 08/27/22 [place] [address] [place] [address] Assigned PCP 08/31/22 10/27/23 Aimee Mascorro MD [address] [place] [address] Assigned Surgical Provider 11/23/22 12/20/22 Franny Shrestha PA-C [address] [place] [address] Assigned Surgical Provider 12/21/22 05/28/24 Amanda Ibrahim MD Assigned Heart and Vascular Provider 01/18/23 01/26/24 [facility] [address] [place] [address] Assigned PCP 10/28/23 10/26/24 documented as of this encounter
--- OUTSIDE RECORDS SUMMARY | 2025-04-18 13:40 | XMS_ITS | Encounter Summary ---
Author Organization [facility] Address [address] [place] [address] Care Team Providers Care Financial Analysis Advisor Name Role Phone Page, Nikki Vega RN Unavailable Unavailable Bryon Bell MD Primary Care Provider [phone] Bryon Bell MD Unavailable [phone] Laureen Dye APRN HARP REPAIRER Unavailable [phone] Franny Shrestha PA-C Unavailable [phone] Franny Shrestha PA-C Unavailable Anyi Broderick MD Unavailable Bryon Bell MD Unavailable Anyi Broderick MD Unavailable Vitaliy Solo MD Primary Care Provider Bryon Bell MD Unavailable [phone] Anyi Broderick MD Unavailable Aimee Mascorro MD Unavailable [phone] Franny Shrestha PA-C Unavailable Amanda Ibrahim MD Un[facility] Unavailabl e Reason for Visit * Reason Onset Date Comments MyChart Communication 10/01/2021 KRAIG daley ch - results Encounter Details Date Type Department Care Team (Latest Contact Info) Description 10/01/2021 MyC Medical Advice [facility] [address] [place] [phone] Nikki Pierre RN MyChart Communication (PAL [...] PM CDT 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 Letter sent- [facility] will monitor for f/u Nikki Pierre RN * Telephone Encounter - Nikki Pierre RN - 10/05/2021 12:18 PM CDT LM for call back - See below Nikki Pierre RN documented in this encounter Plan of Treatment Not on file documented as of this encounter Visit Diagnoses Not on filedocumented in this encounter Care Teams Financial Analysis Advisor Relationship Specialty Start Date End Date Bryon Bell MD PCP - General Family Medicine 03/06/21 05/05/[address] [facility] [address] [place] [address] PCP - General Emergency Medicine 07/19/22 Nikki Pierre, RN Personal Advocate & Liaison (PAL) Family Medicine 03/06/21 03/25/22 [place] [address] [place] [address] Assigned PCP 03/11/21 01/18/22 Laureen Dye APRN HARP REPAIRER [address] [place] [address] Assigned Heart and Vascular Provider 05/27/21 01/17/23 Franny Shrestha PA-C [address] [place] [address] Physician Sales Supervisor Urology 10/01/21 Franny Shrestha PA-C [address] [place] [address] Assigned Surgical Provider 12/29/21 11/22/22 [place] [address] [place] [address] Assigned PCP 01/19/22 03/08/22 [place] [address] [place] [address] Assigned PCP 03/09/22 03/22/22 [place] [address] [address] [address] Assigned PCP 03/23/22 06/21/22 [place] [address] [place] [address] Family Medicine 08/27/22 [place] [address] [place] [address] Assigned PCP 08/31/22 10/27/23 Aimee Mascorro MD [address], [address] [place] [address] Assigned Surgical Provider 11/23/22 12/20/22 Franny Shrestha PA-C [address] [place] [address] Assigned Surgical Provider 12/21/22 05/28/24 Amanda Ibrahim MD Assigned Heart and Vascular Provider 01/18/23 01/26/24 [facility] [address] [place] [address] Assigned PCP 10/28/23 10/26/24 documented as of this encounter
--- OUTSIDE RECORDS SUMMARY | 2025-04-18 13:41 | XMS_ITS | Encounter Summary ---
Author Organization [place] Address [address] [place] [address] Care Team Providers Care Slip Filler Name Role Phone Page, Nikki Vega RN Unavailable Unavailable Bryon Bell MD Primary Care Provider [phone] Broyn Bell MD Unavailable [phone] Amanda Ibrahim MD Unavailable Unavailabl Laureen Dye APRN [facility] Unavailable [phone] Franny Shrestha PA-C Unavailable [phone] Franny Shrestha PA-C Unavailable [phone] Anyi Broderick MD Unavailable Bryon Bell MD Unavailable [phone] Anyi Broderick MD Unavailable Vitaliy Solo MD Primary Care Provider Bryon Bell MD Unavailable Anyi Broderick MD Unavailable Aimee Mascorro MD Unavailable [phone] Franny Shrestha PA-C Unavailable [phone] Amanda Ibrahim MD Un[facility] e Encounter Details Date Type Department Care Team (Late st Contact Info) Description 04/18/2021 [facility] [address] [place] [phone] [place] [address] [place] [address] Social History Tobacco Use Types Packs/Day Years [...] PM CDT 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 Gender Identity Male 03/03/2021 [...] on filedocumented in this encounter Care Teams Slip Filler Relationship Specialty Start Date End Date Bryon Bell MD PCP - General Family Medicine 03/06/21 05/05/22 Vitaliy Solo MD [facility] [address] [place] [address] PCP - General Emergency Medicine 07/19/22 Nikki Pierre RN Personal Advocate & Liaison (PAL) Family Medicine 03/06/21 03/25/22 [place] [address] [place] [address] Assigned PCP 03/11/21 01/18/22 Amanda Ibrahim MD Assigned Heart and Vascular Provider 04/22/21 05/26/21 Hardik Laureen GUS Bergman WIRELESS OPERATOR [address] [place] [address] Assigned Heart and Vascular Provider 05/27/21 01/17/23 Franny Shrestha PA-C [address] [place] [address] Physician Medical Laboratory Technologist Urology 10/01/21 Franny Shrestha PA-C [address] [place] [address] Assigned Surgical Provider 12/29/21 11/22/22 [place] [address] [place] [address] Assigned PCP 01/19/22 03/08/22 [place] [address] [place] [address] Assigned PCP 03/09/22 03/22/22 [place] [address] [place] [address] Assigned PCP 03/23/22 06/21/22 [place] [address] [place] [address] Family Medicine 08/27/22 [place] [address] [place] [address] Assigned PCP 08/31/22 10/27/23 Aimee Mascorro MD [address], [address] [place] [address] Assigned Surgical Provider 11/23/22 12/20/22 Franny Shrestha PA-C [address] [place] [address] Assigned Surgical Provider 12/21/22 05/28/24 Amanda Ibrahim MD Assigned Heart and Vascular Provider 01/18/23 01/26/24 [facility] [address] [place] [address] Assigned PCP 10/28/23 10/26/24 documented as of this encounter
--- OUTSIDE RECORDS SUMMARY | 2025-04-18 13:41 | XMS_ITS | Clinical Summary ---
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 Gender Identity Male 03/03/2021 2:33 PM CDT Sexual Orientation Straight 03/03/2021 2: 33 PM CDT Last Filed Vital Signs Vital Sign Reading Time Taken Comments Blood Pressure 160/85 11/19/2022 2:07 PM CDT Pulse 63 11/19/2022 2:07 PM CDT Temperature 36 C (96.8 F) 09/06/2021 10:26 AM TRANSITIONS RN CARE COORDINATOR Respiratory Rate 14 09/06/2021 10:26 AM TRANSITIONS RN CARE COORDINATOR Oxygen Saturation 98% 07/19/2022 2:28 PM TRANSITIONS RN CARE COORDINATOR Inhaled Oxygen Concentration - - Weight 88.9 [...] 08/01/2023 08/01/2022, 08/08, 05/10/2021, Additional history exists PHQ-2 (once per calendar year) 2024 12/24/2021, 09/06/2021, 08/29/2021, Additional history exists LIPID 02/27/2025 02/28/2020, 08/07, 08/28/2017, Additional history exists COVID-19 VACCINE ( season) 2025 02/19/2021, 01/22/2021 INFLUENZA VACCINE (#1) 2025 7, 05/16/2016, 06/06/2015, Additional history exists DIABETES SCREENING [...] FIT Discontinued FLEX SIG Discontinued HPV VACCINE (No Doses Required) Completed MENINGITIS VACCINE Aged Out No longer eligible based on patient's age to complete this topic sDNA (Cologuard) Discontinued Procedures Procedure Name Priority Date/Time Associated Diagnosis Comments BASIC METABOLIC PANEL Routine 08/01/2022 11:08 AM TRANSITIONS RN CARE COORDINATOR Atrial fibrillation, unspecified type (H) TSH WITH FREE T4 REFLEX Routine 07/19/2022 1:01 PM TRANSITIONS RN CARE COORDINATOR Atrial fibrillation (H) LIPID REFLEX TO DIRECT LDL PANEL Routine 02/28/2020 11:36 AM CDT Lipid screening COLONOSCOPY - HIM SCAN 03/10/2014 12:00 AM CDT from Last 3 Months or Most Recently Relevant to Health Maintenance Results * (ABNORMAL) Basic metabolic panel (08/01/2022 11:08 AM TRANSITIONS RN CARE COORDINATOR) Sodium 140 136 - 145 mmol/L 08/01/2022 [...] 0.67 - 1.17 mg/dL 08/01/2022 11:43 AM TRANSITIONS RN CARE COORDINATOR LABORATORY Calcium 8.9 8.8 - 10.2 mg/dL 08/01/2022 11:43 AM TRANSITIONS RN CARE COORDINATOR LABORATORY Glucose 187(H) 70 - 99 mg/dL 08/01/2022 11:43 AM TRANSITIONS RN CARE COORDINATOR LABORATORY GFR Estimate 85 >60 mL/min/1.7 3m2 08/01/2022 11:43 AM TRANSITIONS RN CARE COORDINATOR LABORATORY Comment:eGFR calculated usin g 2020 CKD-EPI equation. Blood STRUCTURE OF LEFT UPPER LIMB / Unknown Venipuncture / Unknown 08/01/2022 11:08 AM TRANSITIONS RN CARE COORDINATOR 08/01/2022 11:13 AM TRANSITIONS RN CARE COORDINATOR Amanda Ibrahim MD LAB - BLOOD ORDERABLES Christina l Result [facility] [address] Lab (1st floor, no room number) [place] [address], [facility] [phone] * TSH with free T4 reflex (07/19/2022 1:01 PM TRANSITIONS RN CARE COORDINATOR) TSH 1.91 0.30 - 4.20 uIU/mL 07/19/2022 1:44 PM TRANSITIONS RN CARE COORDINATOR LABORATORY Blood STRUCTURE OF LEFT UPPER LIMB / Unknown Venipuncture / Unknown 07/19/2022 1:01 PM TRANSITIONS RN CARE COORDINATOR 07/19/2022 1:01 PM TRANSITIONS RN CARE COORDINATOR Amanda Ibrahim MD LAB - BLOOD ORDERABLES Christina l Result [facility] [address] Lab (1st floor, no room number) [place] [address], [facility] [phone] * (ABNORMAL) Lipid panel reflex to direct LDL Fasting (02/28/2020 11:36 AM CDT) Cholesterol 188 <200 mg/dL 02/29/2020 8:[address] [facility] Triglycerides 67 <150 mg/dL 02/29/2020 8:[address] [facility] Comment:Fasting specimen HDL Cholesterol 69 >39 mg/dL 0 8:[address] [facility] LDL Cholesterol Calculated 106(H) <100 mg/dL 02/29/2020 8:[address] [facility] Comment: Above desirable: 100-129 mg/dl Borderline High: 130-159 mg/dL High: 160-189 mg/dL Very high: >189 mg/dl Non HDL Cholesterol 119 <130 mg/dL 02/29/2020 8:[address] [facility] Blood specimen (specimen) 02/28/2020 11:36 AM CDT 02/28/2020 11:37 AM CDT us Bryon Bell MD LAB - BLOOD ORDERABLES Final Result [facility] [address] [place] [address] * COLONOSCOPY - HIM SCAN (03/10/2014 12:00 AM CDT) 03/10/2014 us Provider Outside PROCEDURES Final Result from Last 3 Months or Most Recently Relevant to Health Maintenance Insurance [facility] [employer] [facility] [employer] [employer] [facility] [employer] [employer] Care Teams Slab Worker Relationship Specialty Start Date End Date Vitaliy Solo MD [facility] [address] [place] [address] PCP - General Emergency Medicine 07/19/22 Franny Shrestha PA-C [address] [address] Physician Library Clerical Assistant Urology 10/01/21 [place] [address] [place] [address] Family Medicine 08/27/22
--- OUTSIDE RECORDS SUMMARY | 2025-04-18 13:41 | XMS_ITS | Encounter Summary ---
Author Organization [facility] Address [address] [place] [address] Care Team Providers Care Nuclear Medicine Officer Name Role Phone Laureen Dye APRN LEAD ACCOUNTANT Unavailable [phone] Franny Shrestha PA-C Unavailable Franny Shrestha PA-C Unavailable Vitaliy Solo MD Primary Care Provider Bryon Bell MD Unavailable [phone] Anyi Broderick MD Unavailable Aimee Mascorro MD Unavailable [phone] Franny Shrestha PA-C Unavailable [phone] Amanda Ibrahim MD Unavailable Unavailabl e [facility] Unavailabl e Encounter Details Date Type Department Care Team (Late st Contact Info) Description 08/01/2022 MyC Medical Advice [facility] [address] [place] [phone] Amanda Ibrahim MD Social History Tobacco Use Types Packs/Day Years Used Date Smoking Tobacco: Never Smokeless Tobacco: Never Alcohol Use Standard Drinks/Week Comments Yes 0 (1 standard drink = 0.6 oz pur e alcohol) occ PHQ-2 Answer Date Recorded PHQ-2 Score 0 12/24/2021 Sex and Gender Information Value Date Recorded Sex Assigned at Male 03/03/2021 2:33 PM CDT 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 No / Unsure 08/01/2022 11:05 AM MORTICIAN SUPPLIES 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 documented as of this encounter Plan of Treatment Not on file documented as of this encounter Visit Diagnoses Not on filedocumented in this encounter Care Teams Nuclear Medicine Officer Relationship Specialty Start Date End Date Vitaliy Solo MD [facility] [address] [place] [address] PCP - General Emergency Medicine 07/19/22 Laureen Dye, RING CONDUCTOR LEAD ACCOUNTANT [address] [place] [address] Assigned Heart and Vascular Provider 05/27/21 01/17/23 Franny Shrestha PA-C [address] [facility] [address] [place] [address] Physician Neurosurgery Physician Urology 10/01/21 Franny Shrestha PA-C [address] [facility] [address] [place] [address] Assigned Surgical Provider 12/29/21 11/22/22 [place] [address] [place] [address] Family Medicine 08/27/22 [place] [address] [place] [address] Assigned PCP 08/31/22 10/27/23 Aimee Mascorro MD [address] [place] [address] Assigned Surgical Provider 11/23/22 12/20/22 Franny Shrestha PA-C [address] [place] [address] Assigned Surgical Provider 12/21/22 05/28/24 Amanda Ibrahim MD Assigned Heart and Vascular Provider 01/18/23 01/26/24 [facility] [address] [place] [address] Assigned PCP 10/28/23 10/26/24 documented as of this encounter
--- OUTSIDE RECORDS SUMMARY | 2025-04-18 13:41 | XMS_ITS | Patient Health Record ---
Author Organization [facility] Address [address] [place] [address] Care Team Providers Care Front Office Assistant Name Role Phone Vitaliy Solo Primary Care Provider Unavaila CANDI Snowden Unavailable [phone] [facility] [place] [place] [facility] Un available Allergies No Known Allergies Reason For Referral No Information Medications Medication SIG (Take, Route, Frequency, Duration) Notes Start Date End Date Status Metoprolol Succinate ER 50 MG Tablet Extended Release 24 Hour TAKE 1 TABLET (50 MG) BY MOUTH DAILY Oral; Duration: 90 [id number],Unavailabl e Active Lisinopril 40 MG Tablet Oral; Duration: 90 Active Amiodarone HCl 200 MG Tablet Oral; Duration: 90 Active Eliquis 5 MG Tablet TAKE 1 TABLET (5 MG) BY MOUTH 2 TIMES DAILY Oral; Duration: 28 [id number],Unavailabl e Active Social History Tobacco Use: Social History Observation Description Date Details (start date - stop date) Never Smoker NA - NA Social History Alcohol Use: Social Info Question Answer Notes Recreational drugs Recreational Drug Use: No Alcohol Screen Did you have a drink containing alcohol in the past year? Yes How often did you have a drink containing alcohol in the past year? 2 to 3 times a week (3 points) How many drinks did you have on a typical day when you were drinking in the past year? 1 or 2 drinks (0 point) How often did you have 6 or more drinks on one occasion in the past year? 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
--- OUTSIDE RECORDS SUMMARY | 2025-04-18 13:41 | XMS_ITS | Encounter Summary ---
Author Organization [facility] Address [address] [place] [address] Care Team Providers Care Lineman Name Role Phone Laureen Dye APRN PSYCHOLOGY CLINICIAN Unavailable [phone] Franny Shrestha PA-C Unavailable Franny Shrestha PA-C Unavailable Anyi Broderick MD Unavailable Vitaliy Solo MD Primary Care Provider Bryon Bell MD Unavailable Anyi Broderick MD Unavailable Aimee Mascorro MD Unavailable [phone] Franny Shrestha PA-C Unavailable [phone] Amanda Ibrahim MD Unavailable Unavailabl e [facility] Unavailabl e Encounter Details Date Type Department Care Team (Late st Contact Info) Description 06/07/2022 MyC Medical Advice [facility] [address] [place] [address] Franny Shrestha PA-C [address] [facility] [address] [place], [place] [address] Social History Tobacco Use Types Packs/Day Years Used Date Smoking Tobacco: Never Smokeless Tobacco: Never Alcohol Use Standard Drinks/Week Comments Yes 0 (1 standard drink = 0.6 oz pur e alcohol) occ PHQ-2 Answer Date Recorded PHQ-2 Score 0 12/24/2021 Sex and Gender Information Value Date Recorded Sex Assigned at Male 03/03/2021 2:33 PM CDT 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 Gender Identity Male 03/03/2021 2:33 PM CDT Sexual Orientation Straight 03/03/2021 2 :33 PM CDT documented as of this encounter Plan of Treatment Not on file documented as of this encounter Visit Diagnoses Not on filedocumented in this encounter Care Teams Lineman Relationship Specialty Start Date End Date Vitaliy Solo MD [facility] [address] [place] [address] PCP - General Emergency Medicine 07/19/22 Laureen Dye, HEALTH INFORMATION INTERNSHIP PSYCHOLOGY CLINICIAN [address] [place] [address] Assigned Heart and Vascular Provider 05/27/21 01/17/23 Franny Shrestha PA-C [address] [place] [address] Physician Base Brander Urology 10/01/21 Franny Shrestha PA-C [address] [place] [address] Assigned Surgical Provider 12/29/21 11/22/22 [place] [address] [place] [address] Assigned PCP 03/23/22 06/21/22 [place] [address] [place] [address] Family Medicine 08/27/22 [place] [address] [place] [address] Assigned PCP 08/31/22 10/27/23 Aieme Mascorro MD [address] [place] [address] Assigned Surgical Provider 11/23/22 12/20/22 Franny Shrestha PA-C [address] [place] [address] Assigned Surgical Provider 12/21/22 05/28/24 Amanda Ibrahim MD Assigned Heart and Vascular Provider 01/18/23 01/26/24 [facility] [address] [place] [address] Assigned PCP 10/28/23 10/26/24 documented as of this encounter
--- OUTSIDE RECORDS SUMMARY | 2025-04-18 13:41 | XMS_ITS | Encounter Summary ---
Author Organization [place] Address [facility] [place] [address] Care Team Providers Care City Planning Engineer Name Role Phone Laureen Dye INFORMATION CLERK BROKERAGE LEARNING AND DEVELOPMENT ASSISTANT Unavailable [phone] Franny Shrestha PA-C Unavailable Franny Shrestha PA-C Unavailable [phone] Anyi Broderick MD Unavailable Vitaliy Solo MD Primary Care Provider Bryon Bell MD Unavailable Anyi Broderick MD Unavailable Aimee Mascorro MD Unavailable [phone] Franny Shrestha PA-C Unavailable Amanda Ibrahmi MD Unavailable Unavailabl e [facility] Unavailabl e Encounter Details Date Type Department Care Team (Late st Contact Info) Description 06/20/2022 [facility] Medical Advice [facility] [place] [address] [facility] [address] [place] [address] Laureen Dye, INFORMATION CLERK BROKERAGE LEARNING AND DEVELOPMENT ASSISTANT [address] 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 Gender Identity Male 03/03/2021 2:33 PM CDT Sexual Orientation Straight 03/03/2021 2: 33 PM CDT documented as of this encounter Plan of Treatment Not on file documented as of this encounter Visit Diagnoses Not on filedocumented in this encounter Care Teams City Planning Engineer Relationship Specialty Start Date End Date Vitaliy Solo MD [facility] [address] [place] [address] PCP - General Emergency Medicine 07/19/22 Laureen Dye, INFORMATION CLERK BROKERAGE LEARNING AND DEVELOPMENT ASSISTANT [address] [place] [address] Assigned Heart and Vascular Provider 05/27/21 01/17/23 Franny Shrestha PA-C [address] [place] [address] Physician Farm Helper Urology 10/01/21 Franny Shrestha PA-C [address] [facility] [address] [place] [address] Assigned Surgical Provider 12/29/21 11/22/22 [place] [address] [place] [address] Assigned PCP 03/23/22 06/21/22 [place] [address] [place] [address] Family Medicine 08/27/22 [place] [address] [address] Assigned PCP 08/31/22 10/27/23 Aimee Mascorro MD [address] [place] [address] Assigned Surgical Provider 11/23/22 12/20/22 Franny Shrestha PA-C [address] [place] [address] Assigned Surgical Provider 12/21/22 05/28/24 Amanda Ibrahim MD Assigned Heart and Vascular Provider 01/18/23 01/26/24 [facility] [address] [place] [address] Assigned PCP 10/28/23 10/26/24 documented as of this encounter
--- OUTSIDE RECORDS SUMMARY | 2025-04-18 13:41 | XMS_ITS | Encounter Summary ---
Author Organization [place] Address [address] [place] [address] Care Team Providers Care Gardening Manager Name Role Phone Page, Nikki Vega RN Unavailable Unavailable Bryon Bell MD Primary Care Provider [phone] Bryon Bell MD Unavailable [phone] Amanda Ibrahim MD Unavailable [facility]availabl [facility] Unavailable [phone] Franny Shrestha PA-C Unavailable [phone] Franny Shrestha PA-C Unavailable [phone] Anyi Broderick MD Unavailable Bryon Bell MD Unavailable [phone] Anyi Broderick MD Unavailable Vitaliy Solo MD Primary Care Provider Bryon Bell MD Unavailable [phone] Anyi Broderick MD Unavailable Aimee Mascorro MD Unavailable [phone] Franny Shrestha PA-C Unavailable [phone] Amanda Ibrahim MD Un[facility] Reason for Visit * Reason Onset Date Comments MyChart Communication 04/09/2021 Encounter Details Date Type Department Care Team (Late st Contact Info) Description 04/09/2021 [facility] [id number] [place] [address] [place] [address] [place], [place] [id number] MyChart Communication Social History Tobacco Use Types [...] PM CDT 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 Gender Identity Male 03/03/2021 2:33 PM [...] on filedocumented in this encounter Care Teams Gardening Manager Relationship Specialty Start Date End Date Bryon Bell MD PCP - General Family Medicine 03/06/21 05/05/22 Vitaliy Solo MD [facility] [address] [place] [address] PCP - General Emergency Medicine 07/19/22 Nikki Pierre RN Personal Advocate & Liaison (PAL) Family Medicine 03/06/21 03/25/22 [place] [address] [place] [address] Assigned PCP 03/11/21 01/18/22 Amanda Ibrahim MD Assigned Heart and Vascular Provider 04/22/21 05/26/21 Hardik Laureen BergmanGUS VEHICLE OPERATOR TECHNICIAN [address] [place] [address] Assigned Heart and Vascular Provider 05/27/21 01/17/23 Franny Shrestha PA-C [address] [place] [address] Physician Engineering Laboratory Technician Urology 10/01/21 Franny Shrestha PA-C [address] [place] [address] Assigned Surgical Provider 12/29/21 11/22/22 [place] [address] [place] [address] Assigned PCP 01/19/22 03/08/22 [place] [address] [place] [address] Assigned PCP 03/09/22 03/22/22 [place] [address] [place] [address] Assigned PCP 03/23/22 06/21/22 [place] [address] [place] [address] Family Medicine 08/27/22 [place] [address] [place] [address] Assigned PCP 08/31/22 10/27/23 Aimee Mascorro MD [address], [address] [place] [address] Assigned Surgical Provider 11/23/22 12/20/22 Franny Shrestha PA-C [address] [place] [address] Assigned Surgical Provider 12/21/22 05/28/24 Amanda Ibrahim MD Assigned Heart and Vascular Provider 01/18/23 01/26/24 [facility] [address] [place] [address] Assigned PCP 10/28/23 10/26/24 documented as of this encounter
[2025-04-18 13:43] VITALS: BP 162/90; PULSE 79; RESP 18; TEMP 36.2; O2SAT 99; BMI 24.7
--- NOTE | 2025-04-18 14:15 | CRLHL7_ITS ---
For Patients: As a result of the Century Cures Act, medical imaging exams and procedure reports are released immediately into your electronic medical record. You may view this report before your referring provider. If you have questions, please contact your health care provider. Indication: Cough Comparison: Two-view chest July 15, 2024 Technique: PA and lateral views of the chest Findings: There is hyperinflation and mild interstitial prominence without dense consolidation or effusion. The cardiac silhouette is mildly prominent. The bony thorax is grossly intact. Impression: Hyperinflation and mild interstitial prominence without dense consolidation. Dictated by Edmund White MD @ 04/18/2025 2:51:17 PM (Electronically Signed)
--- OUTSIDE RECORDS SUMMARY | 2025-04-18 14:30 | XMS_ITS | Clinical Summary ---
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 NATURAL VITAMIN D ORAL QIEUSER QIEUSER SPIRONOLACTONE 25 MG TABS Take 1 Tablet (25 mg) by mouth once daily. spironolactone 90843559162 QIEUSER QIEUSER METOPROLOL SUCCINATE ER 50 MG [id number] Take 50 mg by mouth once daily. metoprolol succinate 42614349981 QIEUSER QIEUSER LISINOPRIL 40 MG TABS Take 40 mg by mouth once daily. lisinopril 90802371159 QIEUSER QIEUSER CLOTRIMAZOLE-BETA METHASONE 1-0.05 % CREA Apply small amount to affected area(s) 2 times daily clotrimazole-bet amethasone 94433581504 QIEUSER QIEUSER ELIQUIS 5 MG TABS TAKE 1 TABLET (5 MG) BY MOUTH 2 TIMES DAILY apixaban [id number] QIEUSER QIEUSER AMIODARONE HCL 200 MG TABS Take 200 mg by mouth once daily. amiodarone 32692478350 QIEUSER QIEUSER Medications Administered No information available. Allergies, Adverse Reactions, Alerts No information available. Results Date Name Value Unit Range Flag Description Office Visit: Office Visit B rain mass MRI/CT at [facility] Recor MEDS REVIEW Done Documenta [...] Procedures Code Procedure Name Date Entry Date [id number] MRI-Brain W/WO [id number] MRA-Neck W/WO [id number]-[id number] MultiHance Gadoliniu m-based MR Contrast - 15 ml vial CPT-96098 MRA Neck W/WO CPT-96475 MRI Brain W/WO [id number] Documentation of current medicatio ns Vital Signs Date Name Value Unit Description Weight Measured 194 [lb_av] weight E& M Weight Measured 194 [lb_av] weight E& M Heart Rate 68 /min pulse rate Immunizations No information available. Advance Directives No information available.
[2025-04-18 14:57] LABS: Strep A DNA Probe* NOT DETECTED (Not Detectd)
--- NOTE | 2025-04-18 15:02 | ED.GENADULT ---
HPI - General Adult General Chief complaint: Cough Stated complaint: Cough Time Seen by Provider: 04/18/25 14:13 Source: patient Mode of arrival: ambulatory Limitations: no limitations History of Present Illness HPI narrative: Patient is an 79-year-old male presenting today with a cough. He states that he became ill about 11 days ago with upper respiratory symptoms congestion, runny nose. He then developed a cough several days later and has been coughing ever since. He thought that last night the cough was much worse and had a hard time sleeping as the cough kept him up all night. He states that today it is back to his baseline cough. He denies fevers or chills. No changes in his appetite. No diarrhea. He is not short of breath, denies chest pain. He does complain of a sore throat. has similar symptoms. Related Data Home Medications ?Medication ?Instructions ?Recorded ?Confirmed CALCIUM+D CHEW 2 tab PO DAILY 06/15/23 03/08/25 Chewable Vitamin C 3 tab PO DAILY 06/15/23 03/08/25 amiodarone 100 mg tablet 100 mg PO QDAY 01/27/25 03/08/25 Previous Rx's ?Medication ?Instructions ?Recorded apixaban 5 mg tablet (Eliquis) 5 mg PO BID #60 tabs 08/25/23 prednisone 20 mg tablet 20 mg PO BID #10 tabs 03/22/25 lisinopril 40 mg tablet 40 mg PO DAILY #90 tabs 03/25/25 Allergies Allergy/AdvReac Type Severity Reaction Status Date / Time No Known Drug Allergies Allergy Verified 03/08/25 09:53 Review of Systems Status of ROS: Reports: 10 or more systems reviewed and unremarkable except as noted in History and below [facility] Medical History Weakness ?R53.1 - Weakness (ICD-10) Lyme disease ?A69.20 - Lyme disease, unspecified (ICD-10) Sciatica ?M54.30 - Sciatica, unspecified side (ICD-10) Prediabetes ?R73.03 - Prediabetes (ICD-10) Ascending aorta dilation ?I77.810 - Thoracic aortic ectasia (ICD-10) Cardiomyopathy ?I42.9 - Cardiomyopathy, unspecified (ICD-10) Prostate enlargement ?N40.0 - Benign prostatic hyperplasia without lower urinary tract symptoms (ICD-10) Adrenal abnormality (09/21/21) ?E27.9 - Disorder of adrenal gland, unspecified (ICD-10) History of nephrolithiasis ?Z87.442 - Personal history of urinary calculi (ICD-10) PAF (paroxysmal atrial fibrillation) ?I48.0 - Paroxysmal atrial fibrillation (ICD-10) Mitral regurgitation ?I34.0 - Nonrheumatic mitral (valve) insufficiency (ICD-10) Memory loss, short term ?R41.3 - Other amnesia (ICD-10) History of elevated prostate specific antigen (PSA) ?Z87.898 - Personal history of other specified conditions (ICD-10) Hypertension ?I10 - Essential (primary) hypertension (ICD-10) Surgical History History of cardioversion ?Z92.89 - Personal history of other medical treatment (ICD-10) History of cataract surgery (2016) ?Z98.49 - Cataract extraction status, unspecified eye (ICD-10) Family History Father Coronary artery disease High cholesterol Mother Diabetes High cholesterol High blood pressure Social History What is your current living situation?: declined to answer Problems where you live: declined to answer Problems where you live details: NA In the past 12 months, utilities in danger of being shut off: declined to answer In past 12 months, lack of transportation kept you from medical appts, meetings, work, or getting things needed for daily living: unable to answer In the past 12 mos, have been you worried that your food would run out before you had money to buy more?: declined to answer In the past 12 mos, the food you bought just didn't last and you didn't have money to buy more?: declined to answer Smoking Status: Never smoker Second hand tobacco smoke exposure: No How often do you have a drink containing alcohol: 2-3 times a week How many standard drinks containing alcohol do you have on a typical day: 1 or 2 AUDIT-C Alcohol total score: 3 Non-prescribed substance use: denies use Caffeine: No How often does anyone, including family, friends and others, physically hurt you: decline to answer How often does anyone, including family, friends and others, insult or talk down to you: decline to answer How often does anyone, including family, friends and others, threaten you with harm: decline to answer How often does anyone, including family, friends and others, scream or curse at you: decline to answer service: Yes Health Related Social Needs: unsheltered homelessness (Z59.02) Exam Narrative: Exam Narrative: Well-nourished well-developed patient in no acute distress. Alert and oriented. Answers questions appropriately. Mood and affect are appropriate. Thoughts are goal oriented and rational. No tangential or magical thinking noted. Patient speaks in full sentences without needing to catch his breath. Vital signs are stable. HEENT: Normocephalic atraumatic. Pupils are equally round reactive to light. Extraocular muscles are intact. Conjunctivae are moist without any icterus noted. Moist mucous membranes. Posterior pharynx is normal. Cardiovascular: Heart is regular rate and rhythm. Lungs: Clear to auscultation bilaterally no wheezes rhonchi or rales are appreciated. Patient takes deep breaths without any discomfort. Abdomen: Soft and nontender nondistended with normal bowel sounds. Extremities: Bilateral lower extremities are without pitting edema. Skin: Well perfused. Const: Vital Signs, click to edit/add: Vital Signs - 24 hr 04/18/25 13:43 Temperature 97.2 F L Pulse Rate [Pulse Oximeter] 79 Respiratory Rate 18 Blood Pressure [Ri ght Upper Arm] 162/90 H Pulse Oximetry 99 Oxygen Delivery Me thod Room Air Course Course ED Course: Chest x-ray, read by me, does not show any acute infiltrates. Negative strep test. Triple swab is negative. CBC is normal. Vital Signs Vital signs: Initial Vital Signs Temperature 97.2 F L 04/18/25 13:43 Temperature Source Temporal Artery Scan 04/18/25 13:43 Pulse Rate 79 04/18/25 13:43 Respiratory Rate 18 04/18/25 13:43 Blood Pressure 162/90 H 04/18/25 13:43 Blood Pressure Mean 114 H 04/18/25 13:43 Blood Pressure Position Sitting 04/18/25 13:43 Pulse Oximetry 99 04/18/25 13:43 Oxygen Delivery Method Room Air 04/18/25 13:43 Vital Signs Temperature 97.2 F L 04/18/25 13:43 Pulse Rate 79 04/18/25 13:43 Respiratory Rate 18 04/18/25 13:43 Blood Pressure 162/90 H 04/18/25 13:43 Pulse Oximetry 99 04/18/25 13:43 Oxygen Delivery Method Room Air 04/18/25 13:43 Temperature 97.2 F L 04/18/25 13:43 Pulse Rate 79 04/18/25 13:43 Respiratory Rate 18 04/18/25 13:43 Blood Pressure 162/90 H 04/18/25 13:43 Pulse Oximetry 99 04/18/25 13:43 Oxygen Delivery Method Room Air 04/18/25 13:43 Medical Decision Making MDM Narrative Medical decision making narrative: 79-year-old male with a cough, likely viral in nature. We discussed symptomatic treatment and reasons for follow-up. Lab Data Lab results reviewed: Yes I reviewed the patient's lab results Labs: Lab Results 04/18/25 04/18/25 Range/Units 14:28 15:21 WBC 6.79 (4.50-11.00) K/uL RBC 4.35 (4.30-5.90) m/uL Hgb 13.2 L (13.5-17.5) gm/dL Hct 41.3 (37.0-53.0) % MCV 95 (80-100) fL MCH 30 (26-34) pg MCHC 32 (32-36) gm/dL RDW Coeff of Shivani 12.9 (11.5-15.5) % Plt Count 186 (140-440) K/uL Neut % (Auto) 68.3 (42.0-72.0) % Lymph % (Auto) 19.7 L (20-44) % Putnam % (Auto) 9.4 (0.0-11.0) % Eos % (Auto) 1.9 (0.0-7.0) % Baso % (Auto) 0.6 (0.0-3.0) % Neut # (Auto) 4.63 (1.7-7.0) K/uL Lymph # (Auto) 1.30 (0.90-2.90) K/uL Putnam # (Auto) 0.60 (0.00-0.90) K/UL Eos # (Auto) 0.13 (0.00-0.50) K/uL Baso # (Auto) 0.04 (0.00-0.30) K/uL Abs Immat Gran (auto) 0.01 (0.00-0.30) K/uL Imm/Tot Granulo (auto) 0.1 % SARS-CoV-2 (PCR) Negative SARS-CoV-2 (Negative) Influenza Type A (PCR) Negative PCR FLU A (Negative) Influenza Type B (PCR) Negative PCR FLU B (Negative) RSV (PCR) Negative PCR RSV (Negative) Group A Strep DNA NOT DETECTED (Not Detectd) Imaging Data Chest x-ray: Attestation: I have reviewed the pertinent imaging results. Radiologist's impression: Indication: Cough Comparison: Two-view chest July 15, 2024 Technique: PA and lateral views of the chest Findings: There is hyperinflation and mild interstitial prominence without dense consolidation or effusion. The cardiac silhouette is mildly prominent. The bony thorax is grossly intact. Impression: Hyperinflation and mild interstitial prominence without dense consolidation. Discharge Plan Discharge Clinical Impression: Cough Patient Disposition: Home, Self-Care Condition: Stable Additional Instructions: Your chest x-ray today did not reveal any evidence of pneumonia. Your tests for COVID, influenza and RSV were negative. Strep pharyngitis test also negative. Your complete blood cell count did not show any evidence of bacterial infection. Your cough is likely viral in nature. I would recommend returning to the emergency department if you develop fever, difficulty breathing. In the meantime there several things that you can try: Recommend cough drops, warm tea with honey. Also recommend a daily steroid nasal spray such as Flonase or Nasonex. These can be purchased [id number] at any pharmacy. When you insert then also into the nose, tilted towards the ear on that side and away from the center of the nose. This will dry out the nose which can help to decrease the cough. Prescriptions: No Action amiodarone 100 mg tablet 100 mg PO QDAY Rx Instructions: reduced to 100mg PO QD per cardiology 01/27/25 Dr. Solo has been prescribing Chewable Vitamin C 3 tab PO DAILY Rx Instructions: 3 CHEWABLE VIT C TABLETS DAILY, DOSE UNKNOW CALCIUM+D CHEW 2 tab PO DAILY Rx Instructions: CALCIUM + D - 2 CHEW TABS DAILY, DOSE UNKNOWN Eliquis 5 mg tablet 5 mg PO BID Qty: 60 2RF prednisone 20 mg tablet 20 mg PO BID Qty: 10 0RF lisinopril 40 mg tablet 40 mg PO DAILY Qty: 90 0RF Follow Up/Referrals: Vitaliy Solo MD [Primary Care Provider, Internal Medicine] Stand Alone Forms: [facility] Info Instructions
[2025-04-18 15:10] LABS: PCR FLU A Negative PCR FLU A (Negative); PCR FLU B Negative PCR FLU B (Negative); PCR RSV Negative PCR RSV (Negative); SARS PCR* Negative SARS-CoV-2 (Negative)
[2025-04-18 15:29] LABS: Hematocrit* 41.3 % (37.0-53.0); Hemoglobin* 13.2 gm/dL (13.5-17.5); Immature Granulocytes Abs Auto 0.01 K/uL (0.00-0.30); Immature Granulocytes Pct Auto 0.1 %; Mean Corpuscular HGB Conc 32 gm/dL (32-36); Mean Corpuscular Hemoglobin 30 pg (26-34); Mean Corpuscular Volume 95 fL (80-100); RDW Coefficient of Variation % 12.9 % (11.5-15.5); Red Blood Count* 4.35 m/uL (4.30-5.90); White Blood Count* 6.79 K/uL (4.50-11.00)
[2025-04-18 15:39] LABS: Lymphocytes Absolute Auto 1.30 K/uL (0.90-2.90); Slide Review Reflex No
== END 2025-04-18 16:14 | disposition home or self-care (01) ==
PROVIDERS: Emergency Provider Family Medicine; PCP Internal Medicine
DX: R05.1 Acute cough (principal)
CPT/HCPCS: 36415; 71046; 85025; 87631; 87651; 99284; 99285

== ENCOUNTER 2025-05-02 08:15 | Outpatient (CLI) | payer MEDICARE, BC, SELFPAY | END 2025-05-02 08:16 | disposition home or self-care (01) | LOC: NFLDREF 05-03 18:03 | PROVIDERS: PCP Internal Medicine; Referring Provider Internal Medicine; Visit Provider Internal Medicine | DX: E78.5 Hyperlipidemia, unspecified (principal); I10 Essential (primary) hypertension; N40.0 Benign prostatic hyperplasia without lower urinary tract symptoms | CPT/HCPCS: 80053; 80061; G0103 ==

== ENCOUNTER 2025-06-07 04:54 | Observation (INO) | payer MEDICARE, BC, SELFPAY ==
--- OUTSIDE RECORDS SUMMARY | 2024-12-13 23:26 | XMS_ITS | Continuity of Care Document ---
Author Name [facility] Organization [facility] Care Team Providers Care Crossing Supervisor Name Role Phone [facility] Unavailable Unavailable Problems Combined list of problems from Department of Defense and [facility] facilities. It does not include entries that were removed or entered in error. Problem Status Onset Date Problem Type Date of Resolution Comments Source Hearing loss Active Condition Oct 30, 2018 Entered By: ANNIE SOTOMAYOR Comment: Right ear [facility] Raised prostate specific antigen Active Condition [facility] Tinea cruris Active Condition [facility] Diagnosis: ICD-10-CM Z01.118 Encntr for exam of ears and hearing w oth abnormal findings Active Diagnosis [facility] Encounters Combined list of: 1) Encounters from Department of Veterans Affairs facilities going backup to the last 18 months, not all [place] inpatient encounters are included; 2) Encounters from the Department of [facility] facilities going backup to 280 months. Location Location Details Encounter Type Encounter Number Reason For Visit Attending Provider ADM Date DC Date Status Disposition Source [facility] Outpatient Encounter [id number] 10/07 [facility] [place] [facility] Outpatient Encounter [id number] 10/07 [facility] [place] [facility] Outpatient Encounter [id number] 01/05 [facility] [place] [facility] [place]/OP EST NOVEMBER X REQ PHY/QHP [id number] Diagnos is: ICD-10- CM Z01.118 Encntr for exam of ears and hearing w oth abnorma l finding s CRYSTAL MURRAY AEL F 01/29 [facility] [place] [facility] Outpatient Encounter [id number] 10/19 [facility] [place] [facility] Outpatient Encounter [id number] 10/20 [facility] [place] [facility] Outpatient Encounter [id number] 10/27 [place] [facility] [place] [facility] Outpatient Encounter [id number] 10/29 [facility] Social History Combined list of available smoking, tobacco, and other social history from Department of Defense and Veterans Affairs facilities. Social History Type Response Date Comment [facility] e Tobacco smoking status [facility] NEVER USED 10/21/2018 [facility]
[2025-06-07] VITALS (10 sets, daily range): BP systolic 103–141; BP diastolic 66–80; PULSE 52–97; RESP 14–20; TEMP 36.3–37.3; O2SAT 93–98; BMI 26.4; BMI 24.4; BMI 24.5
--- OUTSIDE RECORDS SUMMARY | 2025-06-07 04:56 | XMS_ITS | Encounter Summary ---
Author Organization [facility] Address [address] [place] [address] Care Team Providers Care Industrial Machinery Mechanic Name Role Phone No Ref-Primary, Physician Primary Care Provider Bryon Bell MD Unavailable [phone] Bryon Bell MD Unavailable [phone] Anyi Broderick MD Unavailable Nikki Pierre RN Unavailable Unavailable Bryon Bell MD Primary Care Provider [phone] Bryon Bell MD Unavailable [phone] Amanda Ibrahim MD Unavailable UnavailLaureen Doe APRN SCHOOL CROSSING GUARD Unavailable [phone] Franny Shrestha PA-C Unavailable [phone] Franny Shrestha PA-C Unavailable [phone] Anyi Broderick MD Unavailable Bryon Bell MD Unavailable [phone] Anyi Broderick MD Unavailable Vitaliy Solo MD Primary Care Provider Bryon Bell MD Unavailable [phone] Anyi Broderick MD Unavailable Aimee Mascorro MD Unavailable [phone] Franny Shrestha PA-C Unavailable [phone] Amanda Ibrahim MD Unavailable Unavailabl e [facility] Unavailabl e Reason for Visit * Reason Onset Date Comments MyChart Communication 08/26/2018 Encounter Details Date Type Department Care Team (Late st Contact Info) Description 08/26/2018 MyC Medical Advice [facility] [address] [place] [address] [place] [address] [place] [address] MyChart Communication Social History Tobacco Use Types Packs/Day Years Used Date Smoking Tobacco: Former Smokeless Tobacco: Never Alcohol Use Standard Drinks/Week Comments Yes 0 (1 standard drink = 0.6 oz pur e alcohol) PHQ-2 Answer Date Recorded PHQ-2 Score 0 08/21/2018 Sex and Gender Information Value Date Recorded Sex Assigned at Male 03/03/2021 2:33 PM CDT 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 Gender Identity Male 03/03/2021 2:33 PM CDT Sexual Orientation Straight 03/03/2021 2: 33 PM CDT documented as of this encounter Plan of Treatment Not on file documented as of this encounter Visit Diagnoses Not on filedocumented in this encounter Care Teams Industrial Machinery Mechanic Relationship Specialty Start Date End Date No Ref-Primary, Physician PCP - General 08/14/18 03/05/21 [place] [address] [place] [address] PCP - Assigned PCP 07/30/18 09/08/18 Bryon Bell MD PCP - General Family Medicine 03/06/21 05/05/22 Vitaliy Solo MD [facility] [address] [place] [address] PCP - General Emergency Medicine 07/19/22 [place] [address] [place] [address] Assigned PCP 07/30/18 01/18/21 [place] [address] [place] [address] Assigned PCP 01/19/21 03/10/21 Nikki Pierre RN Personal Advocate & Liaison (PAL) Family Medicine 03/06/21 03/25/22 [place] [address] [place] [address] Assigned PCP 03/11/21 01/18/22 Amanda Ibrahim MD Assigned Heart and Vascular Provider 04/22/21 05/26/21 Laureen Dye, GUS SCHOOL CROSSING GUARD [address] [place] [address] Assigned Heart and Vascular Provider 05/27/21 01/17/23 Franny Shrestha PA-C [address] [place] [address] Physician Body Care Manager Urology 10/01/21 Franny Shrestha PA-C [address] [place] [address] Assigned Surgical Provider 12/29/21 11/22/22 [place] [address] [place] [address] Assigned PCP 01/19/22 03/08/22 [place] [address] [place] [address] Assigned PCP 03/09/22 03/22/22 [place] [address] [place] [address] Assigned PCP 03/23/22 06/21/22 [place] [address] [place] [address] Family Medicine 08/27/22 [place] [address] [place] [address] Assigned PCP 08/31/22 10/27/23 Aimee Mascorro MD [address] [place] [address] Assigned Surgical Provider 11/23/22 12/20/22 Franny Shrestha PA-C [address] [place] [address] Assigned Surgical Provider 12/21/22 05/28/24 Amanda Ibrahim MD Assigned Heart and Vascular Provider 01/18/23 01/26/24 [facility] [address] [place] [address] Assigned PCP 10/28/23 10/26/24 documented as of this encounter
--- OUTSIDE RECORDS SUMMARY | 2025-06-07 04:56 | XMS_ITS | Encounter Summary ---
Author Organization [place] Address [address] [place] [address] Care Team Providers Care Director Of Occupational Health Name Role Phone Laureen Dye APRN MECHANISM ASSEMBLER Unavailable [phone] Franny Shrestha PA-C Unavailable [phone] Franny Shrestha PA-C Unavailable [phone] Vitaliy Solo MD Primary Care Provider Bryon Bell MD Unavailable Anyi Broderick MD Unavailable Aimee Mascorro MD Unavailable [phone] Franny Shrestha PA-C Unavailable Amanda Ibrahim MD Unavailable Unavailabl e [facility] Unavailabl e Encounter Details Date Type Department Care Team (Late st Contact Info) Description 09/15/2022 MyC Medical Advice [facility] [address] [place] [phone] Amanda Ibrahim MD Social History Tobacco Use Types Packs/Day Years Used Date Smoking Tobacco: Never Smokeless Tobacco: Never Alcohol Use Standard Drinks/Week Comments Yes 0 (1 standard drink = 0.6 oz pur e alcohol) occ PHQ-2 Answer Date Recorded PHQ-2 Score 0 12/24/2021 Sex and Gender Information Value Date Recorded Sex Assigned at Male 03/03/2021 2:33 PM CDT 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 SERVICE DIRECTOR Gender Identity Male 03/03/2021 2:33 PM CDT Sexual Orientation Straight 03/03/2021 2: 33 PM CDT COVID-19 Exposure Response Date Recorded In the last 10 days, have yo u been in contact with someone who was confirmed or suspected to have Coronavirus/COVID-19? Unable to assess 08/27/2022 1:55 PM SERVICE DIRECTOR documented as of this encounter Plan of Treatment Not on file documented as of this encounter Visit Diagnoses Not on filedocumented in this encounter Care Teams Director Of Occupational Health Relationship Specialty Start Date End Date Vitaliy Solo MD [facility] [address] [place] [address] PCP - General Emergency Medicine 07/19/22 Laureen Dye, LEARNING AND DEVELOPMENT ASSISTANT MECHANISM ASSEMBLER [address] [place] [address] Assigned Heart and Vascular Provider 05/27/21 01/17/23 Franny Shrestha PA-C [address] [place] [address] Physician Redipper Urology 10/01/21 Franny Shrestha PA-C [address] [place] [address] Assigned Surgical Provider 12/29/21 11/22/22 [place] [address] [place] [address] Family Medicine 08/27/22 [place] [address] [place] [address] Assigned PCP 08/31/22 10/27/23 Aimee Mascorro MD [address] [place] [address] Assigned Surgical Provider 11/23/22 12/20/22 Franny Shrestha PA-C [address] [place] [address] Assigned Surgical Provider 12/21/22 05/28/24 Amanda Ibrahim MD Assigned Heart and Vascular Provider 01/18/23 01/26/24 [facility] [address] [place] [address] Assigned PCP 10/28/23 10/26/24 documented as of this encounter
--- OUTSIDE RECORDS SUMMARY | 2025-06-07 04:56 | XMS_ITS | Encounter Summary ---
Author Organization [place] Address [address] [place] [address] Care Team Providers Care Hand Ii Tube Bender Name Role Phone Page, Nikki Vega RN Unavailable Unavailable Bryon Bell MD Primary Care Provider + [phone] Bryon Bell MD Unavailable [phone] Laureen Dye APRN ENVIRONMENTAL REMEDIATION SPECIALIST Unavailable [phone] Franny Shrestha PA-C Unavailable Franny Shrestha PA-C Unavailable Anyi Broderick MD Unavailable Bryon Bell MD Unavailable [phone] Anyi Broderick MD Unavailable Vitaliy Solo MD Primary Care Provider Bryon Bell MD Unavailable [phone] Anyi Broderick MD Unavailable Aimee Mascorro MD Unavailable [phone] Franny Shrestha PA-C Unavailable [phone] Amanda Ibrahim MD Un[facility] Unavailabl e Encounter Details Date Type Department Care Team (Late st Contact Info) Description 09/11/2021 MyC Medical Advice [facility] [address] [place] [address] Nikki Pierre RN Social History Tobacco Use [...] CDT 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 No / Unsure 09/13/2021 3:04 PM SECURITY PROFESSIONAL documented as of this encounter Plan of Treatment Not on file documented as of this encounter Visit Diagnoses Not on filedocumented in this encounter Care Teams Hand Ii Tube Bender Relationship Specialty Start Date End Date Bryon Bell MD PCP - General Family Medicine 03/06/21 05/05/22 Vitaliy Solo MD [facility] [address] [place] [address] PCP - General Emergency Medicine 07/19/22 Nikki Pierre RN Personal Advocate & Liaison (PAL) Family Medicine 03/06/21 03/25/22 [place] [address] [place] [address] Assigned PCP 03/11/21 01/18/22 Laureen Dye APRN ENVIRONMENTAL REMEDIATION SPECIALIST [address] [place] [address] Assigned Heart and Vascular Provider 05/27/21 01/17/23 Franny Shrestha PA-C [address] [place] [address] Physician Blanket Folder Urology 10/01/21 Franny Shrestha PA-C [address] [place] [address] Assigned Surgical Provider 12/29/21 11/22/22 [place] [address] [place] [address] Assigned PCP 01/19/22 03/08/22 [place] [address] [place] [address] Assigned PCP 03/09/22 03/22/22 [place] [address] [place] [address] Assigned PCP 03/23/22 06/21/22 [place] [address] [place] [address] Family Medicine 08/27/22 [place] [address] [place] [address] Assigned PCP 08/31/22 10/27/23 Aimee Mascorro MD [address] [place] [address] Assigned Surgical Provider 11/23/22 12/20/22 Franny Shrestha PA-C [address] [place] [address] Assigned Surgical Provider 12/21/22 05/28/24 Amanda Ibrahim MD Assigned Heart and Vascular Provider 01/18/23 01/26/24 [facility] [address] [place] [address] Assigned PCP 10/28/23 10/26/24 documented as of this encounter
--- OUTSIDE RECORDS SUMMARY | 2025-06-07 04:56 | XMS_ITS | Encounter Summary ---
Author Organization [place] Address [address] [place] [address] Care Team Providers Care Stage Director Name Role Phone Page, Nikki Vega RN Unavailable Unavailable Bryon Bell MD Primary Care Provider + [phone] Bryon Bell MD Unavailable [phone] Amanda Ibrahim MD Unavailable Unavailabl [facility] Unavailable [phone] Franny Shrestha PA-C Unavailable [phone] Franny Shrestha PA-C Unavailable [phone] Anyi Broderick MD Unavailable Bryon Bell MD Unavailable [phone] Anyi Broderick MD Unavailable Vitaliy Solo MD Primary Care Provider Bryon Bell MD Unavailable [phone] Anyi Broderick MD Unavailable Aimee Mascorro MD Unavailable [phone] Franny Shrestha PA-C Unavailable [phone] Amanda Ibrahim MD Un[facility] Reason for Visit * Reason Onset Date Comments Outreach 05/14/2021 PAL Encounter Details Date Type Department Care Team (Late st Contact Info) Description 05/14/[address] 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 Gender Identity Male 03/03/2021 2:33 PM CDT [...] on filedocumented in this encounter Care Teams Stage Director Relationship Specialty Start Date End Date Bryon Bell MD PCP - General Family Medicine 03/06/21 05/05/22 Vitaliy Solo MD [facility] [address] [place] [address] PCP - General Emergency Medicine 07/19/22 Nikki Pierre, SHERMAN Personal Advocate & Liaison (PAL) Family Medicine 03/06/21 03/25/22 [place] [address] [place] [address] Assigned PCP 03/11/21 01/18/22 Amanda Ibrahim MD Assigned Heart and Vascular Provider 04/22/21 05/26/21 Laureen Dye, CONSTRUCTION PLUMBER FUEL MANAGER [address] [place] [address] Assigned Heart and Vascular Provider 05/27/21 01/17/23 Franny Shrestha PA-C [address] [place] [address] Physician Sash Maker Urology 10/01/21 Franny Shrestha PA-C [address] [place] [address] Assigned Surgical Provider 12/29/21 11/22/22 [place] [address] [place] [address] Assigned PCP 01/19/22 03/08/22 [place] [address] [place] [address] Assigned PCP 03/09/22 03/22/22 [place] [address] [place] [address] Assigned PCP 03/23/22 06/21/22 [place] [address] [place] [address] Family Medicine 08/27/22 [place] [address] [place] [address] Assigned PCP 08/31/22 10/27/23 Aimee Mascorro MD [address] [place] [address] Assigned Surgical Provider 11/23/22 12/20/22 Franny Shrestha PA-C [address] [place] [address] Assigned Surgical Provider 12/21/22 05/28/24 Amanda Ibrahim MD Assigned Heart and Vascular Provider 01/18/23 01/26/24 [facility] [address] [place] [address] Assigned PCP 10/28/23 10/26/24 documented as of this encounter
--- OUTSIDE RECORDS SUMMARY | 2025-06-07 04:56 | XMS_ITS | Encounter Summary ---
Author Organization [place] Address [address] [place] [address] Care Team Providers Care Pet Ambassador Name Role Phone Page, Nikki Vega RN Unavailable Unavailable Bryon Bell MD Primary Care Provider + [phone] Bryon Bell MD Unavailable [phone] Amanda Ibrahim MD Unavailable Unavailabl Laureen Dye APRN [facility] Unavailable [phone] Franny Shrestha PA-C Unavailable [phone] Franny Shrestha PA-C Unavailable [phone] Anyi Broderick MD Unavailable Bryon Bell MD Unavailable [phone] Anyi Broderick MD Unavailable Vitaliy Solo MD Primary Care Provider Bryon Bell MD Unavailable [phone] Anyi Broderick MD Unavailable Aimee Mascorro MD Unavailable [phone] Franny Shrestha PA-C Unavailable [phone] Amanda Ibrahim MD Un[facility] Encounter Details Date Type Department Care Team (Late st Contact Info) Description 04/19/2021 [facility] Medical Advice [facility] [address] [facility] [address] [place] [address] Amanda Ibrahim MD Social History Tobacco [...] PM CDT 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 Gender Identity Male 03/03/2021 2:33 [...] on filedocumented in this encounter Care Teams Pet Ambassador Relationship Specialty Start Date End Date Bryon Bell MD PCP - General Family Medicine 03/06/21 05/05/22 Vitaliy Solo MD [facility] [address] [place] [address] PCP - General Emergency Medicine 07/19/22 Nikki Pierre, RN Personal Advocate & Liaison (PAL) Family Medicine 03/06/21 03/25/22 [place] [address] [place] [address] Assigned PCP 03/11/21 01/18/22 Amanda Ibrahim MD Assigned Heart and Vascular Provider 04/22/21 05/26/21 Hardik Laureen GUS Bergman DRY CHARGE PROCESS ATTENDANT [address] [place] [address] Assigned Heart and Vascular Provider 05/27/21 01/17/23 Franny Shrestha PA-C [address] [place] [address] Physician Mail Manager Urology 10/01/21 Franny Shrestha PA-C [address] [place] [address] Assigned Surgical Provider 12/29/21 11/22/22 [place] [address] [place] [address] Assigned PCP 01/19/22 03/08/22 [place] [address] [place] [address] Assigned PCP 03/09/22 03/22/22 [place] [address] [place] [address] Assigned PCP 03/23/22 06/21/22 [place] [address] [place] [address] Family Medicine 08/27/22 [place] [address] [place] [address] Assigned PCP 08/31/22 10/27/23 Aimee Mascorro MD [address] [place] [address] Assigned Surgical Provider 11/23/22 12/20/22 Franny Shrestha PA-C [address] [place] [address] Assigned Surgical Provider 12/21/22 05/28/24 Amanda Ibrahim MD Assigned Heart and Vascular Provider 01/18/23 01/26/24 [facility] [address] [place] [address] Assigned PCP 10/28/23 10/26/24 documented as of this encounter
--- OUTSIDE RECORDS SUMMARY | 2025-06-07 04:56 | XMS_ITS | Encounter Summary ---
Author Organization [place] Address [address] [place] [address] Care Team Providers Care Residential Mortgage Underwriter Name Role Phone Franny Shrestha PA-C Unavailable [phone] Vitaliy Solo MD Primary Care Provider Bryon Bell MD Unavailable [phone] Anyi Broderick MD Unavailable Franny Shrestha PA-C Unavailable [phone] Amanda Ibrahim MD Unavailable Unavailabl e [facility] Unavailabl e Encounter Details Date Type Department Care Team (Late st Contact Info) Description 09/30/[address] 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 Gender Identity Male 03/03/2021 2:33 PM CDT Sexual Orientation Straight 03/03/2021 2: 33 PM CDT documented as of this encounter Plan of Treatment Not on file documented as of this encounter Visit Diagnoses Not on filedocumented in this encounter Care Teams Residential Mortgage Underwriter Relationship Specialty Start Date End Date Vitaliy Solo MD [facility] [address] [place] [address] PCP - General Emergency Medicine 07/19/22 Franny Shrestha PA-C [address] [place] [address] Physician Section Chief Urology 10/01/21 [place] [address] [facility] [place] [address] Family Medicine 08/27/22 [place] [address] [place] [address] Assigned PCP 08/31/22 10/27/23 Franny Shrestha PA-C [address] [place] [address] Assigned Surgical Provider 12/21/22 05/28/24 Amanda Ibrahim MD Assigned Heart and Vascular Provider 01/18/23 01/26/24 [facility] [address] [place] [address] Assigned PCP 10/28/23 10/26/24 documented as of this encounter
--- OUTSIDE RECORDS SUMMARY | 2025-06-07 04:56 | XMS_ITS | Encounter Summary ---
Author Organization [place] Address [address] [place] [address] Care Team Providers Care Rn X Ray Name Role Phone Page, Nikki Vega RN Unavailable Unavailable Bryon Bell MD Primary Care Provider + [phone] Bryon Bell MD Unavailable [phone] Amanda Ibrahim MD Unavailable Unavailabl Laureen Dye APRN [facility] Unavailable [phone] Franny Shrestha PA-C Unavailable [phone] Franny Shrestha PA-C Unavailable [phone] Anyi Broderick MD Unavailable Bryon Bell MD Unavailable [phone] Anyi Broderick MD Unavailable Vitaliy Solo MD Primary Care Provider Bryon Bell MD Unavailable [phone] Anyi Broderick MD Unavailable Aimee Mascorro MD Unavailable [phone] Franny Shrestha PA-C Unavailable [phone] Amanda Ibrahim MD Un[facility] Encounter Details Date Type Department Care Team (Late st Contact Info) Description 05/03/2021 [facility] Medical Advice [facility] [address] [facility] [address] [place] [address] Amanda Ibrahim MD Social History Tobacco [...] PM CDT 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 Gender Identity Male 03/03/2021 2:33 PM CDT [...] filedocumented in this encounter Care Teams Rn X Ray Relationship Specialty Start Date End Date Bryon Bell MD PCP - General Family Medicine 03/06/21 05/05/22 Vitaliy Solo MD [facility] [address] [place] [address] PCP - General Emergency Medicine 07/19/22 Nikki Pierre, RN Personal Advocate & Liaison (PAL) Family Medicine 03/06/21 03/25/22 [place] [address] [place] [address] Assigned PCP 03/11/21 01/18/22 Amanda Ibrahim MD Assigned Heart and Vascular Provider 04/22/21 05/26/21 Hardik Laureen GUS Bergman OPEN HEARTH HELPER [address] [place] [address] Assigned Heart and Vascular Provider 05/27/21 01/17/23 Franny Shrestha PA-C [address] [place] [address] Physician Roving Sizer Urology 10/01/21 Franny Shrestha PA-C [address] [place] [address] Assigned Surgical Provider 12/29/21 11/22/22 [place] [address] [place] [address] Assigned PCP 01/19/22 03/08/22 [place] [address] [place] [address] Assigned PCP 03/09/22 03/22/22 [place] [address] [place] [address] Assigned PCP 03/23/22 06/21/22 [place] [address] [place] [address] Family Medicine 08/27/22 [place] [address] [place] [address] Assigned PCP 08/31/22 10/27/23 Aimee Mascorro MD [address] [place] [address] Assigned Surgical Provider 11/23/22 12/20/22 Franny Shrestha PA-C [address] [place] [address] Assigned Surgical Provider 12/21/22 05/28/24 Amanda Ibrahim MD Assigned Heart and Vascular Provider 01/18/23 01/26/24 [facility] [address] [place] [address] Assigned PCP 10/28/23 10/26/24 documented as of this encounter
--- OUTSIDE RECORDS SUMMARY | 2025-06-07 04:56 | XMS_ITS | Encounter Summary ---
Author Organization [place] Address [address] [place] [address] Care Team Providers Care Neonatal Doctor Name Role Phone Page, Nikki Vega RN Unavailable Unavailable Bryon Bell MD Primary Care Provider [phone] Bryon Bell MD Unavailable [phone] Laureen Dye APRN LEAD PRINTER Unavailable [phone] Franny Shrestha PA-C Unavailable Franny Shrestha PA-C Unavailable Anyi Broderick MD Unavailable Bryon Bell MD Unavailable Anyi Broderick MD Unavailable Vitaliy Solo MD Primary Care Provider Bryon Bell MD Unavailable [phone] Anyi Broderick MD Unavailable Aimee Mascorro MD Unavailable [phone] Franny Shrestha PA-C Unavailable Amanda Ibrahim MD [facility] Unavailabl e Reason for Visit * Reason Onset Date Comments MyChart Communication 10/01/2021 KRAIG daley ch - results Encounter Details Date Type Department Care Team (Latest Contact Info) Description 10/01/2021 MyC Medical Advice [facility] [address] [place] [phone] Nikki Pierre RN MyChart Communication (PAL [...] PM CDT 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 Letter sent- [facility] will monitor for f/u Nikki Pierre RN * Telephone Encounter - Nikki Pierre RN - 10/05/2021 12:18 PM CDT LM for call back - See below Nikki Pierre RN documented in this encounter Plan of Treatment Not on file documented as of this encounter Visit Diagnoses Not on filedocumented in this encounter Care Teams Neonatal Doctor Relationship Specialty Start Date End Date Bryon Bell MD PCP - General Family Medicine 03/06/21 05/05/22 Vitaliy Solo MD [facility] [address] [place] [address] PCP - General Emergency Medicine 07/19/22 Nikki Pierre, RN Personal Advocate & Liaison (PAL) Family Medicine 03/06/21 03/25/22 [place] [address] [place] [address] Assigned PCP 03/11/21 01/18/22 Laureen Dye APRN LEAD PRINTER [address] [place] [address] Assigned Heart and Vascular Provider 05/27/21 01/17/23 Franny Shrestha PA-C [address] [place] [address] Physician Drawer Maker Urology 10/01/21 Franny Shrestha PA-C [address] [place] [address] Assigned Surgical Provider 12/29/21 11/22/22 [place] [address] [place] [address] Assigned PCP 01/19/22 03/08/22 [place] [address] [place] [address] Assigned PCP 03/09/22 03/22/22 [place] [address] [address] [address] Assigned PCP 03/23/22 06/21/22 [place] [address] [place] [address] Family Medicine 08/27/22 [place] [address] [place] [address] Assigned PCP 08/31/22 10/27/23 Aimee Mascorro MD [address] [place] [address] Assigned Surgical Provider 11/23/22 12/20/22 Franny Shrestha PA-C [address] [place] [address] Assigned Surgical Provider 12/21/22 05/28/24 Amanda Ibrahim MD Assigned Heart and Vascular Provider 01/18/23 01/26/24 [facility] [address] [place] [address] Assigned PCP 10/28/23 10/26/24 documented as of this encounter
--- OUTSIDE RECORDS SUMMARY | 2025-06-07 04:56 | XMS_ITS | Encounter Summary ---
Author Organization [place] Address [address] [place] [address] Care Team Providers Care Channel Lip Wetter Name Role Phone Page, Nikki Vega RN Unavailable Unavailable Bryon Bell MD Primary Care Provider + [phone] Bryon Bell MD Unavailable [phone] Amanda Ibrahim MD Unavailable Unavailabl Laureen Dye APRN [facility] Unavailable [phone] Franny Shrestha PA-C Unavailable [phone] Franny Shrestha PA-C Unavailable [phone] Anyi Broderick MD Unavailable Bryon Bell MD Unavailable [phone] Anyi Broderick MD Unavailable Vitaliy Solo MD Primary Care Provider Bryon Bell MD Unavailable Anyi Broderick MD Unavailable Aimee Mascorro MD Unavailable Franny Shrestha PA-C Unavailable [phone] Amanda Ibrahim MD Un[facility] Encounter Details Date Type Department Care Team (Late st Contact Info) Description 04/19/2021 [facility] Medical Advice 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 Gender Identity Male 03/03/2021 2:33 PM [...] on filedocumented in this encounter Care Teams Channel Lip Wetter Relationship Specialty Start Date End Date Bryon Bell MD PCP - General Family Medicine 03/06/21 05/05/22 Vitaliy Solo MD [facility] [address] [place] [address] PCP - General Emergency Medicine 07/19/22 Nikki Pierre, RN Personal Advocate & Liaison (PAL) Family Medicine 03/06/21 03/25/22 [place] [address] [place] [address] Assigned PCP 03/11/21 01/18/22 Amanda Ibrahim MD Assigned Heart and Vascular Provider 04/22/21 05/26/21 Hardik Laureen GUS Bergman SENIOR LABORATORY TECHNICIAN [address] [place] [address] Assigned Heart and Vascular Provider 05/27/21 01/17/23 Franny Shrestha PA-C [address] [place] [address] Physician Guide Domestic Tour Urology 10/01/21 Franny Shrestha PA-C [address] [place] [address] Assigned Surgical Provider 12/29/21 11/22/22 [place] [address] [place] [address] Assigned PCP 01/19/22 03/08/22 [place] [address] [place] [address] Assigned PCP 03/09/22 03/22/22 [place] [address] [place] [address] Assigned PCP 03/23/22 06/21/22 [place] [address] [place] [address] Family Medicine 08/27/22 [place] [address] [place] [address] Assigned PCP 08/31/22 10/27/23 Aimee Mascorro MD [address] [place] [address] Assigned Surgical Provider 11/23/22 12/20/22 Franny Shrestha PA-C [address] [place] [address] Assigned Surgical Provider 12/21/22 05/28/24 Amanda Ibrahim MD Assigned Heart and Vascular Provider 01/18/23 01/26/24 [facility] [address] [place] [address] Assigned PCP 10/28/23 10/26/24 documented as of this encounter
--- OUTSIDE RECORDS SUMMARY | 2025-06-07 04:56 | XMS_ITS | Encounter Summary ---
Author Organization [place] Address [address] [place] [address] Care Team Providers Care Inspector Wreath Name Role Phone Page, Nikki Vega RN Unavailable Unavailable Bryon Bell MD Primary Care Provider + [phone] Bryon Bell MD Unavailable [phone] Laureen Dye APRN PERSONAL CLOTHING LAUNDRY AIDE Unavailable [phone] Franny Shrestha PA-C Unavailable Franny Shrestha PA-C Unavailable Anyi Broderick MD Unavailable Bryon Bell MD Unavailable [phone] Anyi Broderick MD Unavailable Vitaliy Solo MD Primary Care Provider Bryon Bell MD Unavailable [phone] Anyi Broderick MD Unavailable Aimee Mascorro MD Unavailable [phone] Franny Shrestha PA-C Unavailable [phone] Amanda Ibrahim MD Un[facility] Unavailabl e Encounter Details Date Type Department Care Team (Late st Contact Info) Description 08/29/2021 [facility] Medical Advice [facility] [address] [place] [phone] Nikki Pierre, RN Social History Tobacco Use [...] PM CDT 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 No / Unsure 08/29/2021 9:40 AM UNHAIRER documented as of this encounter Plan of Treatment Not on file documented as of this encounter Visit Diagnoses Not on filedocumented in this encounter Care Teams Inspector Wreath Relationship Specialty Start Date End Date Bryon Bell MD PCP - General Family Medicine 03/06/21 05/05/22 Vitaliy Solo MD [facility] [address] [place] [address] PCP - General Emergency Medicine 07/19/22 Nikki Pierre, RN Personal Advocate & Liaison (PAL) Family Medicine 03/06/21 03/25/22 [place] [address] [place] [address] Assigned PCP 03/11/21 01/18/22 Laureen Dey, HVAC PROJECT MANAGER PERSONAL CLOTHING LAUNDRY AIDE [address] [place] [address] Assigned Heart and Vascular Provider 05/27/21 01/17/23 Franny Shrestha PA-C [address] [place] [address] Physician Brusher Hand Urology 10/01/21 Franny Shrestha PA-C [address] [place] [address] Assigned Surgical Provider 12/29/21 11/22/22 [place] [address] [place] [address] Assigned PCP 01/19/22 03/08/22 [place] [address] [place] [address] Assigned PCP 03/09/22 03/22/22 [place] [address] [place] [address] Assigned PCP 03/23/22 06/21/22 [place] [address] [place] [address] Family Medicine 08/27/22 [place] [address] [place] [address] Assigned PCP 08/31/22 10/27/23 Aimee Mascorro MD [address], [address] [place] [address] Assigned Surgical Provider 11/23/22 12/20/22 Franny Shrestha PA-C [address] [place] [address] Assigned Surgical Provider 12/21/22 05/28/24 Amanda Ibrahim MD Assigned Heart and Vascular Provider 01/18/23 01/26/24 [facility] [address] [place] [address] Assigned PCP 10/28/23 10/26/24 documented as of this encounter
--- OUTSIDE RECORDS SUMMARY | 2025-06-07 04:56 | XMS_ITS | Encounter Summary ---
Author Organization [place] Address [address] [place] [address] Care Team Providers Care Med Surg Rn Name Role Phone Laureen Dye APRN CLAMSHELL OPERATOR Unavailable [phone] Franny Shrestha PA-C Unavailable Franny Shrestha PA-C Unavailable Vitaliy Solo MD Primary Care Provider Bryon Bell MD Unavailable Anyi Broderick MD Unavailable Aimee Mascorro MD Unavailable Franny Shrestha PA-C Unavailable Amanda Ibrahim MD Unavailable Unavailabl e [facility] Unavailabl e Encounter Details Date Type Department Care Team (Late st Contact Info) Description 08/09/2022 MyC Medical Advice [facility] [address] [place] [address] Josie Rosa, RN Social History [...] PM CDT 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 No / Unsure 08/01/2022 11:05 AM SURGICAL INSTRUMENT REPAIR SPECIALIST documented as of this encounter Plan of Treatment Not on file documented as of this encounter Visit Diagnoses Not on filedocumented in this encounter Care Teams Med Surg Rn Relationship Specialty Start Date End Date Vitaliy Solo MD [facility] [address] [place] [address] PCP - General Emergency Medicine 07/19/22 Laureen Dye, MUSEUM PREPARATOR CLAMSHELL OPERATOR [address] [place] [address] Assigned Heart and Vascular Provider 05/27/21 01/17/23 Franny Shrestha PA-C [address] [place] [address] Physician Dials Inspector Urology 10/01/21 Franny Shrestha PA-C [address] [place] [address] Assigned Surgical Provider 12/29/21 11/22/22 [place] [address] [place] [address] Family Medicine 08/27/22 [place] [address] [place] [address] Assigned PCP 08/31/22 10/27/23 Aimee Mascorro MD [address], [address] [place] [address] Assigned Surgical Provider 11/23/22 12/20/22 Franny Shrestha PA-C [address] [place] [address] Assigned Surgical Provider 12/21/22 05/28/24 Amanda Ibrahim MD Assigned Heart and Vascular Provider 01/18/23 01/26/24 [facility] [address] [place] [address] Assigned PCP 10/28/23 10/26/24 documented as of this encounter
--- OUTSIDE RECORDS SUMMARY | 2025-06-07 04:56 | XMS_ITS | Encounter Summary ---
Author Organization [place] Address [address] [place] [address] Care Team Providers Care Mechanical Technologist Name Role Phone Page, Nikki Vega RN Unavailable Unavailable Bryon Bell MD Primary Care Provider + [phone] Bryon Bell MD Unavailable [phone] Laureen Dye APRN CHILD LIFE THERAPIST Unavailable [phone] Franny Shrestha PA-C Unavailable Franny Shrestha PA-C Unavailable [phone] Anyi Broderick MD Unavailable Bryon Bell MD Unavailable [phone] Anyi Broderick MD Unavailable Vitaliy Solo MD Primary Care Provider Bryon Bell MD Unavailable [phone] Anyi Broderick MD Unavailable Aimee Mascorro MD Unavailable [phone] Franny Shrestha PA-C Unavailable [phone] Amanda Ibrahim MD Unavailable [facility] Unavailabl e Encounter Details Date Type Department Care Team (Late st Contact Info) Description 09/27/2021 MyC Medical Advice [facility] [address] [place] [address] [place] [address] [facility] [place] [address] Social History Tobacco Use Types Packs/Day Years Used Date Smoking Tobacco: Never Smokeless Tobacco: Never Alcohol Use Standard Drinks/Week Comments Yes 0 (1 standard drink = 0.6 oz pur e alcohol) occ PHQ-2 Answer Date Recorded PHQ-2 Score 0 09/06/2021 Sex and Gender Information Value Date Recorded Sex Assigned at Male 03/03/2021 2:33 PM CDT 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 Gender Identity Male 03/03/2021 2:33 PM [...] on filedocumented in this encounter Care Teams Mechanical Technologist Relationship Specialty Start Date End Date Bryon Bell MD PCP - General Family Medicine 03/06/21 05/05/22 Vitaliy Solo MD [facility] [address] [place] [address] PCP - General Emergency Medicine 07/19/22 Nikki Pierre, SHERMAN Personal Advocate & Liaison (PAL) Family Medicine 03/06/21 03/25/22 [place] [address] [place] [address] Assigned PCP 03/11/21 01/18/22 Laureen Dye APRN CHILD LIFE THERAPIST [address] [place] [address] Assigned Heart and Vascular Provider 05/27/21 01/17/23 Franny Shrestha PA-C [address] [place] [address] Physician Frontload Driver Urology 10/01/21 Franny Shrestha PA-C [address] [place] [address] Assigned Surgical Provider 12/29/21 11/22/22 [place] [address] [place] [address] Assigned PCP 01/19/22 03/08/22 [place] [address] [place] [address] Assigned PCP 03/09/22 03/22/22 [place] [address] [place] [address] Assigned PCP 03/23/22 06/21/22 [place] [address] [place] [address] Family Medicine 08/27/22 [place] [address] [place] [address] Assigned PCP 08/31/22 10/27/23 Aimee Mascorro MD [address], [address] [place] [address] Assigned Surgical Provider 11/23/22 12/20/22 Franny Shrestha PA-C [address] [place] [address] Assigned Surgical Provider 12/21/22 05/28/24 Amanda Ibrahim MD Assigned Heart and Vascular Provider 01/18/23 01/26/24 [facility] [address] [place] [address] Assigned PCP 10/28/23 10/26/24 documented as of this encounter
--- OUTSIDE RECORDS SUMMARY | 2025-06-07 04:56 | XMS_ITS | Encounter Summary ---
Author Organization [place] Address [address] [place] [address] Care Team Providers Care Motor Mechanic Name Role Phone Page, Nikki Vega RN Unavailable Unavailable Bryon Bell MD Primary Care Provider [phone] Bryon Bell MD Unavailable [phone] Laureen Dye APRN RESISTOR WINDER Unavailable [phone] Franny Shrestha PA-C Unavailable [phone] Franny Shrestha PA-C Unavailable [phone] Anyi Broderick MD Unavailable Bryon Bell MD Unavailable Anyi Broderick MD Unavailable Vitaliy Solo MD Primary Care Provider Bryon Bell MD Unavailable [phone] Anyi Broderick MD Unavailable Aimee Mascorro MD Unavailable [phone] Franny Shrestha PA-C Unavailable Amanda Ibrahim MD 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 No / Unsure 06/08/2021 1:05 PM CHILDCARE PROVIDER documented as of this encounter Plan of Treatment Not on file documented as of this encounter Visit Diagnoses Not on filedocumented in this encounter Care Teams Motor Mechanic Relationship Specialty Start Date End Date Bryon Bell MD PCP - General Family Medicine 03/06/21 05/05/22 Vitaliy Solo MD [facility] [address] [place] [address] PCP - General Emergency Medicine 07/19/22 Nikki Pierre, SHERMAN Personal Advocate & Liaison (PAL) Family Medicine 03/06/21 03/25/22 [place] [address] [place] [address] Assigned PCP 03/11/21 01/18/22 Laureen Dye APRN RESISTOR WINDER [address] [place] [address] Assigned Heart and Vascular Provider 05/27/21 01/17/23 Franny Shrestha PA-C [address] [place] [address] Physician Recreation Superintendent Urology 10/01/21 Franny Shrestha PA-C [address] [place] [address] Assigned Surgical Provider 12/29/21 11/22/22 [place] [address] [place] [address] Assigned PCP 01/19/22 03/08/22 [place] [address] [place] [address] Assigned PCP 03/09/22 03/22/22 [place] [address] [place] [address] Assigned PCP 03/23/22 06/21/22 [place] [address] [place] [address] Family Medicine 08/27/22 [place] [address] [place] [address] Assigned PCP 08/31/22 10/27/23 Aimee Mascorro MD [address], [address] [place] [address] Assigned Surgical Provider 11/23/22 12/20/22 Franny Shrestha PA-C [address] [place] [address] Assigned Surgical Provider 12/21/22 05/28/24 Amanda Ibrahim MD Assigned Heart and Vascular Provider 01/18/23 01/26/24 [facility] [address] [place] [address] Assigned PCP 10/28/23 10/26/24 documented as of this encounter
--- OUTSIDE RECORDS SUMMARY | 2025-06-07 04:56 | XMS_ITS | Encounter Summary ---
Author Organization [place] Address [address] [place] [address] Care Team Providers Care Environmental Health Technician Name Role Phone Franny Shrestha PA-C Unavailable [phone] Vitaliy Solo MD Primary Care Provider Bryon Bell MD Unavailable [phone] Franny Shrestha PA-C Unavailable [phone] Amanda Ibrahim MD Unavailable Unavailabl e [facility] Unavailabl e Encounter Details Date Type Department Care Team (Late st Contact Info) Description 11/13/2023 MyC Medical Advice [facility] [address] [place] [phone] Yajaira Cedeño, COMPENSATION COORDINATOR Social History Tobacco Use Types Packs/Day Years [...] PM CDT 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 Gender Identity Male 03/03/2021 2:33 PM CDT Sexual Orientation Straight 03/03/2021 2: 33 PM CDT documented as of this encounter Plan of Treatment Not on file documented as of this encounter Visit Diagnoses Not on filedocumented in this encounter Care Teams Environmental Health Technician Relationship Specialty Start Date End Date Vitaliy Solo MD [facility] [address] [place] [address] PCP - General Emergency Medicine 07/19/22 Franny Shrestha PA-C [address] [facility] [address] [place] [address] Physician Crime Lab Technician Urology 10/01/21 [place] [address] [facility] [place] [address] Family Medicine 08/27/22 Franny Shrestha PA-C [address] [facility] [address] [place] [address] Assigned Surgical Provider 12/21/22 05/28/24 Amanda Ibrahim MD Assigned Heart and Vascular Provider 01/18/23 01/26/24 [facility] [address] [place] [address] Assigned PCP 10/28/23 10/26/24 documented as of this encounter
--- OUTSIDE RECORDS SUMMARY | 2025-06-07 04:56 | XMS_ITS | Encounter Summary ---
Author Organization [place] Address [address] [place] [address] Care Team Providers Care Margin Trimmer Name Role Phone Page, Nikki Vega RN Unavailable Unavailable Bryon Bell MD Primary Care Provider + [phone] Bryon Bell MD Unavailable [phone] Amanda Ibrahim MD Unavailable [facility]availabl [facility] Unavailable [phone] Franny Shrestha PA-C Unavailable [phone] Franny Shrestha PA-C Unavailable [phone] Anyi Broderick MD Unavailable Bryon Bell MD Unavailable [phone] Anyi Broderick MD Unavailable Vitaliy Solo MD Primary Care Provider Bryon Bell MD Unavailable [phone] Anyi Broderick MD Unavailable Aimee Mascorro MD Unavailable [phone] Franny Shrestha PA-C Unavailable [phone] Amanda Ibrahim MD Un[facility] Reason for Visit * Reason Onset Date Comments MyChart Communication 05/03/2021 Encounter Details Date Type Department Care Team (Late st Contact Info) Description 05/03/2021 [facility] [address] [place] [phone] [place] [address] [address] [place], [place] [id number] MyChart Communication Social History Tobacco Use Types [...] PM CDT 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 AND 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 INSPECTOR Gender Identity Male 03/03/2021 2:33 PM [...] on filedocumented in this encounter Care Teams Margin Trimmer Relationship Specialty Start Date End Date Bryon Bell MD PCP - General Family Medicine 03/06/21 05/05/22 Vitaliy Solo MD [facility] [address] [place] [address] PCP - General Emergency Medicine 07/19/22 Nikki Pierre RN Personal Advocate & Liaison (PAL) Family Medicine 03/06/21 03/25/22 [place] [address] [place] [address] Assigned PCP 03/11/21 01/18/22 Amanda Ibrahim MD Assigned Heart and Vascular Provider 04/22/21 05/26/21 Hardik Laureen BergmanGUS DEICER REPAIRER PNEUMATIC [address] [place] [address] Assigned Heart and Vascular Provider 05/27/21 01/17/23 Franny Shrestha PA-C [address] [place] [address] Physician Primer Waterproofing Machine Adjuster Urology 10/01/21 Franny Shrestha PA-C [address] [place] [address] Assigned Surgical Provider 12/29/21 11/22/22 [place] [address] [place] [address] Assigned PCP 01/19/22 03/08/22 [place] [address] [place] [address] Assigned PCP 03/09/22 03/22/22 [place] [address] [place] [address] Assigned PCP 03/23/22 06/21/22 [place] [address] [place] [address] Family Medicine 08/27/22 [place] [address] [place] [address] Assigned PCP 08/31/22 10/27/23 Aimee Mascorro MD [address] [place] [address] Assigned Surgical Provider 11/23/22 12/20/22 Franny Shrestha PA-C [address] [place] [address] Assigned Surgical Provider 12/21/22 05/28/24 Amanda Ibrahim MD Assigned Heart and Vascular Provider 01/18/23 01/26/24 [employer] [address] [place] [address] Assigned PCP 10/28/23 10/26/24 documented as of this encounter
--- OUTSIDE RECORDS SUMMARY | 2025-06-07 04:56 | XMS_ITS | Encounter Summary ---
Author Organization [place] Address [address] [place] [address] Care Team Providers Care Mold Runner Name Role Phone No Ref-Primary, Physician Primary Care Provider Bryon Bell MD Unavailable [phone] Bryon Bell MD Unavailable [phone] Anyi Broderick MD Unavailable Nikki Pierre RN Unavailable Unavailable Bryon Bell MD Primary Care Provider + [phone] Bryon Bell MD Unavailable [phone] Amanda Ibrahim MD Unavailable UnavailLaureen Doe APRN PAPER CUTTING MACHINE OPERATOR Unavailable [phone] Franny Shrestha PA-C Unavailable [phone] Franny Shrestha PA-C Unavailable [phone] Anyi Broderick MD Unavailable Bryon Bell MD Unavailable Anyi Broderick MD Unavailable Vitaliy Solo MD Primary Care Provider Bryon Bell MD Unavailable [phone] Anyi Broderick MD Unavailable Aimee Mascorro MD Unavailable [phone] Franny Shrestha PA-C Unavailable Amanda Ibrahim MD Unavailable Unavailabl e [facility] Encounter Details Date Type Department Care Team (Late st Contact Info) Description 08/26/2018 MyC Medical Advice [facility] [address] [place] [phone] [place] [address] [facility] [address] Social History Tobacco Use Types Packs/Day Years Used Date Smoking Tobacco: Former Smokeless Tobacco: Never Alcohol Use Standard Drinks/Week Comments Yes 0 (1 standard drink = 0.6 oz pur e alcohol) PHQ-2 Answer Date Recorded PHQ-2 Score 0 08/21/2018 Sex and Gender Information Value Date Recorded Sex Assigned at Male 03/03/2021 2:33 PM CDT 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 Gender Identity Male 03/03/2021 2:33 PM CDT Sexual Orientation Straight 03/03/2021 2: 33 PM CDT documented as of this encounter Plan of Treatment Not on file documented as of this encounter Visit Diagnoses Not on filedocumented in this encounter Care Teams Mold Runner Relationship Specialty Start Date End Date No Ref-Primary, Physician PCP - General 08/14/18 03/05/21 [place] [address] [place] [address] PCP - Assigned PCP 07/30/18 09/08/18 Bryon Bell MD PCP - General Family Medicine 03/06/21 05/05/22 Vitaliy Solo MD [facility] [address] [place] [address] PCP - General Emergency Medicine 07/19/22 [place] [address] [place] [address] Assigned PCP 07/30/18 01/18/21 [place] [address] [place] [address] Assigned PCP 01/19/21 03/10/21 Nikki Pierre RN Personal Advocate & Liaison (PAL) Family Medicine 03/06/21 03/25/22 [place] [address] [place] [address] Assigned PCP 03/11/21 01/18/22 Amanda Ibrahim MD Assigned Heart and Vascular Provider 04/22/21 05/26/21 Laureen Dye APRN PAPER CUTTING MACHINE OPERATOR [address] [place] [address] Assigned Heart and Vascular Provider 05/27/21 01/17/23 Franny Shrestha PA-C [address] [place] [address] Physician Denture Laboratory Technician Urology 10/01/21 Franny Shrestha PA-C [address] [place] [address] Assigned Surgical Provider 12/29/21 11/22/22 [place] [address] [place] [address] Assigned PCP 01/19/22 03/08/22 [place] [address] [place] [address] Assigned PCP 03/09/22 03/22/22 [place] [address] [place] [address] Assigned PCP 03/23/22 06/21/22 [place] [address] [place] [address] Family Medicine 08/27/22 [place] [address] [place] [address] Assigned PCP 08/31/22 10/27/23 Aimee Mascorro MD [address] [place] [address] Assigned Surgical Provider 11/23/22 12/20/22 Franny Shrestha PA-C [address] [place] [address] Assigned Surgical Provider 12/21/22 05/28/24 Amanda Ibrahim MD Assigned Heart and Vascular Provider 01/18/23 01/26/24 [facility] [address] [place] [address] Assigned PCP 10/28/23 10/26/24 documented as of this encounter
--- OUTSIDE RECORDS SUMMARY | 2025-06-07 04:56 | XMS_ITS | Encounter Summary ---
Author Organization [place] Address [address] [place] [address] Care Team Providers Care Fats And Oils Loader Name Role Phone Page, Nikki Vega RN Unavailable Unavailable Bryon Bell MD Primary Care Provider + [phone] Bryon Bell MD Unavailable [phone] Amanda Ibrahim MD Unavailable Unavailabl Laureen Dye APRN [facility] Unavailable [phone] Franny Shrestha PA-C Unavailable [phone] Franny Shrestha PA-C Unavailable [phone] Anyi Broderick MD Unavailable Bryon Bell MD Unavailable [phone] Anyi Broderick MD Unavailable Vitaliy Solo MD Primary Care Provider Bryon Bell MD Unavailable [phone] Anyi Broderick MD Unavailable Aimee Mascorro MD Unavailable [phone] Franny Shrestha PA-C Unavailable [phone] Amanda Ibrahim MD Un[facility] e Encounter Details Date Type Department Care Team (Late st Contact Info) Description 05/14/2021 [facility] Heart 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 Gender Identity Male 03/03/2021 2:33 PM [...] on filedocumented in this encounter Care Teams Fats And Oils Loader Relationship Specialty Start Date End Date Bryon Bell MD PCP - General Family Medicine 03/06/21 05/05/22 Vitaliy Solo MD [facility] [address] [place] [address] PCP - General Emergency Medicine 07/19/22 Nikki Pierre, RN Personal Advocate & Liaison (PAL) Family Medicine 03/06/21 03/25/22 [place] [address] [place] [address] Assigned PCP 03/11/21 01/18/22 Amanda Ibrahim MD Assigned Heart and Vascular Provider 04/22/21 05/26/21 Hardik Laureen GUS Bergman BOOK JOGGER [address] [place] [address] Assigned Heart and Vascular Provider 05/27/21 01/17/23 Franny Shrestha PA-C [address] [place] [address] Physician Developer Evangelist Urology 10/01/21 Franny Shrestha PA-C [address] [place] [address] Assigned Surgical Provider 12/29/21 11/22/22 [place] [address] [place] [address] Assigned PCP 01/19/22 03/08/22 [place] [address] [place] [address] Assigned PCP 03/09/22 03/22/22 [place] [address] [place] [address] Assigned PCP 03/23/22 06/21/22 [place] [address] [place] [address] Family Medicine 08/27/22 [place] [address] [place] [address] Assigned PCP 08/31/22 10/27/23 Aimee Mascorro MD [address] [place] [address] Assigned Surgical Provider 11/23/22 12/20/22 Franny Shrestha PA-C [address] [place] [address] Assigned Surgical Provider 12/21/22 05/28/24 Amanda Ibrahim MD Assigned Heart and Vascular Provider 01/18/23 01/26/24 [facility] [address] [place] [address] Assigned PCP 10/28/23 10/26/24 documented as of this encounter
--- OUTSIDE RECORDS SUMMARY | 2025-06-07 04:56 | XMS_ITS | Encounter Summary ---
Author Organization [place] Address [address] [place] [address] Care Team Providers Care Weed Science Research Technician Name Role Phone No Ref-Primary, Physician Primary Care Provider Bryon Bell MD Unavailable [phone] Bryon Bell MD Unavailable [phone] Anyi Broderick MD Unavailable Nikki Pierre RN Unavailable Unavailable Bryon Bell MD Primary Care Provider + [phone] Bryon Bell MD Unavailable [phone] Amanda Ibrahim MD Unavailable UnavailLaureen Doe APRN REVENUE INTEGRITY ANALYST Unavailable [phone] Franny Shrestha PA-C Unavailable [phone] Franny Shrestha PA-C Unavailable [phone] Anyi Broderick MD Unavailable Bryon Bell MD Unavailable Anyi Broderick MD Unavailable Vitaliy Solo MD Primary Care Provider Bryon Bell MD Unavailable [phone] Anyi Broderick MD Unavailable Aimee Mascorro MD Unavailable [phone] Franny Shrestha PA-C Unavailable Amanda Ibrahim MD Unavailable Unavailabl e [facility] e Encounter Details Date Type Department Care Team (Late st Contact Info) Description 08/21/[address] 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 [address] [place] [address] PCP - General Emergency Medicine 07/19/22 [place] [address] [place] [address] Assigned PCP 07/30/18 01/18/21 [place] [address] [place] [address] Assigned PCP 01/19/21 03/10/21 Nikki Pierre RN Personal Advocate & Liaison (PAL) Family Medicine 03/06/21 03/25/22 [place] [address] [place] [address] Assigned PCP 03/11/21 01/18/22 Amanda Ibrahim MD Assigned Heart and Vascular Provider 04/22/21 05/26/21 Laureen Dye APRN REVENUE INTEGRITY ANALYST [address] [place] [address] Assigned Heart and Vascular Provider 05/27/21 01/17/23 Franny Shrestha PA-C [address] [place] [address] Physician Knife Blade Polisher Urology 10/01/21 Franny Srhestha PA-C [address] [place] [address] Assigned Surgical Provider 12/29/21 11/22/22 [place] [address] [place] [address] Assigned PCP 01/19/22 03/08/22 [place] [address] [place] [address] Assigned PCP 03/09/22 03/22/22 [place] [address] [place] [address] Assigned PCP 03/23/22 06/21/22 [place] [address] [place] [address] Family Medicine 08/27/22 [place] [address] [place] [address] Assigned PCP 08/31/22 10/27/23 Aimee Mascorro MD [address] [place] [address] Assigned Surgical Provider 11/23/22 12/20/22 Franny Shrestha PA-C [address] [place] [address] Assigned Surgical Provider 12/21/22 05/28/24 Amanda Ibrahim MD Assigned Heart and Vascular Provider 01/18/23 01/26/24 [facility] [address] [place] [address] Assigned PCP 10/28/23 10/26/24 documented as of this encounter
--- OUTSIDE RECORDS SUMMARY | 2025-06-07 04:56 | XMS_ITS | Clinical Summary ---
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 Gender Identity Not on file Sexual Orientation [...] 75+ series) 2019 COVID-19 vaccine series ( - season) 2025 02/19/2021, 01/22/2021 Influenza Vaccine (#1) 2025 Hepatitis B series for 19+ Aged Out N o longer eligible based on patient's age to complete this topic Insurance BLUE CROSS NATIVE BLUE MR PB ONLY BLUE CROSS NATIVE BLUE HB ONLY MEDICARE PART A HB ONLY MEDICARE PART B HB ONLY Advance Directives * Full Code (Latest Code Status on File) Date Activated Date Inactivated Comments 01/23/2013 1:38 AM 01/23/2013 4:48 PM Care Teams International Logistics Analyst Relationship Specialty Start Date End Date Vitaliy Solo MD [address] [place] [address] PCP - General Internal Medicine 11/10/23
--- OUTSIDE RECORDS SUMMARY | 2025-06-07 04:57 | XMS_ITS | Encounter Summary ---
Author Organization [place] Address [address] [place] [address] Care Team Providers Care University Controller Name Role Phone Page, Nikki Vega RN Unavailable Unavailable Bryon Bell MD Primary Care Provider + [phone] Bryon Bell MD Unavailable [phone] Amanda Ibrahim MD Unavailable Unavailabl [facility] Hospital[facility] APRN [facility] Unavailable [phone] Franny Shrestha PA-C Unavailable [phone] Franny Shrestha PA-C Unavailable [phone] Anyi Broderick MD Unavailable Bryon Bell MD Unavailable [phone] Anyi Broderick MD Unavailable Vitaliy Solo MD Primary Care Provider Bryon Bell MD Unavailable [phone] Anyi Broderick MD Unavailable Aimee Mascorro MD Unavailable [phone] Franny Shrestha PA-C Unavailable [phone] Amanda Ibrahim MD Un[facility] Reason for Visit * Reason Onset Date Comments MyChart Communication 04/09/2021 Encounter Details Date Type Department Care Team (Late st Contact Info) Description 04/09/2021 [facility] [id number] [place] [phone] [place] [address] [address] [place], [place] [id number] MyChart Communication Social History Tobacco Use Types [...] PM CDT 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 Gender Identity Male 03/03/2021 2:33 PM [...] on filedocumented in this encounter Care Teams University Controller Relationship Specialty Start Date End Date Bryon Bell MD PCP - General Family Medicine 03/06/21 05/05/22 Vitaliy Solo MD [facility] [address] [place] [address] PCP - General Emergency Medicine 07/19/22 Nikki Pierre RN Personal Advocate & Liaison (PAL) Family Medicine 03/06/21 03/25/22 [place] [address] [place] [address] Assigned PCP 03/11/21 01/18/22 Amanda Ibrahim MD Assigned Heart and Vascular Provider 04/22/21 05/26/21 Hardik Laureen BergmanGUS ADULT MANAGER [address] [place] [address] Assigned Heart and Vascular Provider 05/27/21 01/17/23 Franny Shrestha PA-C [address] [place] [address] Physician Carpet Sewer Urology 10/01/21 Franny Shrestha PA-C [address] [place] [address] Assigned Surgical Provider 12/29/21 11/22/22 [place] [address] [place] [address] Assigned PCP 01/19/22 03/08/22 [place] [address] [place] [address] Assigned PCP 03/09/22 03/22/22 [place] [address] [place] [address] Assigned PCP 03/23/22 06/21/22 [place] [address] [place] [address] Family Medicine 08/27/22 [place] [address] [place] [address] Assigned PCP 08/31/22 10/27/23 Aimee Mascorro MD [address] [place] [address] Assigned Surgical Provider 11/23/22 12/20/22 Franny Shrestha PA-C [address] [place] [address] Assigned Surgical Provider 12/21/22 05/28/24 Amanda Ibrahim MD Assigned Heart and Vascular Provider 01/18/23 01/26/24 [facility] [address] [place] [address] Assigned PCP 10/28/23 10/26/24 documented as of this encounter
--- OUTSIDE RECORDS SUMMARY | 2025-06-07 04:57 | XMS_ITS | Encounter Summary ---
Author Organization [place] Address [address] [place] [address] Care Team Providers Care Survival Specialist Name Role Phone Anyi Broderick MD Unavailable Nikki Pierre RN Unavailable Unavailable Bryon Bell MD Primary Care Provider + [phone] Bryon Bell MD Unavailable [phone] Amanda Ibrahim MD Unavailable Unavailabl [facility] Unavailable [phone] Franny Shrestha PA-C Unavailable [phone] Franny Shrestha PA-C Unavailable [phone] Anyi Broderick MD Unavailable Bryon Bell MD Unavailable [phone] Anyi Broderick MD Unavailable Vitaliy Solo MD Primary Care Provider Bryon Bell MD Unavailable [phone] Anyi Broderick MD Unavailable Aimee Mascorro MD Unavailable [phone] Franny Shrestha-C Unavailable [phone] Amanda Ibrahim MD Unavailable [facility] e Reason for Visit * Reason Onset Date Comments MyChart Communication 03/07/2021 Encounter Details Date Type Department Care Team (Latest Contact Info) Description 03/07/2021 [facility] [address] [place] [phone] Nikki Pierre RN MyChart Communication Social [...] PM CDT 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 Gender Identity Male 03/03/2021 2:33 PM [...] 03/21/2021 9:40 AM CDT Pt returned call [facility] reviewed echo and reason this is [...] on filedocumented in this encounter Care Teams Survival Specialist Relationship Specialty Start Date End Date Bryon Bell MD PCP - General Family Medicine 03/06/21 05/05/22 Vitaliy Solo MD [facility] [address] [facility] [address] PCP - General Emergency Medicine 07/19/22 [place] [address] [place] [address] Assigned PCP 01/19/21 03/10/21 Nikki Pierre RN Personal Advocate & Liaison (PAL) Family Medicine 03/06/21 03/25/22 [place] [address] [place] [address] Assigned PCP 03/11/21 01/18/22 Amanda Ibrahim MD Assigned Heart and Vascular Provider 04/22/21 05/26/21 Laureen Dye, ANIMAL PATHOLOGY TEACHER CONSTRUCTION SITE CROSSING GUARD [address] [place] [address] Assigned Heart and Vascular Provider 05/27/21 01/17/23 Franny Shrestha PA-C [address] [place] [address] Physician Heel Emery Buffer Urology 10/01/21 Franny Shrestha PA-C [address] [place] [address] Assigned Surgical Provider 12/29/21 11/22/22 [place] [address] [address] [place] [address] Assigned PCP 01/19/22 03/08/22 [place] [address] [place] [address] Assigned PCP 03/09/22 03/22/22 [place] [address] [address] [place] [address] Assigned PCP 03/23/22 06/21/22 [place] [address] [place] [address] Family Medicine 08/27/22 [place] [address] [place] [address] Assigned PCP 08/31/22 10/27/23 Aimee Mascorro MD [address] [place] [address] Assigned Surgical Provider 11/23/22 12/20/22 Franny Shrestha PA-C [address] [place] [address] Assigned Surgical Provider 12/21/22 05/28/24 Amanda Ibrahim MD Assigned Heart and Vascular Provider 01/18/23 01/26/24 [facility] [address] [place] [address] Assigned PCP 10/28/23 10/26/24 documented as of this encounter
--- OUTSIDE RECORDS SUMMARY | 2025-06-07 04:57 | XMS_ITS | Encounter Summary ---
Author Organization [place] Address [address] [place] [address] Care Team Providers Care Oriental Rug Repairer Name Role Phone Nikki Pierre RN Unavailable Unavailable Bryon Bell MD Primary Care Provider Laureen Dye APRN PROFESSIONAL ATHLETE Unavailable [phone] Franny ShresthaC Unavailable [phone] Franny Shrestha PA-C Unavailable Anyi Broderick MD Unavailable Bryon Bell MD Unavailable Anyi Broderick MD Unavailable Vitaliy Solo MD Primary Care Provider Bryon Bell MD Unavailable [phone] Anyi Broderick MD Unavailable Aimee Mascorro MD Unavailable [phone] Franny Shrestha PA-C Unavailable Amanda Ibrahim MD Unavailable Unavailabl e [facility] Unavailabl e Encounter Details Date Type Department Care Team (Late st Contact Info) Description 02/06/2022 [facility] Medical Advice [facility] [address] [place] [address] Page, Nikki M, RN Social [...] PM CDT 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 Gender Identity Male 03/03/2021 2:33 PM CDT Sexual Orientation Straight 03/03/2021 2: 33 PM CDT documented as of this encounter Plan of Treatment Not on file documented as of this encounter Visit Diagnoses Not on filedocumented in this encounter Care Teams Oriental Rug Repairer Relationship Specialty Start Date End Date Bryon Bell MD PCP - General Family Medicine 03/06/21 05/05/22 Vitaliy Solo MD [facility] [address] [address] PCP - General Emergency Medicine 07/19/22 Nikki Pierre, RN Personal Advocate & Liaison (PAL) Family Medicine 03/06/21 03/25/22 Laureen Dye APRN PROFESSIONAL ATHLETE [address] [place] [address] Assigned Heart and Vascular Provider 05/27/21 01/17/23 Franny Shrestha PA-C [address] [place] [address] Physician Marketing Program Manager Urology 10/01/21 Franny Shrestha PA-C [address] [place] [address] Assigned Surgical Provider 12/29/21 11/22/22 [place] [address] [place] [address] Assigned PCP 01/19/22 03/08/22 [place] [address] [place] [address] Assigned PCP 03/09/22 03/22/22 [place] [address] [place] [address] Assigned PCP 03/23/22 06/21/22 [place] [address] [place] [address] Family Medicine 08/27/22 [place] [address] [place] [address] Assigned PCP 08/31/22 10/27/23 Aimee Mascorro MD [address] [place] [address] Assigned Surgical Provider 11/23/22 12/20/22 Franny Shrestha PA-C [address] [place] [address] Assigned Surgical Provider 12/21/22 05/28/24 Amanda Ibrahim MD Assigned Heart and Vascular Provider 01/18/23 01/26/24 [facility] [address] [place] [address] Assigned PCP 10/28/23 10/26/24 documented as of this encounter
--- OUTSIDE RECORDS SUMMARY | 2025-06-07 04:57 | XMS_ITS | Encounter Summary ---
Author Organization [place] Address [address] [place] [address] Care Team Providers Care Nursing Unit Manager Name Role Phone No Ref-Primary, Physician Primary Care Provider Bryon Bell MD Unavailable [phone] Anyi Broderick MD Unavailable Nikki Pierre RN Unavailable Unavailable Bryon Bell MD Primary Care Provider + [phone] Bryon Bell MD Unavailable [phone] Amanda Ibrahim MD Unavailable UnavailLaureen Doe APRN, CNP Unavailable [phone] Franny ShresthaC Unavailable [phone] Franny Shrestha PA-C Unavailable [phone] Anyi Broderick MD Unavailable Bryon Bell MD Unavailable [phone] Anyi Broderick MD Unavailable Vitaliy Solo MD Primary Care Provider Bryon Bell MD Unavailable [phone] Anyi Broderick MD Unavailable Aimee Mascorro MD Unavailable [phone] Franny Shrestha PA-C Unavailable [phone] Amanda Ibrahim MD [facility] Reason for Visit * Reason Onset Date Comments MyChart Communication 03/09/2020 Encounter Details Date Type Department Care Team (Late st Contact Info) Description 03/09/2020 MyC Medical Advice [facility] [address] [place] [address] [place] [address] [facility] [place] [address] MyChart Communication Social History Tobacco Use Types [...] PM CDT 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 Gender Identity Male 03/03/2021 2:33 PM CDT [...] on filedocumented in this encounter Care Teams Nursing Unit Manager Relationship Specialty Start Date End Date No Ref-Primary, Physician PCP - General 08/14/18 03/05/21 Bryon Bell MD PCP - General Family Medicine 03/06/21 05/05/22 Vitaliy Solo MD [facility] [address] [place] [address] PCP - General Emergency Medicine 07/19/22 [place] [address] [place] [address] Assigned PCP 07/30/18 01/18/21 [place] [address] [place] [address] Assigned PCP 01/19/21 03/10/21 Nikki Pierre, RN Personal Advocate & Liaison (PAL) Family Medicine 03/06/21 03/25/22 [place] [address] [address] Assigned PCP 03/11/21 01/18/22 Amanda Ibrahim MD Assigned Heart and Vascular Provider 04/22/21 05/26/21 Laureen Dye APRN PASSPORT SUPPORT MANAGER [address] [place] [address] Assigned Heart and Vascular Provider 05/27/21 01/17/23 Franny Shrestha PA-C [address] [place] [address] Physician All Source Intelligence Technician Urology 10/01/21 Franny Shrestha PA-C [address] [place] [address] Assigned Surgical Provider 12/29/21 11/22/22 [place] [address] [place] [address] Assigned PCP 01/19/22 03/08/22 [place] [address] [place] [address] Assigned PCP 03/09/22 03/22/22 [place] [address] [place] [address] Assigned PCP 03/23/22 06/21/22 [place] [address] [place] [address] Family Medicine 08/27/22 [place] [address] [place] [address] Assigned PCP 08/31/22 10/27/23 Aimee Mascorro MD [address] [place] [address] Assigned Surgical Provider 11/23/22 12/20/22 Franny Shrestha PA-C [address] [place] [address] Assigned Surgical Provider 12/21/22 05/28/24 Amanda Ibrahim MD Assigned Heart and Vascular Provider 01/18/23 01/26/24 [facility] [address] [place] [address] Assigned PCP 10/28/23 10/26/24 documented as of this encounter
--- OUTSIDE RECORDS SUMMARY | 2025-06-07 04:57 | XMS_ITS | Clinical Summary ---
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 Gender Identity Male 03/03/2021 2:33 PM CDT Sexual Orientation Straight 03/03/2021 2: 33 PM CDT Last Filed Vital Signs Vital Sign Reading Time Taken Comments Blood Pressure 160/85 11/19/2022 2:07 PM CDT Pulse 63 11/19/2022 2:07 PM CDT Temperature 36 C (96.8 F) 09/06/2021 10:26 AM PEANUT PICKER Respiratory Rate 14 09/06/2021 10:26 AM PEANUT PICKER Oxygen Saturation 98% 07/19/2022 2:28 PM PEANUT PICKER Inhaled Oxygen Concentration - - Weight 88.9 [...] 2024 12/24/2021, 09/06/2021, 08/29/2021, Additional history exists COVID-19 VACCINE ( - 2024- season) 2025 02/19/2021, 01/22/2021 INFLUENZA VACCINE (#1) 2025 7, 05/16/2016, 06/06/2015, Additional history exists ADVANCE CARE PLANNING 03/06/2026 [...] BASIC METABOLIC PANEL Routine 08/01/2022 11:08 AM PEANUT PICKER Atrial fibrillation, unspecified type (H) TSH WITH FREE T4 REFLEX Routine 07/19/2022 1:01 PM PEANUT PICKER Atrial fibrillation (H) COLONOSCOPY - HIM SCAN 03/10/2014 12:00 AM CDT from Last 3 Months or Most Recently Relevant to Health Maintenance Results * (ABNORMAL) Basic metabolic panel (08/01/2022 11:08 AM PEANUT PICKER) Sodium 140 136 - 145 mmol/L 08/01/2022 11:[address] [facility] Potassium 4.2 3.4 - 5.3 mmol/L 08/01/2022 11:[address] [facility] Chloride 103 98 - 107 mmol/L 08/01/2022 11:[address] [facility] Carbon Dioxide (CO2) 31(H) 22 - 29 mmol/L 08/01/2022 11:[address] [facility] Anion Gap 6(L) 7 - 15 mmol/L 08/01/2022 11:[address] [facility] Urea Nitrogen 20.9 8.0 - 23.0 mg/dL 08/01/2022 11:[address] [facility] Creatinine 0.92 0.67 - 1.17 mg/dL 08/01/2022 11:[address] [facility] Calcium 8.9 8.8 - 10.2 mg/dL 08/01/2022 11:[address] [facility] Glucose 187(H) 70 - 99 mg/dL 08/01/2022 11:[address] [facility] GFR Estimate 85 >60 mL/min/1.7 3m2 08/01/2022 11:[address] [facility] Comment:eGFR calculated usin g 2020 CKD-EPI equation. Blood STRUCTURE OF LEFT UPPER LIMB / Unknown Venipuncture / Unknown 08/01/2022 11:08 AM PEANUT PICKER 08/01/2022 11:13 AM PEANUT PICKER Amanda Ibrahim MD LAB - BLOOD ORDERABLES Christina l Result [facility] [address] Lab (1st floor, no room number) [place] [address], [facility] [phone] * TSH with free T4 reflex (07/19/2022 1:01 PM PEANUT PICKER) TSH 1.91 0.30 - 4.20 uIU/mL 07/19/2022 1:44 PM [facility] Blood STRUCTURE OF LEFT UPPER LIMB / Unknown Venipuncture / Unknown 07/19/2022 1:01 PM PEANUT PICKER 07/19/2022 1:01 PM PEANUT PICKER Amanda Ibrahim MD LAB - BLOOD ORDERABLES Christina l Result Performing Organization Address City/[facility]/ZIP Co de Phone Number [facility] [address] Lab (1st floor, no room number) [place] [address], [facility] [phone] * COLONOSCOPY - HIM SCAN (03/10/2014 12:00 AM CDT) 03/10/2014 Provider Outside PROCEDURES Final Result from Last 3 Months or Most Recently Relevant to Health Maintenance Insurance [facility] YOMBA SHOSHONE BLUE MEDICARE [facility] MEDICARE BCBS YOMBA SHOSHONE BLUE Care Teams Corporate Strategy Analyst Relationship Specialty Start Date End Date Vitaliy Solo MD [facility] [place] [address] [place] [address] PCP - General Emergency Medicine 07/19/22 Franny Shrestha PA-C [address] [address] Physician Pipeline Operator Urology 10/01/21 [place] [address] [place] [address] Family Medicine 08/27/22
--- OUTSIDE RECORDS SUMMARY | 2025-06-07 04:57 | XMS_ITS | Encounter Summary ---
Author Organization [place] Address [facility] [place] [address] Care Team Providers Care Loss Prevention Manager Name Role Phone Laureen Dye EMBEDDED SOFTWARE DEVELOPER TRAVEL SALES CONSULTANT Unavailable [phone] Franny Shrestha PA-C Unavailable Franny Shrestha PA-C Unavailable Anyi Broderick MD Unavailable Vitaliy Solo MD Primary Care Provider Bryon Bell MD Unavailable Anyi Broderick MD Unavailable Aimee Mascorro MD Unavailable [phone] Franny Shrestha PA-C Unavailable Amanda Ibrahim MD Unavailable Unavailabl e [facility] Unavailabl e Encounter Details Date Type Department Care Team (Late st Contact Info) Description 06/20/2022 [facility] [place] [address] [facility] [address] [place] [address] Laureen Dye, EMBEDDED SOFTWARE DEVELOPER TRAVEL SALES CONSULTANT [address] 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 Gender Identity Male 03/03/2021 2:33 PM CDT Sexual Orientation Straight 03/03/2021 2: 33 PM CDT documented as of this encounter Plan of Treatment Not on file documented as of this encounter Visit Diagnoses Not on filedocumented in this encounter Care Teams Loss Prevention Manager Relationship Specialty Start Date End Date Vitaliy Solo MD [facility] [address] [place] [address] PCP - General Emergency Medicine 07/19/22 Laureen Dye, EMBEDDED SOFTWARE DEVELOPER TRAVEL SALES CONSULTANT [address] [place] [address] Assigned Heart and Vascular Provider 05/27/21 01/17/23 Franny Shrestha PA-C [address] [place] [address] Physician Guide Dog Instructor Urology 10/01/21 Franny Shrestha PA-C [address] [facility] [address] [place] [address] Assigned Surgical Provider 12/29/21 11/22/22 [place] [address] [place] [address] Assigned PCP 03/23/22 06/21/22 [place] [address] [place] [address] Family Medicine 08/27/22 [place] [address] [address] [address] Assigned PCP 08/31/22 10/27/23 Aimee Mascorro MD [address] [place] [address] Assigned Surgical Provider 11/23/22 12/20/22 Franny Shrestha PA-C [address] [place] [address] Assigned Surgical Provider 12/21/22 05/28/24 Amanda Ibrahim MD Assigned Heart and Vascular Provider 01/18/23 01/26/24 [facility] [address] [place] [address] Assigned PCP 10/28/23 10/26/24 documented as of this encounter
--- OUTSIDE RECORDS SUMMARY | 2025-06-07 04:57 | XMS_ITS | Encounter Summary ---
Author Organization [place] Address [address] [place] [address] Care Team Providers Care Facilities Supervisor Name Role Phone Page, Nikki Vega RN Unavailable Unavailable Bryon Bell MD Primary Care Provider [phone] Bryon Bell MD Unavailable [phone] Amanda Ibrahim MD Unavailable [facility]availabl [facility] Unavailable [phone] Franny Shrestha PA-C Unavailable [phone] Franny Shrestha PA-C Unavailable [phone] Anyi Broderick MD Unavailable Bryon Bell MD Unavailable [phone] Anyi Broderick MD Unavailable Vitaliy Solo MD Primary Care Provider Bryon Bell MD Unavailable [phone] Anyi Broderick MD Unavailable Aimee Mascorro MD Unavailable [phone] Franny Shrestha PA-C Unavailable [phone] Amanda Ibrahim MD Un[facility] Reason for Visit * Reason Onset Date Comments MyChart Communication 05/08/2021 Encounter Details Date Type Department Care Team (Late st Contact Info) Description 05/08/2021 [facility] [address] [place] [phone] [place] [address] [address] [place], [place] [id number] MyChart Communication Social History Tobacco Use Types [...] PM CDT 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 Gender Identity Male 03/03/2021 2:33 PM [...] on filedocumented in this encounter Care Teams Facilities Supervisor Relationship Specialty Start Date End Date Bryon Bell MD PCP - General Family Medicine 03/06/21 05/05/22 Vitaliy Solo MD [facility] [address] [place] [address] PCP - General Emergency Medicine 07/19/22 Nikki Pierre RN Personal Advocate & Liaison (PAL) Family Medicine 03/06/21 03/25/22 [place] [address] [place] [address] Assigned PCP 03/11/21 01/18/22 Amanda Ibrahim MD Assigned Heart and Vascular Provider 04/22/21 05/26/21 Hardik Laureen BergmanGUS AEROSPACE PROJECT MANAGER [address] [place] [address] Assigned Heart and Vascular Provider 05/27/21 01/17/23 Franny Shrestha PA-C [address] [place] [address] Physician Chemical Research Worker Urology 10/01/21 Franny Shrestha PA-C [address] [place] [address] Assigned Surgical Provider 12/29/21 11/22/22 [place] [address] [place] [address] Assigned PCP 01/19/22 03/08/22 [place] [address] [place] [address] Assigned PCP 03/09/22 03/22/22 [place] [address] [place] [address] Assigned PCP 03/23/22 06/21/22 [place] [address] [place] [address] Family Medicine 08/27/22 [place] [address] [place] [address] Assigned PCP 08/31/22 10/27/23 Aimee Mascorro MD [address], [address] [place] [address] Assigned Surgical Provider 11/23/22 12/20/22 Franny Shrestha PA-C [address] [place] [address] Assigned Surgical Provider 12/21/22 05/28/24 Amanda Ibrahim MD Assigned Heart and Vascular Provider 01/18/23 01/26/24 [facility] [address] [place] [address] Assigned PCP 10/28/23 10/26/24 documented as of this encounter
--- OUTSIDE RECORDS SUMMARY | 2025-06-07 04:57 | XMS_ITS | Encounter Summary ---
Author Organization [place] Address [address] [place] [address] Care Team Providers Care Casino Cage Supervisor Name Role Phone Laueren Dye APRN LICENSING ENGINEER Unavailable [phone] Franny Shrestha PA-C Unavailable Franny Shrestha PA-C Unavailable [phone] Anyi Broderick MD Unavailable Vitaliy Solo MD Primary Care Provider Bryon Bell MD Unavailable Anyi Broderick MD Unavailable Aimee Mascorro MD Unavailable [phone] Franny Shrestha PA-C Unavailable Amanda Ibrahim MD Unavailable Unavailabl e [facility] Unavailabl e Encounter Details Date Type Department Care Team (Late st Contact Info) Description 06/07/2022 MyC Medical Advice [facility] [address] [place] [address] Franny Shrestha PA-C [address] [facility] [address] [place], [place] [address] Social History Tobacco Use Types Packs/Day Years Used Date Smoking Tobacco: Never Smokeless Tobacco: Never Alcohol Use Standard Drinks/Week Comments Yes 0 (1 standard drink = 0.6 oz pur e alcohol) occ PHQ-2 Answer Date Recorded PHQ-2 Score 0 12/24/2021 Sex and Gender Information Value Date Recorded Sex Assigned at Male 03/03/2021 2:33 PM CDT 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 Gender Identity Male 03/03/2021 2:33 PM CDT Sexual Orientation Straight 03/03/2021 2: 33 PM CDT documented as of this encounter Plan of Treatment Not on file documented as of this encounter Visit Diagnoses Not on filedocumented in this encounter Care Teams Casino Cage Supervisor Relationship Specialty Start Date End Date Vitaliy Solo MD [facility] [address] [place] [address] PCP - General Emergency Medicine 07/19/22 Laureen Dye, HOUSE SUPERVISOR LICENSING ENGINEER [address] [place] [address] Assigned Heart and Vascular Provider 05/27/21 01/17/23 Franny Shrestha PA-C [address] [place] [address] Physician Manager Rehab Urology 10/01/21 Franny Shrestha PA-C [address] [place] [address] Assigned Surgical Provider 12/29/21 11/22/22 [place] [address] [place] [address] Assigned PCP 03/23/22 06/21/22 [place] [address] [place] [address] Family Medicine 08/27/22 [place] [address] [place] [address] Assigned PCP 08/31/22 10/27/23 Aimee Mascorro MD [address] [place] [address] Assigned Surgical Provider 11/23/22 12/20/22 Franny Shrestha PA-C [address] [place] [address] Assigned Surgical Provider 12/21/22 05/28/24 Amanda Ibrahim MD Assigned Heart and Vascular Provider 01/18/23 01/26/24 [facility] [address] [place] [address] Assigned PCP 10/28/23 10/26/24 documented as of this encounter
--- OUTSIDE RECORDS SUMMARY | 2025-06-07 04:57 | XMS_ITS | Encounter Summary ---
Author Organization [place] Address [address] [place] [address] Care Team Providers Care Title Vehicle Service Attendant Name Role Phone No Ref-Primary, Physician Primary Care Provider Bryon Bell MD Unavailable [phone] Bryon Bell MD Unavailable [phone] Anyi Broderick MD Unavailable Nikki Pierre RN Unavailable Unavailable Bryon Bell MD Primary Care Provider + [phone] Bryon Bell MD Unavailable [phone] Amanda Ibrahim MD Unavailable UnavailLaureen Doe APRN CONSULTING HR PROFESSIONAL Unavailable [phone] Franny Shrestha PA-C Unavailable [phone] Franny Shrestha PA-C Unavailable [phone] Anyi Broderick MD Unavailable Bryon Bell MD Unavailable Anyi Broderick MD Unavailable Vitaliy Solo MD Primary Care Provider Bryon Bell MD Unavailable [phone] Anyi Broderick MD Unavailable Aimee Mascorro MD Unavailable [phone] Franny Shrestha PA-C Unavailable Amanda Ibrahim MD Unavailable Unavailabl e [facility] Encounter Details Date Type Department Care Team (Late st Contact Info) Description 08/28/2018 MyC Medical Advice [facility] [address] [place] [phone] [place] [address] [place] [address] Social History Tobacco Use Types Packs/Day Years Used Date Smoking Tobacco: Former Smokeless Tobacco: Never Alcohol Use Standard Drinks/Week Comments Yes 0 (1 standard drink = 0.6 oz pur e alcohol) PHQ-2 Answer Date Recorded PHQ-2 Score 0 08/21/2018 Sex and Gender Information Value Date Recorded Sex Assigned at Male 03/03/2021 2:33 PM CDT 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 [address] [place] [address] PCP - General Emergency Medicine 07/19/22 [place] [address] [place] [address] Assigned PCP 07/30/18 01/18/21 [place] [address] [place] [address] Assigned PCP 01/19/21 03/10/21 Nikki Pierre RN Personal Advocate & Liaison (PAL) Family Medicine 03/06/21 03/25/22 [place] [address] [place] [address] Assigned PCP 03/11/21 01/18/22 Amanda Ibrahim MD Assigned Heart and Vascular Provider 04/22/21 05/26/21 Laureen Dye APRN CONSULTING HR PROFESSIONAL [address] [place] [address] Assigned Heart and Vascular Provider 05/27/21 01/17/23 Franny Shrestha PA-C [address] [place] [address] Physician Fourchette Sewer Urology 10/01/21 Franny Shrestha PA-C [address] [place] [address] Assigned Surgical Provider 12/29/21 11/22/22 [place] [address] [place] [address] Assigned PCP 01/19/22 03/08/22 [place] [address] [place] [address] Assigned PCP 03/09/22 03/22/22 [place] [address] [place] [address] Assigned PCP 03/23/22 06/21/22 [place] [address] [place] [place] [address] Family Medicine 08/27/22 [place] [address] [place] [address] Assigned PCP 08/31/22 10/27/23 Aimee Mascorro MD [address] [place] [address] Assigned Surgical Provider 11/23/22 12/20/22 Franny Shrestha PA-C [address] [place] [address] Assigned Surgical Provider 12/21/22 05/28/24 Amanda Ibrahim MD Assigned Heart and Vascular Provider 01/18/23 01/26/24 [facility] [address] [place] [address] Assigned PCP 10/28/23 10/26/24 documented as of this encounter
--- OUTSIDE RECORDS SUMMARY | 2025-06-07 04:57 | XMS_ITS | Encounter Summary ---
Author Organization [place] Address [address] [place] [address] Care Team Providers Care Tractor Sweeper Driver Name Role Phone Page, Nikki Vega RN Unavailable Unavailable Bryon Bell MD Primary Care Provider + [phone] Bryon Bell MD Unavailable [phone] Amanda Ibrahim MD Unavailable Unavailabl Laureen Dye APRN [facility] Unavailable [phone] Franny Shrestha PA-C Unavailable [phone] Franny Shrestha PA-C Unavailable [phone] Anyi Broderick MD Unavailable Bryon Bell MD Unavailable [phone] Anyi Broderick MD Unavailable Vitaliy Solo MD Primary Care Provider Bryon Bell MD Unavailable [phone] Anyi Broderick MD Unavailable Aimee Mascorro MD Unavailable [phone] Franny Shrestha PA-C Unavailable [phone] Amanda Ibrahim MD Un[facility] e Encounter Details Date Type Department Care Team (Late st Contact Info) Description 04/18/2021 [facility] [address] [place] [phone] [place] [address] [place] [address] Social History Tobacco Use Types Packs/Day Years [...] PM CDT 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 Gender Identity Male 03/03/2021 2:33 PM CDT [...] on filedocumented in this encounter Care Teams Tractor Sweeper Driver Relationship Specialty Start Date End Date Bryon Bell MD PCP - General Family Medicine 03/06/21 05/05/22 Vitaliy Solo MD [facility] [address] [place] [address] PCP - General Emergency Medicine 07/19/22 Nikki Pierre RN Personal Advocate & Liaison (PAL) Family Medicine 03/06/21 03/25/22 [place] [address] [place] [address] Assigned PCP 03/11/21 01/18/22 Amanda Ibrahim MD Assigned Heart and Vascular Provider 04/22/21 05/26/21 Hardik Laureen GUS Bergman RADIO COMMUNICATIONS MECHANICIAN [address] [place] [address] Assigned Heart and Vascular Provider 05/27/21 01/17/23 Franny Shrestha PA-C [address] [place] [address] Physician Furniture Repairer Urology 10/01/21 Franny Shrestha PA-C [address] [place] [address] Assigned Surgical Provider 12/29/21 11/22/22 [place] [address] [place] [address] Assigned PCP 01/19/22 03/08/22 [place] [address] [place] [address] Assigned PCP 03/09/22 03/22/22 [place] [address] [place] [address] Assigned PCP 03/23/22 06/21/22 [place] [address] [place] [address] Family Medicine 08/27/22 [place] [address] [place] [address] Assigned PCP 08/31/22 10/27/23 Aimee Mascorro MD [address] [place] [address] Assigned Surgical Provider 11/23/22 12/20/22 Franny Shrestha PA-C [address] [place] [address] Assigned Surgical Provider 12/21/22 05/28/24 Amanda Ibrahim MD Assigned Heart and Vascular Provider 01/18/23 01/26/24 [facility] [address] [place] [address] Assigned PCP 10/28/23 10/26/24 documented as of this encounter
--- OUTSIDE RECORDS SUMMARY | 2025-06-07 04:57 | XMS_ITS | Encounter Summary ---
Author Organization [facility] Address [address] [place] [address] Care Team Providers Care Brim Cutter Name Role Phone Laureen Dye APRN [facility] [employer] Unavailable [phone] Franny Shrestha PA-C Unavailable [phone] Franny Shrestha PA-C Unavailable Vitaliy Solo MD Primary Care Provider Bryon Bell MD Unavailable [phone] Anyi Broderick MD Unavailable Aimee Mascorro MD Unavailable [phone] Franny Shrestha PA-C Unavailable Amanda Ibrahim MD Unavailable Unavailabl e [facility] Unavailabl e Encounter Details Date Type Department Care Team (Late st Contact Info) Description 10/07/2022 MyC Medical Advice [facility] [address] [place] [phone] Amanda Ibrahim MD Social History Tobacco Use Types Packs/Day Years Used Date Smoking Tobacco: Never Smokeless Tobacco: Never Alcohol Use Standard Drinks/Week Comments Yes 0 (1 standard drink = 0.6 oz pur e alcohol) occ PHQ-2 Answer Date Recorded PHQ-2 Score 0 12/24/2021 Sex and Gender Information Value Date Recorded Sex Assigned at Male 03/03/2021 2:33 PM CDT 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 Gender Identity Male 03/03/2021 2:33 PM CDT Sexual Orientation Straight 03/03/2021 2: 33 PM CDT documented as of this encounter Plan of Treatment Not on file documented as of this encounter Visit Diagnoses Not on filedocumented in this encounter Care Teams Brim Cutter Relationship Specialty Start Date End Date Vitaliy Solo MD [facility] [address] [place] [address] PCP - General Emergency Medicine 07/19/22 Laureen Dye, SUPERVISOR STITCHING DEPARTMENT WELT SOLE LAYER [address] [place] [address] Assigned Heart and Vascular Provider 05/27/21 01/17/23 Franny Shrestha PA-C [address] [place] [address] Physician Executive Director Urology 10/01/21 Franny Shrestha PA-C [address] [place] [address] Assigned Surgical Provider 12/29/21 11/22/22 [place] [address] [place] [address] Family Medicine 08/27/22 [place] [address] [place] [address] Assigned PCP 08/31/22 10/27/23 Aimee Mascorro MD [address] [place] [address] Assigned Surgical Provider 11/23/22 12/20/22 Franny Shrestha PA-C [address] [place] [address] Assigned Surgical Provider 12/21/22 05/28/24 Amanda Ibrahim MD Assigned Heart and Vascular Provider 01/18/23 01/26/24 [facility] [address] [place] [address] Assigned PCP 10/28/23 10/26/24 documented as of this encounter
--- OUTSIDE RECORDS SUMMARY | 2025-06-07 04:57 | XMS_ITS | Encounter Summary ---
Author Organization [facility] Address [address] [place] [address] Care Team Providers Care Fishing Rod Assembler Name Role Phone Laureen Dye APRN FOOTBALL SCOUT Unavailable [phone] Franny Shrestha PA-C Unavailable [phone] Franny Shrestha PA-C Unavailable [phone] Vitaliy Solo MD Primary Care Provider Bryon Bell MD Unavailable Anyi Broderick MD Unavailable Aimee Mascorro MD Unavailable [phone] Franny Shrestha PA-C Unavailable Amanda Ibrahim MD Unavailable Unavailabl e [facility] Unavailabl e Encounter Details Date Type Department Care Team (Late st Contact Info) Description 10/11/2022 MyC Medical Advice [facility] [address] [place] [phone] Amanda Ibrahim MD Social History Tobacco Use Types Packs/Day Years Used Date Smoking Tobacco: Never Smokeless Tobacco: Never Alcohol Use Standard Drinks/Week Comments Yes 0 (1 standard drink = 0.6 oz pur e alcohol) occ PHQ-2 Answer Date Recorded PHQ-2 Score 0 12/24/2021 Sex and Gender Information Value Date Recorded Sex Assigned at Male 03/03/2021 2:33 PM CDT 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 [address] [place] [address] PCP - General Emergency Medicine 07/19/22 Laureen Dye, HANDS AND DIAL INSPECTOR FOOTBALL SCOUT [address] [place] [address] Assigned Heart and Vascular Provider 05/27/21 01/17/23 Franny Shrestha PA-C [address] [place] [address] Physician Dump Motor Operator Urology 10/01/21 Franny Shrestha PA-C [address] [place] [address] Assigned Surgical Provider 12/29/21 11/22/22 [place] [address] [place] [address] Family Medicine 08/27/22 [place] [address] [place] [address] Assigned PCP 08/31/22 10/27/23 Aimee Mascorro MD [address] [place] [address] Assigned Surgical Provider 11/23/22 12/20/22 Franny Shrestha PA-C [address] [place] [address] Assigned Surgical Provider 12/21/22 05/28/24 Amanda Ibrahim MD Assigned Heart and Vascular Provider 01/18/23 01/26/24 [facility] [address] [place] [address] Assigned PCP 10/28/23 10/26/24 documented as of this encounter
--- OUTSIDE RECORDS SUMMARY | 2025-06-07 04:57 | XMS_ITS | Encounter Summary ---
Author Organization [facility] Address [address] [place] [address] Care Team Providers Care Coremaker Supervisor Name Role Phone Laureen Dye APRN INSPECTOR CASING Unavailable [phone] Franny Shrestha PA-C Unavailable [phone] Franny Shrestha PA-C Unavailable [phone] Vitaliy Solo MD Primary Care Provider Bryon Bell MD Unavailable [phone] Anyi Broderick MD Unavailable Aimee Mascorro MD Unavailable [phone] Franny Shrestha PA-C Unavailable Amanda Ibrahim MD Unavailable Unavailabl e [facility] Unavailabl e Encounter Details Date Type Department Care Team (Late st Contact Info) Description 11/03/2022 MyC Medical Advice [facility] [address] [place] [phone] Amanda Ibrahim MD Social History Tobacco Use Types Packs/Day Years Used Date Smoking Tobacco: Never Smokeless Tobacco: Never Alcohol Use Standard Drinks/Week Comments Yes 0 (1 standard drink = 0.6 oz pur e alcohol) occ PHQ-2 Answer Date Recorded PHQ-2 Score 0 12/24/2021 Sex and Gender Information Value Date Recorded Sex Assigned at Male 03/03/2021 2:33 PM CDT 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 BOX CLOSING MACHINE OPERATOR Gender Identity Male 03/03/2021 2:33 [...] on filedocumented in this encounter Care Teams Coremaker Supervisor Relationship Specialty Start Date End Date Vitaliy Solo MD [facility] [address] [place] [address] PCP - General Emergency Medicine 07/19/22 Laureen Dye, MATERIAL CONTROL MANAGER INSPECTOR CASING [address] [place] [address] Assigned Heart and Vascular Provider 05/27/21 01/17/23 Franny Shrestha PA-C [address] [place] [address] Physician Manager Of Merchandising Urology 10/01/21 Franny Shrestha PA-C [address] [facility] [address] [place] [address] Assigned Surgical Provider 12/29/21 11/22/22 [place] [address] [place] [address] Family Medicine 08/27/22 [place] [address] [place] [address] Assigned PCP 08/31/22 10/27/23 Aimee Mascorro MD [address], [address] [place] [address] Assigned Surgical Provider 11/23/22 12/20/22 Franny Shrestha PA-C [address] [place] [address] Assigned Surgical Provider 12/21/22 05/28/24 Amanda Ibrahim MD Assigned Heart and Vascular Provider 01/18/23 01/26/24 [facility] [address] [place] [address] Assigned PCP 10/28/23 10/26/24 documented as of this encounter
--- OUTSIDE RECORDS SUMMARY | 2025-06-07 04:57 | XMS_ITS | Patient Health Record ---
Author Organization 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
--- OUTSIDE RECORDS SUMMARY | 2025-06-07 04:57 | XMS_ITS | Encounter Summary ---
Author Organization [facility] Address [address] [place] [address] Care Team Providers Care Literary Writer Name Role Phone Page, Nikki Vega RN Unavailable Unavailable Bryon Bell MD Primary Care Provider [phone] Bryon Bell MD Unavailable [phone] Laureen Dye APRN EGG SEPARATOR Unavailable [phone] Franny Shrestha PA-C Unavailable Franny Shrestha PA-C Unavailable Anyi Broderick MD Unavailable Bryon Bell MD Unavailable [phone] Anyi Broderick MD Unavailable Vitaliy Solo MD Primary Care Provider Bryon Bell MD Unavailable [phone] Anyi Broderick MD Unavailable Aimee Mascorro MD Unavailable [phone] Franny Shrestha PA-C Unavailable Amanda Ibrahim MD Unavailable Unavailabl e [facility] Unavailabl e Encounter Details Date Type Department Care Team (Late st Contact Info) Description 12/07/2021 [facility] Medical Advice [facility] [address] [place] [phone] Franny Shrestha PA-C [address] [place] [address] Social History Tobacco Use Types Packs/Day Years Used Date Smoking Tobacco: Never Smokeless Tobacco: Never Alcohol Use Standard Drinks/Week Comments Yes 0 (1 standard drink = 0.6 oz pur e alcohol) occ PHQ-2 Answer Date Recorded PHQ-2 Score 0 09/06/2021 Sex and Gender Information Value Date Recorded Sex Assigned at Male 03/03/2021 2:33 PM CDT 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 TIE 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 Gender Identity Male 03/03/2021 2:33 PM CDT Sexual Orientation Straight 03/03/2021 2: 33 PM CDT documented as of this encounter Plan of Treatment Not on file documented as of this encounter Visit Diagnoses Not on filedocumented in this encounter Care Teams Literary Writer Relationship Specialty Start Date End Date Bryon Bell MD PCP - General Family Medicine 03/06/21 05/05/22 Vitaliy Solo MD [facility] [address] [place] [address] PCP - General Emergency Medicine 07/19/22 Nikki Pierre RN Personal Advocate & Liaison (PAL) Family Medicine 03/06/21 03/25/22 [place] [address] [place] [address] Assigned PCP 03/11/21 01/18/22 Laureen Dye APRN EGG SEPARATOR [address] [place] [address] Assigned Heart and Vascular Provider 05/27/21 01/17/23 Franny Shrestha PA-C [address] [place] [address] Physician Motor Expert Urology 10/01/21 Franny Shrestha PA-C [address] [place] [address] Assigned Surgical Provider 12/29/21 11/22/22 [place] [address] [place] [address] Assigned PCP 01/19/22 03/08/22 [place] [address] [place] [address] Assigned PCP 03/09/22 03/22/22 [place] [address] [place] [address] Assigned PCP 03/23/22 06/21/22 [place] [address] [place] [address] Family Medicine 08/27/22 [place] [address] [place] [address] Assigned PCP 08/31/22 10/27/23 Aimee Mascorro MD [address], [address] [place] [address] Assigned Surgical Provider 11/23/22 12/20/22 Franny Shrestha PA-C [address] [place] [address] Assigned Surgical Provider 12/21/22 05/28/24 Amanda Ibrahim MD Assigned Heart and Vascular Provider 01/18/23 01/26/24 [facility] [address] [place] [address] Assigned PCP 10/28/23 10/26/24 documented as of this encounter
--- OUTSIDE RECORDS SUMMARY | 2025-06-07 04:57 | XMS_ITS | Encounter Summary ---
Author Organization [facility] Address [address] [place] [address] Care Team Providers Care Drone Operator Name Role Phone Page, Nikki Vega RN Unavailable Unavailable Bryon Bell MD Primary Care Provider [phone] Bryon Bell MD Unavailable [phone] Laureen Dye APRN CHIEF CLERK SHELTER Unavailable [phone] Franny Shrestha PA-C Unavailable [phone] Franny Shrestha PA-C Unavailable Anyi Broderick MD Unavailable Bryon Bell MD Unavailable [phone] Anyi Broderick MD Unavailable Vitaliy Solo MD Primary Care Provider Bryon Bell MD Unavailable [phone] Anyi Broderick MD Unavailable Aimee Mascorro MD Unavailable [phone] Franny Shrestha PA-C Unavailable Amanda Ibrahim MD [facility] Unav[facility] e Reason for Visit * Reason Onset Date Comments Outreach 10/10/2021 PAL Encounter Details Date Type Department Care Team (Late st Contact Info) Description 10/10/2021 MyC Medical [facility] [address] [place] [phone] [place] [address] [place] [address] Outreach (PAL) Social History Tobacco Use Types Packs/Day Years Used Date Smoking Tobacco: Never Smokeless Tobacco: Never Alcohol Use Standard Drinks/Week Comments Yes 0 (1 standard drink = 0.6 oz pur e alcohol) occ PHQ-2 Answer Date Recorded PHQ-2 Score 0 09/06/2021 Sex and Gender Information Value Date Recorded Sex Assigned at Male 03/03/2021 2:33 PM CDT 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 BUSINESS 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 Gender Identity Male 03/03/2021 2:33 [...] on filedocumented in this encounter Care Teams Drone Operator Relationship Specialty Start Date End Date Bryon Bell MD PCP - General Family Medicine 03/06/21 05/05/22 Vitaliy Solo MD [facility] [address] [place] [address] PCP - General Emergency Medicine 07/19/22 Nikki Pierre, SHERMAN Personal Advocate & Liaison (PAL) Family Medicine 03/06/21 03/25/22 [place] [address] [place] [address] Assigned PCP 03/11/21 01/18/22 Hardik Laureen Madalyn EQUIPMENT OPERATOR/LABORER/SUPERVISOR CHIEF CLERK SHELTER [address] [place] [address] Assigned Heart and Vascular Provider 05/27/21 01/17/23 Franny Shrestha PA-C [address] [place] [address] Physician Grades 1 6 Tutor Urology 10/01/21 Franny Shrestha PA-C [address] [place] [address] Assigned Surgical Provider 12/29/21 11/22/22 [place] [address] [place] [address] Assigned PCP 01/19/22 03/08/22 [place] [address] [place] [address] Assigned PCP 03/09/22 03/22/22 [place] [address] [place] [address] Assigned PCP 03/23/22 06/21/22 [place] [address] [place] [address] Family Medicine 08/27/22 [place] [address] [place] [address] Assigned PCP 08/31/22 10/27/23 Aimee Mascorro MD [address] [place] [address] Assigned Surgical Provider 11/23/22 12/20/22 Franny Shrestha PA-C [address] [place] [address] Assigned Surgical Provider 12/21/22 05/28/24 Amanda Ibrahim MD Assigned Heart and Vascular Provider 01/18/23 01/26/24 [facility] [address] [place] [address] Assigned PCP 10/28/23 10/26/24 documented as of this encounter
--- OUTSIDE RECORDS SUMMARY | 2025-06-07 04:57 | XMS_ITS | Encounter Summary ---
Author Organization [facility] Address [address] [place] [address] Care Team Providers Care Fraternity Adviser Name Role Phone Laureen Dye APRN COLOR MAKER FORMULATOR Unavailable [phone] Franny Shrestha PA-C Unavailable [phone] Franny Shrestha PA-C Unavailable [phone] Vitaliy Solo MD Primary Care Provider Bryon Bell MD Unavailable [phone] Anyi Broderick MD Unavailable Aimee Mascorro MD Unavailable [phone] Franny Shrestha PA-C Unavailable Amanda Ibrahim MD Unavailable Unavailabl e 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 No / Unsure 08/01/2022 11:05 AM ARMHOLE RAISER LOCKSTITCH documented as of this encounter Plan of Treatment Not on file documented as of this encounter Visit Diagnoses Not on filedocumented in this encounter Care Teams Fraternity Adviser Relationship Specialty Start Date End Date Vitaliy Solo MD [facility] [address] [place] [address] PCP - General Emergency Medicine 07/19/22 Laureen Dye, EMERGENCY PREPAREDNESS MANAGER COLOR MAKER FORMULATOR [address] [place] [address] Assigned Heart and Vascular Provider 05/27/21 01/17/23 Franny Shrestha PA-C [address] [facility] [address] [place] [address] Physician Cancer Genetics Assistant Urology 10/01/21 Franny Shrestha PA-C [address] [facility] [address] [place] [address] Assigned Surgical Provider 12/29/21 11/22/22 [place] [address] [place] [address] Family Medicine 08/27/22 [place] [address] [place] [address] Assigned PCP 08/31/22 10/27/23 Aimee Mascorro MD [address] [place] [address] Assigned Surgical Provider 11/23/22 12/20/22 Franny Shrestha PA-C [address] [place] [address] Assigned Surgical Provider 12/21/22 05/28/24 Amanda Ibrahim MD Assigned Heart and Vascular Provider 01/18/23 01/26/24 [facility] [address] [place] [address] Assigned PCP 10/28/23 10/26/24 documented as of this encounter
--- NOTE | 2025-06-07 05:11 | ED.ABDPAIN ---
HPI - Abdominal Pain General Time Seen by Provider: 05:11 Date Seen: 06/07/25 Chief Complaint: Abdominal Pain Stated Complaint: abdominal pain Time Seen by Provider: 06/07/25 05:11 Source: patient, family, RN notes reviewed and old records reviewed Mode of arrival: ambulatory Limitations: no limitations History of Present Illness HPI narrative: 80-year-old male who presents today with abdominal pain. Patient complains of ?severe abdominal pain? in the low abdomen today, no nausea nor vomiting. Spouse notes patient is more confused than usual and also notes that he has felt constipated for about week. Fevers or chills, urinary frequency which is not for the patient, urine stools. Related Data Home Medications ?Medication ?Instructions ?Recorded ?Confirmed CALCIUM+D CHEW 2 tab PO DAILY 06/15/23 06/07/25 Chewable Vitamin C 3 tab PO DAILY 06/15/23 06/07/25 amiodarone 100 mg tablet 100 mg PO QDAY 01/27/25 06/07/25 lisinopril 40 mg tablet 20 mg PO DAILY 05/04/25 06/07/25 Previous Rx's ?Medication ?Instructions ?Recorded apixaban 5 mg tablet (Eliquis) 5 mg PO BID #60 tabs 08/25/23 valsartan 160 1 tab PO QDAY #90 tabs 05/04/25 mg-hydrochlorothiazide 12.5 mg tablet (Diovan HCT) Allergies Allergy/AdvReac Type Severity Reaction Status Date / Time No Known Drug Allergies Allergy Verified 06/07/25 05:13 [facility] Medical History (Updated 06/07/25 @ 07:27 by Stuart Zayas MD) Encounter for wellness examination in adult ?Z00.00 - Encounter for general adult medical examination without abnormal findings (ICD-10) Weakness ?R53.1 - Weakness (ICD-10) Lyme disease ?A69.20 - Lyme disease, unspecified (ICD-10) Sciatica ?M54.30 - Sciatica, unspecified side (ICD-10) Prediabetes ?R73.03 - Prediabetes (ICD-10) Ascending aorta dilation ?I77.810 - Thoracic aortic ectasia (ICD-10) Cardiomyopathy ?I42.9 - Cardiomyopathy, unspecified (ICD-10) Prostate enlargement ?N40.0 - Benign prostatic hyperplasia without lower urinary tract symptoms (ICD-10) Adrenal abnormality (09/21/21) ?E27.9 - Disorder of adrenal gland, unspecified (ICD-10) History of nephrolithiasis ?Z87.442 - Personal history of urinary calculi (ICD-10) PAF (paroxysmal atrial fibrillation) ?I48.0 - Paroxysmal atrial fibrillation (ICD-10) Mitral regurgitation ?I34.0 - Nonrheumatic mitral (valve) insufficiency (ICD-10) Memory loss, short term ?R41.3 - Other amnesia (ICD-10) History of elevated prostate specific antigen (PSA) ?Z87.898 - Personal history of other specified conditions (ICD-10) Hypertension ?I10 - Essential (primary) hypertension (ICD-10) Surgical History History of cardioversion ?Z92.89 - Personal history of other medical treatment (ICD-10) History of cataract surgery (2016) ?Z98.49 - Cataract extraction status, unspecified eye (ICD-10) Family History Father Coronary artery disease High cholesterol Mother Diabetes High cholesterol High blood pressure Social History (Updated 05/04/25 @ 08:58 by Shaunna Wayne ~ [facility]) What is your current living situation?: declined to answer Problems where you live: no known problems Problems where you live details: NA In the past 12 months, utilities in danger of being shut off: no In past 12 months, lack of transportation kept you from medical appts, meetings, work, or getting things needed for daily living: no In the past 12 mos, have been you worried that your food would run out before you had money to buy more?: never true In the past 12 mos, the food you bought just didn't last and you didn't have money to buy more?: never true Smoking Status: Never smoker Do you use any of these nicotine containing products: None Second hand tobacco smoke exposure: No How often do you have a drink containing alcohol: 2-3 times a week How many standard drinks containing alcohol do you have on a typical day: 1 or 2 How often do you have six or more drinks on one occasion: Never AUDIT-C Alcohol total score: 3 Non-prescribed substance use: denies use Caffeine: No How often does anyone, including family, friends and others, physically hurt you: never How often does anyone, including family, friends and others, insult or talk down to you: never How often does anyone, including family, friends and others, threaten you with harm: never How often does anyone, including family, friends and others, scream or curse at you: never service: Yes Health Related Social Needs: unsheltered homelessness (Z59.02) Exam Narrative: Exam Narrative: General: Well-developed and well-nourished, no acute distress Head: Atraumatic and normocephalic Eyes: Pupils are equal reactive, extraocular motions intact, conjunctiva clear ENT: External nose and ears are normal, posterior pharynx without erythema or exudate Neck: No midline cervical tenderness, full spontaneous range of motion the neck, trachea midline, no adenopathy Heart: Regular rate and rhythm no murmurs or thrills Lungs: Clear to auscultation bilaterally without wheezes or crackles Abdomen: Soft, mild left-sided abdominal tenderness, nondistended with active bowel sounds Musculoskeletal: No tenderness, deformity, or edema Neurologic: Awake, alert, and oriented x3, no gross focal neurologic deficits, cranial nerves intact as tested. Appears to have some word-finding difficulty, speech is fluent but tangential. Psych: Mood and affect are appropriate Skin: No rashes Const: Vital Signs, click to edit/add: Vital Signs - 24 hr 06/07/25 05:02 06/07/25 06:53 Temperature 99.2 F 98.4 F Pulse Rate [Right Pulse Oximeter] 65 Respiratory Rate 20 Blood Pressure [Ri ght Upper Arm] 141/79 H Pulse Oximetry 97 Oxygen Delivery Me thod Room Air Course Course ED Course: Additional records reviewed: Primary care visit from May 04 which was routine physical with attention to hypertension. Additional history from: Spouse Care impacted by: Cardiomyopathy, paroxysmal atrial fibrillation on metoprolol and Eliquis, mitral regurgitation, hypertension, prediabetes Testing considered but not performed: See ED course Disposition: Admit Patient presents today with complaints with severe abdominal pain although patient is sitting comfortably bed with his hands crossed on his abdomen. Mild left-sided abdominal tenderness, labs CT scan ordered. Spouse also notes increased confusion for the last couple of days, patient has some baseline cognitive deficits but this is more severe. No weakness of the upper lower extremities, no difficulty walking. Patient has some word-finding difficulty and circular answers to questions but no dysarthria, no focal neurologic deficits otherwise. CT scan of the head is ordered. Reevaluation(s) Time of Reevaluation #1: 06:25 Reevaluation #1: Labs independently interpreted by me with normal white blood cell count and normal hemoglobin but neutrophils 87.6% representing left shift. Hyponatremia with sodium 133, slightly elevated glucose of 193, normal lactate, normal hepatic panel, normal lipase. CT scan and urinalysis are pending. Time of Reevaluation #2: 06:37 Reevaluation #2: Urinalysis independently interpreted by me with blood, ketones, and positive leukocyte estrase, microscopic exam pending CT abdomen and pelvis independently interpreted by me with gallstone in the gallbladder, inflammatory stranding around the right kidney and right lower quadrant Time of Reevaluation #3: 06:52 Reevaluation #3: IMPRESSION: 1. Relatively severe inflammatory change on the right. This is primarily perinephric and periureteric extending down the right perinephric space towards the pelvis. There is a stone within the right kidney but no evidence of calculus within the ureter, bladder or hydronephrosis. This could be due to recent passage of a stone or urinary tract infection. There is no definite finding of pyelonephritis by CT. 2. Distended gallbladder with a stone in the gallbladder neck. No wall thickening or pericholecystic fluid. Inflammatory change mentioned above is not in the immediate region of the gallbladder. 3. The appendix is not specifically identified though the abnormality is primarily perinephric and probably not primarily associated with the bowel. 4. Other nonacute appearing findings as above Additional Reevaluation(s): 7:13 a.m. labs interpreted by me, urinalysis micro consistent with infection. Discussed disposition with patient's spouse by telephone, plan for admission. Patient with reported severe abdominal pain seems comfortable now, so confusion. Urinalysis consistent with infection, with small amount blood, and also CT scan with perinephric stranding without definite pyelonephritis but with a stone in the right kidney. Severe pain which seems now resolved could be from passed kidney stone with concomitant urinary tract infection encephalopathy. Patient will be admitted for further evaluation treatment, consider further neuro imaging including MRI for acute intracranial pathology including stroke if mentation does not improve with treatment of infection. 7:23 a.m. care discussed with Dr. Nuñez, hospitalist for admission, request blood cultures which are performed prior to IV antibiotics. Patient recheck, he seems a little bit more coherent than earlier, we discussed plan for admission. Vital Signs Vital signs: Initial Vital Signs Temperature 99.2 F 06/07/25 05:02 Temperature Source Temporal Artery Scan 06/07/25 05:02 Pulse Rate 65 06/07/25 05:02 Pulse Rhythm Regular 06/07/25 05:02 Respiratory Rate 20 06/07/25 05:02 Blood Pressure 141/79 H 06/07/25 05:02 Blood Pressure Mean 99 06/07/25 05:02 Blood Pressure Position Sitting 06/07/25 05:02 Pulse Oximetry 97 06/07/25 05:02 Oxygen Delivery Method Room Air 06/07/25 05:02 Vital Signs Temperature 99.2 F 06/07/25 05:02 Pulse Rate 65 06/07/25 05:02 Respiratory Rate 20 06/07/25 05:02 Blood Pressure 141/79 H 06/07/25 05:02 Pulse Oximetry 97 06/07/25 05:02 Oxygen Delivery Method Room Air 06/07/25 05:02 Temperature 98.4 F 06/07/25 06:53 Pulse Rate 65 06/07/25 05:02 Respiratory Rate 20 06/07/25 05:02 Blood Pressure 141/79 H 06/07/25 05:02 Pulse Oximetry 97 06/07/25 05:02 Oxygen Delivery Method Room Air 06/07/25 05:02 MDM - Abdominal Pain Lab Data Labs: Lab Results 06/07/25 06/07/25 06/07/25 Range/Units 05:45 05:58 06:11 WBC 8.98 (4.50-11.00) K/uL RBC 4.34 (4.30-5.90) m/uL Hgb 13.3 L (13.5-17.5) gm/dL Hct 41.4 (37.0-53.0) % MCV 95 (80-100) fL MCH 31 (26-34) pg MCHC 32 (32-36) gm/dL RDW Coeff of Shivani 12.4 (11.5-15.5) % Plt Count 132 L (140-440) K/uL Neut % (Auto) 87.6 H (42.0-72.0) % Lymph % (Auto) 3.0 L (20-44) % [place] % (Auto) 9.1 (0.0-11.0) % Eos % (Auto) 0.0 (0.0-7.0) % Baso % (Auto) 0.1 (0.0-3.0) % Neut # (Auto) 7.90 H (1.7-7.0) K/uL Lymph # (Auto) 0.30 L (0.90-2.90) K/uL [place] # (Auto) 0.80 (0.00-0.90) K/UL Eos # (Auto) 0.00 (0.00-0.50) K/uL Baso # (Auto) 0.01 (0.00-0.30) K/uL Abs Immat Gran (auto) 0.02 (0.00-0.30) K/uL Imm/Tot Granulo (auto) 0.2 % Sodium 133 L (135-149) mmol/L Potassium 4.7 (3.6-5.1) mmol/L Chloride 97 (96-114) mmol/L Carbon Dioxide 27 (20-32) mmol/L Anion Gap 9 (7-15) mEq/L BUN 27 (7-30) mg/dL Creatinine 1.1 (0.5-1.5) mg/dL Estimated Creat Clear 57.81 Estimated GFR 67 ml/min Glucose 193 H (60-115) mg/dL Lactate 1.6 (0.5-1.9) mmol/L Calcium 8.3 L (8.4-10.6) mg/dL Magnesium 2.3 (1.5-2.6) mg/dL Total Bilirubin 1.0 (0.1-1.5) mg/dL Direct Bilirubin 0.3 (0.0-0.5) mg/dL AST 20 (12-35) U/L ALT 17 (4-50) U/L Alkaline Phosphatase 59 (40-150) U/L Total Protein 6.1 (6.0-8.3) g/dL Albumin 3.6 (3.3-5.0) g/dL Lipase 28 (23-300) U/L Urine Color Yellow (Yellow) Urine Appearance Cloudy A (Clear) Urine pH 5.5 (5.0-8.5) Ur Specific [place] 1.025 (1.000-1.030) Urine Protein 3+ A (Negative) Urine Glucose (UA) Negative (Negative) Urine Ketones 3+ A (Negative) Urine Blood 2+ A (Negative) Urine Nitrite Negative (Negative) Urine Bilirubin Negative (Negative) Urine Urobilinogen 1.0 (0.2-1.0) Ur Leukocyte Esterase 1+ A (Negative) Urine RBC 10-25 A (0-2) Urine WBC 25-50 A (0-5) Ur Squamous Epith Cells Few (None-Few) Urine Bacteria Many A (None) Urine Yeast Few A (None) POC Creatinine 1.2 (0.6-1.3) mg/dl Discharge Plan Discharge Clinical Impression: Acute encephalopathy, Kidney calculus, Acute UTI Patient Disposition: Admitted As Observation
--- NOTE | 2025-06-07 05:31 | CRLHL7_ITS ---
For Patients: As a result of the Century Cures Act, medical imaging exams and procedure reports are released immediately into your electronic medical record. You may view this report before your referring provider. If you have questions, please contact your health care provider. INDICATION: Abdominal pain COMPARISON: None TECHNIQUE: CT examination of the abdomen and pelvis was performed following the uneventful intravenous administration of 95 cc of Isovue 370. Thin section axial images were obtained from the lung bases through the pubic symphysis. Oral contrast was not administered. Please note that all CT scans at this facility use dose modulation, iterative reconstruction, and/or weight-based dosing when appropriate to reduce radiation dose to as low as reasonably achievable. FINDINGS: LUNG BASES: Linear opacities at the lung bases are probably due to atelectasis.The heart size is enlarged the lung bases LIVER/BILIARY SYSTEM:The liver is normal in size and configuration. There is no focal mass and there is no intra- or extra hepatic biliary ductal dilatation.Distended gallbladder containing gallstone in the gallbladder neck. No wall thickening or pericholecystic inflammatory process. Inflammatory process discussed below is not in the immediate region of the gallbladder ADRENALS: Normal KIDNEYS, URETERS and BLADDER:The kidneys are normal in size. Low-density lesions likely cysts. Small intrarenal calculus on the right. There is a relatively severe inflammatory change in the right perinephric space extending inferiorly down the right flank. I do not see any evidence of current obstructive uropathy. This probably is not associated with the adjacent colon. This may be due to recent passage of a stone or urinary tract infection. Correlate with urinalysis. SPLEEN:Normal appearance. PANCREAS: Appears normal. RETROPERITONEUM and MESENTERY: There is no mass, adenopathy or aortic aneurysm. Atherosclerotic vascular calcification GASTROINTESTINAL SYSTEM: I do not specifically see the appendix though the abnormality mentioned above is primarily perinephric. No evidence of colitis or mechanical obstruction. E PELVIS: No mass, adenopathy or free fluid.Enlarged prostate OSSEOUS STRUCTURES and ABDOMINAL WALL: There is an age-appropriate appearance of the osseous structures.No significant abdominal wall defect. OTHER: Mild free fluid. No free air IMPRESSION: 1. Relatively severe inflammatory change on the right. This is primarily perinephric and periureteric extending down the right perinephric space towards the pelvis. There is a stone within the right kidney but no evidence of calculus within the ureter, bladder or hydronephrosis. This could be due to recent passage of a stone or urinary tract infection. There is no definite finding of pyelonephritis by CT. 2. Distended gallbladder with a stone in the gallbladder neck. No wall thickening or pericholecystic fluid. Inflammatory change mentioned above is not in the immediate region of the gallbladder. 3. The appendix is not specifically identified though the abnormality is primarily perinephric and probably not primarily associated with the bowel. 4. Other nonacute appearing findings as above Please note that all CT scans at this facility use dose modulation, iterative reconstruction, and/or weight-based dosing when appropriate to reduce radiation dose to as low as reasonably achievable. Dictated by Jayant Booth MD @ 06/07/2025 6:50:09 AM (Electronically Signed)
--- NOTE | 2025-06-07 05:31 | CRLHL7_ITS ---
For Patients: As a result of the Century Cures Act, medical imaging exams and procedure reports are released immediately into your electronic medical record. You may view this report before your referring provider. If you have questions, please contact your health care provider. INDICATION: Altered mental status TECHNIQUE: CT head without contrast. COMPARISON: MR brain 08/02/2024 FINDINGS: MASS EFFECT AND VENTRICLES: No significant midline shift. The lateral ventricles are symmetric. Basal cisterns patent. No sulcal effacement. The ventricles, cisterns, and other CSF containing spaces are symmetrically prominent secondary to diffuse parenchymal volume loss but are otherwise normal as to shape and position. BRAIN: Diffuse cerebral volume loss. Periventricular and subcortical hypodensities likely secondary to age-related microvascular ischemic changes. No acute infarct or hemorrhage. VASCULAR: No acute abnormalities of the cavernous carotids and vertebral vessels on noncontrast exam. EXTRA-AXIAL: Redemonstration of the partially calcified mass measuring 2.9 x 1.9 centimeters () at the right orbital apex, previously characterized as a meningioma. Vascular involvement is not well evaluated on this exam. Similar calcification along the left falx. EXTRA-CRANIAL: No acute calvarial fractures. Mild scattered sinus mucosal thickening. Mastoids are clear. Bilateral lens replacements. IMPRESSION: No acute intracranial abnormality. Redemonstration of the meningioma along the right orbital apex. Please note that all CT scans at this facility use dose modulation, iterative reconstruction, and/or weight-based dosing when appropriate to reduce radiation dose to as low as reasonably achievable. Dictated by Rupa Elena MD @ 06/07/2025 6:44:00 AM (Electronically Signed)
--- OUTSIDE RECORDS SUMMARY | 2025-06-07 05:31 | XMS_ITS | Clinical Summary ---
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 NATURAL VITAMIN D ORAL QIEUSER QIEUSER SPIRONOLACTONE 25 MG TABS Take 1 Tablet (25 mg) by mouth once daily. spironolactone [id number] QIEUSER QIEUSER METOPROLOL SUCCINATE ER 50 MG [id number] Take 50 mg by mouth once daily. metoprolol succinate [id number] QIEUSER QIEUSER LISINOPRIL 40 MG TABS Take 40 mg by mouth once daily. lisinopril [id number] QIEUSER QIEUSER CLOTRIMAZOLE-BETA METHASONE 1-0.05 % CREA Apply small amount to affected area(s) 2 times daily clotrimazole-bet amethasone [id number] QIEUSER QIEUSER ELIQUIS 5 MG TABS TAKE 1 TABLET (5 MG) BY MOUTH 2 TIMES DAILY apixaban [id number] QIEUSER QIEUSER AMIODARONE HCL 200 MG TABS Take 200 mg by mouth once daily. amiodarone [id number] QIEUSER QIEUSER Medications Administered No information available. Allergies, Adverse Reactions, Alerts No information available. Results Date Name Value Unit Range Flag Description Office Visit: Office Visit B rain mass MRI/CT at [facility] Recor MEDS REVIEW Done Documenta tion of [...] Procedures Code Procedure Name Date Entry Date [id number] MRI-Brain W/WO [id number] MRA-Neck W/WO [id number] MultiHance Gadoliniu m-based MR Contrast - 15 ml vial CPT-22645 MRA Neck W/WO CPT-59696 MRI Brain W/WO [id number] Documentation of current medicatio ns Vital Signs Date Name Value Unit Description Weight Measured 194 [lb_av] weight E& M Weight Measured 194 [lb_av] weight E& M Heart Rate 68 /min pulse rate Immunizations No information available. Advance Directives No information available.
[2025-06-07 05:59] LABS: Lactate* 1.6 mmol/L (0.5-1.9)
[2025-06-07 06:00] LABS: Creatinine, Point-of-Care* 1.2 mg/dl (0.6-1.3)
[2025-06-07 06:02] LABS: Hematocrit* 41.4 % (37.0-53.0); Hemoglobin* 13.3 gm/dL (13.5-17.5); Immature Granulocytes Abs Auto 0.02 K/uL (0.00-0.30); Immature Granulocytes Pct Auto 0.2 %; Mean Corpuscular HGB Conc 32 gm/dL (32-36); Mean Corpuscular Hemoglobin 31 pg (26-34); Mean Corpuscular Volume 95 fL (80-100); RDW Coefficient of Variation % 12.4 % (11.5-15.5); Red Blood Count* 4.34 m/uL (4.30-5.90); White Blood Count* 8.98 K/uL (4.50-11.00)
[2025-06-07 06:15] LABS: Albumin* 3.6 g/dL (3.3-5.0); Chloride* 97 mmol/L (96-114)
[2025-06-07 06:16] LABS: Potassium* 4.7 mmol/L (3.6-5.1); Sodium* 133 mmol/L (135-149)
[2025-06-07 06:18] LABS: Alanine Aminotransferase* 17 U/L (4-50); Alkaline Phosphatase* 59 U/L (40-150); Anion Gap 9 mEq/L (7-15); Aspartate Amino Transferase* 20 U/L (12-35); Bilirubin Direct* 0.3 mg/dL (0.0-0.5); Bilirubin Total* 1.0 mg/dL (0.1-1.5); Blood Urea Nitrogen* 27 mg/dL (7-30); Calcium* 8.3 mg/dL (8.4-10.6); Carbon Dioxide* 27 mmol/L (20-32); Creatinine* 1.1 mg/dL (0.5-1.5); Est. Creatinine Clearance* 57.81; Estimated Glomerular Filt Rate 67 ml/min; Glucose* 193 mg/dL (60-115); Total Protein* 6.1 g/dL (6.0-8.3)
[2025-06-07 06:21] LABS: Lymphocytes Absolute Auto 0.30 K/uL (0.90-2.90); Slide Review Reflex No
[2025-06-07 06:26] LABS: Appearance Urine Cloudy (Clear)
[2025-06-07] MEDS: PIPERACILLIN/TAZOBACTAM 3.375 GM in 0.9 % SODIUM CHLORIDE Mini-bag 100 ML IVPB (07:43)
[2025-06-07 08:00] LABS: Ammonia* < 8.7 umol/L (13.1-30.0)
--- NOTE | 2025-06-07 09:33 | PM.IMHP1 ---
Assessment and Plan Assessment and plan (1) Acute encephalopathy: Problem comment: - ddx: UTI, other infection, metabolic disturbance, intracranial process/CVA, arrythmia - TSH pending, MRI pending, blood and urine cultures pending - treat presumed UTI with Ceftriaxone 1g X24, follow on telemetry - OT evaluation Status: Acute (2) Acute UTI: Problem comment: - culture pending, on Ceftriaxone Status: Acute (3) PAF (paroxysmal atrial fibrillation): Problem comment: - on 100mg Amiodarone daily + Apixaban Status: Chronic (4) Meningioma: Problem comment: - noted on chart review (MRI from 06/28 and 11/27), 31mm R anterior clinoid - will reassess with MRI 06/07/25 Status: Acute (5) Memory loss, short term: Problem comment: - notable history of this by chart review and from , but AMS on admission 06/07 is dramatically different from baseline - OT evaluation, MRI Status: Chronic (6) Thrombocytopenia: Problem comment: - 06/07: platelets 132 (baseline normal), likely related to acute illness - no evidence of acute bleeding, will follow Status: Acute Plan - per above - Eliquis for ppx - updated bedside, questions answered Hospitalist- H&P: HPI History of Present Illness Date Seen: 06/07/25 Chief complaint: abdominal pain Narrative: Justin Mendez is a 80 year old male who presented to the ER this morning for suprapubic discomfort. He has had symptoms on and off for weeks, worse in the last 2-3 days. Has had associated nausea and constipation. notes significant confusion (history of mild cognitive impairment, the last 2 days have been dramatically different per ) over the last 2-3 days with decreased energy and an episode of shaking on Friday after nondenominational (unclear if febrile at that time). He has had intermittent right-sided back pain as well, + polyuria. Comorbidities include paroxysmal atrial fibrillation (rate controlled on amiodarone, anticoagulated on apixaban), essential hypertension, meningioma, symptoms of BPH with notable enlarged prostate on imaging. ER Course and Findings: - Inflammation R collecting system (recently passed stone vs ascending infection), no stones in ureter or bladder - white blood count 8.9 with 87% PMNs, platelets 132, blood sugar 193, sodium 130, ammonia negative - negative head CT - blood and urine cultures collected, given one dose of Zosyn - urine with ketones, blood, bacteriuria Patient is admitted to the hospital for workup of acute altered mental status, treatment of UTI. Histories reviewed and updated below. Dr. Germania prakash is PCP. Review of Systems Narrative: - polyuria (going every 1-2 hours, even overnight). Notes incomplete bladder emptying - feels constipated, last BM 06/05, then 4 days prior to that Medical Decision Making Medical Decision Making Code Status: Full only until last rites (Islam) Has patient completed a Health Care Directive: No During This Stay, Who Would You Like To Make Decisions For You In The Event You Are Unable To Make Them For Yourself?: Erin Relevant situational information: DNR after Islam last rites [facility] Medical History (Updated 06/07/25 @ 10:36 by Kiera Nuñez MD) Meningioma ?D32.9 - Benign neoplasm of meninges, unspecified (ICD-10) Lyme disease ?A69.20 - Lyme disease, unspecified (ICD-10) Sciatica ?M54.30 - Sciatica, unspecified side (ICD-10) Prediabetes ?R73.03 - Prediabetes (ICD-10) Ascending aorta dilation ?I77.810 - Thoracic aortic ectasia (ICD-10) Cardiomyopathy ?I42.9 - Cardiomyopathy, unspecified (ICD-10) Prostate enlargement ?N40.0 - Benign prostatic hyperplasia without lower urinary tract symptoms (ICD-10) Adrenal abnormality (09/21/21) ?E27.9 - Disorder of adrenal gland, unspecified (ICD-10) History of nephrolithiasis ?Z87.442 - Personal history of urinary calculi (ICD-10) PAF (paroxysmal atrial fibrillation) ?I48.0 - Paroxysmal atrial fibrillation (ICD-10) Mitral regurgitation ?I34.0 - Nonrheumatic mitral (valve) insufficiency (ICD-10) Memory loss, short term ?R41.3 - Other amnesia (ICD-10) History of elevated prostate specific antigen (PSA) ?Z87.898 - Personal history of other specified conditions (ICD-10) Hypertension ?I10 - Essential (primary) hypertension (ICD-10) Surgical History History of cardioversion ?Z92.89 - Personal history of other medical treatment (ICD-10) History of cataract surgery (2017) ?Z98.49 - Cataract extraction status, unspecified eye (ICD-10) Family History Father Coronary artery disease High cholesterol Mother Diabetes High cholesterol High blood pressure Social History (Updated 06/07/25 @ 09:51 by Kiera Nuñez MD) 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 Nonsmoker, rare ETOH. Only Full Code until Islam last rites, then DNR/DNI. What is your current living situation?: I presently have a place to live Problems where you live: no known problems Problems where you live details: No In the past 12 months, utilities in danger of being shut off: no In past 12 months, lack of transportation kept you from medical appts, meetings, work, or getting things needed for daily living: no In the past 12 mos, have been you worried that your food would run out before you had money to buy more?: never true In the past 12 mos, the food you bought just didn't last and you didn't have money to buy more?: never true Highest level of school completed/degree received: high school graduate Smoking Status: Former smoker Do you use any of these nicotine containing products: None Second hand tobacco smoke exposure: No How often do you have a drink containing alcohol: monthly or less How many standard drinks containing alcohol do you have on a typical day: 1 or 2 How often do you have six or more drinks on one occasion: Never AUDIT-C Alcohol total score: 1 Non-prescribed substance use: denies use Caffeine: Yes How often does anyone, including family, friends and others, physically hurt you: never How often does anyone, including family, friends and others, insult or talk down to you: never How often does anyone, including family, friends and others, threaten you with harm: never How often does anyone, including family, friends and others, scream or curse at you: never service: Yes Meds Home Medications and Allergies Home Medications ?Medication ?Instructions ?Recorded ?Confirmed ?Type CALCIUM+D CHEW 2 tab PO DAILY 06/15/23 06/07/25 History Chewable Vitamin C 3 tab PO DAILY 06/15/23 06/07/25 History apixaban 5 mg tablet (Eliquis) 5 mg PO BID #60 tabs 08/25/23 06/07/25 Rx amiodarone 100 mg tablet 100 mg PO QDAY 01/27/25 06/07/25 History valsartan 160 1 tab PO DAILY 06/07/25 06/07/25 History mg-hydrochlorothiazide 12.5 mg tablet (Diovan HCT) Allergies Allergy/AdvReac Type Severity Reaction Status Date / Time No Known Drug Allergies Allergy Verified 06/07/25 05:13 Exam Narrative: Exam Narrative: GEN: Awake and alert, answering most questions appropriately, but notes baseline confusion HEENT: PERRL and EOMIs bilaterally, no scleral icterus. R palate immobile with mild uvular deviation CV: Irregular rate, no concerning murmurs R: LCTA bilaterally without concerning wheezing, air movement adequate Ext: wwp, no concerning edema Skin: Scattered SKs, no concerning skin lesions or rashes on exposed skin Neuro: No resting tremor, no facial droop. 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), no agitation Const: Vital Signs, click to edit/add: Vital Signs - 24 hr 06/07/25 05:02 06/07/25 06:53 06/07/25 07:51 Temperature 99.2 F 98.4 F Pulse Rate [Right Brachial] Pulse Rate [Right Pulse Oximeter] 65 57 L Respiratory Rate 20 16 Blood Pressure [Ri ght Arm] Blood Pressure [Ri ght Upper Arm] 141/79 H 126/66 Pulse Oximetry 97 93 Oxygen Delivery Me thod Room Air Room Air 06/07/25 08:28 Temperature 98.9 F Pulse Rate [Right Brachial] 52 L Pulse Rate [Right Pulse Oximeter] Respiratory Rate 16 Blood Pressure [Ri ght Arm] 116/70 Blood Pressure [Ri ght Upper Arm] Pulse Oximetry 97 Oxygen Delivery Me thod Room Air Hospitalist - H&P: Result Labs Labs: Short CBC 06/07/25 Range/Units 05:45 WBC 8.98 (4.50-11.00) K/uL Hgb 13.3 L (13.5-17.5) gm/dL Hct 41.4 (37.0-53.0) % Plt Count 132 L (140-440) K/uL BMP 06/07/25 05:45 Sodium 133 L Potassium 4.7 Chloride 97 Carbon Dioxide 27 BUN 27 Creatinine 1.1 Glucose 193 H Calcium 8.3 L Liver Function 06/07/25 Range/Units 05:45 Total Bilirubin 1.0 (0.1-1.5) mg/dL Direct Bilirubin 0.3 (0.0-0.5) mg/dL AST 20 (12-35) U/L ALT 17 (4-50) U/L Alkaline Phosphatase 59 (40-150) U/L Albumin 3.6 (3.3-5.0) g/dL Urine 06/07/25 Range/Units 06:11 Urine Color Yellow (Yellow) Urine Appearance Cloudy A (Clear) Urine pH 5.5 (5.0-8.5) Ur Specific [place] 1.025 (1.000-1.030) Urine Protein 3+ A (Negative) Urine Glucose (UA) Negative (Negative)
--- NOTE | 2025-06-07 09:39 | CRLHL7_ITS ---
For Patients: As a result of the Cures Act, medical imaging exams and procedure reports are released immediately into your electronic medical record. You may view this report before your referring provider. If you have questions, please contact your health care provider. INDICATION: Altered mental status. TECHNIQUE: Multisequence multiplanar MRI of the brain without the use of intravenous contrast. COMPARISON: MRI brain dated 08/02/2024. FINDINGS: No evidence of acute ischemia. Similar scattered as well as confluent T2 prolongation within the supratentorial white matter typical of moderate chronic small vessel ischemic changes. Unchanged punctate focus of susceptibility artifact in the right frontal lobe. On limited noncontrast evaluation, similar right paraclinoid extra-axial lesion partially encasing the right ICA, CLEOPATRA, and MCA. The ventricles are unchanged in size. There is similar moderate diffuse parenchymal volume loss. Flow voids of the larger intracranial arteries are preserved. Normal calvarial bone marrow signal intensity. Bilateral pseudophakia. Mild diffuse paranasal sinus mucosal thickening and right mastoid effusion. IMPRESSION: 1. No acute intracranial abnormality. Specifically, no evidence of acute ischemia. 2. Similar moderate diffuse parenchymal volume loss and chronic small-vessel ischemic changes. 3. On limited evaluation, similar right paraclinoid extra-axial lesion, likely meningioma, partially encasing the right ICA, CLEOPATRA, and MCA. 4. Mild diffuse paranasal sinus mucosal thickening and right mastoid effusion. Dictated by Anil Escobar MD @ 06/07/2025 12:47:15 PM (Electronically Signed)
[2025-06-07] MEDS: AMIODARONE 200 MG TABLET 100 MG PO (10:47)
[2025-06-07] MEDS: cefTRIAXone 1 GM in 0.9 % SODIUM CHLORIDE Mini-bag 100 ML IVPB (10:50)
--- NOTE | 2025-06-07 14:49 | PC.SOCIAL ---
Social work note: explosives worker attempted to meet with the pt two different times today for a general check-in. The pt was with other disciplines each time. explosives worker will attempt to meet with the pt again tomorrow if a social work need arises, as of right now there is no social work consult on this pt. Social work to follow-up if needed.
[2025-06-07] MEDS: APIXABAN 5 MG TABLET PO (21:06)
--- NOTE | 2025-06-07 22:04 | PC.NURSE ---
pt is pleasant and cooperative with cares. Pt a/o x3 with occasional forgetfulness, SBA with gait belt. Pt reported mild pain but declined pain medications. Pt had small appetite, no nausea reported. Pt is in bed sleeping comfortably at this time, chest rise and fall noted.
[2025-06-08 04:05] VITALS: BP 113/76; PULSE 92; RESP 18; TEMP 36.5; O2SAT 96
[2025-06-08 06:50] LABS: Hematocrit* 36.8 % (37.0-53.0); Hemoglobin* 12.0 gm/dL (13.5-17.5); Immature Granulocytes Abs Auto 0.01 K/uL (0.00-0.30); Immature Granulocytes Pct Auto 0.1 %; Mean Corpuscular HGB Conc 33 gm/dL (32-36); Mean Corpuscular Hemoglobin 31 pg (26-34); Mean Corpuscular Volume 96 fL (80-100); RDW Coefficient of Variation % 12.7 % (11.5-15.5); Red Blood Count* 3.85 m/uL (4.30-5.90); White Blood Count* 8.45 K/uL (4.50-11.00)
--- NOTE | 2025-06-08 06:51 | PC.NURSE ---
End of Shift: Pt alert and oriented with periods of some confusion at times. Utilized call light appropriately. Denies pain at this time. SBA. Pt in bed, appears to be resting call light within reach.
[2025-06-08 06:54] LABS: Lymphocytes Absolute Auto 0.70 K/uL (0.90-2.90); Slide Review Reflex No
[2025-06-08 07:15] LABS: Albumin* 3.0 g/dL (3.3-5.0); Chloride* 102 mmol/L (96-114); Potassium* 4.0 mmol/L (3.6-5.1); Sodium* 135 mmol/L (135-149)
[2025-06-08 07:18] LABS: Alanine Aminotransferase* 12 U/L (4-50); Alkaline Phosphatase* 48 U/L (40-150); Anion Gap 8 mEq/L (7-15); Aspartate Amino Transferase* 17 U/L (12-35); Bilirubin Total* 0.7 mg/dL (0.1-1.5); Blood Urea Nitrogen* 22 mg/dL (7-30); Calcium* 7.6 mg/dL (8.4-10.6); Carbon Dioxide* 25 mmol/L (20-32); Creatinine* 0.9 mg/dL (0.5-1.5); Est. Creatinine Clearance* 63.59; Estimated Glomerular Filt Rate 86 ml/min; Glucose* 119 mg/dL (60-115); Total Protein* 5.3 g/dL (6.0-8.3)
[2025-06-08 07:22] VITALS: PULSE 82
[2025-06-08 08:28] VITALS: BP 136/94; PULSE 94; RESP 18; TEMP 36.8; O2SAT 96
[2025-06-08 08:35] VITALS: RESP 18; O2SAT 96
[2025-06-08] MEDS: AMIODARONE 200 MG TABLET 100 MG PO (09:02)
[2025-06-08] MEDS: APIXABAN 5 MG TABLET PO (09:03)
--- NOTE | 2025-06-08 10:46 | REH.SLP ---
Orders received, chart reviewed and case discussed with care team at rounds.No reported difficulty with swallowing and is tolerating a regular diet with thin liquids. Patient has history of MCI with word finding difficulties and would benefit from outpatient speech therapy. Will stop order and outpatient therapy order will be placed.
--- NOTE | 2025-06-08 11:00 | PM.DS1 ---
DS: Providers Provider Date Seen: 07/13/25 Date of admission: 06/07/25 08:07 Primary care physician: Vitaliy Solo MD Admitting Clinician: Kiera Nuñez MD Consults: 06/07/25 09:37 Consult to Occupational Therapy [CONS] Routine Comment: Reason(s) for OT Consult:: Evaluate and Treat Any Restrictions?:: No Restrictions Attending Physician on discharge: Kiera Nuñez MD Date of Discharge: 06/08/25 DS: Diagnosis Discharge Diagnosis (1) Acute encephalopathy: Status: Acute Problem details: - ddx: UTI, other infection, metabolic disturbance, intracranial process/CVA, arrythmia - reassuring TSH, baseline MRI, labs remained stable - treated presumed UTI with Ceftriaxone 1g X24, transitioned to oral Keflex upon discharge - OT evaluated, recommend outpatient f/u with OT - significant improvement 06/08/2025, appropriate for discharge home with close follow-up (2) Acute UTI: Status: Acute Problem details: - culture pending, on Ceftriaxone during stay, transitioned to Keflex for discharge (3) PAF (paroxysmal atrial fibrillation): Status: Chronic Problem details: - on 100mg Amiodarone daily + Apixaban - intermittently at heart rates greater than 100 during stay, return to baseline with rest - outpatient follow-up (4) Meningioma: Status: Acute Problem details: - noted on chart review (MRI from 06/28 and 11/27), 31mm R anterior clinoid - repeat MRI stable on 06/07/25 (5) Memory loss, short term: Status: Chronic Problem details: - notable history of this by chart review and from , but AMS on admission 06/07 is dramatically different from baseline - baseline 06/08, continued outpatient follow-up (6) Thrombocytopenia: Status: Acute Problem details: - 06/07: platelets 132 (baseline normal), likely related to acute illness - 06/08: 122, no evidence of acute bleeding, outpatient (7) Polyuria: Status: Acute Problem details: - history of BPH, likely incomplete emptying - discussed initiation of Flomax, patient would like to wait and discuss further with PCP DS: Summary Hospital Course Hospital Course: Doing was admitted to the hospital on 06/07/2025 for acute confusion and word-finding difficulties. During stay, he had reassuring labs (including electrolytes, TSH, and ammonia), reassuring MRI (baseline with known meningioma). Imaging concerning for possible ascending UTI versus recently passed stone, covered with ceftriaxone. Seen by Occupational therapy who recommends continued outpatient follow-up with their team, this was ordered upon discharge. Back to baseline on 06/08/2025 in requesting discharge home. Comorbidities remained stable. Urine and blood cultures currently negative; will discharge on oral Keflex and have close PCP follow-up to re-evaluate. Also discussed possible initiation of Flomax for symptoms of BPH, patient and would like to discuss further with PCP. Status at Discharge Functional status at discharge: independent ambulation Overall status at discharge: patient is progressing back to baseline Time Spent with Patient Time attestation: Total time spent providing and/or coordinating discharge services: Time spent: Greater than 30 minutes Specific discharge activities: Medication reconciliation, patient Education, updates to Exam Narrative: Exam Narrative: GEN: Alert and oriented, sitting comfortably in bedside chair and answering questions appropriately HEENT: EOMIs bilaterally, no scleral icterus CV: Irregular, rate in the 90s R: LCTA bilaterally Ext: wwp, no concerning edema Neuro: No focal deficits, no word-finding difficulties, seen ambulating with PT Psych: Appropriate Const: Vital Signs, click to edit/add: Vital Signs - 24 hr 06/07/25 15:00 06/07/25 15:00 06/07/25 15:00 Temperature 97.3 F L Pulse Rate Pulse Rate [Right Pulse Oximeter] 84 84 Respiratory Rate 14 14 14 Blood Pressure [Ri ght Arm] 103/69 Pulse Oximetry 98 98 Oxygen Delivery Me thod Room Air Room Air 06/07/25 15:00 06/07/25 18:24 06/07/25 23:00 Temperature 97.3 F L Pulse Rate 79 84 Pulse Rate [Right Pulse Oximeter] 75 Respiratory Rate 16 Blood Pressure [Ri ght Arm] 128/79 Pulse Oximetry 97 Oxygen Delivery Me thod Room Air 06/07/25 23:00 06/07/25 23:00 06/07/25 23:51 Temperature 98.2 F Pulse Rate Pulse Rate [Right Pulse Oximeter] 75 97 Respiratory Rate 16 16 16 Blood Pressure [Ri ght Arm] 116/80 Pulse Oximetry 96 96 Oxygen Delivery Me thod Room Air Room Air 06/08/25 04:05 06/08/25 07:22 06/08/25 08:28 Temperature 97.7 F 98.3 F Pulse Rate 82 Pulse Rate [Right Pulse Oximeter] 92 94 Respiratory Rate 18 18 Blood Pressure [Ri ght Arm] 113/76 136/94 H Pulse Oximetry 96 96 Oxygen Delivery Me thod Room Air Room Air 06/08/25 08:35 Temperature Pulse Rate Pulse Rate [Right Pulse Oximeter] Respiratory Rate 18 Blood Pressure [Ri ght Arm] Pulse Oximetry 96 Oxygen Delivery Md thod Room Air DS: Data Data Completed and Pending Labs on day of discharge: Labs from last 24 hours 06/08/25 06:10 WBC 8.45 RBC 3.85 L Hgb 12.0 L Hct 36.8 L MCV 96 MCH 31 MCHC 33 RDW Coeff of Shivani 12.7 Plt Count 122 L Neut % (Auto) 81.7 H Lymph % (Auto) 8.0 L Angelina % (Auto) 10.1 Eos % (Auto) 0.1 Baso % (Auto) 0.0 Neut # (Auto) 6.90 Lymph # (Auto) 0.70 L Angelina # (Auto) 0.90 Eos # (Auto) 0.01 Baso # (Auto) 0.00 Abs Immat Gran (auto) 0.01 Imm/Tot Granulo (auto) 0.1 Sodium 135 Potassium 4.0 Chloride 102 Carbon Dioxide 25 Anion Gap 8 BUN 22 Creatinine 0.9 Estimated Creat Clear 63.59 Estimated GFR 86 Glucose 119 H Calcium 7.6 L Magnesium 2.6 Total Bilirubin 0.7 AST 17 ALT 12 Alkaline Phosphatase 48 Total Protein 5.3 L Albumin 3.0 L Preliminary micro results at discharge 06/07/25 07:31 Blood Culture - Preliminary Blood NO GROWTH AFTER 24 HOURS 06/07/25 07:26 Blood Culture - Preliminary Blood NO GROWTH AFTER 24 HOURS 06/07/25 06:11 Urine Culture - Preliminary Urine,Clean Catch Culture in Progress Discharge Plan Discharge Disposition: Home, Self-Care Date of Admission: 06/07/25 08:07 Attending Provider on Discharge: Kiera Nuñez Primary Care Provider: Vitaliy Solo Condition: Improved Anticipated Discharge Date/Time: 06/08/25 10:56 Discharge Medications: New cephalexin 500 mg Capsule 500 mg PO TID 5 Days Qty: 15 0RF Continued amiodarone 100 mg tablet 100 mg PO QDAY Rx Instructions: reduced to 100mg PO QD per cardiology 01/27/25 Dr. Solo has been prescribing Chewable Vitamin C 3 tab PO DAILY Rx Instructions: 3 CHEWABLE VIT C TABLETS DAILY, DOSE UNKNOW CALCIUM+D CHEW 2 tab PO DAILY Rx Instructions: CALCIUM + D - 2 CHEW TABS DAILY, DOSE UNKNOWN valsartan-hydrochlorothiazide [Diovan HCT] 160-12.5 mg tablet 1 tab PO DAILY Eliquis 5 mg tablet 5 mg PO BID Qty: 60 2RF Discharge Orders: Discharge Order (Routine); Ordered 06/08/25 Ordered By: Kiera Nuñez Patient Education: Cephalexin (By mouth), Urinary Tract Infection in Men (DC), Urinary Tract Infection in Older Adults (DC) Additional Instructions: We will call you if your urine grows any bacteria - for now, take the 5 days of antibiotics as prescribed. When you see Dr. Solo in followup, check in about your prostate (could consider a new medication to help with your frequent urination). Activity Level: Activity as Tolerated Discharge Diet: Regular Follow Up Appointments: Vitaliy Solo MD [Primary Care Provider, Internal Medicine] - 06/15/25 8:00 am Referral Note: [facility] for hospital follow-up, repeat CBC, discuss polyuria. Forms: [employer] Info Instructions
[2025-06-08 11:38] VITALS: BP 120/78; PULSE 97; RESP 18; TEMP 37.1; O2SAT 97
--- NOTE | 2025-06-08 15:54 | PC.NURSE ---
shift note: pt is alert to self and situation; forgetful. pt is up to BR SBA. pt tachycardic no >118 when up to BR. tele in place. MD notified by RN. No new orders given. pt AMB IND; denies N/V and pain. pt provided education on medications and follow up by RN. IV access removed. pt wheeled out by BELL to personal vehicle to be driven home by .
--- NOTE | 2025-06-13 14:58 | PM.EN ---
Chart Event Note Time Seen by Provider: 14:45 Date Seen: 06/13/25 Chart Event Note: I called Justin for follow up of his UC results. Justin says he's starting to feel better. He is almost done with the cephalexin. He had an upset stomach for a few days when he left the hospital, but is now starting to feel better. We discussed his UC results and that the bacterium that grew out is resistant to the oral medication he is taking currently and that I would like to switch him to a different medication. He was agreeable to this and I verified his pharmacy and sent a prescription over for cefdinir 300 mg twice a day for 10 days to treat Klebsiella oxytocia.
== END 2025-06-08 12:40 | disposition home or self-care (01) ==
LOC: ED 07:27 → MEDSURG 08:08
PROVIDERS: Admitting Provider Family Medicine; Emergency Provider Family Medicine; PCP Internal Medicine; Visit Provider Family Medicine
DX: G93.40 Encephalopathy, unspecified (principal); N39.0 Urinary tract infection, site not specified; N20.0 Calculus of kidney; I48.0 Paroxysmal atrial fibrillation; D32.9 Benign neoplasm of meninges, unspecified; R41.3 Other amnesia; D69.6 Thrombocytopenia, unspecified; R35.89 Other polyuria
CPT/HCPCS: 36415; 51798; 70450; 70551; 74177; 80048; 80053; 80076; 81001; 82140; 82565; 83605; 83690; 83735; 84443; 85025; 87040; 87086; 93005; 96365; 96366; 97165; 99285; A9270; G0378; J0696; J2543; J7030; Q9967